=== PATIENT | female | born 2000 | race Caucasian/White ===

== ENCOUNTER 2024-06-10 20:53 | Outpatient (REF) | payer BC, SELFPAY | END 2024-06-10 20:54 | disposition home or self-care (01) | LOC: LAB 20:53 | PROVIDERS: Visit Provider Obstetrics & Gynecology | DX: Z01.419 Encounter for gynecological examination (general) (routine) without abnormal findings (principal) | CPT/HCPCS: 88175 ==

== ENCOUNTER 2024-12-03 16:11 | Outpatient (OUT) | payer BC, SELFPAY ==
--- OUTSIDE RECORDS SUMMARY | 2024-12-03 16:19 | XMS_ITS | CCD ---
Author Organization [facility] [place] [facility] Care Team Providers Care Internet Database Specialist Name Role Phone Ihsan Camarillo Unavailable [phone] Delroy Aguirre Unavailable Unavailable Goodridge, Ramila Martínez Unavailable Unavailable Unavailable MD FRANK GOFF Attending Unavailable Sivan, Mrs. Washingtonlesia Quintanilla Primary Care Unavailabl e Goodridge, Mrs. Washington[place]ia Quintanilla Referring Unavailabl e Sippey, Dr. Wing Attending Unavailable Sivan, Mrs. Washington[place]ia Quintanilla Primary Care Unavailabl e Sivan, Talha Ramilalesia Quintanilla Attending Unavailabl e Goodridge, Mrs. [place]ia Quintanilla Primary Care Unavailabl e Sivan, Ramila Quintanilla Referring Unavailabl e Goodridge, Mrs. [place]ia Quintanilla Referring Unavailabl e Goodridge, Talha Quintanilla Attending Unavailabl e Sivan, Mrs. Washington[place]ia Quintanilla Primary Care Unavailabl e Goodridge, Mrs. Washington[place]ia Quintanilla Referring Unavailabl e Sivan, Ramila Quintanilla Attending Unavailabl e Sivan, Talha Quintanilla Primary Care Unavailabl e Goodridge [employer]-Ramila PERSON Primary Care Provider Goodridge ARDEN-Ramila PERSON Unavailable SIVAN, RAMILA Martínez Primary Care Unavailable SIVAN, RAMILA Martínez Primary Care Unavailable Iliano Gladys DUNLAP Unavailable Stentz Josr PINTO Primary Care Provider Ihsan Camarillo MD Primary Care Provider Unavailable Primary Care Provider Unavailabl e Stentz PAJosr Orlando Primary Care Provider STENTJOSR Walton Primary Care Unavailable DELROY AGUIRRE Attending Unavailable JOSSUE, Edy R Admitting Unavailable JOSSUE, Edy R Attending Unavailable STENTZ, JOSR Primary Care Physician [phone] STENTZ, JOSR Primary Care Unavailable JOSSUE, EDY Referring Unavailable JOSSUE, EDY Attending Unavailable JOSSUE, Edy R Attending Unavailable JOSSUE, Edy R Admitting Unavailable Stentz Josr BROWNE Primary Care Provider [phone] JOSSUE, EDY Attending Unavailable JOSSUE, EDY Attending Unavailable STENTZ, JOSR Attending Unavailable STENTZ, JOSR Primary Care Unavailable STENTZ, JOSR Primary Care Unavailable BRENNON BURT Attending Unavailable STENTZ, JOSR Attending Unavailable STENTZ, JOSR Referring Unavailable STENTZ, JOSR Primary Care Unavailable Medications Current Medications Medication Drug Class(es) Dates Sig (Normalized) Sig (Original) ascorbic acid 1000 mg oral tablet (7 sources) Vitamin C take 1 tablet by mouth in the morning Ascorbic Acid (vitamin C) 1000 MG tablet Take 1,000 mg by mouth in the morning. Active azithromycin 500 mg oral tablet (2 sources) Macrolide Antimicrobial Start: 01-09-2024 End: 01-12-2024 take 1 tablet by mouth once daily azithromycin (Zithromax) 500 mg tablet Indications: Traveler's diarrhea Take 1 tablet (500 mg) by mouth once daily for 3 days. 3 tablet 01/09/2024 01/12/2024 Active Start: 02-19-2021 take 2 tablets by mo uth once, then take 1 tablet by mouth once daily azithromycin 250 mg oral tablet ; Take 2 tabs (500mg) x 1 days, then 1 tab (250mg) once daily x 4 days Quantity: 6 Refills: 0 Ordered: 19-Feb-2021 Delroy Aguirre Start: 19-Feb-2021 Generic Substitution Allowed Comments: Do not take dairy products, antacids, or iron preparations within one hour of this medication.Finish all this medication unless otherwise directed by prescriber. Comment on above: Do not take dairy pr oducts, antacids, or iron preparations within one hour of this medication.Finish all this medication unless otherwise directed by prescriber. b complex 0.4 mg tablet (4 sources) Start: 05-03-2023 End: 05-02-2024 take 1 tablet by mouth once daily b complex 0.4 mg tablet Indications: Low vitamin B12 level Take 1 tablet by mouth once daily. 90 tablet 3 05/03/2023 05/02/2024 Active take 1 tablet by mouth once fritz y b complex 0.4 mg tablet Take 1 tablet by mouth once daily. 0 Active 12 hr buPROPion hydrochloride 150 mg extended release oral tablet (13 sources) Aminoketone Start: 02-03-2023 End: 11-23-2024 take 1 tablet by mouth once daily buPROPion SR (Wellbutrin SR) 150 mg 12 hr tablet Indications: Generalized anxiety disorder Take 1 tablet (150 mg) by mouth once daily. 90 tablet 3 11/24/2023 11/23/2024 Active Start: 03-17-2022 take 1 tablet by diane th once daily buPROPion HCl ER (SR) 150 MG Oral Tablet Extended Release 12 Hour Take 1 tablet daily Quantity: 30 Refills: 5 Ordered: 14-Sep-2022 Ramila Burden Start : 17-Mar-2022 Active busPIRone hydrochloride 5 mg oral tablet (12 sources) Start: 02-03-2023 End: 11-24-2023 busPIRone (Buspar) 5 mg tabl et Indications: Generalized anxiety disorder Take 1 tablet in AM and 2 tablets in PM 270 tablet 3 11/24/2023 Active Start: 06-16-2022 take 1 tablet by diane th in the morning, then take 2 tablets by mouth at bedtime busPIRone HCl - 5 MG Oral Tablet Take 1 tablet in AM, and take 2 tablets at bedtime Quantity: 90 Refills: 5 Ordered: 16-Jun-2022 Ramila Burden Start : 16-Jun-2022 Active cholecalciferol 0.025 mg oral capsule (4 sources) Vitamin D Start: 05-03-2023 End: 05-02-2024 take 2 capsules by mouth once daily cholecalciferol (Vitamin D3) 25 MCG (1000 UT) capsule Indications: Vitamin D insufficiency Take 2 capsules (50 mcg) by mouth once daily. 180 capsule 3 05/03/2023 05/02/2024 Active take 2 capsules by mouth once da destiny cholecalciferol (Vitamin D3) 25 MCG (1000 UT) capsule Take 2 capsules (50 mcg) by mouth once daily. 0 Active Ethinyl Estradiol / Ferrous fumarate / Norethindrone (8 sources) Estrogen Start: 11-24-2023 End: 06-10-2024 norethindrone-ethinyl estradiol-iron (Microgestin FE .12/13) 1.5-30 MG-MCG tablet Take 1 tablet by mouth in the morning. 11/24/2023 06/10/2024 Discontinued (Therapy completed) Start: 11-24-2023 take 1 tablet by diane th once daily norethindrone-e.estradioL-iron (Junel FE 1.12/13, 28,) 1.5 mg-30 mcg (21)/75 mg (7) tablet Indications: Premenstrual migraine , Premenstrual syndrome Take 1 tablet by mouth once daily. 28 tablet 12 11/24/2023 Active Start: 05-03-2023 End: 11-24-2023 take 1 tablet by mouth once daily norethindrone-e.estradioL-iron (Junel FE .12/13, 28,) 1.5 mg-30 mcg (21)/75 mg (7) tablet Indications: Premenstrual migraine , Premenstrual syndrome Take 1 tablet by mouth once daily. 28 tablet 12 05/03/2023 11/24/2023 Discontinued (Reorder) Start: 05-03-2023 take 1 tablet by diane th once daily norethindrone-e.estradioL-iron (Junel FE 1.12/13, 28,) 1.5 mg-30 mcg (21)/75 mg (7) tablet Indications: Premenstrual migraine , Premenstrual syndrome Take 1 tablet by mouth once daily. 28 tablet 12 05/03/2023 Active Start: 03-19-2023 take 1 tablet by diane th once daily Junel FE 1.12/13, 28, 1.5 mg-30 mcg (21)/ 75 mg (7) tablet Take 1 tablet by mouth once daily. 0 03/19/2023 Active Ethinyl Estradiol / norgestimate (2 sources) Progestin, Estrogen Start: 06-25-2021 Norgestim- Eth Estrad Triphasic (ORTHO TRI-CYCLEN, 28,) 0.18/0.215/0.25 MG-35 MCG TABS Take by mouth 06/25/2021 Active Start: 12-20-2019 Ortho Tri-Cycl en oral tablet 1 tab(s), Oral, Daily, 84 tab(s), Refill(s) 0 Start Date: 12/20/19 Status: Ordered Quantity: 84.0 Unit: tab(s) Repeat number: 1 FLUoxetine 20 mg oral capsule (1 source) Serotonin Reuptake Inhibitor Start: 06-25-2021 take 1 capsule by mouth once daily FLUoxetine (PROZAC) 20 MG capsule Take 20 mg by mouth nightly 06/25/2021 Active glycopyrrolate 2 mg oral tablet (17 sources) Start: 08-04-2023 End: 11-23-2024 take 1 tablet by mouth in the morning glycopyrrolate (Robinul) 2 MG tablet Take 2 mg by mouth in the morning and 2 mg in the evening. 11/24/2023 11/08/2024 Discontinued Start: 12-20-2019 take 2 tablets by mo uth once daily Glycopyrrolate 2 MG Oral Tablet Take 2 tablets by mouth daily Quantity: 180 Refills: 2 Ordered: 02-Aug-2022 Ramila Burden Start : 02-Aug-2022 Active 24 hr metFORMIN hydrochloride 500 mg extended release oral tablet (5 sources) Biguanide Start: 06-10-2024 End: 06-10-2025 take 1 tablet by mouth every twenty-four hours at mealtime metFORMIN XR (Glucophage-XR) 500 MG 24 hr tablet Indications: Insulin resistance Take 1 tablet (500 mg) by mouth in the evening. Take with meals Do not crush, chew, or split. 30 tablet 11 06/10/2024 11/08/2024 Discontinued nitrofurantoin, macrocrystals 25 mg / nitrofurantoin, monohydrate 75 mg oral capsule (1 source) Nitrofuran Antibacterial Start: 05-22-2023 End: 05-27-2023 take 1 capsule by mouth twice daily nitrofurantoin, macrocrystal-monohy drate, (Macrobid) 100 mg capsule Indications: Burning with urination Take 1 capsule (100 mg) by mouth 2 times a day for 5 days. 10 capsule 0 05/22/2023 05/27/2023 Active oseltamivir 75 mg oral capsule (2 sources) Neuraminidase Inhibitor Start: 09-18-2024 End: 11-08-2024 take 1 capsule by mouth twice daily oseltamivir (Tamiflu) 75 MG capsule TAKE 1 CAPSULE (75 MG) BY MOUTH TWICE A DAY FOR 5 DAYS 09/18/2024 11/08/2024 Discontinued w/o A Vit-Fe Fum-FA (PRENATA PO) (1 source) w/o A Vit-Fe Fum-FA (PRENATA PO) Take by mouth Active vitamin b12 1 mg/ml injectable solution (2 sources) Vitamin B12 Start: 10-11-2022 End: 03-21-2023 cyanocobalamin (Vitamin B-12) 1,000 mcg/mL injection Inject 1 mL (1,000 mcg) into the shoulder, thigh, or buttocks every 7 days. 0 10/11/2022 03/21/2023 Discontinued (Therapy completed) Start: 09-15-2022 inject 1 mL by intra muscular injection every week Cyanocobalamin 1000 MCG/ML Injection Solution INJECT 1 ML Intramuscular once a week for 4 weeks Quantity: 1 Refills: 3 Ordered: 15-Sep-2022 Ramila Burden Start : 15-Sep-2022 Active Completed/Discontinued Medications Medication Drug Class(es) Dates Sig (Normalized) Sig (Original) ergocalciferol 0.05 mg oral tablet (2 sources) Provitamin D2 Compound Start: 09-14-2022 Vitamin D2 50 MCG (1999 UT) Oral Tablet Quantity: 0 Refills: 0 Ordered: 14-Sep-2022 Ramila Burden Start : 14-Sep-2022 Active hydrOXYzine hydrochloride 10 mg oral tablet (6 sources) Antihistamine Start: 03-17-2022 take 1-2 tablets by mouth twice daily as needed for anxiety hydrOXYzine HCl - 10 MG Oral Tablet may take 1-2 tablets twice daily as needed for stress/anxiety Quantity: 60 Refills: 0 Ordered: 17-Mar-2022 Ramila Burden Start : 17-Mar-2022 Active Norethindrone Acet-Ethinyl Est 1.5-30 MG-MCG Oral Tablet (6 sources) Norethindrone Acet-Ethinyl Est 1.5-30 MG-MCG Oral Tablet TAKE 1 TABLET DAILY. Quantity: 0 Refills: 0 Ordered: 17-Mar-2022 DO Active Mylan ondansetron 4 mg oral tablet (6 sources) Serotonin-3 Receptor Antagonist Ondansetron HCl - 4 MG Oral Tablet Quantity: 0 Refills: 0 Ordered: 17-Mar-2022 DO Active Vitamin B Complex Oral Tablet (2 sources) Start: 09-14-2022 take 1 tablet by mouth once daily Vitamin B Complex Oral Tablet TAKE 1 TABLET DAILY. Quantity: 0 Refills: 0 Ordered: 14-Sep-2022 Ramila Burden Start : 14-Sep-2022 Active Vitamin C TABS (6 sources) Vitamin C TABS Quantity: 0 Refills: 0 Ordered: 17-Mar-2022 DO Active Problems Active Problems Problem Classification Problem Date Documented Date Episodic/Chronic Abdominal pain (3 sources) Lower abdominal pain, unspecified; Translations: [Abdominal pain] Onset: 09-28-2022 09-28-2022 Episodic Anxiety disorders (16 sources) Generalized anxiety disorder; Translations: [Generalized anxiety disorder] Onset: 01-27-2023 03-21-2023 Chronic Appendicitis and other appendiceal conditions (2 sources) Unspecified acute appendicitis; Translations: [Acute appendicitis] Onset: 09-28-2022 10-05-2022 Episodic Cardiac dysrhythmias (2 sources) Tachycardia; Translations: [Tachycardia, unspecified] Episodic Genitourinary symptoms and ill-defined conditions (3 sources) Scalding pain on urination ; Translations: [Dysuria] Onset: 05-23-2023 05-22-2023 Episodic Headache; including migraine (15 sources) Menstrual migraine; Translations: [Menstrual migraine, without mention of intractable migraine without mention of status migrainosus] Onset: 03-21-2023 03-21-2023 Chronic Immunizations and screening for infectious disease (1 source) Contact with or exposure to other viral diseases; Translations: [Contact with and (suspected) exposure to covid-19] 10-05-2022 Episodic Influenza (3 sources) Influenza due to Influenza A virus; Translations: [Influenza due to other identified influenza virus with other respiratory manifestations] Onset: 09-18-2024 09-18-2024 Episodic Menstrual disorders (1 source) Missed period; Translations: [Irregular menstruation, unspecified] 11-08-2024 Chronic Nutritional deficiencies (10 sources) Vitamin D deficiency; Translations: [Unspecified vitamin D deficiency] Onset: 03-21-2023 03-21-2023 Chronic Other endocrine disorders (11 sources) Hypoglycemia; Translations: [Hypoglycemia, unspecified] Onset: 03-21-2023 03-21-2023 Chronic Other female genital disorders (13 sources) Premenstrual tension syndrome; Translations: [Premenstrual tension syndromes] Onset: 03-21-2023 03-21-2023 Chronic Other female genital disorders (2 sources) Premenstrual tension syndrome; Translations: [Premenstrual tension syndrome] Onset: 03-21-2023 Chronic Other liver diseases (2 sources) Unspecified jaundice; Translations: [Unspecified jaundice] Onset: 03-21-2023 Episodic Other nutritional; endocrine; and metabolic disorders (2 sources) Insulin resistance; Translations: [Insulin resistance] 06-10-2024 Chronic Other nutritional; endocrine; and metabolic disorders (1 source) Overweight in adulthood with body mass index of 25 or more but less than 30 05-04-2020 Episodic Other and delivery including normal (2 sources) ; Translations: [Encounter for supervision of normal , unspecified, unspecified trimester] 11-08-2024 Episodic Other skin disorders (14 sources) Hyperhidrosis; Translations: [Primary focal hyperhidrosis] Onset: 03-21-2023 03-21-2023 Episodic Other upper respiratory infections (5 sources) Acute pharyngitis; Translations: [Acute pharyngitis] Onset: 09-18-2024 02-19-2021 Episodic Spondylosis; intervertebral disc disorders; other back problems (1 source) Low back pain; Translations: [Low back pain, unspecified] 10-05-2022 Episodic Substance-related disorders (2 sources) Nicotine dependence, other tobacco product, uncomplicated; Translations: [Tobacco dependence syndrome] Onset: 09-28-2022 10-05-2022 Chronic Unclassified (2 sources) SORE THROAT, EAR PAIN 02-19-2021 Comment on above: SORE THROAT, EAR BRIAN N Unclassified (1 source) Contact with and (suspected) exposure to COVID-19; Translations: [Contact with and (suspected) exposure to COVID-19] Onset: 09-28-2022 Unclassified (1 source) Low back pain, unspecified; Translations: [Low back pain, unspecified] Onset: 09-28-2022 Unclassified (2 sources) pt here for 1 yr follow up Onset: 11-19-2024 Viral infection (1 source) Infectious mononucleosis 05-04-2020 Episodic Past or Other Problems Problem Classification Problem Date Documented Date Episodic/Chronic Intestinal infection (3 sources) Traveler's diarrhea; Translations: [Infectious gastroenteritis and colitis, unspecified] Onset: 01-09-2024 01-09-2024 Episodic Nutritional deficiencies (13 sources) Decreased vitamin B12 level; Translations: [Other B-complex deficiencies] Onset: 03-21-2023 03-21-2023 Episodic Other liver diseases (12 sources) Increased bilirubin level; Translations: [Disorders of bilirubin excretion] Onset: 03-21-2023 03-21-2023 Episodic Other skin disorders (2 sources) Generalized hyperhidrosis; Translations: [Generalized hyperhidrosis] Onset: 03-21-2023 Episodic Unclassified (3 sources) Onset: 11-24-2023 11-24-2023 Results Test Name Value Interpretation Reference Range Facility HCG ( test) Ql (U)o n 11-08-2024 Interpretation and review of laboratory results Abnormal [facility] Preg Test, Ur Positive Negative [facility] US OB TRANSVAGINALon 025 US OB TRANSVAGINAL EXAM: US OB TRANSVAG INAL HISTORY: Dating. LMP 09/06/2024. Beta HCG on 10/14/2024 was 394.31. G1. COMPARISON: None available. TECHNIQUE: Two-dimensional transvaginal grayscale, color and spectral Doppler ultrasound imaging of the pelvis was performed. FINDINGS: The uterus demonstrates a normal homogeneous echotexture. The cervical os is closed. The right ovary measures 2.1 x 2.0 x 2.1 cm and demonstrates a normal echotexture. There is normal color and spectral Doppler flow. The left ovary measures 3.1 x 1.6 x 3.0 cm and demonstrates a normal echotexture. There is normal color and spectral Doppler flow. No fluid is present within the cul-de-sac. There is a single, live intrauterine gestation identified with a heart rate of 158 beats per minute and a crown-rump length measurement of 1.4 cm, correlating to a gestational age of 7 weeks 5 days (+/- 5 days). There is no subchorionic hemorrhage visualized. A yolk sac is visualized. IMPRESSION: 1. Single, live intrauterine gestation 9 weeks, 0 days by LMP. Today's ultrasound measurements correlate with a gestational age of 7 weeks 5 days (+/- 5 days). RHIANNA by today's ultrasound is June 22, 2025. 2. Normal color and spectral Doppler evaluation of the bilateral ovaries. Interpreted by: Electronically signed by FRANDY CABRAL II, MD, PHD at 11-Nov-2024 08:34:10 AM [facility] Normal Not Available Comment on above: Order Comment: US OB TRANSVAGINAL No LMP recorded. Urinalysis macro (dipstick) panel (U)on 11-08-2024 Bilirubin, UA Negative Negative - 4(70) +++ mg/dL [facility] Blood, UA Negative Negative - 50 Richard/mcL [facility] Clarity, UA Clear [facility] Color, UA Yellow [facility] Glucose, UA Negative Negative - 2000(110) ++++ mg/dL [facility] Interpretation and review of laboratory results Normal [facility] Ketones, UA Negative Negative - 160(16) ++++ mg/dL [facility] Leukocytes, UA Negative Negative - 500+++ Garry/mcL [facility] Nitrite, UA Negative Negative - Positive [facility] pH, UA 7 5 - 9 [facility] Protein, UA Negative Negative - 2000(20) ++++ mg/dL [facility] Spec Grav, UA 1.025 1 - 1.03 [facility] Urobilinogen, UA 0.2 0.2 - 12 mg/dL [facility] BHCG,QUANTITATIVEon 10-15-19 25 CG,QUANTITATIVE 394.31 MIU/ML Normal [facility] Comment on above: Result Comment: [facility] INTERPRETIVE RANGES: NON FEMALE 0-6 MIU/ML MALE ADULT 0-2 MIU/ML 0-1 WEEK 6-50 MIU/ML 1-2 WEEKS 40-300 MIU/ML 2-3 WEEKS 100-1,000 MIU/ML 3-4 WEEKS 500-6,000 MIU/ML 1-2 MONTHS 5,000-200,000 MIU/ML 2-3 MONTHS 10,000-100,000 MIU/ML 2ND TRIMESTER 3,000-50,000 MIU/ML 3RD TRIMESTER 1,000-50,000 MIU/ML If an hCG level is inconsistent with, or unsupported by, clinical evidence, results should be confirmed by an alternate hCG method. This method may include the qualitative hCG testing of urine. Performed By: #### F X, [id number] #### Testing performed at [address] [address] FAX REQUESTon 10-14-2024 FAX TO [phone] Normal [facility] Comment on above: Performed By: #### Rashawn Arroyo, StoneG2 #### Testing performed at [address] [facility] Quanton 10-12-2024 HCG.beta subunit Qn 156 m[IU]/mL High 1-3 Fis her [facility] Comment on above: Result Comment: 'F N ON < 1 - 3' ' 0.2 - 1 WEEK = 5 TO 50' ' 1 - 2 WEEKS = 50 - 500' ' 2 - 3 WEEKS = 100 - 5000' ' 3 - 4 WEEKS = 500 - 44963' ' 4 - 5 WEEKS = 1000 - 15213' ' 5 - 6 WEEKS = 76273 - 715690' ' 6 - 8 WEEKS = 71679 - 068275' ' 8 - 12 WEEKS = 25491 - 688693' Performed By: #### 2 [id number] #### [facility] [address] [place] [address] CHEMISTRYOrdered By: SYSTEM SYSTEM on 10-12-2024 HCG.beta subunit Qn 156 m[IU]/mL High 1 - 3 mIU/mL R emisol Chem Comment on above: Result Comment: 'F N ON < 1 - 3' ' 0.2 - 1 WEEK = 5 TO 50' ' 1 - 2 WEEKS = 50 - 500' ' 2 - 3 WEEKS = 100 - 5000' ' 3 - 4 WEEKS = 500 - 14415' ' 4 - 5 WEEKS = 1000 - 83463' ' 5 - 6 WEEKS = 64507 - 936150' ' 6 - 8 WEEKS = 20809 - 641680' ' 8 - 12 WEEKS = 38705 - 486564' POCT SARS-COV-2/FLU/RSV PCR SYMPTOMATIC manually resultedon 09-18-2024 FLUAV RNA CHERYL+probe Ql (Resp) Detected Abnormal Not Detected [facility] Work Phone: FLUBV RNA CHERYL+probe Ql (Resp) Not detected Not Detected [facility] Work Phone: Interpretation and review of laboratory results Abnormal [facility] Work Phone: RSV RNA CHERYL+probe Ql (Resp) Not detected Not Detected [facility] Work Phone: SARS-CoV-2 (COVID-19) RNA CHERYL+probe Ql (Resp) Not detected Not Detected [facility] Work Phone: [facility] Work Phone: IGP,APTIMA HPV,AGE GDLNon AGE GDLN ACOG TESTING Note . [facility] Comment on above: TESTS RESULT FLAG UN ITS REF RANGE LAB Clinician Provided Cytology Information Source.............Cervix;Endocervix No. of containers..01 ThinPrep Vial Age Algo ACOG Renée... FLAG LEGEND: L-Low Normal,H-High Normal,LL-Alert Low,HH-Alert High <-Panic Low,>-Panic High,A-Abnormal,AA-Critical Abnormal Performed at: 01 [facility] [address] [place] [address] Payton Womack MD, IGP, RFX APTIMA HPV ASCU Note . [facility] Comment on above: TESTS RESULT FLAG UN ITS REF RANGE LAB DIAGNOSIS: 02 NEGATIVE FOR INTRAEPITHELIAL LESION OR MALIGNANCY. THIS SPECIMEN WAS RESCREENED PART OF OUR FIBERGLASS ROLLER PROGRAM. Specimen adequacy: 02 Satisfactory for evaluation. Endocervical and/or squamous metaplastic cells (endocervical component) are present. Performed by: Rhonda Calero, Axle And Frame Mechanic (ASCP) QC reviewed by: Rhonda Jasso, Axle And Frame Mechanic (ASCP) . 02 Note: Note 02 The Pap smear is a screening test designed to aid in the detection of premalignant and malignant conditions of the uterine cervix. It is not a diagnostic procedure and should not be used as the sole means of detecting cervical cancer. Both false-positive and false-negative reports do occur. Test Methodology: Note 02 This liquid based ThinPrep(R) pap test was screened with the use of an image guided system. . 02 The HPV DNA reflex criteria were not met with this specimen result therefore, no HPV testing was performed. FLAG LEGEND: L-Low Normal,H-High Normal,LL-Alert Low,HH-Alert High <-Panic Low,>-Panic High,A-Abnormal,AA-Critical Abnormal Performed at: [address] [address] Payton Womack MD, Performed at: = - [facility] [address] [id number] Flower Maker: Payton Womack MD, Phone: [phone] Performed at: [address] [id number] Flower Maker: Payton Womack MD, Phone: [phone] BRUSH-SPATULA CERVIX ENDOCERVIX CLIN[facility] Bacteria identifiedon 2022 Bacteria identified Cx Nom (U) Test: Urine Culture Specimen Source: Clean Catch/Voided Specimen Type: Urine Specimen Date: 05/23/2023 8:34 AM Result Date: 05/26/2023 10:10 AM Result Status: Final result Abnormal: Yes Resulting Lab: [facility] [address] [place] [address] CULTURE >100,000 Klebsiella pneumoniae/variicola (Abnormal) SUSCEPTIBILITY Klebsiella pneumoniae/variic- galina METHOD MICROSCAN AMOXICILLIN/CLAVULANATE -- Susceptible AMPICILLIN -- Resistant AMPICILLIN/SULBACTAM -- Susceptible CEFAZOLIN -- Susceptible CEFAZOLIN (UNCOMPLICATED UTIS ONLY) -- Susceptible CIPROFLOXACIN -- Susceptible GENTAMICIN -- Susceptible NITROFURANTOIN -- Intermediate PIPERACILLIN/TAZOBACTAM -- Susceptible TRIMETHOPRIM/SULFAMETHOX AZOLE -- Susceptible Abnormal [facility] Comment on above: Performed By: #### 6 30-4 #### PALMER Martínez ([id number]) [facility] ([facility]) [address] [place] [address] Urinalysis complete panel (U )on 05-23-2023 Appearance (U) Hazy Normal Clear [facility] Comment on above: Performed By: #### 2 [id number] #### MELITA Good ([id number]) [facility] [address] [place] [id number] Bilirubin (U) [Mass/Vol] Negative Normal NEGATIVE [facility] Comment on above: Performed By: #### 2 [id number] #### MELITA Good ([id number]) [facility]) [address] [place], [place] [address] 29133 Color (U) Yellow Normal Straw, Yellow [facility] Comment on above: Performed By: #### 2 4356-8 #### MELITA Good ([id number]) [facility] ([facility]) [address] [place] [address] 32171 Glucose Auto test strip (U) [Mass/Vol] Negative Normal NEGATIVE [facility] Comment on above: Performed By: #### 2 4356-8 #### MELITA Good ([id number]) [facility] ([facility]) [address] [place] [address] 27024 Ketones (U) [Mass/Vol] Negative Normal NEGATIVE [facility] Comment on above: Performed By: #### 2 4356-8 #### MELITA Good ([id number]) [facility] ([facility]) [address] [place] [address] 64373 Leukocyte esterase Auto test strip Ql (U) TRACE Abnormal NEGATIVE [facility] Comment on above: Performed By: #### 2 4356-8 #### MELITA Good ([id number]) [facility] ([facility]) [address] [place] [address] 26306 Nitrite Auto test strip Ql (U) Negative Normal NEGATIVE [facility] Comment on above: Performed By: #### 2 4356-8 #### MEILTA Good ([id number]) [facility] ([facility]) [address] [place] [address] 17855 pH (U) 6.0 [pH] Normal 5.0, 5.5, 6.0, 6.5, 7.0, 7.5, 8.0 [facility] Comment on above: Performed By: #### 2 4356-8 #### MELITA Good ([id number]) [facility] ([facility]) [address] [place] [address] 20204 Protein (U) [Mass/Vol] Negative Normal NEGATIVE [facility] Comment on above: Performed By: #### 2 4356-8 #### MELITA Good ([id number]) [facility] ([facility]) [address] [place] [address] 52482 RBC (U) [#/Vol] Negative Normal NEGATIVE [facility] Comment on above: Performed By: #### 2 4356-8 #### MELITA Good ([id number]) [facility] ([facility]) [address] [place] [address] 23313 Specific gravity (U) [Rel density] 1.016 Normal 1.005-1.035 [facility] Comment on above: Performed By: #### 2 4356-8 #### MELITA Good ([id number]) [facility] (C) [address] [place] [address] 11552 Urobilinogen (U) [Mass/Vol] 2.0 mg/dL Normal <2.0 [facility] Comment on above: Result Comment: Due to a manufacturing issue, low positive urobilinogen results may be falsely positive. Correlate with urine bilirubin and additional clinical/laboratory findings to assess the risk of hemolytic anemia or liver disease. If clinically indicated, repeat testing with an alternate method is available by contacting the laboratory within 24 hours. Some pigments and medications may cause a false positive urobilinogen. Performed By: #### 2 4356-8 #### MELITA Good ([id number]) [facility] ([facility]) [address] [place] [address] 59800 Urinalysis microscopic panel Auto Ql (U)on 05-23-2023 Bacteria Auto (Urine sed) [#/Area] 4+ /HPF Abnormal NONE SEEN [facility] Comment on above: Performed By: #### 5 3315-8 #### MELITA Good ([id number]) [facility] ([facility]) [address] [place] [address] 40579 Epithelial cells.squamous Auto (Urine sed) [#/Area] 1-9 (SPARSE) Normal Reference range not established. [facility] Comment on above: Performed By: #### 5 3315-8 #### MELITA Good ([id number]) [facility] (EM) [address] [place] [address] 63480 Mucus Auto (Urine sed) [#/Area] 2+ /LPF Normal Reference range not established. [facility] Comment on above: Performed By: #### 5 3315-8 #### MELITA Good ([id number]) [facility] ([facility]) [address] [place] [address] 36821 RBC Auto (Urine sed) [#/Area] 1-2 Normal NONE, 1-2, 3-5 [facility] Comment on above: Performed By: #### 5 3315-8 #### MELITA Good ([id number]) [facility] ([facility]) [address] [place] [address] 40182 WBC Auto (Urine sed) [#/Area] 11-20 Abnormal 1-5, NONE [facility] Comment on above: Performed By: #### 5 3315-8 #### MELITA Good ([id number]) [facility] ([facility]) [address] [place] [address] 22826 HEPATIC FUNCTION PANELon Albumin [Mass/Vol] 4.5 g/dL Normal 3.4 - 5.0 [facility] Comment on above: Performed By: #### H EPFP #### [address] [id number] ALP [Catalytic activity/Vol] 38 U/L Normal 33 - 110 [facility] Comment on above: Performed By: #### H EPFP #### [address] [id number] ALT [Catalytic activity/Vol] 18 U/L Normal 7 - 45 [facility] Comment on above: Result Comment: Saumya ents treated with Sulfasalazine may generate falsely decreased results for ALT. Performed By: #### H EPFP #### [address] [id number] AST [Catalytic activity/Vol] 22 U/L Normal 9 - 39 [facility] Comment on above: Performed By: #### H EPFP #### [address] [id number] Bilirubin [Mass/Vol] 1.2 mg/dL Normal 0.0 - 1.2 [facility] Comment on above: Performed By: #### H EPFP #### [address] [id number] Bilirubin.indirect [Mass/Vol] 0.2 mg/dL Normal 0.0 - 0.3 [facility] Comment on above: Performed By: #### H EPFP #### [address] [id number] Protein [Mass/Vol] 7.4 g/dL Normal 6.4 - 8.2 [facility] Comment on above: Performed By: #### H EPFP #### [address] [id number] URINALYSISon 04-07-2023 Appearance (U) HAZY Normal CLEAR [facility] Comment on above: Performed By: #### U A #### [address] [id number] Bilirubin Ql (U) Negative Normal NEGATIVE [facility] Comment on above: Performed By: #### U A #### [address] [id number] Color (U) YELLOW Normal STRAW,YELLOW [facility] Comment on above: Performed By: #### U A #### [address] [id number] Glucose Ql (U) Negative Normal NEGATIVE [facility] Comment on above: Performed By: #### U A #### [address] [id number] Hemoglobin Ql (U) Negative Normal NEGATIVE [facility] Comment on above: Performed By: #### U A #### [address] [id number] Ketones Ql (U) Negative Normal NEGATIVE [facility] Comment on above: Performed By: #### U A #### [address] [id number] Leukocyte esterase Test strip Ql (U) Negative Normal NEGATIVE [facility] Comment on above: Performed By: #### U A #### [address] [id number] Nitrite Ql (U) Negative Normal NEGATIVE [facility] Comment on above: Performed By: #### U A #### [address] [id number] pH (U) 7.0 [pH] Normal 5.0 - 8.0 [facility] Comment on above: Performed By: #### U A #### [address] [id number] Protein Ql (U) Negative Normal NEGATIVE [facility] Comment on above: Performed By: #### U A #### [address] [id number] Specific gravity (U) [Rel density] 1.009 Normal 1.005 - 1.035 [facility] Comment on above: Performed By: #### U A #### [address] [id number] Urobilinogen (U) [Mass/Vol] mg/dL Normal 0.0 - 1.9 [facility] Comment on above: Performed By: #### U A #### [address] [id number] Lab Specimen Source Normal [facility] Comment on above: Performed By: #### U A #### [address] [id number] Performed By: #### H EPFP #### [address] [id number] Performed By: #### V TB12 #### [address] [id number] VITAMIN B12on 04-07-2023 Cobalamin (Vitamin B12) [Mass/Vol] 430 pg/mL Normal 211 - 911 [facility] Comment on above: Performed By: #### V TB12 #### [address] [id number] Post Op (General Surgery)on 10-17-2022 Post Op (General Surgery) Diagnoses/Problems History of Appendectomy laparoscopic Laparoscopic appendectomy 09/28/[address] Goff for acute appendicitis Provider Impressions Ms. Palm is a 22-year-old female s/p laparoscopic appendectomy for acute appendicitis on 09/28/22. She is doing well without any symptoms of postoperative complication. She may return to work although recommend she avoid lifting anything greater than 25 pounds for another 2 weeks. After 10/29/22, she may return to work without restriction. We will fax a return to work note to her office at her request. My office will call her with the result of her pathology. She will otherwise follow-up on an as-needed basis. Chief Complaint s/p laparoscopic appendectomy History of Present IllnessMsTalha Palm is a 22-year-old female s/p laparoscopic appendectomy on 09/28/2022 for acute appendicitis. Her surgical pathology is still pending. She is doing well. She is afebrile. She is tolerating a regular diet and having bowel function. She is still a little sore at the left lower quadrant incision, but is only requiring ibuprofen intermittently for this. 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 She has refrain from any heavy lifting, but is otherwise beginning to resume activity. Review of Systems No fever, redness or drainage from incisions Active Problems Elevated bilirubin (277.4) (R17) Generalized anxiety disorder (300.02) (F41.1) Hyperhidrosis (705.21) (R61) Low blood sugar (251.2) (E16.2) Low vitamin B12 level (266.2) (E53.8) Premenstrual migraine (346.40) (G43.829) Premenstrual syndrome (625.4) (N94.3) Tachycardia (785.0) (R00.0) Vitamin D insufficiency (268.9) (E55.9) Surgical History History of Appendectomy laparoscopic Laparoscopic appendectomy 09/28/[address] 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) Allergies No Known Drug Allergies Recorded By: Lauren Norman; 03/17/2022 8:21:26 AM Current Meds Medication NameInstruction buPROPion HCl ER (SR) 150 MG Oral Tablet Extended Release 12 HourTake 1 tablet daily busPIRone HCl - 5 MG Oral TabletTake 1 tablet in AM, and take 2 tablets at bedtime Cyanocobalamin 1000 MCG/ML Injection SolutionINJECT 1 ML Intramuscular once a week for 4 weeks Glycopyrrolate 2 MG Oral TabletTake 2 tablets by mouth daily hydrOXYzine HCl - 10 MG Oral Tabletmay take 1-2 tablets twice daily as needed for stress/anxiety Norethindrone Acet-Ethinyl Est 1.5-30 MG-MCG Oral TabletTAKE 1 TABLET DAILY. Ondansetron HCl - 4 MG Oral Tablet Syringe Luer Lock 20G X 1 3 MLUSE DIRECTED. Vitamin B Complex Oral TabletTAKE 1 TABLET DAILY. Vitamin C TABS Vitamin D2 50 MCG (1999 UT) Oral Tablet Physical Exam No physical exam performed as this was a virtual telephone follow-up appointment. Patient denies any redness or drainage at the incision sites. Results/Data Surgical pathology pending. Signatures Electronically signed by : Frank Goff MD; Oct 17 2022 11:46AM EST (Author) Normal [email or web address] SURGICAL PATHOLOGY RESULTSon 10-17-2022 Pathology Report Name CHRIST PALM Pathologist: ROCKY SKY MD Date of Procedure: 09/28/2022 Date Received: 09/29/2022 Date Reported 10/17/2022 Submitting Physician: FRANK GOFF MD Location: [facility] Other External # FINAL DIAGNOSIS A. APPENDIX: -- APPENDIX WITH NO PATHOLOGIC DIAGNOSIS Electronically Signed Out By ROCKY SKY MD/[facility] By the signature on this report, the individual or group listed as making the Final Interpretation/Diagnosis certifies that they have reviewed this case. Diagnostic interpretation performed at [facility] [address] [place] [address] Clinical History: Physician Contact Number: [phone] Fixative (A): Formalin Clinical Diagnosis History CHRIST PALM is a 22 year old Female who presents to the emergency department with lower abdominal pain. Pain is located in the suprapubic region and right lower quadrant. It woke her from sleep early this morning. She tried to make herself vomit but was unable to. She denies any nausea. She does not have much of an appetite. Pain has persisted throughout the day. She denies ever having similar pain in the past. It is a little worse with movement. She has no known medical issues and has no previous abdominal surgery. She has no family history of inflammatory bowel disease or colon or rectal cancer. She normally has bowel movements every other day. She had a bowel movement this morning. In the emergency department, WBC is 10.7 with a slight neutrophil shift. CT scan of the abdomen and pelvis showed a fluid-filled appendix with mild wall enhancement and subtle periappendiceal inflammatory changes. K37 Appendicitis Specimens Submitted As: A: APPENDIX Gross Description: Received in formalin, labeled with the patient s name and hospital number and appendix , is an appendix, 8.3 x 0.7 x 0.7 cm. The mesoappendix measures 7.8 cm in length. The serosal surface is pink-pastrana, with focal pastrana-yellow fibrinous exudate. Cross sections reveal a dilated lumen measuring up to 0.5 cm. Purulent material is present. Lining Scrubber sections are submitted in 2 cassettes. [facility] Summary of Cassettes: Specimen Label Site A 1 perpendicular distal tip, proximal margin 2 technical sales representative sections of body [facility]/10/12/2022 [facility] Department of Pathology [address] [place] [address] CBC AND DIFFERENTIALon 09-28 % AUTOMATED IMMATURE GRAN 0.2 % Normal 0.0 - 0.9 [facility] Comment on above: Result Comment: Malinda ture Granulocyte Count (IG) includes promyelocytes, myelocytes and metamyelocytes but does not include bands. Percent differential counts (%) should be interpreted in the context of the absolute cell counts (cells/L). Performed By: #### C BCDF ####[address] [address] Basophils (Bld) [#/Vol] 0.05 10*3/uL Normal 0.00 - 0.10 [facility] Comment on above: Performed By: #### C BCDF ####[address] [address] Basophils/100 WBC (Bld) 0.5 % Normal 0.0 - 2.0 [facility] Comment on above: Performed By: #### C BCDF ####[address] [address] Eosinophils (Bld) [#/Vol] 0.02 10*3/uL Normal 0.00 - 0.70 [facility] Comment on above: Performed By: #### C BCDF ####[address] [address] Eosinophils/100 WBC (Bld) 0.2 % Normal 0.0 - 6.0 [facility] Comment on above: Performed By: #### C BCDF ####[address] [address] Erythrocyte distribution width (RBC) [Ratio] 12.1 % Normal 11.5 - 14.5 [facility] Comment on above: Performed By: #### C BCDF ####[address] [address] Hematocrit (Bld) [Volume fraction] 40.7 % Normal 36.0 - 46.0 [facility] Comment on above: Performed By: #### C BCDF ####[address] [address] Hemoglobin (Bld) [Mass/Vol] 13.7 g/dL Normal 12.0 - 16.0 [facility] Comment on above: Performed By: #### C BCDF ####[address] [address] Lymphocytes (Bld) [#/Vol] 1.05 10*3/uL Low 1.20 - 4.80 [facility] Comment on above: Performed By: #### C BCDF ####[address] [address] Lymphocytes/100 WBC (Bld) 9.8 % Normal 13.0 - 44.0 [facility] Comment on above: Performed By: #### C BCDF ####[address] [address] MCHC (RBC) [Mass/Vol] 33.7 g/dL Normal 32.0 - 36.0 [facility] Comment on above: Performed By: #### C BCDF ####[address] [address] MCV (RBC) [Entitic vol] 90 fL Normal 80 - 100 [facility] Comment on above: Performed By: #### C BCDF ####[address] [address] Monocytes (Bld) [#/Vol] 0.43 10*3/uL Normal 0.10 - 1.00 [facility] Comment on above: Performed By: #### C BCDF ####[address] [address] Monocytes/100 WBC (Bld) 4.0 % Normal 2.0 - 10.0 [facility] Comment on above: Performed By: #### C BCDF ####[address] [address] Neutrophils (Bld) [#/Vol] 9.17 10*3/uL High 1.20 - 7.70 [facility] Comment on above: Result Comment: Perc ent differential counts (%) should be interpreted in the context of the absolute cell counts (cells/L). Performed By: #### C BCDF ####[address] [address] Neutrophils/100 WBC (Bld) 85.3 % Normal 40.0 - 80.0 [facility] Comment on above: Performed By: #### C BCDF ####[address] [address] Platelets (Bld) [#/Vol] 257 10*3/uL Normal 150 - 450 [facility] Comment on above: Performed By: #### C BCDF ####[address] [address] RBC 4.51 x10E12/L Normal 4.00 - 5.20 [facility] Comment on above: Performed By: #### C BCDF ####[address] [address] WBC (Bld) [#/Vol] 10.7 10*3/uL Normal 4.4 - 11.3 [facility] Comment on above: Performed By: #### C BCDF ####[address] [address] CBC W Auto Differential pane l (Bld)on 09-28-2022 Basophils (Bld) [#/Vol] 0.05 10*3/uL [facility] Basophils/100 WBC (Bld) 0.5 % 0.0 - 2.0 % [facility] Eosinophils (Bld) [#/Vol] 0.02 10*3/uL [facility] Eosinophils/100 WBC (Bld) 0.2 % 0.0 - 6.0 % [facility] Erythrocyte distribution width (RBC) [Ratio] 12.1 % 11.5 - 14.5 % [facility] Hematocrit (Bld) [Volume fraction] 40.7 % 36.0 - 46.0 % [facility] Hemoglobin (Bld) [Mass/Vol] 13.7 g/dL 12.0 - 16.0 g/dL [facility] Immature granulocytes/100 WBC (Bld) 0.2 % 0.0 - 0.9 % [facility] Comment on above: Immature Granulocyte Count (IG) includes promyelocytes, myelocytes and metamyelocytes but does not include bands. Percent differential counts (%) should be interpreted in the context of the absolute cell counts (cells/L). Interpretation and review of laboratory results Abnormal [facility] Lymphocytes (Bld) [#/Vol] 1.05 10*3/uL Low [facility] Lymphocytes/100 WBC (Bld) 9.8 % 13.0 - 44.0 % [facility] MCHC (RBC) [Mass/Vol] 33.7 g/dL 32.0 - 36.0 g/dL [facility] MCV (RBC) [Entitic vol] 90 fL 80 - 100 fL [facility] Monocytes (Bld) [#/Vol] 0.43 10*3/uL [facility] Monocytes/100 WBC (Bld) 4.0 % 2.0 - 10.0 % [facility] Neutrophils (Bld) [#/Vol] 9.17 10*3/uL High [facility] Comment on above: Percent differential counts (%) should be interpreted in the context of the absolute cell counts (cells/L). Neutrophils/100 WBC (Bld) 85.3 % 40.0 - 80.0 % [facility] Platelets (Bld) [#/Vol] 257 10*3/uL [facility] RBC (Bld) [#/Vol] 4.51 10*6/uL [facility] WBC (Bld) [#/Vol] 10.7 10*3/uL [facility] COMPREHENSIVE PANELon 2022 Albumin [Mass/Vol] 4.4 g/dL Normal 3.4 - 5.0 [facility] Comment on above: Performed By: #### C MP #### [address] [address] ALP [Catalytic activity/Vol] 47 U/L Normal 33 - 110 [facility] Comment on above: Performed By: #### C MP #### [address] [address] ALT [Catalytic activity/Vol] 21 U/L Normal 7 - 45 [facility] Comment on above: Result Comment: Saumya ents treated with Sulfasalazine may generate falsely decreased results for ALT. Performed By: #### C MP #### [address] [address] Anion gap [Moles/Vol] 12 mmol/L Normal 10 - 20 [facility] Comment on above: Performed By: #### C MP #### [address] [address] AST [Catalytic activity/Vol] 28 U/L Normal 9 - 39 [facility] Comment on above: Performed By: #### C MP #### [address] [address] Bilirubin [Mass/Vol] 1.6 mg/dL High 0.0 - 1.2 [facility] Comment on above: Performed By: #### C MP #### [address] [address] Calcium [Mass/Vol] 9.4 mg/dL Normal 8.6 - 10.3 [facility] Comment on above: Performed By: #### C MP #### [place] [id number] Chloride [Moles/Vol] 104 mmol/L Normal 98 - 107 [facility] Comment on above: Performed By: #### C MP #### [address] [address] Creatinine [Mass/Vol] 0.89 mg/dL Normal 0.50 - 1.05 [facility] Comment on above: Performed By: #### C MP #### [address] [address] eGFR FEMALE >90 Normal >90 [facility] Comment on above: Result Comment: CALC ULATIONS OF ESTIMATED GFR ARE PERFORMED USING THE 2020 CKD-EPI STUDY REFIT EQUATION WITHOUT THE RACE VARIABLE FOR THE IDMS-TRACEABLE CREATININE METHODS. https://jasn.asnjournals.org/content///ASN.67786097 88 Performed By: #### C MP #### [address] [address] Glucose [Mass/Vol] 108 mg/dL High 74 - 99 [facility] Comment on above: Performed By: #### C MP #### [address] [address] HCO3 (Bld) [Moles/Vol] 24 mmol/L Normal 21 - 32 [facility] Comment on above: Performed By: #### C MP #### [address] [address] Potassium [Moles/Vol] 3.7 mmol/L Normal 3.5 - 5.3 [facility] Comment on above: Performed By: #### C MP #### [address] [address] Protein [Mass/Vol] 6.9 g/dL Normal 6.4 - 8.2 [facility] Comment on above: Performed By: #### C MP #### [address] [address] Sodium [Moles/Vol] 136 mmol/L Normal 136 - 145 [facility] Comment on above: Performed By: #### C MP #### [address] [address] Urea nitrogen [Mass/Vol] 8 mg/dL Normal 6 - 23 [facility] Comment on above: Performed By: #### C MP #### [place] [id number] CORONAVIRUS 2019 BY PCRon SARS-CoV-2 (COVID-19) RNA CHERYL+probe Ql (Unsp spec) Not detected Normal Not Detected [facility] Comment on above: Result Comment: . This test has received FDA Emergency Use Authorization (EUA) and has been verified by [facility]. This test is only authorized for the duration of time that circumstances exist to justify the authorization of the emergency use of in vitro diagnostic tests for the detection of SARS-CoV-2 virus and/or diagnosis of COVID-19 infection under section 564(b)(1) of the Act, 21 U.S.C. 360bbb-3(b)(1), unless the authorization is terminated or revoked sooner. [facility] is certified under CLIA-88 as qualified to perform high complexity testing. Testing is performed in the [facility] laboratory located at [address] [place] [address]. SARS-CoV-2/Flu/RSV Multiplex Test: Fact sheet for providers: https://www.fda.gov/media/646427/download Fact sheet for patients: https://www.fda.gov/media/883720/download Performed By: #### C OV19 ####[place] [address] Lab Specimen Source Nasal, Nasopharyngeal Normal [facility] Comment on above: Performed By: #### C OV19 ####[place] [address] CT ABDOMEN AND PELVIS W IV C ONTRASTon 09-28-2022 CT ABDOMEN AND PELVIS W IV CONTRAST Patient Name: CHRIST PALM STUDY: CT ABDOMEN AND PELVIS W IV CONTRAST; 09/28/2022 9:49 am INDICATION: lower abddominal pain . COMPARISON: None. ACCESSION NUMBER(S): [id number] ORDERING CLINICIAN: FATEMEH KRAUS TECHNIQUE: Contiguous axial CT sections are performed from the lung bases to the lesser trochanters following the uneventful administration of 90 cc of intravenous Omnipaque 350. The study is supplemented with coronal and sagittal reformatted images. FINDINGS: The lung bases are clear allowing for some respiratory motion. The osseous structures are intact. The liver, gallbladder, spleen, pancreas, adrenal glands, and kidneys are of normal CT appearance. There is no hydronephrosis or hydroureter. There is no obstructing ureteral calculus. The abdominal aorta is of normal uniform caliber. There is no periaortic mass or fluid collection. There is stool throughout the colon. The appendix is fluid-filled and demonstrates mild wall enhancement. The appendix measures 5-6 mm in diameter. There is faint ill-defined density in the surrounding fat. There is no free air free fluid collection in the abdomen or pelvis. There is no herniated bowel. The urinary bladder is not opacified though is partially distended and otherwise unremarkable. There is no bladder calculus. The pelvic viscera are within normal limits. The surrounding soft tissues are unremarkable. IMPRESSION: Fluid-filled appendix with mild wall enhancement though no appendiceal dilatation or obvious wall thickening. There may be subtle periappendiceal infiltration. Early changes of appendicitis can not be excluded should be correlated with localizing right lower quadrant pain. The remainder of the abdomen and pelvis is unremarkable. Electronically signed by: ZEHRA VELASQUEZ MD [facility] CT Abdomen and Pelvis W cont rast Giuseppe 09-28-2022 Fluid-filled appendi x with mild wall enhancement though no appendiceal dilatation or obvious wall thickening. There may be subtle periappendiceal infiltration. Early changes of appendicitis can not be excluded should be correlated with localizing right lower quadrant pain. The remainder of the abdomen and pelvis is unremarkable. [facility] Interpreted By: ZEHRA VELASQUEZ MD Patient Name: CHRIST PALM STUDY: CT ABDOMEN AND PELVIS W IV CONTRAST; 09/28/2022 9:49 am INDICATION: lower abddominal pain . COMPARISON: None. ACCESSION NUMBER(S): [id number] ORDERING CLINICIAN: FATEMEH KRAUS TECHNIQUE: Contiguous axial CT sections are performed from the lung bases to the lesser trochanters following the uneventful administration of 90 cc of intravenous Omnipaque 350. The study is supplemented with coronal and sagittal reformatted images. FINDINGS: The lung bases are clear allowing for some respiratory motion. The osseous structures are intact. The liver, gallbladder, spleen, pancreas, adrenal glands, and kidneys are of normal CT appearance. There is no hydronephrosis or hydroureter. There is no obstructing ureteral calculus. The abdominal aorta is of normal uniform caliber. There is no periaortic mass or fluid collection. There is stool throughout the colon. The appendix is fluid-filled and demonstrates mild wall enhancement. The appendix measures 5-6 mm in diameter. There is faint ill-defined density in the surrounding fat. There is no free air free fluid collection in the abdomen or pelvis. There is no herniated bowel. The urinary bladder is not opacified though is partially distended and otherwise unremarkable. There is no bladder calculus. The pelvic viscera are within normal limits. The surrounding soft tissues are unremarkable. [facility] Narciso Velasquez MD - 09/28/2022 Interpreted By: ZEHRA VELASQUEZ MD Patient Name: CHRIST PALM STUDY: CT ABDOMEN AND PELVIS W IV CONTRAST; 09/28/2022 9:49 am INDICATION: lower abddominal pain . COMPARISON: None. ACCESSION NUMBER(S): [id number] ORDERING CLINICIAN: FATEMEH KRAUS TECHNIQUE: Contiguous axial CT sections are performed from the lung bases to the lesser trochanters following the uneventful administration of 90 cc of intravenous Omnipaque 350. The study is supplemented with coronal and sagittal reformatted images. FINDINGS: The lung bases are clear allowing for some respiratory motion. The osseous structures are intact. The liver, gallbladder, spleen, pancreas, adrenal glands, and kidneys are of normal CT appearance. There is no hydronephrosis or hydroureter. There is no obstructing ureteral calculus. The abdominal aorta is of normal uniform caliber. There is no periaortic mass or fluid collection. There is stool throughout the colon. The appendix is fluid-filled and demonstrates mild wall enhancement. The appendix measures 5-6 mm in diameter. There is faint ill-defined density in the surrounding fat. There is no free air free fluid collection in the abdomen or pelvis. There is no herniated bowel. The urinary bladder is not opacified though is partially distended and otherwise unremarkable. There is no bladder calculus. The pelvic viscera are within normal limits. The surrounding soft tissues are unremarkable. IMPRESSION: Fluid-filled appendix with mild wall enhancement though no appendiceal dilatation or obvious wall thickening. There may be subtle periappendiceal infiltration. Early changes of appendicitis can not be excluded should be correlated with localizing right lower quadrant pain. The remainder of the abdomen and pelvis is unremarkable. [facility] Work Phone: Radiology Study observation (narrative) [facility] Work Phone: CT Abdomen and Pelvis W cont rast IVOrdered By: Zehra Velasquez on 09-28-2022 [facility] Work Phone: Comprehensive metabolic 2000 panelon 09-28-2022 Albumin BCP dye [Mass/Vol] 4.4 g/dL 3.4 - 5.0 g/dL [facility] ALP [Catalytic activity/Vol] 47 U/L 33 - 110 U/L [facility] ALT With P-5'-P [Catalytic activity/Vol] 21 U/L 7 - 45 U/L [facility] Comment on above: Patients treated wit h Sulfasalazine may generate falsely decreased results for ALT. Anion gap [Moles/Vol] 12 mmol/L 10 - 20 mmol/L [facility] AST With P-5'-P [Catalytic activity/Vol] 28 U/L 9 - 39 U/L [facility] Bilirubin [Mass/Vol] 1.6 mg/dL High 0.0 - 1.2 mg/dL [facility] Calcium [Mass/Vol] 9.4 mg/dL 8.6 - 10. 3 mg/dL [facility] Chloride [Moles/Vol] 104 mmol/L 98 - 107 mmol/L [facility] CO2 [Moles/Vol] 24 mmol/L 21 - 32 mmol/L [facility] Creatinine [Mass/Vol] 0.89 mg/dL 0.50 - 1.05 mg/dL [facility] GFR Female >90 - PINF [facility] Comment on above: CALCULATIONS OF NAV MATED GFR ARE PERFORMED USING THE 2020 CKD-EPI STUDY REFIT EQUATION WITHOUT THE RACE VARIABLE FOR THE IDMS-TRACEABLE CREATININE METHODS. https://jasn.asnjournals.org/content/early//ASN.03998803 88 Glucose [Mass/Vol] 108 mg/dL High 74 - 99 mg/dL [facility] Interpretation and review of laboratory results Abnormal [facility] Potassium [Moles/Vol] 3.7 mmol/L 3.5 - 5.3 mmol/L [facility] Protein [Mass/Vol] 6.9 g/dL 6.4 - 8.2 g/dL [facility] Sodium [Moles/Vol] 136 mmol/L 136 - 145 mmol/L [facility] Urea nitrogen [Mass/Vol] 8 mg/dL 6 - 23 mg/dL [facility] Covid 19 Resultson 3 SARS-CoV-2 (COVID-19) RNA CHERYL+probe Ql (Unsp spec) NEGATIVE COVID-19 Test Coronaviruses are common world-wide and are the cause of many common colds. SARS-COV2 is a new coronavirus that began circulating worldwide in 2019 so we are calling it COVID-19. It has been estimated that four out of five patients with COVID-19 will recover at home without the need for medical attention. Symptoms of COVID-19 may include cough, fever, shortness of breath, loss of taste or smell and other flu-like symptoms including chills, sore muscles, sore throat, and headache. Severe illness is more common in older people and people with other health problems such as high blood pressure, obesity, and immune system problems. If the test is positive, you have COVID-19. You will be contacted by the ordering physicians office and instructed to remain on home isolation, in accordance with CDC guidelines. You may also be contacted by the [facility] to see if any of your close contacts may have been exposed to the virus and need to quarantine. If the test is negative, you likely do not have COVID-19 at this time, but you still may have a different illness that can spread to other people (like Influenza, or the Flu) and could still be at risk for getting COVID-19. We recommend that you stay away from other people to limit the spread of illness until your symptoms are improving and you are fever-free for 24 hours without the use of fever lowering medications such as acetaminophen or ibuprofen. No test is 100% accurate so if you are still concerned you may have COVID-19, talk to your doctor about the need to continue to stay away from others. Medicines Unless your provider told you not to use the following: Acetaminophen (Tylenol and others) is generally safe. Anti-inflammatory medications, such as Ibuprofen (Advil or Motrin) or Naproxen (Aleve) can also be used. Qpvm-sdt-hjtppze cough and cold medicines can be used according to the instructions on the package. Some pvrx-ueg-yqbefyr medicines also contain acetaminophen. Make sure you are not taking more than your recommended dose. For those not hospitalized, there is no specific treatment available for this illness. Antibiotics do not treat Coronaviruses. Follow-Up Follow up with your doctor by scheduling a virtual visit or consider follow-up at one of our urgent care fever clinics. If you are having difficulty breathing, or are very weak and having difficulty standing, this is a medical emergency. Call 911 or have someone take you to the nearest emergency room immediately. If possible, wear a facemask. Additional guidance from the CDC for patients who tested POSITIVE for COVID-19 How to isolate: Isolate yourself in a specific room at home and limit your contact with others. Use a separate bathroom from other members of the household, when possible. Leave home only to get essential medical care. Do not go to work, school or public areas. Avoid using public transportation, ride-sharing, or taxis. Restrict contact with pets and other animals. If you must care for your pet or be around animals while you are sick, wash your hands before and after your interaction and wear a facemask. Make sure that shared spaces in the home have good airflow, such as by an air conditioner or an opened window, weather permitting. Personal Hygiene Procedures: Wear a face mask when in the same room as other people or pets. If a face mask interferes with your breathing, others should wear a mask when sharing space with you. Frequent hand-washing: wash your hands with soap and water for at least 20 seconds. If soap and water are not available, use alcohol-based hand sterile processing manager. Avoid touching your eyes, nose, and mouth with unwashed hands. Household Hygiene Procedures: Avoid sharing personal household items such as dishes, glassware, cups, eating utensils, towels or bedding with other people or pets in your home. After use, these items should be washed with soap and hot water. Disinfect all high-touch surfaces every day with antibacterial cleaning solutions such as Lysol wipes, bleach, cleansers, etc. High-touch surfaces include tabletops, doorknobs, bathroom fixtures, toilets, phones, keyboards, tablets and bedside tables. Immediately clean any surfaces that may have blood, poop or body fluids on them, using antibacterial cleaning solutions such as Lysol wipes, bleach, cleansers, etc. If clothing or bedding come into contact with blood, poop or body fluids, they should be washed immediately. Follow the directions on the laundry detergent and clothing labels but hot water is recommended when possible. Stopping home isolation precautions: If possible, consult your doctor before stopping home isolation precautions. According to the CDC, you can discontinue home isolation precautions when you have met both of these criteria: Your fever and respiratory symptoms have been gone for 24 apple (more content not included)... Normal [facility] HCG,BETA-QUANTITATIVEon 09-14 HCG,BETA-QUANTITATI VE <2 Normal [facility] Comment on above: Result Comment: . Total HCG measurement is performed using the Dylan Hannah Access Immunoassay which detects intact HCG and free beta HCG subunit. . This test is not indicated for use as a tumor marker. HCG testing is performed using a different test methodology at [facility] than [facility]. Direct result comparison should only be made within the same method. REF VALUES NON FEMALE <5 MALES <5 Performed By: #### H CGQU ####[facility] [place] [address] HCG.beta subunit Qnon 2022 HCG Qn m[IU]/mL mIU/mL [facility] Comment on above: . Total HCG measurement is performed using the Dylan Hannah Access Immunoassay which detects intact HCG and free beta HCG subunit. . This test is not indicated for use as a tumor marker. HCG testing is performed using a different test methodology at [facility] than [facility]. Direct result comparison should only be made within the same method. REF VALUES NON FEMALE <5 MALES <5 [facility] LIPASEon 09-28-2022 Lipase [Catalytic activity/Vol] 16 U/L Normal 9 - 82 [facility] Comment on above: Result Comment: Felisha puncture immediately after or during the administration of Metamizole may lead to falsely low results. Testing should be performed immediately prior to Metamizole dosing. U-wquqvr-y-benzoquinone imine (metabolite of Acetaminophen) will generate erroneously low results in samples for patients that have taken toxic doses of acetaminophen. Performed By: #### L IPAS #### [facility] [address] [place] [address] Lipaseon 09-28-2022 Lipase [Catalytic activity/Vol] 16 U/L 9 - 82 U/L [facility] Comment on above: Venipuncture immedia tely after or during the administration of Metamizole may lead to falsely low results. Testing should be performed immediately prior to Metamizole dosing. O-oqzozh-b-benzoquinone imine (metabolite of Acetaminophen) will generate erroneously low results in samples for patients that have taken toxic doses of acetaminophen. No Panel Informationon 09-28 [facility] Order Reconciliationon 09-28 Order Reconciliation Page 1 Discharge Reconciliation Document Reconciliation Type: Discharge requested on behalf of Frank Goff (Physician) done by Frank Goff) Discharge - Reconciliation: 28-Sep-2022 17:39 by: Frank Goff) Home Medications EnteredHOME MEDICATIONS AT DISCHARGE DateReconciliation Comment/ Additional Information B Complex 50 oral tablet, extended release 1 tab(s) orally once a day 28-Sep-2022 10:57 B Complex 50 oral tablet, extended release 1 tab(s) orally once a day 28-Sep-2022 10:57 B Complex 50 oral tablet, extended release is continued as B Complex 50 oral tablet, extended release buPROPion 150 mg/12 hours (SR) oral tablet, extended release 1 tab(s) orally 2 times a day 28-Sep-2022 10:59 buPROPion 150 mg/12 hours (SR) oral tablet, extended release 1 tab(s) orally 2 times a day 28-Sep-2022 10:59 buPROPion 150 mg/12 hours (SR) oral tablet, extended release is continued as buPROPion 150 mg/12 hours (SR) oral tablet, extended release busPIRone 5 mg oral tablet 1 tab every am and 2 tabs at bedtime 28-Sep-2022 10:42 busPIRone 5 mg oral tablet 1 tab every am and 2 tabs at bedtime 28-Sep-2022 10:42 busPIRone 5 mg oral tablet is continued as busPIRone 5 mg oral tablet cyanocobalamin 2 mcg/mL intramuscular solution 1 milliliter(s) intramuscular every week 28-Sep-2022 10:58 cyanocobalamin 2 mcg/mL intramuscular solution 1 milliliter(s) intramuscular every week 28-Sep-2022 10:58 cyanocobalamin 2 mcg/mL intramuscular solution is continued as cyanocobalamin 2 mcg/mL intramuscular solution glycopyrrolate 2 mg oral tablet 2 tab(s) orally once a day 28-Sep-2022 11:01 glycopyrrolate 2 mg oral tablet 2 tab(s) orally once a day 28-Sep-2022 11:01 glycopyrrolate 2 mg oral tablet is continued as glycopyrrolate 2 mg oral tablet hydrOXYzine hydrochloride 10 mg oral tablet 1-2 tab(s) orally 2 times a day 28-Sep-2022 10:59 hydrOXYzine hydrochloride 10 mg oral tablet 1-2 tab(s) orally 2 times a day 28-Sep-2022 10:59 hydrOXYzine hydrochloride 10 mg oral tablet is continued as hydrOXYzine hydrochloride 10 mg oral tablet Hal FE 1.5/30 oral tablet 1 tab(s) orally once a day 28-Sep-2022 11:00 Hal FE 1.5/30 oral tablet 1 tab(s) orally once a day 28-Sep-2022 11:00 Hal FE 1.5/30 oral tablet is continued as Hal FE 1.5/30 oral tablet Vitamin C 500 mg oral tablet 1 tab(s) orally once a day 28-Sep-2022 11:00 Vitamin C 500 mg oral tablet 1 tab(s) orally once a day 28-Sep-2022 11:00 Vitamin C 500 mg oral tablet is continued as Vitamin C 500 mg oral tablet Vitamin D2 50 mcg (2000 intl units) oral capsule 1 cap(s) orally once a day 28-Sep-2022 10:58 Vitamin D2 50 mcg (2000 intl units) oral capsule 1 cap(s) orally once a day 28-Sep-2022 10:58 Vitamin D2 50 mcg (2000 intl units) oral capsule is continued as Vitamin D2 50 mcg (2000 intl units) oral capsule Current OrdersDateHOME MEDICATIONS AT DISCHARGE DateReconciliation Comment/ Additional Information Acetaminophen Tablet (TYLENOL)DOSE = 975 mg Oral Once 28-Sep-2022 15:59 Acetaminophen is not required dexAMETHasone Injectable (DECADRON)DOSE = 8 mg IntraVenous Push Once 28-Sep-2022 15:59 dexAMETHasone Injectable is not required Famotidine Injectable (PEPCID)DOSE = 20 mg IntraVenous Push Once 28-Sep-2022 15:59 Famotidine Injectable is not required HYDROmorphone Injectable (DILAUDID)DOSE = 0.25 mg IntraVenous Push Every 5 Minutes, PRN Pain - Mod (4-6) (PACU)Clinician Notes: Mary-operative order ONLYMax total of 4 mg regardless of dose. 28-Sep-2022 16:00 HYDROmorphone Injectable is not required HYDROmorphone Injectable (DILAUDID)DOSE = 0.5 mg IntraVenous Push Every 5 Minutes, PRN Pain - Severe (7-10) (PACU)Clinician Notes: Mary-operative order ONLYMax total of 4 mg regardless of dose. 28-Sep-2022 16:00 HYDROmorphone Injectable is not required Lactated Ringers Infusion IV Bag Volume = 1,000 mL Run at: 100 mL/hr IntraVenous Clinician Notes: Mary-operative order ONLY 28-Sep-2022 16:00 Lactated Ringers Infusion is not required Lactated Ringers Infusion IV Bag Volume = 1,000 mL Run at: 100 mL/hr IntraVenous 28-Sep-2022 15:59 Lactated Ringers Infusion is not required Midazolam Injectable (VERSED)DOSE = 2 mg IntraVenous Push Once 28-Sep-2022 15:59 Midazolam Injectable is not required Naloxone Injectable (NARCAN)DOSE = 0.2 mg IntraVenous Push Once, PRN If patient RR below 10, obtunded or unarousableClinician Notes: DO NOT ADMINISTER UNTIL PHYSiCIAN HAS BEEN NOTIFIED AND ASSESSED PATIENT 28-Sep-2022 16:00 Naloxone Injectable is not required Ondansetron Injectable (ZOFRAN)DOSE = 4 mg IntraVenous Push Once 28-Sep-2022 15:59 Ondansetron Injectable is not required oxyCODONE Immediate Release Tablet (OXYIR, ROXICODONE)DOSE = 5 mg Oral Every 4 Hours, PRN Pain - Mild (1-3) (PACU) when able to take OralClinician Notes: Mary-operative order ONLY 28-Sep-2022 16:00 oxyCODONE Immediate Release is not required oxyCOD (more content not included)... Normal [facility] Preop Checkliston 09-28-2022 Preop Checklist Preop Checklist: Preop Checklist: Arrival [id number] Arrival Time15:07 Procedure Typelap appy Temperature C36.7 degrees C Temperature F98 degrees F Heart Rate72 beats per minute Respiratory Rate12 breath per minute Blood Pressure [id number] mm/Hg Blood Pressure Oqjdsckym62 mm/Hg COVID 19 Results in Last 7 daysneg NPOyes Last Food [id number] 20:00 Last Clear Fluid [id number] 07:30 ID Band On Patientpatient ID (name) Consent Signedyes H&P Completeyes Anesthesia Assessment Completedyes EKG Performednot ordered Chest X-Ray Performednot ordered Preop Antibioticsnot ordered given in ER Type and Screen Resultedn/a HCG Urine TestComplete Chlorhexadine Bath Givennot applicable Nasal Antiseptic Appliednot applicable Soap and Water Bath the Night Before Surgerynot applicable Hair Washed with Shampoonot applicable Hat placed on prior to transportnot applicable SCD's Appliedyes SHARONDA Hose Appliednot ordered Denturesnot applicable Prostheticsnot applicable Hearing Aidsnot applicable Valuables Securedplaced in locker Glasses / Contactsplaced in locker Bowel Prepno Cardiovascular Assessment: Apicalregular Extremitieswarm Respiratory Assessment: Respirationsunlabored Air Exchangeequal Breath Soundsclear Neurological Assessment: Level of Consciousnessalert Mobilitymoves all extremities Able to Express Selfyes Age Appropriateyes Emotional Statuscalm Skin Assessment: Skin Site(s) with Current Compromisenone Preop Education: Surgical Site Infection Preventionyes Pain Scales and Managementyes Language / Communication: Language / CommunicationEnglish Electronic Signatures: Angelika Dutton) (Signed 28-Sep-2022 15:30) Authored: Preop Checklist Last Updated: 28-Sep-2022 15:30 by Angelika Dutton (ELIZABETH) [facility] Provider Note - ED v3on 09-14 Provider Note - ED v3 Provider Note: Chart Review: ED NOTES ED NOTES: HPI: Patient is a 22-year-old female with no past medical history presenting to the emergency department with lower abdominal pain onset 2 hours prior to arrival. Patient states that she developed an sharp pain in her lower abdomen which awoke her from sleep at 5 AM. She denies any nausea, vomiting, diarrhea, constipation, dysuria. She states the pain does not lateralize or radiate. Patient denies any history of abdominal surgeries. She states her last menstrual period was 1 week ago. Patient denies any other complaints at this time. Limitations to history: none identified Independent Historians: patient External Records Reviewed: EMR -------- ROS: a ten point review of systems was performed and was negative except as per HPI. -------- PMH / PSH: as per HPI, otherwise reviewed in EMR and significant for: denies MEDS: as per HPI, otherwise reviewed in EMR and significant for: oral contraceptives ALLERGIES: as per HPI, otherwise reviewed in EMR and significant for: NKDA SocH: as per HPI, otherwise reviewed in EMR and significant for: denies EtOH or drug use FH: as per HPI, otherwise reviewed in EMR and significant for: non contributory -------- Physical Exam: VS: As documented in the triage note and EMR flowsheet from this visit was reviewed General: Well appearing. No acute distress. Eyes: Extraocular movements grossly intact. No scleral icterus. HEENT: Atraumatic. Normocephalic. Neck: No meningismus. No gross masses CV: Regular rhythm. No murmurs, rubs, gallops appreciated. Resp: Clear to auscultation bilaterally. No respiratory distress. GI: Soft, no masses. MSK: Symmetric muscle bulk. No gross step offs or deformities. Skin: Warm, dry, intact. Neuro: Speech fluent. Alert. Psych: Appropriate mood and affect for situation HISTORY OF PRESENTING ILLNESS CHRIST is a 22 year old Female and was seen by me at 28-Sep-2022 07:56 for a chief complaint of abdominal pain (Lower abdominal pain began this morning around 0500. Radiating into lower back. Denies N/V/D. Small BM this morning. Pain 01/23)(1). Triage Information: Most recent Vital Sign Value Date Temp (F): 97.4 09-28-2022 07:55 Temp (C): 36.3 09-28-2022 07:55 Heart Rate (beats/min): 119 09-28-2022 07:55 Respirations (breaths/min): 18 09-28-2022 07:55 SpO2 (%): 98 09-28-2022 07:55 BP Systolic (mm Hg): 130 09-28-2022 07:55 BP Diastolic (mm Hg): 86 09-28-2022 07:55 PAST MEDICAL HISTORY ALLERGIES/INTOLERANCES: No Known Allergies HEALTH HISTORY: No documented data. OUTPATIENT MEDICATIONS: Home Medications Review Status for Reconciliation: Complete Med Status: Patient Currently Takes Medications Drug Name: busPIRone 5 mg oral tablet Instructions: 1 tab every am and 2 tabs at bedtime Drug Name: B Complex 50 oral tablet, extended release Instructions: 1 tab(s) orally once a day Drug Name: Vitamin D2 50 mcg (2000 intl units) oral capsule Instructions: 1 cap(s) orally once a day Drug Name: cyanocobalamin 2 mcg/mL intramuscular solution Instructions: 1 milliliter(s) intramuscular every week Drug Name: hydrOXYzine hydrochloride 10 mg oral tablet Instructions: 1-2 tab(s) orally 2 times a day Drug Name: buPROPion 150 mg/12 hours (SR) oral tablet, extended release Instructions: 1 tab(s) orally 2 times a day Drug Name: Hal FE 1.5/30 oral tablet Instructions: 1 tab(s) orally once a day Drug Name: Vitamin C 500 mg oral tablet Instructions: 1 tab(s) orally once a day Drug Name: glycopyrrolate 2 mg oral tablet Instructions: 2 tab(s) orally once a day SIGNIFICANT EVENTS: No documented data. CRITICAL CARE RESULTS: Recent Lab Results: I have reviewed these laboratory results: Complete Blood Count + Differential 28-Sep-2022 08:34:00 ResultValue White Blood Cell Count 10.7 Red Blood Cell Count 4.51 HGB 13.7 HCT 40.7 MCV 90 MCHC 33.7 PLT 257 RDW-CV 12.1 Neutrophil % 85.3 Immature Granulocytes % 0.2 Lymphocyte % 9.8 Monocyte % 4.0 Eosinophil % 0.2 Basophil % 0.5 Neutrophil Count 9.17 H Lymphocyte Count 1.05 L Monocyte Count 0.43 Eosinophil Count 0.02 Basophil Count 0.05 Comprehensive Metabolic Panel 28-Sep-2022 08:34:00 ResultValue Glucose, Serum 108 H NA 136 K 3.7 CL 104 Bicarbonate, Serum 24 Anion Gap, Serum 12 BUN 8 CREAT 0.89 GFR Female >90 Calcium, Serum 9.4 ALB 4.4 ALKP 47 T Pro 6.9 T Bili 1.6 H Alanine Aminotransferase, Serum 21 Aspartate Transami (more content not included)... Normal [facility] Risk Screen - Adult Emergenc n 09-28-2022 Risk Screen - Adult Emergency Preferred Language: Preferred Language: Preferred Language for Discussing Health Care (patient/designee)Gabrielle arriaga Patient Preferred Pharmacy: Patient Preferred Pharmacy Statement: I have reviewed and updated the patient's preferred pharmacy selection for today's visit. Advanced Directives: Advance Directive/DNRno Family Violence Adult: Abuse Screen: Are you or have you been threatened or abused physically, emotionally, or sexually by anyoneno Learning Assessment (Patient): Learning Assessment (Patient): Patient is Able to be Assessed for Learningyes Factors Influencing Readiness to Learnacuteness of illness Factors that Impact Ability to Learnnone Devices/Methods Used to Communicatenone Learning Preferencesaudio Cultural Considerationsnone Developmental Considerationsnone Anglican Considerationsnone Learning Assessment (Other Learner): Learning Assessment (Other Learner): Other learner availableno Pressure Injury/TB/Substance: Pressure Injury: Do you have a coughno Smoking Statusmoderate user (uses 11-30 cig/day, OR 0.5-1.5 ppd, OR 2-3 cans/pouches loose leaf tobacco per week, OR 0.5-1.5 vape pods per day) Tobacco Cessation Education (provide if tobacco use within the last 12 mos) patient declined Alcohol Usedenies Drug Usedenies Admission Risk Screen: Significant IndicatorsComplete CAGE: CAGE: Is this an injured patient at a Trauma Center ([facility]/[place] /[place]): no Electronic Signatures: Asia Frankel (RN) (Signed 28-Sep-2022 13:23) Authored: Preferred Language, Patient Preferred Pharmacy, Advanced Directives, Family Violence Adult, Learning Assessment (Patient), Learning Assessment (Other Learner), Pressure Injury/TB/Substance, Pressure Injury, CAGE Last Updated: 28-Sep-2022 13:23 by Asia Frankel (RN) [facility] SARS-CoV-2 (COVID-19) RNA NA A+probe Ql (Resp)on 09-28-2022 SARS-related CoV RNA CHERYL+probe Ql (Resp) Not detected Not Detected [facility] Comment on above: . This test has received [facility] Emergency Use Authorization (EUA) and has been verified by [facility]. This test is only authorized for the duration of time that circumstances exist to justify the authorization of the emergency use of in vitro diagnostic tests for the detection of SARS-CoV-2 virus and/or diagnosis of COVID-19 infection under section 564(b)(1) of the Act, 21 U.S.C. 360bbb-3(b)(1), unless the authorization is terminated or revoked sooner. [facility] is certified under CLIA-88 as qualified to perform high complexity testing. Testing is performed in the [facility] laboratory located at [address] [place] [address]. SARS-CoV-2/Flu/RSV Multiplex Test: Fact sheet for providers: https://www.fda.gov/media/600546/download Fact sheet for patients: https://www.fda.gov/media/869448/download [facility] Triage - EDon 09-28-2022 Triage - ED Quick Triage: Are You no Have You Given In The Last 6 Weeksno Are You Currently Breastfeedingno Chart Review: ARRIVAL INFORMATION Mode of Arrival: private vehicle CHIEF COMPLAINT CHRIST PALM is a Female patient with a chief complaint of abdominal pain (Lower abdominal pain began this morning around 0500. Radiating into lower back. Denies N/V/D. Small BM this morning. Pain 01/23). Onset of the Complaint: 28-Sep-2022 04:56 Triage Date/Time: 28-Sep-2022 07:55 RON: 3 Pain Rating (0-10): 7 = Severe Vital Signs: Temperature: 97.4F ( 36.3C) taken temporal Blood Pressure: 130/86 Mean: Heart Rate: 119 Respiratory Rate: 18 Pulse Oximetry: 98% on room air, no respiratory support. Height: 5 feet 1.00 inches. 154.9 CM Weight: 150.3 pounds. Calculated 68.2 kg. (stated) Calculated BMI (kg/m2): 28.423 Calculated BSA (m2) 1.71 [place] Coma Scale: Best Eye Response: (E4) spontaneous Best Motor Response: (M6) obeys commands Best Verbal Response: (V5) oriented Ellie Score: 15 Cough lasting greater than 3 weeks: no Allergies: no Patient has homicidal thoughts: no Symptoms Are Negative For: anorexia, constipation, diaphoresis, diarrhea, distention, fever, nausea, rectal blood and vomiting. Risk Screens Suicide Risk Screen In the Past Month: Have you wished you were or wished you could go to sleep and not wake up no In the Past Month: Have you had any actual thoughts of killing yourself no In Your Lifetime: Have you ever done anything, started to do anything, or prepared to do anything to end your life no Esquivel Fall Scale Screening Has the patient fallen before (or is the patient in the ED as a result of a fall) has not had a fall Does the patient have an impaired gait does not have impaired gait Is the patient cognitively impaired not cognitively impaired Interventions: Sierra Fall Interventions: LOW INTERVENTIONS: *patient oriented to surroundings and call system, * patient/family falls education completed and documented, *patients fall status communicated during bedside handoff, *whiteboard updated, *mode of toileting discussed with patient, *bed in low position with brakes locked, *call light in reach, * non-skid footwear TRAVEL HISTORY Travel History Coronavirus Screening: no exposure or symptoms Travel Exposure History: NO travel to International locations in the past 30 days PAIN Pain Scale Used: AURELIANO Pain Rating (0-10): 7 = Severe Past Medical History: Past Medical History Reviewedyes Electronic Signatures: Inocencio Kovacs (EMT-P) (Signed 28-Sep-2022 07:58) Entered: Risk Screens, Pain, Travel History, Chart Review, Scores, Past Medical History Authored: Quick Triage, Risk Screens, Pain, Travel History, Chart Review, Scores, Past Medical History Asia Frankel (RN) (Signed 28-Sep-2022 13:23) Authored: Quick Triage, Chart Review Last Updated: 28-Sep-2022 13:23 by Asia Frankel (RN) [facility] Surgical Pathology Department Name CHRIST PALM Pathologist: ROCKY SKY MD Date of Procedure: 09/28/2022 Date Received: 09/29/2022 Date Reported 10/17/2022 Submitting Physician: FRANK GOFF MD Location: [facility] Other External # FINAL DIAGNOSIS A. APPENDIX: -- APPENDIX WITH NO PATHOLOGIC DIAGNOSIS Electronically Signed Out By ROCKY SKY MD/[facility] By the signature on this report, the individual or group listed as making the Final Interpretation/Diagnosis certifies that they have reviewed this case. Diagnostic interpretation performed at [facility] [address] [id number] Clinical History: Physician Contact Number: [phone] Fixative (A): Formalin Clinical Diagnosis History CHRIST PALM is a 22 year old Female who presents to the emergency department with lower abdominal pain. Pain is located in the suprapubic region and right lower quadrant. It woke her from sleep early this morning. She tried to make herself vomit but was unable to. She denies any nausea. She does not have much of an appetite. Pain has persisted throughout the day. She denies ever having similar pain in the past. It is a little worse with movement. She has no known medical issues and has no previous abdominal surgery. She has no family history of inflammatory bowel disease or colon or rectal cancer. She normally has bowel movements every other day. She had a bowel movement this morning. In the emergency department, WBC is 10.7 with a slight neutrophil shift. CT scan of the abdomen and pelvis showed a fluid-filled appendix with mild wall enhancement and subtle periappendiceal inflammatory changes. K37 Appendicitis Specimens Submitted As: A: APPENDIX Gross Description: Received in formalin, labeled with the patient?s name and hospital number and appendix , is an appendix, 8.3 x 0.7 x 0.7 cm. The mesoappendix measures 7.8 cm in length. The serosal surface is pink-pastrana, with focal pastrana-yellow fibrinous exudate. Cross sections reveal a dilated lumen measuring up to 0.5 cm. Purulent material is present. Lining Scrubber sections are submitted in 2 cassettes. [facility] Summary of Cassettes: Specimen Label Site A 1 perpendicular distal tip, proximal margin 2 technical sales representative sections of body [facility]/10/12/2022 [facility] Department of Pathology [address] [place] [address] Normal [facility] Comment on above: Performed By: #### U HCS #### [facility] Surgical Pathology Department [address] [place], [place] [id number] URINALYSIS WITH CULTURE IF I NDICATEDon 09-28-2022 Appearance (U) HAZY Normal CLEAR [facility] Comment on above: Performed By: #### U ARFX #### [address] [address] Bilirubin Ql (U) Negative Normal NEGATIVE [facility] Comment on above: Performed By: #### U ARFX #### [address] [address] Color (U) Penelope Normal STRAW,YELLOW [facility] Comment on above: Performed By: #### U ARFX #### [address] [address] Glucose Ql (U) Negative Normal NEGATIVE [facility] Comment on above: Performed By: #### U ARFX #### [address] [address] Hemoglobin Ql (U) Negative Normal NEGATIVE [facility] Comment on above: Performed By: #### U ARFX #### [address] [address] Ketones Ql (U) 20(1+) Abnormal NEGATIVE [facility] Comment on above: Performed By: #### U ARFX #### [place] [id number] Leukocyte esterase Test strip Ql (U) Negative Normal NEGATIVE [facility] Comment on above: Performed By: #### U ARFX #### [address] [address] Nitrite Ql (U) Negative Normal NEGATIVE [facility] Comment on above: Performed By: #### U ARFX #### [place] [address] pH (U) 8.0 [pH] Normal 5.0 - 8.0 [facility] Comment on above: Performed By: #### U ARFX #### [place] [address] Protein Ql (U) Negative Normal NEGATIVE [facility] Comment on above: Performed By: #### U ARFX #### [place] [address] Specific gravity (U) [Rel density] 1.018 Normal 1.005 - 1.035 [facility] Comment on above: Performed By: #### U ARFX #### [place] [id number] Urobilinogen (U) [Mass/Vol] 4.0 mg/dL High 0.0 - 1.9 [facility] Comment on above: Result Comment: SOME PIGMENTS AND MEDICATIONS MAY CAUSE A FALSE POSITIVE UROBILINOGEN Performed By: #### U ARFX #### [place] [id number] Urinalysis complete W Reflex Culture panel (U)on 09-28-2022 Appearance (U) HAZY CLEAR [facility] Bilirubin (U) [Mass/Vol] Negative NEGATIVE [facility] Color (U) Penelope STRAW,YELLOW [facility] Glucose Auto test strip (U) [Mass/Vol] Negative NEGATIVE mg/dL [facility] Interpretation and review of laboratory results Abnormal [facility] Ketones (U) [Mass/Vol] 20(1+) Abnormal NEGATIVE mg/dL [facility] Leukocyte esterase Auto test strip Ql (U) Negative NEGATIVE [facility] Nitrite Auto test strip Ql (U) Negative NEGATIVE [facility] pH (U) 8.0 [pH] 5.0 - 8.0 [facility] Protein (U) [Mass/Vol] Negative NEGATIVE mg/dL [facility] RBC (U) [#/Vol] Negative NEGATIVE [facility] Specific gravity (U) [Rel density] 1.018 1.005 - 1.035 [facility] Urobilinogen (U) [Mass/Vol] 4.0 mg/dL High 0.0 - 1.9 mg/dL [facility] Comment on above: SOME PIGMENTS AND ME DICATIONS MAY CAUSE A FALSE POSITIVE UROBILINOGEN [facility] No Panel Informationon 09-14 Not at all - 0 [facility] Work Phone: Several days - 1 [facility] Work Phone: Minimal Anxiety [facility] Work Phone: Not difficult at all [facility] Work Phone: Comment on above: How difficult have t hose problems made it for you to do your work, take care of things at home, or get along with other people? 2 1 [facility] Work Phone: Comment on above: Over the last two we eks, how often have you been bothered by the following problems? Feeling nervous, anxious, or on edge: Several days - 1Not being able to stop or control worrying: Not at all - 0Worrying too much about different things: Not at all - 0Trouble relaxing: Not at all - 0Being so restless that it's hard to sit still: Several days - 1Becoming easily annoyed or irritable: Not at all - 0Feeling afraid as if something awful might happen: Not at all - 0 Office Visit (Family Adin walls)on 09-14-2022 Follow-up visit Diagnoses/Problems Low vitamin B12 level (266.2) (E53.8) Vitamin D insufficiency (268.9) (E55.9) Tachycardia (785.0) (R00.0) Generalized anxiety disorder (300.02) (F41.1) Orders Generalized anxiety disorder Renew: buPROPion HCl ER (SR) 150 MG Oral Tablet Extended Release 12 Hour; Take 1 tablet daily Generalized anxiety disorder, Low blood sugar, Low vitamin B12 level, Tachycardia Follow-up visit in 6 months Outpatient Follow-up Status: Hold For - Scheduling Requested for: 14Sep2022 Low vitamin B12 level Vitamin B12, Serum; Status:Active; Requested for:14Sep2022; Vitamin D insufficiency Vitamin D 25-Hydroxy; Status:Active; Requested for:14Sep2022; Provider Impressions CHRIS: Symptoms well controlled on current treatment, continue on Wellbutrin 150 mg daily and Buspar 5 mg in AM and 10 MG PM. Low vitamin B12: continue on vitamin b complex daily, will repeat lab today Vitamin D deficiency: Continue on Vitamin D3 2000 units daily, will recheck lab today tachycardia: Advised to keep record of episodes, monitor HR and stop energy drink consumption. if episodes are frequent will order 7 day Holter monitor. follow up in 6 months or sooner if needed Chief Complaint 3 month. History of Present Illness Christ is a 22 yo female, here today fro follow up on vitamin deficiency and anxiety. She is taking B complex daily vitamin D 2000 units daily feeling well, denies any anxiety symptoms. 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 Acute concern; has been having episode of elevated HR at rest, she reports HR was at 130's at highest, she does report energy drink and occasional pop consumption. 'Scores and Scales' CHRIS-7 [id number] CHRIS-7 Total Score2 10 5 Feeling nervous, anxious or on edgeSeveral days - 1 Several days - 1 Several days - 1 Not being able to stop or control worryingNot at all - 0 Over half the days - 2 Several days - 1 Worrying too much about different thingsNot at all - 0 Over half the days - 2 Not at all - 0 Trouble relaxingNot at all - 0 Over half the days - 2 Several days - 1 Being so restless that it's hard to sit stillSeveral days - 1 Several days - 1 Not at all - 0 Becoming easily annoyed or irritableNot at all - 0 Over half the days - 2 Over half the days - 2 Feeling afraid as if something awful might happenNot at all - 0 Not at all - 0 Not at all - 0 Review of Systems Constitutional: no chills, no fever and no night sweats. Cardiovascular: fast heart rate, but no chest pain, no intermittent leg claudication, no lower extremity edema, no palpitations and no syncope. Respiratory: no cough, no shortness of breath during exertion, no shortness of breath at rest and no wheezing. Gastrointestinal: no abdominal pain, no blood in stools, no constipation, no diarrhea, no melena, no nausea, no rectal pain and no vomiting. Genitourinary: no dysuria, no change in urinary frequency, no urinary hesitancy, no feelings of urinary urgency and no vaginal discharge. Musculoskeletal: no arthralgias and no myalgias. Neurological: no difficulty walking, no headache, no limb weakness, no numbness and no tingling. Psychiatric: no anxiety, no depression, no anhedonia and no substance use disorders. Endocrine: no hair thinning or loss and no heat/cold intolerance. Active Problems Elevated bilirubin (277.4) (R17) Generalized anxiety disorder (300.02) (F41.1) Hyperhidrosis (705.21) (R61) Low blood sugar (251.2) (E16.2) Low vitamin B12 level (266.2) (E53.8) Premenstrual migraine (346.40) (G43.829) Premenstrual syndrome (625.4) (N94.3) Vitamin D insufficiency (268.9) (E55.9) Surgical History History of Salvo tooth extraction Family History No pertinent family history Family history of hypertension (V17.49) (Z82.49) Family history of diabetes mellitus (V18.0) (Z83.3) Social History Does not have living will No illicit drug use Use of nicotine containing substance in combustion-free vaporization device (305.1) (Z72.0) Allergies No Known Drug Allergies Recorded By: Lauren Norman; 03/17/2022 8:21:26 AM Current Meds Medication NameInstructionReason buPROPion HCl ER (SR) 150 MG Oral Tablet Extended Release 12 HourTake 1 tablet once daily for 2 weeks, then take 1 tablet twice dailyGeneralized anxiety disorder busPIRone HCl - 5 MG Oral TabletTake 1 tablet in AM, and take 2 tablets at bedtimeGeneralized anxiety disorder hydrOXYzine HCl - 10 MG Oral Tabletmay take 1-2 tablets twice daily as needed for stress/anxietyGeneralize d anxiety disorder Glycopyrrolate 2 MG Oral TabletTake 2 tablets by mouth dailyHyperhidrosis Vitamin B Complex Oral TabletTAKE 1 TABLET DAILY.Low vitamin B12 level Vitamin D2 50 MCG (1999 [place]) Oral TabletVitamin D insufficiency Norethindrone Acet-Ethinyl Est 1.5-30 MG-MCG Oral TabletTAKE 1 TABLET DAILY. Ondansetron HCl - 4 MG Oral Tablet Vitamin C TABS Vitals Vital Signs Recorded: 14Sep2022 08:23AM Heart (more content not included)... Normal [employer] VITAMIN B12on 09-14-2022 Cobalamin (Vitamin B12) [Mass/Vol] 176 pg/mL Low 211 - 911 [facility] Comment on above: Performed By: #### V TB12 #### [address] [address] VITAMIN D, 25-HYDROXYon - VITAMIN D, 25-HYDROXY 43 ng/mL Normal [facility] Comment on above: Result Comment: . DEFICIENCY: < 20 NG/ML INSUFFICIENCY: 20-29 NG/ML SUFFICIENCY: 30-100 NG/ML THIS ASSAY ACCURATELY QUANTIFIES THE SUM OF VITAMIN D3, 25-HYDROXY AND VIT D2,25-HYDROXY. Performed By: #### V TDOH #### [address] [address] Vitamin B12, Serumon 023 Cobalamin (Vitamin B12) [Mass/Vol] 176 pg/mL below low threshold 211 - 911 [facility] Work Phone: Vitamin D 25-Hydroxyon 09-14 25-hydroxyvitamin D3 [Mass/Vol] 43 ng/mL [facility] Work Phone: Comment on above: .DEFICIENCY: < 20 NG /MLINSUFFICIENCY: 20-29 NG/MLSUFFICIENCY: 30-100 NG/MLTHIS ASSAY ACCURATELY QUANTIFIES THE SUM OFVITAMIN D3, 25-HYDROXY AND VIT D2,25-HYDROXY. COMPREHENSIVE PANELon 2021 Albumin [Mass/Vol] 4.2 g/dL Normal 3.4 - 5.0 [facility] Comment on above: Performed By: #### C MP #### [address] [address] ALP [Catalytic activity/Vol] 56 U/L Normal 33 - 110 [facility] Comment on above: Performed By: #### C MP #### [address] [address] ALT [Catalytic activity/Vol] 13 U/L Normal 7 - 45 [facility] Comment on above: Result Comment: Saumya ents treated with Sulfasalazine may generate falsely decreased results for ALT. Performed By: #### C MP #### [address] [address] Anion gap [Moles/Vol] 12 mmol/L Normal 10 - 20 [facility] Comment on above: Performed By: #### C MP #### [address] [address] AST [Catalytic activity/Vol] 17 U/L Normal 9 - 39 [facility] Comment on above: Performed By: #### C MP #### [address] [address] Bilirubin [Mass/Vol] 0.5 mg/dL Normal 0.0 - 1.2 [facility] Comment on above: Performed By: #### C MP #### [address] [address] Calcium [Mass/Vol] 9.5 mg/dL Normal 8.6 - 10.3 [facility] Comment on above: Performed By: #### C MP #### [address] [address] Chloride [Moles/Vol] 101 mmol/L Normal 98 - 107 [facility] Comment on above: Performed By: #### C MP #### [address] [address] Creatinine [Mass/Vol] 0.83 mg/dL Normal 0.50 - 1.05 [facility] Comment on above: Performed By: #### C MP #### [address] [address] eGFR FEMALE >90 Normal >90 [facility] Comment on above: Result Comment: CALC ULATIONS OF ESTIMATED GFR ARE PERFORMED USING THE 2020 CKD-EPI STUDY REFIT EQUATION WITHOUT THE RACE VARIABLE FOR THE IDMS-TRACEABLE CREATININE METHODS. https://jasn.asnjournals.org/content//ASN.24152996 88 Performed By: #### C MP #### [address] [address] Glucose [Mass/Vol] 89 mg/dL Normal 74 - 99 [facility] Comment on above: Performed By: #### C MP #### [address] [address] HCO3 (Bld) [Moles/Vol] 27 mmol/L Normal 21 - 32 [facility] Comment on above: Performed By: #### C MP #### [address] [address] Potassium [Moles/Vol] 3.7 mmol/L Normal 3.5 - 5.3 [facility] Comment on above: Performed By: #### C MP #### [address] [address] Protein [Mass/Vol] 7.4 g/dL Normal 6.4 - 8.2 [facility] Comment on above: Performed By: #### C MP #### [address] [address] Sodium [Moles/Vol] 136 mmol/L Normal 136 - 145 [facility] Comment on above: Performed By: #### C MP #### [address] [address] Urea nitrogen [Mass/Vol] 8 mg/dL Normal 6 - 23 [facility] Comment on above: Performed By: #### C MP #### [address] [address] Laboratory - Chemistry and C hemistry - challengeon 06-16-2022 Albumin BCP dye [Mass/Vol] 4.2 g/dL 3.4 - 5.0 [facility] Work Phone: ALP [Catalytic activity/Vol] 56 U/L 33 - 110 [facility] Work Phone: ALT With P-5'-P [Catalytic activity/Vol] 13 U/L 7 - 45 [facility] Work Phone: Comment on above: Patients treated wit h Sulfasalazine may generate falsely decreased results for ALT. Anion gap [Moles/Vol] 12 mmol/L 10 - 20 [facility] Work Phone: AST With P-5'-P [Catalytic activity/Vol] 17 U/L 9 - 39 [facility] Work Phone: Bilirubin [Mass/Vol] 0.5 mg/dL 0.0 - 1.2 [facility] Work Phone: Calcium [Mass/Vol] 9.5 mg/dL 8.6 - 10.3 [facility] Work Phone: Chloride [Moles/Vol] 101 mmol/L 98 - 107 [facility] Work Phone: CO2 [Moles/Vol] 27 mmol/L 21 - 32 [facility] Work Phone: Creatinine [Mass/Vol] 0.83 mg/dL See Below [facility] Work Phone: Comment on above: Reference Range: 0.5 0 - 1.05 Glucose [Mass/Vol] 89 mg/dL 74 - 99 [facility] Work Phone: Potassium [Moles/Vol] 3.7 mmol/L 3.5 - 5.3 [facility] Work Phone: Protein [Mass/Vol] 7.4 g/dL 6.4 - 8.2 [facility] Work Phone: Sodium [Moles/Vol] 136 mmol/L 136 - 145 [facility] Work Phone: Urea nitrogen [Mass/Vol] 8 mg/dL 6 - 23 [facility] Work Phone: No Panel Informationon 06-16 >90 >90 [facility] Work Phone: Comment on above: CALCULATIONS OF NAV MATED GFR ARE PERFORMED USING THE 2020 CKD-EPI STUDY REFIT EQUATION WITHOUT THE RACE VARIABLE FOR THE IDMS-TRACEABLE CREATININE METHODS.https://jasn.asnjournals.org/content/early//ASN. 8769084188 Not at all - 0 [facility] Work Phone: Over half the days - 2 [facility] Work Phone: Several days - 1 [facility] Work Phone: Moderate Anxiety [facility] Work Phone: Somewhat difficult [facility] Work Phone: Comment on above: How difficult have t hose problems made it for you to do your work, take care of things at home, or get along with other people? 10 1 [facility] Work Phone: Comment on above: Over the last two we eks, how often have you been bothered by the following problems? Feeling nervous, anxious, or on edge: Several days - 1Not being able to stop or control worrying: Over half the days - 2Worrying too much about different things: Over half the days - 2Trouble relaxing: Over half the days - 2Being so restless that it's hard to sit still: Several days - 1Becoming easily annoyed or irritable: Over half the days - 2Feeling afraid as if something awful might happen: Not at all - 0 Office Visit (Family Adin walls)on 06-16-2022 Follow-up visit Diagnoses/Problems Generalized anxiety disorder (300.02) (F41.1) Low blood sugar (251.2) (E16.2) Elevated bilirubin (277.4) (R17) Orders Elevated bilirubin Comprehensive Metabolic Panel; Status:In Progress - Specimen/Data Collected; Done: [id number] Generalized anxiety disorder Start: busPIRone HCl - 5 MG Oral Tablet; Take 1 tablet in AM, and take 2 tablets at bedtime Follow-up visit in 3 months Outpatient Follow-up Status: Hold For - Scheduling Requested for: [id number] Vitamin B12, Serum; Status:In Progress - Specimen/Data Collected; Done: [id number] Vitamin D 25-Hydroxy; Status:In Progress - Specimen/Data Collected; Done: [id number] Provider Impressions CHRIS: Continue on Wellbutrin 150 mg daily, will start on Buspar 5 mg in AM and 10 mg in PM. Encouraged to take Buspar twice daily, set reminder. Will check vitamin B-12 and Vitamin D levels. Low blood sugar: Recheck lab Elevated bilirubin: Recheck lab Follow up in 3 months Chief Complaint 3 mth ov Adult Risk Screening Depression/Suicide Screening: During the past 2 weeks, the patient has not felt down, depressed or hopeless. During the past 2 weeks, the patient has not felt little interest or pleasure in doing things. History of Present Illness Christ is a 22 yo female, here today to follow up on anxiety. Started on Wellbutrin at last appointment for anxiety she reports she is taking the medication once daily, she forgets to take the medication twice daily feels like she is continuing to have anxiety, mostly stress related to work. She said she tried taking 300 mg once daily but did not feel there was much difference so she resumed 150 mg daily. Would like to try adding another medication to further treat her anxiety, she denies any new stressors Denies any acute Health concerns 'Scores and Scales' CHRIS-7 [id number] CHRIS-7 Total Score10 5 Feeling nervous, anxious or on edgeSeveral days - 1 Several days - 1 Not being able to stop or control worryingOver half the days - 2 Several days - 1 Worrying too much about different thingsOver half the days - 2 Not at all - 0 Trouble relaxingOver half the days - 2 Several days - 1 Being so restless that it's hard to sit stillSeveral days - 1 Not at all - 0 Becoming easily annoyed or irritableOver half the days - 2 Over half the days - 2 Feeling afraid as if something awful might happenNot at all - 0 Not at all - 0 Review of Systems Constitutional: as noted in HPI. Cardiovascular: no chest pain, no intermittent leg claudication, no lower extremity edema, no palpitations and no syncope. Respiratory: no cough, no shortness of breath during exertion, no shortness of breath at rest and no wheezing. Gastrointestinal: no abdominal pain, no blood in stools, no constipation, no diarrhea, no melena, no nausea, no rectal pain and no vomiting. Genitourinary: no dysuria, no change in urinary frequency, no urinary hesitancy, no feelings of urinary urgency and no vaginal discharge. Neurological: no difficulty walking, no headache, no limb weakness, no numbness and no tingling. Psychiatric: anxiety, but as noted in HPI, no depression, no anhedonia, no sleep disturbances and no substance use disorders. Active Problems Generalized anxiety disorder (300.02) (F41.1) Hyperhidrosis (705.21) (R61) Premenstrual migraine (346.40) (G43.829) Premenstrual syndrome (625.4) (N94.3) Surgical History History of Salvo tooth extraction Family History No pertinent family history Family history of hypertension (V17.49) (Z82.49) Family history of diabetes mellitus (V18.0) (Z83.3) Social History Does not have living will No illicit drug use Use of nicotine containing substance in combustion-free vaporization device (305.1) (Z72.0) Allergies No Known Drug Allergies Recorded By: Lauren Norman; 03/17/2022 8:21:26 AM Current Meds Medication NameInstructionReason buPROPion HCl ER (SR) 150 MG Oral Tablet Extended Release 12 HourTake 1 tablet once daily for 2 weeks, then take 1 tablet twice dailyGeneralized anxiety disorder hydrOXYzine HCl - 10 MG Oral Tabletmay take 1-2 tablets twice daily as needed for stress/anxietyGeneralize d anxiety disorder Glycopyrrolate 2 MG Oral TabletTAKE 2 TABLET DailyHyperhidrosis Norethindrone Acet-Ethinyl Est 1.5-30 MG-MCG Oral TabletTAKE 1 TABLET DAILY. Ondansetron HCl - 4 MG Oral Tablet Vitamin C TABS Vitals Vital Signs Recorded: [id number] 08:15AM Heart Rate75 Qefdajjq603 Hpwjtfann10 Uabmnz473.7 cm Pfvblu19.86 kg BMI Logxxdgycl99.55 kg/m2 BSA Calculated1.69 Tobacco Useb) No Physical Exam Constitutional: Alert and in no acute distress. Well developed, well nourished. Cardiovascular: Heart rate and rhythm were normal, normal S1 and S2, no gallops, no murmurs and no pericardial rub. Pedal pulses: Normal. No peripheral edema. Pulmonary: No respiratory distress. Clear bilateral breath sounds. Skin: Normal skin color and pigmenta (more content not included)... Normal [employer] Tobacco Screening.on 022 Tobacco use status CPHS b) No [facility] Work Phone: VITAMIN B12on 06-16-2022 Cobalamin (Vitamin B12) [Mass/Vol] 182 pg/mL Low 211 - 911 [facility] Comment on above: Performed By: #### V TB12 #### [address] [address] VITAMIN D, 25-HYDROXYon VITAMIN D, 25-HYDROXY 29 ng/mL Abnormal [facility] Comment on above: Result Comment: . DEFICIENCY: < 20 NG/ML INSUFFICIENCY: 20-29 NG/ML SUFFICIENCY: 30-100 NG/ML THIS ASSAY ACCURATELY QUANTIFIES THE SUM OF VITAMIN D3, 25-HYDROXY AND VIT D2,25-HYDROXY. Performed By: #### V TDOH #### [address] [address] Vitamin B12, Serumon Cobalamin (Vitamin B12) [Mass/Vol] 182 pg/mL below low threshold 211 - 911 [facility] Work Phone: Vitamin D 25-Hydroxyon 06-16 25-hydroxyvitamin D3 [Mass/Vol] 29 ng/mL Abnormal [facility] Work Phone: Comment on above: .DEFICIENCY: < 20 NG /MLINSUFFICIENCY: 20-29 NG/MLSUFFICIENCY: 30-100 NG/MLTHIS ASSAY ACCURATELY QUANTIFIES THE SUM OFVITAMIN D3, 25-HYDROXY AND VIT D2,25-HYDROXY. CBCon 03-17-2022 Erythrocyte distribution width (RBC) [Ratio] 14.9 % High 11.5 - 14.5 [facility] Comment on above: Performed By: #### C BC #### [address] [address] Hematocrit (Bld) [Volume fraction] 40.5 % Normal 36.0 - 46.0 [facility] Comment on above: Performed By: #### C BC #### [address] [address] Hemoglobin (Bld) [Mass/Vol] 13.2 g/dL Normal 12.0 - 16.0 [facility] Comment on above: Performed By: #### C BC #### [address] [address] MCHC (RBC) [Mass/Vol] 32.5 g/dL Normal 32.0 - 36.0 [facility] Comment on above: Performed By: #### C BC #### [address] [address] MCV (RBC) [Entitic vol] 89 fL Normal 80 - 100 [facility] Comment on above: Performed By: #### C BC #### [address] [address] Platelets (Bld) [#/Vol] 326 10*3/uL Normal 150 - 450 [facility] Comment on above: Performed By: #### C BC #### [address] [address] RBC 4.57 x10E12/L Normal 4.00 - 5.20 [facility] Comment on above: Performed By: #### C BC #### [address] [address] WBC (Bld) [#/Vol] 5.4 10*3/uL Normal 4.4 - 11.3 [facility] Comment on above: Performed By: #### C BC #### [address] [address] COMPREHENSIVE PANELon 2021 Albumin [Mass/Vol] 4.2 g/dL Normal 3.4 - 5.0 [facility] Comment on above: Performed By: #### C MP #### [address] [address] ALP [Catalytic activity/Vol] 42 U/L Normal 33 - 110 [facility] Comment on above: Performed By: #### C MP #### [address] [address] ALT [Catalytic activity/Vol] 23 U/L Normal 7 - 45 [facility] Comment on above: Result Comment: Saumya ents treated with Sulfasalazine may generate falsely decreased results for ALT. Performed By: #### C MP #### [address] [address] Anion gap [Moles/Vol] 10 mmol/L Normal 10 - 20 [facility] Comment on above: Performed By: #### C MP #### [address] [address] AST [Catalytic activity/Vol] 25 U/L Normal 9 - 39 [facility] Comment on above: Performed By: #### C MP #### [address] [address] Bilirubin [Mass/Vol] 1.7 mg/dL High 0.0 - 1.2 [facility] Comment on above: Performed By: #### C MP #### [address] [address] Calcium [Mass/Vol] 9.5 mg/dL Normal 8.6 - 10.3 [facility] Comment on above: Performed By: #### C MP #### [address] [address] Chloride [Moles/Vol] 103 mmol/L Normal 98 - 107 [facility] Comment on above: Performed By: #### C MP #### [address] [address] Creatinine [Mass/Vol] 0.82 mg/dL Normal 0.50 - 1.05 [facility] Comment on above: Performed By: #### C MP #### [address] [address] eGFR FEMALE >90 Normal >90 [facility] Comment on above: Result Comment: CALC ULATIONS OF ESTIMATED GFR ARE PERFORMED USING THE 2020 CKD-EPI STUDY REFIT EQUATION WITHOUT THE RACE VARIABLE FOR THE IDMS-TRACEABLE CREATININE METHODS. https://jasn.asnjournals.org/content/early/ASN.24428955 88 Performed By: #### C MP #### [address] [address] Glucose [Mass/Vol] 68 mg/dL Low 74 - 99 [facility] Comment on above: Performed By: #### C MP #### [address] [address] HCO3 (Bld) [Moles/Vol] 27 mmol/L Normal 21 - 32 [facility] Comment on above: Performed By: #### C MP #### [address] [address] Potassium [Moles/Vol] 4.0 mmol/L Normal 3.5 - 5.3 [facility] Comment on above: Performed By: #### C MP #### [address] [address] Protein [Mass/Vol] 7.3 g/dL Normal 6.4 - 8.2 [facility] Comment on above: Performed By: #### C MP #### [address] [address] Sodium [Moles/Vol] 136 mmol/L Normal 136 - 145 [facility] Comment on above: Performed By: #### C MP #### [address] [address] Urea nitrogen [Mass/Vol] 9 mg/dL Normal 6 - 23 [facility] Comment on above: Performed By: #### C MP #### [address] [address] Laboratory - Chemistry and C hemistry - challengeon 03-17-2022 Albumin BCP dye [Mass/Vol] 4.2 g/dL 3.4 - 5.0 [facility] Work Phone: ALP [Catalytic activity/Vol] 42 U/L 33 - 110 [facility] Work Phone: ALT With P-5'-P [Catalytic activity/Vol] 23 U/L 7 - 45 [facility] Work Phone: Comment on above: Patients treated wit h Sulfasalazine may generate falsely decreased results for ALT. Anion gap [Moles/Vol] 10 mmol/L 10 - 20 [facility] Work Phone: AST With P-5'-P [Catalytic activity/Vol] 25 U/L 9 - 39 [facility] Work Phone: Bilirubin [Mass/Vol] 1.7 mg/dL above high threshold 0.0 - 1.2 [facility] Work Phone: Calcium [Mass/Vol] 9.5 mg/dL 8.6 - 10.3 [facility] Work Phone: Chloride [Moles/Vol] 103 mmol/L 98 - 107 [facility] Work Phone: CO2 [Moles/Vol] 27 mmol/L 21 - 32 [facility] Work Phone: Creatinine [Mass/Vol] 0.82 mg/dL See Below [facility] Work Phone: Comment on above: Reference Range: 0.5 0 - 1.05 Glucose [Mass/Vol] 68 mg/dL below low threshold 74 - 99 [facility] Work Phone: Potassium [Moles/Vol] 4.0 mmol/L 3.5 - 5.3 [facility] Work Phone: Protein [Mass/Vol] 7.3 g/dL 6.4 - 8.2 [facility] Work Phone: Sodium [Moles/Vol] 136 mmol/L 136 - 145 [facility] Work Phone: TSH Qn 2.34 m[IU]/L See Below [facility] Work Phone: Comment on above: Reference Range: 0.4 4 - 3.98 TSH testing is performed using different testing methodology at [facility] than at other [facility]. Direct result comparisons should only be made within the same method. Urea nitrogen [Mass/Vol] 9 mg/dL 6 - 23 [facility] Work Phone: Laboratory - Hematology and Cell countson 03-17-2022 Erythrocyte distribution width (RBC) [Ratio] 14.9 % above high threshold See Below [facility] Work Phone: Comment on above: Reference Range: 11. 5 - 14.5 Hematocrit (Bld) [Volume fraction] 40.5 % See Below [facility] Work Phone: Comment on above: Reference Range: 36. 0 - 46.0 Hemoglobin (Bld) [Mass/Vol] 13.2 g/dL See Below [facility] Work Phone: Comment on above: Reference Range: 12. 0 - 16.0 MCHC (RBC) [Mass/Vol] 32.5 g/dL See Below [facility] Work Phone: Comment on above: Reference Range: 32. 0 - 36.0 MCV (RBC) [Entitic vol] 89 fL 80 - 100 [facility] Work Phone: Platelets (Bld) [#/Vol] 326 10*3/uL 150 - 450 [facility] Work Phone: RBC (Bld) [#/Vol] 4.57 {x10E12/L} See Below [facility] Work Phone: Comment on above: Reference Range: 4.0 0 - 5.20 WBC (Bld) [#/Vol] 5.4 10*3/uL 4.4 - 11.3 [facility] Work Phone: No Panel Informationon 03-17 >90 >90 [facility] Work Phone: Comment on above: CALCULATIONS OF NAV MATED GFR ARE PERFORMED USING THE 2021 CKD-EPI STUDY REFIT EQUATION WITHOUT THE RACE VARIABLE FOR THE IDMS-TRACEABLE CREATININE METHODS.https://jasn.asnjournals.org/content//ASN. 9586474039 Not at all - 0 [facility] Work Phone: Over half the days - 2 [facility] Work Phone: Several days - 1 [facility] Work Phone: Mild Anxiety [facility] Work Phone: Somewhat difficult [facility] Work Phone: Comment on above: How difficult have t hose problems made it for you to do your work, take care of things at home, or get along with other people? 5 1 [facility] Work Phone: Comment on above: Over the last two we eks, how often have you been bothered by the following problems? Feeling nervous, anxious, or on edge: Several days - 1Not being able to stop or control worrying: Several days - 1Worrying too much about different things: Not at all - 0Trouble relaxing: Several days - 1Being so restless that it's hard to sit still: Not at all - 0Becoming easily annoyed or irritable: Over half the days - 2Feeling afraid as if something awful might happen: Not at all - 0 Office Visit (Family Adin walls)on 03-17-2022 Follow-up visit Diagnoses/Problems Hyperhidrosis (705.21) (R61) Premenstrual migraine (346.40) (G43.829) Premenstrual syndrome (625.4) (N94.3) Family history of diabetes mellitus (V18.0) (Z83.3) : Grandparent Generalized anxiety disorder (300.02) (F41.1) Orders Generalized anxiety disorder Start: buPROPion HCl ER (SR) 150 MG Oral Tablet Extended Release 12 Hour; Take 1 tablet once daily for 2 weeks, then take 1 tablet twice daily Follow-up visit in 3 months Outpatient Follow-up Status: Complete Done: 17Mar2022 Hyperhidrosis Renew: Glycopyrrolate 2 MG Oral Tablet; TAKE 2 TABLET Daily Complete Blood Count; Status:Active; Requested for:17Mar2022; Comprehensive Metabolic Panel; Status:Active; Requested for:17Mar2022; TSH WITH REFLEX TO FREE T4 IF ABNORMAL; Status:Active; Requested for:17Mar2022; Provider Impressions Hyperhidrosis: Refill Glycopyrrolate Anxiety: CHRIS-7 score at 5, will start on Wellbutrin 150 mg daily for 2 weeks, then increase to 150 mg twice daily. 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 there are no concerns today. Concerns raised today include: premenstrual symptoms nausea/Migraine. The patient's health since the last visit is described as good. There are no interval changes in the patient's PMH, PSH, and current medications. There are no interval changes in the patient's social and family history. She has regular dental visits. The patient brushes 2 time(s) a day and reports her last dental visit was >2years. She complains of vision problems. Vision care includes wearing glasses, wearing soft contact lenses and an eye examination within the last year. She denies hearing loss. Immunizations status: up to date. Lifestyle: She consumes a diverse and healthy diet. She does not have any weight concerns. She exercises regularly. She exercises less than three times a week. Exercise includes walking. She uses tobacco. The patient is a current smokeless tobacco user. She consumes alcohol. She reports occasional alcohol use. She typically drinks wine and hard liquor. Reproductive health: she reports abnormal menses. Menstrual history:. age at menarche was 11. LMP: the last menstrual period was 03/09/22 and it was of a normal amount and duration. she uses contraception. For contraception, she uses oral contraception pills. she is sexually active. follows with MARBLE CARVER, on oral contraceptive. History: 0. Cervical cancer screening: cancer screening reviewed and current. Metabolic screening: no previous lipid profile. Christ is a 22 yo female here today to establish care, she has a PMHx significant CHRIS, PMS, and Hyperhidrosis. 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 She reports she was treated with Prozac however was not tolerated, she was seeing virtual psychiatrist and she doesn?t feel comfortable with that type of care, prefers in person. Follows with MARBLE CARVER regarding PMS symptoms including nausea and migraine 'Scores and Scales' CHRIS-7 17Mar2022 CHRIS-7 Total Score5 Feeling nervous, anxious or on edgeSeveral days - 1 Not being able to stop or control worryingSeveral days - 1 Worrying too much about different thingsNot at all - 0 Trouble relaxingSeveral days - 1 Being so restless that it's hard to sit stillNot at all - 0 Becoming easily annoyed or irritableOver half the days - 2 Feeling afraid as if something awful might happenNot at all - 0 Review of Systems Constitutional: no chills, no fever and no night sweats. Eyes: no blurred vision and no eyesight problems. ENT: no hearing loss, no nasal congestion, no nasal discharge, no hoarseness and no sore throat. Neck: no mass(es) and no swelling. Cardiovascular: no chest pain, no intermittent leg claudication, no lower extremity edema, no palpitations and no syncope. Respiratory: no cough, no shortness of breath during exertion, no shortness of breath at rest and no wheezing. Gastrointestinal: as noted in HPI, no abdominal pain, no blood in stools, no constipation, no diarrhea, no melena, no nausea, no rectal pain and no vomiting. Genitourinary: as noted in HPI, no dysuria, no change in urinary frequency, no urinary hesitancy, no feelings of urinary urgency and no vaginal discharge. Musculoskeletal: no arthralgias, no back pain and no myalgias. Integumentary: no new skin lesions and no rashes. Neurological: headache, but as noted in HPI, no difficulty walking, no limb weakness, no numbness and no tingling. Psychiatric: anxiety, but no depression, no anhedonia and no substance use disorders. Hematologic/Lymphatic: no tendency for easy bleeding and no tendency for easy bruising. Surgical History History of Salvo tooth extraction Family History No pertinent family history Family history of hypertension (V17.4 (more content not included)... Normal [facility] TSH WITH REFLEX TO FREE T4 I F ABNORMALon 03-17-2022 TSH Qn 2.34 m[IU]/L Normal 0.44 - 3.98 [facility] Comment on above: Result Comment: TSH testing is performed using different testing methodology at [facility] than at other [facility]. Direct result comparisons should only be made within the same method. Performed By: #### T FAROOQS #### [facility] [address] [place] [address] Tobacco Screening.on 022 Tobacco use status CPHS a) Yes -[facility] Work Phone: Tobacco Screening. Yes -[facility] Work Phone: Coding Summary.on 07-13-2021 Coding Summary. [id number] Gh0b Ww+PGhlYWQ+UC9HVDVwW76be FAywN2RK4gOIN2MFFBBQMNRQ E2KOR3ygEU6GEnuT8YgwoHd ErobnUNgFT21MTo5SUA1cCje RGpkzQ1mgNPlZ4v3FiTxAV85 tU74WJdxBBAkGmZ5JzHokgfo bWFy H2jjUmTojTBuKgk+PHRhYmxl IHdpZHRoPScxMDAlJyBzdHls FA8oDe2iFNPxUGJnzHtxbIKv OiBj p2rfILBnNFbgNE7jqFuqR0Ud vNV3KOAel6j2Ym26qTG+PHRk CCZ5yMxdLKgxe566VcUak0cf IDM3 wLHiSGjeTXQ4I52kw4N8AFXd ETWeXZT0fSU0eJ9kmUaffhnc A5BviAMpHuM6CTL5oZGojR2r bGln xbftwQ3kFdn+F94RTF9IFRHH UF5DUky6A3OmDogwxVH+PC90 TYRyHK62iEUhcDRcg0ndaYa4 JzEw OBFiEGL1tMlyKNvbg6YyBOCb P02plBYng3I0RTLtbWsszOQz SjMtsLJ3hM2uNVvsoljzz3pj dzsn Knnvp2mfxo24kA50W69rJPek RBIsYQJ9CQPzYIImzIlomx5q xK4gHf0+TKrgp2wwc9evcAh2 IjIw IQQsruTthWgvUBT8i0RxMd73 N7NncSuea2ZgXos4ij79nQEm p1K8fDW3SQzyMPStoN4lWEcj ZnQ6 AUKlDtPgbC85lZSeKIcxRw1a eLvtwGctSM9gBGQwnpbyPPGu lO7uQFNrsNUbvQcrKX4bPZVv bjtm f370SpCbMHZ6VJKbrQHgO8Nd mD6hHhKtBDNsNEQbN0JagLGm VOoxK398BUbfAoY8PHOrreBw Y2Fs RSJkvGqpVlT2w5L9Rs6Vp3Cv vetuJQD9OZfuEEVrXgI5OmYd VdD4E0MrXxf0KFRgfMqxAA0u J3Bh THTifqvqvnehjCR4QFMaQYYi aB55qMEvONsbVk0ug8D9v312 VBNjCEEmfA01Hj1gaNdfILXk dCBU lM0wlzoiz3oneyviHoJaGWQo DGu5VIe1ZHQjjStmAvJzYEM6 KyX1CUF9jWVzuV1ptZjwxfic dG9w Oyc+K52yjR6pWOC8BZW2bjvj XLYugyPoWK24EN80O3OzKyxp dGFibGU+PLYvcrLbmAbhMO8k YmFj b8eiv3HqTKxhF4PhCOLtZAwi Zlg0TMPfADW9qXU3kA6tSDGd WDkjd5C5cQB3Q2XeeaTplt7e b2xs IJThJGsnU34nkCHwr3N7NHGj nUB9LLZpmCwjQzPglN82Gxs+ HZKxvYmjt2CbSewxj8fsb4zn dGg9 BgVtWDHlzgNjhHobWXS3j3Nx Ie07E72bJKsaASDcMFXxEHHw NBKglKkmmt3udA7aDw3+PGNv bCB3 oES1mL1fNYMlTiA7MVjwM734 UuRywNKmTkuvj7gxr7tmsFo6 OsOpERRmpgOsuAowKEX9z8Vg Lz48 Z21jOPipWNCzHSBaSQKvSPIr tSrrpn9pgH3rHg4+EA2xv2ey eh71mS27eKC+RTTzTLS3pJwl PSdw VKKvoJ2iIZsoNsN6OGUtEqYj iW32dJFiPDhyDb0cqKzicNvk YX5xYJYtmreer661NmTnq3na IDEw mUFjFVzxOJC0E56dl2W3BFQa KJFyEGH5pTI1rY2gkVzeqbue bGVmdDsgdmVydGljYWwtYWxp Z246 IHRvcDsnPlBhdGllbnQgTmFt MTs9F2HcHyh8BBIhsSfdUY1u sQSzOOexCf6kmRxsoEeiSU1t NTBp vhboi946VeZdx7ciNJMqwLSd PSvlDPU4A81qx9G9OSFdTYQe RSZ7pXP7xE5fqMskpvuokNUx dDsg ptQndKjrMLakYXudY229VCNt pKioPjVeefUkCDFmsVM5BB65 EU03tUSos0O0tCI8L2SzBSFd bmct lgujvFX0XCZmFJAodA74Ln7h eWwoDs3yUBJnOXU9EFFudQKo S3SlhO2aTdYcZRMwROQfD5Gs eHQt DEleS030RPdhZlB2XPHhozVy I9ZiUYNztOsnCoJ4t4N2Dv9M C8R6JZ43EM95bLBjc2S8vCX7 J3Bh LEGlbursslrosSZ6MOHtFLNk lM60Ew3roMnaXm4pLBIaBZG0 WTAccLYjX9IszS2hXqMlLOOe MDAw Z7PyiLRmUUydJ161VKnbQdF9 GUToowDbH4UeGDCzvFroFyY8 j4W5Vb1GAKg8KR50VS07xGLe c3R5 uJO8Z3QsLJPjrshkeoezcPB3 FETjMMYlyU70Ii8whIieJx3j MCMkYFF9NQOazVBiA1YxnD8u OiAj JLJgGAAcV9AztHBmNTgrI909 KVorOtF5PSQnnkKbS7TyXNYn lKyuFtZ8i4Q6Ky1DAVQrCK85 IFR5 sBJ3PY14RN76I9WjMtkdzPLo bGU+PHRhYmxlIHdpZHRoPScx SVZqSmSawVavKW8pIv3uYMRh LWNv kQhqjYFbInPup2feTXKhTMtm KN2frWykI9PjpDA3UYKgf6o5 Tv53X80jI7KdjDT+PGNvbCB3 aWR0 dH5tXfAvBoJ2MLgnG520DvRi qQVfYvonz0iqi8ofpRo8GzM0 EBFagaMzpLfiHRJ3r8TdPi87 Y29s IHdpZHRoPSIxNSUiIHZhbGln dk9pwH0wJc7+IEKviLS0dGA4 oJ0kTfAeFgH3ICzkA716FoCm cCIv Lbmyq7ncg9zziLf2QbFjALNx iwMhdTncEUV5j8RyPt12A6Ai vPsnh0OiExy0kb68dYSdp8Y3 bGU9 J4HrXRVbghjalJZfxWykVE9l VRTlpncvATZkvP0yZQGzO2e1 UtWjQwG9ONdnR5IbavG9BRCm cHQg JVrxESH1G26mp1S8WTLzWALl FQY0vBG2pF7moPmbgholvBCe mAdqsaAdcHdeFMzzCSntG680 IHRv tXxxAOSomW9lSLHliXMdeNdy LL0gGSLcmjnrWaCUUK6BCPYJ BVGDXZf1T6WiSiq9QULfwGdr ZT0n wALvDWklOo9yiGwhbLhlVM0s ONCzpuavNTKwpA7kTDFyoEHu dGksGE9jRSSfyhelc616MhLg MHB0 CNHziIJyM2DzuQ2xMsGeVGLk ESJbG2TexXWxGVodW787NNhc ZhV6YODiysUxC9VqBDEixHmm OiB0 d1S4Hb3nOz9qAE4dPOl2SN22 ME48tJRrm0P7wNX4N5WjRYHi sdbyiaprbLL6YPYqDLQedW32 cGFk PLxbFv1bj9G9j238BXCcKSQd gQ36Zr9jsXtqAOTsjITAiX7c qbfdp1vedpapFrFuBMBoWFx7 ZXh0 LTPibHhqYrCpALI6JhT9FDI0 jQWxxX2oiRmaxqjteU6sSlm+ LaJjRXUxvsH8H3MbQcs9ENSy dHls YN4qmOZmETitIb3oaAbuwFoz XT4cJJBctmtgMDDugY0hAKVl gLJwxIscFY2eTISsrlygj540 OiAx TPD1MPDwpLNkG7TwbS8nVjXk PKDsFVRlD9JdlGRgMOweV528 LDrtKnF4FLBizjEpR3ZeWIYx aWdu HjQ6y6A3Xy6EYM9wfEC5Q3Yj Cej8FWXvpDbeTR8ruZFzKUeu My7gbAqeqFwdSE3jKYWfdahx YWRk oU9jIUQrrWXqgApeQH0eJBUw esgag062FhDxZXT1WKRszYLt O2ZhdE4aEpXpLQKpIGWxV8Gq eHQt VXhxD902YKzfTuC1BRSdktKh Q2ThLJIirIzjMlT7c4S0Ce9R PTIjFJAeqTHqHkB9S0EbLsiz dHI+ GG77KPSwVD18qHGqsSTho9vn kPd5EjLnNMNrXYN6sCjkVFss e6VtDPBbB16wlCQxs9A2PRYs bGxh dGRcGcWipMX2yA8vGUzihbhw x2fclosiXwskv3tnau46cI77 S03qRRgyZFAvSKUiSMEqECLe bGln cg3ntD5zCv1+DNYgmQI9kFI4 pN8wJcHcMaP0LLqsM707KwSk vDNkXdpwk0fgd7mjsVl0OnZg JSIg caRktIawQTC2o3EqNl21S13r IHdpZHRoPSIyMCUiIHZhbGln fw4joQ9nAq5+LQ3cq0qmlj61 cD48 dHI+MRGbQYP1zSqiRPfhWFIn hK4uSSxnJxP0ZMHaZhGoxH62 hFGoDBkaBy7fcXirrHceON8b NTBp dtjzx878YbNvc6faLICioOLu CUxzMCE5T23jt4L3UBKrFCHs IGV9ePF9rN1ocBsnucgbtGOk dDsg ijHrxCccGCxhSFaqF539ECOt ePdkRbDyfJAcH0yqhjAWMH2z OjwvdGQ+OLPeNSW7hKpgYFdt YWRk jZ2pSIDdH7l5OzNhTmH8MEmn R5JxkyX6OGBtuWXaXLPlnAFN kP0iysklw3nbuegaQhXtIIRd MDt0 FFw9CWFauWpsHgQzUVD5QdM2 QBH3jYUbnA5bqRcbvzomsQ5v Oyc+RklOOjwvdGQ+PHRkIHN0 eWxl BClaAMUcfU3jZWOlW4w8UdHe JcW3GVrdI3MwqkN0VPOcaCXh TOUgxUUYvA8putens9xguujs IzAw TSOhMVz8GRp6JJAdeMitFxOm VZT6CfE2TIH7cWDfrI2lnJrl bqiooW1vNgv+TVJOOjwvdGQ+ PHRk VHB8qPrlINhcQLWxcP6tUSLf Z2x3VhZjBbR9EVbnN0FjnmI7 RKLrlXSvCJXnwCLArL7xgibn b2xv [id number] [id number] [id number]+UGF5 ZXI6 [id number]+ PHRhYmxlIHdpZHRoPScxMDAl [id number] bGxh cHNl (more content not included)... Normal [facility] Grp A Strp PCRon 06-26-2021 Grp A Strp Intrl Ctrl Pass Normal [facility] Comment on above: Performed By: #### 1 [id number] #### [facility] [address] [place] [address] S. pyogenes rRNA Probe Ql (Unsp spec) Negative Normal [facility] Comment on above: Result Comment: Test ing performed using DNA amplification. 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 Reports has had strep throat x2 this yr. Onset - last night Headache- no Earache- no, reports was slightly itchy, but not at the moment Sinus Congestion- yes Rhinorrhea- no Sore Throat- yes, reports red and feels swollen Cough- no wheezing- no SOB - no Lung Hx (asthma, recurring bronchitis/chest colds, COPD)- no Fevers/chills- yes, chills, but temp has been normal GI symptoms- no Covid exposure - no Vaccinated - no Treatment - Advil History of Present Illness I have reviewed and verified the staff HPI to be accurate for this encounter. Patient presents via phone visit for concern of nasal congestion, sore throat. Symptoms x12 hours. Complains of chills. Denies fever. Denies cough. Denies known Covid exposure. Is not Covid vaccinated. Has been using Advil with mild improvement. Patient is concerned about strep. Patient took a rapid covid test this afternoon- negative Review of Systems Fatigue: yes Body aches: yes Chills: yes Fever: no SCOTT: no Nasal congestion: yes Rhinorrhea: yes Cough: no SOB: no Wheezing: no Sore throat: yes Ear pain: no + ear itchiness at times Ear drainage: no Loss of taste or smell: no Nausea: no Vomiting: no Diarrhea: no Current or former smoker: no Underlying health conditions: no Known Covid exposure: no Physical Exam Vitals & Measurements HT: 155 cm HT: 155.0 cm WT: 59 kg WT: 59.0 kg BMI: 24.56 Phone visit with brief PE while patient in vehicle Lungs: No conversational dyspnea, no audible wheezing, Denies SOB Throat: Moderate pharyngeal erythema, 2+ tonsils, no exudate, no petechiae, no palatal inflammation Neck: Palpable left anterior cervical node Mental Status: Alert and oriented x3. Normal mood and affect Assessment/Plan 1. Acute nasopharyngitis [common cold] (J00: Acute nasopharyngitis [common cold]) This visit was conducted via phone communications from my office due to the restrictions of the COVID-19 pandemic. No physical exam was conducted due to audio only communication with the patient located at [address] [place], [place] [id number], with no one else. If it is determined that the patient should be evaluated in person, the patient will be directed to the appropriate clinic or venue. The patient or their guardian verbally consented to this visit. Phone time was 15 minutes discussing health issues with counseling and coordination of care. Discussed exam and hx are consistent with viral illness. Advised of typical duration. Discussed antibiotics unfortunately do not treat viral illnesses, it will take time to run course- usually 7-14 days. Fluids/rest encouraged, PRN tylenol/ibuprofen for any pain. May use antihistamines/decongest ants, salt water gargles, Cepacol throat sprays or throat lozenges for symptomatic tx. Follow up with PCP if not improving over next 7 days or significantly worsening symptoms. Patient and/or parent verbalized understanding of tx plan. Discussed recommend repeat rapid Covid testing prior to returning to work on Monday. Patient states she will try to get this from the library. Will call if she needs order for rapid test for Monday. Ordered: Telephone Est 11 to 20 minutes [id number] 2. Sore throat (J02.9: Acute pharyngitis, unspecified) rapid strep neg. Strep cx pending Ordered: Group A Strep by PCR Rapid Strep POC [id number] Telephone Est 11 to 20 minutes [id number] Follow-up With When Contact Information AGUSTINA BROWNE, Ihsan [address] [address]- Additional Instructions: Patient Education Viral Respiratory Infection, Xavw-Zh-Jecy Problem List/Past Medical History Ongoing No qualifying data Historical No qualifying data Medications fluoxetine, Oral Ortho Tri-Cyclen, Oral, Daily Robinul Allergies No Known Allergies No Known Medication Allergies Social History Tobacco - Denies Tobacco Use, 06/25/2021 Never (less than 100 in lifetime) Tobacco Use:. Never Smokeless Tobacco Use:. Cigarettes, 06/25/2021 Family History Hypertension: Father. Normal [facility] Comment on above: Result Comment: Elec tronically Signed By: Ena LOVE CNP\.kleber\Date and Time Signed: 06/25/21 16:18 EST Patient Educationon 06-25-20 21 Patient Education Infectious Disease Viral Respiratory Infection A viral respiratory infection is an illness that affects parts of the body that are used for breathing. These include the lungs, nose, and throat. It is caused by a germ called a virus. Some examples of this kind of infection are: ? A cold. ? The flu (influenza). ? A respiratory syncytial virus (RSV) infection. A person who gets this illness may have the following symptoms: ? A stuffy or runny nose. ? Yellow or green fluid in the nose. ? A cough. ? Sneezing. ? Tiredness (fatigue). ? Achy muscles. ? A sore throat. ? Sweating or chills. ? A fever. ? A headache. Follow these instructions at home: Managing pain and congestion ? Take cciq-ryz-slsqluq and prescription medicines only as told by your doctor. ? If you have a sore throat, gargle with salt water. Do this 3?4 times per day or as needed. To make a salt-water mixture, dissolve ??1 tsp of salt in 1 cup of warm water. Make sure that all the salt dissolves. ? Use nose drops made from salt water. This helps with stuffiness (congestion). It also helps soften the skin around your nose. ? Drink enough fluid to keep your pee (urine) pale yellow. General instructions ? Rest as much as possible. ? Do not drink alcohol. ? Do not use any products that have nicotine or tobacco, such as cigarettes and e-cigarettes. If you need help quitting, ask your doctor. ? Keep all follow-up visits as told by your doctor. This is important. How is this prevented? ? Get a flu shot every year. Ask your doctor when you should get your flu shot. ? Do not let other people get your germs. If you are sick: ? Stay home from work or school. ? Wash your hands with soap and water often. Wash your hands after you cough or sneeze. If soap and water are not available, use hand sterile processing manager. ? Avoid contact with people who are sick during cold and flu season. This is in fall and winter. Get help if: ? Your symptoms last for 10 days or longer. ? Your symptoms get worse over time. ? You have a fever. ? You have very bad pain in your face or forehead. ? Parts of your jaw or neck become very swollen. Get help right away if: ? You feel pain or pressure in your chest. ? You have shortness of breath. ? You faint or feel like you will faint. ? You keep throwing up (vomiting). ? You feel confused. Summary ? A viral respiratory infection is an illness that affects parts of the body that are used for breathing. ? Examples of this illness include a cold, the flu, and respiratory syncytial virus (RSV) infection. ? The infection can cause a runny nose, cough, sneezing, sore throat, and fever. ? Follow what your doctor tells you about taking medicines, drinking lots of fluid, washing your hands, resting at home, and avoiding people who are sick. This information is not intended to replace advice given to you by your health care provider. Make sure you discuss any questions you have with your health care provider. Document Released: 06/15/2009 Document Revised: 07/11/2019 Document Reviewed: 08/13/2018 [employer] Patient Education ? 2019 [employer]. [facility] Vital Signs Date Time Vital Sign Value Performing Clinician Valeryi ernie 11-08-2024 10:59-0400 Body height 154.9 cm [facility] Nurse [facility] 11-08-2024 10:51-0400 Body mass index (BMI) [Ratio] 27.87 kg/m2 [facility] Nurse [facility] 11-08-2024 10:51-0400 Body weight 66.91 kg [facility] Nurse [facility] 11-08-2024 10:51-0400 Diastolic blood pressure 76 mm[Hg] [facility] Nurse [facility] 11-08-2024 10:51-0400 Systolic blood pressure 104 mm[Hg] [facility] Nurse [facility] 09-18-2024 15:27-0500 Body height 157.5 cm Delroy Aguirre [employer] Work Phone: [facility] 09-18-2024 15:27-0500 Body mass index (BMI) [Ratio] 27.44 kg/m2 Delroy Aguirre AIR VALUE TESTER-CITY DISPATCHER Work Phone: [facility] 09-18-2024 15:27-0500 Body temperature 97.81 [degF] Delroy Aguirre [employer] VALUE TE[employer]CITY DISPATCHER Work Phone: [facility] 09-18-2024 15:27-0500 Body weight 68.04 kg Delroy Aguirre [employer] VAL[employer] TE[employer]CITY DISPATCHER Work Phone: [facility] 09-18-2024 15:27-0500 Diastolic blood pressure 82 mm[Hg] Delroy Aguirre [employer] VAL[employer] TE[employer]CITY DISPATCHER Work Phone: [facility] 03-05-2025 15:27-0500 Heart rate 95 /min Delroy Aguirre [employer] VAL[employer] TE[employer]CITY DISPATCHER Work Phone: [facility] 09-18-2024 15:27-0500 Respiratory rate 16 /min Delroy Aguirre [employer] VAL[employer] TE[employer]CITY DISPATCHER Work Phone: [facility] 09-18-2024 15:27-0500 SaO2% (BldA) [Mass fraction] 98 % Delroy Aguirre [employer] TE[employer]CITY DISPATCHER Work Phone: [facility] 09-18-2024 15:27-0500 Systolic blood pressure 114 mm[Hg] Delroy Aguirre [employer] VAL[employer] TE[employer]CITY DISPATCHER Work Phone: [facility] 06-10-2024 09:27-0500 Body weight 70.76 kg Edy Jossue DO Work Phone: [facility] 06-10-2024 09:27-0500 Diastolic blood pressure 70 mm[Hg] Edy Jossue DO Work Phone: [facility] 06-10-2024 09:27-0500 Systolic blood pressure 120 mm[Hg] Edy Jossue DO Work Phone: [facility] 11-24-2023 07:40-0400 Body height 158.8 cm Josr Stentz PA-C Work Phone: [facility] 11-24-2023 07:40-0400 Body mass index (BMI) [Ratio] 25.92 kg/m2 Josr Stentz PA-C Work Phone: [facility] 11-24-2023 07:40-0400 Body weight 65.32 kg Josr Stentz PA-C Work Phone: [facility] 11-24-2023 07:40-0400 Diastolic blood pressure 70 mm[Hg] Josr Stentz PA-C Work Phone: [facility] 11-24-2023 07:40-0400 Heart rate 63 /min Josr Stentz PA-C Work Phone: [facility] 11-24-2023 07:40-0400 SaO2% (BldA) [Mass fraction] 97 % Josr Stentz PA-C Work Phone: [facility] 11-24-2023 07:40-0400 Systolic blood pressure 118 mm[Hg] Josr Stentz PA-C Work Phone: [facility] 09-14-2022 08:23-0500 Body height 158.75 cm Ramila Martínez Sivan Work Phone: -[facility] Work Phone: 09-14-2022 08:23-0500 Body mass index (BMI) [Ratio] 26.73 kg/m2 Ramila Martínez Goodridge Work Phone: -[facility] Work Phone: 09-14-2022 08:23-0500 Body surface area Derived from formula 1.69 m2 Ramila Martínez Sivan Work Phone: -[facility] Work Phone: 09-14-2022 08:23-0500 Body weight 67.36 kg Ramila Martínez Goodridge Work Phone: -[facility] Work Phone: 09-14-2022 08:23-0500 Diastolic blood pressure 70 mm[Hg] Ramila Martínez Goodridge Work Phone: [facility] Work Phone: 09-14-2022 08:23-0500 Heart rate 75 /min Ramila L Goodridge Work Phone: -[facility] Work Phone: 09-14-2022 08:23-0500 Systolic blood pressure 118 mm[Hg] Ramila L Goodridge Work Phone: -[facility] Work Phone: 06-16-2022 08:15-0500 Body height 158.7 cm Ramila L Goodridge Work Phone: [facility] Work Phone: 06-16-2022 08:15-0500 Body mass index (BMI) [Ratio] 26.55 kg/m2 Ramila Livingstond Work Phone: [facility] Work Phone: 06-16-2022 08:15-0500 Body surface area Derived from formula 1.69 m2 Ramila Martínez Goodridge Work Phone: [facility] Work Phone: 06-16-2022 08:15-0500 Body weight 66.86 kg Ramila Livingstond Work Phone: [facility] Work Phone: 06-16-2022 08:15-0500 Diastolic blood pressure 84 mm[Hg] Ramila Livingstond Work Phone: [facility] Work Phone: 06-16-2022 08:15-0500 Heart rate 75 /min Ramila Livingstond Work Phone: [facility] Work Phone: 06-16-2022 08:15-0500 Systolic blood pressure 128 mm[Hg] Ramila Livingstond Work Phone: [facility] Work Phone: 03-17-2022 08:20-0400 Body height 158.75 cm Ramila Livingstond Work Phone: [facility] Work Phone: 03-17-2022 08:20-0400 Body mass index (BMI) [Ratio] 25.64 kg/m2 Ramila Livingstond Work Phone: [facility] Work Phone: 03-17-2022 08:20-0400 Body surface area Derived from formula 1.66 m2 Ramila Martínez Goodridge Work Phone: [facility] Work Phone: 03-17-2022 08:20-0400 Body weight 64.61 kg Ramila Finnegan Work Phone: [facility] Work Phone: 03-17-2022 08:20-0400 Diastolic blood pressure 70 mm[Hg] Ramila Finnegan Work Phone: [facility] Work Phone: 03-17-2022 08:20-0400 Heart rate 64 /min Ramila Finnegan Work Phone: [facility] Work Phone: 03-17-2022 08:20-0400 Systolic blood pressure 114 mm[Hg] Ramila Finnegan [facility] Work Phone: 02-19-2021 17:00-0400 Body height 165.1 cm Ihsan Camarillo Other Phone: [facility] 02-19-2021 17:00-0400 Body temperature 97.7 [degF] Ihsan Camarillo Other Phone: [facility] 02-19-2021 17:00-0400 Diastolic blood pressure 72 mm[Hg] Ihsan Camarillo Other Phone: [facility] 02-19-2021 17:00-0400 Heart rate 96 /min Ihsan Camarillo Other Phone: [facility] 02-19-2021 17:00-0400 Respiratory rate 16 /min Ihsan Camarillo Other Phone: [facility] 02-19-2021 17:00-0400 SaO2% (BldA) [Mass fraction] 97 % Ihsan Camarillo Other Phone: [facility] 02-19-2021 17:00-0400 Systolic blood pressure 108 mm[Hg] Ihsan Camarillo Other Phone: [facility] Encounters Encounter Date Encounter Type Care Provider Facility Start: 11-19-2024 End: 11-19-[address] [facility] Start: 11-08-2024 End: 11-08-2024 Office outpatient visit 5 minutes [facility] Jossue Nurse [facility] Comment on above: GA: 7w5d Start: 11-08-2024 End: 11-08-2024 ambulatory EDY JOSSUE Not Available Start: 10-14-2024 ambulatory [facility] Start: 10-12-2024 End: 10-13-2024 ambulatory Edy R JOSSUE Facility:[facility] Start: 10-12-2024 End: 10-13-2024 Patient encounter procedure Edy R JOSSUE [facility] Start: 10-07-2024 End: 10-07-2024 ambulatory EDY JOSSUE Not Available Start: 09-18-2024 End: 09-18-2024 Patient encounter procedure Delroy Yeni Raúl [employer] VAL[employer] TE[employer]-CITY DISPATCHER Work Phone: [facility] Comment on above: Influenza A (Primary Dx); Acute upper respiratory infection Start: 09-18-2024 End: 09-18-2024 ambulatory [facility] Start: 06-10-2024 End: 06-10-2024 Bamboo flowsheet Edy Jossue DO Work Phone: [facility] Start: 06-10-2024 End: 06-20-2024 Bamboo flowsheet Edy Jossue DO Work Phone: [facility] Start: 06-10-2024 End: 06-20-2024 Clinisync Result Encounter Edy Jossue DO Work Phone: [facility] Unsolicited Start: 06-10-2024 End: 06-10-2024 ambulatory EDY JOSSUE Not Available Start: 06-10-2024 End: 06-10-2024 Patient encounter procedure Edy Jossue DO Work Phone: [facility] Start: 06-10-2024 End: 06-10-2024 Periodic preventive med est patient 18-39 yrs Edy Marcum DO Work Phone: [facility] Comment on above: Well woman exam with routine gynecological exam; Insulin resistance Start: 05-20-2024 End: 05-20-2024 Emergency department patient visit Ihsan Camarillo MD Work Phone: [facility] Start: 01-09-2024 End: 01-09-2024 Office outpatient visit 10 minutes Brennon Burt MD Work Phone: [facility] Comment on above: Traveler's diarrhea (Primary Dx) Start: 01-09-2024 End: 01-09-[address] [facility] Start: 11-24-2023 End: 11-24-2023 Office outpatient visit 15 minutes [facility]-C Work Phone: [facility] Comment on above: Hyperhidrosis; Premenstrual migraine; Premenstrual syndrome; Generalized anxiety disorder Start: 11-24-2023 End: 11-24-[address] [facility] Start: 05-23-2023 End: 05-24-2023 ambulatory RAMILA L [facility] Start: 05-22-2023 End: 05-22-2023 Office outpatient visit 15 minutes Gladys Esteban [employer] VAL[employer] TE[employer]CITY DISPATCHER Work Phone: [facility] Comment on above: Burning with urinati on (Primary Dx) Start: 04-07-2023 End: 04-08-2023 ambulatory RAMILA Martínez SIVAN [facility] Start: 03-21-2023 End: 03-21-2023 Office outpatient visit 15 minutes Ramila Mauricio Sivan AIR VALUE TE[employer]-CITY DISPATCHER Work Phone: [facility] Comment on above: Elevated bilirubin ( Primary Dx); Low vitamin B12 level; Generalized anxiety disorder Start: 10-17-[address] Ramila Quintanilla Goodridge Fa cility:[id number] Start: 09-28-2022 End: 09-28-2022 ambulatory MD FRANK GOFF Facility:[id number] Start: 09-28-2022 End: 09-28-2022 Emergency department patient visit Fatemeh Kraus MD Work Phone: [facility] Comment on above: Unspecified abdomina l pain; Unspecified acute appendicitis; Contact with and (suspected) exposure to covid-19; Nicotine dependence, other tobacco product, uncomplicated; Lower abdominal pain, unspecified; Low back pain, unspecified Start: 09-15-2022 AUDIT Ramila Livingstond Work Phone: [facility] Work Phone: Start: 09-14-[address] Ramila Finnegan Fa cility:[id number] Start: 09-14-2022 Office outpatient vi sit 15 minutes Ramila Livingstond Work Phone: [facility] Work Phone: Start: 08-02-2022 Rx Renewal Ramila Livingstond Work Phone: [facility] Work Phone: Start: 06-17-2022 AUDIT Ramila Martínez Sivan Work Phone: [facility] Work Phone: Start: 06-16-2022 Office outpatient vi sit 15 minutes Ramila Martínez Goodridge Work Phone: [facility] Work Phone: Start: 06-16-[address] Ramila Finnegan Fa cility:[id number] Start: 03-17-2022 Office outpatient ne w 45 minutes Ramila Martínez Sivan Work Phone: [facility] Work Phone: Start: 03-17-[address] Ramila Finnegan Fa cility:[id number] Start: 02-19-2021 End: 02-19-2021 Emergency department patient visit Delroy Aguirre [facility] Procedures Date Procedure Procedure Detail Performing Clinician Start: 11-08-2024 End: 11-08-2024 Urnls dip stick/tablet rgnt non-auto w/o micrscp Edy Marcum DO Work Phone: Start: 09-18-2024 POCT SARS-COV-2/FLU/ RSV PCR SYMPTOMATIC Delroy Jaime Raúl [facility] Work Phone: Start: 06-10-2024 IGP,APTIMA HPV,AGE GDLN Edy Marcum [employer] Work Phone: Start: 06-10-2024 Microscopic observat ion [Identifier] in Cervix by Cyto stain Delroy Turnerrhoda [facility] Work Phone: Start: 05-23-2023 Bacteria identified in Urine by Culture RAMILA FINNEGAN Start: 05-23-2023 MICROSCOPIC ONLY, URINE RAMILA FINNEGAN Start: 05-23-2023 URINALYSIS WITH REFL EX MICROSCOPIC RAMILA SIVAN Start: 04-07-2023 Cyanocobalamin vitamin b-12 RAMILA SIVAN Start: 04-07-2023 Hepatic function 200 0 panel - Serum or Plasma RAMILA FINNEGAN Start: 04-07-2023 URINALYSIS WITH REFL EX MICROSCOPIC RAMILA LIVINGSTOND Start: 09-28-2022 SURGICAL PATHOLOGY RESULTS Frank Goff MD Work Phone: Start: 09-28-2022 SARS-CoV-2 (COVID-19 ) RNA [Presence] in Respiratory specimen by CHERYL with probe detection Fatemeh Kraus MD Work Phone: Start: 09-28-2022 Ct abdomen & pelvis w/contrast material Fatemeh Kraus MD Work Phone: Start: 09-28-2022 Choriogonadotropin.b eta subunit [Units/volume] in Serum or Plasma Fatemeh Kraus MD Work Phone: Start: 09-28-2022 Comprehensive metabo lic panel Fatemeh Kraus MD Work Phone: Start: 09-28-2022 Lipase [Enzymatic activity/volume] in Serum or Plasma Fatemeh Kraus MD Work Phone: Start: 09-28-2022 Urinalysis complete W Reflex Culture panel - Urine Fatemeh Kraus MD Work Phone: Start: 07-29-2021 Microscopic observat ion [Identifier] in Cervix by Cyto stain Ramilalesia Finnegan [employer] VAL[employer] TE[employer]-CITY DISPATCHER Work Phone: Extraction of wisdom tooth Johnathan Martínez Sivan Work Phone: Plan of Treatment Date Care Activity Detail Author Start: 01-24-2048 Zoster Vaccines (1 o f 2) Zoster Vaccines (1 of 2) [facility] Start: 06-10-2027 Screening for malign ant neoplasm of cervix [facility] Start: 06-17-2025 End: 06-17-2025 Patient encounter procedure 06/17/2025 10:00 AM EST Office Visit [facility] [address] [place] [address] Edy Marcum, DO [address] [place], [place] [id number] [facility] Start: 12-10-2024 End: 12-10-2024 Patient encounter procedure 12/10/2024 2:50 PM EDT Routine [facility] [address] [place] [id number] Edy Marcum, DO [address] [place], [place] [id number] [facility] Start: 11-19-2024 End: 11-19-2024 Patient encounter procedure 11/19/2024 7:30 AM EDT Office Visit [facility] [address] [place] [address] Josr Martinez PA-C [address] [facility], [address] [place] [address] [facility] Start: 11-08-2024 End: 11-08-2025 ABO/Rh ABO/Rh Lab Routine Missed menses , unspecified gestational age Expected: 11/08/2024 (Approximate), Expires: 11/08/2025 [facility] Comment on above: Expected: 11/08/2024 (Approximate), Expires: 11/08/2025 Start: 11-08-2024 End: 11-08-2025 Blood type and Indirect antibody screen panel - Blood Type and screen Lab Routine Missed menses , unspecified gestational age Expected: 11/08/2024 (Approximate), Expires: 11/08/2025 [facility] Work Phone: Comment on above: Expected: 11/08/2024 (Approximate), Expires: 11/08/2025 Start: 11-08-2024 End: 11-08-2025 Drugs of abuse panel - Urine by Screen method Rapid drug screen, urine Lab Routine , unspecified gestational age Encounter for supervision of normal first in first trimester Expected: 11/08/2024 (Approximate), Expires: 11/08/2025 [facility] Comment on above: Expected: 11/08/2024 (Approximate), Expires: 11/08/2025 Start: 10-07-2024 End: 10-07-2024 Patient encounter procedure 10/07/2024 9:40 AM EDT Office Visit [facility] [address] [place] [phone] Edy Marcum, DO [address] [facility] [address] [place] [address] [facility] Start: 07-29-2024 Screening for malign ant neoplasm of cervix [facility] Start: 03-17-2024 COVID-19 Vaccine ( season) COVID-19 Vaccine ( season) [facility] Start: 03-17-2024 COVID-19 Vaccine ( season) COVID-19 Vaccine () [facility] Start: 03-17-2024 Influenza vaccination [facility] Start: 02-15-2024 Influenza vaccination Flu vaccine (# 1) [facility] Start: 09-27-2023 End: 09-27-2023 Telemedicine consultation with patient 09/27/2023 10:00 AM EDT Telemedicine [place] [id number] [place] [address] Ramila Finnegan, [employer] VAL[employer]CITY DISPATCHER [address] [facility] [place] [address] [facility] Start: 05-22-2023 End: 05-29-2023 Bacteria identified in Urine by Culture Urine Culture Microbiology Routine Burning with urination Expected: 05/22/2023 (Approximate), Expires: 05/29/2023 [facility] Work Phone: Comment on above: Expected: 05/22/2023 (Approximate), Expires: 05/29/2023 Start: 05-22-2023 End: 05-22-2024 Urinalysis complete panel - Urine Urinalysis with Reflex Microscopic Lab Routine Burning with urination Expected: 05/22/2023 (Approximate), Expires: 05/22/2024 [facility] [facility] Work Phone: Comment on above: Expected: 05/22/2023 (Approximate), Expires: 05/22/2024 Start: 03-21-2023 End: 03-21-2024 Cobalamin (Vitamin B12) [Mass/volume] in Serum or Plasma Vitamin B12 Lab Routine Low vitamin B12 level Expected: 03/21/2023 (Approximate), Expires: 03/21/2024 [facility] Work Phone: Comment on above: Expected: 03/21/2023 (Approximate), Expires: 03/21/2024 Start: 03-21-2023 End: 03-21-2024 Hepatic function 2000 panel - Serum or Plasma Hepatic function panel Lab Routine Elevated bilirubin Expected: 03/21/2023 (Approximate), Expires: 03/21/2024 [facility] Service Area Work Phone: Comment on above: Expected: 03/21/2023 (Approximate), Expires: 03/21/2024 Start: 03-21-2023 End: 03-21-2024 Urinalysis complete panel - Urine Urinalysis with Reflex Microscopic Lab Routine Elevated bilirubin Expected: 03/21/2023, Expires: 03/21/2024 [facility] Work Phone: Comment on above: Expected: 03/21/2023 , Expires: 03/21/2024 Start: 03-17-2023 COVID-19 Vaccine ( season) COVID-19 Vaccine ( season) [facility] Start: 03-17-2023 Influenza vaccination Influenza Vacc ine (#1) [facility] Start: 09-14-2022 FUV, Provider: Ramila Finnegan, Status: Pen, Time: 8:15 AM FUV, Provider: Ramila Finnegan, Status: Pen, Time: 8:15 AM [facility] Work Phone: Start: 06-16-2022 EPV, Provider: Ramila Finnegan, Status: Pen, Time: 8:15 AM EPV, Provider: Ramila Finnegan, Status: Pen, Time: 8:15 AM [facility] Work Phone: Start: 01-24-2020 DTaP/Tdap/Td Vaccine s (1 - Tdap) DTaP/Tdap/Td Vaccines (1 - Tdap) [facility] Start: 2019 Screening for malign ant neoplasm of cervix [facility] Start: 2017 DTaP/Tdap/Td vaccine (1 - Tdap) DTaP/Tdap/Td vaccine (1 - Tdap) [facility] Start: 2017 Hepatitis A Vaccines (1 of 2 - Risk 2-dose series) Hepatitis A Vaccines (1 of 2 - Risk 2-dose series) [facility] Start: 2017 Hepatitis B vaccine (1 of 3 - 19+ 3-dose series) Hepatitis B vaccine (1 of 3 - 19+ 3-dose series) [facility] Start: 2017 Hepatitis B Vaccines (1 of 3 - 19+ 3-dose series) Hepatitis B Vaccines (1 of 3 - 19+ 3-dose series) [facility] Start: 01-24-2016 Hepatitis C screening [facility] Start: 2013 HIV screening HIV screen [facility] Start: 2013 HPV vaccine (1 - 3-d ose series) HPV vaccine (1 - 3-dose series) [facility] Start: 2013 HPV Vaccines (1 - 3-dose series) HPV Vaccines (1 - 3-dose series) [facility] Start: 2011 Varicella vaccination Varicell a Vaccines (1 of 2 - 13+ 2-dose series) [facility] Start: 2011 Varicella vaccine (1 of 2 - 13+ 2-dose series) Varicella vaccine (1 of 2 - 13+ 2-dose series) [facility] Start: 2010 Depression Screen Depression Screen [facility] Start: 2009 HPV Vaccines (1 - 2-dose series) HPV Vaccines (1 - 2-dose series) [facility] Start: 1999 MMR Vaccines (1 of 1 - Standard series) MMR Vaccines (1 of 1 - Standard series) [facility] Start: 1999 Varicella vaccination Varicell a Vaccines (1 of 2 - 2-dose childhood series) [facility] Start: 1998 COVID-19 Vaccine (#1) COVID-19 Vacci ne (#1) [facility] Start: 1998 Hepatitis B Vaccines (1 of 3 - 3-dose series) Hepatitis B Vaccines (1 of 3 - 3-dose series) [facility] Start: 1998 HIV screening HIV Screening [facility] Start: 1998 Lipid panel Lipid Panel [facility] Start: 1998 Yearly Adult Physical Yearly Adult P hysical [facility] Bacteria identified in Urine by Culture Urine culture Microbiology Routine Missed menses Ordered: 11/08/2024 [facility] Comment on above: Ordered: 11/08/2024 CBC W Auto Different ial panel - Blood CBC and differential Lab Routine Missed menses , unspecified gestational age Ordered: 11/08/2024 [facility] Comment on above: Ordered: 11/08/2024 Cytology Cervical or vaginal smear or scraping study Pap Smear Pathology and Cytology Routine Well woman exam with routine gynecological exam Ordered: 06/10/2024 [facility] Work Phone: Comment on above: Ordered: 06/10/2024 Hemoglobin A1c/Hemoglobin.total in Blood Hemoglobin A1c Lab Routine Missed menses , unspecified gestational age Ordered: 11/08/2024 [facility] Comment on above: Ordered: 11/08/2024 Hepatitis B virus surface Ag [Presence] in Serum or Plasma by Immunoassay Hepatitis B surface antigen Lab Routine Missed menses , unspecified gestational age Ordered: 11/08/2024 [facility] Comment on above: Ordered: 11/08/2024 Hepatitis C virus Ab [Presence] in Serum or Plasma by Immunoassay Hepatitis C antibody Lab Routine Missed menses , unspecified gestational age Ordered: 11/08/2024 [facility] Comment on above: Ordered: 11/08/2024 HIV-1/HIV-2 antigen/antibody combination immunoassay HIV-1 and HIV-2 antibodies Lab Routine Missed menses , unspecified gestational age Ordered: 11/08/2024 [facility] Comment on above: Ordered: 11/08/2024 Reagin Ab [Presence] in Serum by RPR RPR Lab Routine Missed menses , unspecified gestational age Ordered: 11/08/2024 [facility] Comment on above: Ordered: 11/08/2024 Rubella antibody, IgG Rubella an tibody, IgG Lab Routine Missed menses , unspecified gestational age Ordered: 11/08/2024 [facility] Comment on above: Ordered: 11/08/2024 Immunizations Immunization Date Immunization Notes Care Provider Gin box 04-16-2020 influenza virus vaccine, unspecified formulation Edy MARCUM [facility] Dimitry Payers Date Payer Category Payer Unknown [id number] 2024 [facility] Shield BCBS [id number] 2024 [employer] [facility] Care [facility] Member Subscriber Plan / Payer (Effective 2024-Present) Name: Christ Palm Relation to Subscriber: Self Name: Christ Palm Payer ID: [id number] (NAIC) Type: Not on file Address: [address] [id number] 2024 Unknown [id number] 2022 Unknown 2021 Unknown [id number] 1998 Unknown [id number] [id number]. 2.1069 1998 Unknown [id number] 2.16840.1.215499.3.579. 2.356 1998 Unknown [id number] 2.16840.1.129713.3.579. 2.356 1998 Unknown [id number] 2.16840.1.646183.3.579. 2.356 1998 Unknown [id number] 2.16840.1.299427.3.579. 2.356 1998 Unknown [id number] 2.16840.1.295716.3.579. 2.1245 1998 Unknown [id number] 2.16840.1.493969.3.579. 2.124 1998 Unknown [id number] 2.16840.1.397816.3.579. 2.1243 1998 Unknown [id number] 2.16840.1.075141.3.579. 2.727 1998 Unknown [id number] 2.16.840.1.808475.3.579. 2.983 1998 Unknown [id number] 2.16.840.1.284018.3.579. 2.1259 1998 Unknown [id number] 2.16.840.1.914119.3.579. 2.1259 1998 Unknown [id number] 2.16.840.1.110548.3.579. 2.1259 1998 Unknown [id number] 2.16.840.1.207173.3.579. 2.1259 1998 Unknown [id number] 2.16.840.1.351628.3.579. 2.1244 1998 Unknown [id number] 2.16.840.1.032565.3.579. 2.1244 1998 Unknown [id number] [id number]. 2.1244 Social History Date Type Detail Facility [facility] Tobacco smoking consumption unknown [facility] Start: 05-22-2023 End: 11-24-2023 Does not have living will Does not have living will [facility] Work Phone: Start: 1998 Sex Assigned At Not on file [facility] Work Phone: Start: 05-22-2023 End: 11-24-2023 Gender identity Not on file [facility] Work Phone: Start: 05-04-2020 End: 05-22-2023 Tobacco smoking status NHIS Never smoked tobacco [facility] Work Phone: Start: 08-26-2021 End: 05-22-2023 Tobacco use and exposure Smokeless tobacco non-user [facility] Work Phone: Start: 11-14-2023 End: 09-18-2024 Exposure to SARS-CoV-2 (event) Not sure [facility] How hard is it for y ou to pay for the very basics like food, housing, medical care, and heating Not hard at all [employer] (I/We) worried char[employer]ner[employer] (my/our) food would run out before (I/we) got money to buy more. Never true [employer] Start: 1998 Sex assigned at Female [facility] Start: 01-09-2024 Gender identity Identifies as female gender (finding) [facility] Work Phone: Sexual Orientation [facility] Start: 10-28-2009 Sex Female (finding) [facility] Start: 09-29-2024 [facility] Clinical Notes 09-28-2022 to 11-08-2024 Nishi Lee MA - 11/08/2024 10:30 AM EDTMmeaghan Aguirre APRN-NAYA - 09/18/2024 3:20 PM Sherman Gr LPN - 06/10/2024 9:00 AM ESTPatient InstructionsPatient Instructions Note Date & Type Note Facility 11-08-2024 History of Presen t illness Narrative Reason for Appointment: Patient ID: Christ Walton is a 24 y.o. female who presents for Amenorrhea Patient presents today for a Nurse OB Intake appointment. Patient is 7w5d with a Estimated Date of Delivery: 06/22/25 OB History Para Term AB Living 1 SAB IAB Ectopic Multiple Live Births # Outcome Date GA Lbr Levon/2nd Weight Sex Type Anes PTL Lv 1 Current Current Medications: has a current medication list which includes the following prescription(s): w/o a vit-fe fum-fa and vitamin c. Medical History: Active Ambulatory Problems Diagnosis Date Noted No Active Ambulatory Problems Resolved Ambulatory Problems Diagnosis Date Noted No Resolved Ambulatory Problems No Additional Past Medical History No family history on file. Social History Tobacco Use Smoking status: Not on file Smokeless tobacco: Not on file Substance Use Topics Alcohol use: Not on file Drug use: Not on file History reviewed. No pertinent surgical history. No Known Allergies Vitals: Estimated body mass index is 27.87 kg/m as calculated from the following: Height as of this encounter: 5' 1 . Weight as of this encounter: 147 lb 8 oz. BP: 104/76 Patient's last menstrual period was 09/06/2024. Assessment/Plan Diagnoses and all orders for this visit: Missed menses - Type and screen; Future - ABO/Rh; Future - CBC and differential - Hemoglobin A1c - RPR - Rubella antibody, IgG - Hepatitis B surface antigen - Hepatitis C antibody - HIV-1 and HIV-2 antibodies - Urine culture - POCT , urine manually resulted - POCT urinalysis dipstick manually resulted , unspecified gestational age - Type and screen; Future - ABO/Rh; Future - CBC and differential - Hemoglobin A1c - RPR - Rubella antibody, IgG - Hepatitis B surface antigen - Hepatitis C antibody - HIV-1 and HIV-2 antibodies - Rapid drug screen, urine; Future Encounter for supervision of normal first in first trimester - Rapid drug screen, urine; Future Nurse Note: OB Intake: Patient presents today for first OB visit. Patients history has been reviewed in great detail including any potential risks. Patient signed consent forms and patient desires testing in both trimesters. Patient currently has no complaints and has been advised to drink 6-8 glasses of water a day, eat no raw or undercooked meat, and stay away from [facility]. Patient has also been advised to not change litter boxes and eat 6 small meals a day. Patient has been consulted regarding the do's and don'ts of . Patient was given labs and all questions and concerns were answered. Follow Up: Patient is to return in 4 weeks for routine OB appointment. Follow Up: Patient is to have labs drawn at directed and return to office for initial OB appointment with provider. Patient may call office as needed with any concerns or questions. Nurse Visit Completed by: Nishi Lee MA documented in this encounter [facility] 09-18-2024 History of Presen t illness Narrative 24 y.o. female presents for evaluation of URI. Symptoms including cough, congestion, body aches, malaise, and headache have been present for 1 days and refractory to OTC meds. No fever, chills, sore throat, rashes, ear pain, nausea, vomiting, abdominal pain, CP, or SOB. No exacerbating factors. No known COVID 19/flu exposure. Vitals: 09/18/24 1527 BP: 114/82 Pulse: 95 Resp: 16 Temp: 36.6 C (97.8 F) SpO2: 98% No Known Allergies Medication Documentation Review Audit Reviewed by FABI Steven (Nurse Practitioner) on 09/18/24 at 1612 Medication Order Taking? Sig Documenting Provider Last Dose Status ascorbic acid (Vitamin C) 1,000 mg tablet [id number] Yes Take 1 tablet (1,000 mg) by mouth once daily. Historical Provider, Active buPROPion SR (Wellbutrin SR) 150 mg 12 hr tablet [id number] Take 1 tablet (150 mg) by mouth once daily. Patient not taking: Reported on 09/18/2024 Josr Martinez PA-C Active busPIRone (Buspar) 5 mg tablet [id number] Take 1 tablet in AM and 2 tablets in PM Patient not taking: Reported on 09/18/2024 Josr Martinez PA-C Active glycopyrrolate (Robinul) 2 mg tablet [id number] Take 1 tablet (2 mg) by mouth 2 times a day. Patient not taking: Reported on 09/18/2024 Jsor Martinez PA-C Active metFORMIN XR 500 mg 24 hr tablet [id number] Yes Take 1 tablet (500 mg) by mouth. Historical Provider, Active norethindrone-e.estradioL-iron (,) 1.5 mg-30 mcg (21)/75 mg (7) tablet [id number] Take 1 tablet by mouth once daily. Patient not taking: Reported on 09/18/2024 Josr Martinez PA-C Active oseltamivir (Tamiflu) 75 mg capsule [id number] Take 1 capsule (75 mg) by mouth 2 times a day for 5 days. FABI Steven Active History reviewed. No pertinent past medical history. Past Surgical History: Procedure Laterality Date APPENDECTOMY OTHER SURGICAL HISTORY 03/17/2022 [place] tooth extraction ROS See HPI Physical Exam Vitals and nursing note reviewed. Constitutional: Appearance: She is ill-appearing (mildly). HENT: Head: Normocephalic and atraumatic. Right Ear: Tympanic membrane and ear canal normal. Left Ear: Tympanic membrane and ear canal normal. Nose: Congestion present. Mouth/Throat: Mouth: Mucous membranes are moist. Pharynx: Oropharynx is clear. Eyes: Extraocular Movements: Extraocular movements intact. Conjunctiva/sclera: Conjunctivae normal. Pupils: Pupils are equal, round, and reactive to light. Cardiovascular: Rate and Rhythm: Normal rate. Pulmonary: Effort: Pulmonary effort is normal. Breath sounds: Normal breath sounds. Skin: General: Skin is warm and dry. Neurological: General: No focal deficit present. Mental Status: She is alert and oriented to person, place, and time. Psychiatric: Mood and Affect: Mood normal. Behavior: Behavior normal. Recent Results (from the past hour) POCT SARS-COV-2/FLU/RSV PCR SYMPTOMATIC manually resulted Collection Time: 09/18/24 4:10 PM Result Value Ref Range POC Coronavirus 2019, PCR Not Detected Not Detected POC Flu A Result Detected (A) Not Detected POC Flu B Result Not Detected Not Detected POC RSV PCR Not Detected Not Detected Assessment/Plan/MDM Christ was seen today for flu symptoms. Diagnoses and all orders for this visit: Influenza A (Primary) - oseltamivir (Tamiflu) 75 mg capsule; Take 1 capsule (75 mg) by mouth 2 times a day for 5 days. Acute upper respiratory infection - POCT SARS-COV-2/FLU/RSV PCR SYMPTOMATIC manually resulted Encouraged pt to use otc cold remedies PRN, push PO fluids and rest. Patient's clinical presentation is otherwise unremarkable at this time. Patient is discharged with instructions to follow-up with primary care or seek emergency medical attention for worsening symptoms or any new concerns. I did personally review Christ's past medical history, surgical history, social history, as well as family history (when relevant). In this case, I also oversaw the her drug management by reviewing her medication list, allergy list, as well as the medications that I prescribed during the UC course and/or recommended as an out-patient (including possible OTC medications such as acetaminophen, NSAIDs , etc). After reviewing the items above, I did look at previous medical documentation, such as recent hospitalizations, office visits, and/or recent consultations with PCP/specialist. SDOH: Another factor that I considered in Christ's care was her Social Determinants of Health (SDOH). During this UC encounter, she did not have social determinants of health. Those SDOH influencing Christ's care are: none Delroy Aguirre CNP [facility] [phone] documented in this encounter [facility] Work Phone: 06-10-2024 History of Presen t illness Narrative Reason for Appointment: Patient ID: Christ Walton is a 24 y.o. female who presents for Gynecologic Exam Patient presents today for Annual Exam. MEDICATIONS Current Outpatient Medications Medication Instructions glycopyrrolate (ROBINUL) 2 mg, 2 times daily vitamin C 1,000 mg, Oral, Daily RT ALLERGIES No Known Allergies PROBLEMS Active Ambulatory Problems Diagnosis Date Noted No Active Ambulatory Problems Resolved Ambulatory Problems Diagnosis Date Noted No Resolved Ambulatory Problems No Additional Past Medical History HISTORY PAST MEDICAL HISTORY SOCIAL HISTORY No past medical history on file. Social History Tobacco Use Smoking status: Not on file Smokeless tobacco: Not on file Substance Use Topics Alcohol use: Not on file Drug use: Not on file FAMILY HISTORY No family history on file. SURGICAL HISTORY No past surgical history on file. REVIEW OF SYSTEMS Review of Systems: Review of Systems Constitutional: Negative. HENT: Negative. Eyes: Negative. Respiratory: Negative. Cardiovascular: Negative. Gastrointestinal: Negative. Genitourinary: Negative. Musculoskeletal: Negative. Skin: Negative. Neurological: Negative. All other systems reviewed and are negative. Hematological: Negative. Endocrine: Negative. Allergic/Immunologic: Negative. OBJECTIVE Objective: Physical Exam Constitutional: Appearance: Normal appearance. She is well-developed. Genitourinary: Vulva normal. Breasts: Breasts are soft. Right: Normal. Left: Normal. Cardiovascular: Rate and Rhythm: Normal rate and regular rhythm. Pulmonary: Effort: Pulmonary effort is normal. Breath sounds: Normal breath sounds. Abdominal: General: Bowel sounds are normal. There is no distension. Palpations: Abdomen is soft. Tenderness: There is no abdominal tenderness. There is no guarding or rebound. Musculoskeletal: General: No swelling. Normal range of motion. Right lower leg: No edema. Left lower leg: No edema. Neurological: Mental Status: She is alert and oriented to person, place, and time. Skin: General: Skin is warm and dry. Psychiatric: Mood and Affect: Mood normal. Behavior: Behavior normal. Vitals and nursing note reviewed. Exam conducted with a faucets assembler present. Vitals: There is no height or weight on file to calculate BMI. BP: 120/70 Patient's last menstrual period was 06/06/2024 (approximate). ASSESSMENT & PLAN ICD-10-CM 1. Well woman exam with routine gynecological exam Z01.419 Pap Smear Annual Exam: Patient presents today for an annual exam. Patient states she is doing well and has no complaints. Discussed fertility with pt in detail. Advised timing up intercourse. Discussed adding metformin. Rx faxed to pharmacy. Pap was obtained without difficulty. No orders of the defined types were placed in this encounter. Follow Up: Patient is to return in one year for annual unless needed otherwise. Documented by Brigitte Gr LPN on behalf of: Edy Marcum DO documented in this encounter [facility] 01-09-2024 Instructions Brennon Burt MD - 01/09/2024 2:50 PM EDT Diarrhea-- considered Traveler's diarrhea vs possibility of C. Diff from augmentin she was on prior to wedding for sinusitis Will treat with azithromycin 500mg every day x 3d to treat if TD-- Pt to follow up if diarrhea persists and we will get a stool culture to rule out C. diff Fluids to include electrolytes Handwashing to prevent spread Please send me a [employer] message if you have any questions or concerns. FOR NON URGENT questions only. Allow up to 72 hours for response. If you have prescription issues or other questions you can email Natacha Maki Digital Health Coordinator, at Rest and drink plenty of fluids Tylenol and or motrin as needed for pain and fever (unless you have been told not to take these because of your personal medical history) Discussed options and precautions (complaint specific and may include) Viral versus bacterial infection; use of medications; possible side effects; appropriate jfkk-rfe-dklixxy medications; possible complications and /or when to follow-up. Follow-up in 1 to 2 days if not improving. Follow-up immediately if symptoms worsen. All red flags requiring in person care were discussed. All patient's questions were answered. To connect with a new PCP please visit [email or web address] or call [phone] If experiencing any severe or worsening symptoms including but not limited to lethargy / chest pain / weakness / dizziness / difficulty breathing please call 911 or go to the emergency department for immediate care! Limitations to telemedicine include inability to do a complete and accurate physical exam. Any concerns regarding this were conveyed with the patient and in person follow-up recommended if patient nature of illness does not progress as anticipated during this visit. CDC updated Respiratory Infection guidelines: When you have a respiratory virus, stay home and away from others (including people you live with who are not sick) Symptoms can include fever, chills, fatigue, cough, runny nose, and headache (and others). You can go back to your normal activities when, for at least 24 hours, BOTH are true: 1) Your symptoms are getting better overall 2) You have not had a fever (and are not using fever-reducing medication). When you go back to your normal activities, take added precaution over the next 5 days, such as taking additional steps for millstone cleaner air, hygiene, masks, physical distancing, and/or testing when you will be around other people indoors. Keep in mind that you may still be able to spread the virus that made you sick, even if you are feeling better. You are likely to be less contagious at this time, depending on factors like how long you were sick or how sick you were. If you develop a fever or you start to feel worse after you have gone back to normal activities, stay home and away from others again until, for at least 24 hours, both are true: your symptoms are improving overall, and you have not had a fever (and are not using fever-reducing medication). Then take added precaution for the next 5 days. If you never had symptoms but tested positive for a respiratory virus?, you may be contagious. For the next 5 days: take added precaution, such as taking additional steps for mill[place] cleaner air, hygiene, masks, physical distancing, and/or testing when you will be around other people indoors. This is especially important to protect people with factors that increase their risk of severe illness from respiratory viruses. Avoid immunocompromised, elderly, women, infants etc Have a low threshold for in person evaluation if your symptoms worsen. documented in this encounter [facility] Work Phone: 11-24-2023 History of Presen t illness Narrative Subjective Patient ID: Christ Palm is a 23 y.o. female who presents for pt here for med check . HPI ANXIETY/DEPRESSION: Compliant with Wellbutrin and Buspar, CHRIS 3/PHQ HYPERHIDROSIS: Stable on Glycopyrrolate, no SE. CONTROL: Menstrual is regular. LOW D: Taking D daily, stable. LOW B12: Taking daily, stable. Will have women's care later this year. Getting in December. Review of Systems Constitutional: Negative. Respiratory: Negative. Cardiovascular: Negative. Gastrointestinal: Negative. Objective BP 118/70 Pulse 63 Ht 1.588 m (5' 2.5 ) Wt 65.3 kg (144 lb) SpO2 97% BMI 25.92 kg/m Physical Exam Constitutional: General: She is not in acute distress. Appearance: Normal appearance. She is not ill-appearing. HENT: Head: Normocephalic and atraumatic. Eyes: Extraocular Movements: Extraocular movements intact. Conjunctiva/sclera: Conjunctivae normal. Cardiovascular: Rate and Rhythm: Normal rate. Pulmonary: Effort: Pulmonary effort is normal. Abdominal: General: There is no distension. Musculoskeletal: General: Normal range of motion. Cervical back: Normal range of motion. Skin: General: Skin is warm and dry. Neurological: General: No focal deficit present. Mental Status: She is alert and oriented to person, place, and time. Psychiatric: Mood and Affect: Mood normal. Behavior: Behavior normal. Thought Content: Thought content normal. Judgment: Judgment normal. Assessment/Plan Chronic conditions stable. No medication changes today. Would not blood work. Follow up 1 year or sooner prn. documented in this encounter [facility] Work Phone: 05-22-2023 History of Presen t illness Narrative Christ Palm is a 23 y.o. female who presents virtually today for a sick visit Pt location in [place] and consent obtained. Telemedicine appropriate evaluation completed. Appropriate physical exam done. Chief Complaint Patient presents with burning with urination Symptoms: BURNING WITH URINATION, ODOROUS URINE, MIDLINE BACK PAIN Pt denies N/V, fever, chills Review of Systems All 13 systems were reviewed and are within normal limits except positive and pertinent negative responses which are noted below or in HPI. Objective Vitals: There were no vitals taken for this visit. Physical Exam Pulmonary: Effort: Pulmonary effort is normal. Neurological: Mental Status: She is alert and oriented to person, place, and time. Psychiatric: Thought Content: Thought content normal. Assessment/Plan Problem List Items Addressed This Visit None Visit Diagnoses Codes Burning with urination - Primary R30.0 Relevant Medications nitrofurantoin, macrocrystal-monohydrate, (Macrobid) 100 mg capsule Other Relevant Orders Urinalysis with Reflex Microscopic Urine Culture documented in this encounter [facility] Work Phone: 05-22-2023 Instructions FABI Interiano - 05/22/2023 7:50 PM EST Thank you for seeing me today. It was a pleasure to meet you! #BURNING W/URINATION, MALODOROUS URINE UA/CULTURE ORDERED; PLEASE GIVE SPECIMEN JENNIFER Rx Macrobid x 5 days, do not begin until you give urine specimen Drink at least 64 oz water daily Avoid caffeine F/U WITH PCP documented in this encounter [facility] Work Phone: 03-21-2023 History of Presen t illness Narrative Subjective Patient ID: Christ Palm is a 23 y.o. female who presents for Anxiety. Anxiety Patient is here for evaluation of anxiety. She has the following anxiety symptoms: palpitations. Onset of symptoms was approximately recently- sporadic. Symptoms have been controlled since that time. She denies current suicidal and homicidal ideation. Possible organic causes contributing are: nutritional. Risk factors: none Previous treatment includes medication BuSpar and Wellbutrin. She complains of the following medication side effects: none. Patient had surgery in 09/2022 for remove appendix related to ASB pain/appendicitis. At that time vitamin B12 lab was low and serum bilirubin elevated as well as urobilinuria. She reports decrease in work stress, is planning her wedding for December of 2023. Is now working in [place] She does report CP that happens sporadically, HR was noted to be 160's on apple watch at the time however resolved quickly on its own Denies SOB, dizziness, visual changes or difficulty breathing. Review of Systems Constitutional: Negative for activity change, fatigue and fever. HENT: Negative. Eyes: Negative for visual disturbance. Respiratory: Negative for chest tightness and shortness of breath. Cardiovascular: Negative for chest pain, palpitations and leg swelling. Gastrointestinal: Negative for abdominal pain, constipation, diarrhea, nausea and vomiting. Genitourinary: Negative for decreased urine volume, difficulty urinating and hematuria. Musculoskeletal: Negative for arthralgias and myalgias. Neurological: Negative for dizziness, light-headedness and headaches. Objective There were no vitals taken for this visit. Physical Exam Constitutional: Appearance: Normal appearance. She is normal weight. Comments: Unable to perform complete physical exam due to virtual visit, patient was visualized on interactive video. Pulmonary: Effort: Pulmonary effort is normal. Neurological: Mental Status: She is alert and oriented to person, place, and time. Assessment/Plan Diagnoses and all orders for this visit: Elevated bilirubin - Hepatic function panel; Future - Urinalysis with Reflex Microscopic; Future - Follow up on lab from 09/2022 Low vitamin B12 level - Vitamin B12; Future -Continue taking OTC vitamin B-complex Generalized anxiety disorder - busPIRone (Buspar) 5 mg tablet; Take 1 tablet in AM and 2 tablets in PM - buPROPion SR (Wellbutrin SR) 150 mg 12 hr tablet; Take 1 tablet (150 mg) by mouth once daily. -Chronic controlled on current treatment Follow up in 6 months or sooner if needed documented in this encounter [facility] Work Phone: 09-28-2022 Note Post Operative Note: PreOp Diagnosis: Acute appendicitis Post-Procedure Diagnosis: Acute appendicitis Procedure: Laparoscopic appendectomy Surgeon: Frank Goff Resident/Fellow/Other Verifying Machine Operator: n/a Anesthesia: General Estimated Blood Loss (mL): 10cc Specimen: yes. Appendix Complications: None Findings: Early acute appendicitis. Patient Returned To/Condition: PACU / Stable Operative Report Dictated: Dictation: not applicable - note contains Operative Report Operative Report: Indication: Patient is a 22-year-old female who presented with suprapubic and right lower quadrant abdominal pain. CT scan showed a fluid filled appendix with wall enhancement. Risks and benefits of appendectomy were discussed and the patient was agreeable to proceed with surgery. Procedure: The patient was brought to the operating room and placed in supine position with left arm tucked. General anesthesia was induced. The patient's abdomen was prepped and draped. A Veress needle was placed in the left upper quadrant through which the abdomen was insufflated. An infraumbilical incision was created and a 5mm optical trocar was introduced. There was no evidence of injury at the trocar site or Veress needle site. The camera was changed to a 30 degree scope. The patient was placed in Trendelenburg position. A 12mm left lower quadrant and 5mm suprapubic port were placed under direct visualization after local anesthetic infiltration. The patient was rotated to the left. The small intestine was swept inferiorly and medially exposing the cecum. The appendix was identified and retracted. It was a very long appendix with some inflammatory changes at the distal tip. A window was created in the base of the mesentery using blunt dissection. The base of the appendix was transected with a blue load of an Endo RODNEY stapler. The mesentery was then transected with a white load of the Endo RODNEY stapler. There was a little oozing from the mesenteric staple line and hemostasis was obtained with cautery. The appendix was removed via Endo Catch bag and the 12mm port was closed with 0 Vicryl on a laparoscopic suture passer. Skin incisions were closed with 4-0 Vicryl and steri strips. The patient tolerated the procedure well, was extubated and transferred to PACU in stable condition. Electronic Signatures: Frank Goff) (Signed 28-Sep-2022 18:49) Authored: Post Operative Note, Note Completion Last Updated: 28-Sep-2022 18:49 by Frank Goff) [facility] 09-28-2022 Note History of Present I llness: /Lactating: Are You no (1) Are You Currently Breastfeedingno (1) Admission Reason: Acute appendicitis HPI: CHRIST PALM is a 22 year old Female who presents to the emergency department with lower abdominal pain. Pain is located in the suprapubic region and right lower quadrant. It woke her from sleep early this morning. She tried to make herself vomit but was unable to. She denies any nausea. She does not have much of an appetite. Pain has persisted throughout the day. She denies ever having similar pain in the past. It is a little worse with movement. She has no known medical issues and has no previous abdominal surgery. She has no family history of inflammatory bowel disease or colon or rectal cancer. She normally has bowel movements every other day. She had a bowel movement this morning. In the emergency department, WBC is 10.7 with a slight neutrophil shift. CT scan of the abdomen and pelvis showed a fluid-filled appendix with mild wall enhancement and subtle periappendiceal inflammatory changes. Family History: Family History: Medical history: None Surgical history: No previous abdominal surgery Family History: No family history of colon or rectal cancer or inflammatory bowel disease. Social History: Non-smoker, although she vapes. Denies alcohol and drug use. ROS: Constitutional: no fever, sweats, and chills Cardiovascular: No chest pain Respiratory: No cough or shortness of breath Gastrointestinal: + Right lower quadrant and suprapubic abdominal pain, decreased appetite. No vomiting or diarrhea. Genitourinary: no dysuria Musculoskeletal: no weakness or swelling Integumentary: no rashes Neurological: no confusion Endocrine: no heat or cold intolerance Heme/Lymph: no easy bruising or bleeding Allergies: No Known Allergies: Medications Prior to Admission: Admission Medication Reconciliation has not been completed for this patient. Objective: Objective Information: T PRBPMAPSpO2 [id number]/7198% Date/Time09/28 7:5509/28 13: 13: 13: 13:00 Range(36.3C - 36.3C ) (92 - 119 ) (16 - 18 ) (100 - 130 )/ (71 - 88 ) (97% - 100% ) Pain reported at 09/28 15:15: 2 = Mild Physical Exam by System: Constitutional: NAD, lying supine in bed, accompanied by her fianc Eyes: no scleral icterus Respiratory/Thorax: no labored breathing, on room air Cardiovascular: NSR Gastrointestinal: soft, non-distended, focally tender to palpation in the right lower quadrant with Rovsing sign, no surgical scars although she does have a supraumbilical Scar from previous piercing and tattoo in the left upper quadrant. Musculoskeletal: full range of motion Extremities: no peripheral edema Neurological: alert, oriented x3 Psychological: normal affect Skin: no jaundice Recent Lab Results: Results: CBC: 09/28/2022 08:34 \ Hgb / \ 13.7 / WBC Plt 10.7 257 / Hct \ / 40.7 \ RBC: 4.51 MCV: 90 Neutrophil %: 85.3 CMP: 09/28/2022 08:34 NA+ Cl- BUN / 136 104 8 / - Glucose 108 H K+ HCO3- Creat \ 3.7 24 0.89 \ \ T Bili / \ 1.6 H / AST x ---- x ALT 28 x ---- x 21 / Alk P \ / 47 \ Calcium : 9.4 Anion Gap : 12 Albumin : 4.4 T Protein : 6.9 Radiology Results: Results: I have reviewed this radiology result: Impression: Fluid-filled appendix with mild wall enhancement though no appendiceal dilatation or obvious wall thickening. There may be subtle periappendiceal infiltration. Early changes of appendicitis can not be excluded should be correlated with localizing right lower quadrant pain. The remainder of the abdomen and pelvis is unremarkable. CT Abdomen and Pelvis with IV Contrast [Sep 28 2022 10:06AM] Assessment and Plan: Assessment: Ms. Palm is a 22-year-old female with early acute appendicitis. Risks, benefits and alternatives of laparoscopic appendectomy were discussed with the patient. This included risk of bleeding, infection, viscous injury, conversion to an open procedure, post-operative abscess, possible need for subsequent interventions. We discussed the possibility of a negative laparotomy in which we will remove the appendix regardless but may result in non-resolution of her pain. We discussed the alternative of a watchful approach with low threshold to return to the ED if any worsening, given that the CT scan was equivocal. However, I do think this is a very early acute appendicitis and patient would prefer to just proceed with surgery. Anticipate discharge home following surgery this evening. She will follow up via phone call on 10/17/22 at noon. Electronic Signatures: Frank Goff) (Signed 28-Sep-2022 17:48) Authored: History of Present Illness, Comorbidities, Family History, Allergies, Medications Nikky (more content not included)... [facility] 09-28-2022 Miscellaneous Notes Post Operative Note: PreOp Diagnosis: Acute appendicitis Post-Procedure Diagnosis: Acute appendicitis Procedure: Laparoscopic appendectomy Surgeon: Frank Goff Resident/Fellow/Other Verifying Machine Operator: n/a Anesthesia: General Estimated Blood Loss (mL): 10cc Specimen: yes. Appendix Complications: None Findings: Early acute appendicitis. Patient Returned To/Condition: PACU / Stable Operative Report Dictated: Dictation: not applicable - note contains Operative Report Operative Report: Indication: Patient is a 22-year-old female who presented with suprapubic and right lower quadrant abdominal pain. CT scan showed a fluid filled appendix with wall enhancement. Risks and benefits of appendectomy were discussed and the patient was agreeable to proceed with surgery. Procedure: The patient was brought to the operating room and placed in supine position with left arm tucked. General anesthesia was induced. The patient's abdomen was prepped and draped. A Veress needle was placed in the left upper quadrant through which the abdomen was insufflated. An infraumbilical incision was created and a 5mm optical trocar was introduced. There was no evidence of injury at the trocar site or Veress needle site. The camera was changed to a 30 degree scope. The patient was placed in Trendelenburg position. A 12mm left lower quadrant and 5mm suprapubic port were placed under direct visualization after local anesthetic infiltration. The patient was rotated to the left. The small intestine was swept inferiorly and medially exposing the cecum. The appendix was identified and retracted. It was a very long appendix with some inflammatory changes at the distal tip. A window was created in the base of the mesentery using blunt dissection. The base of the appendix was transected with a blue load of an Endo RODNEY stapler. The mesentery was then transected with a white load of the Endo RODNEY stapler. There was a little oozing from the mesenteric staple line and hemostasis was obtained with cautery. The appendix was removed via Endo Catch bag and the 12mm port was closed with 0 Vicryl on a laparoscopic suture passer. Skin incisions were closed with 4-0 Vicryl and steri strips. The patient tolerated the procedure well, was extubated and transferred to PACU in stable condition. Electronic Signatures: Frank Goff) (Signed 28-Sep-2022 18:49) Authored: Post Operative Note, Note Completion Last Updated: 28-Sep-2022 18:49 by Frank Goff) documented in this encounter [facility] Work Phone: 09-28-2022 Note Formatting of this n ote is different from the original. Post Operative Note: PreOp Diagnosis: Acute appendicitis Post-Procedure Diagnosis: Acute appendicitis Procedure: Laparoscopic appendectomy Surgeon: Frank Goff Resident/Fellow/Other Verifying Machine Operator: n/a Anesthesia: General Estimated Blood Loss (mL): 10cc Specimen: yes. Appendix Complications: None Findings: Early acute appendicitis. Patient Returned To/Condition: PACU / Stable Operative Report Dictated: Dictation: not applicable - note contains Operative Report Operative Report: Indication: Patient is a 22-year-old female who presented with suprapubic and right lower quadrant abdominal pain. CT scan showed a fluid filled appendix with wall enhancement. Risks and benefits of appendectomy were discussed and the patient was agreeable to proceed with surgery. Procedure: The patient was brought to the operating room and placed in supine position with left arm tucked. General anesthesia was induced. The patient's abdomen was prepped and draped. A Veress needle was placed in the left upper quadrant through which the abdomen was insufflated. An infraumbilical incision was created and a 5mm optical trocar was introduced. There was no evidence of injury at the trocar site or Veress needle site. The camera was changed to a 30 degree scope. The patient was placed in Trendelenburg position. A 12mm left lower quadrant and 5mm suprapubic port were placed under direct visualization after local anesthetic infiltration. The patient was rotated to the left. The small intestine was swept inferiorly and medially exposing the cecum. The appendix was identified and retracted. It was a very long appendix with some inflammatory changes at the distal tip. A window was created in the base of the mesentery using blunt dissection. The base of the appendix was transected with a blue load of an Endo RODNEY stapler. The mesentery was then transected with a white load of the Endo RODNEY stapler. There was a little oozing from the mesenteric staple line and hemostasis was obtained with cautery. The appendix was removed via Endo Catch bag and the 12mm port was closed with 0 Vicryl on a laparoscopic suture passer. Skin incisions were closed with 4-0 Vicryl and steri strips. The patient tolerated the procedure well, was extubated and transferred to PACU in stable condition. Electronic Signatures: Frank Goff) (Signed 28-Sep-2022 18:49) Authored: Post Operative Note, Note Completion Last Updated: 28-Sep-2022 18:49 by Frank Goff) [facility] Work Phone: 09-28-2022 History and physical note History of Present Illness: /Lactating: Are You no (1) Are You Currently no (1) Admission Reason: Acute appendicitis HPI: CHRIST PALM is a 22 year old Female who presents to the emergency department with lower abdominal pain. Pain is located in the suprapubic region and right lower quadrant. It woke her from sleep early this morning. She tried to make herself vomit but was unable to. She denies any nausea. She does not have much of an appetite. Pain has persisted throughout the day. She denies ever having similar pain in the past. It is a little worse with movement. She has no known medical issues and has no previous abdominal surgery. She has no family history of inflammatory bowel disease or colon or rectal cancer. She normally has bowel movements every other day. She had a bowel movement this morning. In the emergency department, WBC is 10.7 with a slight neutrophil shift. CT scan of the abdomen and pelvis showed a fluid-filled appendix with mild wall enhancement and subtle periappendiceal inflammatory changes. Family History: Family History: Medical history: None Surgical history: No previous abdominal surgery Family History: No family history of colon or rectal cancer or inflammatory bowel disease. Social History: Non-smoker, although she vapes. Denies alcohol and drug use. ROS: Constitutional: no fever, sweats, and chills Cardiovascular: No chest pain Respiratory: No cough or shortness of breath Gastrointestinal: + Right lower quadrant and suprapubic abdominal pain, decreased appetite. No vomiting or diarrhea. Genitourinary: no dysuria Musculoskeletal: no weakness or swelling Integumentary: no rashes Neurological: no confusion Endocrine: no heat or cold intolerance Heme/Lymph: no easy bruising or bleeding Allergies: No Known Allergies : Medications Prior to Admission: Admission Medication Reconciliation has not been completed for this patient. Objective: Objective Information: T P R BP MAP SpO2 Value 36.3 92 16 112/71 98% Date/Time 09/28 7:55 09/28 13:00 09/28 13:00 09/28 13:00 09/28 13:00 Range (36.3C - 36.3C ) (92 - 119 ) (16 - 18 ) (100 - 130 )/ (71 - 88 ) (97% - 100% ) Pain reported at 09/28 15:15: 2 = Mild Physical Exam by System: Constitutional: NAD, lying supine in bed, accompanied by her fianc Eyes: no scleral icterus Respiratory/Thorax: no labored breathing, on room air Cardiovascular: NSR Gastrointestinal: soft, non-distended, focally tender to palpation in the right lower quadrant with Rovsing sign, no surgical scars although she does have a supraumbilical Scar from previous piercing and tattoo in the left upper quadrant. Musculoskeletal: full range of motion Extremities: no peripheral edema Neurological: alert, oriented x3 Psychological: normal affect Skin: no jaundice Recent Lab Results: Results: CBC: 09/28/2022 08:34 \ Hgb / \ 13.7 / WBC Plt 10.7 257 / Hct \ / 40.7 \ RBC: 4.51 MCV: 90 Neutrophil %: 85.3 CMP: 09/28/2022 08:34 NA+ Cl- BUN / 136 104 8 / - Glucose 108 H K+ HCO3- Creat \ 3.7 24 0.89 \ \ T Bili / \ 1.6 H / AST x ---- x ALT 28 x ---- x 21 / Alk P \ / 47 \ Calcium : 9.4 Anion Gap : 12 Albumin : 4.4 T Protein : 6.9 Radiology Results: Results: I have reviewed this radiology result: Impression: Fluid-filled appendix with mild wall enhancement though no appendiceal dilatation or obvious wall thickening. There may be subtle periappendiceal infiltration. Early changes of appendicitis can not be excluded should be correlated with localizing right lower quadrant pain. The remainder of the abdomen and pelvis is unremarkable. CT Abdomen and Pelvis with IV Contrast [Sep 28 2022 10:06AM] Assessment and Plan: Assessment: Ms. Palm is a 22-year-old female with early acute appendicitis. Risks, benefits and alternatives of laparoscopic appendectomy were discussed with the patient. This included risk of bleeding, infection, viscous injury, conversion to an open procedure, post-operative abscess, possible need for subsequent interventions. We discussed the possibility of a negative laparotomy in which we will remove the appendix regardless but may result in non-resolution of her pain. We discussed the alternative of a watchful approach with low threshold to return to the ED if any worsening, given that the CT scan was equivocal. However, I do think this is a very early acute appendicitis and patient would prefer to just proceed with surgery. Anticipate discharge home following surgery this evening. She will follow up via phone call on 10/17/22 at noon. Electronic Signatures: Frank Goff) (Signed 28-Sep-2022 17:48) Authored: History of Present Illness, Comorbidities, Family History, Allergies, Medications Prior to Admission, Objective, Assessment and Plan, Note Completion Last Updated: 28-Sep-2022 17:48 by Frank Goff) References: 1. Data Referenced From Triage - ED 28-Sep-2022 07:55 [facility] Work Phone: 09-28-2022 History and physical note History of Present Illness: /Lactating: Are You no (1) Are You Currently no (1) Admission Reason: Acute appendicitis HPI: CHRIST PALM is a 22 year old Female who presents to the emergency department with lower abdominal pain. Pain is located in the suprapubic region and right lower quadrant. It woke her from sleep early this morning. She tried to make herself vomit but was unable to. She denies any nausea. She does not have much of an appetite. Pain has persisted throughout the day. She denies ever having similar pain in the past. It is a little worse with movement. She has no known medical issues and has no previous abdominal surgery. She has no family history of inflammatory bowel disease or colon or rectal cancer. She normally has bowel movements every other day. She had a bowel movement this morning. In the emergency department, WBC is 10.7 with a slight neutrophil shift. CT scan of the abdomen and pelvis showed a fluid-filled appendix with mild wall enhancement and subtle periappendiceal inflammatory changes. Family History: Family History: Medical history: None Surgical history: No previous abdominal surgery Family History: No family history of colon or rectal cancer or inflammatory bowel disease. Social History: Non-smoker, although she vapes. Denies alcohol and drug use. ROS: Constitutional: no fever, sweats, and chills Cardiovascular: No chest pain Respiratory: No cough or shortness of breath Gastrointestinal: + Right lower quadrant and suprapubic abdominal pain, decreased appetite. No vomiting or diarrhea. Genitourinary: no dysuria Musculoskeletal: no weakness or swelling Integumentary: no rashes Neurological: no confusion Endocrine: no heat or cold intolerance Heme/Lymph: no easy bruising or bleeding Allergies: No Known Allergies : Medications Prior to Admission: Admission Medication Reconciliation has not been completed for this patient. Objective: Objective Information: T P R BP MAP SpO2 Value 36.3 92 16 112/71 98% Date/Time 09/28 7:55 09/28 13:00 09/28 13:00 09/28 13:00 09/28 13:00 Range (36.3C - 36.3C ) (92 - 119 ) (16 - 18 ) (100 - 130 )/ (71 - 88 ) (97% - 100% ) Pain reported at 09/28 15:15: 2 = Mild Physical Exam by System: Constitutional: NAD, lying supine in bed, accompanied by her fianc Eyes: no scleral icterus Respiratory/Thorax: no labored breathing, on room air Cardiovascular: NSR Gastrointestinal: soft, non-distended, focally tender to palpation in the right lower quadrant with Rovsing sign, no surgical scars although she does have a supraumbilical Scar from previous piercing and tattoo in the left upper quadrant. Musculoskeletal: full range of motion Extremities: no peripheral edema Neurological: alert, oriented x3 Psychological: normal affect Skin: no jaundice Recent Lab Results: Results: CBC: 09/28/2022 08:34 \ Hgb / \ 13.7 / WBC Plt 10.7 257 / Hct \ / 40.7 \ RBC: 4.51 MCV: 90 Neutrophil %: 85.3 CMP: 09/28/2022 08:34 NA+ Cl- BUN / 136 104 8 / - Glucose 108 H K+ HCO3- Creat \ 3.7 24 0.89 \ \ T Bili / \ 1.6 H / AST x ---- x ALT 28 x ---- x 21 / Alk P \ / 47 \ Calcium : 9.4 Anion Gap : 12 Albumin : 4.4 T Protein : 6.9 Radiology Results: Results: I have reviewed this radiology result: Impression: Fluid-filled appendix with mild wall enhancement though no appendiceal dilatation or obvious wall thickening. There may be subtle periappendiceal infiltration. Early changes of appendicitis can not be excluded should be correlated with localizing right lower quadrant pain. The remainder of the abdomen and pelvis is unremarkable. CT Abdomen and Pelvis with IV Contrast [Sep 28 2022 10:06AM] Assessment and Plan: Assessment: Ms. Palm is a 22-year-old female with early acute appendicitis. Risks, benefits and alternatives of laparoscopic appendectomy were discussed with the patient. This included risk of bleeding, infection, viscous injury, conversion to an open procedure, post-operative abscess, possible need for subsequent interventions. We discussed the possibility of a negative laparotomy in which we will remove the appendix regardless but may result in non-resolution of her pain. We discussed the alternative of a watchful approach with low threshold to return to the ED if any worsening, given that the CT scan was equivocal. However, I do think this is a very early acute appendicitis and patient would prefer to just proceed with surgery. Anticipate discharge home following surgery this evening. She will follow up via phone call on 10/17/22 at noon. Electronic Signatures: Frank Goff) (Signed 28-Sep-2022 17:48) Authored: History of Present Illness, Comorbidities, Family History, Allergies, Medications Prior to Admission, Objective, Assessment and Plan, Note Completion Last Updated: 28-Sep-2022 17:48 by Frank Goff) References: 1. Data Referenced From Triage - ED 28-Sep-2022 07:55 documented in this encounter [facility] Work Phone: Evaluation + Plan note No data available for this section [facility] Evaluation note Diagnosis Elevated bilirubin- Primary Low vitamin B12 level Generalized anxiety disorder documented in this encounter [facility] Work Phone: Evaluation note* Diagnosis Burning with urination- Primary Dysuria documented in this encounter [facility] Work Phone: Evaluation note* Diagnosis Unspecified abdominal pain Unspecified acute appendicitis Contact with and (suspected) exposure to covid-19 Nicotine dependence, other tobacco product, uncomplicated Lower abdominal pain, unspecified Low back pain, unspecified documented in this encounter [facility] Work Phone: Evaluation note* Diagnosis Hyperhidrosis Generalized hyperhidrosis Premenstrual migraine Menstrual migraine, without mention of intractable migraine without mention of status migrainosus Premenstrual syndrome Premenstrual tension syndromes Generalized anxiety disorder documented in this encounter [facility] Work Phone: Evaluation note* Diagnosis Well woman exam with routine gynecological exam Routine gynecological examination Insulin resistance Other abnormal glucose [facility] Diagnosis Traveler's diarrhea- Primary Infectious diarrhea documented in this encounter [facility] Work Phone: Evaluation note* Diagnosis Influenza A- Primary Influenza with other respiratory manifestations Acute upper respiratory infection Acute upper respiratory infections of unspecified site documented in this encounter [facility] Work Phone: Evaluation note* Diagnosis Missed menses , unspecified gestational age Encounter for supervision of normal first in first trimester [facility] N[facility]* The last health maintenance visit was 1 year year(s) ago. there are no concerns today. Concerns raised today include: premenstrual symptoms nausea/Migraine. The patient's health since the last visit is described as good. There are no interval changes in the patient's PMH, PSH, and current medications. There are no interval changes in the patient's social and family history. She has regular dentalvisits. The patient brushes 2 time(s) a day and reports her last dental visit was >2years. She complains of vision problems. Vision care includes wearing glasses, wearing soft contact lenses and an eye examination within the last year. She denies hearing loss. Immunizations status: up to date. * Lifestyle: She consumes a diverse and healthy diet. She does not have any weight concerns. She exercises regularly. She exercises less than three times a week. Exercise includes walking. She uses tobacco. The patient is a current smokeless tobacco user. She consumes alcohol. She reports occasional alcohol use. She typically drinks wine and hard liquor. * Reproductive health: she reports abnormal menses. * Menstrual history:. age at menarche was 11. LMP: the last menstrual period was 03/09/22 and it was of a normal amount and duration. she uses contraception. For contraception, she uses oral contraception pills. she is sexually active. follows with [facility], on oral contraceptive. * History: 0. * Cervical cancer screening: cancer screening reviewed and current. * Metabolic screening: no previous lipid profile. * Christ is a 22 yo female here today to establish care, she has a PMHx significant CHRIS, PMS, and Hyperhidrosis. 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 She reports she was treated with Prozac however was not tolerated, she was seeing virtual psychiatrist and she doesn t feel comfortable with that type of care, prefers in person. * Follows with [facility] regarding PMS symptoms including nausea and migraine [facility] Work Phone: History of Present illness Narrative* Christ is a 22 yo female, here today to follow up on anxiety. * Started on Wellbutrin at last appointment for anxiety * she reports she is taking the medication once daily, she forgets to take the medication twice daily * feels like she is continuing to have anxiety, mostly stress related to work. * She said she tried taking 300 mg once daily but did not feel there was much difference so she resumed 150 mg daily. * Would like to try adding another medication to further treat her anxiety, * she denies any new stressors * Denies any acute Health concerns -[facility] Work Phone: History of Present illness Narrative* Christ is a 22 yo female, here today fro follow up on vitamin deficiency and anxiety. * She is taking B complex daily vitamin D 2000 units daily * feeling well, denies any anxiety symptoms. 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 * Acute concern; has been having episode of elevated HR at rest, she reports HR was at 130's at highest, she does report energy drink and occasional pop consumption. [facility] Work Phone: Hospital Discharge instructions No data available for this section [facility] Progress note No data available for this section [facility] Reason for referral (narrative)* Consultation (Routine) - Authorized Specialty Diagnoses / Procedures Referred By Taina salazar Referred To Contact Primary Care Procedures Follow Up In Primary Care - Health Maintenance Ramila Finnegan APRN-CITY DISPATCHER [address] [facility], [place] [address] Referral ID Status Reason Start Date Expiration Date V isits Requested Visits Authorized [id number] Authorized 03/21/2023 09/17/2023 1 1 [facility] Work Phone: Reason for referral (narrative)* Consultation (Routine) - Authorized Specialty Diagnoses / Procedures Referred By Taina salazar Referred To Contact Primary Care Procedures Follow Up In Primary Care - [facility] Josr Martinez PA-C [address] [facility], [place] [address] Referral ID Status Reason Start Date Expiration Date V isits Requested Visits Authorized [id number] Authorized 11/24/2023 11/23/2024 1 1 [facility] Work Phone: Summary Purpose Family History No Family History Records FoundUnknown Family Member Name Dates Details Family history of hypertensi on: Father(V17.49, Z82.49) Status:Active No pertinent family history: Mother(V49.89, Z78.9) Status:Active Family history of diabetes m ellitus: Grandparent(V18.0, Z83.3) Status:Active Unknown Family Member Name Dates Details Family history of hypertensi on: Father(V17.49, Z82.49) Status:Active No pertinent family history: Mother(V49.89, Z78.9) Status:Active Family history of diabetes m ellitus: Grandparent(V18.0, Z83.3) Status:Active Unknown Family Member Name Dates Details Family history of hypertensi on: Father(V17.49, Z82.49) Status:Active No pertinent family history: Mother(V49.89, Z78.9) Status:Active Family history of diabetes m ellitus: Grandparent(V18.0, Z83.3) Status:Active Unknown Family Member Name Dates Details Family history of hypertensi on: Father(V17.49, Z82.49) Status:Active No pertinent family history: Mother(V49.89, Z78.9) Status:Active Family history of diabetes m ellitus: Grandparent(V18.0, Z83.3) Status:Active Unknown Family Member Name Dates Details Family history of hypertensi on: Father(V17.49, Z82.49) Status:Active No pertinent family history: Mother(V49.89, Z78.9) Status:Active Family history of diabetes m ellitus: Grandparent(V18.0, Z83.3) Status:Active Unknown Family Member Name Dates Details Family history of hypertensi on: Father(V17.49, Z82.49) Status:Active No pertinent family history: Mother(V49.89, Z78.9) Status:Active Family history of diabetes m ellitus: Grandparent(V18.0, Z83.3) Status:Active Advance Directives No Advanced Directives Records FoundNo Advanced Directives Records FoundNo Advanced Directives Records FoundNo Advanced Directives Records FoundNo Advanced Directives Records FoundNo Advanced Directives Records FoundNo Advanced Directives Records FoundNo Advanced Directives Records FoundNo Advanced Directives Records FoundNo Advanced Directives Records FoundNo Advanced Directives Records FoundNo Advanced Directives Records Found 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 Additional Source Comments <item> Privacy Markings (unrecogniz ed section and content) Section Author: Caitlin Uriarte PROHIBITION ON REDISCLOSURE OF CONFIDENTIAL INFORMATION This notice accompanies a disclosure of information concerning a client made to you with the consent of such client. INFORMATION SOURCE (unrecogn ized section and content) DATE CREATED AUTHOR 10/03/2021 [facility] DATE CREATED AUTHOR AUTHOR'S ORGANIZ ATION 10/05/2022 [facility] DATE CREATED AUTHOR AUTHOR'S ORGANIZ ATION 10/20/2022 [facility] DATE CREATED AUTHOR AUTHOR'S ORGANIZ ATION 10/20/2022 [facility] DATE CREATED AUTHOR AUTHOR'S ORGANIZ ATION [facility]/[address] [facility] DATE CREATED AUTHOR AUTHOR'S ORGANIZ ATION 05/28/2023 [facility] DATE CREATED AUTHOR AUTHOR'S ORGANIZ ATION 09/20/2024 [facility] DATE CREATED AUTHOR AUTHOR'S ORGANIZ ATION 10/13/2024 [facility] DATE CREATED AUTHOR AUTHOR'S ORGANIZ ATION 10/15/2024 [facility] DATE CREATED AUTHOR AUTHOR'S ORGANIZ ATION 10/24/2024 [facility] DATE CREATED AUTHOR AUTHOR'S ORGANIZ ATION 11/11/2024 [facility] DATE CREATED AUTHOR AUTHOR'S ORGANIZ ATION 11/22/2024 [facility] Reason for Visit (unrecogniz ed section and content) Reason Comments Anxiety Reason Comments burning with urination Reason Comments Other ABD PAIN Reason Comments pt here for med check Reason Comments Gynecologic Exam Reason Comments Flu Symptoms Cough, body aches, f ever, congestion x 1 day Reason Comments Amenorrhea Care Teams (unrecognized sec tion and content) Internet Database Specialist Relationship Specialty Start Date End Date Ramila Finnegan, AIR VALUE TESTER-CITY DISPATCHER [address] [facility], [address] [place] [address] PCP - General 03/17/22 Ramila Finnegan APRN-CITY DISPATCHER [address] [facility], [address] [place] [address] PCP - MMO ACO PCP 04/16/22 Internet Database Specialist Relationship Specialty Start Date End Date Ramila Finnegan AIR VALUE TESTER-CITY DISPATCHER [address] [facility], [address] [place] [address] PCP - General 03/17/22 Ramila Finnegan APRN-CITY DISPATCHER [address] [facility], [address] [place] [address] PCP - MMO ACO PCP 04/16/22 Internet Database Specialist Relationship Specialty Start Date End Date Ramila Finnegan APRN-CITY DISPATCHER [address] [facility], [address] [place] [address] PCP - General 03/17/22 Ramila Finnegan APRN-CITY DISPATCHER [address] [facility], [address] [place] [address] PCP - MMO ACO PCP 04/16/22 Internet Database Specialist Relationship Specialty Start Date End Date Gladys Esteban, AIR VALUE TESTER-CITY DISPATCHER [address] [facility], [address] [place] [address] PCP - MMO ACO PCP 09/15/23 Josr Martinez PA-C [address] [facility], [address] [place] [address] PCP - General Family Medicine 11/24/23 Internet Database Specialist Relationship Specialty Start Date End Date Ihsan Camarillo MD [address] [place] [address] PCP - General Family Medicine 08/26/21 Internet Database Specialist Relationship Specialty Start Date End Date Gladys Esteban, AIR VALUE TESTER-CITY DISPATCHER [address] [facility], [address] [place] [address] PCP - MMO ACO PCP 09/15/23 Josr Martinez PA-C [address] [facility], [facility] [address] [place] [address] PCP - General Family Medicine 11/24/23 Internet Database Specialist Relationship Specialty Start Date End Date Josr Martinez PA-C [address] [facility], [facility] [address] [place] [address] PCP - General Family Medicine 11/24/23 Internet Database Specialist Relationship Specialty Start Date End Date Josr Martinez MD [address] [facility], [facility] [address] [place] [address] PCP - General Family Medicine 11/08/24 FOR RECORDS PERTAINING TO PATIENTS WHO ARE OR HAVE BEEN ENROLLED IN A CHEMICAL DEPENDENCY/SUBSTANCEABUSE PROGRAM, SOME INFORMATION MAY BE OMITTED. This clinical summary was aggregated from multiple sources. Caution should be exercised in using it in the provision of clinical care. This summary normalizes information from multiple sources, and as a consequence, information in this document may materially change the coding, format and clinical context of patient data. In addition, data may be omitted in some cases. CLINICAL DECISIONS SHOULD BE BASED ON THE PRIMARY CLINICAL RECORDS. [facility], [facility]. provides no warranty or guarantee of the accuracy or completeness of information in this document.
[2024-12-03 16:40] LABS: Basophils Absolute Auto 0.1 10^3/uL (0.0-0.1); Basophils Percent Auto 0.6 % (0.2-2.0); Eosinophils Absolute Auto 0.1 10^3/uL (0.0-0.7); Eosinophils Percent Auto 0.8 % (0.9-7.0); Hemoglobin 12.7 g/dL (12.0-16.0); Immature Granulocytes Abs Auto 0.03 10^3/uL (0.00-0.03); Immature Granulocytes Pct Auto 0.3 % (0.0-0.5); Lymphocytes Absolute Auto 2.4 10^3/uL (1.2-3.8); Lymphocytes Percent Auto 24.1 % (20.5-60.0); Mean Corpuscular HGB Conc 35.3 g/dL (29.9-35.2); Mean Corpuscular Hemoglobin 30.5 pg (26.7-34.0); Mean Corpuscular Volume 86.5 fL (81.0-99.0); Mean Platelet Volume 10.3 fL (9.5-13.5); Monocytes Absolute Auto 0.5 10^3/uL (0.3-0.8); Monocytes Percent Auto 4.7 % (1.7-12.0); Neutrophils Absolute Auto 6.9 10^3/uL (1.4-6.5); Neutrophils Percent Auto 69.5 % (43.0-75.0); Platelet Count 230 10^3/uL (150-450); Red Blood Count 4.16 10^6/uL (4.20-5.40); Red Cell Distribution Width 12.3 % (11.0-15.0); White Blood Count 9.9 10^3/uL (4.0-11.0)
[2024-12-03 16:49] LABS: Amphetamine Screen Urine NEGATIVE (NEGATIVE); Barbiturates Screen Urine NEGATIVE (NEGATIVE); Benzodiazepines Screen Urine NEGATIVE (NEGATIVE); Buprenorphine Screen Urine NEGATIVE (NEGATIVE); Cannabinoid Screen Urine NEGATIVE (NEGATIVE); Cocaine Screen Urine NEGATIVE (NEGATIVE); Methadone Screen Urine NEGATIVE (NEGATIVE); Methamphetamines Screen Urine NEGATIVE (NEGATIVE); Opiate Screen Urine NEGATIVE (NEGATIVE); Oxycodone Screen Urine NEGATIVE (NEGATIVE); Phencyclidine Screen Urine NEGATIVE (NEGATIVE); Tricyclic Antidepressant Urine NEGATIVE (NEGATIVE)
[2024-12-03 16:51] LABS: Estimated Average Glucose 108 mg/dL; Glycohemoglobin A1C 5.4 % (4.5-6.2)
[2024-12-05 05:08] LABS: HIV Ab/p24 Ag Screen Non Reactive (Non Reactive)
[2024-12-05 06:09] LABS: HBsAg Screen Negative (Negative); HCV Ab Non Reactive (Non Reactive)
[2024-12-05 08:09] LABS: Rubella Antibodies, IgG 2.99 index (Immune >0.99)
[2024-12-05 12:08] LABS: Rapid Plasma Reagin, Quant Non Reactive titer (NonRea<1:1)
== END 2024-12-03 16:12 | disposition home or self-care (01) ==
LOC: LAB 16:11
PROVIDERS: Visit Provider Obstetrics & Gynecology
DX: Z34.01 Encounter for supervision of normal first pregnancy, first trimester (principal); N92.6 Irregular menstruation, unspecified
CPT/HCPCS: 36415; 80307; 83036; 85025; 86592; 86762; 86803; 86850; 86900; 86901; 87086; 87340; 87389

== ENCOUNTER 2025-03-14 08:08 | Outpatient (OUT) | payer BC, SELFPAY ==
[2025-03-14 09:31] LABS: Hematocrit 35.3 % (36.0-48.0); Hemoglobin 11.8 g/dL (12.0-16.0); Immature Granulocytes Abs Auto 0.10 10^3/uL (0.00-0.03); Immature Granulocytes Pct Auto 0.9 % (0.0-0.5); Lymphocytes Absolute Auto 1.8 10^3/uL (1.2-3.8); Mean Corpuscular HGB Conc 33.4 g/dL (29.9-35.2); Mean Corpuscular Hemoglobin 31.1 pg (26.7-34.0); Mean Corpuscular Volume 93.1 fL (81.0-99.0); Platelet Count 256 10^3/uL (150-450); Red Blood Count 3.79 10^6/uL (4.20-5.40); White Blood Count 11.1 10^3/uL (4.0-11.0)
[2025-03-14 10:43] LABS: Glucose 1 Hour 122 mg/dL (<130)
== END 2025-03-14 08:09 | disposition home or self-care (01) ==
LOC: LAB 08:09
PROVIDERS: Visit Provider Physician Assistant
DX: Z13.1 Encounter for screening for diabetes mellitus (principal)
CPT/HCPCS: 36415; 82950; 85025

== ENCOUNTER 2025-04-30 10:22 | Observation (INO) | payer BC, SELFPAY ==
--- OUTSIDE RECORDS SUMMARY | 2025-04-30 10:28 | XMS_ITS | CCD ---
Author Organization [facility] Care Team Providers Care Garnett Room Worker Name Role Phone Ihsan Camarillo Unavailable Delroy Aguirre Unavailable Unavailable Sivan, Ramila Martínez Unavailable Unavailable Unavailable MD FRANK GOFF Attending Unavailable Sivan, Mrs. Washingtonlesia Quintanilla Primary Care Unavailabl e Sivan, Ramila Quintanilla Referring Unavailabl e Sippey, Dr. Wing Attending Unavailable Sivan, Talha Ramilalesia Quintanilla Primary Care Unavailabl e Sivan, Talha Quintanilla Attending Unavailabl e Sivan, Talha Quintanilla Primary Care Unavailabl e Sivan, Talha Quintanilla Referring Unavailabl e Royal, Talha Quintanilla Referring Unavailabl e Royal, Talha Quintanilla Attending Unavailabl e Royal, Talha Quintanilla Primary Care Unavailabl e Sivan, Talha Quintanilla Referring Unavailabl e Sivan, Talha Quintanilla Attending Unavailabl e Sivan, Talha Quintanilla Primary Care Unavailabl e Royal Ramila DUNLAP Primary Care Provider [phone] Royal Ramila DUNLAP Unavailable SIVANRAMILA Primary Care Unavailable SIVAN, RAMILA Martínez Primary Care Unavailable Elissaano Gladys DUNLAP Unavailable Stentz Josr PINTO Primary Care Provider Ihsan Camarillo MD Primary Care Provider [phone] Unavailable Primary Care Provider Unavailabl e Stentz PA-Josr Ritter Primary Care Provider STENTZJOSR Primary Care Unavailable DELROY AGUIRRE Attending Unavailable OJSSUE, Edy R Admitting Unavailable JOSSUE, Edy R Attending Unavailable STENTSARY WaltonIN Primary Care Physician STENTZ, JOSR Primary Care Unavailable JOSSUE, DEY Referring Unavailable JOSSUE, EDY Attending Unavailable JOSSUE, Edy R Attending Unavailable JOSSUE, Edy R Admitting Unavailable Stentz Josr BROWNE Primary Care Provider STENTZ, JOSR Attending Unavailable STENTZ, JOSR Primary Care Unavailable STENTZ, JOSR Primary Care Unavailable BRENNON BURT Attending Unavailable STENTZ, JOSR Attending Unavailable STENTZ, JOSR Referring Unavailable STENTZ, OJSR Primary Care Unavailable JOSSUE, EDY Attending Unavailable JOSSUE, EDY Attending Unavailable RENETTA, LISSA Attending Unavailable JOSSUE, EDY Attending Unavailable JOSSUE, EDY Attending Unavailable RENETTA LISSA Attending Unavailable JOSSUE, EDY Attending Unavailable GOLDIE BECKETT Attending Unavailable Medications Current Medications Medication Drug Class(es) Dates Sig (Normalized) Sig (Original) azithromycin 500 mg oral tablet (2 sources) Macrolide Antimicrobial Start: 01-09-2024 End: 01-12-2024 take 1 tablet by mouth once daily azithromycin (Zithromax) 500 mg tablet Indications: Traveler's diarrhea Take 1 tablet (500 mg) by mouth once daily for 3 days. 3 tablet 01/09/2024 01/12/2024 Active Start: 02-19-2021 take 2 tablets by [facility] once, then take 1 tablet by mouth [...] 16-Jun-2022 Ramila Burden Start : 16-Jun-2022 Active cephalexin 500 mg oral capsule (3 sources) Cephalosporin Antibacterial Start: 01-08-2025 End: 01-15-2025 take 1 capsule by mouth in the morning cephalexin (Keflex) 500 MG capsule Indications: Folliculitis Take 1 capsule (500 mg) by mouth in the morning and 1 capsule (500 mg) before bedtime. Do all this for 7 days. 14 capsule 01/08/2025 01/15/2025 Active cholecalciferol 0.025 mg oral capsule (4 [...] 11-24-2023 End: 06-10-2024 norethindrone-ethinyl estradiol-iron (Microgestin FE 1.12/13) 1.5-30 MG-MCG tablet Take 1 tablet by mouth in the morning. 11/24/2023 06/10/2024 Discontinued (Therapy completed) Start: 11-24-2023 take 1 tablet by diane th once daily norethindrone-e.estradioL-iron (Decemberl FE 1.12/13, 28,) 1.5 mg-30 mcg (21)/75 mg (7) tablet Indications: Premenstrual migraine , Premenstrual syndrome Take 1 tablet by mouth once daily. 28 tablet 12 11/24/2023 Active Start: 05-03-2023 End: 11-24-2023 take 1 tablet by mouth once daily norethindrone-e.estradioL-iron (Junel FE 1.12/13, 28,) [...] by diane th once daily Junel FE 1.5/30, 28, 1.5 mg-30 mcg (21)/ 75 mg [...] 02-Aug-2022 Ramila Burden Start : 02-Aug-2022 Active magnesium oxide 400 mg oral tablet (10 sources) Start: 04-09-2025 End: 11-05-2025 take 1 tablet by mouth once daily magnesium oxide (Mag-Ox) 400 MG tablet Indications: Leg cramps in ([facility]) Take 1 tablet (400 mg) by mouth Daily 30 tablet 6 04/09/2025 11/05/2025 Active Start: 02-10-2025 End: 03-12-2025 take 1 tablet by mouth once daily magnesium oxide (Mag-Ox) 400 MG tablet Indications: Second trimester ([facility]) , 21 weeks gestation of ([facility]) Take 1 tablet (400 mg) by mouth Daily 30 tablet 2 02/10/2025 03/12/2025 Active 24 hr metFORMIN hydrochloride 500 mg [...] Discontinued w/o A Vit-Fe Fum-FA (PRENATA PO) (20 sources) w/o A Vit-Fe Fum-FA (PRENATA PO) Take [...] (Original) ascorbic acid 1000 mg oral tablet (11 sources) Vitamin C End: 12-10-2024 take 1 tablet by mouth in the morning Ascorbic Acid (vitamin C) 1000 MG tablet Take 1,000 mg by mouth in the morning. 12/10/2024 Discontinued (Other) ergocalciferol 0.05 mg oral tablet (2 sources) [...] Quantity: 60 Refills: 0 Ordered: 17-Mar-2022 Ramila Buredn Start : 17-Mar-2022 Active Norethindrone Acet-Ethinyl Est [...] Chronic Immunizations and screening for infectious disease (3 sources) Contact with or exposure to other viral [...] D deficiency] Onset: 03-21-2023 03-21-2023 Chronic Other complications of (2 sources) size does not accord with dates; Translations: [Uterine size-date discrepancy, second trimester] 03-11-2025 Episodic Other complications of (2 sources) Cramp in lower limb; Translations: [Leg cramps in ([facility])] 04-09-2025 Episodic Other endocrine disorders (11 sources) Hypoglycemia; Translations: [Hypoglycemia, unspecified] Onset: 03-21-2023 03-21-2023 Chronic Other female genital disorders (13 sources) Premenstrual tension syndrome; Translations: [Premenstrual tension syndromes] Onset: 03-21-2023 03-21-2023 Chronic Other female genital disorders (2 sources) Premenstrual tension syndrome; Translations: [Premenstrual tension syndrome] Onset: 03-21-2023 Chronic Other female genital disorders (2 sources) Vaginal discharge; Translations: [Other specified noninflammatory disorders of vagina] 01-08-2025 Episodic Other liver diseases (2 sources) Unspecified jaundice; Translations: [Unspecified jaundice] Onset: 03-21-2023 Episodic Other nutritional; endocrine; and metabolic disorders (2 sources) Insulin resistance; Translations: [Insulin resistance] 06-10-2024 Chronic Other nutritional; endocrine; and metabolic disorders (1 source) Overweight in adulthood with body mass index of 25 or more but less than 30 05-04-2020 Episodic Other and delivery including normal (14 sources) ; Translations: [Encounter for supervision of normal , unspecified, unspecified trimester] 11-08-2024 Episodic Other screening for suspected conditions (not mental disorders or infectious disease) (4 sources) Patient encounter status; Translations: [Encounter for other specified screening] 01-08-2025 Episodic Other skin disorders (14 sources) Hyperhidrosis; Translations: [Primary focal hyperhidrosis] Onset: 03-21-2023 03-21-2023 Episodic Other skin disorders (2 sources) Folliculitis; Translations: [Follicular disorder, unspecified] 01-08-2025 Episodic Other upper respiratory infections (5 sources) Acute pharyngitis; Translations: [Acute pharyngitis] Onset: 09-18-2024 02-19-2021 Episodic Residual codes; unclassified (2 sources) Gestation period, 12 weeks; Translations: [12 weeks gestation of ] 12-10-2024 Episodic Residual codes; unclassified (2 sources) Gestation period, 16 weeks; Translations: [16 weeks gestation of ] 01-08-2025 Episodic Residual codes; unclassified (2 sources) Gestation period, 21 weeks; Translations: [21 weeks gestation of ] 02-10-2025 Episodic Residual codes; unclassified (2 sources) Gestation period, 25 weeks; Translations: [25 weeks gestation of ] 03-11-2025 Episodic Residual codes; unclassified (2 sources) Gestation period, 29 weeks; Translations: [29 weeks gestation of ] 04-09-2025 Episodic Residual codes; unclassified (2 sources) Gestation period, 30 weeks; Translations: [30 weeks gestation of ] 04-23-2025 Episodic Spondylosis; intervertebral disc disorders; other back [...] Test Name Value Interpretation Reference Range Facility Urinalysis macro (dipstick) panel (U)on 04-23-2025 Bilirubin, UA Negative Negative - 4(70) +++ mg/dL [facility] Blood, UA Negative Negative - 50 Richard/mcL [facility] Clarity, UA Clear [facility] Color, UA Yellow [facility] Glucose, UA Negative Negative - 2000(110) ++++ mg/dL [facility] Interpretation and review of laboratory results Abnormal [facility] Ketones, UA Negative Negative - 160(16) ++++ mg/dL [facility] Leukocytes, UA Negative Negative - 500+++ Garry/mcL [facility] Nitrite, UA Negative Negative - Positive [facility] pH, UA 7 5 - 9 [facility] Protein, UA Negative Negative - 2000(20) ++++ mg/dL [facility] Spec Grav, UA 1.005 1 - 1.03 [facility] Urobilinogen, UA 0.2 0.2 - 12 mg/dL [facility] US OB FOLLOW UP TRANSABDOMIN AL APPROACHon 04-09-2025 US OB FOLLOW UP TRANSABDOMINAL APPROACH FINDINGS: A single, live intrauterine is present with normal cardiac rate of 144 beats per minute. Normal activity and amniotic fluid volume. Amniotic fluid index is 13 cm. Morphology is grossly normal. The cervix is long and closed. The current sonographic age is 29 weeks and 5 days, based on the following measurements: BPD 7.5 cm ( 30 weeks, 1 days) Head Circumference 27.0cm ( 29 weeks, 3 days) Abdominal Circumference 25.3cm ( 29weeks, 4 days) Femur Length 5.6cm (29 weeks, 4 days) Presentation Cephalic Weight (g) by Percentile 41.4 % * These measurements result in an estimated date of delivery of June 20, 2025. The current estimated weight is 1415 grams ( 3 pound, 2 ounces). Comparison made with prior examination of January 31, 2025 date of delivery at that time was June 23, 2025. IMPRESSION: Single, live intrauterine , current sonographic age of 29 weeks and 5 days, with an estimated date of delivery of June 20, 2025. * Estimated Weight (g) by Percentile is based upon an accurate estimated age based on last menstrual period. TRANSCRIBED BY: ELECTRONICALLY SIGNED BY: Adonay Peraza MD Normal Not Available Comment on above: Order Comment: US OB SCAN FOR GROWTH Estimated Date of Delivery: 06/22/25 Gestational Age as of 03/11/2025: 25w2d Urinalysis macro (dipstick) panel (U)on 04-09-2025 Bilirubin, UA Negative Negative - 4(70) +++ mg/dL [facility] Blood, UA Negative Negative - 50 Richard/mcL [facility] Clarity, UA Clear [facility] Color, UA Yellow [facility] Glucose, UA Negative Negative - 1999(110) ++++ mg/dL [facility] Interpretation and review of laboratory results Normal [facility] Ketones, UA Negative Negative - 160(16) ++++ mg/dL [facility] Leukocytes, UA Negative Negative - 500+++ Garry/mcL [facility] Nitrite, UA Negative Negative - Positive [facility] pH, UA 6.5 5 - 9 [facility] Protein, UA Negative Negative - 2000(20) ++++ mg/dL [facility] Spec Grav, UA 1.01 1 - 1.03 [facility] Urobilinogen, UA 0.2 0.2 - 12 mg/dL [facility] ALL CBC WITH AUTO DIFFon BASOPHILS ABSOLUTE AUTO 0.1 [facility] Basophils/100 WBC (Bld) 0.6 % 0.2 - 2.0 % [facility] Eosinophils/100 WBC (Bld) 1.6 % 0.9 - 7.0 % [facility] Erythrocyte distribution width (RBC) [Ratio] 12.8 % 11.0 - 15.0 % [facility] Hematocrit (Bld) [Volume fraction] 35.3 % Low 36.0 - 48.0 % [facility] Hemoglobin (Bld) [Mass/Vol] 11.8 g/dL Low 12.0 - 16.0 g/dL [facility] IMMATURE GRANULOCYTES ABS AUTO 0.1 High [facility] Immature granulocytes/100 WBC (Bld) 0.9 % High 0.0 - 0.5 % [facility] Interpretation and review of laboratory results Abnormal [facility] LYMPHOCYTES ABSOLUTE AUTO 1.8 [facility] Lymphocytes/100 WBC (Bld) 16.4 % Low 20.5 - 60.0 % [facility] MCH (RBC) [Entitic mass] 31.1 pg 26.7 - 34.0 pg [facility] MCHC (RBC) [Mass/Vol] 33.4 g/dL 29.9 - 35.2 g/dL [facility] MCV (RBC) [Entitic vol] 93.1 fL 81.0 - 99.0 fL [facility] MONOCYTES ABSOLUTE AUTO 0.5 [facility] Monocytes/100 WBC (Bld) 4.9 % 1.7 - 12.0 % [facility] NEUTROPHILS ABSOLUTE AUTO 8.4 High [facility] Neutrophils/100 WBC (Bld) 75.6 % High 43.0 - 75.0 % [facility] Platelet mean volume (Bld) [Entitic vol] 10.1 fL 9.5 - 13.5 fL [facility] EO # 0.2 [facility] PLT 256 [facility] RBC 3.79 Low [facility] WBC 11.1 High [facility] Urinalysis macro (dipstick) panel (U)on 03-11-2025 Bilirubin, UA Negative Negative - 4(70) +++ mg/dL [facility] Blood, UA Negative Negative - 50 Richard/mcL [facility] Clarity, UA Clear [facility] Color, UA Yellow [facility] Glucose, UA Negative Negative - 1999(110) ++++ mg/dL [facility] Interpretation and review of laboratory results Normal [facility] Ketones, UA Negative Negative - 160(16) ++++ mg/dL [facility] Leukocytes, UA Negative Negative - 500+++ Garry/mcL [facility] Nitrite, UA Negative Negative - Positive [facility] pH, UA 6.5 5 - 9 [facility] Protein, UA Negative Negative - 1999(20) ++++ mg/dL [facility] Spec Grav, UA 1.005 1 - 1.03 [facility] Urobilinogen, UA 0.2 0.2 - 12 mg/dL [facility] Urinalysis macro (dipstick) panel (U)on 02-10-2025 Bilirubin, UA Negative Negative - 4(70) +++ mg/dL [facility] Blood, UA Negative Negative - 50 Richard/mcL [facility] Clarity, UA Clear [facility] Color, UA Yellow [facility] Glucose, UA Negative Negative - 1999(110) ++++ mg/dL [facility] Interpretation and review of laboratory results Normal [facility] Ketones, UA Negative Negative - 160(16) ++++ mg/dL [facility] Leukocytes, UA Negative Negative - 500+++ Garry/mcL [facility] Nitrite, UA Negative Negative - Positive [facility] pH, UA 6 5 - 9 [facility] Protein, UA Negative Negative - 1999(20) ++++ mg/dL [facility] Spec Grav, UA 1.025 1 - 1.03 [facility] Urobilinogen, UA 1.0 0.2 - 12 mg/dL [facility] RECURRENT VAGINITIS (HTRX)on 01-10-2025 ATOPOBIUM VAGINAE 0 [facility] ATOPOBIUM VAGINAE Not detected [facility] BVAB 2,3 (BACTERIAL VAGINOSIS ASSOCIATED BACTERIA 2, 3); MOBILUNCUS SPP 0 [facility] BVAB 2,3 (BACTERIAL VAGINOSIS ASSOCIATED BACTERIA 2, 3); MOBILUNCUS SPP Not detected [facility] NATHANAEL ALBICANS, PARAPSILOSIS, TROPICALIS 0 [facility] NATHANAEL ALBICANS, PARAPSILOSIS, TROPICALIS Not detected [facility] NATHANAEL GLABRATA 0 [facility] NATHANAEL GLABRATA Not detected [facility] NATHANAEL KRUSEI 0 [facility] NATHANAEL KRUSEI Not detected [facility] CHLAMYDIA TRACHOMATIS 0 [facility] CHLAMYDIA TRACHOMATIS Not detected [facility] GARDNERELLA VAGINALIS 0 [facility] GARDNERELLA VAGINALIS Not detected [facility] MEGASPHAERA (TYPES 1, 2) 0 [facility] MEGASPHAERA (TYPES 1, 2) Not detected [facility] MYCOPLASMA GENITALIUM 0 [facility] MYCOPLASMA GENITALIUM Not detected [facility] NEISSERIA GONORRHOEAE 0 [facility] NEISSERIA GONORRHOEAE Not detected [facility] TRICHOMONAS VAGINALIS 0 [facility] TRICHOMONAS VAGINALIS Not detected [facility] US OB 14+ WEEKS ANATOMY SCAN on 01-08-2025 US OB 14+ WEEKS ANATOMY SCAN EXAM: US OB 14+ WEEKS ANATOMY SCAN HISTORY: anatomy. COMPARISON: Ob ultrasound 11/08/2024. TECHNIQUE: Two-dimensional transabdominal grayscale ultrasound imaging of the pelvis was performed. FINDINGS: Gestation: Single Presentation: Variable Cardiac Activity: 143 beats per minute Placental Location: Anterior with no sonographic abnormalities identified. Distance from Placental Tip to Cervix: 4.5 cm Cervical Length: 4.0 cm Amniotic Fluid: Appears adequate MEASUREMENTS: BPD: 4.9 cm EGA: 20 weeks 5 days HC: 18.3 cm EGA: 20 weeks 4 days AC: 16.3 cm EGA: 21 weeks 3 days FL: 3.5 cm EGA: 21 weeks 1 days HC/AC Ratio: 1.12 The gestational age by today's ultrasound is 21 weeks 0 days (+/- 10 days gestation). Estimated Weight: 405 grams, +/- 61 grams ( 0 lb 14 oz). Weight Percentile for gestational age: 46 % ANATOMY C-Spine: Unremarkable T-Spine: Unremarkable L-Spine: Unremarkable Sacrum: Unremarkable Four Chamber Heart: Unremarkable LVOT: Unremarkable RVOT: Unremarkable Stomach: Unremarkable Kidneys: Unremarkable Bladder: Unremarkable Diaphragm: Unremarkable Cord insertion: Unremarkable Cord vessels: Three Lateral Ventricles: Unremarkable Cerebellum: Unremarkable Cisterna Magna: Unremarkable Posterior Fossa: Unremarkable Right Femur: Unremarkable Left Femur: Unremarkable Right Tib/Fib: Unremarkable Left Tib/Fib: Unremarkable Right Rad/Ulnar: Unremarkable Left Rad/Ulnar: Unremarkable Right Humerus: Unremarkable Left Humerus: Unremarkable Nose/Lips: Unremarkable Profile: Unremarkable Orbits: Unremarkable IMPRESSION: 1. Single, live intrauterine gestation 21 weeks, 1 days by LMP. Today's ultrasound measurements correlate with a gestational age of 21 weeks 0 days. Estimated weight is 405 grams, +/- 61 grams ( 0 lb 14 oz) which correlates to 46 %. RHIANNA by today's ultrasound is 06/23/2025. 2. Unremarkable ultrasound of the anatomy. Interpreted by: Electronically signed by FRANDY CABRAL II, MD, PHD at 10-Feb-2025 11:43:03 PM [facility] Normal Not Available Comment on above: Order Comment: US OB ANATOMY SINGLE W US OB CERVICAL LENGTH Estimated Date of Delivery: 06/22/25 Gestational Age as of 01/08/2025: 16w3d Urinalysis macro (dipstick) panel (U)on 01-08-2025 Bilirubin, UA Negative Negative - 4(70) +++ mg/dL [facility] Blood, UA Negative Negative - 50 Richard/mcL [facility] Clarity, UA Clear [facility] Color, UA Yellow [facility] Glucose, UA Negative Negative - 1999(110) ++++ mg/dL [facility] Interpretation and review of laboratory results Normal [facility] Ketones, UA Negative Negative - 160(16) ++++ mg/dL [facility] Leukocytes, UA Negative Negative - 500+++ Garry/mcL [facility] Nitrite, UA Negative Negative - Positive [facility] pH, UA 7 5 - 9 [facility] Protein, UA Negative Negative - 1999(20) ++++ mg/dL [facility] Spec Grav, UA 1.01 1 - 1.03 [facility] Urobilinogen, UA 0.2 0.2 - 12 mg/dL [facility] Urinalysis macro (dipstick) panel (U)on 12-10-2024 Bilirubin, UA Negative Negative - 4(70) +++ mg/dL [facility] Blood, UA Negative Negative - 50 Richard/mcL [facility] Clarity, UA Clear [facility] Color, UA Yellow [facility] Glucose, UA Negative Negative - 1999(110) ++++ mg/dL [facility] Interpretation and review of laboratory results Normal [facility] Ketones, UA Negative Negative - 160(16) ++++ mg/dL [facility] Leukocytes, UA Negative Negative - 500+++ Garry/mcL [facility] Nitrite, UA Negative Negative - Positive [facility] pH, UA 6.5 5 - 9 [facility] Protein, UA Negative Negative - 1999(20) ++++ mg/dL [facility] Spec Grav, UA 1.02 1 - 1.03 [facility] Urobilinogen, UA 1.0 0.2 - 12 mg/dL [facility] ALL CBC WITH AUTO DIFFon BASOPHILS ABSOLUTE AUTO 0.1 [facility] Basophils/100 WBC (Bld) 0.6 % 0.2 - 2.0 % [facility] Eosinophils/100 WBC (Bld) 0.8 % Low 0.9 - 7.0 % [facility] Erythrocyte distribution width (RBC) [Ratio] 12.3 % 11.0 - 15.0 % [facility] Hematocrit (Bld) [Volume fraction] 36 % 36.0 - 48.0 % [facility] Hemoglobin (Bld) [Mass/Vol] 12.7 g/dL 12.0 - 16.0 g/dL [facility] IMMATURE GRANULOCYTES ABS AUTO 0.03 [facility] Immature granulocytes/100 WBC (Bld) 0.3 % 0.0 - 0.5 % [facility] Interpretation and review of laboratory results Abnormal [facility] LYMPHOCYTES ABSOLUTE AUTO 2.4 [facility] Lymphocytes/100 WBC (Bld) 24.1 % 20.5 - 60.0 % [facility] MCH (RBC) [Entitic mass] 30.5 pg 26.7 - 34.0 pg [facility] MCHC (RBC) [Mass/Vol] 35.3 g/dL High 29.9 - 35.2 g/dL [facility] MCV (RBC) [Entitic vol] 86.5 fL 81.0 - 99.0 fL [facility] MONOCYTES ABSOLUTE AUTO 0.5 [facility] Monocytes/100 WBC (Bld) 4.7 % 1.7 - 12.0 % [facility] NEUTROPHILS ABSOLUTE AUTO 6.9 High [facility] Neutrophils/100 WBC (Bld) 69.5 % 43.0 - 75.0 % [facility] Platelet mean volume (Bld) [Entitic vol] 10.3 fL 9.5 - 13.5 fL [facility] EO # 0.1 [facility] PLT 230 [facility] RBC 4.16 Low [facility] WBC 9.9 [facility] HCG ( test) Ql (U)o n 11-08-2024 Interpretation and review of laboratory results Abnormal [facility] Preg Test, Ur Positive Negative [facility] US OB TRANSVAGINALon 025 US OB TRANSVAGINAL [...] II, MD, PHD at 11-Nov-2024 08:34:10 AM [facility] Normal Not Available Comment on above: Order Comment: US OB TRANSVAGINAL No LMP recorded. Urinalysis macro (dipstick) panel (U)on 11-08-2024 Bilirubin, UA Negative Negative - 4(70) +++ mg/dL [facility] Blood, UA Negative Negative - 50 Richard/mcL [facility] Clarity, UA Clear [facility] Color, UA Yellow [facility] Glucose, UA Negative Negative - 1999(110) ++++ mg/dL [facility] Interpretation and review of laboratory results Normal [facility] Ketones, UA Negative Negative - 160(16) ++++ mg/dL [facility] Leukocytes, UA Negative Negative - 500+++ Garry/mcL [facility] Nitrite, UA Negative Negative - Positive [facility] pH, UA 7 5 - 9 [facility] Protein, UA Negative Negative - 1999(20) ++++ mg/dL [facility] Spec Grav, UA 1.025 1 - 1.03 [facility] Urobilinogen, UA 0.2 0.2 - 12 mg/dL [facility],QUANTITATIVEon 10-15-19 [facility],QUANTITATIVE 394.31 MIU/ML Normal [facility] Comment on above: Result Comment: [facility] INTERPRETIVE RANGES: NON FEMALE 0-6 MIU/ML MALE [...] of urine. Performed By: #### F X, [facility] #### Testing performed at [address] [address] FAX REQUESTon 10-14-2024 FAX TO [phone] Normal [facility] Comment on above: Performed By: #### F X, [facility] #### Testing performed at [address] [address] [facility] Quanton 10-12-2024 HCG.beta subunit Qn 156 m[IU]/mL High 1-3 Fis her [facility] Comment on above: Result Comment: 'F N ON < 1 - 3' ' 0.2 - 1 WEEK = 5 TO 50' ' 1 - 2 WEEKS = 50 - 500' ' 2 - 3 WEEKS = 100 - 5000' ' 3 - 4 WEEKS = 500 - 18025' ' 4 - 5 WEEKS = 1000 - 06893' ' 5 - 6 WEEKS = 55947 - 513062' ' 6 - 8 WEEKS = 61699 - 221644' ' 8 - 12 WEEKS = 30404 - 224529' Performed By: #### 2 [id number] #### Dick [facility] [address] [place] [address] CHEMISTRYOrdered By: SYSTEM SYSTEM on 10-12-2024 HCG.beta [...] 3 - 4 WEEKS = 500 - 53616' ' 4 - 5 WEEKS = 1000 - 38461' ' 5 - 6 WEEKS = 51968 - 484988' ' 6 - 8 WEEKS = 65984 - 581249' ' 8 - 12 WEEKS = 32053 - 891963' POCT SARS-COV-2/FLU/RSV PCR SYMPTOMATIC manually resultedon 09-18-2024 FLUAV RNA CHERYL+probe Ql (Resp) Detected Abnormal Not Detected [facility] Work Phone: FLUBV RNA CHERYL+probe Ql (Resp) Not detected Not Detected [facility] Work Phone: Interpretation and review of laboratory results Abnormal [facility] Work Phone: RSV RNA CHERYL+probe Ql (Resp) Not detected Not Detected [facility] Work Phone: SARS-CoV-2 (COVID-19) RNA CHERYL+probe Ql (Resp) Not detected Not Detected [facility] Work Phone: [facility] Work Phone: IGP,APTIMA HPV,AGE GDLNon AGE GDLN ACOG TESTING Note . [facility] Comment on above: TESTS RESULT FLAG UN ITS REF RANGE LAB Clinician Provided Cytology Information Source.............Cervix;Endocervix No. of containers..01 ThinPrep Vial Age Algo ACOG Renée... -14 08 FLAG LEGEND: L-Low Normal,H-High Normal,LL-Alert Low,HH-Alert High <-Panic Low,>-Panic High,A-Abnormal,AA-Critical Abnormal Performed at: 01 =G [facility] [place] [address] Payton Womack MD, IGP, RFX APTIMA HPV ASCU Note . [facility] Comment on above: TESTS RESULT FLAG UN ITS REF RANGE LAB DIAGNOSIS: 02 NEGATIVE FOR INTRAEPITHELIAL LESION OR MALIGNANCY. THIS SPECIMEN WAS RESCREENED PART OF OUR HOG SAW[employer] PROGRAM. Specimen adequacy: 02 Satisfactory for evaluation. Endocervical and/or squamous metaplastic cells (endocervical component) are present. Performed by: 02 Dilan Calero, Customs Investigator (ASCP) QC reviewed by: 02 Xenia Jasso, Customs Investigator (ASCP) . 02 Note: Note 02 The [...] <-Panic Low,>-Panic High,A-Abnormal,AA-Critical Abnormal Performed at: 02 WB [facility] [address] [place] [address] Payton Womack MD, Performed at: =G - [facility] [address], [place] [id number] Chief Station Engineer: Payton Womack MD, Phone: [phone] Performed at: [facility] [address] [facility] [id number] Chief Station Engineer: Payton Womack MD, Phone: [phone] BRUSH-SPATULA CERVIX ENDOCERVIX CLINISYNC [facility] Bacteria identifiedon 2022 Bacteria identified Cx Nom (U) Test: Urine Culture Specimen Source: Clean Catch/Voided Specimen Type: Urine Specimen Date: 05/23/2023 8:34 AM Result Date: 05/26/2023 10:10 AM Result Status: Final result Abnormal: Yes Resulting Lab: [facility] [address] [address] CULTURE >100,000 Klebsiella pneumoniae/variicola (Abnormal) SUSCEPTIBILITY Klebsiella pneumoniae/variic- galina METHOD MICROSCAN AMOXICILLIN/CLAVULANATE -- Susceptible AMPICILLIN -- Resistant AMPICILLIN/SULBACTAM -- Susceptible CEFAZOLIN -- Susceptible CEFAZOLIN (UNCOMPLICATED UTIS ONLY) -- Susceptible CIPROFLOXACIN -- Susceptible GENTAMICIN -- Susceptible NITROFURANTOIN -- Intermediate PIPERACILLIN/TAZOBACTAM -- Susceptible TRIMETHOPRIM/SULFAMETHOX AZOLE -- Susceptible Abnormal [facility] Comment on above: Performed By: #### 6 30-4 #### PALMER Martínez ([id number]) [facility] ([facility]) [address] [place] [address] Urinalysis complete panel (U )on 05-23-2023 Appearance (U) Hazy Normal Clear [facility] Comment on above: Performed By: #### 2 4356-8 #### MELITA Good ([id number]) [facility] ([facility]) [address] [place] [address] Bilirubin (U) [Mass/Vol] Negative Normal NEGATIVE [facility] Comment on above: Performed By: #### 2 4356-8 #### MELITA Good ([id number]) [facility] ([facility]) [address] [place] [address] Color (U) Yellow Normal Straw, Yellow [facility] Comment on above: Performed By: #### 2 4356-8 #### MELITA Good ([id number]) [facility] (EM) [address] [place] [address] Glucose Auto test strip (U) [Mass/Vol] Negative Normal NEGATIVE [facility] Comment on above: Performed By: #### 2 4356-8 #### MELITA Good ([id number]) [facility] ([facility]) [address] [place] [address] Ketones (U) [Mass/Vol] Negative Normal NEGATIVE [facility] Comment on above: Performed By: #### 2 4356-8 #### MELITA Good ([id number]) [facility] ([facility]) [address] [place] [address] Leukocyte esterase Auto test strip Ql (U) TRACE Abnormal NEGATIVE [facility] Comment on above: Performed By: #### 2 435-8 #### MELITA Good ([id number]) [facility] ([facility]) [address] [place] [address] Nitrite Auto test strip Ql (U) Negative Normal NEGATIVE [facility] Comment on above: Performed By: #### 2 4356-8 #### MELITA Good ([id number]) [facility] ([facility]) [address] [place] [address] pH (U) 6.0 [pH] Normal 5.0, 5.5, 6.0, 6.5, 7.0, 7.5, 8.0 [facility] Comment on above: Performed By: #### 2 4356-8 #### MELITA Good ([id number]) [facility] (EM) [address] [place] [address] Protein (U) [Mass/Vol] Negative Normal NEGATIVE [facility] Comment on above: Performed By: #### 2 4356-8 #### MELITA Good ([id number]) [facility] ([facility]) [address] [place] [address] RBC (U) [#/Vol] Negative Normal NEGATIVE [facility] Comment on above: Performed By: #### 2 4356-8 #### MELITA Good ([id number]) [facility] ([facility]) [address] [place] [address] Specific gravity (U) [Rel density] 1.016 Normal 1.005-1.035 [facility] Comment on above: Performed By: #### 2 4356-8 #### MELITA Good ([id number]) [facility] ([facility]) [address] [place] [address] Urobilinogen (U) [Mass/Vol] 2.0 mg/dL Normal <2.0 [facility] Comment on above: Result Comment: Due [...] By: #### 2 4356-8 #### MELITA Good ([id number]) [facility] ([facility]) [address] [place] [address] Urinalysis microscopic panel Auto Ql (U)on 05-23-2023 Bacteria Auto (Urine sed) [#/Area] 4+ /HPF Abnormal NONE SEEN [facility] Comment on above: Performed By: #### 5 6465-8 #### MELITA Good ([id number]) [facility] ([facility]) [address] [place] [address] Epithelial cells.squamous Auto (Urine sed) [#/Area] 1-9 (SPARSE) Normal Reference range not established. [facility] Comment on above: Performed By: #### 5 2045-8 #### MELTIA Good ([id number]) [facility] ([facility]) [address] [place] [address] Mucus Auto (Urine sed) [#/Area] 2+ /LPF Normal Reference range not established. [facility] Comment on above: Performed By: #### 5 3315-8 #### MELITA Good ([id number]) [facility] ([facility]) [address] [place] [address] 70279 RBC Auto (Urine sed) [#/Area] 1-2 Normal NONE, 1-2, 3-5 [facility] Comment on above: Performed By: #### 5 3315-8 #### MELITA Good ([id number]) [facility] ([facility]) [address] [place] [address] WBC Auto (Urine sed) [#/Area] 11-20 Abnormal 1-5, NONE [facility] Comment on above: Performed By: #### 5 3315-8 #### MELITA Good ([id number]) [facility] ([facility]) [address] [place] [address] HEPATIC FUNCTION PANELon Albumin [Mass/Vol] 4.5 g/dL Normal 3.4 - 5.0 [facility] Comment on above: Performed By: #### H EPFP #### [address] [id number] ALP [Catalytic activity/Vol] 38 U/L Normal 33 - 110 [facility] Comment on above: Performed By: #### H EPFP #### [address] [id number] ALT [Catalytic activity/Vol] 18 U/L Normal 7 - 45 [facility] Comment on above: Result Comment: Saumya ents treated with Sulfasalazine may generate falsely decreased results for ALT. Performed By: #### H EPFP #### [address] [id number] AST [Catalytic activity/Vol] 22 U/L Normal 9 - 39 [facility] Comment on above: Performed By: #### H EPFP #### [address] [id number] Bilirubin [Mass/Vol] 1.2 mg/dL Normal 0.0 - 1.2 [facility] Comment on above: Performed By: #### H EPFP #### [address] [id number] Bilirubin.indirect [Mass/Vol] 0.2 mg/dL Normal 0.0 - 0.3 [facility] Comment on above: Performed By: #### H EPFP #### [address] [id number] Protein [Mass/Vol] 7.4 g/dL Normal 6.4 - 8.2 [facility] Comment on above: Performed By: #### H EPFP #### [address] [id number] URINALYSISon 04-07-2023 Appearance (U) HAZY Normal CLEAR [facility] Comment on above: Performed By: #### U A #### [address] [id number] Bilirubin Ql (U) Negative Normal NEGATIVE [facility] Comment on above: Performed By: #### U A #### [address] [id number] Color (U) YELLOW Normal STRAW,YELLOW [facility] Comment on above: Performed By: #### U A #### [address] [id number] Glucose Ql (U) Negative Normal NEGATIVE [facility] Comment on above: Performed By: #### U A #### [address] [id number] Hemoglobin Ql (U) Negative Normal NEGATIVE [facility] Comment on above: Performed By: #### U A #### [address] [phone] Ketones Ql (U) Negative Normal NEGATIVE [facility] Comment on above: Performed By: #### U A #### [address] [id number] Leukocyte esterase Test strip Ql (U) Negative Normal NEGATIVE [facility] Comment on above: Performed By: #### U A #### [address] [id number] Nitrite Ql (U) Negative Normal NEGATIVE [facility] Comment on above: Performed By: #### U A #### [address] [id number] pH (U) 7.0 [pH] Normal 5.0 - 8.0 [facility] Comment on above: Performed By: #### U A #### [address] [id number] Protein Ql (U) Negative Normal NEGATIVE [facility] Comment on above: Performed By: #### U A #### [address] [id number] Specific gravity (U) [Rel density] 1.009 Normal 1.005 - 1.035 [facility] Comment on above: Performed By: #### U A #### [address] [id number] Urobilinogen (U) [Mass/Vol] mg/dL Normal 0.0 - 1.9 [facility] Comment on above: Performed By: #### U A #### [address] [id number] Lab Specimen Source Normal [facility] Comment on above: Performed By: #### U A #### [address] [id number] Performed By: #### H EPFP #### [address] [id number] Performed By: #### V TB12 #### [address] [id number] VITAMIN B12on 04-07-2023 Cobalamin (Vitamin B12) [Mass/Vol] 430 pg/mL Normal 211 - 911 [facility] Comment on above: Performed By: #### V TB12 #### [facility] [address] [place], [place] [id number] Post Op (General Surgery)on 10-17-2022 Post Op [...] Complaint s/p laparoscopic appendectomy History of Present IllnessMs. Palm is a 22-year-old female s/p laparoscopic [...] Dr. Goff for acute appendicitis History of [place] tooth extraction Family History No pertinent family [...] Vitamin C TABS Vitamin D2 50 MCG (2000 UT) Oral Tablet Physical Exam No physical exam performed as this was a virtual telephone follow-up appointment. Patient denies any redness or drainage at the incision sites. Results/Data Surgical pathology pending. Signatures Electronically signed by : Frank Goff MD; Oct 17 2022 11:46AM EST (Author) Normal [facility] SURGICAL PATHOLOGY RESULTSon 10-17-2022 Pathology Report Name CHRIST PALMTalha Pathologist: ROCKY SKY MD Date of Procedure: 09/28/2022 Date Received: 09/29/2022 Date Reported 10/17/2022 Submitting Physician: FRANK GOFF MD Location: [facility] Other External # FINAL DIAGNOSIS A. APPENDIX: -- APPENDIX WITH NO PATHOLOGIC DIAGNOSIS Electronically Signed Out By ROCKY SKY MD/KLC By the signature on this report, the individual or group listed as making the Final Interpretation/Diagnosis certifies that they have reviewed this case. Diagnostic interpretation performed at [facility] [address] [place] [address] Clinical History: Physician Contact Number: [phone] Fixative [...] to 0.5 cm. Purulent material is present. Msw sections are submitted in [address] [facility] Summary of Cassettes: Specimen Label Site A 1 perpendicular distal tip, proximal margin 2 medical detail representative sections of [facility]/10/12/2022 [facility] Department of Pathology [address] [place] [address] CBC AND DIFFERENTIALon 09-28 % AUTOMATED IMMATURE GRAN 0.2 % Normal 0.0 - 0.9 [facility] Comment on above: Result Comment: Malinda ture Granulocyte Count (IG) includes promyelocytes, myelocytes and metamyelocytes but does not include bands. Percent differential counts (%) should be interpreted in the context of the absolute cell counts (cells/L). Performed By: #### C BCDF ####[address] [address] Basophils (Bld) [#/Vol] 0.05 10*3/uL Normal 0.00 - 0.10 [facility] Comment on above: Performed By: #### C BCDF ####[address] [address] Basophils/100 WBC (Bld) 0.5 % Normal 0.0 - 2.0 [facility] Comment on above: Performed By: #### C BCDF ####[address] [address] Eosinophils (Bld) [#/Vol] 0.02 10*3/uL Normal 0.00 - 0.70 [facility] Comment on above: Performed By: #### C BCDF ####[address] [address] Eosinophils/100 WBC (Bld) 0.2 % Normal 0.0 - 6.0 [facility] Comment on above: Performed By: #### C BCDF ####[address] [address] Erythrocyte distribution width (RBC) [Ratio] 12.1 % Normal 11.5 - 14.5 [facility] Comment on above: Performed By: #### C BCDF ####[address] [address] Hematocrit (Bld) [Volume fraction] 40.7 % Normal 36.0 - 46.0 [facility] Comment on above: Performed By: #### C BCDF ####[address] [address] Hemoglobin (Bld) [Mass/Vol] 13.7 g/dL Normal 12.0 - 16.0 [facility] Comment on above: Performed By: #### C BCDF ####[address] [address] Lymphocytes (Bld) [#/Vol] 1.05 10*3/uL Low 1.20 - 4.80 [facility] Comment on above: Performed By: #### C BCDF ####[address] [address] Lymphocytes/100 WBC (Bld) 9.8 % Normal 13.0 - 44.0 [facility] Comment on above: Performed By: #### C BCDF ####[address] [address] MCHC (RBC) [Mass/Vol] 33.7 g/dL Normal 32.0 - 36.0 [facility] Comment on above: Performed By: #### C BCDF ####[address] [address] MCV (RBC) [Entitic vol] 90 fL Normal 80 - 100 [facility] Comment on above: Performed By: #### C BCDF ####[address] [address] Monocytes (Bld) [#/Vol] 0.43 10*3/uL Normal 0.10 - 1.00 [facility] Comment on above: Performed By: #### C BCDF ####[address] [address] Monocytes/100 WBC (Bld) 4.0 % Normal 2.0 - 10.0 [facility] Comment on above: Performed By: #### C BCDF ####[address] [address] Neutrophils (Bld) [#/Vol] 9.17 10*3/uL High 1.20 - 7.70 [facility] Comment on above: Result Comment: Perc ent differential counts (%) should be interpreted in the context of the absolute cell counts (cells/L). Performed By: #### C BCDF ####[address] [address] Neutrophils/100 WBC (Bld) 85.3 % Normal 40.0 - 80.0 [facility] Comment on above: Performed By: #### C BCDF ####[address] [address] Platelets (Bld) [#/Vol] 257 10*3/uL Normal 150 - 450 [facility] Comment on above: Performed By: #### C BCDF ####[address] [address] RBC 4.51 x10E12/L Normal 4.00 - 5.20 [facility] Comment on above: Performed By: #### C BCDF ####[address] [address] WBC (Bld) [#/Vol] 10.7 10*3/uL Normal 4.4 - 11.3 [facility] Comment on above: Performed By: #### C BCDF ####[address] [address] CBC W Auto Differential pane l (Bld)on 09-28-2022 Basophils (Bld) [#/Vol] 0.05 10*3/uL [facility] Basophils/100 WBC (Bld) 0.5 % 0.0 - 2.0 % [facility] Eosinophils (Bld) [#/Vol] 0.02 10*3/uL [facility] Eosinophils/100 WBC (Bld) 0.2 % 0.0 - 6.0 % [facility] Erythrocyte distribution width (RBC) [Ratio] 12.1 % 11.5 - 14.5 % [facility] Hematocrit (Bld) [Volume fraction] 40.7 % 36.0 - 46.0 % [facility] Hemoglobin (Bld) [Mass/Vol] 13.7 g/dL 12.0 - 16.0 g/dL [facility] Immature granulocytes/100 WBC (Bld) 0.2 % 0.0 - 0.9 % [facility] Comment on above: Immature Granulocyte Count (IG) includes promyelocytes, myelocytes and metamyelocytes but does not include bands. Percent differential counts (%) should be interpreted in the context of the absolute cell counts (cells/L). Interpretation and review of laboratory results Abnormal [facility] Lymphocytes (Bld) [#/Vol] 1.05 10*3/uL Low [facility] Lymphocytes/100 WBC (Bld) 9.8 % 13.0 - 44.0 % [facility] MCHC (RBC) [Mass/Vol] 33.7 g/dL 32.0 - 36.0 g/dL [facility] MCV (RBC) [Entitic vol] 90 fL 80 - 100 fL [facility] Monocytes (Bld) [#/Vol] 0.43 10*3/uL [facility] Monocytes/100 WBC (Bld) 4.0 % 2.0 - 10.0 % [facility] Neutrophils (Bld) [#/Vol] 9.17 10*3/uL High [facility] Comment on above: Percent differential counts (%) should be interpreted in the context of the absolute cell counts (cells/L). Neutrophils/100 WBC (Bld) 85.3 % 40.0 - 80.0 % [facility] Platelets (Bld) [#/Vol] 257 10*3/uL [facility] RBC (Bld) [#/Vol] 4.51 10*6/uL [facility] WBC (Bld) [#/Vol] 10.7 10*3/uL [facility] COMPREHENSIVE PANELon 2022 Albumin [Mass/Vol] 4.4 g/dL Normal 3.4 - 5.0 [facility] Comment on above: Performed By: #### C MP #### [address] [address] ALP [Catalytic activity/Vol] 47 U/L Normal 33 - 110 [facility] Comment on above: Performed By: #### C MP #### [address] [address] ALT [Catalytic activity/Vol] 21 U/L Normal 7 - 45 [facility] Comment on above: Result Comment: Saumya ents treated with Sulfasalazine may generate falsely decreased results for ALT. Performed By: #### C MP #### [address] [address] Anion gap [Moles/Vol] 12 mmol/L Normal 10 - 20 [facility] Comment on above: Performed By: #### C MP #### [address] [place] [address] AST [Catalytic activity/Vol] 28 U/L Normal 9 - 39 [facility] Comment on above: Performed By: #### C MP #### [address] [address] Bilirubin [Mass/Vol] 1.6 mg/dL High 0.0 - 1.2 [facility] Comment on above: Performed By: #### C MP #### [address] [address] Calcium [Mass/Vol] 9.4 mg/dL Normal 8.6 - 10.3 [facility] Comment on above: Performed By: #### C MP #### [address] [address] Chloride [Moles/Vol] 104 mmol/L Normal 98 - 107 [facility] Comment on above: Performed By: #### C MP #### [address] [address] Creatinine [Mass/Vol] 0.89 mg/dL Normal 0.50 - 1.05 [facility] Comment on above: Performed By: #### C MP #### [address] [address] eGFR FEMALE >90 Normal >90 [facility] Comment on above: Result Comment: CALC ULATIONS OF ESTIMATED GFR ARE PERFORMED USING THE 2020 CKD-EPI STUDY REFIT EQUATION WITHOUT THE RACE VARIABLE FOR THE IDMS-TRACEABLE CREATININE METHODS. https://jasn.asnjournals.org/content//ASN.85012318 88 Performed By: #### C MP #### [address] [address] Glucose [Mass/Vol] 108 mg/dL High 74 - 99 [facility] Comment on above: Performed By: #### C MP #### [address] [address] HCO3 (Bld) [Moles/Vol] 24 mmol/L Normal 21 - 32 [facility] Comment on above: Performed By: #### C MP #### [place] [address] Potassium [Moles/Vol] 3.7 mmol/L Normal 3.5 - 5.3 [facility] Comment on above: Performed By: #### C MP #### [address] [id number] Protein [Mass/Vol] 6.9 g/dL Normal 6.4 - 8.2 [facility] Comment on above: Performed By: #### C MP #### [address] [address] Sodium [Moles/Vol] 136 mmol/L Normal 136 - 145 [facility] Comment on above: Performed By: #### C MP #### [address] [id number] Urea nitrogen [Mass/Vol] 8 mg/dL Normal 6 - 23 [facility] Comment on above: Performed By: #### C MP #### [place] [address] CORONAVIRUS 2019 BY PCRon SARS-CoV-2 (COVID-19) RNA CHERYL+probe Ql (Unsp spec) Not detected Normal Not Detected [facility] Comment on above: Result Comment: . This test has received FDA Emergency Use Authorization (EUA) and has been verified by [facility]. This test is only authorized for the duration of time that circumstances exist to justify the authorization of the emergency use of in vitro diagnostic tests for the detection of SARS-CoV-2 virus and/or diagnosis of COVID-19 infection under section 564(b)(1) of the Act, 21 U.S.C. 360bbb-3(b)(1), unless the authorization is terminated or revoked sooner. [facility] is certified under CLIA-88 as qualified to perform high complexity testing. Testing is performed in the [facility] laboratory located at [address] [place] [address]. SARS-CoV-2/Flu/RSV Multiplex Test: Fact sheet for providers: https://www.fda.gov/media/630731/download Fact sheet for patients: https://www.fda.gov/media/307813/download Performed By: #### C OV19 ####[address] [place] [address] Lab Specimen Source Nasal, Nasopharyngeal [facility] Comment on above: Performed By: #### C OV19 ####[address] [place] [address] CT ABDOMEN AND PELVIS W IV C ONTRASTon 09-28-2022 CT ABDOMEN AND PELVIS W IV CONTRAST Patient Name: CHRIST PALM STUDY: CT ABDOMEN AND PELVIS W IV CONTRAST; 09/28/2022 9:49 am INDICATION: lower abddominal pain . COMPARISON: None. ACCESSION NUMBER(S): [id number] ORDERING CLINICIAN: FATEMEH KRAUS TECHNIQUE: Contiguous axial [...] unremarkable. Electronically signed by: ZEHRA VELASQUEZ MD Normal [facility] CT Abdomen and Pelvis W cont rast Giuseppe 09-28-2022 Fluid-filled appendi x with mild wall enhancement though no appendiceal dilatation or obvious wall thickening. There may be subtle periappendiceal infiltration. Early changes of appendicitis can not be excluded should be correlated with localizing right lower quadrant pain. The remainder of the abdomen and pelvis is unremarkable. [facility] Interpreted By: ZEHRA VELASQUEZ MD Patient Name: CHRIST PALM STUDY: CT ABDOMEN AND PELVIS W IV CONTRAST; 09/28/2022 9:49 am INDICATION: lower abddominal pain . COMPARISON: None. ACCESSION NUMBER(S): [id number] ORDERING CLINICIAN: FATEMEH KRAUS TECHNIQUE: Contiguous axial [...] limits. The surrounding soft tissues are unremarkable. [facility] Narciso Velasquez MD - 09/28/2022 Interpreted By: ZEHRA VELASQUEZ MD Patient Name: CHRIST PALM STUDY: CT ABDOMEN AND PELVIS W IV CONTRAST; 09/28/2022 9:49 am INDICATION: lower abddominal pain . COMPARISON: None. ACCESSION NUMBER(S): [id number] ORDERING CLINICIAN: FATEMEH KRAUS TECHNIQUE: Contiguous axial [...] of the abdomen and pelvis is unremarkable. [facility] Work Phone: Radiology Study observation (narrative) [facility] Work Phone: CT Abdomen and Pelvis W cont rast IVOrdered By: Zehra Velasquez on 09-28-2022 [facility] Work Phone: Comprehensive metabolic 2000 panelon 09-28-2022 Albumin BCP dye [Mass/Vol] 4.4 g/dL 3.4 - 5.0 g/dL [facility] ALP [Catalytic activity/Vol] 47 U/L 33 - 110 U/L [facility] ALT With P-5'-P [Catalytic activity/Vol] 21 U/L 7 - 45 U/L [facility] Comment on above: Patients treated wit h Sulfasalazine may generate falsely decreased results for ALT. Anion gap [Moles/Vol] 12 mmol/L 10 - 20 mmol/L [facility] AST With P-5'-P [Catalytic activity/Vol] 28 U/L 9 - 39 U/L [facility] Bilirubin [Mass/Vol] 1.6 mg/dL High 0.0 - 1.2 mg/dL [facility] Calcium [Mass/Vol] 9.4 mg/dL 8.6 - 10. 3 mg/dL [facility] Chloride [Moles/Vol] 104 mmol/L 98 - 107 mmol/L [facility] CO2 [Moles/Vol] 24 mmol/L 21 - 32 mmol/L [facility] Creatinine [Mass/Vol] 0.89 mg/dL 0.50 - 1.05 mg/dL [facility] GFR Female >90 - PINF [facility] Comment on above: CALCULATIONS OF NAV MATED GFR ARE PERFORMED USING THE 2020 CKD-EPI STUDY REFIT EQUATION WITHOUT THE RACE VARIABLE FOR THE IDMS-TRACEABLE CREATININE METHODS. https://jasn.asnjournals.org/content/early/ASN.62901188 88 Glucose [Mass/Vol] 108 mg/dL High 74 - 99 mg/dL [facility] Interpretation and review of laboratory results Abnormal [facility] Potassium [Moles/Vol] 3.7 mmol/L 3.5 - 5.3 mmol/L [facility] Protein [Mass/Vol] 6.9 g/dL 6.4 - 8.2 g/dL [facility] Sodium [Moles/Vol] 136 mmol/L 136 - 145 mmol/L [facility] Urea nitrogen [Mass/Vol] 8 mg/dL 6 - 23 mg/dL [facility] Covid 19 Resultson 3 SARS-CoV-2 (COVID-19) RNA [...] You may also be contacted by the [facility] to see if any of your close [...] or Naproxen (Aleve) can also be used. Rpwl-jpb-zqqdyvf cough and cold medicines can be used according to the instructions on the package. Some btdo-cmm-kldgiya medicines also contain acetaminophen. Make sure you [...] water are not available, use alcohol-based hand marine engineering consultant. Avoid touching your eyes, nose, and mouth [...] 24 apple (more content not included)... Normal [facility] HCG,BETA-QUANTITATIVEon 09-14 HCG,BETA-QUANTITATI VE <2 Normal [facility] Comment on above: Result Comment: . Total HCG measurement is performed using the Dylan Hannah Access Immunoassay which detects intact HCG and free beta HCG subunit. . This test is not indicated for use as a tumor marker. HCG testing is performed using a different test methodology at [facility] than other [facility]. Direct result comparison should only be made within the same method. REF VALUES NON FEMALE <5 MALES <5 Performed By: #### H CGQU ####[address] [place] [address] HCG.beta subunit Qnon 2022 HCG Qn m[IU]/mL mIU/mL [facility] Comment on above: . Total HCG measurement is performed using the Dylan Football Meister Access Immunoassay which detects intact HCG and free beta HCG subunit. . This test is not indicated for use as a tumor marker. HCG testing is performed using a different test methodology at [facility] than other [facility]. Direct result comparison should only be made within the same method. REF VALUES NON FEMALE <5 MALES <5 [facility] LIPASEon 09-28-2022 Lipase [Catalytic activity/Vol] 16 U/L Normal 9 - 82 [facility] Comment on above: Result Comment: Felisha puncture immediately after or during the administration of Metamizole may lead to falsely low results. Testing should be performed immediately prior to Metamizole dosing. D-fkgufu-y-benzoquinone imine (metabolite of Acetaminophen) will generate erroneously low results in samples for patients that have taken toxic doses of acetaminophen. Performed By: #### L IPAS #### [facility] [address] [place] [address] Lipaseon 09-28-2022 Lipase [Catalytic activity/Vol] 16 U/L 9 - 82 U/L [facility] Comment on above: Venipuncture immedia tely after or during the administration of Metamizole may lead to falsely low results. Testing should be performed immediately prior to Metamizole dosing. U-dipegc-v-benzoquinone imine (metabolite of Acetaminophen) will generate erroneously low results in samples for patients that have taken toxic doses of acetaminophen. No Panel Informationon 09-28 [facility] Order Reconciliationon 09-28 Order Reconciliation Page 1 [...] required oxyCOD (more content not included)... Normal [facility] Preop Checkliston 09-28-2022 Preop Checklist Preop Checklist: Preop Checklist: Arrival [id number] Arrival Time15:07 Procedure Typelap appy Temperature C36.7 degrees C Temperature F98 degrees F Heart Rate72 beats per minute Respiratory Rate12 breath per minute Blood Pressure Owepmycm455 mm/Hg Blood Pressure Btdbacrvq98 mm/Hg COVID 19 Results in Last 7 daysneg NPOyes Last Food [id number] 20:00 Last Clear Fluid [id number] 07:30 ID Band On Patientpatient ID (name) Consent Signedyes H&P Completeyes Anesthesia Assessment Completedyes EKG Performednot ordered Chest X-Ray Performednot ordered Preop Antibioticsnot ordered given in ER Type and Screen Resultedn/a HCG Urine TestComplete Chlorhexadine Bath Givennot applicable Nasal Antiseptic Appliednot applicable Soap and Water Bath the Night Before Surgerynot applicable Hair Washed with Shampoonot applicable Hat placed on infant prior to transportnot applicable SCD's Appliedyes SHARONDA [...] Communication: Language / CommunicationEnglish Electronic Signatures: Angelika Dutton (RN) (Signed 28-Sep-2022 15:30) Authored: Preop Checklist Last Updated: 28-Sep-2022 15:30 by Angelika Dutton (RN) [facility] Provider Note - ED v3on 09-14 Provider [...] Denies N/V/D. Small BM this morning. Pain 7/10)(1). Triage Information: Most recent Vital Sign Value [...] Aspartate Transami (more content not included)... Normal [facility] Risk Screen - Adult Emergenc yon 09-28-2022 Risk Screen - Adult Emergency Preferred [...] Communicatenone Learning Preferencesaudio Cultural Considerationsnone Developmental Considerationsnone Hinduism Considerationsnone Learning Assessment (Other Learner): Learning Assessment [...] an injured patient at a Trauma Center ([facility]/[place] /[place]): no Electronic Signatures: Asia Frankel (RN) (Signed 28-Sep-2022 13:23) Authored: Preferred Language, Patient Preferred Pharmacy, Advanced Directives, Family Violence Adult, Learning Assessment (Patient), Learning Assessment (Other Learner), Pressure Injury/TB/Substance, Pressure Injury, CAGE Last Updated: 28-Sep-2022 13:23 by Asia Frankel (ELIZABETH) [facility] SARS-CoV-2 (COVID-19) RNA NA A+probe Ql (Resp)on 09-28-2022 SARS-related CoV RNA CHERYL+probe Ql (Resp) Not detected Not Detected [facility] Comment on above: . This test has received [facility] Emergency Use Authorization (EUA) and has been verified by [facility]. This test is only authorized for the duration of time that circumstances exist to justify the authorization of the emergency use of in vitro diagnostic tests for the detection of SARS-CoV-2 virus and/or diagnosis of COVID-19 infection under section 564(b)(1) of the Act, 21 U.S.C. 360bbb-3(b)(1), unless the authorization is terminated or revoked sooner. [facility] is certified under CLIA-88 as qualified to perform high complexity testing. Testing is performed in the [facility] laboratory located at [address] [place] [address]. SARS-CoV-2/Flu/RSV Multiplex Test: Fact sheet for providers: https://www.fda.gov/media/068798/download Fact sheet for patients: https://www.fda.gov/media/828447/download [facility] Triage - EDon 09-28-2022 Triage - ED [...] Denies N/V/D. Small BM this morning. Pain 7/10). Onset of the Complaint: 28-Sep-2022 04:56 Triage [...] BMI (kg/m2): 28.423 Calculated BSA (m2) 1.71 [place] Coma Scale: Best Eye Response: (E4) spontaneous Best Motor Response: (M6) obeys commands Best Verbal Response: (V5) oriented [place] Score: 15 Cough lasting greater than 3 [...] Updated: 28-Sep-2022 13:23 by Asia Frankel (RN) [facility] Surgical Pathology Depar tmenton 09-28-2022 [facility] Surgical Pathology Department Name CHRIST PALM Pathologist: ROCKY SKY MD Date of Procedure: 09/28/2022 Date Received: 09/29/2022 Date Reported 10/17/2022 Submitting Physician: FRANK GOFF MD Location: [facility] Other External # FINAL DIAGNOSIS A. APPENDIX: -- APPENDIX WITH NO PATHOLOGIC DIAGNOSIS Electronically Signed Out By ROCKY SKY MD/[facility] By the signature on this report, the individual or group listed as making the Final Interpretation/Diagnosis certifies that they have reviewed this case. Diagnostic interpretation performed at [facility] [address] [facility]. [place] [id number] Clinical History: Physician Contact Number: [phone] Fixative [...] to 0.5 cm. Purulent material is present. Msw sections are submitted in [address] [facility] Summary of Cassettes: Specimen Label Site A 1 perpendicular distal tip, proximal margin 2 medical detail representative sections [facility]/10/12/2022 [facility] Department of Pathology [address] [place] [address] Normal [facility] Comment on above: Performed By: #### U HCS #### [facility] Surgical Pathology Department [id number] [place], [place] [id number] URINALYSIS WITH CULTURE IF I NDICATEDon 09-28-2022 Appearance (U) HAZY Normal CLEAR [facility] Comment on above: Performed By: #### U ARFX #### [address] [address] Bilirubin Ql (U) Negative Normal NEGATIVE [facility] Comment on above: Performed By: #### U ARFX #### [address] [address] Color (U) Penelope Normal STRAW,YELLOW [facility] Comment on above: Performed By: #### U ARFX #### [address] [address] Glucose Ql (U) Negative Normal NEGATIVE [facility] Comment on above: Performed By: #### U ARFX #### [address] [address] Hemoglobin Ql (U) Negative Normal NEGATIVE [facility] Comment on above: Performed By: #### U ARFX #### [address] [address] Ketones Ql (U) 20(1+) Abnormal NEGATIVE [facility] Comment on above: Performed By: #### U ARFX #### [address] [address] Leukocyte esterase Test strip Ql (U) Negative Normal NEGATIVE [facility] Comment on above: Performed By: #### U ARFX #### [address] [address] Nitrite Ql (U) Negative Normal NEGATIVE [facility] Comment on above: Performed By: #### U ARFX #### [address] [address] pH (U) 8.0 [pH] Normal 5.0 - 8.0 [facility] Comment on above: Performed By: #### U ARFX #### [address] [address] Protein Ql (U) Negative Normal NEGATIVE [facility] Comment on above: Performed By: #### U ARFX #### [address] [address] Specific gravity (U) [Rel density] 1.018 Normal 1.005 - 1.035 [facility] Comment on above: Performed By: #### U ARFX #### [address] [address] Urobilinogen (U) [Mass/Vol] 4.0 mg/dL High 0.0 - 1.9 [facility] Comment on above: Result Comment: SOME PIGMENTS AND MEDICATIONS MAY CAUSE A FALSE POSITIVE UROBILINOGEN Performed By: #### U ARFX #### [address] [address] Urinalysis complete W Reflex Culture panel (U)on 09-28-2022 Appearance (U) HAZY CLEAR [facility] Bilirubin (U) [Mass/Vol] Negative NEGATIVE [facility] Color (U) Penelope STRAW,YELLOW [facility] Glucose Auto test strip (U) [Mass/Vol] Negative NEGATIVE mg/dL [facility] Interpretation and review of laboratory results Abnormal [facility] Ketones (U) [Mass/Vol] 20(1+) Abnormal NEGATIVE mg/dL [facility] Leukocyte esterase Auto test strip Ql (U) Negative NEGATIVE [facility] Nitrite Auto test strip Ql (U) Negative NEGATIVE [facility] pH (U) 8.0 [pH] 5.0 - 8.0 [facility] Protein (U) [Mass/Vol] Negative NEGATIVE mg/dL [facility] RBC (U) [#/Vol] Negative NEGATIVE [facility] Specific gravity (U) [Rel density] 1.018 1.005 - 1.035 [facility] Urobilinogen (U) [Mass/Vol] 4.0 mg/dL High 0.0 - 1.9 mg/dL [facility] Comment on above: SOME PIGMENTS AND ME DICATIONS MAY CAUSE A FALSE POSITIVE UROBILINOGEN [facility] No Panel Informationon 09-14 Not at all - 0 [email or web address] [facility] Work Phone: Several days - 1 MP-Markreyes nd [facility] Work Phone: Minimal Anxiety [employer] [facility] Work Phone: Not difficult at all MPHelios[facility] Work Phone: Comment on above: How difficult have t hose problems made it for you to do your work, take care of things at home, or get along with other people? 2 1 [employer] [facility] Work Phone: Comment on above: Over [...] at all - 0 Office Visit (Family Medicbetzy e)on 09-14-2022 Follow-up visit Diagnoses/Problems Low vitamin B12 [...] denies any anxiety symptoms. 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 Acute concern; has been having episode of elevated HR at rest, she reports HR was at 130's at highest, she does report energy drink and occasional pop consumption. 'Scores and Scales' CHRIS-7 [id number] 022 CHRIS-7 Total Score2 10 5 Feeling [...] insufficiency (268.9) (E55.9) Surgical History History of [place] tooth extraction Family History No pertinent family [...] [Mass/Vol] 176 pg/mL Low 211 - 911 [facility] Comment on above: Performed By: #### V TB12 #### [address] [address] VITAMIN D, 25-HYDROXYon - VITAMIN D, 25-HYDROXY 43 ng/mL Normal [facility] Comment on above: Result Comment: . DEFICIENCY: < 20 NG/ML INSUFFICIENCY: 20-29 NG/ML SUFFICIENCY: 30-100 NG/ML THIS ASSAY ACCURATELY QUANTIFIES THE SUM OF VITAMIN D3, 25-HYDROXY AND VIT D2,25-HYDROXY. Performed By: #### V TDOH #### [address] [address] Vitamin B12, Serumon 023 Cobalamin (Vitamin B12) [Mass/Vol] 176 pg/mL below low threshold 211 - 911 [facility] Work Phone: Vitamin D 25-Hydroxyon 09-14 25-hydroxyvitamin D3 [Mass/Vol] 43 ng/mL [facility] Work Phone: Comment on above: .DEFICIENCY: < 20 NG /MLINSUFFICIENCY: 20-29 NG/MLSUFFICIENCY: 30-100 NG/MLTHIS ASSAY ACCURATELY QUANTIFIES THE SUM OFVITAMIN D3, 25-HYDROXY AND VIT D2,25-HYDROXY. COMPREHENSIVE PANELon 2021 Albumin [Mass/Vol] 4.2 g/dL Normal 3.4 - 5.0 [facility] Comment on above: Performed By: #### C MP #### [address] [address] ALP [Catalytic activity/Vol] 56 U/L Normal 33 - 110 [facility] Comment on above: Performed By: #### C MP #### [address] [address] ALT [Catalytic activity/Vol] 13 U/L Normal 7 - 45 [facility] Comment on above: Result Comment: Saumya ents treated with Sulfasalazine may generate falsely decreased results for ALT. Performed By: #### C MP #### [address] [address] Anion gap [Moles/Vol] 12 mmol/L Normal 10 - 20 [facility] Comment on above: Performed By: #### C MP #### [address] [address] AST [Catalytic activity/Vol] 17 U/L Normal 9 - 39 [facility] Comment on above: Performed By: #### C MP #### [address] [address] Bilirubin [Mass/Vol] 0.5 mg/dL Normal 0.0 - 1.2 [facility] Comment on above: Performed By: #### C MP #### [address] [address] Calcium [Mass/Vol] 9.5 mg/dL Normal 8.6 - 10.3 [facility] Comment on above: Performed By: #### C MP #### [address] [address] Chloride [Moles/Vol] 101 mmol/L Normal 98 - 107 [facility] Comment on above: Performed By: #### C MP #### [address] [address] Creatinine [Mass/Vol] 0.83 mg/dL Normal 0.50 - 1.05 [facility] Comment on above: Performed By: #### C MP #### [address] [address] eGFR FEMALE >90 Normal >90 [facility] Comment on above: Result Comment: CALC ULATIONS OF ESTIMATED GFR ARE PERFORMED USING THE 2020 CKD-EPI STUDY REFIT EQUATION WITHOUT THE RACE VARIABLE FOR THE IDMS-TRACEABLE CREATININE METHODS. https://jasn.asnjournals.org/content//ASN.50908027 88 Performed By: #### C MP #### [address] [address] Glucose [Mass/Vol] 89 mg/dL Normal 74 - 99 [facility] Comment on above: Performed By: #### C MP #### [address] [address] HCO3 (Bld) [Moles/Vol] 27 mmol/L Normal 21 - 32 [facility] Comment on above: Performed By: #### C MP #### [address] [address] Potassium [Moles/Vol] 3.7 mmol/L Normal 3.5 - 5.3 [facility] Comment on above: Performed By: #### C MP #### [address] [address] Protein [Mass/Vol] 7.4 g/dL Normal 6.4 - 8.2 [facility] Comment on above: Performed By: #### C MP #### [address] [address] Sodium [Moles/Vol] 136 mmol/L Normal 136 - 145 [facility] Comment on above: Performed By: #### C MP #### [address] [address] Urea nitrogen [Mass/Vol] 8 mg/dL Normal 6 - 23 [facility] Comment on above: Performed By: #### C MP #### [address] [address] Laboratory - Chemistry and C hemistry - challengeon 06-16-2022 Albumin BCP dye [Mass/Vol] 4.2 g/dL 3.4 - 5.0 [facility] Work Phone: ALP [Catalytic activity/Vol] 56 U/L 33 - 110 [facility] Work Phone: ALT With P-5'-P [Catalytic activity/Vol] 13 U/L 7 - 45 [facility] Work Phone: Comment on above: Patients treated wit h Sulfasalazine may generate falsely decreased results for ALT. Anion gap [Moles/Vol] 12 mmol/L 10 - 20 [facility] Work Phone: AST With P-5'-P [Catalytic activity/Vol] 17 U/L 9 - 39 [facility] Work Phone: Bilirubin [Mass/Vol] 0.5 mg/dL 0.0 - 1.2 [facility] Work Phone: Calcium [Mass/Vol] 9.5 mg/dL 8.6 - 10.3 [facility] Work Phone: Chloride [Moles/Vol] 101 mmol/L 98 - 107 [facility] Work Phone: CO2 [Moles/Vol] 27 mmol/L 21 - 32 [facility] Work Phone: Creatinine [Mass/Vol] 0.83 mg/dL See Below [facility] Work Phone: Comment on above: Reference Range: 0.5 0 - 1.05 Glucose [Mass/Vol] 89 mg/dL 74 - 99 [facility] Work Phone: Potassium [Moles/Vol] 3.7 mmol/L 3.5 - 5.3 [facility] Work Phone: Protein [Mass/Vol] 7.4 g/dL 6.4 - 8.2 [facility] Work Phone: Sodium [Moles/Vol] 136 mmol/L 136 - 145 [facility] Work Phone: Urea nitrogen [Mass/Vol] 8 mg/dL 6 - 23 [facility] Work Phone: No Panel Informationon 06-16 >90 >90 [facility] Work Phone: Comment on above: CALCULATIONS OF NAV MATED GFR ARE PERFORMED USING THE 2020 CKD-EPI STUDY REFIT EQUATION WITHOUT THE RACE VARIABLE FOR THE IDMS-TRACEABLE CREATININE METHODS.https://jasn.asnjournals.org/content//ASN. 7654528968 Not at all - 0 [facility] Work Phone: Over half the days - 2 [facility] Work Phone: Several days - 1 -[facility] Work Phone: Moderate Anxiety [facility] Work Phone: Somewhat difficult [facility] Work Phone: Comment on above: How difficult have t hose problems made it for you to do your work, take care of things at home, or get along with other people? 10 1 [facility] Work Phone: Comment on above: Over the [...] Panel; Status:In Progress - Specimen/Data Collected; Done: 16Jun2022 Generalized anxiety disorder Start: busPIRone HCl - 5 MG Oral Tablet; Take 1 tablet in AM, and take 2 tablets at bedtime Follow-up visit in 3 months Outpatient Follow-up Status: Hold For - Scheduling Requested for: 16Jun2022 Vitamin B12, Serum; Status:In Progress - Specimen/Data Collected; Done: [id number] Vitamin D 25-Hydroxy; Status:In Progress - Specimen/Data Collected; Done: [id number] Provider Impressions CHRIS: Continue on Wellbutrin 150 [...] acute Health concerns 'Scores and Scales' CHRIS-7 [id number] CHRIS-7 Total Score10 5 Feeling nervous, anxious [...] 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 Well developed, well nourished. Cardiovascular: Heart rate and rhythm were normal, normal S1 and S2, no gallops, no murmurs and no pericardial rub. Pedal pulses: Normal. No peripheral edema. Pulmonary: No respiratory distress. Clear bilateral breath sounds. Skin: Normal skin color and pigmenta (more content not included)... Normal [employer] Tobacco Screening.on Tobacco use status [facility] b) No [facility] Work Phone: VITAMIN B12on 06-16-2022 Cobalamin (Vitamin B12) [Mass/Vol] 182 pg/mL Low 211 - 911 [facility] Comment on above: Performed By: #### V TB12 #### [address] [address] VITAMIN D, 25-HYDROXYon VITAMIN D, 25-HYDROXY 29 ng/mL Abnormal [facility] Comment on above: Result Comment: . DEFICIENCY: < 20 NG/ML INSUFFICIENCY: 20-29 NG/ML SUFFICIENCY: 30-100 NG/ML THIS ASSAY ACCURATELY QUANTIFIES THE SUM OF VITAMIN D3, 25-HYDROXY AND VIT D2,25-HYDROXY. Performed By: #### V TDOH #### [address] [address] Vitamin B12, Serumon Cobalamin (Vitamin B12) [Mass/Vol] 182 pg/mL below low threshold 211 - 911 [facility] Work Phone: Vitamin D 25-Hydroxyon 06-16 25-hydroxyvitamin D3 [Mass/Vol] 29 ng/mL Abnormal [facility] Work Phone: Comment on above: .DEFICIENCY: < 20 NG /MLINSUFFICIENCY: 20-29 NG/MLSUFFICIENCY: 30-100 NG/MLTHIS ASSAY ACCURATELY QUANTIFIES THE SUM OFVITAMIN D3, 25-HYDROXY AND VIT D2,25-HYDROXY. CBCon 03-17-2022 Erythrocyte distribution width (RBC) [Ratio] 14.9 % High 11.5 - 14.5 [facility] Comment on above: Performed By: #### C BC #### [address] [address] Hematocrit (Bld) [Volume fraction] 40.5 % Normal 36.0 - 46.0 [facility] Comment on above: Performed By: #### C BC #### [address] [address] Hemoglobin (Bld) [Mass/Vol] 13.2 g/dL Normal 12.0 - 16.0 [facility] Comment on above: Performed By: #### C BC #### [address] [address] MCHC (RBC) [Mass/Vol] 32.5 g/dL Normal 32.0 - 36.0 [facility] Comment on above: Performed By: #### C BC #### [address] [address] MCV (RBC) [Entitic vol] 89 fL Normal 80 - 100 [facility] Comment on above: Performed By: #### C BC #### [address] [address] Platelets (Bld) [#/Vol] 326 10*3/uL Normal 150 - 450 [facility] Comment on above: Performed By: #### C BC #### [address] [address] RBC 4.57 x10E12/L Normal 4.00 - 5.20 [facility] Comment on above: Performed By: #### C BC #### [address] [address] WBC (Bld) [#/Vol] 5.4 10*3/uL Normal 4.4 - 11.3 [facility] Comment on above: Performed By: #### C BC #### [address] [address] COMPREHENSIVE PANELon 2021 Albumin [Mass/Vol] 4.2 g/dL Normal 3.4 - 5.0 [facility] Comment on above: Performed By: #### C MP #### [address] [address] ALP [Catalytic activity/Vol] 42 U/L Normal 33 - 110 [facility] Comment on above: Performed By: #### C MP #### [address] [address] ALT [Catalytic activity/Vol] 23 U/L Normal 7 - 45 [facility] Comment on above: Result Comment: Saumya ents treated with Sulfasalazine may generate falsely decreased results for ALT. Performed By: #### C MP #### [address] [address] Anion gap [Moles/Vol] 10 mmol/L Normal 10 - 20 [facility] Comment on above: Performed By: #### C MP #### [address] [address] AST [Catalytic activity/Vol] 25 U/L Normal 9 - 39 [facility] Comment on above: Performed By: #### C MP #### [address] [address] Bilirubin [Mass/Vol] 1.7 mg/dL High 0.0 - 1.2 [facility] Comment on above: Performed By: #### C MP #### [address] [address] Calcium [Mass/Vol] 9.5 mg/dL Normal 8.6 - 10.3 [facility] Comment on above: Performed By: #### C MP #### [address] [address] Chloride [Moles/Vol] 103 mmol/L Normal 98 - 107 [facility] Comment on above: Performed By: #### C MP #### [address] [address] Creatinine [Mass/Vol] 0.82 mg/dL Normal 0.50 - 1.05 [facility] Comment on above: Performed By: #### C MP #### [address] [address] eGFR FEMALE >90 Normal >90 [facility] Comment on above: Result Comment: CALC ULATIONS OF ESTIMATED GFR ARE PERFORMED USING THE 2020 CKD-EPI STUDY REFIT EQUATION WITHOUT THE RACE VARIABLE FOR THE IDMS-TRACEABLE CREATININE METHODS. https://jasn.asnjournals.org/content//ASN.83789252 88 Performed By: #### C MP #### [address] [address] Glucose [Mass/Vol] 68 mg/dL Low 74 - 99 [facility] Comment on above: Performed By: #### C MP #### [address] [address] HCO3 (Bld) [Moles/Vol] 27 mmol/L Normal 21 - 32 [facility] Comment on above: Performed By: #### C MP #### [address] [address] Potassium [Moles/Vol] 4.0 mmol/L Normal 3.5 - 5.3 [facility] Comment on above: Performed By: #### C MP #### [address] [address] Protein [Mass/Vol] 7.3 g/dL Normal 6.4 - 8.2 [facility] Comment on above: Performed By: #### C MP #### [address] [address] Sodium [Moles/Vol] 136 mmol/L Normal 136 - 145 [facility] Comment on above: Performed By: #### C MP #### [address] [address] Urea nitrogen [Mass/Vol] 9 mg/dL Normal 6 - 23 [facility] Comment on above: Performed By: #### C MP #### [address] [address] Laboratory - Chemistry and C hemistry - challengeon 03-17-2022 Albumin BCP dye [Mass/Vol] 4.2 g/dL 3.4 - 5.0 -[facility] Work Phone: ALP [Catalytic activity/Vol] 42 U/L 33 - 110 [facility] Work Phone: ALT With P-5'-P [Catalytic activity/Vol] 23 U/L 7 - 45 -[facility] Work Phone: Comment on above: Patients treated wit h Sulfasalazine may generate falsely decreased results for ALT. Anion gap [Moles/Vol] 10 mmol/L 10 - 20 [facility] Work Phone: AST With P-5'-P [Catalytic activity/Vol] 25 U/L 9 - 39 [facility] Work Phone: Bilirubin [Mass/Vol] 1.7 mg/dL above high threshold 0.0 - 1.2 [facility] Work Phone: Calcium [Mass/Vol] 9.5 mg/dL 8.6 - 10.3 [facility] Work Phone: Chloride [Moles/Vol] 103 mmol/L 98 - 107 [facility] Work Phone: CO2 [Moles/Vol] 27 mmol/L 21 - 32 [facility] Work Phone: Creatinine [Mass/Vol] 0.82 mg/dL See Below [facility] Work Phone: Comment on above: Reference Range: 0.5 0 - 1.05 Glucose [Mass/Vol] 68 mg/dL below low threshold 74 - 99 [facility] Work Phone: Potassium [Moles/Vol] 4.0 mmol/L 3.5 - 5.3 [facility] Work Phone: Protein [Mass/Vol] 7.3 g/dL 6.4 - 8.2 [facility] Work Phone: Sodium [Moles/Vol] 136 mmol/L 136 - 145 [facility] Work Phone: TSH Qn 2.34 m[IU]/L See Below [facility] Work Phone: Comment on above: Reference Range: 0.4 4 - 3.98 TSH testing is performed using different testing methodology at [facility] than at other [facility]. Direct result comparisons should only be made within the same method. Urea nitrogen [Mass/Vol] 9 mg/dL 6 - 23 [facility] Work Phone: Laboratory - Hematology and Cell countson 03-17-2022 Erythrocyte distribution width (RBC) [Ratio] 14.9 % above high threshold See Below [facility] Work Phone: Comment on above: Reference Range: 11. 5 - 14.5 Hematocrit (Bld) [Volume fraction] 40.5 % See Below [facility] Work Phone: Comment on above: Reference Range: 36. 0 - 46.0 Hemoglobin (Bld) [Mass/Vol] 13.2 g/dL See Below [facility] Work Phone: Comment on above: Reference Range: 12. 0 - 16.0 MCHC (RBC) [Mass/Vol] 32.5 g/dL See Below [facility] Work Phone: Comment on above: Reference Range: 32. 0 - 36.0 MCV (RBC) [Entitic vol] 89 fL 80 - 100 [facility] Work Phone: Platelets (Bld) [#/Vol] 326 10*3/uL 150 - 450 [facility] Work Phone: RBC (Bld) [#/Vol] 4.57 {x10E12/L} See Below [facility] Work Phone: Comment on above: Reference Range: 4.0 0 - 5.20 WBC (Bld) [#/Vol] 5.4 10*3/uL 4.4 - 11.3 [facility] Work Phone: No Panel Informationon 03-17 >90 >90 [facility] Work Phone: Comment on above: CALCULATIONS OF NAV MATED GFR ARE PERFORMED USING THE 2020 CKD-EPI STUDY REFIT EQUATION WITHOUT THE RACE VARIABLE FOR THE IDMS-TRACEABLE CREATININE METHODS.https://jasn.asnjournals.org/content//ASN. 8441264869 Not at all - 0 [facility] Work Phone: Over half the days - 2 [facility] Work Phone: Several days - 1 -[facility] Work Phone: Mild Anxiety [facility] Work Phone: Somewhat difficult [facility] Work Phone: Comment on above: How difficult have t hose problems made it for you to do your work, take care of things at home, or get along with other people? 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 History of Present Illness [...] pills. she is sexually active. follows with [employer]PER[employer] [facility], on oral contraceptive. History: 0. Cervical cancer screening: cancer screening reviewed and current. Metabolic screening: no previous lipid profile. Christ is a 22 yo female here today to establish care, she has a PMHx significant CHRIS, PMS, and Hyperhidrosis. 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 She reports she was treated with Prozac however was not tolerated, she was seeing virtual psychiatrist and she doesn?t feel comfortable with that type of care, prefers in person. Follows with [employer]GR[employer] OPERATOR HEL[facility] regarding PMS symptoms including nausea and migraine 'Scores and Scales' CHRIS-7 [id number] CHRIS-7 Total Score5 Feeling nervous, anxious or [...] for easy bruising. Surgical History History of [place] tooth extraction Family History No pertinent family history Family history of hypertension (V17.4 (more content not included)... Normal [employer] TSH WITH REFLEX TO FREE T4 I F ABNORMALon 03-17-2022 TSH Qn 2.34 m[IU]/L Normal 0.44 - 3.98 [facility] Comment on above: Result Comment: TSH testing is performed using different testing methodology at [facility] than at other [facility]. Direct result comparisons should only be made within the same method. Performed By: #### T HYDS #### [facility] [address] [place] [address] Tobacco Screening.on 022 Tobacco use status [facility] a) Yes -[facility] Work Phone: Tobacco Screening. Yes [facility] Work Phone: Coding Summary.on 07-13-2021 Coding Summary. [id number] Gh0b Ww+PGhlYWQ+DZ3WVCYxM99rt JAscH5CA1pKZL5TSTAGWTIVH O0GLC7nhGJ5JXlnL0ElsbMz DhfmlSYdRW42LDj4WUR7mLcj JUcrtX2bbGUkU5k2XzOaDT92 xO77NPqpLMFfMeB2RiIdntrz bWFy J8ncEoPldUCbNbr+PHRhYmxl IHdpZHRoPScxMDAlJyBzdHls YD5tBd2bRQIoNYUafCjehMZa OiBj f8qgTAXfBXzzSS4taXdbV6Yi tGU9NGXqn3a8Kn28gZO+PHRk VIS3bVnoVAvht794KhLzc4kx IDM3 pNNlVHrlNHL6A49ob3P5DRJe HOIlIFR0qLQ4kL1icHvckyeg E7MftSYuQhW5ZBV2zVXyqY3d bGln fquapB0aOpk+W85DOR2VYRTW UD6CKbt0L3TfBuedkIC+PC90 QZMmQH26oBJodIMex8kjyPt2 JzEw DFTaPZH3wFrbHWlhs0BdJVFo E32qvZDxc8S6EZAseGbivDDh IhKkjMN0aM5nZPelzwmol9vk dzsn Uexxn2ljkn35tR62S46uAAnj RBMiYVP3DWBoYTRviBrqtc3h eF2uAh8+SBupq1lkq5fxpWg9 IjIw DSEtspIqsGjqNVQ7g3CpDj00 B8ArxCmee0RfRsa9ho28fBZw e8F5oPK9JLzzNLAdyZ3dYBla ZnQ6 UEGvTvYryH37qJTsDRiaOc4q dOsfyXcuXH7mLWJmrqfbCHIw aI3wDXBzdUAokRrqVJ1aHZRl bjtm w153KjIpQUQ8BTElyGPhS1Wl jT4eOxSbMBLqNXVfL3DwvZZb JBrpF971VYsoNaR8POJtsjRn Y2Fs EZKyrLcoHoX7r1K3Li3Lq5Uj bhkfHIZ3XIduRTNtNfK4MmSx RiC0D3UzJbi6DUUzhPqbAD4i J3Bh KJDzxqbhuvfnyOK1FXRrYPCm bR79pLAwKBjzYy7ld3S8w681 DRClPHQyxV99Jf4vmCdrRIOr dCBU mK0nemluc0zihzncGeDcELIw ONl1NOy7GTQzuQmxOsYkBYB0 OqF7DJJ7qWUmmZ8fyCjkctdr dG9w Oyc+X14srC9uUVH4QAM3dtrq ZYOxznFdJD88CI45H1BjAkaw dGFibGU+GLAhhtZrjIcjUA1c YmFj i2igb6WkOPvwR0MtIXEwZJrd Uft7OXFgYEA3yMY7sT6pRGBu BXqik3C1jYU9J9PaoaSfjj3b b2xs QDJiOOrtZ14usQDfx5T7EPDu eVY6YVPahVwfPoIhwJ79Iuh+ RVOsyGsec2JyEtbfa0iff2qi dGg9 VtGcKVLbyuIgpIomNSL2r0Bb Ts95M72rXDboFOQxSQAyYUDg PLZacJwhdb8faI6gHi0+PGNv bCB3 yKT8dD0vKLDxWtT8GDmpB855 OnVbhBQzNjvkx6qjv7tknAe1 BtQxFEJnywPagDyhUXM4j7Uq Lz48 D99kOPwdLWTeWNRsBNSuCXUn vBywph3yyF2iRf6+IK0qa7ni ny26wD49aAL+DJRuSVA1oFxy PSdw JCKxrU8fWHtyRnO1LILoIkPz rG73zGKsUZzwEk0myCapvJpw HR5tJVJpjrdld018OhHey4pg IDEw jSRqUSccEHS6A73lk9T9NPZl NBDkKEI2iIB2bC3opMzlqsik bGVmdDsgdmVydGljYWwtYWxp Z246 IHRvcDsnPlBhdGllbnQgTmFt NAj2V1NtDzu3GUMfnTdkVC2h nNOcXKjeDu4qqXvyjBagMW2d NTBp qbkrj331RfTok2ufXDFunNOz KNaqTFR1O99on6W5XNEpLMAt FSJ3iGJ5eI5tyCohxeccoRJy dDsg xqSysSqpZFicBForO575CZMe hObsFbSvnyKvRUOgsNY7SM07 XD75jCGme7L4vMS1Z8OyMVZu bmct hixxxZD9AMCvVNLiqO18Kv4i wHzmYo5oTTLyXZA7AAUrsPMj L8TgmI8aDmIwAMNxFSUcG2Zi eHQt IXdlP959WBvgHaU2YGPwbkCy X1TbNJBsfEanDhF6p1S0Ij5A O4J7TN25GC83qWDcm3I2sHP5 J3Bh FQQaiaozdasjxGT0DJDeMDYo sF11As6qkJdvHg2uUMMoSWM2 IEDknNLfH4GjpM9hLaLmKTCw MDAw W6LtbMQvVDrxN386TNwfWwX1 JLTbenMjO1OuEMIabZhaEpG9 m7T5Pz1KYCu7LP24BG49qTXs c3R5 xRI7Q3RgPGQexjdxetdaiNW2 UMYxWSGbvD52Vq0nqVykEi8s JFEcEKZ8ZPSxkSLrC2AawW2x OiAj JKFrILJmC2ZntNAvKDngE055 FPqoLvL9FXUezjVtT6WfOOBa bGvmCzB3x4Y9Pd5AWGFiVD16 IFR5 xUR6TJ31RM36L1NvXqnayRQr bGU+PHRhYmxlIHdpZHRoPScx OAJxYnRhyIfuUM6fRm6cEFAp LWNv zEcsrRSdEuNba2vfDRXeMSyd FM7sdKxtF4HrrDE3YEVoz0m6 Pj92M20mA6TzmQG+PGNvbCB3 aWR0 mU6oLpOnDcM1CJmrY407LmYy sNNdCzvsu7bns7zyoNb3UtC1 KCYobzByeTozLZO4b0TfOk50 Y29s IHdpZHRoPSIxNSUiIHZhbGln mc0faR1jNe5+WBXppGX2lFX1 aX6iUtDwIaB8VVttR115ZxXk cCIv Aedqo5chh2uvrJv9WgIhOJQb rjEdwUiqVOP4j4YbWq65I3Lr fSlvq2VdHvi6uu94yUPvv0N7 bGU9 J3LmKTIvhmzttFGazEzuAM7c CRIvadafTSLgmY5nDHCyP9y9 LuTsEaK6EYzjH3RqlpI4GVAn cHQg VAjlDFH3P41yf5I1UBQzATZa CML8bDL9lI4jtAcquqwrtZIu fKufobIleMzlRJppNGgfG378 IHRv wZqmVJAogX9rPKXwoGQhiKsr GY9nULThkgrlHxUGHO3IQJTS NGBINBb7X2SbZoc7MMRowMhf ZT0n oUSaETtbYt2wuTxuiCqaWB9l MQAatnrvZEHcoM8dXIWkwYHo dBbvZO9qWMGpxzwee813RbEq MHB0 AIWxrLSrR1DfsH8oJeSlWYBh FVWmE1XuaHYaDAuvF900AVqq TcV6FROnhrHoL9NjMJVsmQwx OiB0 o7S2Jv5dYu3rPZ6xRQk9CY94 ZS93iTBpp7V9wAU4B4MqMDKt kycufoksuUJ2UVSyKRGdjW05 cGFk YRveNo8am4F2s172GPCuAXRn dR14Lo2luIpzENPdgGIIdU8r jhvsd2qzdtwrGtUxAPYkZPe3 ZXh0 SDYmjAwuUvMkBBE5FrC3JKP1 oVFnsY7eeUpzrdknqA2pPzi+ NtVtIGYthdR6X4VxEfd8YLHl dHls OC9qeEIrSNcdYd6pxLzfsAev EP4aGAPwmcztCIXfdK7aSIYx qBMqrPjoLP7oQFAbuatrv211 OiAx CZJ1TSJywKJaI9HevO1gXxKr XDFyZBZbE5WxkLHcAYpvJ539 CNofBnQ8NDIvpdMrV2GgKNWj aWdu KtN0p1T2Tw9BTD3czHU9K8Vg Ezd6STNleDohLH4oqPXhUXax Jf6whViyaNwrDT4pOFJpzdzd YWRk vW7eTSApyGMybFdxWI8xASXt wobkf477TdOpJGB3GXNivUFc W8EcnH6pBkBmUPMkQLCpY8Mi eHQt GExcW100QTsfTiA9TLVzuiSv N7FkYZMnjSytDiG2l8U9Ys5O DYKsUSCkjVJxUcQ2U7VfIxta dHI+ WA07GENkEU35wHUegVZtu4ir sFn3TsNwDLIhVLU9nFwaVFzg n3CjCLUkD25rkRUig0O9EVZf bGxh gJKtWzSbcPQ3hK8qJRscusnl f1saiuvpJahsk2ymgd94aS11 U75yXTetTKCiNUKsWNJeJMCd bGln qg7cwM1gUx1+QFKvlPH9lPU2 iY2qYqGxBrR8JXlpU886WjWp uRMwBeego4sul3scvEk2DiOc JSIg teTzxWpdGUZ4q9WqDc37J99e IHdpZHRoPSIyMCUiIHZhbGln sp6joE5fOg3+CI8sf7hnob87 cD48 dHI+AFOxONS2dUitYMgbYLEa uB8uBQchHoS1HANwKgAlvZ06 iGOtZGinSr5lwOaugDjiGE2b NTBp iizsv827UjGtz9wyWYYycQCq URziTWH2H79bf1A4XDFtSEMf PGW7tHL2nI1twEuinjmtgOSz dDsg kaTtpFytNOjeFIdlT467ZZLw tDppHlFoqTMcJ7kutyORML9v OjwvdGQ+PXOuTFX5xGjsMRpe YWRk mU6wJRRpT9n1ErQzBzR9RBwl J9EjkfV7ZMZocFTcACMxqIDT mW1gatizb7syjdzlXgHuZXLk MDt0 NXq9JRYykJliZdNnIPO5HgP6 MFC9rAXoaC4vaDkbsxyghR0r Oyc+RklOOjwvdGQ+PHRkIHN0 eWxl USyaWJRlqT5kMWBqT8o9XuNz ShL6HBheW4NwnaO2AUFyfFVo YWFlpGRWwI1uxnnhf0voagid IzAw NVRoMKd7QVf8XSAsrVqvPwHu PTF9ZkJ6AJJ3iXNaoY1liZqo lihpvG6fWkm+TVJOOjwvdGQ+ PHRk LVH2oRhoXZfsZXPbiQ4jTRRw F6e8JaXdPnO3ENfnV2LyugH2 SMPdqTNcWTFxtMFLnZ3mussx b2xv znyzRjOcPXWfSZk7APo2OREu iEmoKfAdOLA2FgV1XZB3hXYl wO5rnVczxfsmnT1vYec+UGF5 ZXI6 VK23GY65Q9EwLeoqsJEskCW+ PHRhYmxlIHdpZHRoPScxMDAl UjItmUkcRZ8rXn3hYBOvAYPt bGxh cHNl (more content not included)... Normal [facility] Grp A Strp PCRon 06-26-2021 Grp A Strp Intrl Ctrl Pass Normal [facility] Comment on above: Performed By: #### 1 [id number] #### [facility] [address] [place] [address] S. pyogenes rRNA Probe Ql (Unsp spec) Negative Normal [facility] Comment on above: Result Comment: Test ing performed using DNA amplification. Performed By: #### 1 [id number] #### [facility] [address] [place] [address] Family Medicine Phone Visit - Telehealthon 06-25-2021 Family Medicine Phone Visit - Telehealth Chief Complaint PILE DRIVING SETTER - stuffy nose, sore throat HPI Staff [...] only communication with the patient located at [address] [place] [address], with no one else. If it is [...] Ordered: Telephone Est 11 to 20 minutes [id number] 2. Sore throat (J02.9: Acute pharyngitis, unspecified) rapid strep neg. Strep cx pending Ordered: Group A Strep by PCR Rapid Strep POC [id number] Telephone Est 11 to 20 minutes [id number] Follow-up With When Contact Information AGUSTINA BROWNE, Ihsan, [facility] [address] [place] [address]- Additional Instructions: Patient Education Viral Respiratory Infection, Epwk-Qt-Apkw Problem List/Past Medical History Ongoing No qualifying data Historical No qualifying data Medications fluoxetine, Oral Ortho Tri-Cyclen, Oral, Daily Robinul Allergies No Known Allergies No Known Medication Allergies Social History Tobacco - Denies Tobacco Use, 06/25/2021 Never (less than 100 in lifetime) Tobacco Use:. Never Smokeless Tobacco Use:. Cigarettes, 06/25/2021 Family History Hypertension: Father. Normal [facility] Comment on above: Result Comment: Elec tronically Signed By: Ena LOVE CNP\.br\Date and Time Signed: 06/25/21 16:18 EST Patient [...] home: Managing pain and congestion ? Take epso-oij-bzjnmxm and prescription medicines only as told by [...] and water are not available, use hand marine engineering consultant. ? Avoid contact with people who are [...] 06/15/2009 Document Revised: 07/11/2019 Document Reviewed: 08/13/2018 Elsevier Patient Education ? 2019 [employer] [facility] Vital Signs Date Time Vital Sign Value Performing Clinician Sarah klein 04-23-2025 15:19-0400 Body mass index (BMI) [Ratio] 34.48 kg/m2 Goldie Beckett PILE DRIVING SETTER Work Phone: [facility] 04-23-2025 15:19-0400 Body weight 82.78 kg Goldie Beckett PILE DRIVING SETTER Work Phone: [facility] 04-23-2025 15:19-0400 Diastolic blood pressure 70 mm[Hg] Goldie Sophy PILE DRIVING SETTER Work Phone: [facility] 04-23-2025 15:19-0400 Systolic blood pressure 128 mm[Hg] Goldie Beckett PILE DRIVING SETTER Work Phone: [facility] 04-09-2025 15:37-0400 Body mass index (BMI) [Ratio] 33.4 kg/m2 Edy Jossue DO Work Phone: [facility] 04-09-2025 15:37-0400 Body weight 80.17 kg Edy Jossue DO Work Phone: [facility] 04-09-2025 15:37-0400 Diastolic blood pressure 60 mm[Hg] Edy Jossue DO Work Phone: [facility] 04-09-2025 15:37-0400 Systolic blood pressure 102 mm[Hg] Edy Jossue DO Work Phone: [facility] 03-11-2025 15:15-0400 Body mass index (BMI) [Ratio] 32.36 kg/m2 Lissa ELMORE Work Phone: [facility] 03-11-2025 15:15-0400 Body weight 77.68 kg Lissa ELMORE Work Phone: [facility] 03-11-2025 15:15-0400 Diastolic blood pressure 78 mm[Hg] Lissa ELMORE Work Phone: [facility] 03-11-2025 15:15-0400 Systolic blood pressure 128 mm[Hg] Lissa Jackson PA Work Phone: [facility] 02-10-2025 15:45-0400 Body mass index (BMI) [Ratio] 30.07 kg/m2 Edy Jossue DO Work Phone: [facility] 02-10-2025 15:45-0400 Body weight 72.18 kg Edy Jossue DO Work Phone: [facility] 02-10-2025 15:45-0400 Diastolic blood pressure 64 mm[Hg] Edy Jossue DO Work Phone: [facility] 02-10-2025 15:45-0400 Systolic blood pressure 110 mm[Hg] Edy Jossue DO Work Phone: [facility] 01-08-2025 16:00-0400 Body mass index (BMI) [Ratio] 28.55 kg/m2 Lissa Jackson PA Work Phone: [facility] 01-08-2025 16:00-0400 Body weight 68.55 kg Lissa Jackson PA Work Phone: [facility] 01-08-2025 16:00-0400 Diastolic blood pressure 60 mm[Hg] Lissa Jackson PA Work Phone: [facility] 01-08-2025 16:00-0400 Systolic blood pressure 104 mm[Hg] Lissa Jackson PA Work Phone: [facility] 12-10-2024 14:59-0400 Body mass index (BMI) [Ratio] 27.93 kg/m2 Edy Jossue DO Work Phone: [facility] 12-10-2024 14:59-0400 Body weight 67.04 kg Edy Jossue DO Work Phone: [facility] 12-10-2024 14:59-0400 Diastolic blood pressure 68 mm[Hg] Edy Jossue DO Work Phone: [facility] 12-10-2024 14:59-0400 Systolic blood pressure 102 mm[Hg] Edy Marcum DO Work Phone: [facility] 11-08-2024 10:59-0400 Body height 154.9 cm [facility] Nurse [facility] 11-08-2024 10:51-0400 Body mass index (BMI) [Ratio] 27.87 kg/m2 [facility] Nurse [facility] 11-08-2024 10:51-0400 Body weight 66.91 kg [facility] Nurse [facility] 11-08-2024 10:51-0400 Diastolic blood pressure 76 mm[Hg] [facility] Nurse [facility] 11-08-2024 10:51-0400 Systolic blood pressure 104 mm[Hg] [facility] Nurse [facility] 09-18-2024 15:27-0500 Body height 157.5 cm Delroy Aguirre RAW M[employer] OPERATOR-STUDY DIRECTOR Work Phone: [facility] 09-18-2024 15:27-0500 Body mass index (BMI) [Ratio] 27.44 kg/m2 Delroy Aguirre RAW MILL OPERATOR-STUDY DIRECTOR Work Phone: [phone] [place] [address] 09-18-2024 15:27-0500 Body temperature 97.81 [degF] Delroy Tompkinseninesha RAW MILL OPERATOR-STUDY DIRECTOR Work Phone: [facility] 09-18-2024 15:27-0500 Body weight 68.04 kg Delroy Aguirre RAW MILL OPERATOR-STUDY DIRECTOR Work Phone: [facility] 09-18-2024 15:27-0500 Diastolic blood pressure 82 mm[Hg] Delroy Aguirre RAW MILL OPERATOR-STUDY DIRECTOR Work Phone: [facility] 09-18-2024 15:27-0500 Heart rate 95 /min Delroy Aguirre RAW MILL OPERATOR-STUDY DIRECTOR Work Phone: [facility] 09-18-2024 15:27-0500 Respiratory rate 16 /min Delroy Aguirre RAW MILL OPERATOR-STUDY DIRECTOR Work Phone: [facility] 09-18-2024 15:27-0500 SaO2% (BldA) [Mass fraction] 98 % Delroy Aguirre RAW MILL OPERATOR-STUDY DIRECTOR Work Phone: [facility] 09-18-2024 15:27-0500 Systolic blood pressure 114 mm[Hg] Delroy Aguirre RAW MILL OPERATOR-STUDY DIRECTOR Work Phone: [facility] 06-10-2024 09:27-0500 Body weight 70.76 kg Edy Jossue DO Work Phone: [facility] 06-10-2024 09:27-0500 Diastolic blood pressure 70 mm[Hg] Edy Jossue DO Work Phone: [facility] 06-10-2024 09:27-0500 Systolic blood pressure 120 mm[Hg] Edy Jossue DO Work Phone: [facility] 11-24-2023 07:40-0400 Body height 158.8 cm Josr Stentz PA-C Work Phone: [facility] 11-24-2023 07:40-0400 Body mass index (BMI) [Ratio] 25.92 kg/m2 Josr Stentz PA-C Work Phone: [facility] 11-24-2023 07:40-0400 Body weight 65.32 kg Josr Stentz PA-C Work Phone: [facility] 11-24-2023 07:40-0400 Diastolic blood pressure 70 mm[Hg] Josr Stentz PA-C Work Phone: [facility] 11-24-2023 07:40-0400 Heart rate 63 /min Josr Stentz PA-C Work Phone: [facility] 11-24-2023 07:40-0400 SaO2% (BldA) [Mass fraction] 97 % Josr Stentz PA-C Work Phone: [facility] [facility] 11-24-2023 07:40-0400 Systolic blood pressure 118 mm[Hg] Josr Stentz PA-C Work Phone: [facility] 09-14-2022 08:23-0500 Body height 158.75 cm Ramila Martínez Sivan Work Phone: [facility] Work Phone: 09-14-2022 08:23-0500 Body mass index (BMI) [Ratio] 26.73 kg/m2 Ramila Martínez Royal Work Phone: [facility] Work Phone: 09-14-2022 08:23-0500 Body surface area Derived from formula 1.69 m2 Ramila Martínez Royal Work Phone: [facility] Work Phone: 09-14-2022 08:23-0500 Body weight 67.36 kg Ramila Martínez Sivna Work Phone: [facility] Work Phone: 09-14-2022 08:23-0500 Diastolic blood pressure 70 mm[Hg] Ramila Martínez Sivan Work Phone: [facility] Work Phone: 09-14-2022 08:23-0500 Heart rate 75 /min Ramila Martínez Royal Work Phone: [facility] Work Phone: 09-14-2022 08:23-0500 Systolic blood pressure 118 mm[Hg] Ramila Martínez Royal Work Phone: [facility] Work Phone: 06-16-2022 08:15-0500 Body height 158.7 cm Ramila Martínez Sivan Work Phone: [facility] Work Phone: 06-16-2022 08:15-0500 Body mass index (BMI) [Ratio] 26.55 kg/m2 Ramila L Sivan Work Phone: [facility] Work Phone: 06-16-2022 08:15-0500 Body surface area Derived from formula 1.69 m2 Ramila Livingstond Work Phone: [facility] Work Phone: 06-16-2022 08:15-0500 Body weight 66.86 kg Ramila Martínez Royal Work Phone: [facility] Work Phone: 06-16-2022 08:15-0500 Diastolic blood pressure 84 mm[Hg] Ramila Martínez Sivan Work Phone: [facility] Work Phone: 06-16-2022 08:15-0500 Heart rate 75 /min Ramila Martínez Sivan Work Phone: [facility] Work Phone: 06-16-2022 08:15-0500 Systolic blood pressure 128 mm[Hg] Ramila Martínez Royal Work Phone: [facility] Work Phone: 03-17-2022 08:20-0400 Body height 158.75 cm Ramila Martínez Sivan Work Phone: [facility] Work Phone: 03-17-2022 08:20-0400 Body mass index (BMI) [Ratio] 25.64 kg/m2 Ramila Martínez Royal Work Phone: [facility] Work Phone: 03-17-2022 08:20-0400 Body surface area Derived from formula 1.66 m2 Ramila Livingstond Work Phone: [facility] Work Phone: 03-17-2022 08:20-0400 Body weight 64.61 kg Ramila Martínez Sivan Work Phone: [facility] Work Phone: 03-17-2022 08:20-0400 Diastolic blood pressure 70 mm[Hg] Ramila Martínez Sivan Work Phone: [facility] Work Phone: 03-17-2022 08:20-0400 Heart rate 64 /min Ramila Finnegan Work Phone: [facility] Work Phone: 03-17-2022 08:20-0400 Systolic blood pressure 114 mm[Hg] Ramila Finnegan Work Phone: [facility] Work Phone: 02-19-2021 17:00-0400 Body height 165.1 cm Ihsan Camarillo Other Phone: [facility] 02-19-2021 17:00-0400 Body temperature 97.7 [degF] Ihsan Camarillo Other Phone: [facility] 02-19-2021 17:00-0400 Diastolic blood pressure 72 mm[Hg] Ihsan Camarillo Other Phone: [facility] 02-19-2021 17:00-0400 Heart rate 96 /min Ihsan Camarillo Other Phone: [facility] 02-19-2021 17:00-0400 Respiratory rate 16 /min Ihsan Camarillo Other Phone: [facility] 02-19-2021 17:00-0400 SaO2% (BldA) [Mass fraction] 97 % Ihsan Camarillo Other Phone: [facility] 02-19-2021 17:00-0400 Systolic blood pressure 108 mm[Hg] Ihsan Camarillo Other Phone: [facility] Encounters Encounter Date Encounter Type Care Provider Facility Start: 04-23-2025 End: 04-23-2025 ambulatory GOLDIE BECKETT Not Available Start: 04-23-2025 End: 04-23-2025 flow sheet Goldie Beckett PILE DRIVING SETTER Work Phone: [facility] Comment on above: Third trimester preg jamin ([facility]); 30 weeks gestation of ([facility]) Start: 04-23-2025 End: 04-23-2025 Bamboo flowsheet Goldie Beckett PILE DRIVING SETTER Work Phone: [facility] Start: 04-23-2025 End: 04-23-2025 Bamboo flowsheet Goldie Beckett PILE DRIVING SETTER Work Phone: [facility] Start: 04-09-2025 End: 04-09-2025 flow sheet Edy Jossue DO Work Phone: [facility] Comment on above: Third trimester preg jamin ([facility]); 29 weeks gestation of ([facility]); Leg cramps in ([facility]) Start: 04-09-2025 End: 04-09-2025 ambulatory EDY JOSSUE Not Available Start: 03-14-2025 End: 03-14-2025 Clinisync Result Encounter Lissa ELMORE Work Phone: [facility] Unsolicited Start: 03-14-2025 End: 03-14-2025 Clinisync Result Encounter Lissa ELMORE Work Phone: [facility] Unsolicited Start: 03-11-2025 End: 03-11-2025 flow sheet Lissa ELMORE Work Phone: [facility] Comment on above: Size of fetus incons istent with dates in second trimester ([facility]) (Primary Dx); Diabetes mellitus screening; Second trimester ([facility]); 25 weeks gestation of ([facility]) Start: 03-11-2025 End: 03-11-2025 ambulatory LISSA JACKSON Not Available Start: 03-11-2025 End: 03-11-2025 Bamboo flowsheet Lissa ELMORE Work Phone: [facility] Start: 03-11-2025 End: 03-11-2025 Bamboo flowsheet Lissa ELMORE Work Phone: [facility] Start: 02-10-2025 End: 02-10-2025 flow sheet Edy Jossue DO Work Phone: [facility] Comment on above: Second trimester pre gnancy ([facility]); 21 weeks gestation of ([facility]) Start: 02-10-2025 End: 02-10-2025 ambulatory EYD JOSSUE Not Available Start: 02-10-2025 End: 02-10-2025 ambulatory EDY JOSSUE Not Available Start: 01-08-2025 End: 01-08-2025 flow sheet Lissa ELMORE Work Phone: [facility] Comment on above: 16 weeks gestation o f ([facility]); Second trimester ([facility]); Exposure to STD; Vaginal discharge; Screening, , for anatomic survey ([facility]); Folliculitis Start: 01-08-2025 End: 01-08-2025 ambulatory LISSA JACKSON Not Available Start: 01-08-2025 End: 01-08-2025 Bamboo flowsheet Lissa ELMORE Work Phone: [facility] Start: 01-08-2025 End: 01-10-2025 Bamboo flowsheet Lissa ELMORE Work Phone: [facility] Start: 01-08-2025 End: 01-10-2025 External Result Encounter Lissa ELMORE Work Phone: [facility] Unsolicited Start: 12-10-2024 End: 12-10-2024 flow sheet Edy Jossue DO Work Phone: [facility] Comment on above: First trimester preg jamin; 12 weeks gestation of Start: 12-10-2024 End: 12-10-2024 ambulatory EDY JOSSUE Not Available Start: 12-10-2024 End: 12-10-2024 Bamboo flowsheet Edy Jossue DO Work Phone: [facility] Start: 12-10-2024 End: 12-10-2024 Bamboo flowsheet Edy Jossue DO Work Phone: [facility] Start: 12-03-2024 End: 12-04-2024 Clinisync Result Encounter Edy Jossue DO Work Phone: [facility] Unsolicited Start: 12-03-2024 End: 12-04-2024 Clinisync Result Encounter Edy Jossue DO Work Phone: [facility] Unsolicited Start: 11-19-2024 End: 11-19-2024 ambulatory [facility] Ambulatory Start: 11-08-2024 End: 11-08-2024 Office outpatient visit 5 minutes [facility] Jossue Nurse [facility] Comment on above: GA: 7w5d Start: 11-08-2024 End: 11-08-2024 ambulatory EDY JOSSUE Not Available Start: 10-14-2024 [facility] Start: 10-12-2024 End: 10-13-2024 ambulatory Edy R JOSSUE Facility[facility] Start: 10-12-2024 End: 10-13-2024 Patient encounter procedure Edy R JOSSUE [facility] Start: 10-07-2024 End: 10-07-2024 ambulatory EDY JOSSUE Not Available Start: 09-18-2024 End: 09-18-2024 Patient encounter procedure Delroy Aguirre RAW MILL OPERATOR-STUDY DIRECTOR Work Phone: [facility] Comment on above: Influenza A (Primary Dx); Acute upper respiratory infection Start: 09-18-2024 End: 09-18-2024 ambulatory [facility] Start: 06-10-2024 End: 06-10-2024 Bamboo flowsheet Edy Jossue DO Work Phone: [facility] Start: 06-10-2024 End: 06-20-2024 Bamboo flowsheet Edy Jossue DO Work Phone: [facility] Start: 06-10-2024 End: 06-20-2024 Clinisync Result Encounter Edy Marcum DO Work Phone: [facility] Unsolicited Start: 06-10-2024 End: 06-10-2024 ambulatory EDY MARCUM Not Available Start: 06-10-2024 End: 06-10-2024 Patient encounter procedure Eyd Marcum DO Work Phone: [facility] Start: 06-10-2024 End: 06-10-2024 Periodic preventive med est patient 18-39 yrs Edy Marcum DO Work Phone: [facility] Comment on above: Well woman exam with routine gynecological exam; Insulin resistance Start: 05-20-2024 End: 05-20-2024 Emergency department patient visit Ihsan Camarillo MD Work Phone: [facility] Start: 01-09-2024 End: 01-09-2024 Office outpatient visit 10 minutes Brennon Burt MD Work Phone: [facility] Comment on above: Traveler's diarrhea (Primary Dx) Start: 01-09-2024 End: 01-09-2024 ambulatory [facility] Amb[facility] Start: 11-24-2023 End: 11-24-2023 Office outpatient visit 15 minutes [facility] B[facility] Work Phone: [facility] Comment on above: Hyperhidrosis; Premenstrual migraine; Premenstrual syndrome; Generalized anxiety disorder Start: 11-24-2023 End: 11-24-2023 ambulatory [facility] Start: 05-23-2023 End: 05-24-2023 ambulatory RAMILA Martínez SIVAN [facility] Start: 05-22-2023 End: 05-22-2023 Office outpatient visit 15 minutes Gladys Esteban APRN-NAYA Work Phone: [facility] Comment on above: Burning with urinati on (Primary Dx) Start: 04-07-2023 End: 04-08-2023 ambulatory RAMILA FINNEGAN [facility] Start: 03-21-2023 End: 03-21-2023 Office outpatient visit 15 minutes Ramila Finnegan RAW MILL OPERATOR-STUDY DIRECTOR Work Phone: [facility] Comment on above: Elevated bilirubin ( Primary Dx); Low vitamin B12 level; Generalized anxiety disorder Start: 10-17-2022 [address] Mrs[address] Ramila Finnegan Fa cility:[id number] Start: 09-28-2022 End: 09-28-2022 ambulatory MD FRANK GOFF Facility:[id number] Start: 09-28-2022 End: 09-28-2022 Emergency department patient visit Fatemeh Kraus MD Work Phone: [facility] Comment on above: Unspecified abdomina l pain; Unspecified acute appendicitis; Contact with and (suspected) exposure to covid-19; Nicotine dependence, other tobacco product, uncomplicated; Lower abdominal pain, unspecified; Low back pain, unspecified Start: 09-15-2022 AUDIT Ramila Martínez Sivan Work Phone: [facility] Work Phone: Start: 09-14-2022 [address] Mrs[address] Ramila Finnegan Fa cility:[id number] Start: 09-14-2022 Office outpatient vi sit 15 minutes Ramila Martínez Sivan Work Phone: [facility] Work Phone: Start: 08-02-2022 Rx Renewal Ramila Livingstond Work Phone: [facility] Work Phone: Start: 06-17-2022 AUDIT Ramila Livingstond Work Phone: [facility] Work Phone: Start: 06-16-2022 Office outpatient vi sit 15 minutes Ramila Livingstond Work Phone: [facility] Work Phone: Start: 06-16-20[address] Mrs[address] Ramila Finnegan Fa cility:[id number] Start: 03-17-2022 Office outpatient ne w 45 minutes Ramila Martínez Sivan Work Phone: [facility] Work Phone: Start: 03-17-2022 [address] Mrs[address] Ramila Quintanilla Royal Fa cility:[id number] Start: 02-19-2021 End: 02-19-2021 Emergency department patient visit Delroy Aguirre [facility] Procedures Date Procedure Procedure Detail Performing Clinician Start: 04-23-2025 Urnls dip stick/tabl et rgnt non-auto w/o micrscp Goldie Beckett PILE DRIVING SETTER Work Phone: Start: 04-09-2025 Urnls dip stick/tabl et rgnt non-auto w/o micrscp Edy Jossue DO Work Phone: Start: 03-14-2025 ALL CBC WITH AUTO DIFF Lissa ELMORE Work Phone: Start: 03-11-2025 Urnls dip stick/tabl et rgnt non-auto w/o micrscp Lissa ELMORE Work Phone: Start: 02-10-2025 Urnls dip stick/tabl et rgnt non-auto w/o micrscp Edy Jossue DO Work Phone: Start: 01-08-2025 RECURRENT VAGINITIS (HTRX) Lissa ELMORE Work Phone: Start: 01-08-2025 Urnls dip stick/tabl et rgnt non-auto w/o micrscp Lissa ELMORE Work Phone: Start: 12-10-2024 Urnls dip stick/tabl et rgnt non-auto w/o micrscp Lissa ELMORE Work Phone: Start: 12-03-2024 ALL CBC WITH AUTO DIFF Edy Jossue DO Work Phone: Start: 11-08-2024 End: 11-08-2024 Urnls dip stick/tablet rgnt non-auto w/o micrscp Edy Jossue DO Work Phone: Start: 09-18-2024 POCT SARS-COV-2/FLU/ RSV PCR SYMPTOMATIC Delroy Aguirre RAW MILL OPERATOR-STUDY DIRECTOR Work Phone: Start: 06-10-2024 IGP,APTIMA HPV,AGE GDLN Edy Hernadezo DO Work Phone: Start: 06-10-2024 Microscopic observat ion [Identifier] in Cervix by Cyto stain Delroy Raúl RAW MILL OPERATOR-STUDY DIRECTOR Work Phone: Start: 05-23-2023 Bacteria identified in Urine by Culture RAMILA FINNEGAN Start: 05-23-2023 MICROSCOPIC ONLY, URINE RAMILA FINNEGAN Start: 05-23-2023 URINALYSIS WITH REFL EX MICROSCOPIC RAMILA SIVAN Start: 04-07-2023 Cyanocobalamin vitamin b-12 RAMILA FINNEGAN Start: 04-07-2023 Hepatic function 200 0 panel - Serum or Plasma RAMILA FINNEGAN Start: 04-07-2023 URINALYSIS WITH REFL EX MICROSCOPIC RAMILA FINNEGAN Start: 09-28-2022 SURGICAL PATHOLOGY RESULTS Frank Goff [...] ion [Identifier] in Cervix by Cyto stain Ramila Finnegan RAW MILL OPERATOR-STUDY DIRECTOR Work Phone: Extraction of wisdom tooth Johnathan Finnegan Work Phone: Plan of Treatment Date Care Activity Detail Author Start: 01-24-2048 Zoster Vaccines (1 o f 2) Zoster Vaccines (1 of 2) [facility] Start: 06-10-2027 Screening for malign ant neoplasm of cervix [facility] Start: 06-17-2025 End: 06-17-2025 Patient encounter procedure [facility] Start: 05-05-2025 End: 05-05-2025 Patient encounter procedure 05/05/2025 8:40 AM EDT Routine [facility] [address] [place] [phone] Edy Marcum DO [address] [place], [place] [id number] [facility] Start: 04-23-2025 End: 04-23-2025 Patient encounter procedure 04/23/2025 3:10 PM EDT Routine [facility] [address] [place] [phone] Goldie Beckett, PILE DRIVING SETTER [address] [place] [phone] [facility] Start: 04-09-2025 End: 04-09-2025 Patient encounter procedure 04/09/2025 3:50 PM EDT Routine [facility] [address] [place] [phone] Edy Marcum, DO [address] [place] [address] [facility] Start: 04-09-2025 End: 04-09-2025 Professional / ancillary services management 04/09/2025 3:00 PM EDT Ancillary Procedure [facility] [address] [place] [phone] [facility] Start: 03-11-2025 End: 03-11-2025 Patient encounter procedure [facility] Comment on above: Arrived Start: 03-11-2025 End: 03-11-2026 CBC panel - Blood by Automated count CBC Lab Routine Diabetes mellitus screening Expected: 03/11/2025 (Approximate), Expires: 03/11/2026 [facility] Work Phone: Comment on above: Expected: 03/11/2025 (Approximate), Expires: 03/11/2026 Start: 03-11-2025 End: 03-11-2026 Measurement of glucose 1 hour after glucose challenge for glucose tolerance test Glucose tolerance, 1 hour Lab Routine Diabetes mellitus screening Expected: 03/11/2025 (Approximate), Expires: 03/11/2026 [facility] Comment on above: Expected: 03/11/2025 (Approximate), Expires: 03/11/2026 Start: 03-11-2025 End: 07-11-2025 US for US OB follow up transabdominal approach Imaging Routine Size of fetus inconsistent with dates in second trimester ([facility]) Expected: 03/11/2025, Expires: 07/11/2025 [facility] Comment on above: Expected: 03/11/2025 , Expires: 07/11/2025 Start: 02-10-2025 End: 02-10-2025 Patient encounter procedure 02/10/2025 3:40 PM EDT Routine [facility] [address] [place] [phone] Edy Marcum, [address] [place] [address] [facility] Start: 02-10-2025 End: 02-10-2025 Professional / ancillary services management 02/10/2025 2:30 PM EDT Ancillary Procedure [facility] [address] [facility] [facility] [place] [phone] [facility] Start: 01-08-2025 End: 01-08-2025 Patient encounter procedure [facility] Comment on above: Arrived Start: 01-08-2025 End: 02-07-2025 Alpha fetoprotein, maternal Alpha fetoprotein, maternal Lab Routine 16 weeks gestation of ([facility]) Second trimester ([facility]) Expected: 01/08/2025 (Approximate), Expires: 02/07/2025 [facility] Comment on above: Expected: 01/08/2025 (Approximate), Expires: 02/07/2025 Start: 01-08-2025 End: 04-10-2025 US for US OB 14+ weeks anatomy scan Imaging Routine Screening, , for anatomic survey ([facility]) Expected: 01/08/2025, Expires: 04/10/2025 [facility] Comment on above: Expected: 01/08/2025 , Expires: 04/10/2025 Start: 12-10-2024 End: 12-10-2024 Patient encounter procedure [facility] Comment on above: Arrived Start: 11-19-2024 End: 11-19-2024 Patient encounter procedure 11/19/2024 7:30 AM EDT Office Visit [facility] [address] [facility] [address] [place] [phone] Josr Martinez PA-C [address] [facility], [facility] [address] [place] [address] [facility] Start: 11-08-2024 End: 11-08-2025 ABO/Rh ABO/Rh Lab Routine Missed menses , unspecified gestational age Expected: 11/08/2024 (Approximate), Expires: 11/08/2025 [facility] Comment on above: Expected: 11/08/2024 (Approximate), Expires: 11/08/2025 Start: 11-08-2024 End: 11-08-2025 Blood type and Indirect antibody screen panel - Blood Type and screen Lab Routine Missed menses , unspecified gestational age Expected: 11/08/2024 (Approximate), Expires: 11/08/2025 [facility] Work Phone: Comment on above: Expected: [...] 10/07/2024 9:40 AM EDT Office Visit [facility] [address] [place] [phone] Edy Marcum, [address] [place] [address] [facility] Start: 07-29-2024 Screening for malign ant neoplasm of cervix [facility] Start: 03-17-2024 COVID-19 Vaccine ( season) COVID-19 Vaccine ( season) [facility] Start: 03-17-2024 COVID-19 Vaccine ( season) COVID-19 Vaccine ( season) [facility] Start: 03-17-2024 Influenza vaccination [facility] Start: 02-15-2024 Influenza vaccination Flu vaccine (# 1) [facility] Start: 09-27-2023 End: 09-27-2023 Telemedicine consultation with patient 09/27/2023 10:00 AM EDT Telemedicine [facility] [address] [place] [phone] Ramila Finnegan, RAW MILL OPERATOR-STUDY DIRECTOR [address] [facility], [address] [place] [address] [facility] Start: 05-22-2023 End: 05-29-2023 Bacteria identified in Urine by Culture Urine Culture Microbiology Routine Burning with urination Expected: 05/22/2023 (Approximate), Expires: 05/29/2023 [facility] Work Phone: Comment on above: Expected: 05/22/2023 (Approximate), Expires: 05/29/2023 Start: 05-22-2023 End: 05-22-2024 Urinalysis complete panel - Urine Urinalysis with Reflex Microscopic Lab Routine Burning with urination Expected: 05/22/2023 (Approximate), Expires: 05/22/2024 [facility] Service Area Work Phone: Comment on above: Expected: 05/22/2023 (Approximate), Expires: 05/22/2024 Start: 03-21-2023 End: 03-21-2024 Cobalamin (Vitamin B12) [Mass/volume] in Serum or Plasma Vitamin B12 Lab Routine Low vitamin B12 level Expected: 03/21/2023 (Approximate), Expires: 03/21/2024 [facility] Work Phone: Comment on above: Expected: 03/21/2023 (Approximate), Expires: 03/21/2024 Start: 03-21-2023 End: 03-21-2024 Hepatic function 2000 panel - Serum or Plasma Hepatic function panel Lab Routine Elevated bilirubin Expected: 03/21/2023 (Approximate), Expires: 03/21/2024 [facility] Area Work Phone: Comment on above: Expected: 03/21/2023 (Approximate), Expires: 03/21/2024 Start: 03-21-2023 End: 03-21-2024 Urinalysis complete panel - Urine Urinalysis with Reflex Microscopic Lab Routine Elevated bilirubin Expected: 03/21/2023, Expires: 03/21/2024 [facility] Work Phone: Comment on above: Expected: 03/21/2023 , Expires: 03/21/2024 Start: 03-17-2023 COVID-19 Vaccine ( season) COVID-19 Vaccine ( season) [facility] Start: 03-17-2023 Influenza vaccination Influenza Vacc ine (#1) [facility] Start: 09-14-2022 FUV, Provider: Ramila Finnegan, Status: Pen, Time: 8:15 AM FUV, Provider: Ramila Finnegan, Status: Pen, Time: 8:15 AM [facility] Work Phone: Start: 06-16-2022 EPV, Provider: Ramila Finnegan, Status: Pen, Time: 8:15 AM EPV, Provider: Ramila Finnegan, Status: Pen, Time: 8:15 AM [facility] Work Phone: Start: 01-24-2020 DTaP/Tdap/Td Vaccine s (1 - Tdap) DTaP/Tdap/Td Vaccines (1 - Tdap) [facility] Start: 2019 Screening for malign ant neoplasm of cervix [facility] Start: 2017 DTaP/Tdap/Td vaccine (1 - Tdap) DTaP/Tdap/Td vaccine (1 - Tdap) [facility] Start: 2017 Hepatitis A Vaccines (1 of 2 - Risk 2-dose series) Hepatitis A Vaccines (1 of 2 - Risk 2-dose series) [facility] Start: 2017 Hepatitis B vaccine (1 of 3 - 19+ 3-dose series) Hepatitis B vaccine (1 of 3 - 19+ 3-dose series) [facility] Start: 2017 Hepatitis B Vaccines (1 of 3 - 19+ 3-dose series) Hepatitis B Vaccines (1 of 3 - 19+ 3-dose series) [facility] Start: 01-24-2016 Hepatitis C screening [facility] Start: 2013 HIV screening HIV screen [facility] Start: 2013 HPV vaccine (1 - 3-d ose series) HPV vaccine (1 - 3-dose series) [facility] Start: 2013 HPV Vaccines (1 - 3-dose series) HPV Vaccines (1 - 3-dose series) [facility] Start: 2011 Varicella vaccination Varicell a Vaccines (1 of 2 - 13+ 2-dose series) [facility] Start: 2011 Varicella vaccine (1 of 2 - 13+ 2-dose series) Varicella vaccine (1 of 2 - 13+ 2-dose series) [facility] Start: 2010 Depression Screen Depression Screen [facility] Start: 2009 HPV Vaccines (1 - 2-dose series) HPV Vaccines (1 - 2-dose series) [facility] Start: 1999 MMR Vaccines (1 of 1 - Standard series) MMR Vaccines (1 of 1 - Standard series) [facility] Start: 1999 Varicella vaccination Varicell a Vaccines (1 of 2 - 2-dose childhood series) [facility] Start: 1998 COVID-19 Vaccine (#1) COVID-19 Vacci ne (#1) [facility] Start: 1998 Hepatitis B Vaccines (1 of 3 - 3-dose series) Hepatitis B Vaccines (1 of 3 - 3-dose series) [facility] Start: 1998 HIV screening HIV Screening [facility] Start: 1998 Lipid panel Lipid Panel [facility] Start: 1998 Yearly Adult Physical Yearly Adult P hysical [facility] Bacteria identified in Urine by Culture Urine culture Microbiology Routine Missed menses Ordered: 11/08/2024 [facility] Comment on above: Ordered: 11/08/2024 CBC W Auto Different ial panel - Blood CBC and differential Lab Routine Missed menses , unspecified gestational age Ordered: 11/08/2024 [facility] Comment on above: Ordered: 11/08/2024 CHLAMYDIA TRACHOMATI S (GENITO/STI) CHLAMYDIA TRACHOMATIS (GENITO/STI) Lab Routine Vaginal discharge Ordered: 01/08/2025 [facility] Comment on above: Ordered: 01/08/2025 Cytology Cervical or vaginal smear or scraping study Pap Smear Pathology and Cytology Routine Well woman exam with routine gynecological exam Ordered: 06/10/2024 [facility] Work Phone: Comment on above: Ordered: 06/10/2024 Hemoglobin A1c/Hemoglobin.total in Blood Hemoglobin A1c Lab Routine Missed menses , unspecified gestational age Ordered: 11/08/2024 [facility] Comment on above: Ordered: 11/08/2024 Hepatitis B virus surface Ag [Presence] in Serum or Plasma by Immunoassay Hepatitis B surface antigen Lab Routine Missed menses , unspecified gestational age Ordered: 11/08/2024 [facility] Comment on above: Ordered: 11/08/2024 Hepatitis C virus Ab [Presence] in Serum or Plasma by Immunoassay Hepatitis C antibody Lab Routine Missed menses , unspecified gestational age Ordered: 11/08/2024 [facility] Comment on above: Ordered: 11/08/2024 HIV-1/HIV-2 antigen/antibody combination immunoassay HIV-1 and HIV-2 antibodies Lab Routine Missed menses , unspecified gestational age Ordered: 11/08/2024 [facility] Comment on above: Ordered: 11/08/2024 Neisseria gonorrhoea e DNA [Presence] in Unspecified specimen by CHERYL with probe detection Neisseria gonorrhea DNA probe, direct Lab Routine Vaginal discharge Ordered: 01/08/2025 [facility] Comment on above: Ordered: 01/08/2025 Reagin Ab [Presence] in Serum by RPR RPR Lab Routine Missed menses , unspecified gestational age Ordered: 11/08/2024 [facility] Comment on above: Ordered: 11/08/2024 Rubella antibody, IgG Rubella an tibody, IgG Lab Routine Missed menses , unspecified gestational age Ordered: 11/08/2024 [facility] Comment on above: Ordered: 11/08/2024 SURESWAB(R) ADVANCED VAGINITIS PLUS, TMA SURESWAB(R) ADVANCED VAGINITIS PLUS, TMA Pathology and Cytology Routine Exposure to STD Ordered: 01/08/2025 [facility] Work Phone: Comment on above: Ordered: 01/08/2025 Immunizations Immunization Date Immunization Notes Care Provider Gin box 04-16-2020 influenza virus vaccine, unspecified formulation Edy MARCUM [facility] [place] Payers Date Payer Category Payer Unknown [id number] 2024 [facility] [id number] 2024 [employer] [facility] Member Subscriber Plan / Payer (Effective 2024-Present) Name: Christ Palm Relation to Subscriber: Self Name: Christ Palm Payer ID: [id number] ([facility]) Type: Not on file Address: [address] [place] [id number] 2024 Unknown [id number] 2022 Unknown 2021 Unknown [id number] 1998 Unknown [id number] 20.1.926114.3.579. 2.1069 1998 Unknown [id number] 20.1.635453.3.579. 2.356 1998 Unknown [id number] 20.1.326584.3.579. 2.356 1998 Unknown [id number] 2.840.1.212071.3.579. 2.356 1998 Unknown [id number] 2.0.1.219590.3.579. 2.356 1998 Unknown [id number] 2.840.1.496864.3.579. 2.1245 1998 Unknown [id number] 2.840.1.545072.3.579. 2.1245 1998 Unknown [id number] 2.16840.1.677714.3.579. 2.1243 1998 Unknown [id number] 2.16.840.1.192928.3.579. 2.727 1998 Unknown [id number] 2.16.840.1.028009.3.579. 2.983 1998 Unknown [id number] 2.16840.1.379168.3.579. 2.1244 1998 Unknown [id number] 2.16.840.1.570955.3.579. 2.1244 1998 Unknown [id number] 2.16840.1.261439.3.579. 2.1243 1998 Unknown [id number] 2.16840.1.920211.3.579. 2.1258 1998 Unknown [id number] 2.840.1.558055.3.579. 2.1258 1998 Unknown [id number] 2.16840.1.679033.3.579. 2.1258 1998 Unknown [id number] 2.840.1.619734.3.579. 2.1258 1998 Unknown [id number] 2.16840.1.836368.3.579. 2.1258 1998 Unknown [id number] 2.840.1.697393.3.579. 2.1258 1998 Unknown [id number] 2.16840.1.150528.3.579. 2.1258 1998 Unknown [id number] 2.16840.1.467235.3.579. 2.1258 1998 Unknown [id number] 2.16840.1.560911.3.579. 2.1258 1998 Unknown [id number] 2.16840.1.970464.3.579. 2.1258 1998 Unknown [id number] 2.16.840.1.466202.3.579. 2.1259 1998 Unknown [id number] 2.16.840.1.438706.3.579. 2.1259 Social History Date Type Detail Facility [facility] Tobacco smoking consumption unknown [facility] Start: 05-22-2023 End: 11-24-2023 Does not have living will Does not have living will [facility] Work Phone: Start: 1998 Sex Assigned At Not on file [facility] Work Phone: Start: 05-22-2023 End: 11-24-2023 Gender identity Not on file [facility] Work Phone: Start: 05-04-2020 End: 05-22-2023 Tobacco smoking status NHIS Never smoked tobacco [facility] Work Phone: Start: 08-26-2021 End: 05-22-2023 Tobacco use and exposure Smokeless tobacco non-user [facility] Work Phone: Start: 11-14-2023 End: 09-18-2024 Exposure to SARS-CoV-2 (event) Not sure [facility] How hard is it for y ou to pay for the very basics like food, housing, medical care, and heating Not hard at all [employer] (I/We) worried charbel er (my/our) food would run out before (I/we) got money to buy more. Never true [employer] Start: 1998 Sex assigned at Female [facility] Start: 01-09-2024 Gender identity Identifies as female gender (finding) [facility] Work Phone: Sexual Orientation [facility] Start: 10-28-2009 Sex Female (finding) [facility] Start: 09-29-2024 [facility] Clinical Notes 09-28-2022 to 04-23-2025 Goldie Beckett NP - 04/23/2025 3:10 PM Lauri Gr LPN - 04/09/2025 3:50 PM CATARINA Aragon - 03/11/2025 3:00 PM Gilda Becektt NP - 02/10/2025 3:40 PM EDTPatient Instructions Note Date & Type Note Facility 04-23-2025 History of Presen t illness Narrative Reason for Appointment: Patient ID: Christ Walton is a 25 y.o. female who presents for Routine Visit Patient presents today for Return OB appointment. MEDICATIONS Current Outpatient Medications Medication Instructions magnesium oxide (MAG-OX) 400 mg, Oral, Daily w/o A Vit-Fe Fum-FA (PRENATA PO) Take by mouth ALLERGIES No Known Allergies PROBLEMS Active Ambulatory [...] No family history on file. SURGICAL HISTORY Past Surgical History: Procedure Laterality Date APPENDECTOMY REVIEW OF SYSTEMS Review of Systems: Review of Systems Constitutional: Negative. HENT: Negative. Eyes: Negative. Respiratory: Negative. Cardiovascular: Negative. Gastrointestinal: Negative. Genitourinary: Negative. Musculoskeletal: Negative. Skin: Negative. Neurological: Negative. All other systems reviewed and are negative. Hematological: Negative. Endocrine: Negative. Allergic/Immunologic: Negative. OBJECTIVE Objective: Physical Exam Constitutional: Appearance: Normal appearance. She is well-developed. Cardiovascular: Rate and Rhythm: Normal rate and [...] nursing note reviewed. Exam conducted with a sewing trimmer present. Vitals: Estimated body mass index is 34.48 kg/m as calculated from the following: Height as of 11/08/24: 5' 1 . Weight as of this encounter: 182 lb 8 oz. BP: 128/70 Patient's last menstrual period was 09/06/2024. ASSESSMENT & PLAN ICD-10-CM 1. Third trimester ([facility]) Z34.93 POCT urinalysis dipstick manually resulted 2. 30 weeks gestation of ([facility]) Z3A.30 Return OB: Patient presents today for a routine obstetrics appointment. Patient is currently 31w3d . Patient states she is doing well but has complaints of being tired due to current . Patient has verbalizes frequent movement. labor precautions was discussed/given and patient was instructed to perform kick counts three times a day. Orders Placed This Encounter Procedures POCT urinalysis dipstick manually resulted Follow Up: Patient is to return to office in 2 week for routine OB appointment. Documented by Goldie Beckett NP on behalf of: Goldie Beckett NP documented in this encounter [facility] 04-09-2025 History of Presen t illness Narrative Reason for Appointment: Patient ID: Christ Watlon is a 25 y.o. female who presents for Routine Visit Patient presents today for Return OB appointment. MEDICATIONS Current Outpatient Medications Medication Instructions w/o A Vit-Fe Fum-FA (PRENATA PO) Take by mouth ALLERGIES No Known Allergies PROBLEMS Active Ambulatory [...] No family history on file. SURGICAL HISTORY Past Surgical History: Procedure Laterality Date APPENDECTOMY REVIEW OF SYSTEMS Review of Systems: Review of Systems Constitutional: Negative. HENT: Negative. Eyes: Negative. Respiratory: Negative. Cardiovascular: Negative. Gastrointestinal: Negative. Genitourinary: Negative. Musculoskeletal: Negative. Skin: Negative. Neurological: Negative. All other systems reviewed and are negative. Hematological: Negative. Endocrine: Negative. Allergic/Immunologic: Negative. OBJECTIVE Objective: Physical Exam Constitutional: Appearance: Normal appearance. She is well-developed. Cardiovascular: Rate and Rhythm: Normal rate and [...] nursing note reviewed. Exam conducted with a sewing trimmer present. Vitals: Estimated body mass index is 33.4 kg/m as calculated from the following: Height as of 11/08/24: 5' 1 . Weight as of this encounter: 176 lb 12 oz. BP: 102/60 Patient's last menstrual period was 09/06/2024. ASSESSMENT & PLAN ICD-10-CM 1. Third trimester ([facility]) Z34.93 POCT urinalysis dipstick manually resulted 2. 29 weeks gestation of ([facility]) Z3A.29 Return OB: Patient presents today for a routine obstetrics appointment. Patient is currently 29w3d . Patient states she is doing well but has complaints of being tired due to current . Patient has verbalizes frequent movement. labor precautions was discussed/given and patient was instructed to perform kick counts three times a day. Pt having leg cramps rx for mag oxide sent to pharmacy and tums with calcium advised daily. Orders Placed This Encounter Procedures POCT urinalysis dipstick manually resulted Follow Up: Patient is to return to office in 2 week for routine OB appointment. Documented by Brigitte Gr LPN on behalf of: Edy Marcum DO documented in this encounter [facility] 03-11-2025 History of Presen t illness Narrative Reason for Appointment: Patient ID: Christ Walton is a 25 y.o. female who presents for Routine Visit Patient presents today for Return OB appointment. MEDICATIONS Current Outpatient Medications Medication Instructions magnesium oxide (MAG-OX) 400 mg, Oral, Daily w/o A Vit-Fe Fum-FA (PRENATA PO) Take by mouth ALLERGIES No Known Allergies PROBLEMS Active Ambulatory [...] No family history on file. SURGICAL HISTORY Past Surgical History: Procedure Laterality Date APPENDECTOMY REVIEW OF SYSTEMS Review of Systems: Review of Systems Constitutional: Negative. HENT: Negative. Eyes: Negative. Respiratory: Negative. Cardiovascular: Negative. Gastrointestinal: Negative. Genitourinary: Negative. Musculoskeletal: Negative. Skin: Negative. Neurological: Negative. All other systems reviewed and are negative. Hematological: Negative. Endocrine: Negative. Allergic/Immunologic: Negative. OBJECTIVE Objective: Physical Exam Constitutional: Appearance: Normal appearance. She is normal weight. HENT: Head: Normocephalic. Cardiovascular: Rate and Rhythm: Normal rate. Pulses: Normal pulses. Pulmonary: Effort: Pulmonary effort is normal. Breath sounds: Normal breath sounds. Abdominal: Palpations: Abdomen is soft. Musculoskeletal: General: Normal range of motion. Neurological: General: No focal deficit present. Mental Status: She is alert and oriented to person, place, and time. Psychiatric: Mood and Affect: Mood normal. Behavior: Behavior normal. Thought Content: Thought content normal. Judgment: Judgment normal. Vitals and nursing note reviewed. Vitals: Estimated body mass index is 32.36 kg/m as calculated from the following: Height as of 11/08/24: 5' 1 . Weight as of this encounter: 171 lb 4 oz. BP: 128/78 Patient's last menstrual period was 09/06/2024. ASSESSMENT & PLAN ICD-10-CM 1. Size of fetus inconsistent with dates in second trimester ([facility]) O26.842 OB follow up transabdominal approach 2. Diabetes mellitus screening Z13.1 CBC Glucose tolerance, 1 hour CBC Glucose tolerance, 1 hour 3. Second trimester ([facility]) Z34.92 POCT urinalysis dipstick manually resulted 4. 25 weeks gestation of ([facility]) Z3A.25 Return OB: Patient presents today for a routine obstetrics appointment. Patient is currently 25w3d . Patient states she is doing well but has complaints of being tired due to current . Patient has verbalizes frequent movement. Orders Placed This Encounter Procedures US OB follow up transabdominal approach CBC Glucose tolerance, 1 hour POCT urinalysis dipstick manually resulted Follow Up: Patient is to return to office in 4 week for routine OB appointment. Documented by CATARINA Ragsdale on behalf of: CATARINA Ragsdale documented in this encounter [facility] 02-10-2025 History of Presen t illness Narrative Reason for Appointment: Patient ID: Christ Walton is a 25 y.o. female who presents for Routine Visit Patient presents today for Return OB appointment. MEDICATIONS Current Outpatient Medications Medication Instructions w/o A Vit-Fe Fum-FA (PRENATA PO) Take by mouth ALLERGIES No Known Allergies PROBLEMS Active Ambulatory Problems Diagnosis Date Noted No Active Ambulatory Problems Resolved Ambulatory Problems Diagnosis Date Noted No Resolved Ambulatory Problems No Additional Past Medical History HISTORY PAST MEDICAL HISTORY SOCIAL HISTORY History reviewed. No pertinent past medical history. Social History Tobacco Use Smoking status: Not on file Smokeless tobacco: Not on file Substance Use Topics Alcohol use: Not on file Drug use: Not on file FAMILY HISTORY No family history on file. SURGICAL HISTORY Past Surgical History: Procedure Laterality Date APPENDECTOMY REVIEW OF SYSTEMS Review of Systems: Review of Systems Constitutional: Negative. HENT: Negative. Eyes: Negative. Respiratory: Negative. Cardiovascular: Negative. Gastrointestinal: Negative. Genitourinary: Negative. Musculoskeletal: Negative. Skin: Negative. Neurological: Negative. All other systems reviewed and are negative. Hematological: Negative. Endocrine: Negative. Allergic/Immunologic: Negative. OBJECTIVE Objective: Physical Exam Constitutional: Appearance: Normal appearance. She is well-developed. Cardiovascular: Rate and Rhythm: Normal rate and [...] nursing note reviewed. Exam conducted with a sewing trimmer present. Vitals: Estimated body mass index is 30.07 kg/m as calculated from the following: Height as of 11/08/24: 5' 1 . Weight as of this encounter: 159 lb 1.9 oz. BP: 110/64 Patient's last menstrual period was 09/06/2024. ASSESSMENT & PLAN ICD-10-CM 1. Second trimester ([facility]) Z34.92 POCT urinalysis dipstick manually resulted 2. 21 weeks gestation of ([facility]) Z3A.21 POCT urinalysis dipstick manually resulted Return OB: Patient presents today for a routine obstetrics appointment. Patient is currently 21w1d . Patient states she is doing well but has complaints of being tired due to current . Patient has verbalizes frequent movement. labor precautions was discussed/given and patient was instructed to perform kick counts three times a day. Orders Placed This Encounter Procedures POCT urinalysis dipstick manually resulted Follow Up: Patient is to return to office in 4 week for routine OB appointment. Documented by Goldie Beckett NP on behalf of: Edy Marcum DO documented in this encounter [facility] 01-08-2025 History of Presen t illness Narrative Reason for Appointment: Patient ID: Christ Walton is a 24 y.o. female who presents for Routine Visit Patient presents today for Return OB appointment. MEDICATIONS Current Outpatient Medications Medication Instructions w/o A Vit-Fe Fum-FA (PRENATA PO) Take by mouth ALLERGIES No Known Allergies PROBLEMS Active Ambulatory Problems Diagnosis Date Noted No Active Ambulatory Problems Resolved Ambulatory Problems Diagnosis Date Noted No Resolved Ambulatory Problems No Additional Past Medical History HISTORY PAST MEDICAL HISTORY SOCIAL HISTORY History reviewed. No pertinent past medical history. Social History Tobacco Use Smoking status: Not on file Smokeless tobacco: Not on file Substance Use Topics Alcohol use: Not on file Drug use: Not on file FAMILY HISTORY No family history on file. SURGICAL HISTORY Past Surgical History: Procedure Laterality Date APPENDECTOMY REVIEW OF SYSTEMS Review of Systems: Review of Systems All other systems reviewed and are negative. OBJECTIVE Objective: Physical Exam Constitutional: Appearance: Normal appearance. She is well-developed. Cardiovascular: Rate and Rhythm: Normal rate and [...] nursing note reviewed. Exam conducted with a sewing trimmer present. Vitals: Estimated body mass index is 28.55 kg/m as calculated from the following: Height as of 11/08/24: 5' 1 . Weight as of this encounter: 151 lb 1.9 oz. BP: 104/60 Patient's last menstrual period was 09/06/2024. ASSESSMENT & PLAN ICD-10-CM 1. 16 weeks gestation of ([facility]) Z3A.16 POCT urinalysis dipstick manually resulted Alpha fetoprotein, maternal Alpha fetoprotein, maternal 2. Second trimester ([facility]) Z34.92 POCT urinalysis dipstick manually resulted Alpha fetoprotein, maternal Alpha fetoprotein, maternal 3. Exposure to STD Z20.2 SURESWAB(R) ADVANCED VAGINITIS PLUS, TMA 4. Vaginal discharge N89.8 CHLAMYDIA TRACHOMATIS (GENITO/STI) Neisseria gonorrhea DNA probe, direct 5. Screening, , for anatomic survey ([facility]) Z36.89 US OB 14+ weeks anatomy scan US OB 14+ weeks anatomy scan Return OB: Patient presents today for a routine obstetrics appointment. Patient is currently 16w3d . Patient states she is doing well but has complaints of being tired due to current . Patient has verbalizes frequent movement. Patient cultures obtained without difficulty. Patient given MSAFP and Anatomy. Patient to start on medication for the Folliculitis. Patient to use warm compress to area. Orders Placed This Encounter Procedures US OB 14+ weeks anatomy scan CHLAMYDIA TRACHOMATIS (GENITO/STI) Neisseria gonorrhea DNA probe, direct Alpha fetoprotein, maternal POCT urinalysis dipstick manually resulted Follow Up: Patient is to return to office in 2 week for routine OB appointment. Documented by Roxane Zaidi LPN on behalf of: CATARINA Ragsdale documented in this encounter [facility] 12-10-2024 History of Presen t illness Narrative Reason for Appointment: Patient ID: Christ Walton is a 24 y.o. female who presents for Routine Visit Patient presents today for Return OB appointment. MEDICATIONS Current Outpatient Medications Medication Instructions w/o A Vit-Fe Fum-FA (PRENATA PO) Take by mouth ALLERGIES No Known Allergies PROBLEMS Active Ambulatory Problems Diagnosis Date Noted No Active Ambulatory Problems Resolved Ambulatory Problems Diagnosis Date Noted No Resolved Ambulatory Problems No Additional Past Medical History HISTORY PAST MEDICAL HISTORY SOCIAL HISTORY History reviewed. No pertinent past medical history. Social History Tobacco Use Smoking status: Not on file Smokeless tobacco: Not on file Substance Use Topics Alcohol use: Not on file Drug use: Not on file FAMILY HISTORY No family history on file. SURGICAL HISTORY History reviewed. No pertinent surgical history. REVIEW OF SYSTEMS Review of Systems: Review of Systems Constitutional: Negative. HENT: Negative. Eyes: Negative. Respiratory: Negative. Cardiovascular: Negative. Gastrointestinal: Negative. Genitourinary: Negative. Musculoskeletal: Negative. Skin: Negative. Neurological: Negative. All other systems reviewed and are negative. Hematological: Negative. Endocrine: Negative. Allergic/Immunologic: Negative. OBJECTIVE Objective: Physical Exam Constitutional: Appearance: Normal appearance. She is well-developed. Cardiovascular: Rate and Rhythm: Normal rate and [...] nursing note reviewed. Exam conducted with a sewing trimmer present. Vitals: Estimated body mass index is 27.93 kg/m as calculated from the following: Height as of 11/08/24: 5' 1 . Weight as of this encounter: 147 lb 12.8 oz. BP: 102/68 Patient's last menstrual period was 09/06/2024. ASSESSMENT & PLAN ICD-10-CM 1. First trimester Z34.91 POCT urinalysis dipstick manually resulted 2. 12 weeks gestation of Z3A.12 POCT urinalysis dipstick manually resulted New OB: Patient presents today for 1st time obstetrics appointment with provider. Patient is currently 12w2d . Patients history has been reviewed in great detail including any potential risks. Patient stated she currently has no complaints. Expectations throughout regarding labs, ultrasounds, and appointments have been discussed with the patient in detail. It was reiterated that the patient is to drink 6-8 glasses of water a day, eat 6 small meals a day, do not consume raw or undercooked meat, and stay away from [facility]. Patient has been consulted regarding any further do's and don'ts of . Patient voiced understanding and all questions and concerns were answered. Orders Placed This Encounter Procedures POCT urinalysis dipstick manually resulted Follow Up: Patient is to return in 4 weeks for routine OB appointment. Documented by Brigitte Gr LPN on behalf of: Edy Marcum DO documented in this encounter [facility] 11-08-2024 History of Presen t illness Narrative [...] or undercooked meat, and stay away from [facility]. Patient has also been advised to [...] Nishi Lee MA documented in this encounter [facility] 09-18-2024 History of Presen t illness Narrative [...] ascorbic acid (Vitamin C) 1,000 mg tablet [id number] Yes Take 1 tablet (1,000 mg) by mouth once daily. Historical Provider, Active buPROPion SR (Wellbutrin SR) 150 mg 12 hr tablet [id number] Take 1 tablet (150 mg) by mouth once daily. Patient not taking: Reported on 09/18/2024 Josr Martinez PA-C Active busPIRone (Buspar) 5 mg tablet [id number] Take 1 tablet in AM and 2 tablets in PM Patient not taking: Reported on 09/18/2024 Josr Martinez PA-C Active glycopyrrolate (Robinul) 2 mg tablet [id number] Take 1 tablet (2 mg) by mouth 2 times a day. Patient not taking: Reported on 09/18/2024 Josr Martinez PA-C Active metFORMIN XR 500 mg 24 hr tablet [id number] Yes Take 1 tablet (500 mg) by mouth. Historical Provider, Active norethindrone-e.estradioL-iron (, ,) 1.5 mg-30 mcg (21)/75 mg (7) tablet [id number] Take 1 tablet by mouth once daily. Patient not taking: Reported on 09/18/2024 Josr Martinez PA-C Active oseltamivir (Tamiflu) 75 mg capsule [id number] Take 1 capsule (75 mg) by mouth 2 times a day for 5 days. Delroy Aguirre, [employer] OPERATOR-STUDY DIRECTOR Active History reviewed. No pertinent past medical history. Past Surgical History: Procedure Laterality Date APPENDECTOMY OTHER SURGICAL HISTORY 03/17/2022 [place] tooth extraction ROS See HPI Physical Exam [...] Christ's care are: none Delroy Aguirre CNP [facility] [phone] documented in this encounter [facility] Work Phone: 06-10-2024 History of Presen t [...] nursing note reviewed. Exam conducted with a sewing trimmer present. Vitals: There is no height or [...] Edy Marcum DO documented in this encounter [facility] 01-09-2024 Instructions Brennon Burt MD - 01/09/2024 [...] to prevent spread Please send me a Troodont message if you have any questions or concerns. FOR NON URGENT questions only. Allow up to 72 hours for response. If you have prescription issues or other questions you can email Natacha Maki Digital Health Coordinator, at [email or web address] Rest and drink plenty of fluids Tylenol and or motrin as needed for pain and fever (unless you have been told not to take these because of your personal medical history) Discussed options and precautions (complaint specific and may include) Viral versus bacterial infection; use of medications; possible side effects; appropriate pljv-czv-fkjxclr medications; possible complications and /or when to follow-up. Follow-up in 1 to 2 days if not improving. Follow-up immediately if symptoms worsen. All red flags requiring in person care were discussed. All patient's questions were answered. To connect with a new PCP please visit [email or web address] or call [phone] If experiencing any severe or worsening symptoms [...] days, such as taking additional steps for cleaner greaser air, hygiene, masks, physical distancing, and/or testing [...] precaution, such as taking additional steps for cleaner greaser air, hygiene, masks, physical distancing, and/or testing when you will be around other people indoors. This is especially important to protect people with factors that increase their risk of severe illness from respiratory viruses. Avoid immunocompromised, elderly, women, infants etc Have a low threshold for in person evaluation if your symptoms worsen. documented in this encounter [facility] Work Phone: 11-24-2023 History of Presen t [...] or sooner prn. documented in this encounter [facility] Work Phone: 05-22-2023 History of Presen t illness Narrative Christ Palm is a 23 y.o. female who presents virtually today for a sick visit Pt location in [place] and consent obtained. Telemedicine appropriate evaluation completed. [...] Microscopic Urine Culture documented in this encounter [facility] Work Phone: 05-22-2023 Instructions FABI Interiano - 05/22/2023 7:50 PM EST Thank you for seeing me today. It was a pleasure to meet you! #BURNING W/URINATION, MALODOROUS URINE UA/CULTURE ORDERED; PLEASE GIVE SPECIMEN JENNIFER Rx Macrobid x 5 days, do not begin until you give urine specimen Drink at least 64 oz water daily Avoid caffeine F/U WITH PCP documented in this encounter [facility] Work Phone: 03-21-2023 History of Presen t [...] December of 2023. Is now working in [place] She does report CP that happens sporadically, [...] sooner if needed documented in this encounter [facility] Work Phone: 09-28-2022 Note Post Operative Note: PreOp Diagnosis: Acute appendicitis Post-Procedure Diagnosis: Acute appendicitis Procedure: Laparoscopic appendectomy Surgeon: Frank Goff Resident/Fellow/Other Digital Marketing Coordinator: n/a Anesthesia: General Estimated Blood Loss (mL): [...] Last Updated: 28-Sep-2022 18:49 by Frank Goff) [facility] 09-28-2022 Note History of Present I llness: [...] this patient. Objective: Objective Information: T PRBPMAPSpO2 [id number]/7198% Date/Time09/28 7: 13: 13: 13: 13:00 Range(36.3C - 36.3C [...] Allergies, Medications Nikky (more content not included)... [facility] 09-28-2022 Miscellaneous Notes Post Operative Note: PreOp Diagnosis: Acute appendicitis Post-Procedure Diagnosis: Acute appendicitis Procedure: Laparoscopic appendectomy Surgeon: Frank Goff Resident/Fellow/Other Digital Marketing Coordinator: n/a Anesthesia: General Estimated Blood Loss (mL): [...] by Frank Goff) documented in this encounter [facility] Work Phone: 09-28-2022 Note Formatting of this n ote is different from the original. Post Operative Note: PreOp Diagnosis: Acute appendicitis Post-Procedure Diagnosis: Acute appendicitis Procedure: Laparoscopic appendectomy Surgeon: Frank Goff Resident/Fellow/Other Digital Marketing Coordinator: n/a Anesthesia: General Estimated Blood Loss (mL): [...] Last Updated: 28-Sep-2022 18:49 by Frank Goff) T [facility] Work Phone: 09-28-2022 History and physical note [...] Referenced From Triage - ED 28-Sep-2022 07:55 [facility] Work Phone: 09-28-2022 History and physical note [...] ED 28-Sep-2022 07:55 documented in this encounter [facility] Work Phone: Evaluation + Plan note No data available for this section [facility] Evaluation note Diagnosis Elevated bilirubin- Primary Low vitamin B12 level Generalized anxiety disorder documented in this encounter [facility] Work Phone: Evaluation note* Diagnosis Burning with urination- Primary Dysuria documented in this encounter [facility] Work Phone: Evaluation note* Diagnosis Unspecified abdominal pain Unspecified acute appendicitis Contact with and (suspected) exposure to covid-19 Nicotine dependence, other tobacco product, uncomplicated Lower abdominal pain, unspecified Low back pain, unspecified documented in this encounter [facility] Work Phone: Evaluation note* Diagnosis Hyperhidrosis Generalized hyperhidrosis Premenstrual migraine Menstrual migraine, without mention of intractable migraine without mention of status migrainosus Premenstrual syndrome Premenstrual tension syndromes Generalized anxiety disorder documented in this encounter [facility] Work Phone: Evaluation note* Diagnosis Well woman exam with routine gynecological exam Routine gynecological examination Insulin resistance Other abnormal glucose [facility] Diagnosis Traveler's diarrhea- Primary Infectious diarrhea documented in this encounter [facility] Work Phone: Evaluation note* Diagnosis Influenza A- Primary Influenza with other respiratory manifestations Acute upper respiratory infection Acute upper respiratory infections of unspecified site documented in this encounter [facility] Work Phone: Evaluation note* Diagnosis Missed menses , unspecified gestational age Encounter for supervision of normal first in first trimester [facility] Diagnosis First trimester state, incidental 12 weeks gestation of [facility]* Diagnosis 16 weeks gestation of ([facility]) Second trimester ([facility]) state, incidental Exposure to STD Vaginal discharge Leukorrhea, not specified as infective Screening, , for anatomic survey ([facility]) Encounter for anatomic survey Folliculitis Other specified disease of hair and hair follicles [facility] Diagnosis Second trimester ([facility]) state, incidental 21 weeks gestation of ([facility]) [facility] Diagnosis Size of fetus inconsistent with dates in second trimester ([facility])- Primary Diabetes mellitus screening Screening for diabetes mellitus Second trimester ([facility]) state, incidental 25 weeks gestation of ([facility]) [facility] Diagnosis Third trimester ([facility]) state, incidental 29 weeks gestation of ([facility]) Leg cramps in ([facility]) [facility] Diagnosis Third trimester ([facility]) state, incidental 30 weeks gestation of ([facility]) documented in this encounter [facility] [...] pills. she is sexually active. follows with SEISMOGRAPH OPERATOR HELPER, on oral contraceptive. * History: 0. * Cervical cancer screening: cancer screening reviewed and current. * Metabolic screening: no previous lipid profile. * Christ is a 22 yo female here today to establish care, she has a PMHx significant CHRIS, PMS, and Hyperhidrosis. 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 She reports she was treated with Prozac however was not tolerated, she was seeing virtual psychiatrist and she doesn t feel comfortable with that type of care, prefers in person. * Follows with SEISMOGRAPH OPERATOR HELPER regarding PMS symptoms including nausea and migraine [facility] Work Phone: History of Present illness Narrative* [...] stressors * Denies any acute Health concerns [facility] Work Phone: History of Present illness Narrative* Christ is a 22 yo female, here today fro follow up on vitamin deficiency and anxiety. * She is taking B complex daily vitamin D 2000 units daily * feeling well, denies any anxiety symptoms. * recently engaged, working night time babysitter * stress level improved. * Acute concern; has been having episode of elevated HR at rest, she reports HR was at 130's at highest, she does report energy drink and occasional pop consumption. [facility] Work Phone: Hospital Discharge instructions No data available for this section [facility] Progress note No data available for this section [facility] Reason for referral (narrative)* Consultation (Routine) - Authorized Specialty Diagnoses / Procedures Referred By Contac t Referred To Contact Primary Care Procedures Follow Up In Primary Care - Health Maintenance Ramila Finnegan, RAW MILL OPERATOR-STUDY DIRECTOR [address] [facility], [address] [address] Referral ID Status Reason Start Date Expiration Date V isits Requested Visits Authorized [id number] Authorized 03/21/2023 09/17/2023 1 1 [facility] Work Phone: Reason for referral (narrative)* Consultation (Routine) - Authorized Specialty Diagnoses / Procedures Referred By Contac t Referred To Contact Primary Care Procedures Follow Up In Primary Care - [facility] Josr Martinez PA-C [address] [facility], [place] [address] Referral ID Status Reason Start Date Expiration Date V isits Requested Visits Authorized [id number] Authorized 11/24/2023 11/23/2024 1 1 [facility] Work Phone: Summary Purpose Family History No [...] FoundNo Advanced Directives Records Found Chief Complaint PILE DRIVING SETTER - establishing care.3 mth ov3 month. Additional Source Comments <item> Privacy Markings (unrecogniz ed section and content) Section Author: Caitlin Uriarte PROHIBITION ON REDISCLOSURE OF CONFIDENTIAL INFORMATION This notice accompanies a disclosure of information concerning a client made to you with the consent of such client. INFORMATION SOURCE (unrecogn ized section and content) DATE CREATED AUTHOR 10/03/2021 [facility] DATE CREATED AUTHOR AUTHOR'S ORGANIZ ATION 10/05/2022 [facility] DATE CREATED AUTHOR AUTHOR'S ORGANIZ ATION 10/20/2022 [facility] DATE CREATED AUTHOR AUTHOR'S ORGANIZ ATION 10/20/2022 [facility] DATE CREATED AUTHOR AUTHOR'S ORGANIZ ATION 04/09/2023 [facility] DATE CREATED AUTHOR AUTHOR'S ORGANIZ ATION 05/28/2023 [facility] DATE CREATED AUTHOR AUTHOR'S ORGANIZ ATION 09/20/2024 [facility] DATE CREATED AUTHOR AUTHOR'S ORGANIZ ATION 10/13/2024 [facility] DATE CREATED AUTHOR AUTHOR'S ORGANIZ ATION 10/15/2024 [facility] DATE CREATED AUTHOR AUTHOR'S ORGANIZ ATION 10/24/2024 [facility] DATE CREATED AUTHOR AUTHOR'S ORGANIZ ATION 11/22/2024 [facility] DATE CREATED AUTHOR AUTHOR'S ORGANIZ ATION 04/26/2025 [facility] d[facility] Specialists EPIC Reason for Visit (unrecogniz ed section and content) Reason Comments Anxiety Reason Comments burning with urination Reason Comments Other ABD PAIN Reason Comments pt here for med check Reason Comments Gynecologic Exam Reason Comments Flu Symptoms Cough, body aches, f ever, congestion x 1 day Reason Comments Amenorrhea Reason Comments Routine Visit Care Teams (unrecognized sec tion and content) Garnett Room Worker Relationship Specialty Start Date End Date Ramila Finnegan APRN-STUDY DIRECTOR [address] [facility], [address] [place] [address] PCP - General 03/17/22 Ramila Finnegan APRN-STUDY DIRECTOR [address] [facility], [address] [place] [id number] PCP - MMO ACO PCP 04/16/22 Garnett Room Worker Relationship Specialty Start Date End Date Ramila Finnegan, RAW MILL OPERATOR-STUDY DIRECTOR [address] [facility], [address] [place] [address] PCP - General 03/17/22 Ramila Finnegan, RAW MILL OPERATOR-STUDY DIRECTOR [address] [facility], [address] [place] [address] PCP - MMO ACO PCP 04/16/22 Garnett Room Worker Relationship Specialty Start Date End Date Ramila Finnegan RAW MILL OPERATOR-STUDY DIRECTOR [address] [facility], [address] [place] [address] PCP - General 03/17/22 Ramila Finnegan, RAW MILL OPERATOR-STUDY DIRECTOR [address] [facility] [address] [place] [address] PCP - MMO ACO PCP 04/16/22 Garnett Room Worker Relationship Specialty Start Date End Date Gladys Esteban, RAW MILL OPERATOR-STUDY DIRECTOR [address] [place] [address], [address] [place] [address] PCP - MMO ACO PCP 09/15/23 Josr Martinez PA-C [address] [facility] [address] [place] [address] PCP - General Family Medicine 11/24/23 Garnett Room Worker Relationship Specialty Start Date End Date Ihsan Camarillo MD [address] [place] [address] PCP - General Family Medicine 08/26/21 Garnett Room Worker Relationship Specialty Start Date End Date Gladys Esteban, RAW MILL OPERATOR-STUDY DIRECTOR [address] [facility], [address] [place] [address] PCP - MMO ACO PCP 09/15/23 Josr Martinez PA-C [address] [facility], [address] [place] [address] PCP - General Family Medicine 11/24/23 Garnett Room Worker Relationship Specialty Start Date End Date Josr Martinez PA-C [address] [facility] [address] [place] [address] PCP - General Family Medicine 11/24/23 Garnett Room Worker Relationship Specialty Start Date End Date Josr Martinez MD [address] [facility], [address] [place] [address] PCP - General Family Medicine 11/08/24 Garnett Room Worker Relationship Specialty Start Date End Date Josr Martinez MD [address] [facility], [address] [place] [address] PCP - General Family Medicine 11/08/24 Garnett Room Worker Relationship Specialty Start Date End Date Josr Martinez MD [address] [facility] [address] [place] [address] PCP - General Family Medicine 11/08/24 Garnett Room Worker Relationship Specialty Start Date End Date Josr Martinez MD [address] [facility], [address] [place] [address] PCP - General Family Medicine 11/08/24 Garnett Room Worker Relationship Specialty Start Date End Date Josr Martinez MD [address] [facility], [address] [place] [address] PCP - General Family Medicine 11/08/24 Garnett Room Worker Relationship Specialty Start Date End Date Josr Martinez MD [address] [facility], [address] [place] [address] PCP - General Family Medicine 11/08/24 Garnett Room Worker Relationship Specialty Start Date End Date Josr Martinez MD [address] [facility], [address] [place] [address] PCP - General Family Medicine 11/08/24 Garnett Room Worker Relationship Specialty Start Date End Date Josr Martinez MD [address] [facility], [address] [place] [address] PCP - General Family Medicine 11/08/24 Garnett Room Worker Relationship Specialty Start Date End Date Josr Martinez MD [address] [facility] [address] [place] [address] PCP - General Family Medicine 11/08/24 Garnett Room Worker Relationship Specialty Start Date End Date Josr Martinez MD [address] [facility], [address] [place] [address] PCP - General Family Medicine 11/08/24 FOR [...] BE BASED ON THE PRIMARY CLINICAL RECORDS. [facility] [employer] [facility]. provides no warranty or guarantee of the accuracy or completeness of information in this document.
[2025-04-30 10:51] VITALS: BP 108/67; PULSE 100
[2025-04-30 11:25] LABS: Hematocrit 30.2 % (36.0-48.0); Hemoglobin 10.5 g/dL (12.0-16.0); Immature Granulocytes Abs Auto 0.11 10^3/uL (0.00-0.03); Immature Granulocytes Pct Auto 0.9 % (0.0-0.5); Lymphocytes Absolute Auto 1.8 10^3/uL (1.2-3.8); Mean Corpuscular HGB Conc 34.8 g/dL (29.9-35.2); Mean Corpuscular Hemoglobin 30.5 pg (26.7-34.0); Mean Corpuscular Volume 87.8 fL (81.0-99.0); Platelet Count 239 10^3/uL (150-450); Red Blood Count 3.44 10^6/uL (4.20-5.40); White Blood Count 12.7 10^3/uL (4.0-11.0)
[2025-04-30 11:44] VITALS: BP 96/53; PULSE 105
[2025-04-30 11:50] LABS: Protein Creatinine Ratio Urine 0.24; Total Protein Urine Random 6.7 mg/dL (<=11.9)
[2025-04-30 11:51] LABS: Alanine Aminotransferase 21 U/L (14-59); Aspartate Amino Transferase 16 U/L (15-37); Blood Urea Nitrogen 4.0 mg/dL (7.0-18.0); Estimated GFR (African America >60 (>=60 mL/min/1.73m^2); Estimated GFR (Non-African Ame >60 (>=60 mL/min/1.73m^2); Uric Acid 4.6 mg/dL (2.6-6.0)
[2025-04-30 12:05] LABS: INR 0.93; Partial Thromboplastin Time 24.3 sec (22.3-36.2); Prothrombin Time 9.9 sec (9.0-11.6)
[2025-04-30 12:12] LABS: Fibrinogen 427 mg/dL (200-400)
== END 2025-04-30 12:35 | disposition home or self-care (01) ==
PROVIDERS: Admitting Provider Obstetrics & Gynecology; PCP Physician Assistant; Visit Provider Obstetrics & Gynecology
DX: O99.891 Other specified diseases and conditions complicating pregnancy (principal); R79.89 Other specified abnormal findings of blood chemistry; R03.0 Elevated blood-pressure reading, without diagnosis of hypertension; Z3A.32 32 weeks gestation of pregnancy
CPT/HCPCS: 36415; 59025; 82565; 82570; 84156; 84450; 84460; 84520; 84550; 85025; 85384; 85610; 85730; G0378; G0379

== ENCOUNTER 2025-05-26 21:18 | Outpatient (REF) | payer BC, SELFPAY ==
--- OUTSIDE RECORDS SUMMARY | 2025-05-20 08:50 | XMS_ITS | Encounter Summary ---
Author Organization [facility] Address [address] [facility] [place] [address] Care Team Providers Care Ar Manager Name Role Phone Josr Martinez MD Primary Care Provider [phone] Reason for Visit * ReasonCommentsRoutine Visit Encounter Details DateTypeDepartmentCare Team (Latest Contact Info)Pjwkvdbfqfh30/04/2025 8:50 AM ESTRoutine [facility] Connie MACKEY [address] [place] [phone] Lissa Steward PA [address] [place], [facility] Third trimester ([facility]); 35 weeks gestation of ([facility]) Social History Tobacco UseTypesPacks/DayYears UsedDateSmoking Tobacco: Never Assessed Estimated Date of XewlnbxcArntrrxcCgv15/07/2025Based on UltrasoundSex and Gender InformationValueDate RecordedSex Assigned at BirthNot on fileLegal SexFemale 11/21/2023 2:18 PM EDTGender IdentityNot on fileSexual OrientationNot on file documented as of this encounter Last Filed Vital Signs Vital SignReadingTime TakenCommentsBlood Xllkhjbi021/7405/20/2025 8:57 AM EST Pulse--Temperature--Respiratory Rate--Oxygen Saturation--Inhaled Oxygen Concentration--Nsasmg76.7 kg (182 lb 6.4 oz)05/20/2025 8:57 AM ESTHeight--Body Mass Index34.4604 10:59 AM EDTdocumented in this encounter Progress Notes * CATARINA Ragsdale - 05/20/2025 8:50 AM EST Reason for Appointment: Patient ID: Karen Walton is a 25 y.o. female who presents for Routine Visit Patient presents today for Return OB appointment. MEDICATIONS Current Outpatient Medications Medication Instructions calcium carbonate (Os-Barry) 1250 (500 Ca) MG chewable tablet 1 tablet, Daily magnesium oxide (MAG-OX) 400 mg, Oral, Daily ALLERGIES No Known Allergies PROBLEMS Active Ambulatory [...] reviewed. Vitals: Estimated body mass index is 34.46 kg/m?? as calculated from the following: Height as of 11/08/24: 5' 1 . Weight as of this encounter: 182 lb 6.4 oz. BP: 102/74 Patient's last menstrual period was 09/06/2024. Assessment/Plan ICD-10-CM 1. Third trimester ([facility]) Z34.93 2. 35 weeks gestation of ([facility]) Z3A.35 POCT urinalysis dipstick manually resulted Return OB: Patient presents today for a routine obstetrics appointment. Patient is currently 35w2d . Patient states she is doing well but has complaints of being tired due to current . Patient has verbalizes frequent movement. labor precautions was discussed/given and patient was instructed to perform kick counts three times a day. Patient will have GBS next week Orders Placed This Encounter Procedures POCT urinalysis dipstick manually resulted Follow Up: Patient is to return to office in 1 week for routine OB appointment. Documented by CATARINA Ragsdale on behalf of: CATARINA Ragsdale documented in this encounter Plan of Treatment DateTypeDepartmentCare Team (Latest Contact Info)Cxzpybzqtok25/19/2025 3:20 PM ESTRoutine NOMLatisha MACKEY [address] [place] [phone] Lissa Steward PA [address] [place] [address] 06/17/2025 10:00 AM ESTOffice Visit NOMLatisha MACKEY [address] [place] [phone] Edy Marcum DO [address] [place], [place] [id number] documented as of this encounter Procedures Procedure NamePriorityDate/TimeAssociated DiagnosisCommentsPOCT URINALYSIS IRIEFTKZEuujgzv01/04/2025 9:05 AM EST 35 weeks gestation of ([facility]) documented in this encounter Results * POCT urinalysis dipstick manually resulted (05/20/2025 9:05 AM EST)Component ValueRef RangeTest MethodAnalysis TimePerformed AtPathologist SignatureColor, UAYellowClarity, UAClearGlucose, UANegativeNegative - 2000(110) ++++ mg/dL Bilirubin, UANegativeNegative - 4(70) +++ mg/dLKetones, UANegativeNegative - 160(16) ++++ mg/dLSpec Grav, UA1.0101 - 1.03Blood, UANegativeNegative - 50 Richard/mcLpH, UA6.55 - 9Protein, UANegativeNegative - 2000(20) ++++ mg/dL Urobilinogen, UA1.00.2 - 12 mg/dLLeukocytes, UANegativeNegative - 500+++ Garry/mcLNitrite, UANegativeNegative - PositiveSpecimen (Source)Anatomical Location / LateralityCollection Method / VolumeCollection TimeReceived Time Urine05/20/2025 9:05 AM EST Narrative Authorizing ProviderResult TypeResult StatusCarney Hospital OF CARE TEST ENTER/EDIT ORDERABLESFinal Result documented in this encounter Visit Diagnoses Diagnosis Third trimester ([facility]) state, incidental 35 weeks gestation of ([facility]) documented in this encounter Care Teams Team MemberRelationshipSpecialtyStart DateEnd Date Josr Martinez MD [address] [facility] [address] [place] [address] PCP - GeneralFamily Medicine11/08/24documented as of this encounter
--- OUTSIDE RECORDS SUMMARY | 2025-05-26 16:00 | XMS_ITS | Encounter Summary ---
Author Organization [facility] Address [address] [place] [address] Care Team Providers Care Skein Mercerizing Machine Operator Name Role Phone Josr Martinez MD Primary Care Provider [phone] Reason for Visit * ReasonCommentsRoutine Visit Encounter Details DateTypeDepartmentCare Team (Latest Contact Info)Teteypyasik69/10/2025 4:00 PM ESTRoutine [facility] Connie OBGYJessica [address] [place] [phone] Lissa Steward PA [address] [facility] [address] [place], [facility]11 Third trimester ([facility]); 36 weeks gestation of ([facility]) Social History Tobacco UseTypesPacks/DayYears UsedDateSmoking Tobacco: NeverSmokeless Tobacco: Current Tobacco Cessation:Ready to Q uit: Not Asked; Counseling Given: Not Answered Comments:Vape Alcohol UseStandard Drinks/WeekCommentsNot Currently0 (1 standard drink = 0.6 oz pure alcohol)Estimated Date of OtorwmujJmomraeeNof51/07/2025Based on UltrasoundSex and Gender InformationValueDate RecordedSex Assigned at BirthNot on fileLegal RbmJootic95/07/2024 2:18 PM EDTGender IdentityNot on fileSexual OrientationNot on filedocumented as of this encounter Last Filed Vital Signs Vital SignReadingTime TakenCommentsBlood Scpjotwa021/6205/26/2025 4:19 PM EST Pulse--Temperature--Respiratory Rate--Oxygen Saturation--Inhaled Oxygen Concentration--Zvxvap29.1 kg (183 lb 1.9 oz)05/26/2025 4:19 PM ESTHeight--Body Mass Index34.6011/08/2024 10:59 AM EDTdocumented in this encounter Plan of Treatment DateTypeDepartmentCare Team (Latest Contact Info)Zgedjvoestq32/19/2025 3:20 PM ESTRoutine [facility] Connie MACKEY [address] [place] [phone] Lissa Ste[address] PA [address] [facility] [facility] [address] [place], [place] [id number] 06/17/2025 10:00 AM ESTOffice Visit NOMLatisha MACKEY [address] [place] [address] [place] [address] Edy Marcum DO [address] [facility] [facility] [place] [address] NameTypePriorityAssociated DiagnosesOrder ScheduleCULTURE, GROUP B STREP WITH SUSCEPTIBLITYLabRoutine Third trimester ([facility]) Expected: 05/26/2025, Expires: 05/26/2026documented as of this encounter Procedures Procedure NamePriorityDate/TimeAssociated DiagnosisCommentsPOCT URINALYSIS NVNIMRIGIzolgze38/10/2025 4:19 PM EST 36 weeks gestation of ([facility]) documented in this encounter Results * (ABNORMAL) POCT urinalysis dipstick manually resulted (05/26/2025 4:19 PM EST) ComponentValueRef RangeTest MethodAnalysis TimePerformed AtPathologist SignatureColor, UAYellowClarity, UAClearGlucose, UANegativeNegative - 2000(110) ++++ mg/dLBilirubin, UANegativeNegative - 4(70) +++ mg/dLKetones, UA PositiveNegative - 160(16) ++++ mg/dLSpec Grav, UA1.0051 - 1.03Blood, UA NegativeNegative - 50 Richard/mcLpH, UA7.05 - 9Protein, UANegativeNegative - 1999(20) ++++ mg/dLUrobilinogen, UA1.00.2 - 12 mg/dLLeukocytes, UANegative Negative - 500+++ Garry/mcLNitrite, UANegativeNegative - PositiveSpecimen (Source)Anatomical Location / LateralityCollection Method / VolumeCollection TimeReceived HfsdDqvzt32/10/2025 4:19 PM EST Narrative Authorizing ProviderResult TypeResult StatusPhaneuf Hospital OF CARE TEST ENTER/EDIT ORDERABLESFinal Result documented in this encounter Visit Diagnoses Diagnosis Third trimester ([facility]) state, incidental 36 weeks gestation of ([facility]) documented in this encounter Care Teams Team MemberRelationshipSpecialtyStart DateEnd Date Josr Martinez MD [address] [facility], [place] [address] PCP - GeneralFamily Medicine11/08/24documented as of this encounter
--- OUTSIDE RECORDS SUMMARY | 2025-05-26 21:25 | XMS_ITS | Encounter Summary ---
Author Organization [facility] Address [address] [facility] [place] [address] Care Team Providers Care Carton Maker Name Role Phone Josr Martinez MD Primary Care Provider [phone] Encounter Details DateTypeDepartmentCare Team (Latest Contact Info)Zvhdwrcxlpq56/09/2025Travel Social History Tobacco UseTypesPacks/DayYears UsedDateSmoking Tobacco: Never Assessed Estimated Date of VxwxrpgkAmvfomulYbd62/07/2025Based on UltrasoundSex and Gender InformationValueDate RecordedSex Assigned at BirthNot on fileLegal SexFemale 11/21/2023 2:18 PM EDTGender IdentityNot on fileSexual OrientationNot on file documented as of this encounter Plan of Treatment DateTypeDepartmentCare Team (Latest Contact Info)Fddwraviutv89/19/2025 3:20 PM ESTRoutine [facility] Connie MACKEY [address] [place] [address] Lissa Steward PA [address] [facility] [address] [place], [facility]11 06/17/2025 10:00 AM ESTOffice Visit [facility]OM[facility] Connie MACKEY [address] [place] [address] Edy Marcum DO [address] [facility] [address] [place], [facility]11 documented as of this encounter Visit Diagnoses Not on filedocumented in this encounter Care Teams Team MemberRelationshipSpecialtyStart DateEnd Date Josr Martinez MD [address] [facility] [place], [address] [place] [address] PCP - GeneralFamily Medicine11/08/24documented as of this encounter
--- OUTSIDE RECORDS SUMMARY | 2025-05-26 21:25 | XMS_ITS | Encounter Summary ---
Author Organization [facility] Address [address] [facility] [place] [address] Care Team Providers Care Weeder Name Role Phone Josr Martinez MD Primary Care Provider [phone] Encounter Details DateTypeDepartmentCare Team (Latest Contact Info)Noomsswztsg52/10/2025amboo flowsheet NOMLatisha MACKEY [address] [place] [address] [place] [address] Lissa Steward PA [address] [place] [address] [address] [place], [place] [address] Social History Tobacco UseTypesPacks/DayYears UsedDateSmoking Tobacco: NeverSmokeless Tobacco: Current Comments:Vape Alcohol UseStandard Drinks/WeekCommentsNot Currently0 (1 standard drink = 0.6 oz pure alcohol)Estimated Date of UlwrrigjAswcbpnvYtd53/07/2025ased on UltrasoundSex and Gender InformationValueDate RecordedSex Assigned at BirthNot on fileLegal HmwZlqpgo11/07/2024 2:18 PM EDTGender IdentityNot on fileSexual OrientationNot on filedocumented as of this encounter Plan of Treatment DateTypeDepartmentCare Team (Latest Contact Info)Cnuxcjgxyno91/19/2025 3:20 PM ESTRoutine NOMLatisha MACKEY [address] [facility] [place] [address] Lissa Steward, PA [address] [facility] [address] [place], [facility]11 06/17/2025 10:00 AM ESTOffice Visit [facility]OM[facility] Connie MACKEY [address] [facility] [place] [phone] Edy Marcum DO [address] [facility] [place] [address] documented as of this encounter Visit Diagnoses Not on filedocumented in this encounter Care Teams Team MemberRelationshipSpecialtyStart DateEnd Date Josr Martinez MD [address] [facility], [facility] [address] [place] [address] PCP - GeneralFamily Medicine11/08/24documented as of this encounter
--- OUTSIDE RECORDS SUMMARY | 2025-05-26 21:25 | XMS_ITS | Clinical Summary ---
Author Organization [facility] Address [address] [place] [address] Phone Care Team Providers Care Pickling Machine Operator Name Role Phone Josr Martinez PA-C Primary Care Provider [phone] Allergies No known active allergies Medications MedicationSigDispense QuantityRefillsLast FilledStart DateEnd DateStatus ascorbic acid (Vitamin C) 1,000 mg tablet Take 1 tablet (1,000 mg) by mouth once daily.Active norethindrone-e.estradioL-iron (June FE 1.12/13, 28,) 1.5 mg-30 mcg (21)/75 mg (7) tablet Indications:Premenstrual migraine,Premenstrual syndromeTake 1 tablet by mouth once daily. 28 tablet 12011/24/2023ctive Additional Information Patient not taking.Reported on 11/19/2024 busPIRone (Buspar) 5 mg tablet Indications:Generalized anxiety disorderTake 1 tablet in AM and 2 tablets in PM 270 tablet ctive Additional Information Patient not taking.Reported on 11/19/2024 buPROPion SR (Wellbutrin SR) 150 mg 12 hr tablet Indications:Generalized anxiety disorderTake 1 tablet (150 mg) by mouth once daily. 90 tablet ctive Additional Information Patient not taking.Reported on 11/19/2024 glycopyrrolate (Robinul) 2 mg tablet Indications:HyperhidrosisTake 1 tablet (2 mg) by mouth 2 times a day. 180 tablet ctive Additional Information Patient not taking.Reported on 11/19/2024 8-QLLQ-SPHEX ACID-OM3 ORAL Take by mouth.Active Active Problems ProblemNoted DateDiagnosed DateLow blood sugar03/21/2023Low vitamin B12 level 03/21/2023Vitamin D ycelqvayzroab33/05/2023Elevated dbsrwfhug68/05/2023 Hkvezcgrxrwbp60/05/2023remenstrual tutaexir25/05/2023remenstrual syndrome 03/21/2023eneralized anxiety anwyjtce32/14/2023 Family History Medical HistoryRelationNameCommentsHypertensionFatherDiabetesMaternal GrandfatherAlzheimer's diseaseMaternal GrandmotherDiabetesPaternal Grandfather Heart diseasePaternal GrandfatherRelationNameStatusCommentsFatherMaternal GrandfatherMaternal GrandmotherPaternal Grandfather Social History Tobacco UseTypesPacks/DayYears UsedDateSmoking Tobacco: NeverSmokeless Tobacco: Never Tobacco Cessation:Counseling Given: Not Answered PHQ-2AnswerDate RecordedPatient Health Questionnaire-2 Uisop806 CommentsUnknownSex and Gender InformationValueDate RecordedSex Assigned at Pjlrka1001/09/2024 2:41 PM EDTLegal SvuJrmdyi21/25/2022 10:21 PM ESTGender GzrbdzugWgopvz02/25/2024 2:41 PM EDTSexual OrientationNot on file Last Filed Vital Signs Vital SignReadingTime TakenCommentsBlood Tzevglrw634/78011/19/2024 7:27 AM EDT Odinj641711/19/2024 7:27 AM SJMPilgvxokpyc37.6 ??C (97.8 ??F)09/18/2024 3:27 PM ESTRespiratory Qpuu859409/18/2024 3:27 PM ESTOxygen Rffefhrksi58%11/19/2024 7:27 AM EDTInhaled Oxygen Concentration--Kvcsct52.3 kg (144 lb)11/19/2024 7:27 AM EDT Wwrnkw976.8 cm (5' 2.5 )11/19/2024 7:27 AM EDTBody Mass Index25.9211/19/2024 7:27 AM EDT Plan of Treatment DateTypeDepartmentCare Team (Latest Contact Info)Vapsfscqsgi21/07/2026 8:00 AM EDTOffice Visit [facility] [address] [place] [address] Josr Martinez PA-C [address] [facility] [place], [address] [place] [address] Health MaintenanceDue DateLast DoneCommentsHIV Dshqydayg1998Lipid Panel 1998MMR Vaccines (1 of 1 - Standard series)1999Hepatitis C Screening 01/24/2016Hepatitis B Vaccines (1 of 3 - 19+ 3-dose series)2017HPV/Cotest 2019DTaP/Tdap/Td Vaccines (1 - Tdap)01/24/2020HPV Vaccines (1 - 3-dose standard series)2025Influenza Vaccine (#1)5COVID-19 Vaccine (1 - season)5Yearly Adult Pujmmuzx88/26/06458108/10/2023, 07/27/2022, 09/25/2020ervical Cancer Fweeehbpn63/25/2027Pap Smear7108/10/2023, 07/29/2021Zoster Vaccines (1 of 2)01/24/2048HIB VaccinesAged OutNo longer eligible based on patient's age to complete this topicHepatitis A VaccinesAged OutNo longer eligible based on patient's age to complete this topicIPV Vaccines Aged OutNo longer eligible based on patient's age to complete this topic Meningococcal VaccineAged OutNo longer eligible based on patient's age to complete this topicPneumococcal Vaccine: Pediatrics and At-Risk Adult Patients Aged OutNo longer eligible based on patient's age to complete this topic Rotavirus VaccinesAged OutNo longer eligible based on patient's age to complete this topic Insurance MemberSubscriberPlan / Payer (Effective 2024-Present)Name:Karen Walton Mauricio Relation to Subscriber:SelfName:Karen Walton Mauricio Payer ID:[id number] (NAIC) Type:Not on file Address: [address] Care Teams Team MemberRelationshipSpecialtyStart DateEnd Josr Moran PA-C [address] [facility], [place] [address] PCP - GeneralFamily Medicine11/24/23
--- OUTSIDE RECORDS SUMMARY | 2025-05-26 21:25 | XMS_ITS | Clinical Summary ---
Author Organization [facility] Address [address] [facility] [place] [address] Care Team Providers Care Resident Buyer Name Role Phone Josr Martinez MD Primary Care Provider [phone] Allergies No known active allergies Medications MedicationSigDispense QuantityRefillsLast FilledStart DateEnd DateStatus magnesium oxide (Mag-Ox) 400 MG tablet Indications:Leg cramps in ([facility])Take 1 tablet (400 mg) by mouth Daily 30 tablet 6004/09/32294311/05/2025ctive calcium carbonate (Os-Barry) 1250 (500 Ca) MG chewable tablet Chew 1 tablet DailyActive w/o A Vit-Fe Fum-FA (PRENATA PO) Take by mouth05/05/2025Discontinued Encounters DateTypeDepartmentCare KppwBfsvodcesux22/10/2025 4:00 PM ESTRoutine [facility] [place] [address] Lissa Steward PA Third trimester ([facility]); 36 weeks gestation of ([facility])05/26/2025amboo flowsheet [place] [address] Lissa Steward PA 05/25/20258568Kzjxff26/04/2025 8:50 AM ESTRoutine N[place] [address] Lissa Steward PA Third trimester ([facility]); 35 weeks gestation of ([facility])05/20/2025amboo flowsheet [facility] [address] [place] [address] Lissa Steward PA 05/13/20251155Yojxsp88/20/2025 8:40 AM EDTRoutine [facility] [address] [place] [address] Edy Marcum, 33 weeks gestation of ([facility]); Third trimester ([facility]); Leg cramps in ([facility])05/05/2025amboo flowsheet [facility] [address] [place] [address] Edy Marcum, 04/30/2025Telephone [facility] [address] [place] [address] Edy Marcum, 04/28/20252908Mozcto03/08/2025 3:10 PM EDTRoutine [facility] [address] [place] [address] Cristin Beckett, CELIO Third trimester ([facility]); 30 weeks gestation of ([facility])04/23/2025amboo flowsheet [facility] [address] [place] [address] Cristin Beckett, CELIO 04/16/20252110Yuimjv52/24/2025 3:50 PM EDTRoutine [facility] [address] [place] [address] Edy Marcum, Third trimester ([facility]); 29 weeks gestation of ([facility]); Leg cramps in ([facility])04/09/2025 3:00 PM EDTAncillary Procedure [facility] [address] [place] [address] Size of fetus inconsistent with dates in second trimester ([facility])04/02/2025 Xhaphp7603/14/2025linisync Result Encounter [facility] External Department Unsolicited Lissa Steward PA 03/11/2025 3:00 PM EDTRoutine [facility] Connie [facility] [address] [place] [address] Lissa Steward PA Size of fetus inconsistent with dates in second trimester ([facility]) (Primary Dx); Diabetes mellitus screening; Second trimester ([facility]); 25 weeks gestation of ([facility])03/11/2025amboo flowsheet [facility] [address] [place] [address] Lissa Steward PA 03/04/2025Travelfrom Last 3 Months Family History Medical HistoryRelationNameCommentsHypertensionFatherMarkDiabetesMaternal GrandfatherDavidMigrainesMotherChristinaDiabetesPaternal GrandfatherArthurHeart failurePaternal GrandfatherArthurHypertensionPaternal GrandfatherArthurRelation NameStatusCommentsFatherMarkAliveMaternal GrandfatherDavidAliveMotherChristina AlivePaternal GrandfatherArthurAlive Social History Tobacco UseTypesPacks/DayYears UsedDateSmoking Tobacco: NeverSmokeless Tobacco: Current Tobacco Cessation:Ready to Q uit: Not Asked; Counseling Given: Not Answered Comments:Vape Alcohol UseStandard Drinks/WeekCommentsNot Currently0 (1 standard drink = 0.6 oz pure alcohol)Estimated Date of RiemovzbGzhtsqgjAdk11/07/2025Based on UltrasoundSex and Gender InformationValueDate RecordedSex Assigned at BirthNot on fileLegal RxgDmiioh95/07/2024 2:18 PM EDTGender IdentityNot on fileSexual OrientationNot on file Last Filed Vital Signs Vital SignReadingTime TakenCommentsBlood Yfdobxmu787/6211 4:19 PM EST Pulse--Temperature--Respiratory Rate--Oxygen Saturation--Inhaled Oxygen Concentration--Efwayy70.1 kg (183 lb 1.9 oz)05/26/2025 4:19 PM WXYTsjpbt798.9 cm (5' 1 )11/08/2024 10:59 AM EDTBody Mass Index34.6011/08/2024 10:59 AM EDT Plan of Treatment DateTypeDepartmentCare Team (Latest Contact Info)Uvhbvayynaa98/19/2025 3:20 PM ESTRoutine [facility] OBBRYANTN [address] [place] [address] Lissa Steward PA [address] [facility] [place] [address] 06/17/2025 10:00 AM ESTOffice Visit NOMLatisha MACKEY [address] [place] [address] [place] [phone] Edy Marcum DO [address] [facility] [address] [place], [place] [phone] Procedures Procedure NamePriorityDate/TimeAssociated DiagnosisCommentsPOCT URINALYSIS VCEGBSFVMratiej87/10/2025 4:19 PM EST 36 weeks gestation of ([facility]) POCT URINALYSIS INPOYPMYPfgfkiy47/04/2025 9:05 AM EST 35 weeks gestation of ([facility]) POCT URINALYSIS FNZJQDRKIncfzyh99/20/2025 8:46 AM EDT 33 weeks gestation of ([facility]) Third trimester ([facility]) POCT URINALYSIS FHIRQANMVewnmru15/08/2025 3:24 PM EDT Third trimester ([facility]) POCT URINALYSIS PPGBIAVOIyjwpri59/24/2025 3:39 PM EDT Third trimester ([facility]) OB FOLLOW UP TRANSABDOMINAL ESYFRUSRXxihprd01/24/2025 3:15 PM EDT Size of fetus inconsistent with dates in second trimester ([facility]) GLUCOSE 1 AJZKUwlzqnh84/29/2025 9:13 AM EDT ALL CBC WITH AUTO KEGKKpgztqi43/29/2025 9:13 AM EDT POCT URINALYSIS NTPSESJGXjdztfb08/26/2025 3:19 PM EDT Second trimester ([facility]) from Last 3 Months Results * (ABNORMAL) POCT urinalysis dipstick manually resulted (05/26/2025 4:19 PM EST) Only the most recent of6 resultswithin the time period is included. ComponentValueRef RangeTest MethodAnalysis TimePerformed AtPathologist Signature Color, UAYellowClarity, UAClearGlucose, UANegativeNegative - 2000(110) ++++ mg/dLBilirubin, UANegativeNegative - 4(70) +++ mg/dLKetones, UAPositiveNegative - 160(16) ++++ mg/dLSpec Grav, UA1.0051 - 1.03Blood, UANegativeNegative - 50 Richard/mcLpH, UA7.05 - 9Protein, UANegativeNegative - 2000(20) ++++ mg/dL Urobilinogen, UA1.00.2 - 12 mg/dLLeukocytes, UANegativeNegative - 500+++ Garry/mcL Nitrite, UANegativeNegative - PositiveSpecimen (Source)Anatomical Location / LateralityCollection Method / VolumeCollection TimeReceived LwcwCdkmm84/10/2025 4:19 PM EST Narrative Authorizing ProviderResult TypeResult StatusEncompass Rehabilitation [facility] OF CARE TEST ENTER/EDIT ORDERABLESFinal Result * US OB follow up transabdominal approach (04/09/2025 3:15 PM EDT)Anatomical RegionLateralityModalityBodyUltrasoundSpecimen (Source)Anatomical Location / LateralityCollection Method / VolumeCollection TimeReceived Time04/10/2025 1:15 PM EDT Impressions 04/10/2025 1:52 PM EDT Single, live intrauterine , current sonographic age of 29 weeks and 5 days, with an estimated date of delivery of June 20, 2025. * ??Estimated Weight (g) by Percentile is based upon an accurate estimated age based onlast menstrual period. ?? TRANSCRIBED BY: ? ELECTRONICALLY SIGNED BY: Adonay Peraza MD Narrative 04/10/2025 1:52 PM EDT ??FINDINGS: A single, live intrauterine is present with normal cardiac rate of 144 ??beats per minute. Normal activity and amniotic fluid volume. Amniotic fluid index is 13 ??cm. ??Morphology is grossly normal. The cervix is long and closed. ??The current sonographic age is 29 ??weeks and5 days, based on the following measurements: BPD ? 7.5 cm ( 30 weeks, 1 days) Head Circumference ?27.0cm ( 29 weeks, 3 days) Abdominal Circumference ?25.3cm ( 29weeks, 4 days) Femur Length ?5.6cm (29 weeks, 4 days) Presentation ? Cephalic ? Weight (g) by Percentile ??41.4 % * These measurements result in an estimated date of delivery of June 20, 2025. ?The current estimated weight is 1415 ?? grams ( ??3 pound, ??2 ounces). ?? Comparison made with prior examination of January 31, 2025 date of delivery at that time was June 23, 2025. Procedure Note Adonay Peraza MD - 04/10/2025 FINDINGS: A single, live intrauterine is present with normal cardiacrate of 144 beats per minute. Normal activity and amniotic fluidvolume. Amniotic fluid index is 13 cm. Morphology is grossly normal. Thecervix is long and closed. The current sonographic age is 29 weeks and 5days, based on the following measurements: BPD 7.5 cm ( 30 weeks, 1 days) Head Circumference 27.0cm ( 29 weeks, 3 days) Abdominal Circumference 25.3cm ( 29weeks, 4 days) Femur Length 5.6cm (29 weeks, 4 days) Presentation Cephalic Weight (g) by Percentile 41.4 % * These measurements result in an estimated date of delivery of June. The current estimated weight is 1415 grams ( 3 pound, 2ounces). Comparison made with prior examination of January 31, 2025 date of deliveryat that time was June 23, 2025. IMPRESSION: Single, live intrauterine , current sonographic age of 29 weeksand 5 days, with an estimated date of delivery of June 20, 2025. * Estimated Weight (g) by Percentile is based upon an accurateestimated age based on last menstrual period. TRANSCRIBED BY: ELECTRONICALLY SIGNED BY: Adonay Peraza MD Authorizing ProviderResult TypeResult StatusAmy Bin QUEZADA OB US PROCEDURES Final Result * GLUCOSE 1 HOUR (03/14/2025 9:13 AM EDT)ComponentValueRef RangeTest Method Analysis TimePerformed AtPathologist SignatureGLUCOSE 1 HNXI283<130 mg/dLTBH Specimen (Source)Anatomical Location / LateralityCollection Method / Volume Collection TimeReceived Time03/14/2025 9:13 AM EDT03/14/2025 9:20 AM EDT Narrative [facility] - 03/14/2025 11:40 AM EDT Authorizing ProviderResult TypeResult StatusAmy Bin ONEILL BLOOD ORDERABLES Final ResultPerforming OrganizationAddressCity/State/ZIP CodePhone Number [facility] * (ABNORMAL) ALL CBC WITH AUTO DIFF (03/14/2025 9:13 AM EDT)ComponentValueRef RangeTest MethodAnalysis TimePerformed AtPathologist SignatureTBH WBC11.1(H) 4.0 - 11.0 10 3/uLTBHTBH RBC3.79(L)4.20 - 5.40 10 6/uLTBHTBH HGB11.8(L)12.0 - 16.0 g/dLTBHTBH HCT35.3(L)36.0 - 48.0 %TBHTBH MCV93.181.0 - 99.0 fLTBHTBH MCH 31.126.7 - 34.0 pgTBHTBH MCHC33.429.9 - 35.2 g/dLTBHTBH RDW12.811.0 - 15.0 % TBHTBH KOM809843 - 450 10 3/uLTBHTBH MPV10.19.5 - 13.5 fLTBHNEUTROPHILS PERCENT AUTO75.6(H)43.0 - 75.0 %TBHLYMPHOCYTES PERCENT AUTO16.4(L)20.5 - 60.0 %TBHMONOCYTES PERCENT AUTO4.91.7 - 12.0 %TBHTBH EO %1.60.9 - 7.0 %TBHBASOPHILS PERCENT AUTO0.60.2 - 2.0 %TBHIMMATURE GRANULOCYTES PCT AUTO0.9(H)0.0 - 0.5 % TBHNEUTROPHILS ABSOLUTE AUTO8.4(H)1.4 - 6.5 10 3/uLTBHLYMPHOCYTES ABSOLUTE AUTO1.81.2 - 3.8 10 3/uLTBHMONOCYTES ABSOLUTE AUTO0.50.3 - 0.8 10 3/uLTBHTBH EO #0.20.0 - 0.7 10 3/uLTBHBASOPHILS ABSOLUTE AUTO0.10.0 - 0.1 10 3/uLTBH IMMATURE GRANULOCYTES ABS AUTO0.10(H)0.00 - 0.03 10 3/uLTBHSpecimen (Source) Anatomical Location / LateralityCollection Method / VolumeCollection Time Received Time03/14/2025 9:13 AM EDT03/14/2025 9:20 AM EDT Narrative [facility] - 03/14/2025 9:36 AM EDT Authorizing ProviderResult TypeResult StatusAmy [place] PACLINISYNCFinal Result Performing OrganizationAddressCity/State/ZIP CodePhone Number [facility] from Last 3 Months Insurance Care Teams Team MemberRelationshipSpecialtyStart DateEnd Date Josr Martinez MD [address] [facility], [place] [address] PCP - GeneralFamily Medicine11/08/24
--- OUTSIDE RECORDS SUMMARY | 2025-05-26 21:25 | XMS_ITS | Encounter Summary ---
Author Organization [facility] Address [address] [facility] [place] [address] Care Team Providers Care Painting Technician Name Role Phone Josr Martinez MD Primary Care Provider [phone] Encounter Details DateTypeDepartmentCare Team (Latest Contact Info)Qittmttcnbk61/28/2025Travel Social History Tobacco UseTypesPacks/DayYears UsedDateSmoking Tobacco: Never Assessed Estimated Date of UphzxjtlDmowcgjtGmc00/07/2025Based on UltrasoundSex and Gender InformationValueDate RecordedSex Assigned at BirthNot on fileLegal SexFemale 11/21/2023 2:18 PM EDTGender IdentityNot on fileSexual OrientationNot on file documented as of this encounter Plan of Treatment DateTypeDepartmentCare Team (Latest Contact Info)Ejmvphcanzo16/19/2025 3:20 PM ESTRoutine [facility] [address] [facility] [place] [address] Lissa Steward PA [address] [facility] [address] [place], [facility]11 06/17/2025 10:00 AM ESTOffice Visit [facility] Connie MACKEY [address] [facility] [place] [address] Edy Marcum DO [address] [facility] [address] [place], [facility]11 documented as of this encounter Visit Diagnoses Not on filedocumented in this encounter Care Teams Team MemberRelationshipSpecialtyStart DateEnd Date Josr Martinez MD [address] [facility], [address] [place] [address] PCP - GeneralFamily Medicine11/08/24documented as of this encounter
--- OUTSIDE RECORDS SUMMARY | 2025-05-26 21:25 | XMS_ITS | Encounter Summary ---
Author Organization [facility] Address [address] [facility] [place] [address] Care Team Providers Care Pollution Control Technician Name Role Phone Josr Martinez MD Primary Care Provider [phone] Encounter Details DateTypeDepartmentCare Team (Latest Contact Info)Wjbqfqqrpfk39/04/2025amboo flowsheet NOMLatisha MACKEY [address] [place] [address] [place] [address] Lissa Steward PA [address] [place] [address] [address] [place], [place] [address] Social History Tobacco UseTypesPacks/DayYears UsedDateSmoking Tobacco: Never Assessed Estimated Date of HfcvaxygTfagvahfCcv90/07/2025Based on UltrasoundSex and Gender InformationValueDate RecordedSex Assigned at BirthNot on fileLegal SexFemale 11/21/2023 2:18 PM EDTGender IdentityNot on fileSexual OrientationNot on file documented as of this encounter Plan of Treatment DateTypeDepartmentCare Team (Latest Contact Info)Tfhznqbdlbr17/19/2025 3:20 PM ESTRoutine NOMLatisha MACKEY [address] [place] [address] [place] [address] Lissa Steward PA [address] [place] [address] [address] [place], [facility]11 06/17/2025 10:00 AM ESTOffice Visit NOMLatisha MACKEY [address] [place] [address] [place] [address] Edy Marcum, DO [address] [facility] [place] [address] documented as of this encounter Visit Diagnoses Not on filedocumented in this encounter Care Teams Team MemberRelationshipSpecialtyStart DateEnd Date Josr Martinez MD [address] [facility], [address] [place] [address] PCP - GeneralFamily Medicine11/08/24documented as of this encounter
== END 2025-05-26 21:19 | disposition home or self-care (01) ==
LOC: LAB 21:18
PROVIDERS: PCP Physician Assistant; Visit Provider Physician Assistant
DX: Z34.93 Encounter for supervision of normal pregnancy, unspecified, third trimester (principal); Z3A.36 36 weeks gestation of pregnancy
CPT/HCPCS: 87081

== ENCOUNTER 2025-06-04 16:06 | Observation (INO) | payer BC, SELFPAY ==
--- NOTE | 2025-06-04 16:30 | US_ITS ---
[place] [id number] Patient Name: CHRIST MEEHAN MRN: [id number] date: 2000 Sex: F Assigned Patient Location: [facility] Current Patient Location: [facility] Accession/Order Number: [id number] Exam Date: 06/04/2025 17:30 Report Date: 06/04/2025 23:42 At the request of: ISHAAN PARK DO Procedure: US OB BPP w non-stress Ultrasound biophysical profile HISTORY: Increased blood pressure Adequate breathing movement, gross body movement, tone and amniotic fluid volume for total score of 8 out of 8. The amniotic fluid index is 13.6cm within normal limits. The heart rate 145 bpm. US/US OB BPP w non-stress IMPRESSION: Adequate ultrasound biophysical profile Impression dictated by: Giovanny Bejarano M.D. 06/04/2025 11:42 PM Dictation Location: [place] [address] Electronically authenticated by: [id number] Y Date: 06/04/2025 23:42
[2025-06-04 16:54] VITALS: BP 114/70; PULSE 62
[2025-06-04 17:10] LABS: Total Protein Urine Random <6.0 mg/dL (<=11.9)
[2025-06-04 17:14] LABS: Alanine Aminotransferase 19 U/L (14-59); Aspartate Amino Transferase 20 U/L (15-37); Blood Urea Nitrogen 4.0 mg/dL (7.0-18.0); Estimated GFR (African America >60 (>=60 mL/min/1.73m^2); Estimated GFR (Non-African Ame >60 (>=60 mL/min/1.73m^2); Partial Thromboplastin Time 23.8 sec (22.3-36.2); Prothrombin Time 9.7 sec (9.0-11.6); Uric Acid 4.1 mg/dL (2.6-6.0)
[2025-06-04 17:15] LABS: Hematocrit 32.8 % (36.0-48.0); Hemoglobin 10.8 g/dL (12.0-16.0); Immature Granulocytes Abs Auto 0.06 10^3/uL (0.00-0.03); Immature Granulocytes Pct Auto 0.5 % (0.0-0.5); Lymphocytes Absolute Auto 2.0 10^3/uL (1.2-3.8); Mean Corpuscular HGB Conc 32.9 g/dL (29.9-35.2); Mean Corpuscular Hemoglobin 28.6 pg (26.7-34.0); Mean Corpuscular Volume 86.8 fL (81.0-99.0); Platelet Count 285 10^3/uL (150-450); Red Blood Count 3.78 10^6/uL (4.20-5.40); White Blood Count 11.2 10^3/uL (4.0-11.0)
[2025-06-04 17:16] LABS: INR <0.93
[2025-06-04 17:19] VITALS: BP 112/73; PULSE 83
== END 2025-06-04 18:23 | disposition home or self-care (01) ==
PROVIDERS: Admitting Provider Obstetrics & Gynecology; PCP Physician Assistant; Visit Provider Obstetrics & Gynecology
DX: O16.3 Unspecified maternal hypertension, third trimester (principal); Z3A.37 37 weeks gestation of pregnancy
CPT/HCPCS: 36415; 76818; 82565; 82570; 83615; 84156; 84450; 84460; 84520; 84550; 85025; 85610; 85730; G0378; G0379

== ENCOUNTER 2025-06-07 09:56 | Outpatient (OUT) | payer BC, SELFPAY ==
--- OUTSIDE RECORDS SUMMARY | 2025-05-26 16:00 | XMS_ITS | Encounter Summary ---
Author Organization [facility] Address [address] [place] [address] Care Team Providers Care Freezing Room Worker Name Role Phone Josr Martinez MD Primary Care Provider [phone] Reason for Visit * ReasonCommentsRoutine Visit Encounter Details DateTypeDepartmentCare Team (Latest Contact Info)Dqzidbcvvek09/10/2025 4:00 PM ESTRoutine [facility] Connie OBGYJessica [address] [place] [phone] Lissa Steward PA [address] [place], [facility]11 Third trimester ([facility]); 36 weeks gestation of ([facility]) Social History Tobacco UseTypesPacks/DayYears UsedDateSmoking Tobacco: NeverSmokeless Tobacco: Current Tobacco Cessation:Ready to Q uit: Not Asked; Counseling Given: Not Answered Comments:Vape Alcohol UseStandard Drinks/WeekCommentsNot Currently0 (1 standard drink = 0.6 oz pure alcohol)Estimated Date of RvfooethExmnlltaJnl99/07/2025Based on UltrasoundSex and Gender InformationValueDate RecordedSex Assigned at BirthNot on fileLegal OmbXuhqvz20/07/2024 2:18 PM EDTGender IdentityNot on fileSexual OrientationNot on filedocumented as of this encounter Last Filed Vital Signs Vital SignReadingTime TakenCommentsBlood Uspbkwbx386/6205/26/2025 4:19 PM EST Pulse--Temperature--Respiratory Rate--Oxygen Saturation--Inhaled Oxygen Concentration--Xiggsn96.1 kg (183 lb 1.9 oz)05/26/2025 4:19 PM ESTHeight--Body Mass Index34.604 10:59 AM EDTdocumented in this encounter Progress Notes * CATARINA Ragsdale - 05/26/2025 4:00 PM EST Reason for Appointment: Patient ID: Karen [...] file. Social History Tobacco Use Smoking status: Never Smokeless tobacco: Current Tobacco comments: Vape Substance Use Topics Alcohol use: Not Currently Drug use: Never FAMILY HISTORY Family History Problem Relation Name Age of Onset Migraines Mother Nella Hypertension Father Juan Diabetes Maternal Grandfather Rocky Diabetes Paternal Grandfather Cornelio Heart failure Paternal Grandfather Cornelio Hypertension Paternal Grandfather Cornelio SURGICAL HISTORY Past Surgical History: Procedure Laterality [...] reviewed. Vitals: Estimated body mass index is 34.6 kg/m?? as calculated from the following: Height as of 11/08/24: 5' 1 . Weight as of this encounter: 183 lb 1.9 oz. BP: 102/62 Patient's last menstrual period was 09/06/2024. Assessment/Plan ICD-10-CM 1. Third trimester ([facility]) Z34.93 CULTURE, GROUP B STREP WITH SUSCEPTIBLITY CULTURE, GROUP B STREP WITH SUSCEPTIBLITY 2. 36 weeks gestation of ([facility]) Z3A.36 POCT urinalysis dipstick manually resulted Return OB: Patient presents today for a routine obstetrics appointment. Patient is currently 36w2d . Patient states she is doing well but has complaints of being tired due to current . Patient has verbalizes frequent movement. labor precautions was discussed/given and patient was instructed to perform kick counts three times a day. Orders Placed This Encounter Procedures CULTURE, GROUP B STREP WITH SUSCEPTIBLITY POCT urinalysis dipstick manually resulted Follow Up: Patient is to return to office in 1 week for routine OB appointment. Documented by CATARINA Ragsdale on behalf of: CATARINA Ragsdale documented in this encounter Plan of Treatment DateTypeDepartmentCare Team (Latest Contact Info)Aiokecvxexx95/24/2025 11:10 AM ESTRoutine NOMLatisha MACKEY [address] [place] [address] Edy Marcum, [address] [place], [place] [id number] 06/17/2025 10:00 AM ESTOffice Visit NOMLatisha MACKEY [address] [place] [address] Edy Marcum, [address] [place], [place] [id number] NameTypePriorityAssociated DiagnosesOrder ScheduleCULTURE, GROUP B STREP WITH SUSCEPTIBLITYLabRoutine Third trimester ([facility]) Expected: 05/26/2025, Expires: 05/26/2026documented as of this encounter Procedures Procedure NamePriorityDate/TimeAssociated DiagnosisCommentsPOCT URINALYSIS EWIIRYXZVjvlcad97/10/2025 4:19 PM EST 36 weeks gestation of ([facility]) documented in this encounter Results * (ABNORMAL) POCT urinalysis dipstick manually resulted (05/26/2025 4:19 PM EST) ComponentValueRef RangeTest MethodAnalysis TimePerformed AtPathologist SignatureColor, UAYellowClarity, UAClearGlucose, UANegativeNegative - 2000(110) ++++ mg/dLBilirubin, UANegativeNegative - 4(70) +++ mg/dLKetones, UA PositiveNegative - 160(16) ++++ mg/dLSpec Grav, UA1.0051 - 1.03Blood, UA NegativeNegative - 50 Richard/mcLpH, UA7.05 - 9Protein, UANegativeNegative - 2000(20) ++++ mg/dLUrobilinogen, UA1.00.2 - 12 mg/dLLeukocytes, UANegative Negative - 500+++ Garry/mcLNitrite, UANegativeNegative - PositiveSpecimen (Source)Anatomical Location / LateralityCollection Method / VolumeCollection TimeReceived QnpkZnpwm27/10/2025 4:19 PM EST Narrative Authorizing ProviderResult TypeResult StatusPoplar Springs Hospital TEST ENTER/EDIT ORDERABLESFinal Result documented in this encounter Visit Diagnoses Diagnosis Third trimester ([facility]) state, incidental 36 weeks gestation of ([facility]) documented in this encounter Care Teams Team MemberRelationshipSpecialtyStart DateEnd Date Josr Martinez MD [address] [facility], [address] [place] [address] PCP - GeneralFamily Medicine11/08/24documented as of this encounter
--- OUTSIDE RECORDS SUMMARY | 2025-06-04 15:20 | XMS_ITS | Encounter Summary ---
Author Organization [facility] Address [address] [facility] [place] [address] Care Team Providers Care Rolled Ham Lacer Name Role Phone Josr Martinez MD Primary Care Provider [phone] Reason for Visit * ReasonCommentsRoutine Visit Encounter Details DateTypeDepartmentCare Team (Latest Contact Info)Cslqvpshylc40/19/2025 3:20 PM ESTRoutine [facility] Connie OBGYJessica [address] [facility] [place] [phone] Lissa Steward PA [address] [facility] [address] [place], [facility]11 37 weeks gestation of ([facility]); Third trimester ([facility]); induced hypertension, antepartum ([facility]) Social History Tobacco UseTypesPacks/DayYears UsedDateSmoking Tobacco: NeverSmokeless Tobacco: Current Comments:Vape Alcohol UseStandard Drinks/WeekCommentsNot Currently0 (1 standard drink = 0.6 oz pure alcohol)Estimated Date of FzvycmmhOfjytinrCuk79/07/2025Based on UltrasoundSex and Gender InformationValueDate RecordedSex Assigned at BirthNot on fileLegal GpqRtaxug27/07/2024 2:18 PM EDTGender IdentityNot on fileSexual OrientationNot on filedocumented as of this encounter Last Filed Vital Signs Vital SignReadingTime TakenCommentsBlood Orlrvtfd916/9211/ 3:42 PM EST 138/90Pulse--Temperature--Respiratory Rate--Oxygen Saturation--Inhaled Oxygen Concentration--Zpsnsx44 kg (183 lb)06/04/2025 3:42 PM ESTHeight--Body Mass Index 34.5804/ 10:59 AM EDTdocumented in this encounter Progress Notes * CATARINA Ragsdale - 06/04/2025 3:20 PM EST Reason for Appointment: Patient ID: [...] history. Social History Tobacco Use Smoking status: Never [...] nursing note reviewed. Exam conducted with a hat liner present. Vitals: Estimated body mass index is 34.6 kg/m?? as calculated from the following: Height as of 11/08/24: 5' 1 . Weight as of 05/26/25: 183 lb 1.9 oz. BP: Patient's last menstrual period was 09/06/2024. Assessment/Plan ICD-10-CM 1. 37 weeks gestation of ([facility]) Z3A.37 POCT urinalysis dipstick manually resulted US biophysical profile w non stress test Protein / creatinine ratio, urine Protein / creatinine ratio, urine 2. Third trimester ([facility]) Z34.93 POCT urinalysis dipstick manually resulted US biophysical profile w non stress test Protein / creatinine ratio, urine Protein / creatinine ratio, urine 3. induced hypertension, antepartum ([facility]) O13.9 US biophysical profile w non stress test Creatinine Protein, urine, 24 hour Pt and ptt CBC and differential Uric acid Lactate dehydrogenase ALT AST BUN Protein / creatinine ratio, urine Creatinine Protein, urine, 24 hour Pt and ptt CBC and differential Uric acid Lactate dehydrogenase ALT AST BUN Protein / creatinine ratio, urine Assessment/Plan Return OB: Patient presents today for a routine obstetrics appointment. Patient is currently 37w3d . Patient states she is doing well but has complaints of being tired due to current . Pt has bilateral lower leg edema, headache and elevated BP. Pt being sent to [facility], for monitoring Patient hasverbalizes frequent movement. labor precautions was discussed/given and patient was instructed to perform kick counts three times a day. Patient has increased ankle swelling, faint headache and some back pain. Patient will have labs and NST/BPP ordered. Orders Placed This Encounter Procedures US biophysical profile w non stress test Creatinine Protein, urine, 24 hour Pt and ptt CBC and differential Uric acid Lactate dehydrogenase ALT AST BUN Protein / creatinine ratio, urine POCT urinalysis dipstick manually resulted Follow Up: Patient is to return to office in 1 week for routine OB appointment. Documented by Roxane Zaidi LPN/ Brigitte Gr LPN on behalf of: CATARINA Ragsdale documented in this encounter Plan of Treatment DateTypeDepartmentCare Team (Latest Contact Info)Gxqqzijyohs89/24/2025 11:10 AM ESTRoutine LAISHA MACKEY [address] [place] [address] [place] [phone] Edy Marcum, DO [address] [facility] [place] [address] 06/17/2025 10:00 AM ESTOffice Visit LAISHA MACKEY [address] [place] [address] [place] [phone] Edy Marcum, DO [address] [facility] [address] [place], [place] [phone] NameTypePriorityAssociated DiagnosesOrder ScheduleUS biophysical profile w non stress testImagingRoutine 37 weeks gestation of ([facility]) Third trimester ([facility]) induced hypertension, antepartum ([facility]) Expected: 06/04/2025 (Approximate), Expires: 12/02/2025reatinineLabRoutine induced hypertension, antepartum ([facility]) Expected: 06/04/2025 (Approximate), Expires: 06/04/2026Protein, urine, 24 hour LabRoutine induced hypertension, antepartum ([facility]) Expected: 06/04/2025 (Approximate), Expires: 06/04/2026Pt and pttLabRoutine induced hypertension, antepartum ([facility]) Expected: 06/04/2025, Expires: 06/04/2026BC and differentialLabRoutine induced hypertension, antepartum ([facility]) Expected: 06/04/2025 (Approximate), Expires: 06/04/2026Uric acidLabRoutine induced hypertension, antepartum ([facility]) Expected: 06/04/2025 (Approximate), Expires: 06/04/2026Lactate dehydrogenaseLab Routine induced hypertension, antepartum ([facility]) Expected: 06/04/2025, Expires: 06/04/2026LTLabRoutine induced hypertension, antepartum ([facility]) Expected: 06/04/2025 (Approximate), Expires: 06/04/2026STLabRoutine induced hypertension, antepartum ([facility]) Expected: 06/04/2025 (Approximate), Expires: 06/04/2026UNLabRoutine induced hypertension, antepartum ([facility]) Expected: 06/04/2025, Expires: 06/04/2026Protein / creatinine ratio, urineLab Routine 37 weeks gestation of ([facility]) Third trimester ([facility]) induced hypertension, antepartum ([facility]) Expected: 06/04/2025 (Approximate), Expires: 06/04/2026documented as of this encounter Procedures Procedure NamePriorityDate/TimeAssociated DiagnosisCommentsPOCT URINALYSIS NFWPCQQMHlxrtsu59/19/2025 3:33 PM EST 37 weeks gestation of ([facility]) Third trimester ([facility]) documented in this encounter Results * (ABNORMAL) POCT urinalysis dipstick manually resulted (06/04/2025 3:33 PM EST) ComponentValueRef RangeTest MethodAnalysis TimePerformed AtPathologist SignatureColor, UAYellowClarity, UAClearGlucose, UANegativeNegative - 2000(110) ++++ mg/dLBilirubin, UANegativeNegative - 4(70) +++ mg/dLKetones, UA NegativeNegative - 160(16) ++++ mg/dLSpec Grav, UA1.0101 - 1.03Blood, UA NegativeNegative - 50 Richard/mcLpH, UA6.05 - 9Protein, UANegativeNegative - 2000(20) ++++ mg/dLUrobilinogen, UA1.00.2 - 12 mg/dLLeukocytes, UA2+Negative - 500+++ Garry/mcLNitrite, UANegativeNegative - PositiveSpecimen (Source) Anatomical Location / LateralityCollection Method / VolumeCollection Time Received MkyjXzjyc70/19/2025 3:33 PM EST Narrative Authorizing ProviderResult TypeResult StatusInova Women's Hospital TEST ENTER/EDIT ORDERABLESFinal Result documented in this encounter Visit Diagnoses Diagnosis 37 weeks gestation of ([facility]) Third trimester ([facility]) state, incidental induced hypertension, antepartum ([facility]) Transient hypertension of , antepartum documented in this encounter Care Teams Team MemberRelationshipSpecialtyStart DateEnd Date Josr Martinez MD [address] [facility] [address] [facility], [facility] [address] [place] [address] PCP - GeneralFamily Medicine11/08/24documented as of this encounter
--- OUTSIDE RECORDS SUMMARY | 2025-06-07 10:00 | XMS_ITS | Encounter Summary ---
Author Organization [facility] Address [address] [facility] [place] [place] [address] Care Team Providers Care Multi Craft Maintenance Technician Name Role Phone Josr Martinez MD Primary Care Provider [phone] Encounter Details DateTypeDepartmentCare Team (Latest Contact Info)Ejdbcnhknop67/15/2025linisync Result Encounter [facility] External Department Unsolicited Edy Marcum, DO [address] [place], [facility]11 Social History Tobacco UseTypesPacks/DayYears UsedDateSmoking Tobacco: Never Assessed Estimated Date of NtteoogmJdfctxpzCfo81/07/2025Based on UltrasoundSex and Gender InformationValueDate RecordedSex Assigned at BirthNot on fileLegal SexFemale 11/21/2023 2:18 PM EDTGender IdentityNot on fileSexual OrientationNot on file documented as of this encounter Plan of Treatment DateTypeDepartmentCare Team (Latest Contact Info)Ldsqvinudtr43/24/2025 11:10 AM ESTRoutine NOMLatisha MACKEY [address] [place] [address] [place] [address] Edy Marcum DO [address] [place], [facility]11 06/17/2025 10:00 AM ESTOffice Visit NOMLatisha MACKEY [address] [facility] [place] [address] Edy Marcum DO [address] [place] [place] [address] documented as of this encounter Procedures Procedure NamePriorityDate/TimeAssociated DiagnosisCommentsTBH CREATININERoutine 04/30/2025 11:12 AM EDT SRMCOH PROTHROMBIN TIME INR W/O XUYMAeudfuc91/15/2025 11:12 AM EDT MHPT QAFGHHHCGIOzaxlrg15/15/2025 11:12 AM EDT CCF ISVKsufdru65/15/2025 11:12 AM EDT [facility] UAUSQrqltpe50/15/2025 11:12 AM EDT [facility] XPRBnjnvsg52/15/2025 11:12 AM EDT ALL URIC GZAZNdfeczk98/15/2025 11:12 AM EDT ALL CBC WITH AUTO JQKGPzeelmz31/15/2025 11:12 AM EDT ALL YSBMtxaxqw37/15/2025 11:12 AM EDT TBH URINE T PROTEIN CREAT VDJRHFxiqlzz07/15/2025 10:40 AM EDT documented in this encounter Results * [facility] ALT (04/30/2025 11:12 AM EDT)ComponentValueRef RangeTest MethodAnalysis TimePerformed AtPathologist SignatureALANINE KPSWTZADBUDEHIYM3241 - 59 U/LTBH Specimen (Source)Anatomical Location / LateralityCollection Method / Volume Collection TimeReceived Time04/30/2025 11:12 AM EDT1 11:20 AM EDT Narrative CLINIS[facility]NC - 04/30/2025 12:12 PM EDT Authorizing ProviderResult TypeResult StatusCorey Jossue DOCLINISYNCFinal Result Performing OrganizationAddressCity/State/ZIP CodePhone Number CLINIS[facility]NC [facility] * [facility] AST (04/30/2025 11:12 AM EDT)ComponentValueRef RangeTest MethodAnalysis TimePerformed AtPathologist SignatureASPARTATE AMINO YGVKYVZEDGX6383 - 37 U/L TBHSpecimen (Source)Anatomical Location / LateralityCollection Method / Volume Collection TimeReceived Time04/30/2025 11:12 AM EDT1 11:20 AM EDT Narrative [facility] - 04/30/2025 12:12 PM EDT Authorizing ProviderResult TypeResult StatusCorey Jossue DOCLINISYNCFinal Result Performing OrganizationAddressCity/State/ZIP CodePhone Number [facility]IN[facility] * ALL URIC ACID (04/30/2025 11:12 AM EDT)ComponentValueRef RangeTest Method Analysis TimePerformed AtPathologist SignatureURIC ACID4.62.6 - 6.0 mg/dLTBH Specimen (Source)Anatomical Location / LateralityCollection Method / Volume Collection TimeReceived Time04/30/2025 11:12 AM EDT1 11:20 AM EDT Narrative [facility] - 04/30/2025 12:12 PM EDT Authorizing ProviderResult TypeResult StatusCorey Jossue DOCLINISYNCFinal Result Performing OrganizationAddressCity/State/ZIP CodePhone Number VERITOISYNC TB * TBH CREATININE (04/30/2025 11:12 AM EDT)ComponentValueRef RangeTest Method Analysis TimePerformed AtPathologist SignatureCREATININE0.820.55 - 1.02 mg/dL TBHTBH EGFR-AF DUTCH>60>=60 mL/min/1.73m 2TBHTBH EGFR-NON AF DUTCH>60 >=60 mL/min/1.73m 2TBHSpecimen (Source)Anatomical Location / Laterality Collection Method / VolumeCollection TimeReceived Time04/30/2025 11:12 AM EDT 04/30/2025 11:20 AM EDT Narrative CL[facility] - 04/30/2025 12:12 PM EDT Authorizing ProviderResult TypeResult StatusCorey Jossue DOCLINISYNCFinal Result Performing OrganizationAddressty/State/ZIP CodePhone Number CLINIS[facility]NC [facility] * (ABNORMAL) ALL BUN (04/30/2025 11:12 AM EDT)ComponentValueRef RangeTest Method Analysis TimePerformed AtPathologist SignatureBLOOD UREA NITROGEN4.0(L)7.0 - 18.0 mg/dLTBHSpecimen (Source)Anatomical Location / LateralityCollection Method / VolumeCollection TimeReceived Time04/30/2025 11:12 AM EDT1 11:20 AM EDT Narrative CLINIS[facility]NC - 04/30/2025 12:12 PM EDT Authorizing ProviderResult TypeResult StatusCorey Jossue DOCLINISYNCFinal Result Performing OrganizationAddressCity/State/ZIP CodePhone Number CLINISYNC [facility] * (ABNORMAL) ALL CBC WITH AUTO DIFF (04/30/2025 11:12 AM EDT)ComponentValueRef RangeTest MethodAnalysis TimePerformed AtPathologist SignatureTBH WBC12.7(H) 4.0 - 11.0 10 3/uLTBHTBH RBC3.44(L)4.20 - 5.40 10 6/uLTBHTBH HGB10.5(L)12.0 - 16.0 g/dLTBHTBH HCT30.2(L)36.0 - 48.0 %TBHTBH MCV87.881.0 - 99.0 fLTBHTBH MCH 30.526.7 - 34.0 pgTBHTBH MCHC34.829.9 - 35.2 g/dLTBHTBH RDW12.111.0 - 15.0 % TBHTBH [id number] - 450 10 3/uLTBHTBH MPV9.99.5 - 13.5 fLTBHNEUTROPHILS PERCENT AUTO77.7(H)43.0 - 75.0 %TBHLYMPHOCYTES PERCENT AUTO14.4(L)20.5 - 60.0 %TBH MONOCYTES PERCENT AUTO5.61.7 - 12.0 %TBHTBH EO %0.90.9 - 7.0 %TBHBASOPHILS PERCENT AUTO0.50.2 - 2.0 %TBHIMMATURE GRANULOCYTES PCT AUTO0.9(H)0.0 - 0.5 % TBHNEUTROPHILS ABSOLUTE AUTO9.9(H)1.4 - 6.5 10 3/uLTBHLYMPHOCYTES ABSOLUTE AUTO1.81.2 - 3.8 10 3/uLTBHMONOCYTES ABSOLUTE AUTO0.70.3 - 0.8 10 3/uLTBHTBH EO #0.10.0 - 0.7 10 3/uLTBHBASOPHILS ABSOLUTE AUTO0.10.0 - 0.1 10 3/uLTBH IMMATURE GRANULOCYTES ABS AUTO0.11(H)0.00 - 0.03 10 3/uLTBHSpecimen (Source) Anatomical Location / LateralityCollection Method / VolumeCollection Time Received Time04/30/2025 11:12 AM EDT1 11:20 AM EDT Narrative CLINISYMN - 04/30/2025 11:39 AM EDT Authorizing ProviderResult TypeResult StatusCorey Jossue DOCLINISYNCFinal Result Performing OrganizationAddressCity/State/ZIP CodePhone Number [facility] * (ABNORMAL) MHPT FIBRINOGEN (04/30/2025 11:12 AM EDT)ComponentValueRef Range Test MethodAnalysis TimePerformed AtPathologist LtgskrrqvXXPIQYUFCR711(H)200 - 400 mg/dLTBHSpecimen (Source)Anatomical Location / LateralityCollection Method / VolumeCollection TimeReceived Time04/30/2025 11:12 AM EDT1 11:20 AM EDT Narrative [facility] [place] - 04/30/2025 12:12 PM EDT Authorizing ProviderResult TypeResult StatusCorey Jossue DOCLINISYNCFinal Result Performing OrganizationAddressCity/State/ZIP CodePhone Number [facility] * CCF APTT (04/30/2025 11:12 AM EDT)ComponentValueRef RangeTest MethodAnalysis TimePerformed AtPathologist SignaturePARTIAL THROMBOPLASTIN TIME24.322.3 - 36.2 secTBHSpecimen (Source)Anatomical Location / LateralityCollection Method / VolumeCollection TimeReceived Time04/30/2025 11:12 AM EDT1 11:20 AM EDT Narrative CLINISYMN - 04/30/2025 12:12 PM EDT Authorizing ProviderResult TypeResult StatusCorey Jossue DOCLINISYNCFinal Result Performing OrganizationAddressCity/State/ZIP CodePhone Number CLINISYNC TBH * SRMCOH PROTHROMBIN TIME INR W/O COUM (04/30/2025 11:12 AM EDT)ComponentValue Ref RangeTest MethodAnalysis TimePerformed AtPathologist SignaturePROTHROMBIN TIME9.99.0 - 11.6 secTBHTBH INR0.93TBHComment: DESIRED INR: 2.0-3.0 CONDITIONS NOT LISTED BELOW 2.5-3.5 FOR PROSTHETIC HEART VALVE REPLACEMENT 2.5-3.5 RECURRENT THROMBOSIS Specimen (Source)Anatomical Location / LateralityCollection Method / Volume Collection TimeReceived Time04/30/2025 11:12 AM EDT1 11:20 AM EDT Narrative [facility] - 04/30/2025 12:12 PM EDT Authorizing ProviderResult TypeResult StatusCorey Jossue DOCLINISYNCFinal Result Performing OrganizationAddressCity/State/ZIP CodePhone Number [facility]IN[facility]NC [facility] * TBH URINE T PROTEIN CREAT RATIO (04/30/2025 10:40 AM EDT)ComponentValueRef RangeTest MethodAnalysis TimePerformed AtPathologist SignatureTOTAL PROTEIN URINE RANDOM6.7<=11.9 mg/dLTBHCREATININE URINE ASLXFA49.4120.00 - 300.00 mg/dL TBHPROTEIN CREATININE RATIO URINE0.24TBHSpecimen (Source)Anatomical Location / LateralityCollection Method / VolumeCollection TimeReceived Time04/30/2025 10:40 AM EDT1 11:20 AM EDT Narrative CLINISYNC - 04/30/2025 12:12 PM EDT Authorizing ProviderResult TypeResult StatusCorey Jossue DOCLINISYNCFinal Result Performing OrganizationAddressCity/State/ZIP CodePhone Number CLINISYNC [facility]H documented in this encounter Visit Diagnoses Not on filedocumented in this encounter Care Teams Team MemberRelationshipSpecialtyStart DateEnd Josr Moran MD [address] [facility], [facility] [address] [place] [address] PCP - GeneralFamily Medicine11/08/24documented as of this encounter
--- OUTSIDE RECORDS SUMMARY | 2025-06-07 10:00 | XMS_ITS | Encounter Summary ---
Author Organization [facility] Address [address] [facility] [place] [address] Care Team Providers Care Application Packager Name Role Phone Josr Martinez MD Primary Care Provider [phone] Encounter Details DateTypeDepartmentCare Team (Latest Contact Info)Qcmuiolmuuu73/10/2025amboo flowsheet NOMLatisha MACKEY [address] [place] [address] [place] [address] Lissa Steward PA [address] [facility] [address] [place], [place] [address] Social History Tobacco UseTypesPacks/DayYears UsedDateSmoking Tobacco: NeverSmokeless Tobacco: Current Comments:Vape Alcohol UseStandard Drinks/WeekCommentsNot Currently0 (1 standard drink = 0.6 oz pure alcohol)Estimated Date of NwgyevxrSbrdgzcoFlg66/07/2025Based on UltrasoundSex and Gender InformationValueDate RecordedSex Assigned at BirthNot on fileLegal JwgFpwhtp11/07/2024 2:18 PM EDTGender IdentityNot on fileSexual OrientationNot on filedocumented as of this encounter Plan of Treatment DateTypeDepartmentCare Team (Latest Contact Info)Iyxqnqvmins88/24/2025 11:10 AM ESTRoutine NOMLatisha MACKEY [address] [place] [address] [place] [address] Edy Marcum DO [address] [facility] [address] [place], [facility]11 06/17/2025 10:00 AM ESTOffice Visit NOMS Connie [place] [address] [place] [phone] Edy Marcum DO [address] [facility] [place] [address] documented as of this encounter Visit Diagnoses Not on filedocumented in this encounter Care Teams Team MemberRelationshipSpecialtyStart DateEnd Date Josr Martinez MD [address] [facility], [facility] [address] [place] [address] PCP - GeneralFamily Medicine11/08/24documented as of this encounter
--- OUTSIDE RECORDS SUMMARY | 2025-06-07 10:00 | XMS_ITS | Encounter Summary ---
Author Organization [facility] Address [address] [facility] [place] [address] Care Team Providers Care Logistics Engineering Manager Name Role Phone Josr Martinez MD Primary Care Provider [phone] Encounter Details DateTypeDepartmentCare Team (Latest Contact Info)Buflvgxyobj33/19/2025amboo flowsheet [facility] [address] [place] [address] [place] [phone] Lissa Steward PA [address] [facility] [address] [place], [place] [address] Social History Tobacco UseTypesPacks/DayYears UsedDateSmoking Tobacco: NeverSmokeless Tobacco: Current Comments:Vape Alcohol UseStandard Drinks/WeekCommentsNot Currently0 (1 standard drink = 0.6 oz pure alcohol)Estimated Date of CyfiteekSwxfzkbqSxx64/07/2025Based on UltrasoundSex and Gender InformationValueDate RecordedSex Assigned at BirthNot on fileLegal JuzUloldy58/07/2024 2:18 PM EDTGender IdentityNot on fileSexual OrientationNot on filedocumented as of this encounter Plan of Treatment DateTypeDepartmentCare Team (Latest Contact Info)Gcsoonaumto87/24/2025 11:10 AM ESTRoutine [facility] [address] [place] [address] [place] [address] Edy Marcum DO [address] [facility] [address] [place], [facility] 06/17/2025 10:00 AM ESTOffice Visit [facility] [place] [address] [place] [id number] Edy Marucm DO [address] [facility] [place] [address] documented as of this encounter Visit Diagnoses Not on filedocumented in this encounter Care Teams Team MemberRelationshipSpecialtyStart DateEnd Date Josr Martinez MD [address] [facility], [facility] [address] [place] [address] PCP - GeneralFamily Medicine11/08/24documented as of this encounter
--- OUTSIDE RECORDS SUMMARY | 2025-06-07 10:00 | XMS_ITS | Clinical Summary ---
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 Phone Mecca Leone MD Primary Care Provider [phone] Allergies No known active allergies Medications MedicationSigDispense QuantityRefillsLast FilledStart DateEnd DateStatus magnesium oxide (Mag-Ox) 400 MG tablet Indications:Leg cramps in ([facility])Take 1 tablet (400 mg) by mouth Daily 30 tablet 60//041940/ctive calcium carbonate (Os-Barry) 1250 (500 Ca) MG chewable tablet Chew 1 tablet DailyActive Encounters DateTypeDepartmentCare QhpkCblwyrdohmm81/19/2025 3:20 PM ESTRoutine [facility] MACKEY [address] [place] [phone] Lissa Steward PA 37 weeks gestation of ([facility]); Third trimester ([facility]); induced hypertension, antepartum ([facility])06/04/2025linisync Result Encounter NOMS External Department Unsolicited Ishaan Marcum, DO 5Clinisync Result Encounter NOMS External Department Unsolicited Ishaan Marcum, DO 5Bamboo flowsheet NOMLatisha MACKEY [address] [place] [phone] Lissa Steward PA 05/29/20251785Riaprx11/10/2025 4:00 [place] [address] Lissa Steward PA Third trimester ([facility]); 36 weeks gestation of ([facility])05/26/2025linisync Result Encounter NOMS External Department Unsolicited Lissa Steward PA 05/26/2025amboo flowsheet [facility] [address] [place] [address] Lissa Steward PA 05/25/20257341Melwru48/04/2025 8:50 AM ESTRoutine [facility] [address] [place] [address] Lissa Steward PA Third trimester ([facility]); 35 weeks gestation of ([facility])05/20/2025amboo flowsheet [facility] [address] [place] [address] Lissa Steward PA 05/13/20256361Euiynx24/20/2025 8:40 AM EDTRoutine [facility] [address] [place] [phone] Ishaan Marcum, DO 33 weeks gestation of ([facility]); Third trimester ([facility]); Leg cramps in ([facility])05/05/2025amboo flowsheet [facility] [address] [place] [address] Ishaan Marcum, DO 5Clinisync Result Encounter NOMS External Department Unsolicited Ishaan Marcum, DO 04/30/2025Telephone [facility] [address] [place] [phone] Ishaan Marcum, DO 04/28/20255583Ixpxea67/08/2025 3:10 PM EDTRoutine [facility] [address] [place] [phone] Cristin Beckett, CELIO Third trimester ([facility]); 30 weeks gestation of ([facility])5Bamboo flowsheet [facility] [address] [place] [phone] Cristin Beckett, CELIO 04/16/20255653Fvnwmy42/24/2025 3:50 PM EDTRoutine [facility] Connie MACKEY [address] [place] [address] [place] [phone] Ishaan Marcum DO Third trimester ([facility]); 29 weeks gestation of ([facility]); Leg cramps in ([facility])04/09/2025 3:00 PM EDTAncillary Procedure [facility] [address] [place] [address] [place] [phone] Size of fetus inconsistent with dates in second trimester ([facility])04/02/2025 Jzvnqh115Clinisync Result Encounter NOMS External Department Unsolicited Lissa Steward PA 03/11/2025 3:00 PM EDTRoutine [facility] [address] [place] [address] [place] [phone] Lissa Steward, PA Size of fetus inconsistent with dates in second trimester ([facility]) (Primary Dx); Diabetes mellitus screening; Second trimester ([facility]); 25 weeks gestation of ([facility])5Bamboo flowsheet [facility] [address] [place] [phone] Lissa Steward PA from Last 3 Months Family History Medical HistoryRelationNameCommentsHypertensionFatherMarkDiabetesMaternal GrandfatherDavidMigrainesMotherChristinaDiabetesPaternal GrandfatherArthurHeart failurePaternal GrandfatherArthurHypertensionPaternal GrandfatherArthurRelation NameStatusCommentsFatherMarkAliveMaternal GrandfatherDavidAliveMotherChristina AlivePaternal GrandfatherArthurAlive Social History Tobacco UseTypesPacks/DayYears UsedDateSmoking Tobacco: NeverSmokeless Tobacco: Current Tobacco Cessation:Ready to Q uit: Not Asked; Counseling Given: Not Answered Comments:Vape Alcohol UseStandard Drinks/WeekCommentsNot Currently0 (1 standard drink = 0.6 oz pure alcohol)Estimated Date of SlfhpoopJdkvqovrXie86/07/2025Based on UltrasoundSex and Gender InformationValueDate RecordedSex Assigned at BirthNot on fileLegal NtsAaugel91/07/2024 2:18 PM EDTGender IdentityNot on fileSexual OrientationNot on file Last Filed Vital Signs Vital SignReadingTime TakenCommentsBlood Drsmswbd690/9206/04/2025 3:42 PM EST 138/90Pulse--Temperature--Respiratory Rate--Oxygen Saturation--Inhaled Oxygen Concentration--Ujzjlh15 kg (183 lb)06/04/2025 3:42 PM VNRPakwog673.9 cm (5' 1 ) 11/08/2024 10:59 AM EDTBody Mass Index34.58011/08/2024 10:59 AM EDT Plan of Treatment DateTypeDepartmentCare Team (Latest Contact Info)Gzeguuwjtwn85/24/2025 11:10 AM ESTRoutine NOMLatisha MACKEY [address] [place] [address] [place] [address] Ishaan Marcum, [address] [place] [address] 06/17/2025 10:00 AM ESTOffice Visit NOMLatisha MACKEY [address] [place] [address] [place] [address] Ishaan Marcum DO [address] [place] [address] [place] [address] Procedures Procedure NamePriorityDate/TimeAssociated DiagnosisCommentsUS OB BPP W NON-IUKHHP7606/04/2025 11:42 PM EST [facility] DSFZSccyogj60/19/2025 4:53 PM EST SRMCOH PROTHROMBIN TIME INR W/O YVAJCmvvrbv37/19/2025 4:53 PM EST ALL CBC WITH AUTO XILZTvhptbz87/19/2025 4:53 PM EST ALL UKHWlzctlx75/19/2025 4:53 PM EST [facility] UZVArmbcis96/19/2025 4:53 PM EST C[facility] VVQQjjhkgl25/19/2025 4:53 PM EST ALL URIC GOAIObtzwyt63/19/2025 4:53 PM EST TBH XOJPOPDRKZSksebwe58/19/2025 4:53 PM EST ALL ATFOjiuzme99/19/2025 4:53 PM EST [facility] URINE T PROTEIN CREAT TJQZGJkkyrgj16/19/2025 4:35 PM EST POCT URINALYSIS YATEMJSVBhghvoz33/19/2025 3:33 PM EST 37 weeks gestation of ([facility]) Third trimester ([facility]) POCT URINALYSIS VMXHSTIXEgjebgp59/10/2025 4:19 PM EST 36 weeks gestation of ([facility]) STREP GP B WTQGjjwxzm70/10/2025 4:00 PM EST POCT URINALYSIS XATVOROGYobpsqy92/04/2025 9:05 AM EST 35 weeks gestation of ([facility]) POCT URINALYSIS CNHQNEOFUnsisfz22/20/2025 8:46 AM EDT 33 weeks gestation of ([facility]) Third trimester ([facility]) C[facility] JTXIbxehhl15/15/2025 11:12 AM EDT CCF TIOPagwane35/15/2025 11:12 AM EDT ALL URIC UQGNYfzaxqa09/15/2025 11:12 AM EDT TBH GHSTLMQLPKDflzozz88/15/2025 11:12 AM EDT ALL YNIAbuqsaq87/15/2025 11:12 AM EDT ALL CBC WITH AUTO LWVMIqfyaqb64/15/2025 11:12 AM EDT MHPT LWGNIMYHAQEqaaxwj38/15/2025 11:12 AM EDT CCF WUZSYdwafho31/15/2025 11:12 AM EDT SRMCOH PROTHROMBIN TIME INR W/O VLFEOpsijvm16/15/2025 11:12 AM EDT TBH URINE T PROTEIN CREAT BQPVOBsshwig93/15/2025 10:40 AM EDT POCT URINALYSIS KRNFWKWZKxycghh63/08/2025 3:24 PM EDT Third trimester ([facility]) POCT URINALYSIS PSDSUFIANgoibhg88/24/2025 3:39 PM EDT Third trimester ([facility]) US OB FOLLOW UP TRANSABDOMINAL RHZGEUULHbcgsfm30/24/2025 3:15 PM EDT Size of fetus inconsistent with dates in second trimester ([facility]) GLUCOSE 1 LXAPFauyeae60/29/2025 9:13 AM EDT ALL CBC WITH AUTO GTWXNjqzith80/29/2025 9:13 AM EDT POCT URINALYSIS SXRHMNJUEgluxga69/26/2025 3:19 PM EDT Second trimester ([facility]) from Last 3 Months Results * US OB BPP W NON-STRESS (06/04/2025 11:42 PM EST)Anatomical Region LateralityModalityOtherSpecimen (Source)Anatomical Location / Laterality Collection Method / VolumeCollection TimeReceived Time06/04/2025 11:42 PM EST Narrative 06/04/2025 11:44 PM EST [facility] ?[address] ? [place] [address] ? Ultrasound Report ? Signed ? Patient: SHEFALICHRIST L ?MR#: [id number] ?? : 2000 ?Acct:[id number] ?? Age/Sex: 25 / F ?ADM Date: ?? Loc: [facility] ??253-1 ? Attending Dr: Ishaan Marcum D.O. ? Ordering Physician: Ishaan Marcum D.O. ?? Date of Service: 06/04/25 ?? Procedure(s): US OB BPP w non-stress ?? Accession Number(s): [id number] ? cc: Ishaan Marcum D.O.; MECCA LEONE ? [facility] ? [address] ? [place] [address] ? Patient Name: ?? CHRIST MEEHAN ? MRN: [facility]:[id number] ? date: 2000 ?Sex: F ?? Assigned Patient Location: [facility] ?? Current Patient Location: [facility] ?? Accession/Order Number: [id number] ?? Exam Date: 06/04/2025 ??17:30 ?Report Date: 06/04/2025 ??23:42 ? At the request of: ?? ISHAAN ??JOSSUE ??DO ? Procedure: ??US OB BPP w non-stress ? Ultrasound biophysical profile ? HISTORY: Increased blood pressure ? Adequate breathing movement, gross body movement, tone and ?? amniotic fluid volume for total score of 8 out of 8. ??The amniotic fluid index ?? is 13.6cm within normal limits. ??The heart rate 145 bpm. ? US/US OB BPP w non-stress ?? IMPRESSION: Adequate ultrasound biophysical profile ? Impression dictated by: Giovanny Bejarano M.D. ??06/04/2025 11:42 PM ? Dictation Location: RADIO-PC-20 ? Electronically authenticated by: [id number] ??Y ?? Date: 06/04/2025 ??23:42 ? Dictated By: ?Giovanny Bejarano D.O. ? Signed By: ?06/04/252343 ? DD/ 41 ? TD/TT: ? Academic Advising Director: Procedure Note Radiology, Radiologist, - 06/05/2025 [place] [address] Ultrasound Report Signed Patient: CHRIST MEEHAN LMR#: [id number] : 2000Acct:[id number] Age/Sex: Date: Loc: [facility] 253-[address]: Ishaan Marcum D.O. Ordering Physician: Ishaan Marcum D.O. Date of Service: 06/04/25 Procedure(s): US OB BPP w non-stress Accession Number(s): [id number] cc: Ishaan Marcmu D.O.; MECCA LEONE [place] [address] Patient Name: CHRIST MEEHAN MRN: [facility]:[id number] date: 2000 Sex: F Assigned Patient Location: [facility] Current Patient Location: [facility] Accession/Order Number: [id number] Exam Date: 06/04/2025 17:30 Report Date: 06/04/2025 23:42 At the request of: ISHAAN MARCUM DO Procedure: US OB BPP w non-stress Ultrasound biophysical profile HISTORY: Increased blood pressure Adequate breathing movement, gross body movement, tone and amniotic fluid volume for total score of 8 out of 8. The amniotic fluidindex is 13.6cm within normal limits. The heart rate 145 bpm. US/US OB BPP w non-stress IMPRESSION: Adequate ultrasound biophysical profile Impression dictated by: Giovanny Bejarano M.D. 06/04/2025 11:42 PM Dictation Location: [place] [address] Electronically authenticated by: [id number] Y Date: 3:42 Dictated By: Giovanny Bejarano D.O. Signed By:06/04/254 DD/ 41 TD/TT: Academic Advising Director: Authorizing ProviderResult TypeResult StatusCorey Jossuesusana CAOLINISYNC IMAGINGFinal Result * [facility] CREATININE (06/04/2025 4:53 PM EST) Only the most recent of2 resultswithin the time period is included. ComponentValueRef RangeTest MethodAnalysis TimePerformed AtPathologist Signature CREATININE0.690.55 - 1.02 mg/dLTBHTBH EGFR-AF GABONESE>60>=60 mL/min/1.73m 2TBH TBH EGFR-NON AF GABONESE>60>=60 mL/min/1.73m 2TBHSpecimen (Source)Anatomical Location / LateralityCollection Method / VolumeCollection TimeReceived Time 06/04/2025 4:53 PM EST06/04/2025 4:58 PM EST Narrative CLINISYNC - 06/04/2025 5:14 PM EST Authorizing ProviderResult TypeResult StatusCorey Jossue DOCLINISYNCFinal Result Performing OrganizationAddressCity/State/ZIP CodePhone Number [facility] * SRMCOH PROTHROMBIN TIME INR W/O COUM (06/04/2025 4:53 PM EST) Only the most recent of2 resultswithin the time period is included. ComponentValueRef RangeTest MethodAnalysis TimePerformed AtPathologist Signature PROTHROMBIN TIME9.79.0 - 11.6 secTBHTBH INR<0.93TBHComment: DESIRED INR: 2.0-3.0 CONDITIONS NOT LISTED BELOW 2.5-3.5 FOR PROSTHETIC HEART VALVE REPLACEMENT 2.5-3.5 RECURRENT THROMBOSIS Specimen (Source)Anatomical Location / LateralityCollection Method / Volume Collection TimeReceived Time06/04/2025 4:53 PM EST06/04/2025 4:58 PM EST Narrative CLINISYNC - 06/04/2025 5:16 PM EST Authorizing ProviderResult TypeResult StatusCorey Jossue DOCLINISYNCFinal Result Performing OrganizationAddressCity/State/ZIP CodePhone Number [facility] * CCF AST (06/04/2025 4:53 PM EST) Only the most recent of2 resultswithin the time period is included. ComponentValueRef RangeTest MethodAnalysis TimePerformed AtPathologist Signature ASPARTATE AMINO QYVLRMFKDHP2183 - 37 U/LTBHSpecimen (Source)Anatomical Location / LateralityCollection Method / VolumeCollection TimeReceived Time06/04/2025 4:53 PM EST06/04/2025 4:58 PM EST Narrative CLINISYNC - 06/04/2025 5:14 PM EST Authorizing ProviderResult TypeResult StatusCorey Jossue DOCLINISYNCFinal Result Performing OrganizationAddressCity/State/ZIP CodePhone Number CLINISYNC TB * CCF APTT (06/04/2025 4:53 PM EST) Only the most recent of2 resultswithin the time period is included. ComponentValueRef RangeTest MethodAnalysis TimePerformed AtPathologist Signature PARTIAL THROMBOPLASTIN TIME23.822.3 - 36.2 secTBHSpecimen (Source)Anatomical Location / LateralityCollection Method / VolumeCollection TimeReceived Time 06/04/2025 4:53 PM EST06/04/2025 4:58 PM EST Narrative CLINISYNC - 06/04/2025 5:16 PM EST Authorizing ProviderResult TypeResult StatusCorey Jossue DOCLINISYNCFinal Result Performing OrganizationAddressCity/State/ZIP CodePhone Number CLINISYNC TB * CCF ALT (06/04/2025 4:53 PM EST) Only the most recent of2 resultswithin the time period is included. ComponentValueRef RangeTest MethodAnalysis TimePerformed AtPathologist Signature ALANINE JJWKVZJEAEEIXFFJ0831 - 59 U/LTBHSpecimen (Source)Anatomical Location / LateralityCollection Method / VolumeCollection TimeReceived Time06/04/2025 4:53 PM EST06/04/2025 4:58 PM EST Narrative CLINISYNC - 06/04/2025 5:14 PM EST Authorizing ProviderResult TypeResult StatusCorey Jossue DOCLINISYNCFinal Result Performing OrganizationAddressCity/State/ZIP CodePhone Number CLINISYNC TBH * ALL URIC ACID (06/04/2025 4:53 PM EST) Only the most recent of2 resultswithin the time period is included. ComponentValueRef RangeTest MethodAnalysis TimePerformed AtPathologist Signature URIC ACID4.12.6 - 6.0 mg/dLTBHSpecimen (Source)Anatomical Location / Laterality Collection Method / VolumeCollection TimeReceived Time06/04/2025 4:53 PM EST 06/04/2025 4:58 PM EST Narrative CLINISYNC - 06/04/2025 5:14 PM EST Authorizing ProviderResult TypeResult StatusCorey Jossue DOCLINISYNCFinal Result Performing OrganizationAddressCity/State/ZIP CodePhone Number CLINISYNC TB * (ABNORMAL) ALL LDH (06/04/2025 4:53 PM EST)ComponentValueRef RangeTest Method Analysis TimePerformed AtPathologist SignatureLACTATE CONKWORCLMHZT563(H)81 - 234 U/LTBHSpecimen (Source)Anatomical Location / LateralityCollection Method / VolumeCollection TimeReceived Time06/04/2025 4:53 PM EST06/04/2025 4:58 PM EST Narrative CLINISYNC - 06/04/2025 5:14 PM EST Authorizing ProviderResult TypeResult StatusCorey Jossue DOCLINISYNCFinal Result Performing OrganizationAddressCity/State/ZIP CodePhone Number CLINISYNC [facility] * (ABNORMAL) ALL CBC WITH AUTO DIFF (06/04/2025 4:53 PM EST) Only the most recent of3 resultswithin the time period is included. ComponentValueRef RangeTest MethodAnalysis TimePerformed AtPathologist Signature TBH WBC11.2(H)4.0 - 11.0 10 3/uLTBHTBH RBC3.78(L)4.20 - 5.40 10 6/uLTBHTBH HGB 10.8(L)12.0 - 16.0 g/dLTBHTBH HCT32.8(L)36.0 - 48.0 %TBHTBH MCV86.881.0 - 99.0 fLTBHTBH MCH28.626.7 - 34.0 pgTBHTBH MCHC32.929.9 - 35.2 g/dLTBHTBH RDW12.111.0 - 15.0 %TBHTBH FZK806376 - 450 10 3/uLTBHTBH MPV10.79.5 - 13.5 fLTBHNEUTROPHILS PERCENT AUTO74.443.0 - 75.0 %TBHLYMPHOCYTES PERCENT AUTO17.5(L)20.5 - 60.0 %TBH MONOCYTES PERCENT AUTO6.31.7 - 12.0 %TBHTBH EO %0.6(L)0.9 - 7.0 %TBHBASOPHILS PERCENT AUTO0.70.2 - 2.0 %TBHIMMATURE GRANULOCYTES PCT AUTO0.50.0 - 0.5 %TBH NEUTROPHILS ABSOLUTE AUTO8.4(H)1.4 - 6.5 10 3/uLTBHLYMPHOCYTES ABSOLUTE AUTO2.0 1.2 - 3.8 10 3/uLTBHMONOCYTES ABSOLUTE AUTO0.70.3 - 0.8 10 3/uLTBHTBH EO #0.10.0 - 0.7 10 3/uLTBHBASOPHILS ABSOLUTE AUTO0.10.0 - 0.1 10 3/uLTBHIMMATURE GRANULOCYTES ABS AUTO0.06(H)0.00 - 0.03 10 3/uLTBHSpecimen (Source)Anatomical Location / LateralityCollection Method / VolumeCollection TimeReceived Time 06/04/2025 4:53 PM EST06/04/2025 4:58 PM EST Narrative CLINISYNC - 06/04/2025 5:16 PM EST Authorizing ProviderResult TypeResult StatusCorey Jossue DOCLINISYNCFinal Result Performing OrganizationAddressCity/State/ZIP CodePhone Number LEEANNANC [facility] * (ABNORMAL) ALL BUN (06/04/2025 4:53 PM EST) Only the most recent of2 resultswithin the time period is included. ComponentValueRef RangeTest MethodAnalysis TimePerformed AtPathologist Signature BLOOD UREA NITROGEN4.0(L)7.0 - 18.0 mg/dLTBHSpecimen (Source)Anatomical Location / LateralityCollection Method / VolumeCollection TimeReceived Time06/04/2025 4:53 PM EST06/04/2025 4:58 PM EST Narrative CLINISYNC - 06/04/2025 5:14 PM EST Authorizing ProviderResult TypeResult StatusCorey Jossue DOCLINISYNCFinal Result Performing OrganizationAddressCity/State/ZIP CodePhone Number VERITOISYNC TB * TBH URINE T PROTEIN CREAT RATIO (06/04/2025 4:35 PM EST) Only the most recent of2 resultswithin the time period is included. ComponentValueRef RangeTest MethodAnalysis TimePerformed AtPathologist Signature TOTAL PROTEIN URINE RANDOM<6.0<=11.9 mg/dLTBHCREATININE URINE VICSIB97.1420.00 - 300.00 mg/dLTBHSpecimen (Source)Anatomical Location / LateralityCollection Method / VolumeCollection TimeReceived Time06/04/2025 4:35 PM EST06/04/2025 4:58 PM EST Narrative CLINISYNC - 06/04/2025 5:12 PM EST Authorizing ProviderResult TypeResult StatusCorechristi Marcum DOCLINISYNCFinal Result Performing OrganizationAddressCity/State/ZIP CodePhone Number CLINISYNC TB * (ABNORMAL) POCT urinalysis dipstick manually resulted (06/04/2025 3:33 PM EST) Only the most recent of7 resultswithin the time period is included. ComponentValueRef RangeTest MethodAnalysis TimePerformed AtPathologist Signature Color, UAYellowClarity, UAClearGlucose, UANegativeNegative - 2000(110) ++++ mg/dLBilirubin, UANegativeNegative - 4(70) +++ mg/dLKetones, UANegativeNegative - 160(16) ++++ mg/dLSpec Grav, UA1.0101 - 1.03Blood, UANegativeNegative - 50 Richard/mcLpH, UA6.05 - 9Protein, UANegativeNegative - 2000(20) ++++ mg/dL Urobilinogen, UA1.00.2 - 12 mg/dLLeukocytes, UA2+Negative - 500+++ Garry/mcL Nitrite, UANegativeNegative - PositiveSpecimen (Source)Anatomical Location / LateralityCollection Method / VolumeCollection TimeReceived VdgkWjenp76/19/2025 3:33 PM EST Narrative Authorizing ProviderResult TypeResult StatusAmy Bin PAPOINT OF CARE TEST ENTER/EDIT ORDERABLESFinal Result * STREP GP B CHERYL (05/26/2025 4:00 PM EST)ComponentValueRef RangeTest Method Analysis TimePerformed AtPathologist SignatureSTREP GP B CHERYL ??Strep Gp B CHERYL TBHSTREP GP B NAANegativeTBHSTREP GP B NAACenters for Disease Control and Prevention (CDC) andTBHSTREP GP B NAAAmerican Congress of Obstetricians and GynecologistsTBHSTREP GP B CHERYL(ACOG) guidelines for prevention of group BTBHSTREP GP B NAAstreptococcal (GBS) disease specify co-collection ofTBH STREP GP B NAAa vaginal and rectal swab specimen to maximizeTBHSTREP GP B CHERYL sensitivity of GBS detection. Per the CDC and ACOG,TBHSTREP GP B NAAswabbing both the lower vagina and rectumTBHSTREP GP B NAAsubstantially increases the yield of detectionTBHSTREP GP B NAAcompared with sampling the vagina alone.TBH STREP GP B NAAPenicillin G, ampicillin, or cefazolin are indicatedTBHSTREP GP B NAAfor intrapartum prophylaxis of GBSTBHSTREP GP B NAAcolonization. Reflex susceptibility testing should beTBHSTREP GP B NAAperformed prior to use of clindamycin only on GBSTBHSTREP GP B NAAisolates from penicillin-allergic women who areTBHSTREP GP B NAAconsidered a high risk for anaphylaxis. Treatment withTBHSTREP GP B NAAvancomycin without additional testing is warranted ifTBH STREP GP B NAAresistance to clindamycin is noted.TBHSTREP GP B NAAPerformed at: - [facility]coThe [facility] HospitalTBHSTREP GP B [id number] [place], [place] [id number] STREP GP B NAALab Director: Kaden Merino PhD, Phone: [phone] (Source)Anatomical Location / LateralityCollection Method / VolumeCollection TimeReceived Time05/26/2025 4:00 PM EST05/26/2025 9:24 PM EST Narrative CLINISYNC - 05/29/2025 1:09 PM EST Authorizing ProviderResult TypeResult StatusAmy Bin ONEILL BLOOD ORDERABLES Final ResultPerforming OrganizationAddressCity/State/ZIP CodePhone Number CLINISYNC TB * (ABNORMAL) MHPT FIBRINOGEN (04/30/2025 11:12 AM EDT)ComponentValueRef Range Test MethodAnalysis TimePerformed AtPathologist OpubjxtrjBSRRBQLMZE788(H)200 - 400 mg/dLTBHSpecimen (Source)Anatomical Location / LateralityCollection Method / VolumeCollection TimeReceived Time04/30/2025 11:12 AM EDT1 11:20 AM EDT Narrative TRACE - 04/30/2025 12:12 PM EDT Authorizing ProviderResult TypeResult StatusCorey Jossue DOCLINISYNCFinal Result Performing OrganizationAddressCity/State/ZIP CodePhone Number [facility] * OB follow up transabdominal approach (04/09/2025 3:15 [...] Adonay Peraza MD Authorizing ProviderResult TypeResult StatusAmy [facility] US PROCEDURES Final Result * GLUCOSE 1 HOUR (03/14/2025 9:13 AM EDT)ComponentValueRef RangeTest Method Analysis TimePerformed AtPathologist SignatureGLUCOSE 1 VGHX755<130 mg/dLTBH Specimen (Source)Anatomical Location / LateralityCollection Method / Volume Collection TimeReceived Time03/14/2025 9:13 AM EDT03/14/2025 9:20 AM EDT Narrative CLINISYNC - 03/14/2025 11:40 AM EDT Authorizing ProviderResult TypeResult StatusAmy Bin ONEILL BLOOD ORDERABLES Final ResultPerforming OrganizationAddressCity/State/ZIP CodePhone Number CLINISYNC [facility] from Last 3 Months Insurance Care Teams Team MemberRelationshipSpecialtyStart DateEnd Mecca Leone MD [address] [facility], [facility] [address] [place] [address] PCP - GeneralFamily Medicine11/08/24
--- OUTSIDE RECORDS SUMMARY | 2025-06-07 10:00 | XMS_ITS | Encounter Summary ---
Author Organization [facility] Address [address] [place] [address] Care Team Providers Care Glycerin Supervisor Name Role Phone Mecca Leone MD Primary Care Provider [phone] Encounter Details DateTypeDepartmentCare Team (Latest Contact Info)Hrejhugsxlx06/19/2025linisync Result Encounter [facility]S External Department Unsolicited Ishaan Marcum DO [address] [place] [address] Social History Tobacco UseTypesPacks/DayYears UsedDateSmoking Tobacco: NeverSmokeless Tobacco: Current Comments:Vape Alcohol UseStandard Drinks/WeekCommentsNot Currently0 (1 standard drink = 0.6 oz pure alcohol)Estimated Date of SlwymgjsQhtntnatHzi57/07/2025Based on UltrasoundSex and Gender InformationValueDate RecordedSex Assigned at BirthNot on fileLegal EdnZimryj96/07/2024 2:18 PM EDTGender IdentityNot on fileSexual OrientationNot on filedocumented as of this encounter Plan of Treatment DateTypeDepartmentCare Team (Latest Contact Info)Ubkrpxmxnau02/24/2025 11:10 AM ESTRoutine [facility] [place] [facility] [address] [place] [phone] Ishaan Marcum DO [address] [place] [address] 06/17/2025 10:00 AM ESTOffice Visit [facility] [place] [facility] [address] [place] [address] Ishaan Marcum, DO [address] [facility] [place] [address] documented as of this encounter Procedures Procedure NamePriorityDate/TimeAssociated DiagnosisCommentsUS OB BPP W NON-JNPWTO2806/04/2025 11:42 PM EST documented in this encounter Results * US OB BPP W NON-STRESS (06/04/2025 11:42 PM EST)Anatomical Region LateralityModalityOtherSpecimen (Source)Anatomical Location / Laterality Collection Method / VolumeCollection TimeReceived Time06/04/2025 11:42 PM EST Narrative 06/04/2025 11:44 PM EST [facility] ?[address] ? [place] [address] ? Ultrasound Report ? Signed ? Patient: SHEFALICHRIST ?MR#: [id number] ?? : 2000 ?Acct:[id number] ?? Age/Sex: 25 / F ?ADM Date: ?? Loc: [facility] ??253-1 ? Attending Dr: Ishaan Marcum D.O. ? Ordering Physician: Ishaan Marcum D.O. ?? Date of Service: 06/04/25 ?? Procedure(s): US OB BPP w non-stress ?? Accession Number(s): [id number] ? cc: Ishaan Marcum D.O.; MECCA LEONE ? [facility] ? [address] ? [place] [address] ? Patient Name: ?? CHRIST MEEHAN ? MRN: [id number] ? date: 2000 ?Sex: F ?? Assigned Patient Location: [facility] ?? Current Patient Location: [facility] ?? Accession/Order Number: [id number] ?? Exam Date: 06/04/2025 ??17:30 ?Report Date: [...] M.D. ??06/04/2025 11:42 PM ? Dictation Location: [facility]-PC-20 ? Electronically authenticated by: [id number] ??Y ?? Date: 06/04/2025 ??23:42 ? Dictated By: ?Giovanny Bejarano D.O. ? Signed By: ?06/04/25 2344 ? DD/ 2342 ? TD/TT: ? Solution Make Up Operator: Procedure Note Radiology, Radiologist, MD - 06/05/2025 [place] [address] Ultrasound Report Signed Patient: CHRIST MEEHAN LMR#: [id number] : 2000Acct:[id number] Age/Sex: 25 FADM Date: Loc: [facility] 253-[address]: Ishaan Marcum D.O. Ordering Physician: Ishaan Marcum D.O. Date of Service: 06/04/25 Procedure(s): US OB BPP w non-stress Accession Number(s): [id number] cc: Ishaan Marcum D.O.; MECCA LEONE [place] [id number] Patient Name: CHRIST MEEHAN MRN: [id number] date: 2000 Sex: F Assigned Patient Location: [facility] Current Patient Location: [facility] Accession/Order Number: [id number] Exam Date: 06/04/2025 17:30 Report Date: 06/04/2025 [...] Bejarano M.D. 06/04/2025 11:42 PM Dictation Location: [place] [address] Electronically authenticated by: [id number] Y Date: 3:42 Dictated By: Giovanny Bejarano D.O. Signed By:06/04/252343 DD/ 41 TD/TT: Solution Make Up Operator: Authorizing ProviderResult TypeResult StatusCorey Jossue DOCLINISYNC IMAGINGFinal Result documented in this encounter Visit Diagnoses Not on filedocumented in this encounter Care Teams Team MemberRelationshipSpecialtyStart DateEnd Date Mecca [place] MD [address] [facility] [place] [address] PCP - GeneralFamily Medicine11/08/24documented as of this encounter
--- OUTSIDE RECORDS SUMMARY | 2025-06-07 10:00 | XMS_ITS | Encounter Summary ---
Author Organization [facility] Address [address] [facility] [place] [address] Care Team Providers Care Panama Hat Hydraulic Press Operator Name Role Phone Josr Martinez MD Primary Care Provider [phone] Encounter Details DateTypeDepartmentCare Team (Latest Contact Info)Ulykotuxhji90/10/2025linisync Result Encounter [facility]S External Department Unsolicited Lissa Steward PA [address] [place], [place] [address] Social History Tobacco UseTypesPacks/DayYears UsedDateSmoking Tobacco: NeverSmokeless Tobacco: Current Comments:Vape Alcohol UseStandard Drinks/WeekCommentsNot Currently0 (1 standard drink = 0.6 oz pure alcohol)Estimated Date of DemjwaixYnuwshsmNle62/07/2025Based on UltrasoundSex and Gender InformationValueDate RecordedSex Assigned at BirthNot on fileLegal HftVbgkgk77/07/2024 2:18 PM EDTGender IdentityNot on fileSexual OrientationNot on filedocumented as of this encounter Plan of Treatment DateTypeDepartmentCare Team (Latest Contact Info)Nxtqoiiexws93/24/2025 11:10 AM ESTRoutine [facility] [place] [facility] [address] [place] [phone] Edy Marcum DO [address] [place] [address] 06/17/2025 10:00 AM ESTOffice Visit [facility] [place] [facility] [address] [place] [address] Edy Marcum, DO [address] [facility] [place] [address] documented as of this encounter Procedures Procedure NamePriorityDate/TimeAssociated DiagnosisCommentsSTREP GP B NAARoutine 05/26/2025 4:00 PM EST documented in this encounter Results * STREP GP B CHERYL (05/26/2025 4:00 [...] clindamycin is noted.TBHSTREP GP B NAAPerformed at: [facility] CenterTBHSTRE[facility] GP B [id number] [place], [place] [id number] STREP GP B NAALab Director: Kaden Merino PhD, Phone: [phone] (Source)Anatomical Location / LateralityCollection Method / VolumeCollection TimeReceived Time05/26/2025 4:00 PM EST05/26/2025 9:24 PM EST Narrative [facility] - 05/29/2025 1:09 PM EST Authorizing ProviderResult TypeResult StatusAmy Bin PALAB BLOOD ORDERABLES Final ResultPerforming OrganizationAddressCity/State/ZIP CodePhone Number CLINIS[facility]NC TB documented in this encounter Visit Diagnoses Not on filedocumented in this encounter Care Teams Team MemberRelationshipSpecialtyStart DateEnd Date Josr Martinez MD [address] [facility], [facility] [address] [place] [phone] PCP - GeneralFamily Medicine11/08/24documented as of this encounter
--- OUTSIDE RECORDS SUMMARY | 2025-06-07 10:00 | XMS_ITS | Encounter Summary ---
Author Organization [facility] Address [address] [place] [address] Care Team Providers Care Practice Specialist Name Role Phone Josr Martinez MD Primary Care Provider [phone] Encounter Details DateTypeDepartmentCare Team (Latest Contact Info)Uxyyiardkpc86/13/2025Travel Social History Tobacco UseTypesPacks/DayYears UsedDateSmoking Tobacco: NeverSmokeless Tobacco: Current Comments:Vape Alcohol UseStandard Drinks/WeekCommentsNot Currently0 (1 standard drink = 0.6 oz pure alcohol)Estimated Date of VyrdmuraAxiuqbahMey74/07/2025Based on UltrasoundSex and Gender InformationValueDate RecordedSex Assigned at BirthNot on fileLegal ArdLsehka85/07/2024 2:18 PM EDTGender IdentityNot on fileSexual OrientationNot on filedocumented as of this encounter Plan of Treatment DateTypeDepartmentCare Team (Latest Contact Info)Lpgypylyfaq07/24/2025 11:10 AM ESTRoutine [facility] [address] [facility] [place] [address] Edy Marcum, DO [address] [place], [place] [address] 06/17/2025 10:00 AM ESTOffice Visit [place] MACKEY [address] [facility] [address] [place] [address] Edy Marcum, DO [address] [facility] [address] [place], [facility]11 documented as of this encounter Visit Diagnoses Not on filedocumented in this encounter Care Teams Team MemberRelationshipSpecialtyStart DateEnd Date Josr [place] MD [address] [facility], [facility] [address] [place] [address] PCP - GeneralFamily Medicine11/08/24documented as of this encounter
--- OUTSIDE RECORDS SUMMARY | 2025-06-07 10:00 | XMS_ITS | Clinical Summary ---
Author Organization [facility] Address [address] [place] [address] Phone Care Team Providers Care Slicer Machine Operator Name Role Phone Josr Martinez PA-C Primary Care Provider [phone] Allergies No known active allergies Medications MedicationSigDispense [...] Additional Information Patient not taking.Reported on 11/19/2024 5-UTAD-OECDZ ACID-OM3 ORAL Take by mouth.Active Active Problems ProblemNoted DateDiagnosed DateLow blood sugar03/21/2023Low vitamin B12 level 03/21/2023Vitamin D wtmotpcpuypgg32/05/2023Elevated cqvhdzyyg86/05/2023 Wmbitkplryiyh31/05/2023remenstrual bnuqyktb75/05/2023remenstrual syndrome 03/21/2023eneralized anxiety ivgrlgyw55/14/2023 Family History Medical HistoryRelationNameCommentsHypertensionFatherDiabetesMaternal GrandfatherAlzheimer's diseaseMaternal GrandmotherDiabetesPaternal Grandfather Heart diseasePaternal GrandfatherRelationNameStatusCommentsFatherMaternal GrandfatherMaternal GrandmotherPaternal Grandfather Social History Tobacco UseTypesPacks/DayYears UsedDateSmoking Tobacco: NeverSmokeless Tobacco: Never Tobacco Cessation:Counseling Given: Not Answered PHQ-2AnswerDate RecordedPatient Health Questionnaire-2 Qrwhz574 CommentsUnknownSex and Gender InformationValueDate RecordedSex Assigned at Fntefw1301/09/2024 2:41 PM EDTLegal WovRhnfqe36/25/2022 10:21 PM ESTGender ZahblafsFnbazt95/25/2024 2:41 PM EDTSexual OrientationNot on file Last Filed Vital Signs Vital SignReadingTime TakenCommentsBlood Dbxgaopj075/78011/19/2024 7:27 AM EDT Lkkgm903211/19/2024 7:27 AM ZBYRiqpdquphgb85.6 ??C (97.8 ??F)09/18/2024 3:27 PM ESTRespiratory Ywqw368209/18/2024 3:27 PM ESTOxygen Zroahtbgmz01%11/19/2024 7:27 AM EDTInhaled Oxygen Concentration--Vdjqgg41.3 kg (144 lb)11/19/2024 7:27 AM EDT Fmeyps467.8 cm (5' 2.5 )11/19/2024 7:27 AM EDTBody Mass Index25.9211/19/2024 7:27 AM EDT Plan of Treatment DateTypeDepartmentCare Team (Latest Contact Info)Hfzqnipxdjy39/07/2026 8:00 AM EDTOffice Visit [facility] [address] [place] [address] Josr Martinez PA-C [address] [facility], [address] [place] [address] Health MaintenanceDue DateLast DoneCommentsHIV Ybhrorpcg1998Lipid Panel 1998MMR Vaccines (1 of 1 - Standard series)1999Hepatitis C Screening 01/24/2016Hepatitis B Vaccines (1 of 3 - 19+ 3-dose series)2017HPV/Cotest 2019DTaP/Tdap/Td Vaccines (1 - Tdap)01/24/2020HPV Vaccines (1 - 3-dose standard series)2025Influenza Vaccine (#1)5COVID-19 Vaccine (1 - season)5Yearly Adult Tyeqtesm89/26/49377708/10/2023, 07/27/2022, 09/25/2020ervical Cancer Vxqlkduca92/25/2027Pap Smear7108/10/2023, 07/29/2021Zoster Vaccines (1 of 2)01/24/2048HIB VaccinesAged [...] Type:Not on file Address: [id number] Care Teams Team MemberRelationshipSpecialtyStart DateEnd Josr Moran PA-C [address] [facility], [place] [address] PCP - GeneralFamily Medicine11/24/23
--- OUTSIDE RECORDS SUMMARY | 2025-06-07 10:00 | XMS_ITS | Encounter Summary ---
Author Organization [facility] Address [address] [place] [address] Care Team Providers Care Traffic I Manager Name Role Phone Josr Martinez MD Primary Care Provider [phone] Encounter Details DateTypeDepartmentCare Team (Latest Contact Info)Obqfcykoeeg49/19/2025linisync Result Encounter [facility]S External Department Unsolicited Ed[place] Marcum DO [address] [place] [address] Social History Tobacco UseTypesPacks/DayYears UsedDateSmoking Tobacco: NeverSmokeless Tobacco: Current Comments:Vape Alcohol UseStandard Drinks/WeekCommentsNot Currently0 (1 standard drink = 0.6 oz pure alcohol)Estimated Date of HnjharsrJykybjoyHkh69/07/2025Based on UltrasoundSex and Gender InformationValueDate RecordedSex Assigned at BirthNot on fileLegal HitQaqcon01/07/2024 2:18 PM EDTGender IdentityNot on fileSexual OrientationNot on filedocumented as of this encounter Plan of Treatment DateTypeDepartmentCare Team (Latest Contact Info)Zkpohjwyorg02/24/2025 11:10 AM ESTRoutine [facility] [place] [facility] [address] [place] [address] Edy Marcum DO [address] [place] [address] 06/17/2025 10:00 AM ESTOffice Visit [facility] [place] [facility] [address] [facility] [place] [address] dEy Marcum, DO [address] [facility] [place] [address] documented as of this encounter Procedures Procedure NamePriorityDate/TimeAssociated DiagnosisCommentsTBH CREATININERoutine 06/04/2025 4:53 PM EST SRMCOH PROTHROMBIN TIME INR W/O IMOZVbpniyo55/19/2025 4:53 PM EST CCF IKONxhjjbl26/19/2025 4:53 PM EST CCF OAYMQcwvstq13/19/2025 4:53 PM EST CCF WMLXvjrzle44/19/2025 4:53 PM EST ALL URIC HSTQRiqbbbt73/19/2025 4:53 PM EST ALL TMKJwlwneb89/19/2025 4:53 PM EST ALL CBC WITH AUTO NDDRQbalgjv90/19/2025 4:53 PM EST ALL UHGFiptyml50/19/2025 4:53 PM EST TBH URINE T PROTEIN CREAT OUKXSOndgisa21/19/2025 4:35 PM EST documented in this encounter Results * CCF APTT (06/04/2025 4:53 PM EST)ComponentValueRef RangeTest MethodAnalysis TimePerformed AtPathologist SignaturePARTIAL THROMBOPLASTIN TIME23.822.3 - 36.2 secTBHSpecimen (Source)Anatomical Location / LateralityCollection Method / VolumeCollection TimeReceived Time06/04/2025 4:53 PM EST06/04/2025 4:58 PM EST Narrative [facility] - 06/04/2025 5:16 PM EST Authorizing ProviderResult TypeResult StatusCorey Jossue DOCLINISYNCFinal Result Performing OrganizationAddressCity/State/ZIP CodePhone Number [facility] * SRMCOH PROTHROMBIN TIME INR W/O COUM (06/04/2025 4:53 PM EST)ComponentValueRef RangeTest MethodAnalysis TimePerformed AtPathologist SignaturePROTHROMBIN TIME 9.79.0 - 11.6 secTBHTBH INR<0.93TBHComment: DESIRED INR: 2.0-3.0 CONDITIONS NOT LISTED BELOW 2.5-3.5 FOR PROSTHETIC HEART VALVE REPLACEMENT 2.5-3.5 RECURRENT THROMBOSIS Specimen (Source)Anatomical Location / LateralityCollection Method / Volume Collection TimeReceived Time06/04/2025 4:53 PM EST06/04/2025 4:58 PM EST Narrative CLIN[facility]NC - 06/04/2025 5:16 PM EST Authorizing ProviderResult TypeResult StatusCorey Jossue DOCLINISYNCFinal Result Performing OrganizationAddressCity/State/ZIP CodePhone Number [facility] * (ABNORMAL) ALL CBC WITH AUTO DIFF (06/04/2025 4:53 PM EST)ComponentValueRef RangeTest MethodAnalysis TimePerformed AtPathologist SignatureTBH WBC11.2(H) 4.0 - 11.0 10 3/uLTBHTBH RBC3.78(L)4.20 - 5.40 10 6/uLTBHTBH HGB10.8(L)12.0 - 16.0 g/dLTBHTBH HCT32.8(L)36.0 - 48.0 %TBHTBH MCV86.881.0 - 99.0 fLTBHTBH MCH 28.626.7 - 34.0 pgTBHTBH MCHC32.929.9 - 35.2 g/dLTBHTBH RDW12.111.0 - 15.0 % TBHTBH IXI348072 - 450 10 3/uLTBHTBH MPV10.79.5 - 13.5 fLTBHNEUTROPHILS PERCENT AUTO74.443.0 - 75.0 %TBHLYMPHOCYTES PERCENT AUTO17.5(L)20.5 - 60.0 % TBHMONOCYTES PERCENT AUTO6.31.7 - 12.0 %TBHTBH EO %0.6(L)0.9 - 7.0 %TBH BASOPHILS PERCENT AUTO0.70.2 - 2.0 %TBHIMMATURE GRANULOCYTES PCT AUTO0.50.0 - 0.5 %TBHNEUTROPHILS ABSOLUTE AUTO8.4(H)1.4 - 6.5 10 3/uLTBHLYMPHOCYTES ABSOLUTE AUTO2.01.2 - 3.8 10 3/uLTBHMONOCYTES ABSOLUTE AUTO0.70.3 - 0.8 10 3/uLTBHTBH EO #0.10.0 - 0.7 10 3/uLTBHBASOPHILS ABSOLUTE AUTO0.10.0 - 0.1 10 3/uLTBHIMMATURE GRANULOCYTES ABS AUTO0.06(H)0.00 - 0.03 10 3/uLTBHSpecimen (Source)Anatomical Location / LateralityCollection Method / VolumeCollection TimeReceived Time06/04/2025 4:53 PM EST06/04/2025 4:58 PM EST Narrative CLINISYNC - 06/04/2025 5:16 PM EST Authorizing ProviderResult TypeResult StatusCorey Jossue DOCLINISYNCFinal Result Performing OrganizationAddressCity/State/ZIP CodePhone Number [facility] * (ABNORMAL) ALL LDH (06/04/2025 4:53 PM EST)ComponentValueRef RangeTest Method Analysis TimePerformed AtPathologist SignatureLACTATE LVZGTCHUCVGSU943(H)81 - 234 U/LTBHSpecimen (Source)Anatomical Location / LateralityCollection Method / VolumeCollection TimeReceived Time06/04/2025 4:53 PM EST06/04/2025 4:58 PM EST Narrative CLINISYNC - 06/04/2025 5:14 PM EST Authorizing ProviderResult TypeResult StatusCorey Jossue DOCLINISYNCFinal Result Performing OrganizationAddressCity/State/ZIP CodePhone Number [facility] * CCF ALT (06/04/2025 4:53 PM EST)ComponentValueRef RangeTest MethodAnalysis TimePerformed AtPathologist SignatureALANINE MUGOOQXAGGUEFPGA6677 - 59 U/LTBH Specimen (Source)Anatomical Location / LateralityCollection Method / Volume Collection TimeReceived Time06/04/2025 4:53 PM EST06/04/2025 4:58 PM EST Narrative CLINISYNC - 06/04/2025 5:14 PM EST Authorizing ProviderResult TypeResult StatusCorey Jossue DOCLINISYNCFinal Result Performing OrganizationAddressCity/State/ZIP CodePhone Number [facility] * [facility]CF AST (06/04/2025 4:53 PM EST)ComponentValueRef RangeTest MethodAnalysis TimePerformed AtPathologist SignatureASPARTATE AMINO CAJVBQGIHZD0604 - 37 U/L TBHSpecimen (Source)Anatomical Location / LateralityCollection Method / Volume Collection TimeReceived Time06/04/2025 4:53 PM EST06/04/2025 4:58 PM EST Narrative CLINISYNC - 06/04/2025 5:14 PM EST Authorizing ProviderResult TypeResult StatusCorey Jossue DOCLINISYNCFinal Result Performing OrganizationAddressCity/State/ZIP CodePhone Number [facility] * ALL URIC ACID (06/04/2025 4:53 PM EST)ComponentValueRef RangeTest Method Analysis TimePerformed AtPathologist SignatureURIC ACID4.12.6 - 6.0 mg/dLTBH Specimen (Source)Anatomical Location / LateralityCollection Method / Volume Collection TimeReceived Time06/04/2025 4:53 PM EST06/04/2025 4:58 PM EST Narrative CLINISYNC - 06/04/2025 5:14 PM EST Authorizing ProviderResult TypeResult StatusCorey Jossue DOCLINISYNCFinal Result Performing OrganizationAddressty/State/ZIP CodePhone Number [facility] * TBH CREATININE (06/04/2025 4:53 PM EST)ComponentValueRef RangeTest Method Analysis TimePerformed AtPathologist SignatureCREATININE0.690.55 - 1.02 mg/dL TBHTBH EGFR-AF MONGOLIAN>60>=60 mL/min/1.73m 2TBHTBH EGFR-NON AF MONGOLIAN>60 >=60 mL/min/1.73m 2TBHSpecimen (Source)Anatomical Location / Laterality Collection Method / VolumeCollection TimeReceived Time06/04/2025 4:53 PM EST 06/04/2025 4:58 PM EST Narrative CLINISYNC - 06/04/2025 5:14 PM EST Authorizing ProviderResult TypeResult StatusCorey Jossue DOCLINISYNCFinal Result Performing OrganizationAddressCity/State/ZIP CodePhone Number [facility]H * (ABNORMAL) ALL BUN (06/04/2025 4:53 PM EST)ComponentValueRef RangeTest Method Analysis TimePerformed AtPathologist SignatureBLOOD UREA NITROGEN4.0(L)7.0 - 18.0 mg/dLTBHSpecimen (Source)Anatomical Location / LateralityCollection Method / VolumeCollection TimeReceived Time06/04/2025 4:53 PM EST06/04/2025 4:58 PM EST Narrative CLINISYNC - 06/04/2025 5:14 PM EST Authorizing ProviderResult TypeResult StatusCorey Jossue DOCLINISYNCFinal Result Performing OrganizationAddressCity/State/ZIP CodePhone Number [facility]H * TBH URINE T PROTEIN CREAT RATIO (06/04/2025 4:35 PM EST)ComponentValueRef RangeTest MethodAnalysis TimePerformed AtPathologist SignatureTOTAL PROTEIN URINE RANDOM<6.0<=11.9 mg/dLTBHCREATININE URINE CHHZPM69.1420.00 - 300.00 mg/dLTBHSpecimen (Source)Anatomical Location / LateralityCollection Method / VolumeCollection TimeReceived Time06/04/2025 4:35 PM EST06/04/2025 4:58 PM EST Narrative CLINISYNC - 06/04/2025 5:12 PM EST Authorizing ProviderResult TypeResult StatusCorey Jossue DOCLINISYNCFinal Result Performing OrganizationAddressCity/State/ZIP CodePhone Number [facility] TBH documented in this encounter Visit Diagnoses Not on filedocumented in this encounter Care Teams Team MemberRelationshipSpecialtyStart DateEnd Date Josr Martinez MD [address] [facility] [place][note 2], [facility] [address] [place] [address] PCP - GeneralFamily Medicine11/08/24documented as of this encounter
--- OUTSIDE RECORDS SUMMARY | 2025-06-07 10:00 | XMS_ITS | Encounter Summary ---
Author Organization [facility] Address [address] [facility] [place] [address] Care Team Providers Care Processing Engineer Name Role Phone Josr Martinez MD Primary Care Provider [phone] Encounter Details DateTypeDepartmentCare Team (Latest Contact Info)Xditoohvtpl72/09/2025Travel Social History Tobacco UseTypesPacks/DayYears UsedDateSmoking Tobacco: Never Assessed Estimated Date of UmwcdmmwGksbukazHpp31/07/2025Based on UltrasoundSex and Gender InformationValueDate RecordedSex Assigned at BirthNot on fileLegal SexFemale 11/21/2023 2:18 PM EDTGender IdentityNot on fileSexual OrientationNot on file documented as of this encounter Plan of Treatment DateTypeDepartmentCare Team (Latest Contact Info)Icsytzbgjvg79/24/2025 11:10 AM ESTRoutine [facility] [place] [address] [place] [address] [place] [address] Edy Marcum, [address] [facility] [address] [place], [place] [address] 06/17/2025 10:00 AM ESTOffice Visit NOMLatisha MACKEY [address] [facility] [place] [address] Edy Marcum DO [address] [facility] [address] [place], [facility]11 documented as of this encounter Visit Diagnoses Not on filedocumented in this encounter Care Teams Team MemberRelationshipSpecialtyStart DateEnd Date Josr [place] MD [address] [facility], [facility] [address] [place] [address] PCP - GeneralFamily Medicine11/08/24documented as of this encounter
[2025-06-07 10:22] VITALS: BP 117/78; PULSE 85
== END 2025-06-07 10:49 | disposition home or self-care (01) ==
LOC: FBCO 09:56 → FBC 09:58
PROVIDERS: Visit Provider Obstetrics & Gynecology
DX: O26.893 Other specified pregnancy related conditions, third trimester (principal); Z3A.37 37 weeks gestation of pregnancy
CPT/HCPCS: 59025

== ENCOUNTER 2025-06-11 13:53 | Outpatient (OUT) | payer BC, SELFPAY ==
--- OUTSIDE RECORDS SUMMARY | 2025-06-04 15:20 | XMS_ITS | Encounter Summary ---
Author Organization [facility] Address [address] [facility] [place] [address] Care Team Providers Care 8Th Grade Mathematics Teacher Name Role Phone Josr Martinez MD Primary Care Provider [phone] Reason for Visit * ReasonCommentsRoutine Visit Encounter Details DateTypeDepartmentCare Team (Latest Contact Info)Dvlxestzwqw99/19/2025 3:20 PM ESTRoutine [facility] Connie OBGYJessica [address] [place] [phone] Lissa Steward PA [address] [facility] [address] [place], [facility]11 37 weeks gestation of ([facility]); Third trimester ([facility]); induced hypertension, antepartum ([facility]) Social History Tobacco UseTypesPacks/DayYears UsedDateSmoking Tobacco: NeverSmokeless Tobacco: Current Comments:Vape Alcohol UseStandard Drinks/WeekCommentsNot Currently0 (1 standard drink = 0.6 oz pure alcohol)Estimated Date of CxmwzysgYxlrujlcHqd22/07/2025Based on UltrasoundSex and Gender InformationValueDate RecordedSex Assigned at BirthNot on fileLegal NuwJhyihv88/07/2024 2:18 PM EDTGender IdentityNot on fileSexual OrientationNot on filedocumented as of this encounter Last Filed Vital Signs Vital SignReadingTime TakenCommentsBlood Vsoadfsb906/9211/ 3:42 PM EST 138/90Pulse--Temperature--Respiratory Rate--Oxygen Saturation--Inhaled Oxygen Concentration--Fxltus15 kg (183 lb)06/04/2025 3:42 PM ESTHeight--Body Mass [...] nursing note reviewed. Exam conducted with a software test developer present. Vitals: Estimated body mass index is 34.6 kg/m?? as calculated from the following: Height as of 11/08/24: 5' 1 . Weight as of 05/26/25: 183 lb 1.9 oz. BP: Patient's last menstrual period was 09/06/2024. Assessment/Plan ICD-10-CM 1. 37 weeks gestation of ([facility]) Z3A.37 POCT urinalysis dipstick manually resulted US biophysical profile w non stress test Protein / creatinine ratio, urine Protein / creatinine ratio, urine 2. Third trimester ([facility]) Z34.93 POCT urinalysis dipstick manually resulted US biophysical profile w non stress test Protein / creatinine ratio, urine Protein / creatinine ratio, urine 3. induced hypertension, antepartum ([facility]) O13.9 US biophysical profile w non [...] Plan of Treatment DateTypeDepartmentCare Team (Latest Contact Info)Ipcyqmhdxch16/19/2026 8:30 AM ESTProcedure Visit [facility] Connie MACKEY [address] [place] [address] JossueEdy meza DO [address] [facility] [address] [place] [address] NameTypePriorityAssociated DiagnosesOrder ScheduleUS biophysical profile w non [...] ratio, urineLab Routine 37 weeks gestation of ([facility]) Third trimester ([facility]) induced hypertension, antepartum ([facility]) Expected: 06/04/2025 (Approximate), Expires: 06/04/2026documented as of this encounter Procedures Procedure NamePriorityDate/TimeAssociated DiagnosisCommentsPOCT URINALYSIS CXQTEOQFUwfxcmy00/19/2025 3:33 PM EST 37 weeks gestation of ([facility]) Third trimester ([facility]) documented in this encounter Results * (ABNORMAL) [...] / LateralityCollection Method / VolumeCollection Time Received RjthDuprd02/19/2025 3:33 PM EST Narrative Authorizing ProviderResult TypeResult StatusIn[facility] TEST ENTER/EDIT ORDERABLESFinal Result documented in this encounter Visit Diagnoses Diagnosis 37 weeks gestation of ([facility]) Third trimester ([facility]) state, incidental induced hypertension, antepartum ([facility]) Transient hypertension of , antepartum documented in this encounter Care Teams Team MemberRelationshipSpecialtyStart DateEnd Date Josr Martinez MD [address] [facility][note 3], [facility] [address] [place] [phone] PCP - GeneralFamily Medicine11/08/24documented as of this encounter
--- OUTSIDE RECORDS SUMMARY | 2025-06-09 11:10 | XMS_ITS | Encounter Summary ---
Author Organization [facility] Address [address] [place] [facility] [place] [address] Care Team Providers Care Barrel Lathe Operator Name Role Phone Josr Martinez MD Primary Care Provider [phone] Reason for Visit * ReasonCommentsRoutine Visit Encounter Details DateTypeDepartmentCare Team (Latest Contact Info)Smblkufmlau78/24/2025 11:10 AM ESTRoutine [facility] [address] [place] [phone] Edy Marcum DO [address] [facility] [address] [place] [phone] Third trimester ([facility]); 38 weeks gestation of ([facility]) Social History Tobacco UseTypesPacks/DayYears UsedDateSmoking Tobacco: NeverSmokeless Tobacco: Current Comments:Vape Alcohol UseStandard Drinks/WeekCommentsNot Currently0 (1 standard drink = 0.6 oz pure alcohol)Estimated Date of ErsiovdlPvarcbtwKxb87/07/2025Based on UltrasoundSex and Gender InformationValueDate RecordedSex Assigned at BirthNot on fileLegal IopZgwprd65/07/2024 2:18 PM EDTGender IdentityNot on fileSexual OrientationNot on filedocumented as of this encounter Last Filed Vital Signs Vital SignReadingTime TakenCommentsBlood Ayyvfexq389/7006/09/2025 11:37 AM EST Pulse--Temperature--Respiratory Rate--Oxygen Saturation--Inhaled Oxygen Concentration--Qlhzjr47.6 kg (182 lb)06/09/2025 11:37 AM ESTHeight--Body Mass Index34.3904 10:59 AM EDTdocumented in this encounter Progress Notes * Cristin Beckett NP - 06/09/2025 11:10 AM EST Reason for Appointment: Patient ID: Karen Walton is a 25 y.o. female who presents for Routine Visit Patient presents today for 1 Week Post Op Follow Up appointment. MEDICATIONS Current Outpatient Medications Medication Instructions [...] note reviewed. Exam conducted with a senior net engineer present. Vitals: Estimated body mass index is 34.39 kg/m?? as calculated from the following: Height as of 11/08/24: 5' 1 . Weight as of this encounter: 182 lb. BP: 118/70 Patient's last menstrual period was 09/06/2024. Assessment/Plan ICD-10-CM 1. Third trimester ([facility]) Z34.93 2. 38 weeks gestation of ([facility]) Z3A.38 POCT urinalysis dipstick manually resulted Assessment/Plan Return OB: Patient presents today for a routine obstetrics appointment. Patient is currently 38w1d . Patient states she is doing well [...] week for routine OB appointment. Documented by Cristin Beckett NP on behalf of: Edy Marcum DO * Shirley Amaya LPN - 06/09/2025 11:10 AM EST 2:45pm Called patient and inquired if she was able to move to 06/17/25 @ 11pm for IOL. PVU documented in this encounter Plan of Treatment DateTypeDepartmentCare Team (Latest Contact Info)Osflqdccmju36/19/2026 8:30 AM ESTProcedure Visit [facility] [address] [facility] [place] [address] Edy Marcum DO [address] [place], [place] [phone] documented as of this encounter Procedures Procedure NamePriorityDate/TimeAssociated DiagnosisCommentsPOCT URINALYSIS JRUDUFQUIneutbh47/ 11:37 AM EST 38 weeks gestation of ([facility]) documented in this encounter Results * POCT urinalysis dipstick manually resulted (06/09/2025 11:37 AM EST)Component ValueRef RangeTest MethodAnalysis TimePerformed AtPathologist SignatureColor, UAYellowClarity, UAClearGlucose, UANegativeNegative - 2000(110) ++++ mg/dL Bilirubin, UANegativeNegative - 4(70) +++ mg/dLKetones, UANegativeNegative - 160(16) ++++ mg/dLSpec Grav, UA1.0051 - 1.03Blood, UANegativeNegative - 50 Richard/mcLpH, UA7.05 - 9Protein, UANegativeNegative - 2000(20) ++++ mg/dL Urobilinogen, UA1.00.2 - 12 mg/dLLeukocytes, UANegativeNegative - 500+++ Garry/mcLNitrite, UANegativeNegative - PositiveSpecimen (Source)Anatomical Location / LateralityCollection Method / VolumeCollection TimeReceived Time Urine06/09/2025 11:37 AM EST Narrative Authorizing ProviderResult TypeResult StatusCorey Jossue DOPOINT OF CARE TEST ENTER/EDIT ORDERABLESFinal Result documented in this encounter Visit Diagnoses Diagnosis Third trimester ([facility]) state, incidental 38 weeks gestation of ([facility]) documented in this encounter Care Teams Team MemberRelationshipSpecialtyStart DateEnd Date Josr Martinez MD [address] [facility][note 3], [facility] [place] [address] [place] [address] PCP - GeneralFamily Medicine11/08/24documented as of this encounter
--- NOTE | 2025-06-11 | US_ITS ---
[address] [address] Patient Name: CHRIST MEEHAN MRN: [id number] date: 2000 Sex: F Assigned Patient Location: US Current Patient Location: Accession/Order Number: [id number] Exam Date: 06/11/2025 14:00 Report Date: 06/11/2025 15:59 At the request of: ISHAAN PARK DO Procedure: US OB BPP w non-stress Ultrasound biophysical profile INDICATION: -induced hypertension COMPARISON: 06/04/2025 FINDINGS/IMPRESSION: Fetus is cephalic position. heart rate 147 bpm. CHAI 14.2 cm. Biophysical profile 02/21 Impression dictated by: Jose Manuel Guan M.D. 06/11/2025 3:59 PM Dictation Location: [place] [address] Electronically authenticated by: [id number] Y Date: 06/11/2025 15:59
--- OUTSIDE RECORDS SUMMARY | 2025-06-11 13:56 | XMS_ITS | Encounter Summary ---
Author Organization [facility] Address [address] [facility] [place] [address] Care Team Providers Care Plate Washer Name Role Phone Josr Martinez MD Primary Care Provider [phone] Encounter Details DateTypeDepartmentCare Team (Latest Contact Info)Gtvsfoxylfw36/10/2025linisync Result Encounter [facility] External Department Unsolicited Lissa Steward PA [address] [place], [place] [address] Social History Tobacco UseTypesPacks/DayYears UsedDateSmoking Tobacco: NeverSmokeless Tobacco: Current Comments:Vape Alcohol UseStandard Drinks/WeekCommentsNot Currently0 (1 standard drink = 0.6 oz pure alcohol)Estimated Date of ChhmvldvLdanmwmbKfo53/07/2025Based on UltrasoundSex and Gender InformationValueDate RecordedSex Assigned at BirthNot on fileLegal TzoZrhkxd19/07/2024 2:18 PM EDTGender IdentityNot on fileSexual OrientationNot on filedocumented as of this encounter Plan of Treatment DateTypeDedrew memorial hospitalCare Team (Latest Contact Info)Nlvyurexjea17/19/2026 8:30 AM ESTProcedure Visit [facility] [place] [address] [facility] [place] [address] Edy Marcum DO [address] [facility] [address] [place] [place], [facility]11 documented as of this encounter Procedures Procedure [...] Congress of Obstetricians and GynecologistsTBHSTREP GP B HCERYL(ACOG) guidelines for prevention of group BTBHSTREP GP [...] is noted.TBHSTREP GP B NAAPerformed at: - [facility] VaughanTBHSTREP GP B [id number] [place], [place] [id number] STREP GP B NAALab Director: Kaden Merino PhD, Phone: [phone] (Source)Anatomical Location / LateralityCollection Method / VolumeCollection TimeReceived Time05/26/2025 4:00 PM EST05/26/2025 9:24 PM EST Narrative [facility] - 05/29/2025 1:09 PM EST Authorizing ProviderResult TypeResult StatusAmy Bin PALAB BLOOD ORDERABLES Final ResultPerforming OrganizationAddressCity/State/ZIP CodePhone Number [facility] documented in this encounter Visit Diagnoses Not on filedocumented in this encounter Care Teams Team MemberRelationshipSpecialtyStart DateEnd Date Josr Martinez MD [address] [facility], [facility] [address] [place] [address] PCP - GeneralFamily Medicine11/08/24documented as of this encounter
--- OUTSIDE RECORDS SUMMARY | 2025-06-11 13:56 | XMS_ITS | Encounter Summary ---
Author Organization [facility] Address [address] [facility] [place] [address] Care Team Providers Care Gas Fitter Name Role Phone Mecca Leone MD Primary Care Provider [phone] Encounter Details DateTypeDepartmentCare Team (Latest Contact Info)Dpkxnvrtczv36/19/2025linisync Result Encounter [facility] External Department Unsolicited Ishaan Marcum, DO [address] [place], [facility]11 Social History Tobacco UseTypesPacks/DayYears UsedDateSmoking Tobacco: NeverSmokeless Tobacco: Current Comments:Vape Alcohol UseStandard Drinks/WeekCommentsNot Currently0 (1 standard drink = 0.6 oz pure alcohol)Estimated Date of ShjrgwluCgfjnfkiHfp00/07/2025Based on UltrasoundSex and Gender InformationValueDate RecordedSex Assigned at BirthNot on fileLegal KayBtcran55/07/2024 2:18 PM EDTGender IdentityNot on fileSexual OrientationNot on filedocumented as of this encounter Plan of Treatment DateTypeDepartmentCare Team (Latest Contact Info)Qnsrqfpshco73/19/2026 8:30 AM ESTProcedure Visit [facility] WARE[facility] [address] [facility] [place] [address] Ishaan Marcum DO [address] [place] [address] documented as of this encounter Procedures Procedure NamePriorityDate/TimeAssociated DiagnosisCommentsUS OB BPP W NON-EBDHNF5506/04/2025 11:42 PM EST documented in this encounter Results * US OB BPP W NON-STRESS (06/04/2025 11:42 PM EST)Anatomical Region LateralityModalityOtherSpecimen (Source)Anatomical Location / Laterality Collection Method / VolumeCollection TimeReceived Time06/04/2025 11:42 PM EST Narrative 06/04/2025 11:44 PM EST [facility] ?[address] ? [place], [facility]11 ? Ultrasound Report ? Signed ? Patient: SHEFALI,CHRIST L ?MR#: [id number] ?? : 2000 ?Acct:[id number] ?? Age/Sex: 25 / F ?ADM Date: ?? Loc: [facility] ??253-1 ? Attending Dr: Ishaan Marcum D.O. ? Ordering Physician: Ishaan Marcum D.O. ?? Date of Service: 06/04/25 ?? Procedure(s): US OB BPP w non-stress ?? Accession Number(s): [id number] ? cc: Ishaan Marcum D.O.; MECCA LEONE ? [facility] ? [address] ? [place] [address] ? Patient Name: ?? CHRIST MEEHAN ? MRN: [facility]:[id number] ? date: 2000 ?Sex: F ?? Assigned Patient Location: [facility] ?? Current Patient Location: [facility] ?? Accession/Order Number: [id number] ?? Exam Date: 06/04/2025 ??17:30 ?Report Date: [...] Dictation Location: RADIO-PC-20 ? Electronically authenticated by: [id number] ??Y ?? Date: 06/04/2025 ??23:42 ? Dictated By: ?Giovanny Bejarano D.O. ? Signed By: ?06/04/25 2344 ? DD/ 2342 ? TD/TT: ? Director Of Business Development: Procedure Note Radiology, Radiologist, - 06/05/2025 [place] [address] Ultrasound Report Signed Patient: CHRIST MEEHAN LMR#: [id number] : 2000Acct:[id number] Age/Sex: FADM Date: Loc: [facility] 253-[address]: Ishaan Marcum D.O. Ordering Physician: Ishaan Marcum D.O. Date of Service: 06/04/25 Procedure(s): US OB BPP w non-stress Accession Number(s): [id number] cc: Ishaan Marcum D.O.; MECCA LEONE The [place] [address] Patient Name: CHRIST MEEHAN MRN: [id number] date: 2000 Sex: F Assigned Patient Location: [facility] Current Patient Location: [facility] Accession/Order Number: [id number] Exam Date: 06/04/2025 17:30 Report Date: 06/04/2025 [...] Bejarano M.D. 06/04/2025 11:42 PM Dictation Location: [place] [address] Electronically authenticated by: [id number] Y Date: 3:42 Dictated By: Giovanny Bejarano D.O. Signed By:06/04/252343 DD/ 41 TD/TT: Director Of Business Development: Authorizing ProviderResult TypeResult StatusCorey Jossue DOCLINISYNC IMAGINGFinal Result documented in this encounter Visit Diagnoses Not on filedocumented in this encounter Care Teams Team MemberRelationshipSpecialtyStart DateEnd Date Mecca Leone MD [address] [facility], [facility] [address] [place] [address] PCP - GeneralFamily Medicine11/08/24documented as of this encounter
--- OUTSIDE RECORDS SUMMARY | 2025-06-11 13:56 | XMS_ITS | Encounter Summary ---
Author Organization [facility] Address [address] [facility] [place] [address] Care Team Providers Care Meals On Wheels Driver Name Role Phone Josr Martinez MD Primary Care Provider [phone] Encounter Details DateTypeDepartmentCare Team (Latest Contact Info)Qaeritejoxv88/13/2025Travel Social History Tobacco UseTypesPacks/DayYears UsedDateSmoking Tobacco: NeverSmokeless Tobacco: Current Comments:Vape Alcohol UseStandard Drinks/WeekCommentsNot Currently0 (1 standard drink = 0.6 oz pure alcohol)Estimated Date of JycvbgswNzgynvcbLff80/07/2025Based on UltrasoundSex and Gender InformationValueDate RecordedSex Assigned at BirthNot on fileLegal CwlSfdody51/07/2024 2:18 PM EDTGender IdentityNot on fileSexual OrientationNot on filedocumented as of this encounter Plan of Treatment DateTypeDepartmentCare Team (Latest Contact Info)Tvosbajqhpf24/19/2026 8:30 AM ESTProcedure Visit [facility] Connie OBGYJessica [address] [facility] [place] [address] Edy Marcum DO [address] [facility] [place] [address] documented as of this encounter Visit Diagnoses Not on filedocumented in this encounter Care Teams Team MemberRelationshipSpecialtyStart DateEnd Josr Martinez MD [address] [facility], [facility] [address] [place] [phone] PCP - GeneralFamassachusetts eye & ear [facility]irmary Medicine11/08/24documented as of this encounter
--- OUTSIDE RECORDS SUMMARY | 2025-06-11 13:56 | XMS_ITS | Clinical Summary ---
Author Organization [facility] Address [address] [place] [address] Care Team Providers Care Traffic Checker Name Role Phone Mecca Leone MD Primary Care Provider [phone] Allergies No known active allergies Medications MedicationSigDispense QuantityRefillsLast FilledStart DateEnd DateStatus magnesium oxide (Mag-Ox) 400 MG tablet Indications:Leg cramps in ([facility])Take 1 tablet (400 mg) by mouth Daily 30 tablet 6004/09/079260/ctive calcium carbonate (Os-Barry) 1250 (500 Ca) MG chewable tablet Chew 1 tablet DailyActive Encounters DateTypeDepartmentCare KizcYmqoedaivda74/24/2025 11:10 AM ESTRoutine [facility] Connie MACKEY [address] [place] [address] [place] [address] Ishaan Marcum, Third trimester ([facility]); 38 weeks gestation of ([facility])06/09/2025amboo flowsheet NOMLatisha MACKEY [address] [place] [address] [place] [address] Ishaan Marcum DO 06/04/2025 3:20 PM ESTRoutine LAISHA Hou [facility] [address] Lissa Steward PA 37 weeks gestation of ([facility]); Third trimester ([facility]); induced hypertension, antepartum ([facility])06/04/2025linisync Result Encounter NOMS External Department Unsolicited Jossue, Ishaan, DO 06/04/2025linisync Result Encounter NOMS External Department Unsolicited Ishaan Marcum, DO 06/04/2025amboo flowsheet [facility] [place] [facility] [address] [address] Lissa Steward PA 05/29/20254130Nrcria14/10/2025 4:00 PM ESTRoutine [facility] [address] [place] [address] Lissa Steward PA Third trimester ([facility]); 36 weeks gestation of ([facility])05/26/2025linisync Result Encounter NOMS External Department Unsolicited Lissa Steward PA 05/26/2025amboo flowsheet [facility] [address] [place] [address] Lissa Steward PA 05/25/20257231Xolyfd13/04/2025 8:50 AM ESTRoutine [facility] [address] [place] [address] Lissa Steward PA Third trimester ([facility]); 35 weeks gestation of ([facility])05/20/2025amboo flowsheet [facility] [place] [facility] [address] [address] Lissa Steward PA 05/13/20256398Nuwqjw78/20/2025 8:40 AM EDTRoutine [facility] [place] [facility] [address] [address] Ishaan Marcum DO 33 weeks gestation of ([facility]); Third trimester ([facility]); Leg cramps in ([facility])05/05/2025amboo flowsheet [facility] [place] [facility] [address] [address] Ishaan Marcum, DO 5Clinisync Result Encounter NOMS External Department Unsolicited Ishaan Marcum, DO 04/30/2025Telephone [facility] Connie MACKEY [address] [place] [address] Ishaan Marcum, DO 04/28/20255877Trlzit29/08/2025 3:10 PM EDTRoutine [facility] Connie Hou [facility] [place] [address] Cristin [place], CELIO Third trimester ([facility]); 30 weeks gestation of ([facility])04/23/2025amboo flowsheet [facility] Connie Hou [facility] [facility] [place] [address] Cristin [place], CELIO 04/16/20256548Hiedwu61/24/2025 3:50 PM EDTRoutine [facility] Connie Hou [facility] [place] [address] Ishaan Marcum, DO Third trimester ([facility]); 29 weeks gestation of ([facility]); Leg cramps in ([facility])04/09/2025 3:00 PM EDTAncillary Procedure [facility] Connie MACKEY [address] [place] [address] Size of fetus inconsistent with dates in second trimester ([facility])04/02/2025 Enscre905Clinisync Result Encounter NOMS External Department Unsolicited Lissa Steward PA 03/11/2025 3:00 PM EDTRoutine [facility] Connie Hou [facility] [facility] [place] [address] Lissa Steward PA Size of fetus inconsistent with dates in second trimester ([facility]) (Primary Dx); Diabetes mellitus screening; Second trimester ([facility]); 25 weeks gestation of ([facility])03/11/2025amboo flowsheet [facility] Connie MACKEY [address] [place] [address] Lissa Steward PA from Last 3 Months Family History Medical HistoryRelationNameCommentsHypertensionFatherMarkDiabetesMaternal GrandfatherDavidMigrainesMotherChristinaDiabetesPaternal GrandfatherArthurHeart failurePaternal GrandfatherArthurHypertensionPaternal GrandfatherArthurRelation NameStatusCommentsFatherMarkAliveMaternal GrandfatherDavidAliveMotherChristina AlivePaternal GrandfatherArthurAlive Social History Tobacco UseTypesPacks/DayYears UsedDateSmoking Tobacco: NeverSmokeless Tobacco: Current Tobacco Cessation:Ready to Q uit: Not Asked; Counseling Given: Not Answered Comments:Vape Alcohol UseStandard Drinks/WeekCommentsNot Currently0 (1 standard drink = 0.6 oz pure alcohol)Estimated Date of EnmzbsaaUhdlajquXae58/07/2025Based on UltrasoundSex and Gender InformationValueDate RecordedSex Assigned at BirthNot on fileLegal YvoYmkyss83/07/2024 2:18 PM EDTGender IdentityNot on fileSexual OrientationNot on file Last Filed Vital Signs Vital SignReadingTime TakenCommentsBlood Vhnuckhs786/7006/09/2025 11:37 AM EST Pulse--Temperature--Respiratory Rate--Oxygen Saturation--Inhaled Oxygen Concentration--Elpqbc89.6 kg (182 lb)06/09/2025 11:37 AM NYRXnjolv111.9 cm (5' 1 )11/08/2024 10:59 AM EDTBody Mass Index34.39011/08/2024 10:59 AM EDT Plan of Treatment DateTypeDepartmentCare Team (Latest Contact Info)Fkjxanbxrmd97/19/2026 8:30 AM ESTProcedure Visit [facility] Connie MACKEY [address] [place] [address] Ishaan Marcum DO [address] [place], [place] [address] Procedures Procedure NamePriorityDate/TimeAssociated DiagnosisCommentsPOCT URINALYSIS CRYPZPMYQfqshyw85/24/2025 11:37 AM EST 38 weeks gestation of ([facility]) US OB BPP W NON-AAANEA0906/04/2025 11:42 PM EST CCF HDLPBzmmbwf66/19/2025 4:53 PM EST SRMCOH PROTHROMBIN TIME INR W/O GPXLAxeybkd03/19/2025 4:53 PM EST ALL CBC WITH AUTO KWXVNpuwkcd57/19/2025 4:53 PM EST ALL TJBAkecdtx95/19/2025 4:53 PM EST CCF WDUEpxursx69/19/2025 4:53 PM EST CCF OLWUkpftcd62/19/2025 4:53 PM EST ALL URIC MJHFWlxdhnd27/19/2025 4:53 PM EST TBH IJJXCBCWKMZozveaf83/19/2025 4:53 PM EST ALL RDIKannctn50/19/2025 4:53 PM EST TBH URINE T PROTEIN CREAT OVYSDViaatef60/19/2025 4:35 PM EST POCT URINALYSIS FJUQLWMVPujacvo11/19/2025 3:33 PM EST 37 weeks gestation of ([facility]) Third trimester ([facility]) POCT URINALYSIS PLHLCEUGEzlxxrf95/10/2025 4:19 PM EST 36 weeks gestation of ([facility]) STREP GP B YGMKvygssh32/10/2025 4:00 PM EST POCT URINALYSIS VYRIMOGCLmzuzsh72/04/2025 9:05 AM EST 35 weeks gestation of ([facility]) POCT URINALYSIS QUYEWYUMMpzcpfn33/20/2025 8:46 AM EDT 33 weeks gestation of ([facility]) Third trimester ([facility]) CCF HJDNxqgwga88/15/2025 11:12 AM EDT CCF LOSTmiqrfa46/15/2025 11:12 AM EDT ALL URIC PKHVQgmmwdz03/15/2025 11:12 AM EDT TBH NGBVDABZDIVsalylo43/15/2025 11:12 AM EDT ALL KTXYkvdzxb43/15/2025 11:12 AM EDT ALL CBC WITH AUTO MCVHXjvbnma75/15/2025 11:12 AM EDT MHPT HZFVEMXLVJPlvktee21/15/2025 11:12 AM EDT CCF GCRYSxsfjkv62/15/2025 11:12 AM EDT SRMCOH PROTHROMBIN TIME INR W/O MYLJTpgxzjm68/15/2025 11:12 AM EDT TBH URINE T PROTEIN CREAT AHPRABoimvkk31/15/2025 10:40 AM EDT POCT URINALYSIS JESSFQNFMsnysxn99/08/2025 3:24 PM EDT Third trimester ([facility]) POCT URINALYSIS BLDJDSCYUzipeqa76/24/2025 3:39 PM EDT Third trimester ([facility]) US OB FOLLOW UP TRANSABDOMINAL RUAGMPCQOknzzen53/24/2025 3:15 PM EDT Size of fetus inconsistent with dates in second trimester ([facility]) GLUCOSE 1 OPVMAfbtnrx38/29/2025 9:13 AM EDT ALL CBC WITH AUTO NIWONefgqrn52/29/2025 9:13 AM EDT POCT URINALYSIS KCJYOXOZRqlwwgs71/26/2025 3:19 PM EDT Second trimester ([facility]) from Last 3 Months Results * POCT urinalysis dipstick manually resulted (06/09/2025 11:37 AM EST) Only the most recent of8 resultswithin the time period is included. ComponentValueRef [...] Location / LateralityCollection Method / VolumeCollection TimeReceived JpelPmxtk39/24/2025 11:37 AM EST Narrative Authorizing ProviderResult TypeResult StatusCorey Jossue DOPOINT OF CARE TEST ENTER/EDIT ORDERABLESFinal Result * US OB BPP W NON-STRESS (06/04/2025 11:42 PM EST)Anatomical Region LateralityModalityOtherSpecimen (Source)Anatomical Location / Laterality Collection Method / VolumeCollection TimeReceived Time06/04/2025 11:42 PM EST Narrative 06/04/2025 11:44 PM EST [facility] ?[address] ? [place] [address] ? Ultrasound Report ? Signed ? Patient: SHEFALI,CHRIST L ?MR#: [id number] ?? : 2000 ?Acct:[id number] ?? Age/Sex: 25 / F ?ADM Date: ?? Loc: [facility] ??253-1 ? Attending Dr: Ishaan Marcum D.O. ? Ordering Physician: Ishaan Marcum D.O. ?? Date of Service: 06/04/25 ?? Procedure(s): US OB BPP w non-stress ?? Accession Number(s): [id number] ? cc: Ishaan Marcum D.O.; MECCA LEONE ? [facility] ? [address] ? [place] [address] ? Patient Name: ?? CHRIST MEEHAN ? MRN: [facility]:[id number] ? date: 2000 ?Sex: F ?? Assigned Patient Location: [facility] ?? Current Patient Location: FB ?? Accession/Order Number: [id number] ?? Exam Date: 06/04/2025 ??17:30 ?Report Date: [...] M.D. ??06/04/2025 11:42 PM ? Dictation Location: [facility]--20 ? Electronically authenticated by: [id number] ??Y ?? Date: 06/04/2025 ??23:42 ? Dictated By: ?Giovanny Bejarano D.O. ? Signed By: ?06/04/25 2344 ? DD/ 41 ? TD/TT: ? Beauty Parlor Cleaner: Procedure Note Radiology, Radiologist, MD - 06/05/[address] [address] Ultrasound Report Signed Patient: CHRIST MEEHAN LMR#: [id number] : 2000Acct:[id number] Age/Sex: 25 / FADM Date: Loc: [facility] 253-[address]: Ishaan Marcum D.O. Ordering Physician: Ishaan Marcum D.O. Date of Service: 06/04/25 Procedure(s): US OB BPP w non-stress Accession Number(s): [id number] cc: Ishaan Marcum D.O.; MECCA LEONE [place] [address] Patient Name: CHRIST MEEHAN MRN: [facility]:[id number] date: 2000 Sex: F Assigned Patient Location: [facility] Current Patient Location: [facility] Accession/Order Number: [id number] Exam Date: 06/04/2025 17:30 Report Date: 06/04/2025 [...] Bejarano M.D. 06/04/2025 11:42 PM Dictation Location: [place] [address] Electronically authenticated by: [id number] Y Date: 3:42 Dictated By: Giovanny Bejarano D.O. Signed By:06/04/254 DD/ 41 TD/TT: Beauty Parlor Cleaner: Authorizing ProviderResult TypeResult StatusCorey Jossue DOCLINISYNC IMAGINGFinal Result * TBH CREATININE (06/04/2025 4:53 PM EST) Only the most recent of2 resultswithin the time period is included. ComponentValueRef RangeTest MethodAnalysis TimePerformed AtPathologist Signature CREATININE0.690.55 - 1.02 mg/dLTBHTBH EGFR-AF CITIZ[place]>60>=60 mL/min/1.73m 2TBH TBH EGFR-NON AF CITIZEN [place]>60>=60 mL/min/1.73m 2TBHSpecimen (Source)Anatomical Location / LateralityCollection Method / VolumeCollection TimeReceived Time 06/04/2025 4:53 PM EST06/04/2025 4:58 PM EST Narrative CLINISYNC - 06/04/2025 5:14 PM EST Authorizing ProviderResult TypeResult StatusCorey Jossue DOCLINISYNCFinal Result Performing OrganizationAddressCity/State/ZIP CodePhone Number [facility]ACE [facility] * SRMCOH PROTHROMBIN TIME INR W/O COUM [...] Jossue DOCLINISYNCFinal Result Performing OrganizationAddressCity/State/ZIP CodePhone Number [facility] * CCF AST (06/04/2025 4:53 PM EST) Only the most recent of2 resultswithin the time period is included. ComponentValueRef RangeTest MethodAnalysis TimePerformed AtPathologist Signature ASPARTATE AMINO BFQIRTCVNOG4887 - 37 U/LTBHSpecimen (Source)Anatomical Location / LateralityCollection Method / VolumeCollection TimeReceived Time06/04/2025 4:53 PM EST06/04/2025 4:58 PM EST Narrative CLINISYNC - 06/04/2025 5:14 PM EST Authorizing ProviderResult TypeResult StatusCorey Jossue DOCLINISYNCFinal Result Performing OrganizationAddLifecare Hospital of Chester Countyty/State/ZIP CodePhone Number [facility] * CCF APTT (06/04/2025 4:53 PM EST) [...] OrganizationAddressCity/State/ZIP CodePhone Number CLINISYNC TBH * CCF ALT (06/04/2025 4:53 PM EST) Only the most recent of2 resultswithin the time period is included. ComponentValueRef RangeTest MethodAnalysis TimePerformed AtPathologist Signature ALANINE LQUQOKZHJUETVZKO0468 - 59 U/LTBHSpecimen (Source)Anatomical Location / LateralityCollection [...] CodePhone Number CLINISYNC TBH * (ABNORMAL) ALL LDH (06/04/2025 4:53 PM EST)ComponentValueRef RangeTest Method Analysis TimePerformed AtPathologist SignatureLACTATE ASUIICHUVDKVM391(H)81 - 234 U/LTBHSpecimen (Source)Anatomical Location / LateralityCollection Method / VolumeCollection TimeReceived Time06/04/2025 4:53 PM EST06/04/2025 4:58 PM EST Narrative CLINISYNC - 06/04/2025 5:14 PM EST Authorizing ProviderResult TypeResult StatusCorey Jsosue DOCLINISYNCFinal Result Performing OrganizationAddressCity/State/ZIP CodePhone Number CLINISYNC TB * (ABNORMAL) ALL CBC WITH AUTO DIFF [...] - 35.2 g/dLTBHTBH RDW12.111.0 - 15.0 %TBHTBH [id number] - 450 10 3/uLTBHTBH MPV10.79.5 - 13.5 [...] Jossue DOCLINISYNCFinal Result Performing OrganizationAddressCity/State/ZIP CodePhone Number VERITOISYHI TB * (ABNORMAL) ALL BUN (06/04/2025 4:53 PM [...] Signature TOTAL PROTEIN URINE RANDOM<6.0<=11.9 mg/dLTBHCREATININE URINE RSMWAF35.1420.00 - 300.00 mg/dLTBHSpecimen (Source)Anatomical Location / LateralityCollection Method / VolumeCollection TimeReceived Time06/04/2025 4:35 PM EST06/04/2025 4:58 PM EST Narrative CLINISYNC - 06/04/2025 5:12 PM EST Authorizing ProviderResult TypeResult StatusCorey Jossue DOCLINISYNCFinal Result Performing OrganizationAddressCity/State/ZIP CodePhone Number TRACE TBH * STREP GP B CHERYL (05/26/2025 4:00 [...] noted.TBHSTREP GP B NAAPerformed at: - [facility] LavelleTBHSTREP GP B [id number] [place], [place] [id number] STREP GP B NAALab Director: Kaden Merino PhD, Phone: [phone] (Source)Anatomical Location / LateralityCollection Method / VolumeCollection TimeReceived Time05/26/2025 4:00 PM EST05/26/2025 9:24 PM EST Narrative CLINISYNC - 05/29/2025 1:09 PM EST Authorizing ProviderResult TypeResult StatusAmy Bin PALAB BLOOD ORDERABLES Final ResultPerforming OrganizationAddressCity/State/ZIP CodePhone Number TRACE [facility] * (ABNORMAL) MHPT FIBRINOGEN (04/30/2025 11:12 AM EDT)ComponentValueRef Range Test MethodAnalysis TimePerformed AtPathologist PnrybyhcjACTTSPNDEL219(H)200 - 400 mg/dLTBHSpecimen (Source)Anatomical Location / LateralityCollection Method / VolumeCollection TimeReceived Time04/30/2025 11:12 AM EDT1 11:20 AM EDT Narrative LEEANNANC - 04/30/2025 12:12 PM EDT Authorizing ProviderResult TypeResult StatusCorey Jossue DOCLINISYNCFinal Result Performing OrganizationAddressCity/State/ZIP CodePhone Number TRACE [facility] * US OB follow up transabdominal approach [...] Peraza MD Authorizing ProviderResult TypeResult StatusAmy Bin PAIMG OB US PROCEDURES Final Result * GLUCOSE 1 HOUR (03/14/2025 9:13 AM EDT)ComponentValueRef RangeTest Method Analysis TimePerformed AtPathologist SignatureGLUCOSE 1 IXAP671<130 mg/dLTBH Specimen (Source)Anatomical Location / LateralityCollection Method / Volume Collection TimeReceived Time03/14/2025 9:13 AM EDT03/14/2025 9:20 AM EDT Narrative CLINISYNC - 03/14/2025 11:40 AM EDT Authorizing ProviderResult TypeResult StatusAmy Bin PALAB BLOOD ORDERABLES Final ResultPerforming OrganizationAddressCity/State/ZIP CodePhone Number CLINISYNC TB from Last 3 Months Insurance Care Teams Team MemberRelationshipSpecialtyStart DateEnd Mecca Leone MD [address] [facility], [address] [place] [id number] PCP - GeneralFamily Medicine11/08/24
--- OUTSIDE RECORDS SUMMARY | 2025-06-11 13:56 | XMS_ITS | Clinical Summary ---
Author Organization [facility] Address [address] [place] [address] Phone Care Team Providers Care Maintenance Engineer Oil Field Name Role Phone Josr Martinez PA-C Primary Care Provider [phone] Allergies No known active allergies Medications MedicationSigDispense [...] Additional Information Patient not taking.Reported on 11/19/2024 7-MLQA-JUFVI ACID-OM3 ORAL Take by mouth.Active Active Problems ProblemNoted DateDiagnosed DateLow blood sugar03/21/2023Low vitamin B12 level 03/21/2023Vitamin D ncorghqbiyxkd11/05/2023Elevated zvgnpluda96/05/2023 Qpzfgrbnxiwot12/05/2023remenstrual qcuaaczm57/05/2023remenstrual syndrome 03/21/2023eneralized anxiety gnrxnnyp38/14/2023 Family History Medical HistoryRelationNameCommentsHypertensionFatherDiabetesMaternal GrandfatherAlzheimer's diseaseMaternal GrandmotherDiabetesPaternal Grandfather Heart diseasePaternal GrandfatherRelationNameStatusCommentsFatherMaternal GrandfatherMaternal GrandmotherPaternal Grandfather Social History Tobacco UseTypesPacks/DayYears UsedDateSmoking Tobacco: NeverSmokeless Tobacco: Never Tobacco Cessation:Counseling Given: Not Answered PHQ-2AnswerDate RecordedPatient Health Questionnaire-2 Piqtf542 CommentsUnknownSex and Gender InformationValueDate RecordedSex Assigned at Ksompf8401/09/2024 2:41 PM EDTLegal RnmArorbq68/25/2022 10:21 PM ESTGender NkdltmmdElwxog67/25/2024 2:41 PM EDTSexual OrientationNot on file Last Filed Vital Signs Vital SignReadingTime TakenCommentsBlood Sylzzixb629/78011/19/2024 7:27 AM EDT Mglqv156511/19/2024 7:27 AM HTRSejlytsufgc79.6 ??C (97.8 ??F)09/18/2024 3:27 PM ESTRespiratory Yhdn196409/18/2024 3:27 PM ESTOxygen Zefbvqopcu08%11/19/2024 7:27 AM EDTInhaled Oxygen Concentration--Vynnvw78.3 kg (144 lb)11/19/2024 7:27 AM EDT Eajaij537.8 cm (5' 2.5 )11/19/2024 7:27 AM EDTBody Mass Index25.9211/19/2024 7:27 AM EDT Plan of Treatment DateTypeDepartmentCare Team (Latest Contact Info)Itylocrdlfy27/07/2026 8:00 AM EDTOffice Visit [facility] [address] [place] [address] Josr Martinez PA-C [address] [facility], [address] [place] [address] Health MaintenanceDue DateLast DoneCommentsHIV Hvxmclrdl1998Lipid Panel 1998MMR Vaccines (1 of 1 - Standard series)1999Hepatitis C Screening 01/24/2016Hepatitis B Vaccines (1 of 3 - 19+ 3-dose series)2017HPV/Cotest 2019DTaP/Tdap/Td Vaccines (1 - Tdap)01/24/2020HPV Vaccines (1 - 3-dose standard series)2025Influenza Vaccine (#1)5COVID-19 Vaccine (1 - season)5Yearly Adult Xtpjyqip20/26/09181708/10/2023, 07/27/2022, 09/25/2020ervical Cancer Dwwoedilp82/25/2027Pap Smear7108/10/2023, 07/29/2021Zoster Vaccines (1 of 2)01/24/2048HIB VaccinesAged [...] Type:Not on file Address: [address] Care Teams Team MemberRelationshipSpecialtyStart DateEnd Josr Moran PA-C [address] [facility], [place] [address] PCP - GeneralFamily Medicine11/24/23
--- OUTSIDE RECORDS SUMMARY | 2025-06-11 13:56 | XMS_ITS | Encounter Summary ---
Author Organization [facility] Address [address] [facility] [place] [address] Care Team Providers Care Jig Bore Tool Maker Name Role Phone Josr Martinez MD Primary Care Provider [phone] Encounter Details DateTypeDepartmentCare Team (Latest Contact Info)Bzkbudybdfd95/19/2025amboo flowsheet LAISHA MACKEY [address] [place] [address] [place] [address] Lissa Steward PA [address] [facility] [address] [place], [place] [address] Social History Tobacco UseTypesPacks/DayYears UsedDateSmoking Tobacco: NeverSmokeless Tobacco: Current Comments:Vape Alcohol UseStandard Drinks/WeekCommentsNot Currently0 (1 standard drink = 0.6 oz pure alcohol)Estimated Date of KyjpnahnRiocitijRqf06/07/2025Based on UltrasoundSex and Gender InformationValueDate RecordedSex Assigned at BirthNot on fileLegal FqnNjzuao65/07/2024 2:18 PM EDTGender IdentityNot on fileSexual OrientationNot on filedocumented as of this encounter Plan of Treatment DateTypeDepartmentCare Team (Latest Contact Info)Roajfbisoml52/19/2026 8:30 AM ESTProcedure Visit NOMLatisha MACKEY [address] [place] [address] [place] [address] Edy Marcum DO [address] [facility] [address] [place], [facility]11 documented as of this encounter Visit Diagnoses Not on filedocumented in this encounter Care Teams Team MemberRelationshipSpecialtyStart DateEnd Date Josr Martinez MD [address] [facility], [facility] [address] [place] [address] PCP - GeneralFamily Medicine11/08/24documented as of this encounter
--- OUTSIDE RECORDS SUMMARY | 2025-06-11 13:56 | XMS_ITS | Encounter Summary ---
Author Organization [facility] Address [address] [place] [address] Care Team Providers Care Engineering Inspector Name Role Phone Josr Martinez MD Primary Care Provider [phone] Encounter Details DateTypeDepartmentCare Team (Latest Contact Info)Fhdmhcyigfq69/19/2025linisync Result Encounter [facility] External Department Unsolicited Edy Marcum, DO [address], [facility]11 Social History Tobacco UseTypesPacks/DayYears UsedDateSmoking Tobacco: NeverSmokeless Tobacco: Current Comments:Vape Alcohol UseStandard Drinks/WeekCommentsNot Currently0 (1 standard drink = 0.6 oz pure alcohol)Estimated Date of JkkosdvnArbdaymvTbi05/07/2025Based on UltrasoundSex and Gender InformationValueDate RecordedSex Assigned at BirthNot on fileLegal FltWgxtcl94/07/2024 2:18 PM EDTGender IdentityNot on fileSexual OrientationNot on filedocumented as of this encounter Plan of Treatment DateTypeDepartmentCare Team (Latest Contact Info)Oddelrfgryw42/19/2026 8:30 AM ESTProcedure Visit [facility] Connie OBGYJessica [address] [facility] [place] [address] Edy Marcum DO [address] [place] [address] documented as of this encounter Procedures Procedure NamePriorityDate/TimeAssociated DiagnosisCommentsTBH CREATININERoutine 06/04/2025 4:53 PM EST SRMCOH PROTHROMBIN TIME INR W/O TYCXJdfnzfd37/19/2025 4:53 PM EST CCF WDMTmgwtuf89/19/2025 4:53 PM EST CCF TYJUOnzqmsd38/19/2025 4:53 PM EST CCF WWPVkqkzgk74/19/2025 4:53 PM EST ALL URIC BQTAAjqklyc24/19/2025 4:53 PM EST ALL PODMvxkjef68/19/2025 4:53 PM EST ALL CBC WITH AUTO PCHXJampxqo94/19/2025 4:53 PM EST ALL ROWUavmtun34/19/2025 4:53 PM EST TBH URINE T PROTEIN CREAT OHMEZWuwpyis16/19/2025 4:35 PM EST documented in this encounter Results * CCF APTT (06/04/2025 4:53 PM EST)ComponentValueRef RangeTest MethodAnalysis TimePerformed AtPathologist SignaturePARTIAL THROMBOPLASTIN TIME23.822.3 - 36.2 secTBHSpecimen (Source)Anatomical Location / LateralityCollection Method / VolumeCollection TimeReceived Time06/04/2025 4:53 PM EST06/04/2025 4:58 PM EST Narrative CLINISYNC - 06/04/2025 5:16 PM EST Authorizing ProviderResult TypeResult StatusCorey Jossue DOCLINISYNCFinal Result Performing OrganizationAddressCity/State/ZIP CodePhone Number CLINISYNC TB * SRMCOH PROTHROMBIN TIME INR W/O COUM [...] Jossue DOCLINISYNCFinal Result Performing OrganizationAddressCity/State/ZIP CodePhone Number [facility] * (ABNORMAL) ALL CBC WITH AUTO DIFF (06/04/2025 4:53 PM EST)ComponentValueRef RangeTest MethodAnalysis TimePerformed AtPathologist SignatureTBH WBC11.2(H) 4.0 - 11.0 10 3/uLTBHTBH RBC3.78(L)4.20 - 5.40 10 6/uLTBHTBH HGB10.8(L)12.0 - 16.0 g/dLTBHTBH HCT32.8(L)36.0 - 48.0 %TBHTBH MCV86.881.0 - 99.0 fLTBHTBH MCH 28.626.7 - 34.0 pgTBHTBH MCHC32.929.9 - 35.2 g/dLTBHTBH RDW12.111.0 - 15.0 % TBHTBH NLU467600 - 450 10 3/uLTBHTBH MPV10.79.5 - 13.5 [...] Jossue DOCLINISYNCFinal Result Performing OrganizationAddressCity/State/ZIP CodePhone Number [facility] * (ABNORMAL) ALL LDH (06/04/2025 4:53 PM EST)ComponentValueRef RangeTest Method Analysis TimePerformed AtPathologist SignatureLACTATE PWKTHYRNECVDV945(H)81 - 234 U/LTBHSpecimen (Source)Anatomical Location / LateralityCollection Method / VolumeCollection TimeReceived Time06/04/2025 4:53 PM EST06/04/2025 4:58 PM EST Narrative CLINISYNC - 06/04/2025 5:14 PM EST Authorizing ProviderResult TypeResult StatusCorey Jossue DOCLINISYNCFinal Result Performing OrganizationAddressCity/State/ZIP CodePhone Number [facility] * CCF ALT (06/04/2025 4:53 PM EST)ComponentValueRef RangeTest MethodAnalysis TimePerformed AtPathologist SignatureALANINE VMGETPDSNDKTKTLT9858 - 59 U/LTBH Specimen (Source)Anatomical Location / LateralityCollection Method / Volume Collection TimeReceived Time06/04/2025 4:53 PM EST06/04/2025 4:58 PM EST Narrative CLINISYNC - 06/04/2025 5:14 PM EST Authorizing ProviderResult TypeResult StatusCorey Jossue DOCLINISYNCFinal Result Performing OrganizationAddressCity/State/ZIP CodePhone Number [facility] * CCF AST (06/04/2025 4:53 PM EST)ComponentValueRef RangeTest MethodAnalysis TimePerformed AtPathologist SignatureASPARTATE AMINO BCAHFVEAWMO6643 - 37 U/L TBHSpecimen (Source)Anatomical Location / [...] DOCLINISYNCFinal Result Performing OrganizationAddressty/State/ZIP CodePhone Number CLINISYNC TB * TBH CREATININE (06/04/2025 4:53 PM EST)ComponentValueRef RangeTest Method Analysis TimePerformed AtPathologist SignatureCREATININE0.690.55 - 1.02 mg/dL TBHTBH EGFR-AF BHUTANESE>60>=60 mL/min/1.73m 2TBHTBH EGFR-NON AF BHUTANESE>60 >=60 mL/min/1.73m 2TBHSpecimen (Source)Anatomical Location / Laterality [...] AtPathologist SignatureTOTAL PROTEIN URINE RANDOM<6.0<=11.9 mg/dLTBHCREATININE URINE POFWYJ00.1420.00 - 300.00 mg/dLTBHSpecimen (Source)Anatomical Location / LateralityCollection Method / VolumeCollection TimeReceived Time06/04/2025 4:35 PM EST06/04/2025 4:58 PM EST Narrative CLINISYNC - 06/04/2025 5:12 PM EST Authorizing ProviderResult TypeResult StatusCorey Jossue DOCLINISYNCFinal Result Performing OrganizationAddressCity/State/ZIP CodePhone Number CLINISYNC TBH documented in this encounter Visit Diagnoses Not on filedocumented in this encounter Care Teams Team MemberRelationshipSpecialtyStart DateEnd Josr Martinez MD [address] [facility], [facility] [address] [place] [address] PCP - GeneralFamily Medicine11/08/24documented as of this encounter
--- OUTSIDE RECORDS SUMMARY | 2025-06-11 13:56 | XMS_ITS | Encounter Summary ---
Author Organization [facility] Address [address] [facility] [place] [address] Care Team Providers Care Forest Products Gatherer Name Role Phone Josr Martinez MD Primary Care Provider [phone] Encounter Details DateTypeDepartmentCare Team (Latest Contact Info)Zbjmbmvyxka64/24/2025Bamboo flowsheet LAISHA MACKEY [address] [place] [address] [place] [address] Edy Marcum DO [address] [place] [address] Dr [address], [place] [address] Social History Tobacco UseTypesPacks/DayYears UsedDateSmoking Tobacco: NeverSmokeless Tobacco: Current Comments:Vape Alcohol UseStandard Drinks/WeekCommentsNot Currently0 (1 standard drink = 0.6 oz pure alcohol)Estimated Date of EfaufkshSmpqbrwdAua70/07/2025Based on UltrasoundSex and Gender InformationValueDate RecordedSex Assigned at BirthNot on fileLegal LdiTqwkuy59/07/2024 2:18 PM EDTGender IdentityNot on fileSexual OrientationNot on filedocumented as of this encounter Plan of Treatment DateTypeDepartmentCare Team (Latest Contact Info)Uiyajqovshs35/19/2026 8:30 AM ESTProcedure Visit LAISHA MACKEY [address] [place] [address] [place] [address] Edy Marcum DO [address] [place] [address] [address], [facility]11 documented as of this encounter Visit Diagnoses Not on filedocumented in this encounter Care Teams Team MemberRelationshipSpecialtyStart DateEnd Date Josr Martinez MD [address] [facility], [place] [address] PCP - GeneralFamily Medicine11/08/24documented as of this encounter
[2025-06-11 14:24] VITALS: BP 121/80; PULSE 70
== END 2025-06-11 15:08 | disposition home or self-care (01) ==
LOC: US 13:53 → FBC 13:58
PROVIDERS: Visit Provider Obstetrics & Gynecology
DX: O13.3 Gestational [pregnancy-induced] hypertension without significant proteinuria, third trimester (principal); Z3A.37 37 weeks gestation of pregnancy
CPT/HCPCS: 76818

== ENCOUNTER 2025-06-14 10:27 | Outpatient (OUT) | payer BC, SELFPAY ==
--- OUTSIDE RECORDS SUMMARY | 2025-06-04 15:20 | XMS_ITS | Encounter Summary ---
Author Organization [facility] Address [address] [place] [address] Care Team Providers Care Photovoltaic Installation Technician Name Role Phone Josr Martinez MD Primary Care Provider Reason for Visit * ReasonCommentsRoutine Visit Encounter Details DateTypeDepartmentCare Team (Latest Contact Info)Mwzlmycqjkb02/19/2025 3:20 PM ESTRoutine [facility] Connie OBGYJessica [address] [place] [phone] Lisas Steward PA [address] [facility] [address] [place], [facility]11 37 weeks gestation of ([facility]); Third trimester ([facility]); induced hypertension, antepartum ([facility]) Social History Tobacco UseTypesPacks/DayYears UsedDateSmoking Tobacco: NeverSmokeless Tobacco: Current Comments:Vape Alcohol UseStandard Drinks/WeekCommentsNot Currently0 (1 standard drink = 0.6 oz pure alcohol)Estimated Date of IyzqthhpOlmfbbmfTgw84/07/2025Based on UltrasoundSex and Gender InformationValueDate RecordedSex Assigned at BirthNot on fileLegal EltYjcsfw45/07/2024 2:18 PM EDTGender IdentityNot on fileSexual OrientationNot on filedocumented as of this encounter Last Filed Vital Signs Vital SignReadingTime TakenCommentsBlood Hkkesuzz007/9211/ 3:42 PM EST 138/90Pulse--Temperature--Respiratory Rate--Oxygen Saturation--Inhaled Oxygen Concentration--Hyjytw83 kg (183 lb)06/04/2025 3:42 PM ESTHeight--Body Mass [...] nursing note reviewed. Exam conducted with a senior site manager present. Vitals: Estimated body mass index is 34.6 kg/m?? as calculated from the following: Height as of 11/08/24: 5' 1 . Weight as of 05/26/25: 183 lb 1.9 oz. BP: Patient's last menstrual period was 09/06/2024. Assessment/Plan ICD-10-CM 1. 37 weeks gestation of ([facility]) Z3A.37 POCT urinalysis dipstick manually resulted US biophysical profile w non stress test Protein / creatinine ratio, urine Protein / creatinine ratio, urine 2. Third trimester ([facility]) Z34.93 POCT urinalysis dipstick manually resulted US biophysical profile w non stress test Protein / creatinine ratio, urine Protein / creatinine ratio, urine 3. induced hypertension, antepartum ([facility]) O13.9 US biophysical profile w non stress [...] Plan of Treatment DateTypeDepartmentCare Team (Latest Contact Info)Jlurxfntzty88/19/2026 8:30 AM ESTProcedure Visit [facility] Connie MACKEY [address] [place] [address] JossueEdy meza DO [address] [facility] [place] [address] NameTypePriorityAssociated DiagnosesOrder ScheduleUS biophysical profile w non [...] this encounter Procedures Procedure NamePriorityDate/TimeAssociated DiagnosisCommentsPOCT URINALYSIS EIZLMSAYRxocwcz93/19/2025 3:33 PM EST 37 weeks gestation of [...] / LateralityCollection Method / VolumeCollection Time Received QvaoMuibv52/19/2025 3:33 PM EST Narrative Authorizing ProviderResult TypeResult StatusSent[facility] TEST ENTER/EDIT ORDERABLESFinal Result documented in this encounter Visit Diagnoses Diagnosis 37 weeks gestation of ([facility]) Third trimester ([facility]) state, incidental induced hypertension, antepartum ([facility]) Transient hypertension of , antepartum documented in this encounter Care Teams Team MemberRelationshipSpecialtyStart DateEnd Date Josr Martinez MD [address] [facility], [facility] [address] [place] [phone] PCP - GeneralFamily Medicine11/08/24documented as of this encounter
--- OUTSIDE RECORDS SUMMARY | 2025-06-09 11:10 | XMS_ITS | Encounter Summary ---
Author Organization [facility] Address [address] [facility] [place] [address] Care Team Providers Care Securities Trader Name Role Phone Josr Martinez MD Primary Care Provider [phone] Reason for Visit * ReasonCommentsRoutine Visit Encounter Details DateTypeDepartmentCare Team (Latest Contact Info)Dzfdwsydbez63/24/2025 11:10 AM ESTRoutine [facility] [address] [facility] [place] [phone] Edy Marcum DO [address] [facility] [address] [place] [id number] Third trimester ([facility]); 38 weeks gestation of ([facility]) Social History Tobacco UseTypesPacks/DayYears UsedDateSmoking Tobacco: NeverSmokeless Tobacco: Current Comments:Vape Alcohol UseStandard Drinks/WeekCommentsNot Currently0 (1 standard drink = 0.6 oz pure alcohol)Estimated Date of MwqbppzeGdbmjirnJxb54/07/2025Based on UltrasoundSex and Gender InformationValueDate RecordedSex Assigned at BirthNot on fileLegal UjrQvomar22/07/2024 2:18 PM EDTGender IdentityNot on fileSexual OrientationNot on filedocumented as of this encounter Last Filed Vital Signs Vital SignReadingTime TakenCommentsBlood Oxjdufyl098/7006/09/2025 11:37 AM EST Pulse--Temperature--Respiratory Rate--Oxygen Saturation--Inhaled Oxygen Concentration--Yuqfgi86.6 kg (182 lb)06/09/2025 11:37 AM ESTHeight--Body Mass [...] nursing note reviewed. Exam conducted with a manuscript reader present. Vitals: Estimated body mass index is 34.39 kg/m?? as calculated from the following: Height as of 11/08/24: 5' 1 . Weight as of this encounter: 182 lb. BP: 118/70 Patient's last menstrual period was 09/06/2024. Assessment/Plan ICD-10-CM 1. Third trimester ([facility]) Z34.93 2. 38 weeks gestation of ([facility]) Z3A.38 POCT urinalysis dipstick manually resulted Assessment/Plan [...] Plan of Treatment DateTypeDepartmentCare Team (Latest Contact Info)Iyzfsadafjp06/19/2026 8:30 AM ESTProcedure Visit [facility] [address] [facility] [address] Edy Marcum DO [address] [place], [place] [phone] documented as of this encounter Procedures Procedure NamePriorityDate/TimeAssociated DiagnosisCommentsPOCT URINALYSIS UMRPAEIBBsndsrb64/ 11:37 AM EST 38 weeks gestation of ([facility]) documented in this encounter Results * POCT [...] this encounter Visit Diagnoses Diagnosis Third trimester ([facility]) state, incidental 38 weeks gestation of ([facility]) documented in this encounter Care Teams Team MemberRelationshipSpecialtyStart DateEnd Date Josr Martinez MD [address] [facility], [facility] [address] [place] [address] PCP - GeneralFamily Medicine11/08/24documented as of this encounter
--- OUTSIDE RECORDS SUMMARY | 2025-06-14 10:31 | XMS_ITS | Encounter Summary ---
Author Organization [facility] Address [address] [facility] [place] [address] Care Team Providers Care Printer Maintainer Name Role Phone Josr Martinez MD Primary Care Provider [phone] Encounter Details DateTypeDepartmentCare Team (Latest Contact Info)Uljqadrtzkk59/19/2025linisync Result Encounter [facility]S External Department Unsolicited Edy Marcum, DO [address], [facility]11 Social History Tobacco UseTypesPacks/DayYears UsedDateSmoking Tobacco: NeverSmokeless Tobacco: Current Comments:Vape Alcohol UseStandard Drinks/WeekCommentsNot Currently0 (1 standard drink = 0.6 oz pure alcohol)Estimated Date of ZsnonzcrQmncbduvLlv45/07/2025Based on UltrasoundSex and Gender InformationValueDate RecordedSex Assigned at BirthNot on fileLegal LdgLmudaw56/07/2024 2:18 PM EDTGender IdentityNot on fileSexual OrientationNot on filedocumented as of this encounter Plan of Treatment DateTypeDepartmentCare Team (Latest Contact Info)Txcxxhykfol44/19/2026 8:30 AM ESTProcedure Visit [facility] Connie OBGYJessica [address] [facility] [place] [address] Edy Marcum DO [address] [place] [address] documented as of this encounter Procedures Procedure NamePriorityDate/TimeAssociated DiagnosisCommentsTBH CREATININERoutine 06/04/2025 4:53 PM EST SRMCOH PROTHROMBIN TIME INR W/O WYUGXwgzojk80/19/2025 4:53 PM EST CCF ERKCwivpxo74/19/2025 4:53 PM EST CCF YFJAJlyisxm67/19/2025 4:53 PM EST CCF SYUQxzyfsh35/19/2025 4:53 PM EST ALL URIC QGEXUyrlzty10/19/2025 4:53 PM EST ALL OUTQxdqcjv77/19/2025 4:53 PM EST ALL CBC WITH AUTO QAXCSlhoquq76/19/2025 4:53 PM EST ALL WMQIhhnojv16/19/2025 4:53 PM EST TBH URINE T PROTEIN CREAT NHKWHXwopzos51/19/2025 4:35 PM EST documented in this encounter [...] Jossue DOCLINISYNCFinal Result Performing OrganizationAddressCity/State/ZIP CodePhone Number [facility] * (ABNORMAL) ALL CBC WITH AUTO DIFF (06/04/2025 4:53 PM EST)ComponentValueRef RangeTest MethodAnalysis TimePerformed AtPathologist SignatureTBH WBC11.2(H) 4.0 - 11.0 10 3/uLTBHTBH RBC3.78(L)4.20 - 5.40 10 6/uLTBHTBH HGB10.8(L)12.0 - 16.0 g/dLTBHTBH HCT32.8(L)36.0 - 48.0 %TBHTBH MCV86.881.0 - 99.0 fLTBHTBH MCH 28.626.7 - 34.0 pgTBHTBH MCHC32.929.9 - 35.2 g/dLTBHTBH RDW12.111.0 - 15.0 % TBHTBH ZIW313412 - 450 10 3/uLTBHTBH MPV10.79.5 - 13.5 [...] Jossue DOCLINISYNCFinal Result Performing OrganizationAddressCity/State/ZIP CodePhone Number [facility] * (ABNORMAL) ALL LDH (06/04/2025 4:53 PM EST)ComponentValueRef RangeTest Method Analysis TimePerformed AtPathologist SignatureLACTATE JCGHFBGVOFYXM023(H)81 - 234 U/LTBHSpecimen (Source)Anatomical Location / LateralityCollection Method / VolumeCollection TimeReceived Time06/04/2025 4:53 PM EST06/04/2025 4:58 PM EST Narrative CLINISYNC - 06/04/2025 5:14 PM EST Authorizing ProviderResult TypeResult StatusCorey Jossue DOCLINISYNCFinal Result Performing OrganizationAddressCity/State/ZIP CodePhone Number [facility] * CCF ALT (06/04/2025 4:53 PM EST)ComponentValueRef RangeTest MethodAnalysis TimePerformed AtPathologist SignatureALANINE EWFEATYWHBETFRJQ5762 - 59 U/LTBH Specimen (Source)Anatomical Location / LateralityCollection Method / Volume Collection TimeReceived Time06/04/2025 4:53 PM EST06/04/2025 4:58 PM EST Narrative CLINISYNC - 06/04/2025 5:14 PM EST Authorizing ProviderResult TypeResult StatusCorey Jossue DOCLINISYNCFinal Result Performing OrganizationAddressCity/State/ZIP CodePhone Number [facility] * CCF AST (06/04/2025 4:53 PM EST)ComponentValueRef RangeTest MethodAnalysis TimePerformed AtPathologist SignatureASPARTATE AMINO OJHEADWPEON9999 - 37 U/L TBHSpecimen (Source)Anatomical Location / [...] AtPathologist SignatureCREATININE0.690.55 - 1.02 mg/dL TBHTBH EGFR-AF EMIRATI>60>=60 mL/min/1.73m 2TBHTBH EGFR-NON AF EMIRATI>60 >=60 mL/min/1.73m 2TBHSpecimen (Source)Anatomical Location / Laterality [...] AtPathologist SignatureTOTAL PROTEIN URINE RANDOM<6.0<=11.9 mg/dLTBHCREATININE URINE QNPZUC27.1420.00 - 300.00 mg/dLTBHSpecimen (Source)Anatomical Location / LateralityCollection Method / VolumeCollection TimeReceived Time06/04/2025 4:35 PM EST06/04/2025 4:58 PM EST Narrative CLINISYNC - 06/04/2025 5:12 PM EST Authorizing ProviderResult TypeResult StatusCorey Jossue DOCLINISYNCFinal Result Performing OrganizationAddressCity/State/ZIP CodePhone Number CLINISYNC TBH documented in this encounter Visit Diagnoses Not on filedocumented in this encounter Care Teams Team MemberRelationshipSpecialtyStart DateEnd Josr Martinez MD [address] [facility], [facility] [address] [place] [address] PCP - GeneralFamily Medicine11/08/24documented as of this encounter
--- OUTSIDE RECORDS SUMMARY | 2025-06-14 10:31 | XMS_ITS | Encounter Summary ---
Author Organization [facility] Address [address] [facility] [place] [address] Care Team Providers Care Centrifugal Station Operator Name Role Phone Mecca Leone MD Primary Care Provider [phone] Encounter Details DateTypeDepartmentCare Team (Latest Contact Info)Rhcukdqvgqo91/19/2025linisync Result Encounter [facility]S External Department Unsolicited Ishaan Marcum, DO [address], [facility]11 Social History Tobacco UseTypesPacks/DayYears UsedDateSmoking Tobacco: NeverSmokeless Tobacco: Current Comments:Vape Alcohol UseStandard Drinks/WeekCommentsNot Currently0 (1 standard drink = 0.6 oz pure alcohol)Estimated Date of FnkvfopbAygbrpghSep53/07/2025Based on UltrasoundSex and Gender InformationValueDate RecordedSex Assigned at BirthNot on fileLegal PpeWfhdvc33/07/2024 2:18 PM EDTGender IdentityNot on fileSexual OrientationNot on filedocumented as of this encounter Plan of Treatment DateTypeDepartmentCare Team (Latest Contact Info)Jxacherlkti91/19/2026 8:30 AM ESTProcedure Visit [facility] Connie WAREGYN [address] [facility] [place] [address] Ishaan Marcum DO [address] [place] [address] documented as of this encounter Procedures Procedure NamePriorityDate/TimeAssociated DiagnosisCommentsUS OB BPP W NON-ELSKJX0806/04/2025 11:42 PM EST documented in this encounter Results * US OB BPP W NON-STRESS (06/04/2025 11:42 PM EST)Anatomical Region LateralityModalityOtherSpecimen (Source)Anatomical Location / Laterality Collection Method / VolumeCollection TimeReceived Time06/04/2025 11:42 PM EST Narrative 06/04/2025 11:44 PM EST [facility] ?[address] ? [place], [facility]11 ? Ultrasound Report ? Signed ? Patient: SHEFALI,CHRIST L ?MR#: [id number] ?? : 2000 ?Acct:[id number] ?? Age/Sex: 25 / F ?ADM Date: ?? Loc: [facility] ??253-1 ? Attending Dr: Ishaan Marcum D.O. ? Ordering Physician: Ishaan Marcum D.O. ?? Date of Service: 06/04/25 ?? Procedure(s): US OB BPP w non-stress ?? Accession Number(s): [id number] ? cc: Ishaan Marcum D.O.; MECCA LEONE ? [facility] ? [address] ? [place] [address] ? Patient Name: ?? CHRIST MEEHAN ? MRN: [facility]:[id number] ? date: 2000 ?Sex: F ?? Assigned Patient Location: [facility] ?? Current Patient Location: [facility] ?? Accession/Order Number: [id number] ?? Exam Date: 06/04/2025 ??17:30 ?Report Date: [...] Dictation Location: RADIO-PC-20 ? Electronically authenticated by: [id number] ??Y ?? Date: 06/04/2025 ??23:42 ? Dictated By: ?Giovanny Bejarano D.O. ? Signed By: ?06/04/25 2344 ? DD/ 2342 ? TD/TT: ? Brass Cleaner: Procedure Note Radiology, Radiologist, - 06/05/2025 [place] [address] Ultrasound Report Signed Patient: CHRIST MEEHAN LMR#: [id number] : 2000Acct:[id number] Age/Sex: FADM Date: Loc: [facility] 253-[address]: Ishaan Marcum D.O. Ordering Physician: Ishaan Marcum D.O. Date of Service: 06/04/25 Procedure(s): US OB BPP w non-stress Accession Number(s): [id number] cc: Ishaan Marcum D.O.; MECCA LEONE The [place] [address] Patient Name: CHRIST MEEHAN MRN: [id number] date: 2000 Sex: F Assigned Patient Location: [facility] Current Patient Location: [facility] Accession/Order Number: [id number] Exam Date: 06/04/2025 17:30 Report Date: 06/04/2025 [...] Bejarano M.D. 06/04/2025 11:42 PM Dictation Location: [place] [address] Electronically authenticated by: [id number] Y Date: 3:42 Dictated By: Givoanny Bejarano D.O. Signed By:06/04/252343 DD/ 41 TD/TT: Brass Cleaner: Authorizing ProviderResult TypeResult StatusCorey Jossue DOCLINISYNC IMAGINGFinal Result documented in this encounter Visit Diagnoses Not on filedocumented in this encounter Care Teams Team MemberRelationshipSpecialtyStart DateEnd Date Mecca Leone MD [address] [facility], [facility] [address] [place] [address] PCP - GeneralFamily Medicine11/08/24documented as of this encounter
--- OUTSIDE RECORDS SUMMARY | 2025-06-14 10:31 | XMS_ITS | Encounter Summary ---
Author Organization [facility] Address [address] [facility] [place] [address] Care Team Providers Care Leather Cartridge Belt Maker Name Role Phone Josr Martinez MD Primary Care Provider [phone] Encounter Details DateTypeDepartmentCare Team (Latest Contact Info)Myfwwciubyp08/24/2025Bamboo flowsheet LAISHA MACKEY [address] [place] [address] [place] [address] Edy Marcum DO [address] [place] [address] [address], [place] [address] Social History Tobacco UseTypesPacks/DayYears UsedDateSmoking Tobacco: NeverSmokeless Tobacco: Current Comments:Vape Alcohol UseStandard Drinks/WeekCommentsNot Currently0 (1 standard drink = 0.6 oz pure alcohol)Estimated Date of GucvxdfaKtztgwiaMhq52/07/2025Based on UltrasoundSex and Gender InformationValueDate RecordedSex Assigned at BirthNot on fileLegal JrhYswngb08/07/2024 2:18 PM EDTGender IdentityNot on fileSexual OrientationNot on filedocumented as of this encounter Plan of Treatment DateTypeDepartmentCare Team (Latest Contact Info)Wmvgtdjdzqz38/19/2026 8:30 AM ESTProcedure Visit LAISHA MACKEY [address] [place] [address] [place] [address] Edy Marcum DO [address] [place] [address] Amina Rosales, [facility]11 documented as of this encounter Visit Diagnoses Not on filedocumented in this encounter Care Teams Team MemberRelationshipSpecialtyStart DateEnd Date Josr Martinez MD [address] [facility], [place] [address] PCP - GeneralFamily Medicine11/08/24documented as of this encounter
--- OUTSIDE RECORDS SUMMARY | 2025-06-14 10:31 | XMS_ITS | Clinical Summary ---
Author Organization [facility] Address [address] [place] [address] Care Team Providers Care Die Cast Operator Name Role Phone Mecca Leone MD Primary Care Provider [phone] Allergies No known active allergies Medications MedicationSigDispense QuantityRefillsLast FilledStart DateEnd DateStatus magnesium oxide (Mag-Ox) 400 MG tablet Indications:Leg cramps in ([facility])Take 1 tablet (400 mg) by mouth Daily 30 tablet 6004/09/323393/ctive calcium carbonate (Os-Barry) 1250 (500 Ca) MG chewable tablet Chew 1 tablet DailyActive Encounters DateTypeDepartmentCare PczyNxrenzsdvws40/24/2025 11:10 AM ESTRoutine [facility] Connie MACKEY [address] [place] [address] [place] [address] Ishaan Marcum, Third trimester ([facility]); 38 weeks gestation of ([facility])06/09/2025amboo flowsheet NOMLatisha MACKEY [address] [place] [address] [place] [address] Ishaan Marcum DO 06/04/2025 3:20 PM ESTRoutine LAISHA H[facility] [place] [address] Lissa Steward PA 37 weeks gestation of ([facility]); Third trimester ([facility]); induced hypertension, antepartum ([facility])06/04/2025linisync Result Encounter NOMS External Department Unsolicited Jossue, Ishaan, DO 06/04/2025linisync Result Encounter NOMS External Department Unsolicited Ishaan Marcum, DO 06/04/2025amboo flowsheet [facility] [place] [facility] [address] [address] Lissa Steward PA 05/29/20259875Txmppv44/10/2025 4:00 PM ESTRoutine [facility] [address] [place] [address] Lissa Steward PA Third trimester ([facility]); 36 weeks gestation of ([facility])05/26/2025linisync Result Encounter NOMS External Department Unsolicited Lissa Steward PA 05/26/2025amboo flowsheet [facility] [address] [place] [address] Lissa Steward PA 05/25/20256182Dusoun50/04/2025 8:50 AM ESTRoutine [facility] [address] [place] [address] Lissa Steward PA Third trimester ([facility]); 35 weeks gestation of ([facility])05/20/2025amboo flowsheet [facility] [place] [facility] [address] [place] [address] Lissa Steward PA 05/13/20255073Pjqjwy13/20/2025 8:40 AM EDTRoutine [facility] [place] [facility] [address] [place] [address] Ishaan Marcum DO 33 weeks gestation of ([facility]); Third trimester ([facility]); Leg cramps in ([facility])05/05/2025amboo flowsheet [facility] [place] [facility] [address] [place] [address] Ishaan Marcum, DO 5Clinisync Result Encounter NOMS External Department Unsolicited Ishaan Marcum, DO 04/30/2025Telephone [facility] [address] [place] [address] Ishaan Marcum, DO 04/28/20250852Fjxafr86/08/2025 3:10 PM EDTRoutine [facility] [address] [place] [address] Cristin Beckett, CELIO Third trimester ([facility]); 30 weeks gestation of ([facility])04/23/2025amboo flowsheet [facility] [address] [place] [address] Cristin Beckett, CELIO 04/16/20259399Uxcrjk00/24/2025 3:50 PM EDTRoutine [facility] [address] [place] [address] Ishaan Marcum, DO Third trimester ([facility]); 29 weeks gestation of ([facility]); Leg cramps in ([facility])04/09/2025 3:00 PM EDTAncillary Procedure [facility] [address] [place] [address] Size of fetus inconsistent with dates in second trimester ([facility])04/02/2025 Xllbsz025Clinisync Result Encounter NOMS External Department Unsolicited Lissa Steward PA from Last 3 Months Family History Medical HistoryRelationNameCommentsHypertensionFatherMarkDiabetesMaternal GrandfatherDavidMigrainesMotherChristinaDiabetesPaternal GrandfatherArthurHeart failurePaternal GrandfatherArthurHypertensionPaternal GrandfatherArthurRelation NameStatusCommentsFatherMarkAliveMaternal GrandfatherDavidAliveMotherChristina AlivePaternal GrandfatherArthurAlive Social History Tobacco UseTypesPacks/DayYears UsedDateSmoking Tobacco: NeverSmokeless Tobacco: Current Tobacco Cessation:Ready to Q uit: Not Asked; Counseling Given: Not Answered Comments:Vape Alcohol UseStandard Drinks/WeekCommentsNot Currently0 (1 standard drink = 0.6 oz pure alcohol)Estimated Date of JsvprslfEaydpnubPcq11/07/2025Based on UltrasoundSex and Gender InformationValueDate RecordedSex Assigned at BirthNot on fileLegal EkhMfciad72/07/2024 2:18 PM EDTGender IdentityNot on fileSexual OrientationNot on file Last Filed Vital Signs Vital SignReadingTime TakenCommentsBlood Awdktgtc756/7006/09/2025 11:37 AM EST Pulse--Temperature--Respiratory Rate--Oxygen Saturation--Inhaled Oxygen Concentration--Izqyta95.6 kg (182 lb)06/09/2025 11:37 AM QZRDeolrz751.9 cm (5' 1 )11/08/2024 10:59 AM EDTBody Mass Index34.39011/08/2024 10:59 AM EDT Plan of Treatment DateTypeDepartmentCare Team (Latest Contact Info)Lmmkdfueubx75/19/2026 8:30 AM ESTProcedure Visit [facility] [address] [place] [address] Ishaan Marcum DO [address] [place] [address] Procedures Procedure NamePriorityDate/TimeAssociated DiagnosisCommentsPOCT URINALYSIS LKKQXCVZZimbznz66/24/2025 11:37 AM EST 38 weeks gestation of ([facility] US OB BPP W NON-EHCWFH8606/04/2025 11:42 PM EST [facility] NRICGhbxewo16/19/2025 4:53 PM EST SRMCOH PROTHROMBIN TIME INR W/O LYPOZojigzh50/19/2025 4:53 PM EST ALL CBC WITH AUTO XOHJMokeemj54/19/2025 4:53 PM EST ALL KMSShtzgyz49/19/2025 4:53 PM EST [facility] PGUUlqnugs73/19/2025 4:53 PM EST [facility] RXFTyrmarp91/19/2025 4:53 PM EST ALL URIC VYTARfhkxii79/19/2025 4:53 PM EST [facility] SPIVOLIWKMGlkhfsi68/19/2025 4:53 PM EST ALL NCUQebrsyo51/19/2025 4:53 PM EST [facility] URINE T PROTEIN CREAT WYGTHAbpvpgm79/19/2025 4:35 PM EST POCT URINALYSIS RSTQCEQVXugujsh03/19/2025 3:33 PM EST 37 weeks gestation of ([facility]) Third trimester ([facility]) POCT URINALYSIS WVMBGMEGPjutnqj42/10/2025 4:19 PM EST 36 weeks gestation of ([facility]) STREP GP B OQOFymzdmp40/10/2025 4:00 PM EST POCT URINALYSIS RFOPVKGINscokky56/04/2025 9:05 AM EST 35 weeks gestation of ([facility]) POCT URINALYSIS DADKAHWUZjnlaic85/20/2025 8:46 AM EDT 33 weeks gestation of ([facility]) Third trimester ([facility]) [facility] SRXOgktmyq92/15/2025 11:12 AM EDT [facility] VSELcpkthu89/15/2025 11:12 AM EDT ALL URIC NUEJBdcxpyy67/15/2025 11:12 AM EDT TB[facility] BQXXUDVMXPCivbtam74/15/2025 11:12 AM EDT ALL CLIXadftxy36/15/2025 11:12 AM EDT ALL CBC WITH AUTO BDJEEobqabn36/15/2025 11:12 AM EDT MHPT VLEUZKNJGSNtrrmhe07/15/2025 11:12 AM EDT [facility] UNWSMhqpiva59/15/2025 11:12 AM EDT SRMCOH PROTHROMBIN TIME INR W/O FUMNMbhieaa40/15/2025 11:12 AM EDT [facility] URINE T PROTEIN CREAT PYYPWNqlgtbf87/15/2025 10:40 AM EDT POCT URINALYSIS UJHJIJCRXpszqhu47/08/2025 3:24 PM EDT Third trimester ([facility]) POCT URINALYSIS WRFRVJLBLflhuzp87/24/2025 3:39 PM EDT Third trimester ([facility]) US OB FOLLOW UP TRANSABDOMINAL WJZOPPKKRjcvpww58/24/2025 3:15 PM EDT Size of fetus inconsistent with dates in second trimester ([facility]) GLUCOSE 1 WFLZCvkljaf32/29/2025 9:13 AM EDT ALL CBC WITH AUTO JBYPRiydzdj93/29/2025 9:13 AM EDT from Last 3 Months Results * POCT urinalysis dipstick manually resulted (06/09/2025 11:37 AM EST) Only the most recent of7 resultswithin [...] Location / LateralityCollection Method / VolumeCollection TimeReceived JyvgEtbjb09/24/2025 11:37 AM EST Narrative Authorizing ProviderResult TypeResult StatusCorey Jsosue DOPOINT OF CARE TEST ENTER/EDIT ORDERABLESFinal Result * US OB BPP W NON-STRESS (06/04/2025 11:42 PM EST)Anatomical Region LateralityModalityOtherSpecimen (Source)Anatomical Location / Laterality Collection Method / VolumeCollection TimeReceived Time06/04/2025 11:42 PM EST Narrative 06/04/2025 11:44 PM EST [facility] ?[address] ? [place] [address] ? Ultrasound Report ? Signed ? Patient: CHRIST MEEHAN ?MR#: [id number] ?? : 2000 ?Acct:[id number] ?? Age/Sex: 25 / F ?ADM Date: ?? Loc: [facility] ??253-1 ? Attending Dr: Ishaan Marcum D.O. ? Ordering Physician: Ishaan Marcum D.O. ?? Date of Service: 06/04/25 ?? Procedure(s): US OB BPP w non-stress ?? Accession Number(s): [id number] ? cc: Ishaan Marcum D.O.; MECCA LEONE ? [facility] ? [address] ? [place] [address] ? Patient Name: ?? CHRIST MEEHAN ? MRN: [facility]:[id number] ? date: 2000 ?Sex: F ?? Assigned Patient Location: FB ?? Current Patient Location: FB ?? Accession/Order Number: [id number] ?? Exam Date: 06/04/2025 ??17:30 ?Report Date: [...] M.D. ??06/04/2025 11:42 PM ? Dictation Location: [facility]--20 ? Electronically authenticated by: [id number] ??Y ?? Date: 06/04/2025 ??23:42 ? Dictated By: ?Giovanny Bejarano D.O. ? Signed By: ?06/04/252343 ? DD/ 2342 ? TD/TT: ? Director Sales Training: Procedure Note Radiology, Radiologist, MD - 06/05/2025 [place] [address] Ultrasound Report Signed Patient: CHRIST MEEHAN LMR#: [id number] : 2000Acct:[id number] Age/Sex: 25 / FADM Date: Loc: [facility] 253-[address]: Ishaan Marcum D.O. Ordering Physician: Ishaan Marcum D.O. Date of Service: 06/04/25 Procedure(s): US OB BPP w non-stress Accession Number(s): [id number] cc: Ishaan Marcum D.O.; MECCA LEONE The [address] [address] Patient Name: CHRIST MEEHAN MRN: [id number] date: 2000 Sex: F Assigned Patient Location: [facility] Current Patient Location: [facility] Accession/Order Number: [id number] Exam Date: 06/04/2025 17:30 Report Date: 06/04/2025 [...] Bejarano M.D. 06/04/2025 11:42 PM Dictation Location: [place] [address] Electronically authenticated by: [id number] Y Date: 3:42 Dictated By: Giovanny Bejarano D.O. Signed By:06/04/254 DD/ 41 TD/TT: Director Sales Training: Authorizing ProviderResult TypeResult StatusCorey Jossue DOCLINISYNC IMAGINGFinal Result * [facility] CREATININE (06/04/2025 4:53 PM EST) Only the most recent of2 resultswithin the time period is included. ComponentValueRef RangeTest MethodAnalysis TimePerformed AtPathologist Signature CREATININE0.690.55 - 1.02 mg/dLTBHTBH EGFR-AF BELGIAN>60>=60 mL/min/1.73m 2TBH TBH EGFR-NON AF BELGIAN>60>=60 mL/min/1.73m 2TBHSpecimen (Source)Anatomical Location / LateralityCollection Method [...] DOCLINISYNCFinal Result Performing OrganizationAddressCity/State/ZIP CodePhone Number CLINISYNC [facility] * [facility] AST (06/04/2025 4:53 PM EST) Only the most recent of2 resultswithin the time period is included. ComponentValueRef RangeTest MethodAnalysis TimePerformed AtPathologist Signature ASPARTATE AMINO VPBSBBUIHAP7392 - 37 U/LTBHSpecimen (Source)Anatomical Location / LateralityCollection Method / VolumeCollection TimeReceived Time06/04/2025 4:53 PM EST06/04/2025 4:58 PM EST Narrative CLINISYNC - 06/04/2025 5:14 PM EST Authorizing ProviderResult TypeResult StatusCorey Jossue DOCLINISYNCFinal Result Performing OrganizationAddressCity/State/ZIP CodePhone Number CLINMARENNC [facility] * CCF APTT (06/04/2025 4:53 PM EST) [...] DOCLINISYNCFinal Result Performing OrganizationAddressCity/State/ZIP CodePhone Number CLINISYNC [facility] * CCF ALT (06/04/2025 4:53 PM EST) Only the most recent of2 resultswithin the time period is included. ComponentValueRef RangeTest MethodAnalysis TimePerformed AtPathologist Signature ALANINE KOSGCMTGSQVBYXYA7490 - 59 U/LTBHSpecimen (Source)Anatomical Location / LateralityCollection Method / VolumeCollection TimeReceived Time06/04/2025 4:53 PM EST06/04/2025 4:58 PM EST Narrative CLINISYNC - 06/04/2025 5:14 PM EST Authorizing ProviderResult TypeResult StatusCorey Jossue DOCLINISYNCFinal Result Performing OrganizationAddressCity/State/ZIP CodePhone Number CLINISYNC TB * ALL URIC ACID (06/04/2025 4:53 [...] EST)ComponentValueRef RangeTest Method Analysis TimePerformed AtPathologist SignatureLACTATE WWTCQMGXCAXIE233(H)81 - 234 U/LTBHSpecimen (Source)Anatomical Location / LateralityCollection [...] - 35.2 g/dLTBHTBH RDW12.111.0 - 15.0 %TBHTBH SBG368559 - 450 10 3/uLTBHTBH MPV10.79.5 - 13.5 [...] DOCLINISYNCFinal Result Performing OrganizationAddressCity/State/ZIP CodePhone Number CLINISYNC [facility] * (ABNORMAL) ALL BUN (06/04/2025 4:53 [...] Jossue DOCLINISYNCFinal Result Performing OrganizationAddressCity/State/ZIP CodePhone Number [facility] * [facility] URINE T PROTEIN CREAT RATIO (06/04/2025 4:35 PM EST) Only the most recent of2 resultswithin the time period is included. ComponentValueRef RangeTest MethodAnalysis TimePerformed AtPathologist Signature TOTAL PROTEIN URINE RANDOM<6.0<=11.9 mg/dLTBHCREATININE URINE RXJDKJ44.1420.00 - 300.00 mg/dLTBHSpecimen (Source)Anatomical Location / LateralityCollection Method / VolumeCollection TimeReceived Time06/04/2025 4:35 PM EST06/04/2025 4:58 PM EST Narrative CLINISYNC - 06/04/2025 5:12 PM EST Authorizing ProviderResult TypeResult StatusCorey Jossue DOCLINISYNCFinal Result Performing OrganizationAddressCity/State/ZIP CodePhone Number LEEANNANC [facility] * STREP GP B CHERYL (05/26/2025 [...] clindamycin is noted.TBHSTREP GP B NAAPerformed at: [facility]TBHSTREP GP B [id number] [place], [place] [id number] STREP GP B NAALab Director: Kaden Merino PhD, Phone: [phone] (Source)Anatomical Location / LateralityCollection Method / VolumeCollection TimeReceived Time05/26/2025 4:00 PM EST05/26/2025 9:24 PM EST Narrative CLINISYNC - 05/29/2025 1:09 PM EST Authorizing ProviderResult TypeResult StatusAmy AuberryWVUMedicine [facility] BLOOD ORDERABLES Final ResultPerforming OrganizationAddressCity/State/ZIP CodePhone Number CLINISYNC [facility] * (ABNORMAL) MHPT FIBRINOGEN (04/30/2025 11:12 AM EDT)ComponentValueRef Range Test MethodAnalysis TimePerformed AtPathologist UtgvepgbzJQWBOHOCOS966(H)200 - 400 mg/dLTBHSpecimen (Source)Anatomical Location / LateralityCollection Method / VolumeCollection TimeReceived Time04/30/2025 11:12 AM EDT1 11:20 AM EDT Narrative CLINISYNC - 04/30/2025 12:12 PM EDT Authorizing ProviderResult TypeResult StatusCorey Jossue DOCLINISYNCFinal Result Performing OrganizationAddressCity/State/ZIP CodePhone Number CLINISYNC [facility] * US OB follow up transabdominal [...] BY: Adonay Peraza MD Authorizing ProviderResult TypeResult StatusLissa Steward PAIMG OB US PROCEDURES Final Result * GLUCOSE 1 HOUR (03/14/2025 9:13 AM EDT)ComponentValueRef RangeTest Method Analysis TimePerformed AtPathologist SignatureGLUCOSE 1 GJKU842<130 mg/dLTBH Specimen (Source)Anatomical Location / LateralityCollection Method / Volume Collection TimeReceived Time03/14/2025 9:13 AM EDT03/14/2025 9:20 AM EDT Narrative CLINISYNC - 03/14/2025 11:40 AM EDT Authorizing ProviderResult TypeResult StatusLissa Steward PAL BLOOD ORDERABLES Final ResultPerforming OrganizationAddressCity/State/ZIP CodePhone Number [facility] from Last 3 Months Insurance Care Teams Team MemberRelationshipSpecialtyStart DateEnd Date Mecca Leone MD [address] [facility], [address] [address] PCP - GeneralFamily Medicine11/08/24
--- OUTSIDE RECORDS SUMMARY | 2025-06-14 10:31 | XMS_ITS | Encounter Summary ---
Author Organization [facility] Address [address] [place] [address] Care Team Providers Care Count Team Member Name Role Phone Josr Martinez MD Primary Care Provider [phone] Encounter Details DateTypeDepartmentCare Team (Latest Contact Info)Yspdnvrwrmb33/19/2025amboo flowsheet LAISHA MACKEY [address] [place] [address] [place] [address] Lissa Steward PA [address] [place], [place] [address] Social History Tobacco UseTypesPacks/DayYears UsedDateSmoking Tobacco: NeverSmokeless Tobacco: Current Comments:Vape Alcohol UseStandard Drinks/WeekCommentsNot Currently0 (1 standard drink = 0.6 oz pure alcohol)Estimated Date of MiznqorpVprwhbbuQsx68/07/2025Based on UltrasoundSex and Gender InformationValueDate RecordedSex Assigned at BirthNot on fileLegal FtdYeswdg61/07/2024 2:18 PM EDTGender IdentityNot on fileSexual OrientationNot on filedocumented as of this encounter Plan of Treatment DateTypeDepartmentCare Team (Latest Contact Info)Reezymfjslu12/19/2026 8:30 AM ESTProcedure Visit NOMLatisha MACKEY [address] [place] [address] [place] [address] Edy Marcum DO [address] [place], [facility]11 documented as of this encounter Visit Diagnoses Not on filedocumented in this encounter Care Teams Team MemberRelationshipSpecialtyStart DateEnd Date Josr Martinez MD [address] [facility][note 3], [facility] [address] [place] [address] PCP - GeneralFamily Medicine11/08/24documented as of this encounter
--- OUTSIDE RECORDS SUMMARY | 2025-06-14 10:31 | XMS_ITS | Clinical Summary ---
Author Organization [facility] Address [address] [place] [address] Phone Care Team Providers Care Motor Carrier Inspector Name Role Phone Josr Martinez PA-C Primary Care Provider [phone] Allergies No known active allergies Medications MedicationSigDispense [...] Additional Information Patient not taking.Reported on 11/19/2024 1-MUZJ-EMXCN ACID-OM3 ORAL Take by mouth.Active Active Problems ProblemNoted DateDiagnosed DateLow blood sugar03/21/2023Low vitamin B12 level 03/21/2023Vitamin D auwtmzninzkig18/05/2023Elevated wyzhkmmcd78/05/2023 Mserhaelphqah79/05/2023remenstrual /05/2023remenstrual syndrome 03/21/2023eneralized anxiety /14/2023 Family History Medical HistoryRelationNameCommentsHypertensionFatherDiabetesMaternal GrandfatherAlzheimer's diseaseMaternal GrandmotherDiabetesPaternal Grandfather Heart diseasePaternal GrandfatherRelationNameStatusCommentsFatherMaternal GrandfatherMaternal GrandmotherPaternal Grandfather Social History Tobacco UseTypesPacks/DayYears UsedDateSmoking Tobacco: NeverSmokeless Tobacco: Never Tobacco Cessation:Counseling Given: Not Answered PHQ-2AnswerDate RecordedPatient Health Questionnaire-2 Xhrmz595 CommentsUnknownSex and Gender InformationValueDate RecordedSex Assigned at Onnvmy0701/09/2024 2:41 PM EDTLegal AgaMqhgwd37/25/2022 10:21 PM ESTGender SprahnmvMnrmni73/25/2024 2:41 PM EDTSexual OrientationNot on file Last Filed Vital Signs Vital SignReadingTime TakenCommentsBlood Hsgfxpxe407/78011/19/2024 7:27 AM EDT Yacvi280911/19/2024 7:27 AM URGJjwrhpliwok66.6 ??C (97.8 ??F)09/18/2024 3:27 PM ESTRespiratory Zpjq152309/18/2024 3:27 PM ESTOxygen Onbqukwupa34%11/19/2024 7:27 AM EDTInhaled Oxygen Concentration--Xerkgu50.3 kg (144 lb)11/19/2024 7:27 AM EDT Jepefz033.8 cm (5' 2.5 )11/19/2024 7:27 AM EDTBody Mass Index25.9211/19/2024 7:27 AM EDT Plan of Treatment DateTypeDepartmentCare Team (Latest Contact Info)Wyjjnvwfsoy80/07/2026 8:00 AM EDTOffice Visit [facility] [address] [place] [address] Josr Martinez PA-C [address] [facility], [address] [place] [address] Health MaintenanceDue DateLast DoneCommentsHIV Kfrqzlkmj1998Lipid Panel 1998MMR Vaccines (1 of 1 - Standard series)1999Hepatitis C Screening 01/24/2016Hepatitis B Vaccines (1 of 3 - 19+ 3-dose series)2017HPV/Cotest 2019DTaP/Tdap/Td Vaccines (1 - Tdap)01/24/2020HPV Vaccines (1 - 3-dose standard series)2025Influenza Vaccine (#1)5COVID-19 Vaccine (1 - season)5Yearly Adult Yybbbxrz05/26/48002208/10/2023, 07/27/2022, 09/25/2020ervical Cancer Cpjjsylgn70/25/2027Pap Smear7108/10/2023, 07/29/2021Zoster Vaccines (1 of 2)01/24/2048HIB VaccinesAged [...] Type:Not on file Address: [id number] Care Teams Team MemberRelationshipSpecialtyStart DateEnd Josr Moran PA-C [address] [facility], [place] [address] PCP - GeneralFamily Medicine11/24/23
[2025-06-14 11:06] VITALS: BP 139/78; PULSE 75
[2025-06-14 11:35] VITALS: BP 123/75; PULSE 75
== END 2025-06-14 11:38 | disposition home or self-care (01) ==
LOC: FBCO 10:28 → FBC 11:01
PROVIDERS: Visit Provider Obstetrics & Gynecology
DX: O16.3 Unspecified maternal hypertension, third trimester (principal)
CPT/HCPCS: 59025

== ENCOUNTER 2025-06-17 23:04 | Inpatient (IN) | payer BC, SELFPAY ==
--- OUTSIDE RECORDS SUMMARY | 2025-06-04 15:20 | XMS_ITS | Encounter Summary ---
Author Organization [facility] Address [address] [facility] [place] [address] Care Team Providers Care Automotive Production Worker Name Role Phone Josr Martinez MD Primary Care Provider [phone] Reason for Visit * ReasonCommentsRoutine Visit Encounter Details DateTypeDepartmentCare Team (Latest Contact Info)Zxaqtdyyywl59/19/2025 3:20 PM ESTRoutine [facility] Connie OBGYJessica [address] [place] [phone] Lissa Steward PA [address] [facility] [address] [place], [facility]11 37 weeks gestation of ([facility]); Third trimester ([facility]); induced hypertension, antepartum ([facility]) Social History Tobacco UseTypesPacks/DayYears UsedDateSmoking Tobacco: NeverSmokeless Tobacco: Current Comments:Vape Alcohol UseStandard Drinks/WeekCommentsNot Currently0 (1 standard drink = 0.6 oz pure alcohol)Estimated Date of UuspwjbePpljjzhgPtk00/07/2025Based on UltrasoundSex and Gender InformationValueDate RecordedSex Assigned at BirthNot on fileLegal KshRuleky43/07/2024 2:18 PM EDTGender IdentityNot on fileSexual OrientationNot on filedocumented as of this encounter Last Filed Vital Signs Vital SignReadingTime TakenCommentsBlood Rggncqjp211/9211/ 3:42 PM EST 138/90Pulse--Temperature--Respiratory Rate--Oxygen Saturation--Inhaled Oxygen Concentration--Lpqbtb35 kg (183 lb)06/04/2025 3:42 PM ESTHeight--Body Mass [...] nursing note reviewed. Exam conducted with a design cell engineer present. Vitals: Estimated body mass index is 34.6 kg/m?? as calculated from the following: Height as of 11/08/24: 5' 1 . Weight as of 05/26/25: 183 lb 1.9 oz. BP: Patient's last menstrual period was 09/06/2024. Assessment/Plan ICD-10-CM 1. 37 weeks gestation of ([facility]) Z3A.37 POCT urinalysis dipstick manually resulted US biophysical profile w non stress test Protein / creatinine ratio, urine Protein / creatinine ratio, urine 2. Third trimester ([facility]) Z34.93 POCT urinalysis dipstick manually resulted US biophysical profile w non stress test Protein / creatinine ratio, urine Protein / creatinine ratio, urine 3. induced hypertension, antepartum ([facility]) O13.9 US biophysical profile w non stress [...] for routine OB appointment. Documented by Roxane Zaiid LPN/ Brigitte Gr LPN on behalf of: CATARINA Ragsdale documented in this encounter Plan of Treatment DateTypeDepartmentCare Team (Latest Contact Info)Bgvpxtcbjmz55/19/2026 8:30 AM ESTProcedure Visit [facility] Connie MACKEY [address] [place] [address] JossueEdy meza DO [address] [place] [address] NameTypePriorityAssociated DiagnosesOrder ScheduleUS biophysical profile w non [...] this encounter Procedures Procedure NamePriorityDate/TimeAssociated DiagnosisCommentsPOCT URINALYSIS JBXBEJWUYqdfyme33/19/2025 3:33 PM EST 37 weeks gestation of [...] / LateralityCollection Method / VolumeCollection Time Received InwnVefdj75/19/2025 3:33 PM EST Narrative Authorizing ProviderResult TypeResult StatusLife[facility] TEST ENTER/EDIT ORDERABLESFinal Result documented in this encounter Visit Diagnoses Diagnosis 37 weeks gestation of ([facility]) Third trimester ([facility]) state, incidental induced hypertension, antepartum ([facility]) Transient hypertension of , antepartum documented in this encounter Care Teams Team MemberRelationshipSpecialtyStart DateEnd Date Josr Martinez MD [address] [facility] [place] [address] [place] [phone] PCP - GeneralFamily Medicine11/08/24documented as of this encounter
--- OUTSIDE RECORDS SUMMARY | 2025-06-09 11:10 | XMS_ITS | Encounter Summary ---
Author Organization [facility] Address [address] [facility] [place] [address] Care Team Providers Care Academic Affairs Specialist Name Role Phone Josr Martinez MD Primary Care Provider [phone] Reason for Visit * ReasonCommentsRoutine Visit Encounter Details DateTypeDepartmentCare Team (Latest Contact Info)Exywxcljsyo32/24/2025 11:10 AM ESTRoutine [facility] [address] [place] [phone] Edy Marcum DO [address] [facility] [address] [place] [phone] Third trimester ([facility]); 38 weeks gestation of ([facility]) Social History Tobacco UseTypesPacks/DayYears UsedDateSmoking Tobacco: NeverSmokeless Tobacco: Current Comments:Vape Alcohol UseStandard Drinks/WeekCommentsNot Currently0 (1 standard drink = 0.6 oz pure alcohol)Estimated Date of RrwengkfUwnafadkRrw46/07/2025Based on UltrasoundSex and Gender InformationValueDate RecordedSex Assigned at BirthNot on fileLegal FlcEfznxj32/07/2024 2:18 PM EDTGender IdentityNot on fileSexual OrientationNot on filedocumented as of this encounter Last Filed Vital Signs Vital SignReadingTime TakenCommentsBlood Ksuonzuh029/7006/09/2025 11:37 AM EST Pulse--Temperature--Respiratory Rate--Oxygen Saturation--Inhaled Oxygen Concentration--Mqgctb11.6 kg (182 lb)06/09/2025 11:37 AM ESTHeight--Body Mass [...] nursing note reviewed. Exam conducted with a adult literacy teacher present. Vitals: Estimated body mass index is 34.39 kg/m?? as calculated from the following: Height as of 11/08/24: 5' 1 . Weight as of this encounter: 182 lb. BP: 118/70 Patient's last menstrual period was 09/06/2024. Assessment/Plan ICD-10-CM 1. Third trimester ([facility]) Z34.93 2. 38 weeks gestation of ([facility]) Z3A.38 POCT urinalysis dipstick manually resulted [...] Plan of Treatment DateTypeDepartmentCare Team (Latest Contact Info)Gsdneszoggx94/19/2026 8:30 AM ESTProcedure Visit [facility] [address] [facility] [address] Edy Marcum DO [address] [place], [place] [phone] documented as of this encounter Procedures Procedure NamePriorityDate/TimeAssociated DiagnosisCommentsPOCT URINALYSIS OASZHQUTSdsxikw64/ 11:37 AM EST 38 weeks gestation of ([facility]) documented in this encounter Results * POCT [...] this encounter Visit Diagnoses Diagnosis Third trimester ([facility]) state, incidental 38 weeks gestation of ([facility]) documented in this encounter Care Teams Team MemberRelationshipSpecialtyStart DateEnd Date Josr Martinez MD [address] [facility], [facility] [address] [place] [address] PCP - GeneralFamily Medicine11/08/24documented as of this encounter
--- OUTSIDE RECORDS SUMMARY | 2025-06-17 23:11 | XMS_ITS | Encounter Summary ---
Author Organization [facility] Address [address] [facility] [place] [address] Care Team Providers Care Chucking And Boring Machine Operator Name Role Phone Josr Martinez MD Primary Care Provider [phone] Encounter Details DateTypeDepartmentCare Team (Latest Contact Info)Fvlqpervvoy79/26/2025linisync Result Encounter [facility]S External Department Unsolicited Ishaan Marcum, DO [address], [facility]11 Social History Tobacco UseTypesPacks/DayYears UsedDateSmoking Tobacco: NeverSmokeless Tobacco: Current Comments:Vape Alcohol UseStandard Drinks/WeekCommentsNot Currently0 (1 standard drink = 0.6 oz pure alcohol)Estimated Date of GujdhtojHqurlqpzZme65/07/2025Based on UltrasoundSex and Gender InformationValueDate RecordedSex Assigned at BirthNot on fileLegal TbxRaqazr80/07/2024 2:18 PM EDTGender IdentityNot on fileSexual OrientationNot on filedocumented as of this encounter Plan of Treatment DateTypeDepartmentCare Team (Latest Contact Info)Ddnjzkkvohf52/19/2026 8:30 AM ESTProcedure Visit [facility] Connie WAREGYN [address] [facility] [place] [address] Ishaan Marcum DO [address] [place] [address] documented as of this encounter Procedures Procedure NamePriorityDate/TimeAssociated DiagnosisCommentsUS OB BPP W NON-WKZOEI9306/11/2025 3:59 PM EST documented in this encounter Results * US OB BPP W NON-STRESS (06/11/2025 3:59 PM EST)Anatomical Region LateralityModalityOtherSpecimen (Source)Anatomical Location / Laterality Collection Method / VolumeCollection TimeReceived Time06/11/2025 3:59 PM EST Narrative 06/11/2025 4:01 PM EST [facility] ?[address] ? [place], [facility]11 ? Ultrasound Report ? Signed ? Patient: SHEFALI,CHRIST L ?MR#: [id number] ?? : 2000 ?Acct:[id number] ?? Age/Sex: 25 / F ?ADM Date: 06/11/25 ?? Loc: US ? Attending Dr: Ishaan Marcum D.O. ? Ordering Physician: Ishaan Marcum D.O. ?? Date of Service: 06/11/25 ?? Procedure(s): US OB BPP w non-stress ?? Accession Number(s): [id number] ? cc: Ishaan Marcum D.O.; Physician,Non-Staff M.D. ? [facility] ? [address] ? [place] [address] ? Patient Name: ?? CHRIST MEEHAN ? MRN: [facility]:[id number] ? date: 2000 ?Sex: F ?? Assigned Patient Location: US ?? Current Patient Location: ? Accession/Order Number: [id number] ?? Exam Date: 06/11/2025 ??14:00 ?Report Date: 06/11/2025 ??15:59 ? At the request of: ?? ISHAAN ??VIVIAN ??DO ? Procedure: ??US OB BPP w non-stress ? Ultrasound biophysical profile ? INDICATION: -induced hypertension ? COMPARISON: 06/04/2025 ? FINDINGS/IMPRESSION: Fetus is cephalic position. ?? heart rate 147 bpm. ? CHAI 14.2 cm. ??Biophysical profile 8/8 ? Impression dictated by: Jose Manuel Guan M.D. ??06/11/2025 3:59 PM ? Dictation Location: RADIO-PC-29 ? Electronically authenticated by: [id number] ??Y ?? Date: 06/11/2025 ??15:59 ? Dictated By: ?Jose Manuel Guan M.D. ? Signed By: ?11/26/25 1601 ? DD/ 1559 ? TD/TT: ? College Admissions Counselor: Procedure Note Radiology, Radiologist, - 06/16/2025 [place] [address] Ultrasound Report Signed Patient: CHRIST MEEHAN LMR#: [id number] : 2000Acct:[id number] Age/Sex: 25 / FADM Date: 06/11/25 Loc: US Attending Dr: Ishana Marcum D.O. Ordering Physician: Ishaan Marcum D.O. Date of Service: 06/11/25 Procedure(s): US OB BPP w non-stress Accession Number(s): [id number] cc: Ishaan Marcum D.O.; Physician,Non-Staff [place] [address] Patient Name: CHRIST MEEHAN MRN: [id number] date: 2000 Sex: F Assigned Patient Location: US Current Patient Location: Accession/Order Number: [id number] Exam Date: 06/11/2025 14:00 Report Date: 06/11/2025 15:59 At the request of: ISHAAN MARCUM DO Procedure: US OB BPP w non-stress Ultrasound biophysical profile INDICATION: -induced hypertension COMPARISON: 06/04/2025 FINDINGS/IMPRESSION: Fetus is cephalic position. heart rate 147bpm. CHAI 14.2 cm. Biophysical profile 02/21 Impression dictated by: Jose Manuel Guan M.D. 06/11/2025 3:59 PM Dictation Location: [place] [address] Electronically authenticated by: [id number] Y Date: 5:59 Dictated By: Jose Manuel Guan M.D. Signed By:06/11/25 1600 DD/ 1559 TD/TT: College Admissions Counselor: Authorizing ProviderResult TypeResult StatusCorechristi Marcum DOCLINISYNC IMAGINGFinal Result documented in this encounter Visit Diagnoses Not on filedocumented in this encounter Care Teams Team MemberRelationshipSpecialtyStart DateEnd Date Josr Martinez MD [address] [facility], [facility] [address] [place] [address] PCP - GeneralFamily Medicine11/08/24documented as of this encounter
--- OUTSIDE RECORDS SUMMARY | 2025-06-17 23:11 | XMS_ITS | Encounter Summary ---
Author Organization [facility] Address [address] [facility] [place] [address] Care Team Providers Care Distributor Publications Name Role Phone Josr Martinez MD Primary Care Provider [phone] Encounter Details DateTypeDepartmentCare Team (Latest Contact Info)Asfscwlbrjy25/19/2025amboo flowsheet LAISHA MACKEY [address] [place] [address] [place] [address] Lissa Steward PA [address] [facility] [address] [place], [place] [address] Social History Tobacco UseTypesPacks/DayYears UsedDateSmoking Tobacco: NeverSmokeless Tobacco: Current Comments:Vape Alcohol UseStandard Drinks/WeekCommentsNot Currently0 (1 standard drink = 0.6 oz pure alcohol)Estimated Date of OimvmdbqJojrfoscBxh38/07/2025Based on UltrasoundSex and Gender InformationValueDate RecordedSex Assigned at BirthNot on fileLegal FrmUnvnus68/07/2024 2:18 PM EDTGender IdentityNot on fileSexual OrientationNot on filedocumented as of this encounter Plan of Treatment DateTypeDepartmentCare Team (Latest Contact Info)Yvqeswjjtnb11/19/2026 8:30 AM ESTProcedure Visit NOMLatisha MACKEY [address] [place] [address] [place] [address] Edy Marcum DO [address] [facility] [address], [facility]11 documented as of this encounter Visit Diagnoses Not on filedocumented in this encounter Care Teams Team MemberRelationshipSpecialtyStart DateEnd Date Josr Martinez MD [address] [facility], [facility] [address] [place] [address] PCP - GeneralFamily Medicine11/08/24documented as of this encounter
--- OUTSIDE RECORDS SUMMARY | 2025-06-17 23:11 | XMS_ITS | Encounter Summary ---
Author Organization [facility] Address [address] [facility] [place] [address] Care Team Providers Care Demurrage Man Name Role Phone Mecca Leone MD Primary Care Provider [phone] Encounter Details DateTypeDepartmentCare Team (Latest Contact Info)Dgdaiuxrvip18/19/2025linisync Result Encounter [facility]S External Department Unsolicited Ishaan Marcum, DO [address], [facility]11 Social History Tobacco UseTypesPacks/DayYears UsedDateSmoking Tobacco: NeverSmokeless Tobacco: Current Comments:Vape Alcohol UseStandard Drinks/WeekCommentsNot Currently0 (1 standard drink = 0.6 oz pure alcohol)Estimated Date of FqwwmczdMnbfyihvOig96/07/2025Based on UltrasoundSex and Gender InformationValueDate RecordedSex Assigned at BirthNot on fileLegal WtrTfdwph43/07/2024 2:18 PM EDTGender IdentityNot on fileSexual OrientationNot on filedocumented as of this encounter Plan of Treatment DateTypeDepartmentCare Team (Latest Contact Info)Xzevurgqucq87/19/2026 8:30 AM ESTProcedure Visit [facility] Connie WAREGYN [address] [facility] [place] [address] Ishaan Marcum DO [address] [place] [address] documented as of this encounter Procedures Procedure NamePriorityDate/TimeAssociated DiagnosisCommentsUS OB BPP W NON-EKLMCQ7306/04/2025 11:42 PM EST documented in this encounter Results * US OB BPP W NON-STRESS (06/04/2025 11:42 PM EST)Anatomical Region LateralityModalityOtherSpecimen (Source)Anatomical Location / Laterality Collection Method / VolumeCollection TimeReceived Time06/04/2025 11:42 PM EST Narrative 06/04/2025 11:44 PM EST [facility] ?[address] ? [place], [facility]11 ? Ultrasound Report ? Signed ? Patient: SHEFALI,CHRIST L ?MR#: [id number] ?? : 2000 ?Acct:[id number] ?? Age/Sex: 25 / F ?ADM Date: ?? Loc: [facility] ??253-1 ? Attending Dr: Ishaan Marcum D.O. ? Ordering Physician: Ishaan Marcum D.O. ?? Date of Service: 06/04/25 ?? Procedure(s): US OB BPP w non-stress ?? Accession Number(s): [id number] ? cc: Ihsaan Marcum D.O.; MECCA LEONE ? [facility] ? [address] ? [place] [address] ? Patient Name: ?? CHRIST MEEHAN ? MRN: [facility]:[id number] ? date: 2000 ?Sex: F ?? Assigned Patient Location: [facility] ?? Current Patient Location: [facility] ?? Accession/Order Number: [id number] ?? Exam Date: 06/04/2025 ??17:30 ?Report Date: [...] Dictation Location: RADIO-PC-20 ? Electronically authenticated by: [id number] ??Y ?? Date: 06/04/2025 ??23:42 ? Dictated By: ?Giovanny Bejarano D.O. ? Signed By: ?06/04/25 2344 ? DD/ 2342 ? TD/TT: ? Supervisor Orchard: Procedure Note Radiology, Radiologist, - 06/05/2025 [place] [address] Ultrasound Report Signed Patient: CHRIST MEEHAN LMR#: [id number] : 2000Acct:[id number] Age/Sex: FADM Date: Loc: [facility] 253-[address]: Ishaan Marcum D.O. Ordering Physician: Ishaan Marcum D.O. Date of Service: 06/04/25 Procedure(s): US OB BPP w non-stress Accession Number(s): [id number] cc: Ishaan Marcum D.O.; MECCA LEONE The [place] [address] Patient Name: CHRIST MEEHAN MRN: [id number] date: 2000 Sex: F Assigned Patient Location: [facility] Current Patient Location: [facility] Accession/Order Number: [id number] Exam Date: 06/04/2025 17:30 Report Date: 06/04/2025 [...] Adequate ultrasound biophysical profile Impression dictated by: Giovanyn Bejarano M.D. 06/04/2025 11:42 PM Dictation Location: [place] [address] Electronically authenticated by: [id number] Y Date: 3:42 Dictated By: Giovanny Bejarano D.O. Signed By:06/04/252343 DD/ 41 TD/TT: Supervisor Orchard: Authorizing ProviderResult TypeResult StatusCorey Jossue DOCLINISYNC IMAGINGFinal Result documented in this encounter Visit Diagnoses Not on filedocumented in this encounter Care Teams Team MemberRelationshipSpecialtyStart DateEnd Date Mecca Leone MD [address] [facility], [facility] [address] [place] [address] PCP - GeneralFamily Medicine11/08/24documented as of this encounter
--- OUTSIDE RECORDS SUMMARY | 2025-06-17 23:11 | XMS_ITS | Clinical Summary ---
Author Organization [facility] Address [address] [place] [address] Phone Care Team Providers Care Shake Out Worker Name Role Phone Josr Martinez PA-C Primary Care Provider [phone] Allergies No known active allergies Medications MedicationSigDispense [...] Additional Information Patient not taking.Reported on 11/19/2024 5-DBHI-OWZEZ ACID-OM3 ORAL Take by mouth.Active Active Problems ProblemNoted DateDiagnosed DateLow blood sugar03/21/2023Low vitamin B12 level 03/21/2023Vitamin D ylfogavobyhvo85/05/2023Elevated hprevlkeo76/05/2023 Wqkoaqkbybbrb31/05/2023remenstrual /05/2023remenstrual syndrome 03/21/2023eneralized anxiety ngykdwiq62/14/2023 Family History Medical HistoryRelationNameCommentsHypertensionFatherDiabetesMaternal GrandfatherAlzheimer's diseaseMaternal GrandmotherDiabetesPaternal Grandfather Heart diseasePaternal GrandfatherRelationNameStatusCommentsFatherMaternal GrandfatherMaternal GrandmotherPaternal Grandfather Social History Tobacco UseTypesPacks/DayYears UsedDateSmoking Tobacco: NeverSmokeless Tobacco: Never Tobacco Cessation:Counseling Given: Not Answered PHQ-2AnswerDate RecordedPatient Health Questionnaire-2 Chqvy791 CommentsUnknownSex and Gender InformationValueDate RecordedSex Assigned at Ypzjli5301/09/2024 2:41 PM EDTLegal PdrUvtoqq84/25/2022 10:21 PM ESTGender BzgvncrwRgqxfp37/25/2024 2:41 PM EDTSexual OrientationNot on file Last Filed Vital Signs Vital SignReadingTime TakenCommentsBlood Mvaiamfj629/78011/19/2024 7:27 AM EDT Zsvkj922111/19/2024 7:27 AM FUQUvhrwdbvpwt00.6 ??C (97.8 ??F)09/18/2024 3:27 PM ESTRespiratory Pbgk707409/18/2024 3:27 PM ESTOxygen Qflveaviuj79%11/19/2024 7:27 AM EDTInhaled Oxygen Concentration--Pmdpum16.3 kg (144 lb)11/19/2024 7:27 AM EDT Npxnoc589.8 cm (5' 2.5 )11/19/2024 7:27 AM EDTBody Mass Index25.9211/19/2024 7:27 AM EDT Plan of Treatment DateTypeDepartmentCare Team (Latest Contact Info)Ltwpfjbhnsr62/07/2026 8:00 AM EDTOffice Visit [facility] [address] [place] [address] Josr Martinez PA-C [address] [facility], [address] [place] [address] Health MaintenanceDue DateLast DoneCommentsHIV Fvnedrxej1998Lipid Panel 1998MMR Vaccines (1 of 1 - Standard series)1999Hepatitis C Screening 01/24/2016Hepatitis B Vaccines (1 of 3 - 19+ 3-dose series)2017HPV/Cotest 2019DTaP/Tdap/Td Vaccines (1 - Tdap)01/24/2020HPV Vaccines (1 - 3-dose standard series)2025Influenza Vaccine (#1)5COVID-19 Vaccine (1 - season)5Yearly Adult Ofmzoigw71/26/41778508/10/2023, 07/27/2022, 09/25/2020ervical Cancer Pwtdgvmar77/25/2027Pap Smear7108/10/2023, 07/29/2021Zoster Vaccines (1 of 2)01/24/2048HIB VaccinesAged [...] Type:Not on file Address: [address] Care Teams Team MemberRelationshipSpecialtyStart DateEnd Josr Moran PA-C [address] [facility], [place] [address] PCP - GeneralFamily Medicine11/24/23
--- OUTSIDE RECORDS SUMMARY | 2025-06-17 23:11 | XMS_ITS | Encounter Summary ---
Author Organization [facility] Address [address] [facility] [place] [address] Care Team Providers Care Thrill Performer Name Role Phone Josr Martinez MD Primary Care Provider [phone] Encounter Details DateTypeDepartmentCare Team (Latest Contact Info)Mcvhfuqsfki82/19/2025linisync Result Encounter NOMS External Department Unsolicited Edy Marcum, DO [address], [facility]11 Social History Tobacco UseTypesPacks/DayYears UsedDateSmoking Tobacco: NeverSmokeless Tobacco: Current Comments:Vape Alcohol UseStandard Drinks/WeekCommentsNot Currently0 (1 standard drink = 0.6 oz pure alcohol)Estimated Date of NlszeeidYdxjjhynNjk81/07/2025Based on UltrasoundSex and Gender InformationValueDate RecordedSex Assigned at BirthNot on fileLegal MdoXeasbi75/07/2024 2:18 PM EDTGender IdentityNot on fileSexual OrientationNot on filedocumented as of this encounter Plan of Treatment DateTypeDepartmentCare Team (Latest Contact Info)Jzdspwtsehc39/19/2026 8:30 AM ESTProcedure Visit [facility] Connie [place] [address] [facility] [place] [address] Edy Marcum DO [address] [place] [address] documented as of this encounter Procedures Procedure NamePriorityDate/TimeAssociated DiagnosisCommentsTBH CREATININERoutine 06/04/2025 4:53 PM EST SRMCOH PROTHROMBIN TIME INR W/O WXVUMrrwycl70/19/2025 4:53 PM EST CCF ZZVBeenxws71/19/2025 4:53 PM EST [facility]CF ACCTXqdsrjx29/19/2025 4:53 PM EST [facility] SJRQntzzyw13/19/2025 4:53 PM EST ALL URIC NZULRfdbpaf94/19/2025 4:53 PM EST ALL VSKAbabxxu45/19/2025 4:53 PM EST ALL CBC WITH AUTO QKGZAisqnkz62/19/2025 4:53 PM EST ALL DFGCudeijl95/19/2025 4:53 PM EST TBH URINE T PROTEIN CREAT EGGIWDngkxnd74/19/2025 4:35 PM EST documented in this encounter [...] Jossue DOCLINISYNCFinal Result Performing OrganizationAddressCity/State/ZIP CodePhone Number [facility]YFORMERLY [facility] * (ABNORMAL) ALL CBC WITH AUTO DIFF (06/04/2025 4:53 PM EST)ComponentValueRef RangeTest MethodAnalysis TimePerformed AtPathologist SignatureTBH WBC11.2(H) 4.0 - 11.0 10 3/uLTBHTBH RBC3.78(L)4.20 - 5.40 10 6/uLTBHTBH HGB10.8(L)12.0 - 16.0 g/dLTBHTBH HCT32.8(L)36.0 - 48.0 %TBHTBH MCV86.881.0 - 99.0 fLTBHTBH MCH 28.626.7 - 34.0 pgTBHTBH MCHC32.929.9 - 35.2 g/dLTBHTBH RDW12.111.0 - 15.0 % TBHTBH JQO981513 - 450 10 3/uLTBHTBH MPV10.79.5 - 13.5 [...] Jossue DOCLINISYNCFinal Result Performing OrganizationAddressCity/State/ZIP CodePhone Number [facility] * (ABNORMAL) ALL LDH (06/04/2025 4:53 PM EST)ComponentValueRef RangeTest Method Analysis TimePerformed AtPathologist SignatureLACTATE HTYNVRXJMHESL149(H)81 - 234 U/LTBHSpecimen (Source)Anatomical Location / LateralityCollection Method / VolumeCollection TimeReceived Time06/04/2025 4:53 PM EST06/04/2025 4:58 PM EST Narrative CLINISYNC - 06/04/2025 5:14 PM EST Authorizing ProviderResult TypeResult StatusCorey Jossue DOCLINISYNCFinal Result Performing OrganizationAddressCity/State/ZIP CodePhone Number [facility] * CCF ALT (06/04/2025 4:53 PM EST)ComponentValueRef RangeTest MethodAnalysis TimePerformed AtPathologist SignatureALANINE XPXYSZUMWKLODFRT8623 - 59 U/LTBH Specimen (Source)Anatomical Location / LateralityCollection Method / Volume Collection TimeReceived Time06/04/2025 4:53 PM EST06/04/2025 4:58 PM EST Narrative CLINISYNC - 06/04/2025 5:14 PM EST Authorizing ProviderResult TypeResult StatusCorey Jossue DOCLINISYNCFinal Result Performing OrganizationAddressCity/State/ZIP CodePhone Number [facility] * [facility] AST (06/04/2025 4:53 PM EST)ComponentValueRef RangeTest MethodAnalysis TimePerformed AtPathologist SignatureASPARTATE AMINO TJGEQMBHUVT2541 - 37 U/L TBHSpecimen (Source)Anatomical Location / [...] AtPathologist SignatureCREATININE0.690.55 - 1.02 mg/dL TBHTBH EGFR-AF CAMBODIAN>60>=60 mL/min/1.73m 2TBHTBH EGFR-NON AF CAMBODIAN>60 >=60 mL/min/1.73m 2TBHSpecimen (Source)Anatomical Location / Laterality [...] AtPathologist SignatureTOTAL PROTEIN URINE RANDOM<6.0<=11.9 mg/dLTBHCREATININE URINE TRQILI64.1420.00 - 300.00 mg/dLTBHSpecimen (Source)Anatomical Location / LateralityCollection Method / VolumeCollection TimeReceived Time06/04/2025 4:35 PM EST06/04/2025 4:58 PM EST Narrative CLINISYNC - 06/04/2025 5:12 PM EST Authorizing ProviderResult TypeResult StatusCorey Jossue DOCLINISYNCFinal Result Performing OrganizationAddressCity/State/ZIP CodePhone Number CLINISYNC TBH documented in this encounter Visit Diagnoses Not on filedocumented in this encounter Care Teams Team MemberRelationshipSpecialtyStart DateEnd Josr Martinez MD [address] [facility], [facility] [address] [place] [address] PCP - GeneralFamily Medicine11/08/24documented as of this encounter
--- OUTSIDE RECORDS SUMMARY | 2025-06-17 23:11 | XMS_ITS | Clinical Summary ---
Author Organization [facility] Address [address] [facility] [place] [address] Care Team Providers Care Cartography Supervisor Name Role Phone Josr Martinez MD Primary Care Provider [phone] Allergies No known active allergies Medications MedicationSigDispense QuantityRefillsLast FilledStart DateEnd DateStatus magnesium oxide (Mag-Ox) 400 MG tablet Indications:Leg cramps in ([facility])Take 1 tablet (400 mg) by mouth Daily 30 tablet 6004/09/883383/6Active calcium carbonate (Os-Barry) 1250 (500 Ca) MG chewable tablet Chew 1 tablet DailyActive Encounters DateTypeDepartmentCare SgvyIipxcoofgji91/26/2025linisync Result Encounter NOMS External Department Unsolicited Ishaan Marcum DO 06/09/2025 11:10 AM ESTRoutine [facility] [place] [address] Ishaan Marcum DO Third trimester ([facility]); 38 weeks gestation of ([facility])5Bamboo [place] [address] Ishaan Marcum DO 06/04/2025 3:20 [place] [address] Lissa Steward PA 37 weeks gestation of ([facility]); Third trimester ([facility]); induced hypertension, antepartum ([facility])06/04/2025linisync Result Encounter NOMS External Department Unsolicited Ishaan Marcum, DO 06/04/2025linisync Result Encounter NOMS External Department Unsolicited JossueErich mezay, DO 06/04/2025amboo flowsheet [facility] [place] [facility] [address] [place] [address] Lissa Steward PA 05/29/20251680Lmdszd43/10/2025 4:00 PM ESTRoutine [facility] [address] [place] [address] Lissa Steward PA Third trimester ([facility]); 36 weeks gestation of ([facility])05/26/2025linisync Result Encounter NOMS External Department Unsolicited Lissa Steward PA 05/26/2025amboo flowsheet [facility] Connie MACKEY [address] [place] [address] Lissa Steward PA 05/25/20259853Ynipfg28/04/2025 8:50 AM ESTRoutine NOMLatisha Hou [address] [place] [address] Lissa Steward PA Third trimester ([facility]); 35 weeks gestation of ([facility])05/20/2025amboo flowsheet [facility] Connie Hou [address] [place] [address] Lissa Steward PA 05/13/20255517Gmhkmq92/20/2025 8:40 AM EDTRoutine N[place]Latisha [place] [address] Ishaan Marcum, 33 weeks gestation of ([facility]); Third trimester ([facility]); Leg cramps in ([facility])05/05/2025amboo flowsheet [facility] Connie Hou [address] [facility] [place] [address] Ishaan Marcum, DO 5Clinisync Result Encounter NOMS External Department Unsolicited Ishaan Marcum, 04/30/2025Telephone [facility] [address] [place] [address] Ishaan Marcum, DO 04/28/20250976Twfqwh66/08/2025 3:10 PM EDTRoutine [facility] [address] [place] [address] Cristin Beckett, CELIO Third trimester ([facility]); 30 weeks gestation of ([facility])04/23/2025amboo flowsheet [facility] [address] [place] [address] Cristin Beckett NP 04/16/20251694Jcinbw97/24/2025 3:50 PM EDTRoutine [facility] [address] [place] [address] [place] [address] Ishaan Marcum, Third trimester ([facility]); 29 weeks gestation of ([facility]); Leg cramps in ([facility])04/09/2025 3:00 PM EDTAncillary Procedure [facility] Connie [place] [address] [place] [address] Size of fetus inconsistent with dates in second trimester ([facility])04/02/2025 Travelfrom Last 3 Months Family History Medical HistoryRelationNameCommentsHypertensionFatherMarkDiabetesMaternal GrandfatherDavidMigrainesMotherChristinaDiabetesPaternal GrandfatherArthurHeart failurePaternal GrandfatherArthurHypertensionPaternal GrandfatherArthurRelation NameStatusCommentsFatherMarkAliveMaternal GrandfatherDavidAliveMotherChristina AlivePaternal GrandfatherArthurAlive Social History Tobacco UseTypesPacks/DayYears UsedDateSmoking Tobacco: NeverSmokeless Tobacco: Current Tobacco Cessation:Ready to Q uit: Not Asked; Counseling Given: Not Answered Comments:Vape Alcohol UseStandard Drinks/WeekCommentsNot Currently0 (1 standard drink = 0.6 oz pure alcohol)Estimated Date of GosamevoVdlmeythHkx06/07/2025Based on UltrasoundSex and Gender InformationValueDate RecordedSex Assigned at BirthNot on fileLegal KdwFvdrpo87/07/2024 2:18 PM EDTGender IdentityNot on fileSexual OrientationNot on file Last Filed Vital Signs Vital SignReadingTime TakenCommentsBlood Bpqnzxeh970/7006/09/2025 11:37 AM EST Pulse--Temperature--Respiratory Rate--Oxygen Saturation--Inhaled Oxygen Concentration--Ussksq23.6 kg (182 lb)06/09/2025 11:37 AM HCJYxsprq419.9 cm (5' 1 )11/08/2024 10:59 AM EDTBody Mass Index34.39011/08/2024 10:59 AM EDT Plan of Treatment DateTypeDepartmentCare Team (Latest Contact Info)Faoedvmpgpo24/19/2026 8:30 AM ESTProcedure Visit [facility] [address] [place] [address] Ishaan Marcum DO [address] [place], [place] [address] Procedures Procedure NamePriorityDate/TimeAssociated DiagnosisCommentsUS OB BPP W NON-URGUHO4806/11/2025 3:59 PM EST POCT URINALYSIS QNPVJZDVGaunssr77/24/2025 11:37 AM EST 38 weeks gestation of ([facility]) US OB BPP W NON-KLRAKP1406/04/2025 11:42 PM EST CCF XENONicmifr12/19/2025 4:53 PM EST SRMCOH PROTHROMBIN TIME INR W/O WZYRSryhavi31/19/2025 4:53 PM EST ALL CBC WITH AUTO SWKKFjihhse84/19/2025 4:53 PM EST ALL BJRAkexhaa78/19/2025 4:53 PM EST CCF BHUKzrwalx70/19/2025 4:53 PM EST CCF AISWnjbvzt24/19/2025 4:53 PM EST ALL URIC JKKPWcpisnf41/19/2025 4:53 PM EST TBH OGZDGUJDGEYolxsrw33/19/2025 4:53 PM EST ALL WTXGmwpprq06/19/2025 4:53 PM EST TBH URINE T PROTEIN CREAT JLHOTZhrekqw45/19/2025 4:35 PM EST POCT URINALYSIS JBDOKEEARhngqji63/19/2025 3:33 PM EST 37 weeks gestation of ([facility]) Third trimester ([facility]) POCT URINALYSIS RYSEAAQDEiinwqr01/10/2025 4:19 PM EST 36 weeks gestation of ([facility]) STREP GP B TWFWbpxpuv16/10/2025 4:00 PM EST POCT URINALYSIS FFQAEUOILnkjgeo10/04/2025 9:05 AM EST 35 weeks gestation of ([facility]) POCT URINALYSIS JJHLDDHFQrwzlin10/20/2025 8:46 AM EDT 33 weeks gestation of ([facility]) Third trimester ([facility]) CCF JEJPwqanrc44/15/2025 11:12 AM EDT CCF CYAHhavzll98/15/2025 11:12 AM EDT ALL URIC PYYVZllsqzu11/15/2025 11:12 AM EDT TBH EWBVXTVDCONayogbj29/15/2025 11:12 AM EDT ALL GKKIvarxuu59/15/2025 11:12 AM EDT ALL CBC WITH AUTO BJVTBxbcdbt76/15/2025 11:12 AM EDT MHPT TKVGYZFGIQTpzkpjl23/15/2025 11:12 AM EDT CCF DXZDLstsdnv12/15/2025 11:12 AM EDT SRMCOH PROTHROMBIN TIME INR W/O ADPLXhrhxcm52/15/2025 11:12 AM EDT TBH URINE T PROTEIN CREAT KCFKKUrdoqoz85/15/2025 10:40 AM EDT POCT URINALYSIS YLQWMKFOLfmhoni50/08/2025 3:24 PM EDT Third trimester ([facility]) POCT URINALYSIS EDCQYPQVTnicbyt07/24/2025 3:39 PM EDT Third trimester ([facility]) US OB FOLLOW UP TRANSABDOMINAL QQDUDLWLWeecifg69/24/2025 3:15 PM EDT Size of fetus inconsistent with dates in second trimester ([facility]) from Last 3 Months Results * US OB BPP W NON-STRESS (06/11/2025 3:59 PM EST) Only the most recent of2 resultswithin the time period is included. Anatomical RegionLateralityModalityOtherSpecimen (Source)Anatomical Location / LateralityCollection Method / VolumeCollection TimeReceived Time06/11/2025 3:59 PM EST Narrative 06/11/2025 4:01 PM EST [facility] ?[address] ? [place] [address] ? Ultrasound Report ? Signed ? Patient: SHEFALI,CHRIST L ?MR#: [id number] ?? : 2000 ?Acct:[id number] ?? Age/Sex: 25 / F ?ADM Date: //25 ?? Loc: US ? Attending Dr: Ishaan Marcum D.O. ? Ordering Physician: Ishaan Marcum D.O. ?? Date of Service: 06/11/25 ?? Procedure(s): US OB BPP w non-stress ?? Accession Number(s): [id number] ? cc: Ishaan Marcum D.O.; Physician,Non-Staff [place] ? [facility] ? [address] ? [place] [address] ? Patient Name: ?? CHRIST MEEHAN ? MRN: [facility]:[id number] ? date: 2000 ?Sex: F ?? Assigned Patient Location: US ?? Current Patient Location: ? Accession/Order Number: [id number] ?? Exam Date: 06/11/2025 ??14:00 ?Report Date: 06/11/2025 ??15:59 ? At the request of: ?? ISHAAN ??JOSSUE ??DO ? Procedure: ??US OB BPP w non-stress ? Ultrasound biophysical profile ? INDICATION: -induced hypertension ? COMPARISON: 06/04/2025 ? FINDINGS/IMPRESSION: Fetus is cephalic position. ?? heart rate 147 bpm. ? CHAI 14.2 cm. ??Biophysical profile 02/21 ? Impression dictated by: Jose Manuel Guan M.D. ??06/11/2025 3:59 PM ? Dictation Location: [facility]--29 ? Electronically authenticated by: [id number] ??Y ?? Date: 06/11/2025 ??15:59 ? Dictated By: ?Jose Manuel Guan M.D. ? Signed By: ?06/11/25 1601 ? DD/ 1559 ? TD/TT: ? Mail Clerks Supervisor: Procedure Note Radiology, Radiologist, MD - 06/16/2025 [place] [address] Ultrasound Report Signed Patient: CHRIST MEEHAN LMR#: [id number] : 2000Acct:[id number] Age/Sex: 25 / FADM Date: 06/11/25 Loc: US Attending Dr: Ishaan Marcum D.O. Ordering Physician: Ishaan Marcum D.O. Date of Service: 06/11/25 Procedure(s): US OB BPP w non-stress Accession Number(s): [id number] cc: Ishaan Marcum D.O.; Physician,Non-Staff [place] [address] Patient Name: CHRIST MEEHAN MRN: [facility]:[id number] date: 2000 Sex: F Assigned Patient Location: US Current Patient Location: Accession/Order Number: [id number] Exam Date: 06/11/2025 14:00 Report Date: 06/11/2025 15:59 At the request of: ISHAAN MARCUM DO Procedure: US OB BPP w non-stress Ultrasound biophysical profile INDICATION: -induced hypertension COMPARISON: 06/04/2025 FINDINGS/IMPRESSION: Fetus is cephalic position. heart rate 147bpm. CHAI 14.2 cm. Biophysical profile 02/21 Impression dictated by: Jose Manuel Guan M.D. 06/11/2025 3:59 PM Dictation Location: [place] [address] Electronically authenticated by: [id number] Y Date: 5:59 Dictated By: Jose Manuel Guan M.D. Signed By:06/11/25 1601 DD/ 1559 TD/TT: Mail Clerks Supervisor: Authorizing ProviderResult TypeResult StatusCorey Jossue DOCLINISYNC IMAGINGFinal Result * POCT urinalysis dipstick manually resulted (06/09/2025 [...] Location / LateralityCollection Method / VolumeCollection TimeReceived DhasNraxe02/24/2025 11:37 AM EST Narrative Authorizing ProviderResult TypeResult StatusCorey Jossue DOPOINT OF CARE TEST ENTER/EDIT ORDERABLESFinal Result * TB CREATININE (06/04/2025 4:53 PM EST) Only the most recent of2 resultswithin the time period is included. ComponentValueRef RangeTest MethodAnalysis TimePerformed AtPathologist Signature CREATININE0.690.55 - 1.02 mg/dLTBHTBH EGFR-AF [facility]>60>=60 mL/min/1.73m 2TBH TBH EGFR-NON AF [facility]>60>=60 mL/min/1.73m 2TBHSpecimen (Source)Anatomical Location / LateralityCollection Method / VolumeCollection TimeReceived Time 06/04/2025 4:53 PM EST06/04/2025 4:58 PM EST Narrative CLINISYNC - 06/04/2025 5:14 PM EST Authorizing ProviderResult TypeResult StatusCorey Jossue DOCLINISYNCFinal Result Performing OrganizationAddressCity/State/ZIP CodePhone Number CLINISYNC [facility] * SRMCOH PROTHROMBIN TIME INR W/O [...] OrganizationAddressCity/State/ZIP CodePhone Number CLINISYNC TB * CCF AST (06/04/2025 4:53 PM EST) Only the most recent of2 resultswithin the time period is included. ComponentValueRef RangeTest MethodAnalysis TimePerformed AtPathologist Signature ASPARTATE AMINO ESQJOYXHIKK2678 - 37 U/LTBHSpecimen (Source)Anatomical Location / LateralityCollection [...] ComponentValueRef RangeTest MethodAnalysis TimePerformed AtPathologist Signature ALANINE GZLHMOCWFZWRPKFM4226 - 59 U/LTBHSpecimen (Source)Anatomical Location / LateralityCollection [...] Jossue DOCLINISYNCFinal Result Performing OrganizationAddressty/State/ZIP CodePhone Number [facility] * (ABNORMAL) ALL LDH (06/04/2025 4:53 PM EST)ComponentValueRef RangeTest Method Analysis TimePerformed AtPathologist SignatureLACTATE FVGIHUPLZFOBB790(H)81 - 234 U/LTBHSpecimen (Source)Anatomical Location / LateralityCollection Method / VolumeCollection TimeReceived Time06/04/2025 4:53 PM EST06/04/2025 4:58 PM EST Narrative CLINISYNC - 06/04/2025 5:14 PM EST Authorizing ProviderResult TypeResult StatusCorey Jossue DOCLINISYNCFinal Result Performing OrganizationAddExcela Frick Hospitalty/State/ZIP CodePhone Number CLINISYNC TB * (ABNORMAL) ALL [...] - 35.2 g/dLTBHTBH RDW12.111.0 - 15.0 %TBHTBH [id number] - 450 10 3/uLTBHTBH MPV10.79.5 - 13.5 [...] DOCLINISYNCFinal Result Performing OrganizationAddressCity/State/ZIP CodePhone Number CLINISYNC [facility] * (ABNORMAL) ALL BUN (06/04/2025 4:53 [...] Jossue DOCLINISYNCFinal Result Performing OrganizationAddressty/State/ZIP CodePhone Number [facility] * TB URINE T PROTEIN CREAT RATIO (06/04/2025 4:35 PM EST) Only the most recent of2 resultswithin the time period is included. ComponentValueRef RangeTest MethodAnalysis TimePerformed AtPathologist Signature TOTAL PROTEIN URINE RANDOM<6.0<=11.9 mg/dLTBHCREATININE URINE WGUIIQ67.1420.00 - 300.00 mg/dLTBHSpecimen (Source)Anatomical Location / LateralityCollection Method / VolumeCollection TimeReceived Time06/04/2025 4:35 PM EST06/04/2025 4:58 PM EST Narrative CLINISYNC - 06/04/2025 5:12 PM EST Authorizing ProviderResult TypeResult StatusCorey Jossue DOCLINISYNCFinal Result Performing OrganizationAddressCity/State/ZIP CodePhone Number TRACE PANDYA * STREP GP B CHERYL (05/26/2025 4:00 [...] is noted.TBHSTREP GP B NAAPerformed at: - [facility] CenterTBHSTREP GP B [id number] [place], [place] [id number] STREP GP B NAALab Director: Kaden Merino PhD, Phone: [phone] (Source)Anatomical Location / LateralityCollection Method / VolumeCollection TimeReceived Time05/26/2025 4:00 PM EST05/26/2025 9:24 PM EST Narrative CLINISYNC - 05/29/2025 1:09 PM EST Authorizing ProviderResult TypeResult StatusAmy [facility] BLOOD ORDERABLES Final ResultPerforming OrganizationAddressCity/State/ZIP CodePhone Number [facility] * (ABNORMAL) MHPT FIBRINOGEN (04/30/2025 11:12 AM EDT)ComponentValueRef Range Test MethodAnalysis TimePerformed AtPathologist LytgfbbqqPQBNTSZXEL445(H)200 - 400 mg/dLTBHSpecimen (Source)Anatomical Location / LateralityCollection Method / VolumeCollection TimeReceived Time04/30/2025 11:12 AM EDT1 11:20 AM EDT Narrative CLINISYNC - 04/30/2025 12:12 PM EDT Authorizing ProviderResult TypeResult StatusCorey Jossue DOCLINISYNCFinal Result Performing OrganizationAddressCity/State/ZIP CodePhone Number [facility] * US OB follow up transabdominal approach [...] Adonay Peraza MD Authorizing ProviderResult TypeResult StatusAmy [facility] OB US PROCEDURES Final Result from Last 3 Months Insurance Care Teams Team MemberRelationshipSpecialtyStart DateEnd Josr Martinez MD [address] [facility], [place] [address] PCP - GeneralFami Medicine11/08/24
--- OUTSIDE RECORDS SUMMARY | 2025-06-17 23:11 | XMS_ITS | Encounter Summary ---
Author Organization [facility] Address [address] [facility] [place] [address] Care Team Providers Care Electric Motor Assembler And Tester Name Role Phone Josr Martinez MD Primary Care Provider Encounter Details DateTypeDepartmentCare Team (Latest Contact Info)Aqweqygnxpf88/24/2025Bamboo flowsheet LAISHA MACKEY [address] [place] [address] [place] [address] Edy Marcum DO [address] [place] [address] Dr [place], [place] [address] Social History Tobacco UseTypesPacks/DayYears UsedDateSmoking Tobacco: NeverSmokeless Tobacco: Current Comments:Vape Alcohol UseStandard Drinks/WeekCommentsNot Currently0 (1 standard drink = 0.6 oz pure alcohol)Estimated Date of IhoybtnfXgqbiiexXzw25/07/2025Based on UltrasoundSex and Gender InformationValueDate RecordedSex Assigned at BirthNot on fileLegal WgnAhupgf35/07/2024 2:18 PM EDTGender IdentityNot on fileSexual OrientationNot on filedocumented as of this encounter Plan of Treatment DateTypeDepartmentCare Team (Latest Contact Info)Myfnzwpwppc02/19/2026 8:30 AM ESTProcedure Visit LAISHA MACKEY [address] [place] [address] [place] [address] Edy Marcum DO [address] [place] [address] Amina [place], [facility]11 documented as of this encounter Visit Diagnoses Not on filedocumented in this encounter Care Teams Team MemberRelationshipSpecialtyStart DateEnd Date Josr Martinez MD [address] [facility], [place] [address] PCP - GeneralFamily Medicine11/08/24documented as of this encounter
[2025-06-18] VITALS (78 sets, daily range): BP systolic 94–147; BP diastolic 52–88; PULSE 60–100; TEMP 36.7
[2025-06-18] MEDS: OXYTOCIN/0.9 % SODIUM CHLORIDE 10 UNITS/500 ML PLAST..BAG 6 UNIT IV (00:07)
[2025-06-18] MEDS: 0.9 % SODIUM CHLORIDE 1,000 ML 125 ML IV ×3 (00:09→15:55)
[2025-06-18 00:10] LABS: Hematocrit 29.6 % (36.0-48.0); Hemoglobin 9.9 g/dL (12.0-16.0); Mean Corpuscular HGB Conc 33.4 g/dL (29.9-35.2); Mean Corpuscular Hemoglobin 28.1 pg (26.7-34.0); Mean Corpuscular Volume 84.1 fL (81.0-99.0); Platelet Count 291 10^3/uL (150-450); Red Blood Count 3.52 10^6/uL (4.20-5.40); White Blood Count 9.5 10^3/uL (4.0-11.0)
[2025-06-18 00:22] LABS: Cannabinoid Screen Urine NEGATIVE (NEGATIVE); Methamphetamines Screen Urine NEGATIVE (NEGATIVE); Tricyclic Antidepressant Urine NEGATIVE (NEGATIVE)
[2025-06-18] MEDS: OXYTOCIN/0.9 % SODIUM CHLORIDE 10 UNITS/500 ML PLAST..BAG 54 UNIT IV (14:44)
[2025-06-18] MEDS: ROPIVACAINE HCL/PF 400 MG/200 ML PREMIX 8 MG EPIDURAL (17:30)
[2025-06-18] MEDS: OXYTOCIN/0.9 % SODIUM CHLORIDE 10 UNITS/500 ML PLAST..BAG 60 UNIT IV (21:49)
[2025-06-19] VITALS (23 sets, daily range): BP systolic 106–142; BP diastolic 54–81; PULSE 77–120; TEMP 36.5–38.7
[2025-06-19] MEDS: 0.9 % SODIUM CHLORIDE 1,000 ML 125 ML IV (02:37)
[2025-06-19] MEDS: AMPICILLIN SODIUM 2,000 MG in 0.9 % SODIUM CHLORIDE 100 ML 200 MG IV (03:30)
[2025-06-19] MEDS: OXYTOCIN/0.9 % SODIUM CHLORIDE 10 UNITS/500 ML PLAST..BAG 60 UNIT IV (06:42)
[2025-06-19] MEDS: AMPICILLIN SODIUM 1,000 MG in 0.9 % SODIUM CHLORIDE 50 ML 100 MG IV ×2 (07:18→11:14)
[2025-06-19] MEDS: ACETAMINOPHEN 500 MG TABLET 1000 MG PO (08:02)
[2025-06-19] MEDS: OXYTOCIN/0.9 % SODIUM CHLORIDE 20 UNITS/1,000 ML PLAST..BAG 125 UNIT IV (08:50)
[2025-06-19] MEDS: CARBOPROST TROMETHAMINE 250 MCG/ML 1 ML VIAL IM (09:00)
[2025-06-19] MEDS: BENZOCAINE/MENTHOL 85 GRAM SPRAY BOTTLE 1 APPLIC TOPICAL (11:13)
[2025-06-19] MEDS: IBUPROFEN 600 MG TABLET PO ×2 (11:14→18:27)
[2025-06-20] VITALS (20 sets, daily range): BP systolic 106–135; BP diastolic 55–76; PULSE 71–95; TEMP 36.3–36.8
[2025-06-20] MEDS: IBUPROFEN 600 MG TABLET PO ×3 (05:34→23:04)
[2025-06-20 06:34] LABS: Immature Granulocytes Abs Auto 0.12 10^3/uL (0.00-0.03); Immature Granulocytes Pct Auto 0.6 % (0.0-0.5); Lymphocytes Absolute Auto 2.5 10^3/uL (1.2-3.8); Mean Corpuscular HGB Conc 33.0 g/dL (29.9-35.2); Mean Corpuscular Hemoglobin 28.2 pg (26.7-34.0); Mean Corpuscular Volume 85.4 fL (81.0-99.0); Platelet Count 187 10^3/uL (150-450); Red Blood Count 2.13 10^6/uL (4.20-5.40); White Blood Count 19.8 10^3/uL (4.0-11.0)
[2025-06-20 06:38] LABS: Hemoglobin 6.0 g/dL (12.0-16.0)
[2025-06-20 06:39] LABS: Hematocrit 18.2 % (36.0-48.0)
--- NOTE | 2025-06-20 07:33 | P.OBPN_ITS ---
OB - PN: Subj Subjective Patient comments: no complaints [place] status: doing well feeding status: exclusively Exam Constitutional Vital Signs, click to edit/add: Last Vital Signs Temp 98.3 F 06/20/25 06:00 Pulse 95 H 06/20/25 00:30 Resp 17 06/19/25 16:30 BP 125/65 06/20/25 00:30 O2 Del Method Room Air 06/20/25 00:30 Common normals: no apparent distress Exam limitations: altered mental status General appearance: cooperative, comfortable and well kempt Orientation/consciousness: Yes awake, Yes oriented to person, Yes oriented to place and Yes oriented to time HENMT Common normals: normocephalic Eye Common normals: EOMs intact bilaterally General eye: normal appearance of both eyes Neck & C-Spine Common normals: full ROM Lymph Lymphatic: no lymphadenopathy noted Chest Common normals: inspection of chest normal Respiratory Common normals: normal respiratory effort Effort & inspection: able to speak in complete sentences Auscultation: clear to auscultation bilaterally Cardio Common normals: regular rate and regular rhythm Rate: regular rate Rhythm: regular rhythm GI Common normals: Normal to inspection, nondistended, normoactive bowel sounds present Common normals: no CVA tenderness Back & Pelvis Common normals: no CVA tenderness Extremity Common normals: normal to inspection Neuro Common normals: oriented x3 Sensorium/orientation: awake, alert, oriented to person, oriented to place and oriented to time Results Labs Labs: Short CBC 06/20/25 Range/Units 06:24 WBC 19.8 H (4.0-11.0) 10^3/uL Hgb 6.0 L* D (12.0-16.0) g/dL Hct 18.2 L* (36.0-48.0) % Plt Count 187 (150-450) 10^3/uL OB - PN: A/P Plan - Vaginal Delivery day: 1 Plan: routine care Time Spent with Patient Time: Total time spent is greater than 50% in coordination of care (as documented) at patient's floor/unit and/or counseling patient: Total time spent with greater than 50% in coordination of care (as documented) at patient's floor/unit and/or counseling patient: less than 15 minutes
[2025-06-20] MEDS: 0.9 % SODIUM CHLORIDE 250 ML 10 ML IV ×2 (08:45→12:35)
--- NOTE | 2025-06-20 13:52 | PC.NURSE ---
Denies transfusion reaction symptoms, however complains of pain at IV site when blood is tranfusing
[2025-06-21] VITALS (7 sets, daily range): BP systolic 129–143; BP diastolic 65–84; PULSE 73–91; TEMP 36.3–36.7
--- NOTE | 2025-06-21 07:16 | PM.OBPN ---
OB - PN: Subj Subjective Patient comments: no complaints and pain well controlled [place] status: doing well Exam Constitutional Vital Signs, click to edit/add: Last Vital Signs Temp 97.9 F 06/21/25 01:05 Pulse 90 06/21/25 01:05 Resp 16 06/21/25 01:05 BP 129/73 06/21/25 01:05 O2 Del Method Room Air 06/21/25 01:05 Documenting provider has reviewed patient's vital signs: yes Common normals: no apparent distress Respiratory Common normals: normal respiratory effort and clear to auscultation bilaterally Cardio Common normals: regular rate and regular rhythm GI Common normals: Normal to inspection, nondistended, normoactive bowel sounds present Extremity Common normals: no clubbing, cyanosis or edema and no calf tenderness OB - PN: A/P Plan - Vaginal Delivery day: 2 Plan: routine care, discharge home and follow up 6 weeks Time Spent with Patient Time: Total time spent is greater than 50% in coordination of care (as documented) at patient's floor/unit and/or counseling patient: Total time spent with greater than 50% in coordination of care (as documented) at patient's floor/unit and/or counseling patient: less than 15 minutes
[2025-06-21 07:23] LABS: Mean Corpuscular HGB Conc 32.6 g/dL (29.9-35.2); Mean Corpuscular Hemoglobin 27.4 pg (26.7-34.0); Mean Corpuscular Volume 84.0 fL (81.0-99.0); Platelet Count 186 10^3/uL (150-450); Red Blood Count 2.19 10^6/uL (4.20-5.40); White Blood Count 11.9 10^3/uL (4.0-11.0)
[2025-06-21 07:27] LABS: Hematocrit 18.4 % (36.0-48.0); Hemoglobin 6.0 g/dL (12.0-16.0)
[2025-06-21] MEDS: IBUPROFEN 600 MG TABLET PO ×2 (07:34→14:12)
[2025-06-21] MEDS: BENZOCAINE/MENTHOL 85 GRAM SPRAY BOTTLE 1 APPLIC TOPICAL (07:34)
[2025-06-21] MEDS: DOCUSATE SODIUM 100 MG CAPSULE PO (09:03)
[2025-06-21] MEDS: ACETAMINOPHEN 325 MG TABLET 650 MG PO (11:02)
--- NOTE | 2025-06-21 19:35 | W.PC.ACHO ---
Registration Status: ADM IN Primary Language: Preferred Language: Croatian Report given to Miguel Angel JOHNSON at 1900. Care relinquished. Active Medications Generic Name Dose Route Start Last Admin Trade Name Alexandrq PRN Reason Stop Dose Admin Acetaminophen 650 mg 06/19/25 10:12 06/21/25 11:02 Acetaminophen 325 Mg Tablet PO 650 mg Q6H PRN Administration Mild Pain Al Hydroxide/Mg Hydroxide 2,400 mg 06/19/25 10:12 Magnesium Hydroxide 2,400 Mg/10 Ml Oral.Susp PO Q6H PRN Dyspepsia Benzocaine/Menthol 1 applic 06/19/25 10:12 06/21/25 07:34 Benzocaine/Menthol 85 Gram [place] Bottle TOPICAL 1 applic Q2H PRN Administration Pain Docusate Sodium 100 mg 06/20/25 09:00 06/21/25 09:03 Docusate Sodium 100 Mg Capsule PO 100 mg BID BENJI Administration Sodium Chloride 1,000 mls @ 125 mls/hr 06/17/25 23:30 06/19/25 08:50 Sodium Chloride 0.9% 1,000 Ml IV Infused .Q8H BENJI Infusion Sodium Chloride 250 mls @ 10 mls/hr 06/20/25 08:00 06/20/25 12:35 Sodium Chloride 0.9% 250 Ml IV 10 mls/hr .Q24H PRN Administration LINE CLEARANCE Ibuprofen 600 mg 06/19/25 10:12 06/21/25 14:12 Ibuprofen 600 Mg Tablet PO 600 mg Q6H PRN Administration Moderate Pain Ondansetron HCl 4 mg 06/17/25 23:11 Ondansetron Pf 4 Mg/2 Ml Vial IV Q6H PRN Nausea And Vomiting Ondansetron HCl 4 mg 06/17/25 23:11 Ondansetron 4 Mg Rapdis Tablet SL Q6H PRN Nausea And Vomiting Senna 17.2 mg 06/19/25 20:00 Sennosides 8.6 Mg Tablet PO QHS PRN Constipation Simethicone 80 mg 06/19/25 10:12 Simethicone 80 Mg Tab.Chew PO QID PRN Abdominal Distention Temazepam 15 mg 06/19/25 10:12 Temazepam 15 Mg Capsule PO QHS PRN Sleep Witch Joselyn/Glycerin 1 pad 06/19/25 10:12 Glycerin/Witch Joselyn Pads TOPICAL Q2H PRN Pain Respiratory Oxygen Delivery Method Room Air Oxygen Delivery Method Room Air Oxygen Delivery Method Room Air Cardiology Heart Sounds Regular Heart Sounds Regular Heart Sounds Regular Bowels Bowel Pattern Diarrhea Date of Last Bowel Movement 06/21/25 Date of Last Bowel Movement 06/21/25 Renal Bladder Pattern Continent Bladder Pattern Continent Bladder Pattern Continent
--- NOTE | 2025-06-24 11:15 | PM.OBPRCVD ---
Procedure Intrapartal events: None, Prolonged Labor > 20 hours and Febrile Induction method: per pitocin protocol Delivery augmentation: rupture of membranes and pitocin Delivery monitor: external FHT and external uterine Route of delivery: Episiotomy Description: midline L&D Laceration Description: periurethral - 2nd degree Delivery repair: Vicryl Estimated blood loss (mL): 499 Anesthesia type: Epidural Disposition: PACU Delivery date: 06/19/25 Gender: female presentation: vertex Placental delivery description: Spontaneous cord description: 3 Vessels Stage 1 Duration Labor - Stage 1 Duration: 24 hours and 30 minutes Labor State Duration Labor - Stage 2 Duration: 1 hours and 11 minutes Labor - Stage 3 Duration: 9 minutes Total Length of Labor: 25 hours and 50 minutes Total Length of Latency: 24 hours and 50 minutes
== END 2025-06-21 20:20 | disposition home or self-care (01) | DRG 806 ==
PROVIDERS: Admitting Provider Obstetrics & Gynecology; PCP Physician Assistant; Visit Provider Obstetrics & Gynecology
DX: O13.4 Gestational [pregnancy-induced] hypertension without significant proteinuria, complicating childbirth (principal); O75.2 Pyrexia during labor, not elsewhere classified; Z37.0 Single live birth; O99.334 Smoking (tobacco) complicating childbirth; F17.290 Nicotine dependence, other tobacco product, uncomplicated; O70.1 Second degree perineal laceration during delivery; O63.0 Prolonged first stage (of labor); Z3A.39 39 weeks gestation of pregnancy; Z90.49 Acquired absence of other specified parts of digestive tract
CPT/HCPCS: 36415; 36430; 59050; 59410; 80307; 85025; 85027; 86850; 86900; 86901; 86923; J0290; J0665; J2300; J2795; P9016

== ENCOUNTER 2025-06-22 12:11 | Observation (INO) | payer BC, SELFPAY ==
--- OUTSIDE RECORDS SUMMARY | 2025-06-09 11:10 | XMS_ITS | Encounter Summary ---
Author Organization [facility] Address [address] [facility] [place] [address] Care Team Providers Care Pickle Maker Name Role Phone Josr Martinez MD Primary Care Provider [phone] Reason for Visit * ReasonCommentsRoutine Visit Encounter Details DateTypeDepartmentCare Team (Latest Contact Info)Btakystdmmk18/24/2025 11:10 AM ESTRoutine [facility] [address] [facility] [place] [phone] Edy Marcum DO [address] [facility] [address] [place] [phone] Third trimester ([facility]); 38 weeks gestation of ([facility]) Social History Tobacco UseTypesPacks/DayYears UsedDateSmoking Tobacco: NeverSmokeless Tobacco: Current Comments:Vape Alcohol UseStandard Drinks/WeekCommentsNot Currently0 (1 standard drink = 0.6 oz pure alcohol)Estimated Date of NndfdtsgTkrspsimDjy45/07/2025Based on UltrasoundSex and Gender InformationValueDate RecordedSex Assigned at BirthNot on fileLegal LlhMwjufb61/07/2024 2:18 PM EDTGender IdentityNot on fileSexual OrientationNot on filedocumented as of this encounter Last Filed Vital Signs Vital SignReadingTime TakenCommentsBlood Larntmml544/7006/09/2025 11:37 AM EST Pulse--Temperature--Respiratory Rate--Oxygen Saturation--Inhaled Oxygen Concentration--Eravsb17.6 kg (182 lb)06/09/2025 11:37 AM ESTHeight--Body Mass [...] nursing note reviewed. Exam conducted with a train control technician present. Vitals: Estimated body mass index is 34.39 kg/m?? as calculated from the following: Height as of 11/08/24: 5' 1 . Weight as of this encounter: 182 lb. BP: 118/70 Patient's last menstrual period was 09/06/2024. Assessment/Plan ICD-10-CM 1. Third trimester ([facility]) Z34.93 2. 38 weeks gestation of ([facility]) Z3A.38 POCT urinalysis dipstick manually [...] Plan of Treatment DateTypeDepartmentCare Team (Latest Contact Info)Vqtmjhtywpe46/19/2026 8:30 AM ESTProcedure Visit [facility] [address] [place] [address] Edy Marcum DO [address] [place], [place] [phone] documented as of this encounter Procedures Procedure NamePriorityDate/TimeAssociated DiagnosisCommentsPOCT URINALYSIS COCZCYSHQcptovp23/ 11:37 AM EST 38 weeks gestation of ([facility]) documented in this encounter Results [...] this encounter Visit Diagnoses Diagnosis Third trimester ([facility]) state, incidental 38 weeks gestation of ([facility]) documented in this encounter Care Teams Team MemberRelationshipSpecialtyStart DateEnd Date Josr Martinez MD [address] [facility], [facility] [address] [place] [address] PCP - GeneralFamily Medicine11/08/24documented as of this encounter
[2025-06-22] VITALS (99 sets, daily range): BP systolic 107–155; BP diastolic 60–99; PULSE 62–110; TEMP 36.4–36.9; O2SAT 96–100
--- OUTSIDE RECORDS SUMMARY | 2025-06-22 12:17 | XMS_ITS | Encounter Summary ---
Author Organization [facility] Address [address] [place] [address] Care Team Providers Care Poultry Helper Name Role Phone Josr Martinez MD Primary Care Provider [phone] Encounter Details DateTypeDepartmentCare Team (Latest Contact Info)Errnvouqgnm20/26/2025linisync Result Encounter [facility] External Department Unsolicited Ishaan Marcum, DO [address], [facility]11 Social History Tobacco UseTypesPacks/DayYears UsedDateSmoking Tobacco: NeverSmokeless Tobacco: Current Comments:Vape Alcohol UseStandard Drinks/WeekCommentsNot Currently0 (1 standard drink = 0.6 oz pure alcohol)Estimated Date of NitqskpfDgcvhklqNab67/07/2025Based on UltrasoundSex and Gender InformationValueDate RecordedSex Assigned at BirthNot on fileLegal MjgOlxfgh45/07/2024 2:18 PM EDTGender IdentityNot on fileSexual OrientationNot on filedocumented as of this encounter Plan of Treatment DateTypeDepartmentCare Team (Latest Contact Info)Beqbqmcsbtc03/19/2026 8:30 AM ESTProcedure Visit [facility] Connie WAREGYN [address] [facility] [place] [address] Ishaan Marcum DO [address] [place] [address] documented as of this encounter Procedures Procedure NamePriorityDate/TimeAssociated DiagnosisCommentsUS OB BPP W NON-YAEEIO4506/11/2025 3:59 PM EST documented in this encounter Results * US OB BPP W NON-STRESS (06/11/2025 3:59 PM EST)Anatomical Region LateralityModalityOtherSpecimen (Source)Anatomical Location / Laterality Collection Method / VolumeCollection TimeReceived Time06/11/2025 3:59 PM EST Narrative 06/11/2025 4:01 PM EST [facility] ?[address] ? [place], [facility]11 ? Ultrasound Report ? Signed ? Patient: SHEFALI,CHRIST L ?MR#: [id number] ?? : 2000 ?Acct:[id number] ?? Age/Sex: 25 / F ?ADM Date: 06/11/25 ?? Loc: US ? Attending Dr: Ishaan Macrum D.O. ? Ordering Physician: Ishaan Marcum D.O. ?? Date of Service: 06/11/25 ?? Procedure(s): US OB BPP w non-stress ?? Accession Number(s): [id number] ? cc: Ishaan Marcum D.O.; Physician,Non-Staff M.D. ? [facility] ? [address] ? [place] [address] ? Patient Name: ?? CHRIST MEEHAN ? MRN: [facility]:[id number] ? date: 2000 ?Sex: F ?? Assigned Patient Location: US ?? Current Patient Location: ? Accession/Order Number: [id number] ?? Exam Date: 06/11/2025 ??14:00 ?Report Date: [...] Dictation Location: RADIO-PC-29 ? Electronically authenticated by: [id number] ??Y ?? Date: 06/11/2025 ??15:59 ? Dictated By: ?Jose Manuel Guan M.D. ? Signed By: ?11/26/25 1601 ? DD/ 1559 ? TD/TT: ? Night Time Nanny: Procedure Note Radiology, Radiologist, - 06/16/2025 [place] [address] Ultrasound Report Signed Patient: CHRIST MEEHAN LMR#: [id number] : 2000Acct:[id number] Age/Sex: 25 / FADM Date: 06/11/25 Loc: US Attending Dr: Ishaan Marcum D.O. Ordering Physician: Ishaan Marcum D.O. Date of Service: 06/11/25 Procedure(s): US OB BPP w non-stress Accession Number(s): [id number] cc: Ishaan Marcum D.O.; Physician,Non-Staff [place] The [place] [address] Patient Name: CHRIST MEEHAN MRN: [id number] date: 2000 Sex: F Assigned Patient Location: US Current Patient Location: Accession/Order Number: [id number] Exam Date: 06/11/2025 14:00 Report Date: 06/11/2025 15:59 At the request of: ISHAAN MARCUM DO Procedure: US OB BPP w non-stress Ultrasound biophysical profile INDICATION: -induced hypertension COMPARISON: 06/04/2025 FINDINGS/IMPRESSION: Fetus is cephalic position. heart rate 147bpm. CHAI 14.2 cm. Biophysical profile 02/21 Impression dictated by: Jose Manuel Guan M.D. 06/11/2025 3:59 PM Dictation Location: [place] [address] Electronically authenticated by: [id number] Y Date: 5:59 Dictated By: Jose Manuel Guan M.D. Signed By:06/11/25 160 DD/ 1559 TD/TT: Night Time Nanny: Authorizing ProviderResult TypeResult StatusCorechristi Marcum DOCLINISYNC IMAGINGFinal Result documented in this encounter Visit Diagnoses Not on filedocumented in this encounter Care Teams Team MemberRelationshipSpecialtyStart DateEnd Date Josr Martinez MD [address] [facility], [facility] [address] [place] [address] PCP - GeneralFamily Medicine11/08/24documented as of this encounter
--- OUTSIDE RECORDS SUMMARY | 2025-06-22 12:17 | XMS_ITS | Encounter Summary ---
Author Organization [facility] Address [address] [facility] [place] [address] Care Team Providers Care Head Stock Transfer Clerk Name Role Phone Josr Martinez MD Primary Care Provider [phone] Encounter Details DateTypeDepartmentCare Team (Latest Contact Info)Zccwqbabdla87/05/2025linisync Result Encounter [facility]S External Department Unsolicited Edy Marcum, DO [address], [facility]11 Social History Tobacco UseTypesPacks/DayYears UsedDateSmoking Tobacco: NeverSmokeless Tobacco: Current Comments:Vape Alcohol UseStandard Drinks/WeekCommentsNot Currently0 (1 standard drink = 0.6 oz pure alcohol)Estimated Date of WxhpupriLigawqdxSjp43/07/2025Based on UltrasoundSex and Gender InformationValueDate RecordedSex Assigned at BirthNot on fileLegal UyxVytpiv25/07/2024 2:18 PM EDTGender IdentityNot on fileSexual OrientationNot on filedocumented as of this encounter Plan of Treatment DateTypeDepartmentCare Team (Latest Contact Info)Fwdmwqlkubp19/19/2026 8:30 AM ESTProcedure Visit [facility] Connie [place] [address] [facility] [address] Edy Marcum DO [address] [place] [address] documented as of this encounter Procedures Procedure NamePriorityDate/TimeAssociated DiagnosisCommentsALL CBC WITH AUTO ONSQGquymgn67/05/2025 6:24 AM EST documented in this encounter Results * (ABNORMAL) ALL CBC WITH AUTO DIFF (06/20/2025 6:24 AM EST)ComponentValueRef RangeTest MethodAnalysis TimePerformed AtPathologist SignatureTBH WBC19.8(H) 4.0 - 11.0 10 3/uLTBHTBH RBC2.13(L)4.20 - 5.40 10 6/uLTBHTBH HGB6.0(LL)12.0 - 16.0 g/dLTBHComment: RESULTS CALLED TO [facility] Jostin Jeff RN @BY Noah Ruvalcaba MLT at 0637 TB HCT18.2(LL)36.0 - 48.0 %TBHComment: RESULTS CALLED TO [facility] Jostin Jeff RN @BY Noah Ruvalcaba MLT at 0637 TB MCV85.481.0 - 99.0 fLTBHTBH MCH28.226.7 - 34.0 pgTBHTBH MCHC33.029.9 - 35.2 g/dLTBHTBH RDW13.111.0 - 15.0 %TBHTBH BSR659502 - 450 10 3/uLTBHTBH MPV10.89.5 - 13.5 fLTBHNEUTROPHILS PERCENT AUTO81.0(H)43.0 - 75.0 %TBHLYMPHOCYTES PERCENT AUTO12.5(L)20.5 - 60.0 %TBHMONOCYTES PERCENT AUTO4.31.7 - 12.0 %TBHTBH EO %1.2 0.9 - 7.0 %TBHBASOPHILS PERCENT AUTO0.40.2 - 2.0 %TBHIMMATURE GRANULOCYTES PCT AUTO0.6(H)0.0 - 0.5 %TBHNEUTROPHILS ABSOLUTE AUTO16.1(H)1.4 - 6.5 10 3/uLTBH LYMPHOCYTES ABSOLUTE AUTO2.51.2 - 3.8 10 3/uLTBHMONOCYTES ABSOLUTE AUTO0.9(H)0.3 - 0.8 10 3/uLTBHTBH EO #0.20.0 - 0.7 10 3/uLTBHBASOPHILS ABSOLUTE AUTO0.10.0 - 0.1 10 3/uLTBHIMMATURE GRANULOCYTES ABS AUTO0.12(H)0.00 - 0.03 10 3/uLTBH Specimen (Source)Anatomical Location / LateralityCollection Method / Volume Collection TimeReceived Time06/20/2025 6:24 AM EST06/20/2025 6:29 AM EST Narrative [facility] - 06/20/2025 6:39 AM EST Authorizing ProviderResult TypeResult StatusCorey Jossue DOCLINISYNCFinal Result Performing OrganizationAddressCity/State/ZIP CodePhone Number CLINISYNC TBH documented in this encounter Visit Diagnoses Not on filedocumented in this encounter Care Teams Team MemberRelationshipSpecialtyStart DateEnd Date Josr Martinez MD [address] [facility], [place] [address] PCP - GeneralFamily Medicine11/08/24documented as of this encounter
--- OUTSIDE RECORDS SUMMARY | 2025-06-22 12:17 | XMS_ITS | Encounter Summary ---
Author Organization [facility] Address [address] [facility] [place] [address] Care Team Providers Care Snapper On Name Role Phone Josr Martinez MD Primary Care Provider [phone] Encounter Details DateTypeDepartmentCare Team (Latest Contact Info)Hdtyqqikjvt89/02/2025linisync Result Encounter [facility]OMS External Department Unsolicited Edy Marcum, DO [address], [facility]11 Social History Tobacco UseTypesPacks/DayYears UsedDateSmoking Tobacco: NeverSmokeless Tobacco: Current Comments:Vape Alcohol UseStandard Drinks/WeekCommentsNot Currently0 (1 standard drink = 0.6 oz pure alcohol)Estimated Date of NecvftixPtejnwfaTwh14/07/2025Based on UltrasoundSex and Gender InformationValueDate RecordedSex Assigned at BirthNot on fileLegal TtjLtlfzr86/07/2024 2:18 PM EDTGender IdentityNot on fileSexual OrientationNot on filedocumented as of this encounter Plan of Treatment DateTypeDepartmentCare Team (Latest Contact Info)Eupdjvctpjw58/19/2026 8:30 AM ESTProcedure Visit [facility] Connie MACKEY [address] [facility] [place] [address] Edy Marcum DO [address] [place] [address] documented as of this encounter Procedures Procedure NamePriorityDate/TimeAssociated DiagnosisCommentsTBH DRUG SCREEN RAPID (URINE)Uffmsgp4406/17/2025 11:55 PM EST HMHP CBC WITH PLATELET NO GNRUQMOVGMSRNefikbr24/02/2025 11:50 PM EST documented in this encounter Results * [facility] DRUG SCREEN RAPID (URINE) (06/17/2025 11:55 PM EST)ComponentValueRef Range Test MethodAnalysis TimePerformed AtPathologist SignatureCANNABINOID SCREEN URINENEGATIVENEGATIVETBHPHENCYCLIDINE SCREEN URINENEGATIVENEGATIVETBHCOCAINE SCREEN URINENEGATIVENEGATIVETBHMETHAMPHETAMINES SCREEN URINENEGATIVENEGATIVE TBHOPIATE SCREEN URINENEGATIVENEGATIVETBHAMPHETAMINE SCREEN URINENEGATIVE NEGATIVETBHBENZODIAZEPINES SCREEN URINENEGATIVENEGATIVETBHTRICYCLIC ANTIDEPRESSANT URINENEGATIVENEGATIVETBHMETHADONE SCREEN URINENEGATIVENEGATIVE TBHBARBITURATES SCREEN URINENEGATIVENEGATIVETBHOXYCODONE SCREEN URINENEGATIVE NEGATIVETBHBUPRENORPHINE SCREEN URINENEGATIVENEGATIVETBHComment: DRUG CLASS TEST SYSTEM CUT-OFF CONCENTRATIONS ARE FOLLOWS: AMP (Amphetamine): 500 ng/mL BAR (Barbiturates): 200 ng/mL BZO (Benzodiazepines): 150 ng/mL BUP (Buprenorphine): 10 ng/mL MILTON (Cocaine): 150 ng/mL mAMP (Methamphetamine): 500 ng/mL MTD (Methadone): 200 ng/mL OPI (Opiates): 100 ng/mL OXY (Oxycodone): 100 ng/mL PCP (Phencyclidine): 25 ng/mL THC (Cannabinoids): 50 ng/mL TCA (Trycyclic Antidepressants): 300 ng/mL Specimen (Source)Anatomical Location / LateralityCollection Method / Volume Collection TimeReceived Time06/17/2025 11:55 PM EST06/18/2025 12:08 AM EST Narrative [facility] - 06/18/2025 12:22 AM EST Authorizing ProviderResult TypeResult StatusCorey Jossue DOCLINISYNCFinal Result Performing OrganizationAddressCity/State/ZIP CodePhone Number CLINISYNC [facility] * (ABNORMAL) HMHP CBC WITH PLATELET NO DIFFERENTIAL (06/17/2025 11:50 PM EST) ComponentValueRef RangeTest MethodAnalysis TimePerformed AtPathologist SignatureTBH WBC9.54.0 - 11.0 10 3/uLTBHTBH RBC3.52(L)4.20 - 5.40 10 6/uLTBH TBH HGB9.9(L)12.0 - 16.0 g/dLTBHTBH HCT29.6(L)36.0 - 48.0 %TBHTBH MCV84.181.0 - 99.0 fLTBHTBH MCH28.126.7 - 34.0 pgTBHTBH MCHC33.429.9 - 35.2 g/dLTBHTBH RDW 12.411.0 - 15.0 %TBHTBH FXK534879 - 450 10 3/uLTBHTBH MPV10.99.5 - 13.5 fLTBH Specimen (Source)Anatomical Location / LateralityCollection Method / Volume Collection TimeReceived Time06/17/2025 11:50 PM EST06/18/2025 12:08 AM EST Narrative [facility] - 06/18/2025 12:11 AM EST Authorizing ProviderResult TypeResult StatusCorey Jossue DOCLINISYNCFinal Result Performing OrganizationAddressCity/State/ZIP CodePhone Number CLINISYNC TB documented in this encounter Visit Diagnoses Not on filedocumented in this encounter Care Teams Team MemberRelationshipSpecialtyStart DateEnd Date Josr Martinez MD [address] [facility], [place] [address] PCP - GeneralFamily Medicine11/08/24documented as of this encounter
--- OUTSIDE RECORDS SUMMARY | 2025-06-22 12:17 | XMS_ITS | Clinical Summary ---
Author Organization [facility] Address [address] [place] [address] Phone Care Team Providers Care Associate Research Scientist Name Role Phone Josr Martinez PA-C Primary Care Provider [phone] Allergies No known active allergies Medications MedicationSigDispense [...] Additional Information Patient not taking.Reported on 11/19/2024 3-GHNQ-UXCFL ACID-OM3 ORAL Take by mouth.Active Active Problems ProblemNoted DateDiagnosed DateLow blood sugar03/21/2023Low vitamin B12 level 03/21/2023Vitamin D ewxdyrwndoord36/05/2023Elevated bqcuqupvw42/05/2023 Jsdpknbpqcewt53/05/2023remenstrual /05/2023remenstrual syndrome 03/21/2023eneralized anxiety dssuqcce17/14/2023 Family History Medical HistoryRelationNameCommentsHypertensionFatherDiabetesMaternal GrandfatherAlzheimer's diseaseMaternal GrandmotherDiabetesPaternal Grandfather Heart diseasePaternal GrandfatherRelationNameStatusCommentsFatherMaternal GrandfatherMaternal GrandmotherPaternal Grandfather Social History Tobacco UseTypesPacks/DayYears UsedDateSmoking Tobacco: NeverSmokeless Tobacco: Never Tobacco Cessation:Counseling Given: Not Answered PHQ-2AnswerDate RecordedPatient Health Questionnaire-2 Fqonh895 CommentsUnknownSex and Gender InformationValueDate RecordedSex Assigned at Qwcect6301/09/2024 2:41 PM EDTLegal KbqAkilcj93/25/2022 10:21 PM ESTGender PeoijqlpFndloi72/25/2024 2:41 PM EDTSexual OrientationNot on file Last Filed Vital Signs Vital SignReadingTime TakenCommentsBlood Ggicqapa207/78011/19/2024 7:27 AM EDT Mzlbb288211/19/2024 7:27 AM AOIRequuibnygy88.6 ??C (97.8 ??F)09/18/2024 3:27 PM ESTRespiratory Fqyn005409/18/2024 3:27 PM ESTOxygen Hsmkxngwgh85%11/19/2024 7:27 AM EDTInhaled Oxygen Concentration--Vcxyys93.3 kg (144 lb)11/19/2024 7:27 AM EDT Qkfzml636.8 cm (5' 2.5 )11/19/2024 7:27 AM EDTBody Mass Index25.9211/19/2024 7:27 AM EDT Plan of Treatment DateTypeDepartmentCare Team (Latest Contact Info)Qsgdfogfhgd10/07/2026 8:00 AM EDTOffice Visit [facility] [address] [place] [address] Josr Martinez PA-C [address] [facility] [address] [place] [address] Health MaintenanceDue DateLast DoneCommentsHIV Fnjeeuerz1998Lipid Panel 1998MMR Vaccines (1 of 1 - Standard series)1999Hepatitis C Screening 01/24/2016Hepatitis B Vaccines (1 of 3 - 19+ 3-dose series)2017HPV/Cotest 2019DTaP/Tdap/Td Vaccines (1 - Tdap)01/24/2020HPV Vaccines (1 - 3-dose standard series)2025Influenza Vaccine (#1)5COVID-19 Vaccine (1 - season)5Yearly Adult Sjrwaovk64/26/60370308/10/2023, 07/27/2022, 09/25/2020ervical Cancer Zrzigvjyu88/25/2027Pap Smear7108/10/2023, 07/29/2021Zoster Vaccines (1 of 2)01/24/2048HIB VaccinesAged [...] Type:Not on file Address: [id number] Care Teams Team MemberRelationshipSpecialtyStart DateEnd Josr Moran PA-C [address] [facility], [place] [address] PCP - GeneralFamily Medicine11/24/23
--- OUTSIDE RECORDS SUMMARY | 2025-06-22 12:17 | XMS_ITS | Encounter Summary ---
Author Organization [facility] Address [address] [facility] [place] [address] Care Team Providers Care District Plant Supervisor Name Role Phone Josr Martinez MD Primary Care Provider [phone] Encounter Details DateTypeDepartmentCare Team (Latest Contact Info)Stfdmucvieu18/24/2025Bamboo flowsheet LAISHA MACKEY [address] [place] [address] [place] [address] Edy Marcum DO [address] [place] [address] [address], [place] [address] Social History Tobacco UseTypesPacks/DayYears UsedDateSmoking Tobacco: NeverSmokeless Tobacco: Current Comments:Vape Alcohol UseStandard Drinks/WeekCommentsNot Currently0 (1 standard drink = 0.6 oz pure alcohol)Estimated Date of YwfzuezjWwgkhkzpKxy81/07/2025Based on UltrasoundSex and Gender InformationValueDate RecordedSex Assigned at BirthNot on fileLegal TolYplhyz23/07/2024 2:18 PM EDTGender IdentityNot on fileSexual OrientationNot on filedocumented as of this encounter Plan of Treatment DateTypeDepartmentCare Team (Latest Contact Info)Oyqtzynndhc77/19/2026 8:30 AM ESTProcedure Visit LAISHA MACKEY [address] [place] [address] [place] [address] Edy Marcum DO [address] [place] [address] [address], [facility]11 documented as of this encounter Visit Diagnoses Not on filedocumented in this encounter Care Teams Team MemberRelationshipSpecialtyStart DateEnd Date Josr Martinez MD [address] [facility], [place] [address] PCP - GeneralFamily Medicine11/08/24documented as of this encounter
--- OUTSIDE RECORDS SUMMARY | 2025-06-22 12:17 | XMS_ITS | Clinical Summary ---
Author Organization [facility] Address [address] [place] [address] Care Team Providers Care Surveyor Geophysical Prospecting Name Role Phone Josr Martinez MD Primary Care Provider [phone] Allergies No known active allergies Medications MedicationSigDispense QuantityRefillsLast FilledStart DateEnd DateStatus magnesium oxide (Mag-Ox) 400 MG tablet Indications:Leg cramps in ([facility])Take 1 tablet (400 mg) by mouth Daily 30 tablet 60//[id number]/6Active calcium carbonate (Os-Barry) 1250 (500 Ca) MG chewable tablet Chew 1 tablet DailyActive Encounters DateTypeDepartmentCare GalcImogvajvurt65/05/2025Clinisync Result Encounter [facility] External Department Unsolicited Ishaan Marcum, DO 5Clinisync Result Encounter NOMS External Department Unsolicited Ishaan Marcum, DO 5Clinisync Result Encounter NOMS External Department Unsolicited Ishaan Marcum, DO 06/09/2025 11:10 AM ESTRoutine [facility] [place] [facility] [address] [facility] [place] [address] Ishaan Marcum, DO Third trimester ([facility]); 38 weeks gestation of ([facility])5Bamboo flowsheet [facility] [place] [facility] [address] [place] [address] Ishaan Marcum, DO 06/04/2025 3:20 PM ESTRoutine [facility] [place] [facility] [address] [place] [address] Lissa Steward PA 37 weeks gestation of ([facility]); Third trimester ([facility]); induced hypertension, antepartum ([facility])06/04/2025linisync Result Encounter NOMS External Department Unsolicited Jossue, Ishaan, DO 06/04/2025linisync Result Encounter NOMS External Department Unsolicited Jossue, Ishaan, DO 06/04/2025amboo flowsheet [facility] [place] [facility] [address] [place] [address] Lissa Steward PA 05/29/20250517Egulph24/10/2025 4:00 PM ESTRoutine [facility] [place] [facility] [address] [address] Lissa Steward PA Third trimester ([facility]); 36 weeks gestation of ([facility])05/26/2025linisync Result Encounter NOMS External Department Unsolicited Lissa Steward PA 05/26/2025amboo flowsheet [facility] [place] [facility] [address] [place] [address] Lissa Steward PA 05/25/20252346Hxnklp24/04/2025 8:50 AM ESTRoutine [facility] [place] [facility] [address] [place] [address] Lissa Steward PA Third trimester ([facility]); 35 weeks gestation of ([facility])05/20/2025amboo flowsheet [facility] [place] [facility] [address] [place] [address] Lissa Steward PA 05/13/20257566Vxhsao06/20/2025 8:40 AM EDTRoutine [facility] [place] [facility] [address] [place] [address] Ishaan Marcum, DO 33 weeks gestation of ([facility]); Third trimester ([facility]); Leg cramps in ([facility])05/05/2025amboo flowsheet [facility] [place] [facility] [address] [place] [address] Ishaan Marcum, DO 04/30/2025linisync Result Encounter NOMS External Department Unsolicited Ishaan Marcum, DO 04/30/2025Telephone [facility] [place] [facility] [address] [address] Ishaan Marcum, DO 04/28/20253029Xktvdj55/08/2025 3:10 PM EDTRoutine [facility] [place] [address] [facility] [place] [address] Cristin Beckett, CELIO Third trimester ([facility]); 30 weeks gestation of ([facility])04/23/2025amboo flowsheet [facility] [place] [facility] [address] [address] Cristin Beckett, CELIO 04/16/20254677Fkgrqw70/24/2025 3:50 PM EDTRoutine [facility] [place] [facility] [address] [place] [address] Ishaan Marcum, DO Third trimester ([facility]); 29 weeks gestation of ([facility]); Leg cramps in ([facility])04/09/2025 3:00 PM EDTAncillary Procedure [facility] [place] [facility] [address] [place] [address] Size of fetus inconsistent with dates in second trimester ([facility])04/02/2025 Travelfrom Last 3 Months Family History Medical HistoryRelationNameCommentsHypertensionFatherMarkDiabetesMaternal GrandfatherDavidMigrainesMotherChristinaDiabetesPaternal GrandfatherArthurHeart failurePaternal GrandfatherArthurHypertensionPaternal GrandfatherArthurRelation NameStatusCommentsFatherMarkAliveMaternal GrandfatherDavidAliveMotherChristina AlivePaternal GrandfatherArthurAlive Social History Tobacco UseTypesPacks/DayYears UsedDateSmoking Tobacco: NeverSmokeless Tobacco: Current Tobacco Cessation:Ready to Q uit: Not Asked; Counseling Given: Not Answered Comments:Vape Alcohol UseStandard Drinks/WeekCommentsNot Currently0 (1 standard drink = 0.6 oz pure alcohol)Estimated Date of VoftsdexRfrtmqxwZbp31/07/2025ased on UltrasoundSex and Gender InformationValueDate RecordedSex Assigned at BirthNot on fileLegal PttHcxbtu33/07/2024 2:18 PM EDTGender IdentityNot on fileSexual OrientationNot on file Last Filed Vital Signs Vital SignReadingTime TakenCommentsBlood Swbyqkdj716/7006/09/2025 11:37 AM EST Pulse--Temperature--Respiratory Rate--Oxygen Saturation--Inhaled Oxygen Concentration--Ryxchi50.6 kg (182 lb)06/09/2025 11:37 AM ZLLYekxqf651.9 cm (5' 1 )11/08/2024 10:59 AM EDTBody Mass Index34.39011/08/2024 10:59 AM EDT Plan of Treatment DateTypeDepartmentCare Team (Latest Contact Info)Fkycqxxpqvl83/19/2026 8:30 AM ESTProcedure Visit [facility] [place] [facility] [address] [place] [address] Ishaan Marcum DO [address] [place] [address] Procedures Procedure NamePriorityDate/TimeAssociated DiagnosisCommentsALL CBC WITH AUTO VCFWWiyjmle61/05/2025 6:24 AM EST [facility] DRUG SCREEN RAPID (URINE)Nkxgorm3906/17/2025 11:55 PM EST HP CBC WITH PLATELET NO CISROYSTEVOXRduzaez53/02/2025 11:50 PM EST US OB BPP W NON-OYUKIH5606/11/2025 3:59 PM EST POCT URINALYSIS YHGERTDZEjnmput36/24/2025 11:37 AM EST 38 weeks gestation of ([facility]) US OB BPP W NON-ITTHRS0406/04/2025 11:42 PM EST CCF SAYHNapyuux72/19/2025 4:53 PM EST SRMCOH PROTHROMBIN TIME INR W/O HWFAAfbumxq59/19/2025 4:53 PM EST ALL CBC WITH AUTO VFBTBhkbqmj48/19/2025 4:53 PM EST ALL PKRGshpqgb39/19/2025 4:53 PM EST CCF YTZLbgzmyy80/19/2025 4:53 PM EST CCF SQGGucogem10/19/2025 4:53 PM EST ALL URIC OXPBKxqghdd44/19/2025 4:53 PM EST TBH NRNDYELDFROkvvkbx74/19/2025 4:53 PM EST ALL NFSUocpeke00/19/2025 4:53 PM EST TBH URINE T PROTEIN CREAT LQCMRNmztqoq40/19/2025 4:35 PM EST POCT URINALYSIS HIYZVAGELrwofug36/19/2025 3:33 PM EST 37 weeks gestation of ([facility]) Third trimester ([facility]) POCT URINALYSIS NZKFCPJLLaygfbe08/10/2025 4:19 PM EST 36 weeks gestation of ([facility]) STREP GP B LRWLxsepnb27/10/2025 4:00 PM EST POCT URINALYSIS UWBIZZUZHrsdryb56/04/2025 9:05 AM EST 35 weeks gestation of ([facility]) POCT URINALYSIS VEKVRQSCXjystao56/20/2025 8:46 AM EDT 33 weeks gestation of ([facility]) Third trimester ([facility]) CCF UCFOoawfsw94/15/2025 11:12 AM EDT CCF WSUGzqvenm73/15/2025 11:12 AM EDT ALL URIC BZLBYihzadk22/15/2025 11:12 AM EDT TBH JSSMTKOEJOSvwfotl44/15/2025 11:12 AM EDT ALL JICKhnlibl12/15/2025 11:12 AM EDT ALL CBC WITH AUTO FWLETkfaucu11/15/2025 11:12 AM EDT MHPT VULTQOIBLGVozneft81/15/2025 11:12 AM EDT CCF SDMXUgpeclc38/15/2025 11:12 AM EDT SRMCOH PROTHROMBIN TIME INR W/O AAVVXdhlliy93/15/2025 11:12 AM EDT TBH URINE T PROTEIN CREAT HFKJLPbiuhwr09/15/2025 10:40 AM EDT POCT URINALYSIS HLQWWUWGHfifvkd73/08/2025 3:24 PM EDT Third trimester ([facility]) POCT URINALYSIS CZGDYPAUTgwntnn68/24/2025 3:39 PM EDT Third trimester ([facility]) US OB FOLLOW UP TRANSABDOMINAL FUZFSKGBVpfzrns56/24/2025 3:15 PM EDT Size of fetus inconsistent with dates in second trimester ([facility]) from Last 3 Months Results * (ABNORMAL) ALL CBC WITH AUTO DIFF (06/20/2025 6:24 AM EST) Only the most recent of3 resultswithin the time period is included. ComponentValueRef RangeTest MethodAnalysis TimePerformed AtPathologist Signature TBH WBC19.8(H)4.0 - 11.0 10 3/uLTBHTBH RBC2.13(L)4.20 - 5.40 10 6/uLTBHTBH HGB 6.0(LL)12.0 - 16.0 g/dLTBHComment: RESULTS CALLED TO [facility] Jostin Jeff RN @BY Noah Ruvalcaba ABORIGINAL LIAISON OFFICER at 0637 TB HCT18.2(LL)36.0 - 48.0 %TBHComment: RESULTS CALLED TO [facility] Jostin Jeff RN @BY Noah Ruvalcaba, ABORIGINAL LIAISON OFFICER at 0637 TBH MCV85.481.0 - 99.0 fLTBHTBH MCH28.226.7 - 34.0 pgTBHTBH MCHC33.029.9 - 35.2 g/dLTBHTBH RDW13.111.0 - 15.0 %TBHTBH QNS875545 - 450 10 3/uLTBHTBH MPV10.89.5 - 13.5 [...] DOCLINISYNCFinal Result Performing OrganizationAddressCity/State/ZIP CodePhone Number TRACE TB * [facility] DRUG SCREEN RAPID (URINE) (06/17/2025 11:55 PM [...] DOCLINISYNCFinal Result Performing OrganizationAddressCity/State/ZIP CodePhone Number VERITOISYNC TBH * (ABNORMAL) HP CBC WITH PLATELET NO DIFFERENTIAL (06/17/2025 11:50 PM EST) ComponentValueRef RangeTest MethodAnalysis TimePerformed AtPathologist SignatureTBH WBC9.54.0 - 11.0 10 3/uLTBHTBH RBC3.52(L)4.20 - 5.40 10 6/uLTBH TBH HGB9.9(L)12.0 - 16.0 g/dLTBHTBH HCT29.6(L)36.0 - 48.0 %TBHTBH MCV84.181.0 - 99.0 fLTBHTBH MCH28.126.7 - 34.0 pgTBHTBH MCHC33.429.9 - 35.2 g/dLTBHTBH RDW 12.411.0 - 15.0 %TBHTBH LPG717884 - 450 10 3/uLTBHTBH MPV10.99.5 - 13.5 fLTBH Specimen (Source)Anatomical Location / LateralityCollection Method / Volume Collection TimeReceived Time06/17/2025 11:50 PM EST06/18/2025 12:08 AM EST Narrative CLINISYNC - 06/18/2025 12:11 AM EST Authorizing ProviderResult TypeResult StatusCorey Jossue DOCLINISYNCFinal Result Performing OrganizationAddressCity/State/ZIP CodePhone Number LEEANNANC TB * US OB BPP W NON-STRESS (06/11/2025 3:59 PM EST) Only the most recent of2 resultswithin the time period is included. Anatomical RegionLateralityModalityOtherSpecimen (Source)Anatomical Location / LateralityCollection Method / VolumeCollection TimeReceived Time06/11/2025 3:59 PM EST Narrative 06/11/2025 4:01 PM EST [facility] ?[address] ? [place] [address] ? Ultrasound Report ? Signed ? Patient: SHEFALI,CHRIST L ?MR#: [id number] ?? : 2000 ?Acct:[id number] ?? Age/Sex: 25 / F ?ADM Date: 11/26/25 ?? Loc: US ? Attending Dr: Ishaan Marcum D.O. ? Ordering Physician: Ishaan Marcum D.O. ?? Date of Service: 06/11/25 ?? Procedure(s): US OB BPP w non-stress ?? Accession Number(s): [id number] ? cc: Ishaan Marcum D.O.; Physician,Non-Staff [place] ? [facility] ? [address] ? [place] [address] ? Patient Name: ?? CHRIST WALTON ? MRN: [facility]:[id number] ? date: 2000 ?Sex: F ?? Assigned Patient Location: ?? Current Patient Location: ? Accession/Order Number: [id number] ?? Exam Date: 06/11/2025 ??14:00 ?Report Date: [...] M.D. ??06/11/2025 3:59 PM ? Dictation Location: [facility]- ? Electronically authenticated by: [id number] ??Y ?? Date: 06/11/2025 ??15:59 ? Dictated By: ?Jose Manuel Guan M.D. ? Signed By: ?06/11/25 1601 ? DD/ 1559 ? TD/TT: ? Branch Sales Manager: Procedure Note Radiology, Radiologist, MD - 06/16/[address] [address] Ultrasound Report Signed Patient: CHRIST WALTON LMR#: [id number] : 2000Acct:[id number] Age/Sex: 25 / FADM Date: 06/11/25 Loc: US Attending Dr: Ishaan Marcum D.O. Ordering Physician: Ishaan Marcum D.O. Date of Service: 06/11/25 Procedure(s): US OB BPP w non-stress Accession Number(s): [id number] cc: Ishaan Marcum D.O.; Physician,Non-Staff [place] [address] Patient Name: CHRIST WALTON MRN: [facility]:[id number] date: 2000 Sex: F Assigned Patient Location: US Current Patient Location: Accession/Order Number: [id number] Exam Date: 06/11/2025 14:00 Report Date: 06/11/2025 15:59 At the request of: ISHAAN MARCUM DO Procedure: US OB BPP w non-stress Ultrasound biophysical profile INDICATION: -induced hypertension COMPARISON: 06/04/2025 FINDINGS/IMPRESSION: Fetus is cephalic position. heart rate 147bpm. CHAI 14.2 cm. Biophysical profile 02/21 Impression dictated by: Jose Manuel Guan M.D. 06/11/2025 3:59 PM Dictation Location: [place] [address] Electronically authenticated by: [id number] Y Date: 5:59 Dictated By: Jose Manuel Guan M.D. Signed By:06/11/25 1601 DD/ 1559 TD/TT: Branch Sales Manager: Authorizing ProviderResult TypeResult StatusCorey Jossue DOCLINISYNC IMAGINGFinal [...] Location / LateralityCollection Method / VolumeCollection TimeReceived NinsPvcww26/24/2025 11:37 AM EST Narrative Authorizing ProviderResult TypeResult StatusCorey Jossue DOPOINT OF CARE TEST ENTER/EDIT ORDERABLESFinal Result * TB CREATININE (06/04/2025 4:53 PM EST) Only the most recent of2 resultswithin the time period is included. ComponentValueRef RangeTest MethodAnalysis TimePerformed AtPathologist Signature CREATININE0.690.55 - 1.02 mg/dLTBHTBH EGFR-AF BRAZILIAN>60>=60 mL/min/1.73m 2TBH TBH EGFR-NON AF BRAZILIAN>60>=60 mL/min/1.73m 2TBHSpecimen (Source)Anatomical Location / LateralityCollection Method / VolumeCollection TimeReceived Time 06/04/2025 4:53 PM EST06/04/2025 4:58 PM EST Narrative CLINISYNC - 06/04/2025 5:14 PM EST Authorizing ProviderResult TypeResult StatusCorey Jossue DOCLINISYNCFinal Result Performing OrganizationAddressCity/State/ZIP CodePhone Number CLINISYNC [facility] * SRMCOH PROTHROMBIN TIME INR W/O [...] RangeTest MethodAnalysis TimePerformed AtPathologist Signature ASPARTATE AMINO GNBCVHBOQQP0952 - 37 U/LTBHSpecimen (Source)Anatomical Location / LateralityCollection [...] ComponentValueRef RangeTest MethodAnalysis TimePerformed AtPathologist Signature ALANINE DTUIJRUEGLRSQLJP5449 - 59 U/LTBHSpecimen (Source)Anatomical Location / LateralityCollection [...] Jossue DOCLINISYNCFinal Result Performing OrganizationAddressCity/State/ZIP CodePhone Number [facility] * (ABNORMAL) ALL LDH (06/04/2025 4:53 PM EST)ComponentValueRef RangeTest Method Analysis TimePerformed AtPathologist SignatureLACTATE HAIRJHKGDBLBT416(H)81 - 234 U/LTBHSpecimen (Source)Anatomical Location / LateralityCollection Method / VolumeCollection TimeReceived Time06/04/2025 4:53 PM EST06/04/2025 4:58 PM EST Narrative CLINISYNC - 06/04/2025 5:14 PM EST Authorizing ProviderResult TypeResult StatusCorey Jossue DOCLINISYNCFinal Result Performing OrganizationAddButler Memorial Hospitalty/State/ZIP CodePhone Number [facility] * (ABNORMAL) ALL BUN (06/04/2025 4:53 [...] Signature TOTAL PROTEIN URINE RANDOM<6.0<=11.9 mg/dLTBHCREATININE URINE NQSGVS80.1420.00 - 300.00 mg/dLTBHSpecimen (Source)Anatomical Location / LateralityCollection Method / VolumeCollection TimeReceived Time06/04/2025 4:35 PM EST06/04/2025 4:58 PM EST Narrative CLINISYNC - 06/04/2025 5:12 PM EST Authorizing ProviderResult TypeResult StatusCorey Jossue DOCLINISYNCFinal Result Performing OrganizationAddressCity/State/ZIP CodePhone Number CLINISYNC [facility] * STREP GP B CHERYL (05/26/2025 [...] noted.TBHSTREP GP B NAAPerformed at: - [facility]TBHSTREP GP B [id number] [place], [place] [id number] STREP GP B NAALab Director: Kaden Merino PhD, Phone: [phone] (Source)Anatomical Location / LateralityCollection Method / VolumeCollection TimeReceived Time05/26/2025 4:00 PM EST05/26/2025 9:24 PM EST Narrative CLINISYOK - 05/29/2025 1:09 PM EST Authorizing ProviderResult TypeResult StatusAmy Bin ONEILL BLOOD ORDERABLES Final ResultPerforming OrganizationAddressCity/State/ZIP CodePhone Number [facility] * ([facility]NORM[facility]) MHPT FIBRINOGEN (04/30/2025 11:12 AM EDT)ComponentValueRef Range Test MethodAnalysis TimePerformed AtPathologist BqdnygyldJVXGRWJHAH794(H)200 - 400 mg/dLTBHSpecimen (Source)Anatomical Location / LateralityCollection Method / VolumeCollection TimeReceived Time04/30/2025 11:12 AM EDT1 11:20 AM EDT Narrative CLINISYOK - 04/30/2025 12:12 PM EDT Authorizing ProviderResult TypeResult StatusCorey Jossue DOCLINISYNCFinal Result Performing OrganizationAddressCity/State/ZIP CodePhone Number [facility] * US OB follow up transabdominal approach [...] Bin QUEZADA OB US PROCEDURES Final Result from Last 3 Months Insurance Care Teams Team MemberRelationshipSpecialtyStart DateEnd Josr [place] MD [address] [facility], [facility] [address] [place] [address] PCP - GeneralFamily Medicine11/08/24
[2025-06-22 12:45] LABS: Immature Granulocytes Abs Auto 0.17 10^3/uL (0.00-0.03); Immature Granulocytes Pct Auto 1.5 % (0.0-0.5); Lymphocytes Absolute Auto 1.5 10^3/uL (1.2-3.8); Mean Corpuscular HGB Conc 33.0 g/dL (29.9-35.2); Mean Corpuscular Hemoglobin 28.0 pg (26.7-34.0); Mean Corpuscular Volume 84.8 fL (81.0-99.0); Platelet Count 251 10^3/uL (150-450); Red Blood Count 2.11 10^6/uL (4.20-5.40); White Blood Count 11.1 10^3/uL (4.0-11.0)
[2025-06-22 12:46] LABS: Glucose Urine UA NEGATIVE (NEGATIVE)
[2025-06-22 12:50] LABS: Hematocrit 17.9 % (36.0-48.0); Hemoglobin 5.9 g/dL (12.0-16.0)
[2025-06-22 12:53] LABS: Cast Seen? NONE SEEN #/LPF (NONE SEEN); Crystals Seen? None Seen #/HPF (None Seen); Urine Culture Indicated NO
[2025-06-22 12:57] LABS: Protein Creatinine Ratio Urine 0.39; Total Protein Urine Random 17.9 mg/dL (<=11.9)
[2025-06-22 13:04] LABS: Alanine Aminotransferase 64 U/L (14-59); Albumin Globulin Ratio 0.6; Albumin Level 2.1 g/dL (3.4-5.0); Alkaline Phosphatase 130 U/L (46-116); Anion Gap 13.6; Aspartate Amino Transferase 73 U/L (15-37); Blood Urea Nitrogen 9.0 mg/dL (7.0-18.0); Calcium 8.2 mg/dL (8.5-10.1); Carbon Dioxide 25.4 mmol/L (21.0-32.0); Chloride 108 mmol/L (98-107); Estimated GFR (African America >60 (>=60 mL/min/1.73m^2); Estimated GFR (Non-African Ame >60 (>=60 mL/min/1.73m^2); Globulin 3.3 g/dL; Glucose 85 mg/dL (74-106); Potassium 4.0 mmol/L (3.5-5.1); Sodium 143 mmol/L (136-145); Total Protein 5.4 g/dL (6.4-8.2); Uric Acid 5.2 mg/dL (2.6-6.0)
[2025-06-22] MEDS: 0.9 % SODIUM CHLORIDE 1,000 ML 50 ML IV (14:27)
[2025-06-22] MEDS: MAGNESIUM-BOLUS FROM THE BAG- 40 GM/1,000 ML IV.SOLN 6 GM IV (14:27)
[2025-06-22] MEDS: MAGNESIUM SULFATE IN WATER 40 GM/1,000 ML IV.SOLN IV (14:53)
[2025-06-22] MEDS: IBUPROFEN 600 MG TABLET PO ×2 (15:29→21:37)
[2025-06-22] MEDS: ACETAMINOPHEN 500 MG TABLET 1000 MG PO (15:30)
--- NOTE | 2025-06-22 17:34 | PC.NURSE ---
1145- Pt present with for follow-up bilirubin lab for . Pt pale in color. Pt states she has is feeling unwell. Pt state she still has a headache despite taking Tylenol this AM. Pt denies vision changes but states she has ringing in ears. Pt denies chest pain but states she has some SOB. Pt states she also has a cough and had the chills last night. Pt denies epigastric pain Pt states her lochia has increased a little bit but states she is not saturating pads and has not had any clots the size of an egg or larger. VS/assess taken at this time; BP reads 146/89 and 5 min later BP reading is 164/104. Pt temp 98.0. Lung clear throughout, RR 15. DTRs +2 lowers/ unable to illicit uppers. Absent clonus. Lower extremity edema visually increased following AM assessments yesterday; +2-+3 edema to thigh level bilateral lower extremities. 1159- Dr. Ritter notified at this time. RN notifies Dr. Ritter of pt complaints and pt hx and pt current assessment. Orders received to initiate FBC PIH panel lab order set with CBC, CMP, Uric Acid, LDH, AST ALT, BUN/ Creatinine, and P:C urine; UA; IV start; LR to run at 125ml/hr; PO Procardia 20mg now once. NO further orders at this time. RN confirms and reads back.
--- NOTE | 2025-06-22 18:20 | PC.NURSE ---
Addendum entered by Yana Torres 06/22/25 18:25: NS IV rate 50 ml/hr; MGSO4 2gm/hr 50ml/hr Original Note: Brachial reflexes unable to illicit.
--- NOTE | 2025-06-22 18:21 | PC.NURSE ---
Unable to illicit brachial reflexes.
--- NOTE | 2025-06-22 18:27 | PC.NURSE ---
NS IV rate 50 ml/hr; MGSO4 2gm/hr 50ml/hr; unable to illicit upper DTRs.
--- NOTE | 2025-06-22 18:31 | PC.NURSE ---
NS IV rate 50 ml/hr; MGSO4 2gm/hr 50ml/hr; unable to illicit upper DTRs.
--- NOTE | 2025-06-22 19:10 | PC.NURSE ---
NS IV rate 50 ml/hr; MGSO4 2gm/hr 50ml/hr; unable to illicit upper DTRs.
--- NOTE | 2025-06-22 19:31 | PC.NURSE ---
NS IV rate 50 ml/hr; MGSO4 2gm/hr 50ml/hr; upper DTRs +1/ lowers +2-+3. 1 unit PRBCs completed at this time. IV site WNLs. Pt denies pain at the the site. Left AC flushes easily at this time. Blood tubing placed in biohazard to be sent to lab.
--- NOTE | 2025-06-22 19:45 | PC.NURSE ---
1615- Blood rate increased to 150ml/hr; pt tolerating infusion without difficulty; pt denies pain at IV site.
--- NOTE | 2025-06-22 19:50 | PC.NURSE ---
1455- Pt support person leaves at this time. Pt states her support person was frustrated with situation and the plan of care with blood administration. RN clarifies if pt feels safe at this time; pt states she feels safe and that the support person is just overwhelmed. Pt support person coming back later.
--- NOTE | 2025-06-22 19:52 | PC.NURSE ---
Pt complaining of SCOTT at this time. Pt given prn medications per order.
--- NOTE | 2025-06-22 19:57 | PC.NURSE ---
1420- Pt educated on MGSO4 infusion and side effects at this time.
[2025-06-22] MEDS: 0.9 % SODIUM CHLORIDE 250 ML 10 ML IV (20:38)
[2025-06-22] MEDS: DOCUSATE SODIUM 100 MG CAPSULE PO (22:37)
[2025-06-23] VITALS (55 sets, daily range): BP systolic 127–139; BP diastolic 84–93; PULSE 66–102; TEMP 36.6–36.9; O2SAT 97–99
[2025-06-23] MEDS: IBUPROFEN 600 MG TABLET PO ×2 (04:30→10:27)
[2025-06-23 05:59] LABS: Hematocrit 25.6 % (36.0-48.0); Hemoglobin 8.5 g/dL (12.0-16.0); Immature Granulocytes Abs Auto 0.49 10^3/uL (0.00-0.03); Immature Granulocytes Pct Auto 5.1 % (0.0-0.5); Lymphocytes Absolute Auto 2.1 10^3/uL (1.2-3.8); Mean Corpuscular HGB Conc 33.2 g/dL (29.9-35.2); Mean Corpuscular Hemoglobin 28.1 pg (26.7-34.0); Mean Corpuscular Volume 84.8 fL (81.0-99.0); Platelet Count 262 10^3/uL (150-450); Red Blood Count 3.02 10^6/uL (4.20-5.40); White Blood Count 9.6 10^3/uL (4.0-11.0)
[2025-06-23 06:14] LABS: Alanine Aminotransferase 92 U/L (14-59); Albumin Globulin Ratio 0.7; Albumin Level 2.2 g/dL (3.4-5.0); Alkaline Phosphatase 125 U/L (46-116); Anion Gap 7.7; Aspartate Amino Transferase 83 U/L (15-37); Blood Urea Nitrogen 5.0 mg/dL (7.0-18.0); Calcium 7.1 mg/dL (8.5-10.1); Carbon Dioxide 28.4 mmol/L (21.0-32.0); Chloride 105 mmol/L (98-107); Estimated GFR (African America >60 (>=60 mL/min/1.73m^2); Estimated GFR (Non-African Ame >60 (>=60 mL/min/1.73m^2); Globulin 3.3 g/dL; Glucose 87 mg/dL (74-106); Potassium 3.1 mmol/L (3.5-5.1); Sodium 138 mmol/L (136-145); Total Protein 5.5 g/dL (6.4-8.2)
--- NOTE | 2025-06-23 07:30 | PM.OBHP ---
OB - H&P: HPI History of Present Illness Chief complaint: PP PREECLAMPSIA : 1 Para: 1 Gestational age based on last menstrual period: pp day 4 Comments: elevated bp, headache Review of Systems ROS Status of ROS: 10 or more systems reviewed and unremarkable except as noted in history and below PFSH PFSH Surgical History [place] teeth removed ?K08.409 - Partial loss of teeth, unspecified cause, unspecified class (ICD-10) History of appendectomy ?Z90.49 - Acquired absence of other specified parts of digestive tract (ICD-10) Family History Other Family history of diabetes mellitus Family history of myocardial infarction Social History Smoking status: Smoker, status unknown Do you use any of these nicotine containing products: vaping products Highest level of school completed/degree received: Bachelor's degree Little interest or pleasure in doing things: not at all Feeling down, depressed, or hopeless: not at all Meds Home Medications and Allergies Home Medications ?Medication ?Instructions ?Recorded ?Confirmed ?Type docusate sodium 100 mg capsule 100 mg PO BID #60 caps 06/21/25 Rx (Colace) ferrous sulfate 325 mg (65 mg 325 mg PO DAILY #30 tabs 06/21/25 Rx iron) tablet ibuprofen 800 mg tablet 800 mg PO Q8H PRN pain 14 days #40 06/21/25 Rx tabs Allergies Allergy/AdvReac Type Severity Reaction Status Date / Time No Known Drug Allergies Allergy Verified 06/04/25 16:48 Exam Constitutional Vital Signs, click to edit/add: Last Vital Signs Temp 98.5 F 06/23/25 04:32 Pulse 102 H 06/22/25 23:11 Resp 16 06/23/25 04:32 BP 128/89 06/23/25 00:08 Pulse Ox 98 06/23/25 00:09 O2 Del Method Room Air 06/23/25 04:32 Documenting provider has reviewed patient's vital signs: yes Common normals: no apparent distress Respiratory Common normals: normal respiratory effort and clear to auscultation bilaterally Cardio Common normals: regular rate and regular rhythm GI Common normals: Normal to inspection, nondistended, normoactive bowel sounds present Extremity Common normals: no clubbing, cyanosis or edema and no calf tenderness Results Labs Labs: Short CBC 06/22/25 06/23/25 Range/Units 12:33 05:48 WBC 11.1 H 9.6 (4.0-11.0) 10^3/uL Hgb 5.9 L* 8.5 L (12.0-16.0) g/dL Hct 17.9 L* 25.6 L (36.0-48.0) % Plt Count 251 262 (150-450) 10^3/uL BMP 06/22/25 06/23/25 12:33 05:48 Sodium 143 138 Potassium 4.0 3.1 L Chloride 108 H 105 Carbon Dioxide 25.4 28.4 BUN 9.0 5.0 L Creatinine 0.86 0.62 Glucose 85 87 Calcium 8.2 L 7.1 L Liver Function 06/22/25 06/23/25 Range/Units 12:33 05:48 Total Bilirubin 0.4 1.2 H (0.2-1.0) mg/dL AST 73 H 83 H (15-37) U/L ALT 64 H 92 H (14-59) U/L Alkaline Phosphatase 130 H 125 H (46-116) U/L Albumin 2.1 L 2.2 L (3.4-5.0) g/dL Urine 06/22/25 Range/Units 12:00 Urine Color Lt. yellow (YELLOW) Urine Clarity Clear (CLEAR) Urine pH 6.5 (5.0-9.0) Ur Specific [place] 1.010 (1.005-1.025) Urine Protein Negative (NEG/TRACE) mg/dL Urine Glucose (UA) Negative (NEGATIVE) mg/dL OB - A/P Assessment and Plan (1) Pre-eclampsia in period: Assessment and Plan: pt given magnesium, i&o's monitored, stable liver enzymes, will add labetalol, cont to observe, consider dc home later today, anemia reviewed, 2u prbcs given (2) Acute blood loss anemia: (3) Elevated liver enzymes: Assessment and Plan: repeat liver enzymes before discharge
[2025-06-23] MEDS: LABETALOL HCL 100 MG TABLET 200 MG PO (08:09)
[2025-06-23] MEDS: MAGNESIUM SULFATE IN WATER 40 GM/1,000 ML IV.SOLN IV (10:22)
[2025-06-23] MEDS: GLYCERIN/WITCH HAZEL PADS 1 PAD TOPICAL (10:31)
[2025-06-23 18:04] LABS: Alanine Aminotransferase 106 U/L (14-59); Aspartate Amino Transferase 72 U/L (15-37)
--- NOTE | 2025-06-23 18:57 | PC.NURSE ---
1823: Dr Marcum gives discharge order and F/U BP check 06/27/25 at [facility] with visit.
== END 2025-06-23 19:45 | disposition home health service (06) ==
PROVIDERS: Obstetrics & Gynecology; Admitting Provider Obstetrics & Gynecology Gynecology; PCP Physician Assistant; Visit Provider Obstetrics & Gynecology Gynecology
DX: O14.95 Unspecified pre-eclampsia, complicating the puerperium (principal); O90.81 Anemia of the puerperium; D62 Acute posthemorrhagic anemia; O90.89 Other complications of the puerperium, not elsewhere classified; R74.8 Abnormal levels of other serum enzymes
CPT/HCPCS: 36415; 36430; 80053; 81001; 82565; 82570; 83615; 84156; 84450; 84460; 84550; 85025; 85730; 86850; 86900; 86901; 86923; 96365; 96366; 96376; G0378; G0379; J3475; P9016

== ENCOUNTER 2025-06-27 09:06 | Outpatient (OUT) | payer BC, SELFPAY ==
[2025-06-27 11:52] VITALS: BP 114/81; PULSE 73; TEMP 36.6; O2SAT 98
== END 2025-06-27 09:07 | disposition home or self-care (01) ==
PROVIDERS: PCP Physician Assistant; Visit Provider Obstetrics & Gynecology
DX: Z39.1 Encounter for care and examination of lactating mother (principal)
CPT/HCPCS: G0463

== ENCOUNTER 2025-06-30 08:11 | Outpatient (OUT) | payer BC, SELFPAY ==
--- OUTSIDE RECORDS SUMMARY | 2025-06-30 08:15 | XMS_ITS | Clinical Summary ---
Author Organization [facility] Address [address] [place] [address] Care Team Providers Care Nurse Office Name Role Phone Josr Martinez MD Primary Care Provider [phone] Allergies No known active allergies Medications MedicationSigDispense QuantityRefillsLast FilledStart DateEnd DateStatus magnesium oxide (Mag-Ox) 400 MG tablet Indications:Leg cramps in ([facility])Take 1 tablet (400 mg) by mouth Daily 30 tablet 6004/09/699983/ctive calcium carbonate (Os-Barry) 1250 (500 Ca) MG chewable tablet Chew 1 tablet DailyActive Encounters DateTypeDepartmentCare WomaPshnsvjwrjb11/12/8329Joxprw35/08/2025linisync Result Encounter NOMS External Department Unsolicited Ishaan Marcum, DO 06/21/2025linisync Result Encounter NOMS External Department Unsolicited Ishaan Marcum, DO 5Abstract [facility] [address] [facility] [place] [address] Ishaan Marcum, DO 06/20/2025linisync Result Encounter NOMS External Department Unsolicited Ishaan Marcum, DO 06/17/2025linisync Result Encounter NOMS External Department Unsolicited Ishaan Marcum, DO 06/11/2025linisync Result Encounter NOMS External Department Unsolicited Ishaan Marcum, DO 06/09/2025 11:10 AM ESTRoutine [facility] Connie MACKEY [address] [place] [address] Ishaan Marcum, DO Third trimester ([facility]); 38 weeks gestation of ([facility])06/09/2025amboo flowsheet [facility] [address] [facility] [address] Ishaan Marcum, DO 06/04/2025 3:20 PM ESTRoutine [facility] [address] [facility] [facility] [place] [address] Lissa Steward PA 37 weeks gestation of ([facility]); Third trimester ([facility]); induced hypertension, antepartum ([facility])06/04/2025linisync Result Encounter NOMS External Department Unsolicited Ishaan Marcum, DO 06/04/2025linisync Result Encounter NOMS External Department Unsolicited Ishaan Marcum, DO 06/04/2025amboo flowsheet [facility] [address] [facility] [facility] [address] Lissa Steward PA 05/29/20250992Emuiev15/10/2025 4:00 PM ESTRoutine [facility] [address] [facility] [facility] [place] [address] Lissa Steward PA Third trimester ([facility]); 36 weeks gestation of ([facility])5Clinisync Result Encounter NOMS External Department Unsolicited Lissa Steward PA 05/26/2025amboo flowsheet [facility] [address] [facility] [address] Lissa Steward PA 05/25/20251514Mjluvr52/04/2025 8:50 AM ESTRoutine [facility] [address] [facility] [facility] [place] [address] Lissa Steward PA Third trimester ([facility]); 35 weeks gestation of ([facility])05/20/2025amboo flowsheet [facility] [address] [facility] [place] [address] Lissa Steward PA 05/13/20251400Zkjqfz71/20/2025 8:40 AM EDTRoutine [facility] [address] [facility] [facility] [place] [address] Ishaan Marcum, DO 33 weeks gestation of ([facility]); Third trimester ([facility]); Leg cramps in ([facility])05/05/2025amboo flowsheet [facility] [address] [facility] [place] [address] Ishaan Marcum, 04/30/2025linisync Result Encounter NOMS External Department Unsolicited Ishaan Marcum, DO 04/30/2025Telephone [facility] [address] [facility] [place] [address] Ishana Marcum, 04/28/20253676Gyrtko95/08/2025 3:10 PM EDTRoutine [facility] [address] [facility] [address] Cristin Beckett, CELIO Third trimester ([facility]); 30 weeks gestation of ([facility])04/23/2025amboo flowsheet [facility] [address] [facility] [place] [address] Cristin Beckett, CELIO 04/16/20254599Botfmq37/24/2025 3:50 PM EDTRoutine [facility] [address] [facility] [facility] [place] [address] Ishaan Marcum, DO Third trimester ([facility]); 29 weeks gestation of ([facility]); Leg cramps in ([facility])04/09/2025 3:00 PM EDTAncillary Procedure [facility] Connie MACKEY [address] [facility] [place] [address] Size of fetus inconsistent with dates in second trimester ([facility])04/02/2025 Travelfrom Last 3 Months Family History Medical HistoryRelationNameCommentsHypertensionFatherMarkDiabetesMaternal GrandfatherDavidMigrainesMotherChristinaDiabetesPaternal GrandfatherArthurHeart failurePaternal GrandfatherArthurHypertensionPaternal GrandfatherArthurRelation NameStatusCommentsFatherMarkAliveMaternal GrandfatherDavidAliveMotherChristina AlivePaternal GrandfatherArthurAlive Social History Tobacco UseTypesPacks/DayYears UsedDateSmoking Tobacco: NeverSmokeless Tobacco: Current Tobacco Cessation:Ready to Q uit: Not Asked; Counseling Given: Not Answered Comments:Vape Alcohol UseStandard Drinks/WeekCommentsNot Currently0 (1 standard drink = 0.6 oz pure alcohol)Estimated Date of ZywgxzweObykuxbaBsi42/07/2025Based on UltrasoundSex and Gender InformationValueDate RecordedSex Assigned at BirthNot on fileLegal NozLsrxzv09/07/2024 2:18 PM EDTGender IdentityNot on fileSexual OrientationNot on file Last Filed Vital Signs Vital SignReadingTime TakenCommentsBlood Nunzuxub352/7006/09/2025 11:37 AM EST Pulse--Temperature--Respiratory Rate--Oxygen Saturation--Inhaled Oxygen Concentration--Zgbjxs30.6 kg (182 lb)06/09/2025 11:37 AM SUVIchlch637.9 cm (5' 1 )11/08/2024 10:59 AM EDTBody Mass Index34.39011/08/2024 10:59 AM EDT Plan of Treatment DateTypeDepartmentCare Team (Latest Contact Info)Vtcupqujltl46/15/2025 2:20 PM ESTPostpartum Visit NOMLatisha MACKEY [address] [place] [address] [place] [address] Ishaan Marcum DO [address] [place] [address] [place] [address] 09/04/2025 8:30 AM ESTProcedure Visit [facility] [address] [facility] [place] [address] JossueIshaan meza, DO [address] [facility] [address] [place], [place] [id number] Procedures Procedure NamePriorityDate/TimeAssociated DiagnosisCommentsCCF ALTRoutine 06/23/2025 5:43 PM EST CCF GEUXeluzmm75/08/2025 5:43 PM EST HMHP CBC WITH PLATELET NO HVIMBKAZWFAHVwhprsz42/06/2025 7:13 AM EST ALL CBC WITH AUTO PBWHSlxuqgm65/05/2025 6:24 AM EST TB DRUG SCREEN RAPID (URINE)Ywbebqt3406/17/2025 11:55 PM EST HMHP CBC WITH PLATELET NO SQWQGEUKSSGFRoqpgoh54/02/2025 11:50 PM EST US OB BPP W NON-YTZJEJ9506/11/2025 3:59 PM EST POCT URINALYSIS PJXNLNPBOodcwjf21/24/2025 11:37 AM EST 38 weeks gestation of ([facility]) US OB BPP W NON-CLGYIX6806/04/2025 11:42 PM EST CCF KJBEJianjrd64/19/2025 4:53 PM EST SRMCOH PROTHROMBIN TIME INR W/O NVIFJbefgph96/19/2025 4:53 PM EST ALL CBC WITH AUTO FHPSGtpfbkw29/19/2025 4:53 PM EST ALL HPWRowasxz73/19/2025 4:53 PM EST CCF PBPYmtgbsl38/19/2025 4:53 PM EST CCF MOYSrjppvc14/19/2025 4:53 PM EST ALL URIC NKEJTfcbzbc17/19/2025 4:53 PM EST TBH XEQGAYGGCUAmvaobp45/19/2025 4:53 PM EST ALL CUDWcrpttz32/19/2025 4:53 PM EST TBH URINE T PROTEIN CREAT ZSHSLXhdmwrc54/19/2025 4:35 PM EST POCT URINALYSIS CWXENNPDLfkyksy60/19/2025 3:33 PM EST 37 weeks gestation of ([facility]) Third trimester ([facility]) POCT URINALYSIS PEZTJNTCCvqovhj92/10/2025 4:19 PM EST 36 weeks gestation of ([facility]) STREP GP B CXAOlpraro51/10/2025 4:00 PM EST POCT URINALYSIS FMAZFJLWScgtrds21/04/2025 9:05 AM EST 35 weeks gestation of ([facility]) POCT URINALYSIS DKEUHEIZJkrrglk13/20/2025 8:46 AM EDT 33 weeks gestation of ([facility]) Third trimester ([facility]) CCF HCRYkkoghc86/15/2025 11:12 AM EDT CCF MTIIerkude19/15/2025 11:12 AM EDT ALL URIC BVJNFgplqoe37/15/2025 11:12 AM EDT TBH VFHQSQMIYRSbzbnax84/15/2025 11:12 AM EDT ALL ANEGfghome84/15/2025 11:12 AM EDT ALL CBC WITH AUTO HIGGJhtubhc92/15/2025 11:12 AM EDT MHPT ZNCWXMVUWVOfccvlx67/15/2025 11:12 AM EDT CCF SEYBYzalecn49/15/2025 11:12 AM EDT SRMCOH PROTHROMBIN TIME INR W/O NFWWNanujnm23/15/2025 11:12 AM EDT TBH URINE T PROTEIN CREAT VLSUUHfqjepv74/15/2025 10:40 AM EDT POCT URINALYSIS NYRSQPYNBzjqiwj38/08/2025 3:24 PM EDT Third trimester ([facility]) POCT URINALYSIS LSVOPEGMIevmmyx84/24/2025 3:39 PM EDT Third trimester ([facility]) US OB FOLLOW UP TRANSABDOMINAL EJJYHCPTNvuassl93/24/2025 3:15 PM EDT Size of fetus inconsistent with dates in second trimester ([facility]) from Last 3 Months Results * (ABNORMAL) CCF AST (06/23/2025 5:43 PM EST) Only the most recent of3 resultswithin the time period is included. ComponentValueRef RangeTest MethodAnalysis TimePerformed AtPathologist Signature ASPARTATE AMINO WEXOGESZXLY65(H)15 - 37 U/LTBHSpecimen (Source)Anatomical Location / LateralityCollection Method / VolumeCollection TimeReceived Time 06/23/2025 5:43 PM EST06/23/2025 5:47 PM EST Narrative CLINISYNC - 06/23/2025 6:10 PM EST Authorizing ProviderResult TypeResult StatusCorey Jossue DOCLINISYNCFinal Result Performing OrganizationAddressCity/State/ZIP CodePhone Number CLINISYDC TB * (ABNORMAL) CCF ALT (06/23/2025 5:43 PM EST) Only the most recent of3 resultswithin the time period is included. ComponentValueRef RangeTest MethodAnalysis TimePerformed AtPathologist Signature ALANINE ALZCTMVPDSXADAMK931(H)14 - 59 U/LTBHSpecimen (Source)Anatomical Location / LateralityCollection Method / VolumeCollection TimeReceived Time06/23/2025 5:43 PM EST06/23/2025 5:47 PM EST Narrative CLINISYNC - 06/23/2025 6:10 PM EST Authorizing ProviderResult TypeResult StatusCorey Jossue DOCLINISYNCFinal Result Performing OrganizationAddressCity/State/ZIP CodePhone Number CLINISYDC TB * (ABNORMAL) [facility] CBC WITH PLATELET NO DIFFERENTIAL (06/21/2025 7:13 AM EST) Only the most recent of2 resultswithin the time period is included. ComponentValueRef RangeTest MethodAnalysis TimePerformed AtPathologist Signature TBH WBC11.9(H)4.0 - 11.0 10 3/uLTBHTBH RBC2.19(L)4.20 - 5.40 10 6/uLTBHTBH HGB 6.0(LL)12.0 - 16.0 g/dLTBHComment:RESULTS CALLED TO holden dudley, rnTB HCT18.4 (LL)36.0 - 48.0 %TBHComment:RESULTS CALLED TO holden dudley, rnTB MCV84.081.0 - 99.0 fLTBHTBH MCH27.426.7 - 34.0 pgTBHTBH MCHC32.629.9 - 35.2 g/dLTBHTBH RDW14.6 11.0 - 15.0 %TBHTBH FQW311163 - 450 10 3/uLTBHTBH MPV10.49.5 - 13.5 fLTBH Specimen (Source)Anatomical Location / LateralityCollection Method / Volume Collection TimeReceived Time06/21/2025 7:13 AM EST06/21/2025 7:19 AM EST Narrative CLINISYNC - 06/21/2025 7:27 AM EST Authorizing ProviderResult TypeResult StatusCorey Jossue DOCLINISYNCFinal Result Performing OrganizationAddressCity/State/ZIP CodePhone Number CLINISYNC [facility] * (ABNORMAL) ALL CBC WITH AUTO DIFF (06/20/2025 6:24 AM EST) Only the most recent of3 resultswithin the time period is included. ComponentValueRef RangeTest MethodAnalysis TimePerformed AtPathologist Signature TB WBC19.8(H)4.0 - 11.0 10 3/uLTBHTBH RBC2.13(L)4.20 - 5.40 10 6/uLTBHTBH HGB 6.0(LL)12.0 - 16.0 g/dLTBHComment: RESULTS CALLED TO [facility] Holden Dudley RN @BY GRAY ChambersT at 0637 TB HCT18.2(LL)36.0 - 48.0 %TBHComment: RESULTS CALLED TO [facility] Holden Dudley RN @[facility] ChambersT at 0637 [facility] MCV85.481.0 - 99.0 fLTBHTBH MCH28.226.7 - 34.0 pgTBHTBH MCHC33.029.9 - 35.2 g/dLTBHTBH RDW13.111.0 - 15.0 %TBHTBH FTV269571 - 450 10 3/uLTBHTBH MPV10.89.5 - 13.5 [...] Jossue DOCLINISYNCFinal Result Performing OrganizationAddressCity/State/ZIP CodePhone Number [facility] * TB DRUG SCREEN RAPID (URINE) (06/17/2025 11:55 PM [...] CodePhone Number CLINISYNC TBH * US OB BPP W NON-STRESS (06/11/2025 3:59 PM EST) Only the most recent of2 resultswithin the time period is included. Anatomical RegionLateralityModalityOtherSpecimen (Source)Anatomical Location / LateralityCollection Method / VolumeCollection TimeReceived Time06/11/2025 3:59 PM EST Narrative 06/11/2025 4:01 PM EST [facility] ?[address] ? [place] [facility] ? Ultrasound Report ? Signed ? Patient: SHEFALI,CHRIST L ?MR#: [id number] ?? : 2000 ?Acct:[id number] ?? Age/Sex: 25 / F ?ADM Date: 06/11/25 ?? Loc: US ? Attending Dr: Ishaan Marcum D.O. ? Ordering Physician: Ishaan Marcum D.O. ?? Date of Service: 06/11/25 ?? Procedure(s): US OB BPP w non-stress ?? Accession Number(s): [id number] ? cc: Ishaan Marcum D.O.; Physician,Non-Staff M.D. ? [facility] ? [address] ? [place] [address] ? Patient Name: ?? CHRIST WALTON ? MRN: [facility]:[id number] ? date: 2000 ?Sex: F ?? Assigned Patient Location: US ?? Current Patient Location: ? Accession/Order Number: [id number] ?? Exam Date: 06/11/2025 ??14:00 ?Report Date: [...] Dictation Location: RADIO-PC-29 ? Electronically authenticated by: [id number] ??Y ?? Date: 06/11/2025 ??15:59 ? Dictated By: ?Jose Manuel Guan M.D. ? Signed By: ?06/11/ 1601 ? DD/DT: 06/11/ 1559 ? TD/TT: ? [employer]: Procedure Note Radiology, Radiologist, - 06/16/2025 [place] [address] Ultrasound Report Signed Patient: CHRIST WALTON LMR#: [id number] : 2000Acct:[id number] Age/Sex: M Date: 06/11/25 Loc: US Attending Dr: Ishaan Marcum D.O. Ordering Physician: Ishaan Marcum D.O. Date of Service: 06/11/25 Procedure(s): US OB BPP w non-stress Accession Number(s): [id number] cc: Ishaan Marcum D.O.; Physician,Non-Staff M.Johana The [place] [id number] Patient Name: CHRIST WALTON MRN: [id number] date: 2000 Sex: F Assigned Patient Location: US Current Patient Location: Accession/Order Number: [id number] Exam Date: 06/11/2025 14:00 Report Date: 06/11/2025 15:59 At the request of: ISHAAN MARCUM DO Procedure: US OB BPP w non-stress Ultrasound biophysical profile INDICATION: -induced hypertension COMPARISON: 06/04/2025 FINDINGS/IMPRESSION: Fetus is cephalic position. heart rate 147bpm. CHAI 14.2 cm. Biophysical profile 02/21 Impression dictated by: Jose Manuel Guan M.D. 06/11/2025 3:59 PM Dictation Location: [place] [address] Electronically authenticated by: [id number] Y Date: 5:59 Dictated By: Jose Manuel Guan M.D. Signed By:06/11/25 1601 DD/ 1559 TD/TT: [employer]: Authorizing ProviderResult TypeResult StatusErichy Jossue DOCLINISYNC IMAGINGFinal Result * POCT urinalysis [...] Location / LateralityCollection Method / VolumeCollection TimeReceived HdmjLupxd54/24/2025 11:37 AM EST Narrative Authorizing ProviderResult TypeResult StatusIshaan Marcum DOPOINT OF CARE TEST ENTER/EDIT ORDERABLESFinal Result * TBH CREATININE (06/04/2025 4:53 PM EST) Only the most recent of2 resultswithin the time period is included. ComponentValueRef RangeTest MethodAnalysis TimePerformed AtPathologist Signature CREATININE0.690.55 - 1.02 mg/dLTBHTBH EGFR-AF CITIZ[place]>60>=60 mL/min/1.73m 2TBH TBH EGFR-NON AF CITIZEN [place]>60>=60 mL/min/1.73m 2TBHSpecimen (Source)Anatomical Location / LateralityCollection Method / VolumeCollection TimeReceived Time 06/04/2025 4:53 PM EST06/04/2025 4:58 PM EST Narrative CLINISYNC - 06/04/2025 5:14 PM EST Authorizing ProviderResult TypeResult StatusCorey Jossue DOCLINISYNCFinal Result Performing OrganizationAddressCity/State/ZIP CodePhone Number [facility] * SRMCOH PROTHROMBIN TIME INR W/O [...] Jossue DOCLINISYNCFinal Result Performing OrganizationAddressCity/State/ZIP CodePhone Number [facility] * CCF APTT (06/04/2025 4:53 PM EST) [...] Jossue DOCLINISYNCFinal Result Performing OrganizationAddressty/State/ZIP CodePhone Number [facility] * ALL URIC ACID (06/04/2025 4:53 PM [...] EST)ComponentValueRef RangeTest Method Analysis TimePerformed AtPathologist SignatureLACTATE WXYCHJULHSGVW043(H)81 - 234 U/LTBHSpecimen (Source)Anatomical Location / LateralityCollection [...] Signature TOTAL PROTEIN URINE RANDOM<6.0<=11.9 mg/dLTBHCREATININE URINE ZULPUG32.1420.00 - 300.00 mg/dLTBHSpecimen (Source)Anatomical Location / LateralityCollection Method / VolumeCollection TimeReceived Time06/04/2025 4:35 PM EST06/04/2025 4:58 PM EST Narrative TRACE - 06/04/2025 5:12 PM EST Authorizing ProviderResult [...] noted.TBHSTREP GP B NAAPerformed at: - [facility] PhoenixTBHSTREP GP B [id number] [place], [place] [id number] STREP GP B NAALab Director: Kaden Merino PhD, Phone: [phone] (Source)Anatomical Location / LateralityCollection Method / VolumeCollection TimeReceived Time11/04/2025 4:00 PM EST05/26/2025 9:24 PM EST Narrative CLINISYNC - 05/29/2025 1:09 PM EST Authorizing ProviderResult TypeResult StatusAmy Bin ONEILL BLOOD ORDERABLES Final ResultPerforming OrganizationAddressCity/State/ZIP CodePhone Number [facility] * (ABNORMAL) MHPT FIBRINOGEN (04/30/2025 11:12 AM EDT)ComponentValueRef Range Test MethodAnalysis TimePerformed AtPathologist CymzooqrqNESTOWKWHH527(H)200 - 400 mg/dLTBHSpecimen (Source)Anatomical Location / LateralityCollection [...] Adonay Peraza MD Authorizing ProviderResult TypeResult StatusAmy Tyronza PAIMG OB US PROCEDURES Final Result from Last 3 Months Insurance Care Teams Team MemberRelationshipSpecialtyStart DateEnd Josr Martinez MD [address] [facility], [facility] [address] [place] [id number] PCP - GeneralFamily Medicine11/08/24
--- OUTSIDE RECORDS SUMMARY | 2025-06-30 08:15 | XMS_ITS | Encounter Summary ---
Author Organization [facility] Address [address] [place] [address] Care Team Providers Care Truck Cleaner Name Role Phone Josr Martinez MD Primary Care Provider [phone] Encounter Details DateTypeDepartmentCare Team (Latest Contact Info)Cwpgcmzcaoi21/08/2025linisync Result Encounter NOMS External Department Unsolicited Edy Marcum DO [address] [place], [facility] Social History Tobacco UseTypesPacks/DayYears UsedDateSmoking Tobacco: NeverSmokeless Tobacco: Current Comments:Vape Alcohol UseStandard Drinks/WeekCommentsNot Currently0 (1 standard drink = 0.6 oz pure alcohol)Estimated Date of DshgzqmxPrpiamwlNhv76/07/2025Based on UltrasoundSex and Gender InformationValueDate RecordedSex Assigned at BirthNot on fileLegal BaqWbckqr95/07/2024 2:18 PM EDTGender IdentityNot on fileSexual OrientationNot on filedocumented as of this encounter Plan of Treatment DateTypeDepartmentCare Team (Latest Contact Info)Ksulmgkdmjf70/15/2025 2:20 PM ESTPostpartum Visit NOMLatisha MACKEY [address] [place] [address] [place] [address] Edy Marcum DO [address] [place] [address] 09/04/2025 8:30 AM ESTProcedure Visit NOMLatisha MACKEY [address] [facility] [place] [address] Edy Marcum, DO [address] [facility] [address] [place], [place] [phone] documented as of this encounter Procedures Procedure NamePriorityDate/TimeAssociated DiagnosisCommentsCCF ASTRoutine 06/23/2025 5:43 PM EST CCF IHDQxdtoqx71/08/2025 5:43 PM EST documented in this encounter Results * (ABNORMAL) CCF ALT (06/23/2025 5:43 PM EST)ComponentValueRef RangeTest Method Analysis TimePerformed AtPathologist SignatureALANINE WWBMCPEKOXTXUORQ598(H)14 - 59 U/LTBHSpecimen (Source)Anatomical Location / LateralityCollection Method / VolumeCollection TimeReceived Time06/23/2025 5:43 PM EST06/23/2025 5:47 PM EST Narrative CLINISYNC - 06/23/2025 6:10 PM EST Authorizing ProviderResult TypeResult StatusCorey Jossue DOCLINISYNCFinal Result Performing OrganizationAddressCity/State/ZIP CodePhone Number CLINISYNC TBH * (ABNORMAL) CCF AST (06/23/2025 5:43 PM EST)ComponentValueRef RangeTest Method Analysis TimePerformed AtPathologist SignatureASPARTATE AMINO HAOIGWMUFYY76(H) 15 - 37 U/LTBHSpecimen (Source)Anatomical Location / LateralityCollection Method / VolumeCollection TimeReceived Time06/23/2025 5:43 PM EST06/23/2025 5:47 PM EST Narrative CLINISYNC - 06/23/2025 6:10 PM EST Authorizing ProviderResult TypeResult StatusCorey Jossue DOCLINISYNCFinal Result Performing OrganizationAddressCity/State/ZIP CodePhone Number CLINISYNC TBH documented in this encounter Visit Diagnoses Not on filedocumented in this encounter Care Teams Team MemberRelationshipSpecialtyStart DateEnd Josr Moran MD [address] [facility], [facility] [address] [place] [phone] PCP - GeneralFamily Medicine11/08/24documented as of this encounter
--- OUTSIDE RECORDS SUMMARY | 2025-06-30 08:15 | XMS_ITS | Encounter Summary ---
Author Organization [facility] Address [address] [place] [address] Care Team Providers Care Janitorial Services Supervisor Name Role Phone Josr Martinez MD Primary Care Provider [phone] Encounter Details DateTypeDepartmentCare Team (Latest Contact Info)Xlgswbjlhtz11/12/2025Travel Social History Tobacco UseTypesPacks/DayYears UsedDateSmoking Tobacco: NeverSmokeless Tobacco: Current Comments:Vape Alcohol UseStandard Drinks/WeekCommentsNot Currently0 (1 standard drink = 0.6 oz pure alcohol)Estimated Date of ZwqfagqjKzcaidjzJlp32/07/2025Based on UltrasoundSex and Gender InformationValueDate RecordedSex Assigned at BirthNot on fileLegal JqlOawzek68/07/2024 2:18 PM EDTGender IdentityNot on fileSexual OrientationNot on filedocumented as of this encounter Plan of Treatment DateTypeDepartmentCare Team (Latest Contact Info)Iaohgsdhklv41/15/2025 2:20 PM ESTPostpartum Visit LAISHA MACKEY [address] [place] [address] [place] [address] Edy Marcum, DO [address] [facility] [place] [address] 09/04/2025 8:30 AM ESTProcedure Visit LAISHA MACKEY [address] [place] [address] [place] [address] Edy Marcum, DO [address] [facility] [place] [place] [address] documented as of this encounter Visit Diagnoses Not on filedocumented in this encounter Care Teams Team MemberRelationshipSpecialtyStart DateEnd Date Josr Martinez MD [address] [facility], [place] [address] [place] [address] PCP - GeneralFamily Medicine11/08/24documented as of this encounter
--- OUTSIDE RECORDS SUMMARY | 2025-06-30 08:15 | XMS_ITS | Encounter Summary ---
Author Organization [facility] Address [address] [place] [address] Care Team Providers Care Desk Attendant Name Role Phone Josr Martinez MD Primary Care Provider [phone] Encounter Details DateTypeDepartmentCare Team (Latest Contact Info)Xhbfbxgkleu10/02/2025linisync Result Encounter NOMS External Department Unsolicited Edy Marcum DO [address] [place] [place], [facility] Social History Tobacco UseTypesPacks/DayYears UsedDateSmoking Tobacco: NeverSmokeless Tobacco: Current Comments:Vape Alcohol UseStandard Drinks/WeekCommentsNot Currently0 (1 standard drink = 0.6 oz pure alcohol)Estimated Date of DlidxhohQrtqlbfiZdq66/07/2025Based on UltrasoundSex and Gender InformationValueDate RecordedSex Assigned at BirthNot on fileLegal NoaQfovrp55/07/2024 2:18 PM EDTGender IdentityNot on fileSexual OrientationNot on filedocumented as of this encounter Plan of Treatment DateTypeDepartmentCare Team (Latest Contact Info)Ubhmfuctsii47/15/2025 2:20 PM ESTPostpartum Visit NOMLatisha MACKEY [address] [place] [address] [place] [phone] Edy Marcum DO [address] [place] [address] 09/04/2025 8:30 AM ESTProcedure Visit NOMLatisha MACKEY [address] [facility] [place] [address] Edy Marcum, DO [address] [facility] [place] [address] documented as of this encounter Procedures Procedure NamePriorityDate/TimeAssociated DiagnosisCommentsTBH DRUG SCREEN RAPID (URINE)Sahihvz5306/17/2025 11:55 PM EST HP CBC WITH PLATELET NO AHJQRUSOCTXSPbbwdxn50/02/2025 11:50 PM EST documented in this encounter Results * [facility] DRUG SCREEN RAPID (URINE) (06/17/2025 11:55 PM [...] Performing OrganizationAddressCity/State/ZIP CodePhone Number [facility]ACE [facility] * (ABNORMAL) [facility] CBC WITH PLATELET NO DIFFERENTIAL (06/17/2025 11:50 PM EST) ComponentValueRef RangeTest MethodAnalysis TimePerformed AtPathologist SignatureTBH WBC9.54.0 - 11.0 10 3/uLTBHTBH RBC3.52(L)4.20 - 5.40 10 6/uLTBH TBH HGB9.9(L)12.0 - 16.0 g/dLTBHTBH HCT29.6(L)36.0 - 48.0 %TBHTBH MCV84.181.0 - 99.0 fLTBHTBH MCH28.126.7 - 34.0 pgTBHTBH MCHC33.429.9 - 35.2 g/dLTBHTBH RDW 12.411.0 - 15.0 %TBHTBH VLM508497 - 450 10 3/uLTBHTBH MPV10.99.5 - 13.5 fLTBH Specimen (Source)Anatomical Location / LateralityCollection Method / Volume Collection TimeReceived Time06/17/2025 11:50 PM EST06/18/2025 12:08 AM EST Narrative CLINISYNC - 06/18/2025 12:11 AM EST Authorizing ProviderResult TypeResult StatusCorey Jossue DOCLINISYNCFinal Result Performing OrganizationAddressCity/State/ZIP CodePhone Number TRACE TB documented in this encounter Visit Diagnoses Not on filedocumented in this encounter Care Teams Team MemberRelationshipSpecialtyStart DateEnd Date Josr Martinez MD [address] [facility], [facility] [address] [place] [address] PCP - GeneralFamily Medicine11/08/24documented as of this encounter
--- OUTSIDE RECORDS SUMMARY | 2025-06-30 08:15 | XMS_ITS | Clinical Summary ---
Author Organization [facility] Address [address] [place] [address] Phone Care Team Providers Care Mate Ship Name Role Phone Josr Martinez PA-C Primary Care Provider [phone] Allergies No known active allergies Medications MedicationSigDispense [...] Additional Information Patient not taking.Reported on 11/19/2024 6-RAVI-WRGVX ACID-OM3 ORAL Take by mouth.Active Active Problems ProblemNoted DateDiagnosed DateLow blood sugar03/21/2023Low vitamin B12 level 03/21/2023Vitamin D yqekmqscksfoa56/05/2023Elevated bmpuuttje76/05/2023 Siaklhzdtptgo07/05/2023remenstrual rwbuoxeo87/05/2023remenstrual syndrome 03/21/2023eneralized anxiety hbharrrq69/14/2023 Family History Medical HistoryRelationNameCommentsHypertensionFatherDiabetesMaternal GrandfatherAlzheimer's diseaseMaternal GrandmotherDiabetesPaternal Grandfather Heart diseasePaternal GrandfatherRelationNameStatusCommentsFatherMaternal GrandfatherMaternal GrandmotherPaternal Grandfather Social History Tobacco UseTypesPacks/DayYears UsedDateSmoking Tobacco: NeverSmokeless Tobacco: Never Tobacco Cessation:Counseling Given: Not Answered PHQ-2AnswerDate RecordedPatient Health Questionnaire-2 Faqgx686 CommentsUnknownSex and Gender InformationValueDate RecordedSex Assigned at Qjzixm8201/09/2024 2:41 PM EDTLegal OovXfjeez61/25/2022 10:21 PM ESTGender VdnohnmyZwlxkj47/25/2024 2:41 PM EDTSexual OrientationNot on file Last Filed Vital Signs Vital SignReadingTime TakenCommentsBlood Flzvdumt568/78011/19/2024 7:27 AM EDT Guhgr927811/19/2024 7:27 AM ZTPXithskvtywj45.6 ??C (97.8 ??F)09/18/2024 3:27 PM ESTRespiratory Uzmm259409/18/2024 3:27 PM ESTOxygen Mbhrwwrsjl31%11/19/2024 7:27 AM EDTInhaled Oxygen Concentration--Zocxmm33.3 kg (144 lb)11/19/2024 7:27 AM EDT Ridwig921.8 cm (5' 2.5 )11/19/2024 7:27 AM EDTBody Mass Index25.9211/19/2024 7:27 AM EDT Plan of Treatment DateTypeDepartmentCare Team (Latest Contact Info)Tfcwkksnckp06/07/2026 8:00 AM EDTOffice Visit [facility] [address] [place] [address] Josr Martinez PA-C [address] [facility], [address] [place] [address] Health MaintenanceDue DateLast DoneCommentsHIV Htnydcryg1998Lipid Panel 1998MMR Vaccines (1 of 1 - Standard series)1999Hepatitis C Screening 01/24/2016Hepatitis B Vaccines (1 of 3 - 19+ 3-dose series)2017HPV/Cotest 2019DTaP/Tdap/Td Vaccines (1 - Tdap)01/24/2020HPV Vaccines (1 - 3-dose standard series)2025Influenza Vaccine (#1)5COVID-19 Vaccine (1 - season)5Yearly Adult Irhzieah28/26/80385808/10/2023, 07/27/2022, 09/25/2020ervical Cancer Feviwigvs37/25/2027Pap Smear7108/10/2023, 07/29/2021Zoster Vaccines (1 of 2)01/24/2048HIB VaccinesAged [...] Type:Not on file Address: [address] Care Teams Team MemberRelationshipSpecialtyStart DateEnd Josr Moran PA-C [address] [facility], [place] [address] PCP - GeneralFamily Medicine11/24/23
--- OUTSIDE RECORDS SUMMARY | 2025-06-30 08:15 | XMS_ITS | Encounter Summary ---
Author Organization [facility] Address [address] [place] [address] Care Team Providers Care Prize Fighter Name Role Phone Josr Martinez MD Primary Care Provider [phone] Encounter Details DateTypeDepartmentCare Team (Latest Contact Info)Fhjfheklvzh63/06/2025linisync Result Encounter NOMS External Department Unsolicited Edy Marcum DO [address] [place] [address]a [place], [facility]11 Social History Tobacco UseTypesPacks/DayYears UsedDateSmoking Tobacco: NeverSmokeless Tobacco: Current Comments:Vape Alcohol UseStandard Drinks/WeekCommentsNot Currently0 (1 standard drink = 0.6 oz pure alcohol)Estimated Date of GxvnvtbpOgqqaiaxOqm54/07/2025Based on UltrasoundSex and Gender InformationValueDate RecordedSex Assigned at BirthNot on fileLegal IovBvzfle03/07/2024 2:18 PM EDTGender IdentityNot on fileSexual OrientationNot on filedocumented as of this encounter Plan of Treatment DateTypeDepartmentCare Team (Latest Contact Info)Dburmlelbfz42/15/2025 2:20 PM ESTPostpartum Visit NOMLatisha MACKEY [address] [place] [address] [place] [phone] Edy Marcum DO [address] [place] [address] 09/04/2025 8:30 AM ESTProcedure Visit NOMLatisha MACKEY [address] [facility] [place] [place] [address] Edy Marcum DO [address] [facility] [address] [place], [place] [address] documented as of this encounter Procedures Procedure NamePriorityDate/TimeAssociated DiagnosisComments[facility] CBC WITH PLATELET NO QWERRWJLGPMLJbkvjnx28/06/2025 7:13 AM EST documented in this encounter Results * (ABNORMAL) [facility] CBC WITH PLATELET NO DIFFERENTIAL (06/21/2025 7:13 AM EST) ComponentValueRef RangeTest MethodAnalysis TimePerformed AtPathologist SignatureTBH WBC11.9(H)4.0 - 11.0 10 3/uLTBHTBH RBC2.19(L)4.20 - 5.40 10 6/uL TBHTBH HGB6.0(LL)12.0 - 16.0 g/dLTBHComment:RESULTS CALLED TO holden dudley rn TB HCT18.4(LL)36.0 - 48.0 %TBHComment:RESULTS CALLED TO [facility]en dudley rnTB MCV84.081.0 - 99.0 fLTBHTBH MCH27.426.7 - 34.0 pgTBHTBH MCHC32.629.9 - 35.2 g/dLTBHTBH RDW14.611.0 - 15.0 %TBHTBH AKL831183 - 450 10 3/uLTBHTBH MPV10.49.5 - 13.5 fLTBHSpecimen (Source)Anatomical Location / LateralityCollection Method / VolumeCollection TimeReceived Time06/21/2025 7:13 AM EST06/21/2025 7:19 AM EST Narrative CLINISYNC - 06/21/2025 7:27 AM EST Authorizing ProviderResult TypeResult StatusCorey Jossue DOCLINISYNCFinal Result Performing OrganizationAddressCity/State/ZIP CodePhone Number CLINISYNC TBH documented in this encounter Visit Diagnoses Not on filedocumented in this encounter Care Teams Team MemberRelationshipSpecialtyStart DateEnd Date Josr Martinez MD [address] [facility], [address] [place] [address] PCP - GeneralFamily Medicine11/08/24documented as of this encounter
--- OUTSIDE RECORDS SUMMARY | 2025-06-30 08:15 | XMS_ITS | Encounter Summary ---
Author Organization [facility] Address [address] [place] [address] Care Team Providers Care Prick Stitcher Name Role Phone Josr Martinez MD Primary Care Provider [phone] Encounter Details DateTypeDepartmentCare Team (Latest Contact Info)Mykodcipkkn55/26/2025linisync Result Encounter NOMS External Department Unsolicited Ishaan Marcum DO [address] [place] [address], [facility]11 Social History Tobacco UseTypesPacks/DayYears UsedDateSmoking Tobacco: NeverSmokeless Tobacco: Current Comments:Vape Alcohol UseStandard Drinks/WeekCommentsNot Currently0 (1 standard drink = 0.6 oz pure alcohol)Estimated Date of IqcdonvuIdubkjurMqw56/07/2025Based on UltrasoundSex and Gender InformationValueDate RecordedSex Assigned at BirthNot on fileLegal BnvYbzknj27/07/2024 2:18 PM EDTGender IdentityNot on fileSexual OrientationNot on filedocumented as of this encounter Plan of Treatment DateTypeDepartmentCare Team (Latest Contact Info)Iiytiiratyp60/15/2025 2:20 PM ESTPostpartum Visit NOMLatisha MACKEY [address] [place], [place] [address] [phone] Ishaan Marcum DO [address] [place] [address] 09/04/2025 8:30 AM ESTProcedure Visit NOMLatisha MACKEY [address] [facility] [place] [address] Ishaan Marcum, DO [address] [facility] [address] [place], [place] [address] documented as of this encounter Procedures Procedure NamePriorityDate/TimeAssociated DiagnosisCommentsUS OB BPP W NON-NIVYIY9006/11/2025 3:59 PM EST documented in this encounter Results * US OB BPP W NON-STRESS (06/11/2025 3:59 PM EST)Anatomical Region LateralityModalityOtherSpecimen (Source)Anatomical Location / Laterality Collection Method / VolumeCollection TimeReceived Time06/11/2025 3:59 PM EST Narrative 06/11/2025 4:01 PM EST [facility] ?[address] ? [place] [address] ? Ultrasound Report ? Signed ? Patient: SHEFALI,CHRIST L ?MR#: [id number] ?? : 2000 ?Acct:[id number] ?? Age/Sex: 25 / F ?ADM Date: 06/11/25 ?? Loc: US ? Attending Dr: Ishaan Marcum D.O. ? Ordering Physician: Ishaan Marcum D.O. ?? Date of Service: 06/11/25 ?? Procedure(s): US OB BPP w non-stress ?? Accession Number(s): [id number] ? cc: Ishaan Marcum D.O.; Physician,Non-Staff M.D. ? [facility] ? [address] ? [place] [address] ? Patient Name: ?? CHRIST MEEHAN ? MRN: [id number] ? date: 2000 ?Sex: F ?? Assigned Patient Location: US ?? Current Patient Location: ? Accession/Order Number: [id number] ?? Exam Date: 06/11/2025 ??14:00 ?Report Date: [...] Dictation Location: RADIO-PC-29 ? Electronically authenticated by: [id number] ??Y ?? Date: 06/11/2025 ??15:59 ? Dictated By: ?Jose Manuel Guan M.D. ? Signed By: ?06/11/ 1601 ? DD/ 1559 ? TD/TT: ? Sde: Procedure Note Radiology, Radiologist, MD - 06/16/2025 [place] [address] Ultrasound Report Signed Patient: CHRIST MEEHAN LMR#: [id number] : 2000Acct:[id number] Age/Sex: 25 / FADM Date: 06/11/25 Loc: US Attending Dr: Ishaan Marcum D.O. Ordering Physician: Ishaan Marcum D.O. Date of Service: 06/11/25 Procedure(s): US OB BPP w non-stress Accession Number(s): [id number] cc: Ishaan Marcum D.O.; Physician,Non-Staff MLara The [place] [id number] Patient Name: CHRIST MEEHAN MRN: [id number] date: 2000 Sex: F Assigned Patient Location: US Current Patient Location: Accession/Order Number: [id number] Exam Date: 06/11/2025 14:00 Report Date: 06/11/2025 15:59 At the request of: ISHAAN MARCUM DO Procedure: US OB BPP w non-stress Ultrasound biophysical profile INDICATION: -induced hypertension COMPARISON: 06/04/2025 FINDINGS/IMPRESSION: Fetus is cephalic position. heart rate 147bpm. CHAI 14.2 cm. Biophysical profile 02/21 Impression dictated by: Jose Manuel Guan M.D. 06/11/2025 3:59 PM Dictation Location: [place] [address] Electronically authenticated by: [id number] Y Date: 5:59 Dictated By: Jose Manuel Guan M.D. Signed By:06/11/25 1601 DD/ 1559 TD/TT: Sde: Authorizing ProviderResult TypeResult StatusCorey Jossue DOCLINISYNC IMAGINGFinal Result documented in this encounter Visit Diagnoses Not on filedocumented in this encounter Care Teams Team MemberRelationshipSpecialtyStart DateEnd Date Josr Martinez MD [facility] [facility], [place] [address] PCP - GeneralFamily Medicine11/08/24documented as of this encounter
--- OUTSIDE RECORDS SUMMARY | 2025-06-30 08:15 | XMS_ITS | Encounter Summary ---
Author Organization [facility] Address [address] [place] [address] Care Team Providers Care Operating Engineer Apprentice Name Role Phone Josr Martinez MD Primary Care Provider [phone] Encounter Details DateTypeDepartmentCare Team (Latest Contact Info)Dotyphjrfso74/05/2025linisync Result Encounter NOMS External Department Unsolicited Edy Marcum DO [address] [place] Amina [place], [facility]11 Social History Tobacco UseTypesPacks/DayYears UsedDateSmoking Tobacco: NeverSmokeless Tobacco: Current Comments:Vape Alcohol UseStandard Drinks/WeekCommentsNot Currently0 (1 standard drink = 0.6 oz pure alcohol)Estimated Date of MjxfjeloFrkgqcjaDps82/07/2025Based on UltrasoundSex and Gender InformationValueDate RecordedSex Assigned at BirthNot on fileLegal IhcKhmipj66/07/2024 2:18 PM EDTGender IdentityNot on fileSexual OrientationNot on filedocumented as of this encounter Plan of Treatment DateTypeDepartmentCare Team (Latest Contact Info)Fwtivxknybf54/15/2025 2:20 PM ESTPostpartum Visit NOMLatisha MACKEY [address] [place] [address] [place] [phone] Edy Marcum DO [address] [place] [address] 09/04/2025 8:30 AM ESTProcedure Visit NOMLatisha MACKEY [address] [facility] [address] Edy Marcum, DO [address] [facility] [place] [address] documented as of this encounter Procedures Procedure NamePriorityDate/TimeAssociated DiagnosisCommentsALL CBC WITH AUTO WZFAFgjqfyv76/05/2025 6:24 AM EST documented in this encounter Results * (ABNORMAL) ALL CBC WITH AUTO DIFF (06/20/2025 6:24 AM EST)ComponentValueRef RangeTest MethodAnalysis TimePerformed AtPathologist SignatureTBH WBC19.8(H) 4.0 - 11.0 10 3/uLTBHTBH RBC2.13(L)4.20 - 5.40 10 6/uLTBHTBH HGB6.0(LL)12.0 - 16.0 g/dLTBHComment: RESULTS CALLED TO [facility] Jostin Jeff RN @BY Noah Ruvalcaba REGIONAL PROJECT MANAGER at 0637 TB HCT18.2(LL)36.0 - 48.0 %TBHComment: RESULTS CALLED TO [facility] Jostin Jeff RN @BY GRAY ChambersT at 0637 TBH MCV85.481.0 - 99.0 fLTBHTBH MCH28.226.7 - 34.0 pgTBHTBH MCHC33.029.9 - 35.2 g/dLTBHTBH RDW13.111.0 - 15.0 %TBHTBH DZX037752 - 450 10 3/uLTBHTBH MPV10.89.5 - 13.5 [...] Jossue DOCLINISYNCFinal Result Performing OrganizationAddressCity/State/ZIP CodePhone Number [facility] documented in this encounter Visit Diagnoses Not on filedocumented in this encounter Care Teams Team MemberRelationshipSpecialtyStart DateEnd Date Josr Martinez MD [address] [facility], [place] [address] PCP - GeneralFamily Medicine11/08/24documented as of this encounter
--- OUTSIDE RECORDS SUMMARY | 2025-06-30 08:15 | XMS_ITS | Encounter Summary ---
Author Organization [facility] Address [address] [facility] [place] [address] Care Team Providers Care Guard Driver Name Role Phone Josr Martinez MD Primary Care Provider [phone] Encounter Details DateTypeDepartmentCare Team (Latest Contact Info)Yftjqtctwwb12/05/2025bstract LAISHA MACKEY [address] [place] [address] [place] [address] Edy Marcum DO [address] [place] [address] Dr [place], [place] [address] Social History Tobacco UseTypesPacks/DayYears UsedDateSmoking Tobacco: NeverSmokeless Tobacco: Current Comments:Vape Alcohol UseStandard Drinks/WeekCommentsNot Currently0 (1 standard drink = 0.6 oz pure alcohol)Estimated Date of DrnywbpvKhjibfqmUmt51/07/2025Based on UltrasoundSex and Gender InformationValueDate RecordedSex Assigned at BirthNot on fileLegal EkeZdbntu39/07/2024 2:18 PM EDTGender IdentityNot on fileSexual OrientationNot on filedocumented as of this encounter Plan of Treatment DateTypeDepartmentCare Team (Latest Contact Info)Ptcjyoyzdbd00/15/2025 2:20 PM ESTPostpartum Visit LAISHA MACKEY [address] [place] [address] [place] [address] Edy Marcum DO [address] [place], [place] [address]Neftali [place], [facility]11 09/04/2025 8:30 AM ESTProcedure Visit NOMS Connie MACKEY [address] [facility] [address] Edy Marcum DO [address] [facility] [place] [address] documented as of this encounter Visit Diagnoses Not on filedocumented in this encounter Care Teams Team MemberRelationshipSpecialtyStart DateEnd Date Josr Martinez MD [address] [facility], [address] [place] [address] PCP - GeneralFamily Medicine11/08/24documented as of this encounter
--- NOTE | 2025-06-30 17:24 | PC.NURSE ---
Karen Tino and 11 day old Sasha arrive for weight check and support. Parents appear relaxed, happy, more rested. Karen shares that no pumping, no clock watching, no shield use or supplemental bottles has relieved her stress and anxiety. States has been nursing baby on demand and feels much better with feedings. Does express that baby is taking a 4-5 hour stretch couple times a day . Discussed no stretches longer than 4 hours and only 1 a 24 hour window. States will wake baby if needed. Also does not consistently use both breasts at a feed. Encouraged to have infant use both and may eliminate the 45 minute interval between some of the feeds. Infant weight up 3 oz from weight on 06/27/2025. BW 3545 gm, 3317 gm on Monday and 3415 gm today. Mother pleased and relieved with infant weight gain. Baby to breast and nurses both breasts for total of 25 minutes. Mom states was a great feed. Parents home with baby at this time. Will call as needed.
== END 2025-06-30 17:33 | disposition home or self-care (01) ==
LOC: FBCO 08:12
PROVIDERS: PCP Physician Assistant; Visit Provider Obstetrics & Gynecology
DX: Z39.1 Encounter for care and examination of lactating mother (principal)
CPT/HCPCS: G0463

== ENCOUNTER 2025-07-14 13:23 | Outpatient (OUT) | payer BC, SELFPAY ==
--- OUTSIDE RECORDS SUMMARY | 2025-06-30 14:20 | XMS_ITS | Encounter Summary ---
Author Organization [facility] Address [address] [facility] [place] [address] Care Team Providers Care Avp Name Role Phone Josr Martinez MD Primary Care Provider [phone] Reason for Visit * ReasonCommentsBP follow up Encounter Details DateTypeDepartmentCare Team (Latest Contact Info)Jidtgwdflnm80/15/2025 2:20 PM ESTPostpartum Visit LAISHA WAREGYJessica [address] [facility] [address] [place], [facility] Edy Marcum DO [address] [facility] [address] [place], [facility]11 Essential hypertension- ([facility]) Social History Tobacco UseTypesPacks/DayYears UsedDateSmoking Tobacco: NeverSmokeless Tobacco: Current Comments:Vape Alcohol UseStandard Drinks/WeekCommentsNot Currently0 (1 standard drink = 0.6 oz pure alcohol)CommentsNoSex and Gender InformationValueDate RecordedSex Assigned at BirthNot on fileLegal SazMnqosn50/07/2024 2:18 PM EDTGender Identity Not on fileSexual OrientationNot on filedocumented as of this encounter Last Filed Vital Signs Vital SignReadingTime TakenCommentsBlood Lgfpubdw558/8406/30/2025 2:57 PM EST Pulse--Temperature--Respiratory Rate--Oxygen Saturation--Inhaled Oxygen Concentration--Jtsego16.9 kg (154 lb)06/30/2025 2:57 PM ESTHeight--Body Mass Index29. 10:59 AM EDTdocumented in this encounter Progress Notes * Shirley Amaya, FLOAT BUILDER - 06/30/2025 2:20 PM EST Reason for Appointment: Patient ID: Karen Walton is a 25 y.o. female who presents for No chief complaint on file. Patient presents today for BP follow up. MEDICATIONS Current Outpatient Medications Medication Instructions calcium [...] nursing note reviewed. Exam conducted with a regulatory affairs analyst present. Vitals: Estimated body mass index is 34.39 kg/m?? as calculated from the following: Height as of 11/08/24: 5' 1 . Weight as of 06/09/25: 182 lb. BP: Patient's last menstrual period was 09/06/2024. Assessment/Plan ICD-10-CM 1. Essential hypertension- (HHS-HCC) O10.03 Assessment/Plan Patient is currently taking Labetalol 200mg PO BID. Patient is currently breast feeding. Patient did have a bout of dizziness a few days ago and not sure if that is due to low BP or not drinking enough fluids. Recommend that she include electrolyte replacement with Gatorade light / liquid IV Pt will decrease 100 mg BID and then will evaluate next week and discuss discontinuing Labetalol if pressures are improving. Documented by Shirley Amaya LPN on behalf of: Edy Marcum DO documented in this encounter Plan of Treatment DateTypeDepartmentCare Team (Latest Contact Info)Bqodfkzmiiv55/19/2026 1:50 PM ESTPostpartum Visit NOMS Connie MACKEY [address] [facility] [place] [address] Lissa Steward PA [address] [facility] [address] [place], [place] [address] 09/04/2025 8:30 AM ESTProcedure Visit NOMLatisha MACKEY [address] [facility] [place] [address] Edy Marcum DO [address] [facility] [address] [place], [place] [id number] documented as of this encounter Visit Diagnoses Diagnosis Essential hypertension- (HHS-HCC) Benign essential hypertension, previous complication documented in this encounter Care Teams Team MemberRelationshipSpecialtyStart DateEnd Date Josr Martinez MD [address] [facility], [address] [place] [id number] PCP - GeneralFamily Medicine11/08/24documented as of this encounter
--- OUTSIDE RECORDS SUMMARY | 2025-07-07 15:00 | XMS_ITS | Encounter Summary ---
Author Organization [facility] Address [address] [place] [address] Care Team Providers Care Baffle Installer Name Role Phone Josr Martinez MD Primary Care Provider Reason for Visit * ReasonCommentsBlood Pressure Check Encounter Details DateTypeDepartmentCare Team (Latest Contact Info)Ptosgjiyoih64/22/2025 3:00 PM ESTClinical Support [facility] MAC[facility] [address] [place] [address] [place] [address] BP check Social History Tobacco UseTypesPacks/DayYears UsedDateSmoking Tobacco: NeverSmokeless Tobacco: Current Comments:Vape Alcohol UseStandard Drinks/WeekCommentsNot Currently0 (1 standard drink = 0.6 oz pure alcohol)CommentsNoSex and Gender InformationValueDate RecordedSex Assigned at BirthNot on fileLegal GfgSzyinr81/07/2024 2:18 PM EDTGender Identity Not on fileSexual OrientationNot on filedocumented as of this encounter Last Filed Vital Signs Vital SignReadingTime TakenCommentsBlood Onpallkv351/7007/07/2025 3:27 PM EST Pulse--Temperature--Respiratory Rate--Oxygen Saturation--Inhaled Oxygen Concentration--Ibqxfg43.2 kg (154 lb 12.8 oz)07/07/2025 3:27 PM ESTHeight--Body Mass Index29.25011/08/2024 10:59 AM EDTdocumented in this encounter Progress Notes * Dolly Sinclair LPN - 07/07/2025 3:00 PM EST Pt presents today for a BP check. Today's BP is 122/70. At last appointment, Labetalol went from 200mg BID to 100mg BID. Per Lissa Steward PA-C, labetalol was changed to 100mg daily. Pt to return for a BP check next week. PVU documented in this encounter Plan of Treatment DateTypeDepartmentCare Team (Latest Contact Info)Beziojttqru47/19/2026 1:50 PM ESTPostpartum Visit [facility] Connie MACKEY [address] [place] [phone] Lissa Steward PA [address] [facility] [address] [place], [place] [id number] 09/04/2025 8:30 AM ESTProcedure Visit [facility] Connie MACKEY [address] [place] [phone] Edy Marcum DO [address] [facility] [address] [place], [place] [id number] documented as of this encounter Visit Diagnoses Diagnosis BP check Screening for hypertension documented in this encounter Care Teams Team MemberRelationshipSpecialtyStart DateEnd Date Josr Martinez MD [address] [facility], [facility] [address] [phone] PCP - GeneralFamily Medicine11/08/24documented as of this encounter
--- OUTSIDE RECORDS SUMMARY | 2025-07-14 13:00 | XMS_ITS | Encounter Summary ---
Author Organization [facility] Address [address] [facility] [place] [address] Care Team Providers Care Chart Writer Name Role Phone Josr Martinez MD Primary Care Provider [phone] Reason for Visit * ReasonCommentsBlood Pressure Check Encounter Details DateTypeDepartmentCare Team (Latest Contact Info)Wzcpbvqpsnf95/29/2025 1:00 PM ESTClinical Support [facility] Connie MACKEY [address] [place] [address] [place] [address] BP check; Anemia, unspecified type Social History Tobacco UseTypesPacks/DayYears UsedDateSmoking Tobacco: NeverSmokeless Tobacco: Current Comments:Vape Alcohol UseStandard Drinks/WeekCommentsNot Currently0 (1 standard drink = 0.6 oz pure alcohol)CommentsNoSex and Gender InformationValueDate RecordedSex Assigned at BirthNot on fileLegal QbfZvnify30/07/2024 2:18 PM EDTGender Identity Not on fileSexual OrientationNot on filedocumented as of this encounter Last Filed Vital Signs Vital SignReadingTime TakenCommentsBlood Hqpeyurl022/7007/14/2025 1:07 PM EST Pulse--Temperature--Respiratory Rate--Oxygen Saturation--Inhaled Oxygen Concentration--Xmrlei74.5 kg (157 lb 9.6 oz)07/14/2025 1:07 PM ESTHeight--Body Mass Index29.7804 10:59 AM EDTdocumented in this encounter Progress Notes * Roxane Zaidi LPN - 07/14/2025 1:00 PM EST Patient presents for Blood Pressure check. Patient pressure WNL. Patient did have questions on her iron if she should continue or stop this. Patient was in ER and HGB was 6 she did get 2 units and numbers went to 8.6. Spoke with provider she is able to stop Labetalol and we will order CBC and if WNL she can stop Iron. Patient was given order and will have drawn today prior to going home. documented in this encounter Plan of Treatment DateTypeDepartmentCare Team (Latest Contact Info)Qefaiaqbsqv73/19/2026 1:50 PM ESTPostpartum Visit NOMLatisha MACKEY [address] [facility] [place] [phone] Lissa Steward PA [address] [facility] [address] [place], [place] [id number] 09/04/2025 8:30 AM ESTProcedure Visit NOMLatisha MACKEY [address] [facility] [place] [phone] Edy Marcum DO [address] [facility] [address] [place], [place] [phone] NameTypePriorityAssociated DiagnosesOrder ScheduleCBC and differentialLabRoutine Anemia, unspecified type Expected: 07/14/2025 (Approximate), Expires: 07/14/2026documented as of this encounter Visit Diagnoses Diagnosis BP check Screening for hypertension Anemia, unspecified type documented in this encounter Care Teams Team MemberRelationshipSpecialtyStart DateEnd Date Josr Martinez MD [address] [facility], [facility] [address] [phone] PCP - GeneralFamily Medicine11/08/24documented as of this encounter
--- OUTSIDE RECORDS SUMMARY | 2025-07-14 13:27 | XMS_ITS | Encounter Summary ---
Author Organization [facility] Address [address] [facility] [place] [address] Care Team Providers Care Foreclosure Field Inspector Name Role Phone Josr Martinez MD Primary Care Provider [phone] Encounter Details DateTypeDepartmentCare Team (Latest Contact Info)Ewyyaccptym37/16/2025Travel Social History Tobacco UseTypesPacks/DayYears UsedDateSmoking Tobacco: NeverSmokeless Tobacco: Current Comments:Vape Alcohol UseStandard Drinks/WeekCommentsNot Currently0 (1 standard drink = 0.6 oz pure alcohol)CommentsNoSex and Gender InformationValueDate RecordedSex Assigned at BirthNot on fileLegal IqySgoqwy43/07/2024 2:18 PM EDTGender Identity Not on fileSexual OrientationNot on filedocumented as of this encounter Plan of Treatment DateTypeDepartmentCare Team (Latest Contact Info)Ceqhhfukblc92/19/2026 1:50 PM ESTPostpartum Visit LAISHA MACKEY [address] [place] [address] [place] [address] Lissa Steward PA [address] [facility] [address] [place], [facility] 09/04/2025 8:30 AM ESTProcedure Visit LAISHA MACKEY [address] [place] [address] [place] [address] Edy Marcum DO [address] [facility] [place] [address] documented as of this encounter Visit Diagnoses Not on filedocumented in this encounter Care Teams Team MemberRelationshipSpecialtyStart DateEnd Date Josr Martinez MD [address] [facility], [facility] [address] [place] [address] PCP - GeneralFamily Medicine11/08/24documented as of this encounter
--- OUTSIDE RECORDS SUMMARY | 2025-07-14 13:27 | XMS_ITS | Clinical Summary ---
Author Organization [facility] Address [address] [facility] [facility] [place] [address] Care Team Providers Care Terminal Carman Name Role Phone Josr Martinez MD Primary Care Provider [phone] Allergies No known active allergies Medications MedicationSigDispense QuantityRefillsLast FilledStart DateEnd DateStatus calcium carbonate (Os-Barry) 1250 (500 Ca) MG chewable tablet Chew 1 tablet DailyActive labetalol (Normodyne) 200 MG tablet Take 200 mg by mouth in the morning and 200 mg before bedtime.Active magnesium oxide (Mag-Ox) 400 MG tablet Indications:Leg cramps in ([facility])Take 1 tablet (400 mg) by mouth Daily 30 tablet 60Discontinued Encounters DateTypeDepartmentCare NnkeVdgvagsveqj85/29/2025 1:00 PM ESTClinical Support NOMLat[facility] [address] BP check; Anemia, unspecified type07/08/20256743Cqlkst26/22/2025 3:00 PM ESTClinical Support NOMLat[facility] [address] BP check07/01/20256911Zxtokv47/15/2025 2:20 PM ESTPostpartum Visit NOMLatisha MACKEY [address] [place] [address] Ishaan Marcum DO Essential hypertension- ([facility])06/27/20255571Ngedgt08/09/2025Abstract [facility] [place] [facility] [address] [place] [address] Ishaan Marcum, DO 06/24/2025bstract [facility] [place] [facility] [address] [facility] [place] [place] [address] Ishaan Marcum, DO 06/24/2025bstract [facility] [place] [facility] [address] [facility] [place] [address] Ishaan Marcum, DO 5Clinisync Result Encounter NOMS External Department Unsolicited Ishaan Marcum, DO 5Clinisync Result Encounter NOMS External Department Unsolicited Ishaan Marcum, DO 06/20/2025bstract [facility] [place] [facility] [address] [facility] [place] [place] [address] Ishaan Marcum, DO 5Clinisync Result Encounter NOMS External Department Unsolicited Ishaan Marcum, DO 06/19/2025bstract [facility] [place] [facility] [address] [facility] [place] [address] Ishaan Marcum, DO 5Clinisync Result Encounter NOMS External Department Unsolicited Ishaan Marcum, DO 5Clinisync Result Encounter NOMS External Department Unsolicited Ishaan Marcum, DO 06/09/2025 11:10 AM ESTRoutine [facility] [address] [place] [phone] Ishaan Marcum, DO Third trimester ([facility]); 38 weeks gestation of ([facility])5Bamboo flowsheet [facility] [address] [place] [phone] Ishaan Marcum, DO 06/04/2025 3:20 PM ESTRoutine [facility] [place] [facility] [address] [facility] [place] [address] Lissa Steward PA 37 weeks gestation of ([facility]); Third trimester ([facility]); induced hypertension, antepartum ([facility])06/04/2025linisync Result Encounter NOMS External Department Unsolicited JossueErich mezay, DO 06/04/2025linisync Result Encounter NOMS External Department Unsolicited Jossue Ishaan, DO 06/04/2025amboo flowsheet [facility] [address] [place] [address] Lissa Steward PA 05/29/20254131Qvacnd21/10/2025 4:00 PM ESTRoutine [facility] [address] [place] [place] [address] Lissa Steward PA Third trimester ([facility]); 36 weeks gestation of ([facility])05/26/2025linisync Result Encounter NOMS External Department Unsolicited Lissa Steward PA 05/26/2025amboo flowsheet [facility] [place] [facility] [address] [place] [place] [address] Lissa Steward PA 05/25/20250310Bdxpze93/04/2025 8:50 AM ESTRoutine [facility] [place] [facility] [address] [place] [place] [address] Lissa Steward PA Third trimester ([facility]); 35 weeks gestation of ([facility])05/20/2025amboo flowsheet [facility] [address] [place] [place] [address] Lissa Steward PA 05/13/20251347Pkhqlc70/20/2025 8:40 AM EDTRoutine [facility] [place] [facility] [address] [place] [place] [address] Ishaan Marcum, DO 33 weeks gestation of ([facility]); Third trimester ([facility]); Leg cramps in ([facility])05/05/2025amboo flowsheet [facility] [address] [place] [place] [address] Ishaan Marcum, DO 04/30/2025linisync Result Encounter NOMS External Department Unsolicited Ishaan Marcum, DO 04/30/2025Telephone [facility] [address] [place] [place] [address] Ishaan Marcum, DO 04/28/20254475Ekyihy37/08/2025 3:10 PM EDTRoutine [facility] [address] [place] [place] [address] Cristin Beckett NP Third trimester ([facility]); 30 weeks gestation of ([facility])04/23/2025amboo flowsheet [facility] [address] [place] [address] Cristin Beckett NP 04/16/2025Travelfrom Last 3 Months Family History Medical HistoryRelationNameCommentsHypertensionFatherMarkDiabetesMaternal GrandfatherDavidMigrainesMotherChristinaDiabetesPaternal GrandfatherArthurHeart failurePaternal GrandfatherArthurHypertensionPaternal GrandfatherArthurRelation NameStatusCommentsFatherMarkAliveMaternal GrandfatherDavidAliveMotherChristina AlivePaternal GrandfatherArthurAlive Social History Tobacco UseTypesPacks/DayYears UsedDateSmoking Tobacco: NeverSmokeless Tobacco: Current Tobacco Cessation:Ready to Q uit: Not Asked; Counseling Given: Not Answered Comments:Vape Alcohol UseStandard Drinks/WeekCommentsNot Currently0 (1 standard drink = 0.6 oz pure alcohol)CommentsNoSex and Gender InformationValueDate RecordedSex Assigned at BirthNot on fileLegal UjsXbhctb05/07/2024 2:18 PM EDTGender Identity Not on fileSexual OrientationNot on file Last Filed Vital Signs Vital SignReadingTime TakenCommentsBlood Bqfzmxxb977/7007/14/2025 1:07 PM EST Pulse--Temperature--Respiratory Rate--Oxygen Saturation--Inhaled Oxygen Concentration--Yiqcnj40.5 kg (157 lb 9.6 oz)07/14/2025 1:07 PM HLZMbebct567.9 cm (5' 1 )11/08/2024 10:59 AM EDTBody Mass Index29.78011/08/2024 10:59 AM EDT Plan of Treatment DateTypeDepartmentCare Team (Latest Contact Info)Vbazrkauaal89/19/2026 1:50 PM ESTPostpartum Visit NOM Connie MACKEY [address] [place] [address] [place] [phone] Lissa Steward PA [address] [facility] [facility] [address] [place], [place] [phone] 09/04/2025 8:30 AM ESTProcedure Visit NOMLatisha MACKEY [address] [place] [address] [place] [address] Ishaan Marcum DO [address] [place], [place] [phone] Procedures Procedure NamePriorityDate/TimeAssociated DiagnosisCommentsCCF ALTRoutine 06/23/2025 5:43 PM EST CCF KVGTuucgyc95/08/2025 5:43 PM EST HMHP CBC WITH PLATELET NO FKMTMVYGBYXIEywdxqe67/06/2025 7:13 AM EST ALL CBC WITH AUTO KMFSOhnwsiv42/05/2025 6:24 AM EST [facility] DRUG SCREEN RAPID (URINE)Ubsclxo9006/17/2025 11:55 PM EST HMHP CBC WITH PLATELET NO JASQSHKTTXHTWvwahgl80/02/2025 11:50 PM EST US OB BPP W NON-DDKCBO0206/11/2025 3:59 PM EST POCT URINALYSIS IIAMBOAAZjsbkwb73/24/2025 11:37 AM EST 38 weeks gestation of ([facility]) US OB BPP W NON-XJQDJB6406/04/2025 11:42 PM EST CCF HOBLDngtunh03/19/2025 4:53 PM EST SRMCOH PROTHROMBIN TIME INR W/O SRFAFioeyza81/19/2025 4:53 PM EST ALL CBC WITH AUTO ESQTFaoxrgv71/19/2025 4:53 PM EST ALL RQEXastyhf40/19/2025 4:53 PM EST C[facility] NSYCovyjgf53/19/2025 4:53 PM EST CCF QFKFlmdnth65/19/2025 4:53 PM EST ALL URIC LIDKByzkszq51/19/2025 4:53 PM EST TBH RBMFNHIQZAXpxyrdf77/19/2025 4:53 PM EST ALL GUYTcgyfwm26/19/2025 4:53 PM EST [facility] URINE T PROTEIN CREAT PCCHUDpzsxvw39/19/2025 4:35 PM EST POCT URINALYSIS YKHGNSJZNtoadca52/19/2025 3:33 PM EST 37 weeks gestation of ([facility]) Third trimester ([facility]) POCT URINALYSIS BURYTKKLTpfixif55/10/2025 4:19 PM EST 36 weeks gestation of ([facility]) STREP GP B CIIOqghulu88/10/2025 4:00 PM EST POCT URINALYSIS NIHFUTVOEswhcza25/04/2025 9:05 AM EST 35 weeks gestation of ([facility]) POCT URINALYSIS MAYBVKZIEwvzmay65/20/2025 8:46 AM EDT 33 weeks gestation of ([facility]) Third trimester ([facility]) CCF GIKDfmarhe48/15/2025 11:12 AM EDT CCF VAOPlmwzjx49/15/2025 11:12 AM EDT ALL URIC TMCJWxfstyk46/15/2025 11:12 AM EDT TBH YIRESLXNHRXubtbds82/15/2025 11:12 AM EDT ALL BRCVagoehk71/15/2025 11:12 AM EDT ALL CBC WITH AUTO VSHSNjtmdbf94/15/2025 11:12 AM EDT MHPT BLTHFKXAUZHmxghpu92/15/2025 11:12 AM EDT CCF QSMYLtfmcsq93/15/2025 11:12 AM EDT SRMCOH PROTHROMBIN TIME INR W/O AMBGMamqsgr08/15/2025 11:12 AM EDT TBH URINE T PROTEIN CREAT BVTRKKeqorak42/15/2025 10:40 AM EDT POCT URINALYSIS FRAPRHPRQjyyzxi90/08/2025 3:24 PM EDT Third trimester ([facility]) from Last 3 Months Results * (ABNORMAL) [facility] AST (06/23/2025 5:43 PM EST) Only the most recent of3 resultswithin the time period is included. ComponentValueRef RangeTest MethodAnalysis TimePerformed AtPathologist Signature ASPARTATE AMINO KVAQYUWAQXG34(H)15 - 37 U/LTBHSpecimen (Source)Anatomical Location / LateralityCollection Method / VolumeCollection TimeReceived Time 06/23/2025 5:43 PM EST06/23/2025 5:47 PM EST Narrative [facility]NC - 06/23/2025 6:10 PM EST Authorizing ProviderResult TypeResult StatusCorey Jossue DOCLINISYNCFinal Result Performing OrganizationAddressCity/State/ZIP CodePhone Number [facility] * (ABNORMAL) [facility] ALT (06/23/2025 5:43 PM EST) Only the most recent of3 resultswithin the time period is included. ComponentValueRef RangeTest MethodAnalysis TimePerformed AtPathologist Signature ALANINE FWPXFRXCOWYKABHH937(H)14 - 59 U/LTBHSpecimen (Source)Anatomical Location / LateralityCollection Method / VolumeCollection TimeReceived Time06/23/2025 5:43 PM EST06/23/2025 5:47 PM EST Narrative CLINISYNC - 06/23/2025 6:10 PM EST Authorizing ProviderResult TypeResult StatusCorey Jossue DOCLINISYNCFinal Result Performing OrganizationAddressCity/State/ZIP CodePhone Number [facility] * (ABNORMAL) [facility] CBC WITH PLATELET NO DIFFERENTIAL (06/21/2025 7:13 AM EST) Only the most recent of2 resultswithin the time period is included. ComponentValueRef RangeTest MethodAnalysis TimePerformed AtPathologist Signature TBH WBC11.9(H)4.0 - 11.0 10 3/uLTBHTBH RBC2.19(L)4.20 - 5.40 10 6/uLTBHTBH HGB 6.0(LL)12.0 - 16.0 g/dLTBHComment:RESULTS CALLED TO Keyonna mckeon HCT18.4 (LL)36.0 - 48.0 %TBHComment:RESULTS CALLED TO Keyonna mckeon MCV84.081.0 - 99.0 fLTBHTBH MCH27.426.7 - 34.0 pgTBHTBH MCHC32.629.9 - 35.2 g/dLTBHTBH RDW14.6 11.0 - 15.0 %TBHTBH SRN993825 - 450 10 3/uLTBHTBH MPV10.49.5 - 13.5 fLTBH Specimen (Source)Anatomical Location / LateralityCollection Method / Volume Collection TimeReceived Time06/21/2025 7:13 AM EST06/21/2025 7:19 AM EST Narrative CLINISYNC - 06/21/2025 7:27 AM EST Authorizing ProviderResult TypeResult StatusCorey Jossue DOCLINISYNCFinal Result Performing OrganizationAddressCity/State/ZIP CodePhone Number [facility] * (ABNORMAL) ALL CBC WITH AUTO DIFF (06/20/2025 6:24 AM EST) Only the most recent of3 resultswithin the time period is included. ComponentValueRef RangeTest MethodAnalysis TimePerformed AtPathologist Signature [facility] WBC19.8(H)4.0 - 11.0 10 3/uLTBHTBH RBC2.13(L)4.20 - 5.40 10 6/uLTBHTBH HGB 6.0(LL)12.0 - 16.0 g/dLTBHComment: RESULTS CALLED TO [facility] Jostin Jeff RN @BY Noah Ruvalcaba MLT at 0637 TB HCT18.2(LL)36.0 - 48.0 %TBHComment: RESULTS CALLED TO [facility] Jostin Jeff RN @BY Noah Ruvalcaba MLT at 0637 TB MCV85.481.0 - 99.0 fLTBHTBH MCH28.226.7 - 34.0 pgTBHTBH MCHC33.029.9 - 35.2 g/dLTBHTBH RDW13.111.0 - 15.0 %TBHTBH JWL210507 - 450 10 3/uLTBHTBH MPV10.89.5 - 13.5 [...] Jossue DOCLINISYNCFinal Result Performing OrganizationAddressCity/State/ZIP CodePhone Number [facility] * [facility] DRUG SCREEN RAPID (URINE) (06/17/2025 11:55 PM [...] DOCLINISYNCFinal Result Performing OrganizationAddressCity/State/ZIP CodePhone Number [facility]NC [facility] * US OB BPP W NON-STRESS (06/11/2025 3:59 PM EST) Only the most recent of2 resultswithin the time period is included. Anatomical RegionLateralityModalityOtherSpecimen (Source)Anatomical Location / LateralityCollection Method / VolumeCollection TimeReceived Time06/11/2025 3:59 PM EST Narrative 06/11/2025 4:01 PM EST [facility] ?[address] ? [place] [address] ? Ultrasound Report ? Signed ? Patient: CHRIST WALTON ?MR#: [id number] ?? : 2000 ?Acct:[id number] ?? Age/Sex: 25 / F ?ADM Date: 06/11/25 ?? Loc: US ? Attending Dr: Ishaan Marcum D.O. ? Ordering Physician: Ishaan Marcum D.O. ?? Date of Service: 06/11/25 ?? Procedure(s): US OB BPP w non-stress ?? Accession Number(s): [id number] ? cc: Ishaan Marcum D.O.; Physician,Non-Staff M.D. ? [facility] ? [address] ? [place] [address] ? Patient Name: ?? CHRIST WALTON ? MRN: [facility]:[id number] ? date: 2000 ?Sex: F ?? Assigned Patient Location: US ?? Current Patient Location: ? Accession/Order Number: [id number] ?? Exam Date: 06/11/2025 ??14:00 ?Report Date: [...] Dictation Location: RADIO-PC-29 ? Electronically authenticated by: [id number] ??Y ?? Date: 06/11/2025 ??15:59 ? Dictated By: ?Jose Manuel Guan M.D. ? Signed By: ?06/11/25 1601 ? DD/ 1559 ? TD/TT: ? Spanish Lecturer: Procedure Note Radiology, Radiologist, - 06/16/2025 [place] [address] Ultrasound Report Signed Patient: CHRIST WALTON LMR#: [id number] : 2000Acct:[id number] Age/Sex: 25 / FADM Date: 06/11/25 Loc: US Attending Dr: Ishaan Marcum D.O. Ordering Physician: Ishaan Marcum D.O. Date of Service: 06/11/25 Procedure(s): US OB BPP w non-stress Accession Number(s): [id number] cc: Ishaan Marcum D.O.; Physician,Non-Staff M.D. The [address] [id number] Patient Name: CHRIST WALTON MRN: [facility]:[id number] date: 2000 Sex: F Assigned Patient Location: US Current Patient Location: Accession/Order Number: [id number] Exam Date: 06/11/2025 14:00 Report Date: 06/11/2025 15:59 At the request of: ISHAAN MARCUM DO Procedure: US OB BPP w non-stress Ultrasound biophysical profile INDICATION: -induced hypertension COMPARISON: 06/04/2025 FINDINGS/IMPRESSION: Fetus is cephalic position. heart rate 147bpm. CHAI 14.2 cm. Biophysical profile 02/21 Impression dictated by: Jose Manuel Guan M.D. 06/11/2025 3:59 PM Dictation Location: [place] [address] Electronically authenticated by: [id number] Y Date: :59 Dictated By: Jose Manuel Guan M.D. Signed By:06/11/25 1601 DD/ 1559 TD/TT: Spanish Lecturer: Authorizing ProviderResult TypeResult StatusCorey Jossue DOCLINISYNC IMAGINGFinal Result * POCT urinalysis dipstick manually resulted (06/09/2025 11:37 AM EST) Only the most recent of6 resultswithin [...] Location / LateralityCollection Method / VolumeCollection TimeReceived JtipBlchq68/24/2025 11:37 AM EST Narrative Authorizing ProviderResult TypeResult StatusCorechristi Jossue DOPOINT OF CARE TEST ENTER/EDIT ORDERABLESFinal Result * [facility] CREATININE (06/04/2025 4:53 PM EST) Only the most recent of2 resultswithin the time period is included. ComponentValueRef RangeTest MethodAnalysis TimePerformed AtPathologist Signature CREATININE0.690.55 - 1.02 mg/dLTBHTBH EGFR-AF [place]IZ[place]>60>=60 mL/min/1.73m 2TBH TBH EGFR-NON AF [place]>60>=60 mL/min/1.73m 2TBHSpecimen (Source)Anatomical Location / LateralityCollection Method / VolumeCollection TimeReceived Time 06/04/2025 4:53 PM EST06/04/2025 4:58 PM EST Narrative CLIN[facility]YNC - 06/04/2025 5:14 PM EST Authorizing ProviderResult TypeResult StatusCorey Jossue DOCLINISYNCFinal Result Performing OrganizationAddressCity/State/ZIP CodePhone Number [facility] * SRMCOH PROTHROMBIN TIME INR W/O COUM (06/04/2025 4:53 PM EST) Only the most recent of2 resultswithin the time period is included. ComponentValueRef RangeTest MethodAnalysis TimePerformed AtPathologist Signature PROTHROMBIN TIME9.79.0 - 11.6 secTTB INR<0.93TBHComment: DESIRED INR: 2.0-3.0 CONDITIONS NOT LISTED BELOW 2.5-3.5 FOR PROSTHETIC HEART VALVE REPLACEMENT 2.5-3.5 RECURRENT THROMBOSIS Specimen (Source)Anatomical Location / LateralityCollection Method / Volume Collection TimeReceived Time06/04/2025 4:53 PM EST06/04/2025 4:58 PM EST Narrative CLINISYNC - 06/04/2025 5:16 PM EST Authorizing ProviderResult TypeResult StatusCorey Jossue DOCLINISYNCFinal Result Performing OrganizationAddLe[facility] South Jackson Streetty/State/ZIP CodePhone Number [facility] * CCF APTT (06/04/2025 4:53 PM [...] EST)ComponentValueRef RangeTest Method Analysis TimePerformed AtPathologist SignatureLACTATE BPYKJYAVZCCFL797(H)81 - 234 U/LTBHSpecimen (Source)Anatomical Location / LateralityCollection [...] OrganizationAddressCity/State/ZIP CodePhone Number [facility] * [facility] URINE T PROTEIN CREAT RATIO (06/04/2025 4:35 PM EST) Only the most recent of2 resultswithin the time period is included. ComponentValueRef RangeTest MethodAnalysis TimePerformed AtPathologist Signature TOTAL PROTEIN URINE RANDOM<6.0<=11.9 mg/dLTBHCREATININE URINE YOVWTT52.1420.00 - 300.00 mg/dLTBHSpecimen (Source)Anatomical Location / LateralityCollection [...] noted.TBHSTREP GP B NAAPerformed at: - [facility] KuttawaTBHSTREP GP B [id number] [place], [place] [id number] STREP GP B NAALab Director: Kaden Merino PhD, Phone: [phone] (Source)Anatomical Location / LateralityCollection Method / VolumeCollection TimeReceived Time05/26/2025 4:00 PM EST05/26/2025 9:24 PM EST Narrative [facility]YNC - 05/29/2025 1:09 PM EST Authorizing ProviderResult TypeResult StatusAmy Bin ONEILL BLOOD ORDERABLES Final ResultPerforming OrganizationAddressCity/State/ZIP CodePhone Number [facility] * (ABNORMAL) MHPT FIBRINOGEN (04/30/2025 11:12 AM EDT)ComponentValueRef Range Test MethodAnalysis TimePerformed AtPathologist TrpdfgtkfHODGJZMFOX442(H)200 - 400 mg/dLTBHSpecimen (Source)Anatomical Location / LateralityCollection Method / VolumeCollection TimeReceived Time04/30/2025 11:12 AM EDT1 11:20 AM EDT Narrative CLINISYNC - 04/30/2025 12:12 PM EDT Authorizing ProviderResult TypeResult StatusCorey Jossue DOCLINISYNCFinal Result Performing OrganizationAddressCity/State/ZIP CodePhone Number [facility] from Last 3 Months Insurance Care Teams Team MemberRelationshipSpecialtyStart DateEnd Date Josr Martinez MD [address] [facility] [place], [place] [address] PCP - GeneralFamily Medicine11/08/24
--- OUTSIDE RECORDS SUMMARY | 2025-07-14 13:27 | XMS_ITS | Encounter Summary ---
Author Organization [facility] Address [address] [facility] [place] [address] Care Team Providers Care Composition Floor Layer Name Role Phone Josr Martinez MD Primary Care Provider Encounter Details DateTypeDepartmentCare Team (Latest Contact Info)Lkhntagcxip37/23/2025Travel Social History Tobacco UseTypesPacks/DayYears UsedDateSmoking Tobacco: NeverSmokeless Tobacco: Current Comments:Vape Alcohol UseStandard Drinks/WeekCommentsNot Currently0 (1 standard drink = 0.6 oz pure alcohol)CommentsNoSex and Gender InformationValueDate RecordedSex Assigned at BirthNot on fileLegal XzqJzzskj69/07/2024 2:18 PM EDTGender Identity Not on fileSexual OrientationNot on filedocumented as of this encounter Plan of Treatment DateTypeDepartmentCare Team (Latest Contact Info)Ildtgxxcayk46/19/2026 1:50 PM ESTPostpartum Visit LAISHA MACKEY [address] [place] [address] [place] [address] Lissa Steward PA [address] [facility] [place], [facility] 09/04/2025 8:30 AM ESTProcedure Visit LAISHA MACKEY [address] [place] [address] [place] [address] Edy Marcum DO [address] [facility] [place] [address] documented as of this encounter Visit Diagnoses Not on filedocumented in this encounter Care Teams Team MemberRelationshipSpecialtyStart DateEnd Date Josr Martinez MD [address] [facility], [facility] [address] [place] [address] PCP - GeneralFamily Medicine11/08/24documented as of this encounter
--- OUTSIDE RECORDS SUMMARY | 2025-07-14 13:27 | XMS_ITS | Clinical Summary ---
Author Organization [facility] Address [address] [place] [address] Phone Care Team Providers Care Seconds Inspector Name Role Phone Josr Martinez PA-C Primary Care Provider [phone] Allergies No known active allergies Medications MedicationSigDispense [...] Additional Information Patient not taking.Reported on 11/19/2024 [id number] ACID-OM3 ORAL Take by mouth.Active Active Problems ProblemNoted DateDiagnosed DateLow blood sugar03/21/2023Low vitamin B12 level 03/21/2023Vitamin D svxxmrnoikwos87/05/2023Elevated /05/2023 Qshbnfusfccdz81/05/2023remenstrual yvssufri93/05/2023remenstrual syndrome 03/21/2023eneralized anxiety gqeslqmf29/14/2023 Family History Medical HistoryRelationNameCommentsHypertensionFatherDiabetesMaternal GrandfatherAlzheimer's diseaseMaternal GrandmotherDiabetesPaternal Grandfather Heart diseasePaternal GrandfatherRelationNameStatusCommentsFatherMaternal GrandfatherMaternal GrandmotherPaternal Grandfather Social History Tobacco UseTypesPacks/DayYears UsedDateSmoking Tobacco: NeverSmokeless Tobacco: Never Tobacco Cessation:Counseling Given: Not Answered PHQ-2AnswerDate RecordedPatient Health Questionnaire-2 Felkr080 CommentsUnknownSex and Gender InformationValueDate RecordedSex Assigned at Vcbzpr5201/09/2024 2:41 PM EDTLegal LqpDcjptl15/25/2022 10:21 PM ESTGender KtarcrunCalcxu08/25/2024 2:41 PM EDTSexual OrientationNot on file Last Filed Vital Signs Vital SignReadingTime TakenCommentsBlood Czcxacfe249/78011/19/2024 7:27 AM EDT Fifeq937311/19/2024 7:27 AM EMIIkzlsnelyvb16.6 ??C (97.8 ??F)09/18/2024 3:27 PM ESTRespiratory Qnkn093709/18/2024 3:27 PM ESTOxygen Grpzgmbymo13%11/19/2024 7:27 AM EDTInhaled Oxygen Concentration--Qpiuea69.3 kg (144 lb)11/19/2024 7:27 AM EDT Ihjvxg222.8 cm (5' 2.5 )11/19/2024 7:27 AM EDTBody Mass Index25.9211/19/2024 7:27 AM EDT Plan of Treatment DateTypeDepartmentCare Team (Latest Contact Info)Xmvjadjyrqd21/07/2026 8:00 AM EDTOffice Visit [facility] [address] [place] [address] Josr Martinez PA-C [address] [facility], [address] [place] [address] Health MaintenanceDue DateLast DoneCommentsHIV Djngmcdmq1998Lipid Panel 1998MMR Vaccines (1 of 1 - Standard series)1999Hepatitis C Screening 01/24/2016Hepatitis B Vaccines (1 of 3 - 19+ 3-dose series)2017HPV/Cotest 2019DTaP/Tdap/Td Vaccines (1 - Tdap)01/24/2020HPV Vaccines (1 - 3-dose standard series)5COVID-19 Vaccine (1 - season)2025 Influenza Vaccine (#1)5Yearly Adult Caxukfix94/26/56952708/10/2023, 07/27/2022, 1Cervical Cancer Vttfhnwhm02/25/2027Pap Smear06/10/2027 06/10/2024, 07/29/2021Zoster Vaccines (1 of 2)01/24/2048HIB VaccinesAged OutNo longer eligible based on patient's age to complete this topicHepatitis A VaccinesAged OutNo longer eligible based on patient's age to complete this topic IPV VaccinesAged OutNo longer eligible based on patient's age to complete this topicMeningococcal VaccineAged OutNo longer eligible based on patient's age to complete this topicPneumococcal Vaccine: Pediatrics and At-Risk Adult Patients Aged OutNo longer eligible based on patient's age to complete this topic Rotavirus VaccinesAged OutNo longer eligible based on patient's age to complete this topic Insurance Care Teams Team MemberRelationshipSpecialtyStart DateEnd Josr Moran PA-C [address] [facility], [facility] [address] [place] [address] PCP - GeneralFamily Medicine11/24/23
[2025-07-14 13:37] LABS: Hematocrit 36.5 % (36.0-48.0); Hemoglobin 11.5 g/dL (12.0-16.0); Immature Granulocytes Abs Auto 0.01 10^3/uL (0.00-0.03); Immature Granulocytes Pct Auto 0.2 % (0.0-0.5); Lymphocytes Absolute Auto 1.9 10^3/uL (1.2-3.8); Mean Corpuscular HGB Conc 31.5 g/dL (29.9-35.2); Mean Corpuscular Hemoglobin 28.3 pg (26.7-34.0); Mean Corpuscular Volume 89.9 fL (81.0-99.0); Platelet Count 338 10^3/uL (150-450); Red Blood Count 4.06 10^6/uL (4.20-5.40); White Blood Count 5.1 10^3/uL (4.0-11.0)
== END 2025-07-14 13:24 | disposition home or self-care (01) ==
LOC: LAB 13:24
PROVIDERS: PCP Physician Assistant; Visit Provider Physician Assistant
DX: D64.9 Anemia, unspecified (principal)
CPT/HCPCS: 36415; 85025